=== PATIENT | female | born 1925 | race Caucasian/White ===

== ENCOUNTER 2016-04-15 15:20 | Inpatient (IN) | payer BC ==
--- NOTE | 2016-04-15 15:28 | PDOC ---
History of Present Illness - General Stated Complaint: FALL Time Seen by Provider: 04/15/16 15:23 - History of Present Illness Initial Comments: 04/15/16 16:26 89 year old female with pmh CVA, HTN, HLPD, presented to the ED s/p witnessed mechanical fall where the patient fell foward. The pt injured both knees, nasal bridge laceration. The right knee is tender and swollen and she said is has been unable to bear weight on it. Pt is awake, alert and oriented to time, place person and situation, did not lose consciousness, no chest pain, no shortness of breath, no n/v, no dizziness or lightheadedness, no change in vision, no numbness or tingling. PMH: CVA, HTN, HLPD, Hyperthyroidism, MVP PSH: Hysterectomy NO smoking, no alcohol, no recreational drug Allergic to Ciprofloxacin, Codeine, penicillins ROS CONSTITUTIONAL: Absent: fever, no chills, no fatigue EYES: Absent: visual changes ENT: Absent: ear pain, no sore throat CARDIOVASCULAR: Absent: chest pain, no palpitations RESPIRATORY: Absent: cough, no SOB GI: Absent: abdominal pain, no nausea, no vomiting, no constipation, no diarrhea GENITOURINARY: Absent: dysuria, no frequency, no hematuria MUSCULOSKELETAL: right knee pain Absent: back pain, no arthralgia, no myalgia SKIN: Absent: rash NEURO: Absent: headache, focal weakness or paresthesias, dizziness, unsteady gait, seizure, mental status changes, bladder or bowel incontinence PE GENERAL: Well-appearing, well-nourished. No apparent distress. HEENT: Normocephalic, atraumatic. PERRL, EOM intact. CARDIOVASCULAR: Normal S1, S2. Regular rate and rhythm. PULMONARY: Clear to auscultation bilaterally. ABDOMEN: Soft, non-distended, non-tender. EXTREMITIES: b/l knee bruising and swelling. Right knee tenderness and limited range of motion to due severe pain. SKIN: 3 cm vertical laceration on nasal bridge bleeding Warm, dry. No rash NEUROLOGICAL: No periorbital tenderness, no rhinorrea, no otorrhea, no raccon sign, no battles signs, no hemotempaneum Alert, awake, appropriate. Cranial nerves 2-12 intact. No deficits to light touch and temperature in face, upper extremities and lower extremities. No motor deficits in the in face, upper extremities and lower extremities. Normoreflexic in the upper and lower extremities. Normal speech. Toes are down- going bilaterally. Gait is not observed 04/15/16 17:17 Past History - Past Medical History Allergies/Adverse Reactions: Allergies Allergy/AdvReac Type Severity Reaction Status Date / Time ciprofloxacin [From Cipro] Allergy Verified 04/15/16 15:40 ciprofloxacin HCl Allergy Verified 04/15/16 15:40 [From Cipro] codeine Allergy Verified 04/15/16 15:40 Penicillins Allergy Verified 04/15/16 15:40 Home Medications: Ambulatory Orders Levothyroxine [Synthroid -] 0.1 mg PO DAILY 02/17/13 Lisinopril [Prinivil] 10 mg PO DAILY 02/17/13 Aspirin/Dipyridamole [Aggrenox -] 1 combo PO BID 10/27/13 Metoprolol Tartrate [Lopressor -] 25 mg PO DAILY 10/27/13 Simvastatin [Zocor -] 20 mg PO HS 10/27/13 Nitroglycerin Sublingual [Nitrostat -] 0.4 mg SL PRN 09/16/14 Ranitidine [Zantac -] 150 mg PO HS #0 tablet 09/17/14 Aspirin/Dipyridamole [Aggrenox -] 1 combo PO BID 04/15/16 Cholecalciferol (Vitamin D3) [Vitamin D3 -] 400 unit PO DAILY 04/15/16 Famotidine/Ca Carb/Mag Hydrox [Pepcid Complete Tablet Chew] 1 each PO DAILY 02/19 Pantoprazole Sodium 40 mg PO DAILY 04/15/16 Cardiac Disorders: Yes (CAD, ANGINA,MITRAL VALVE PROPLAPSE) GI Disorders: Yes (REFLUX) HTN: Yes Hypercholesterolemia: Yes Suicide Attempt (Hx): No Thyroid Disease: Yes - Immunization History Immunization Up to Date: Yes - Psycho/Social/Smoking Cessation Hx Anxiety: No Suicidal Ideation: No Smoking Status: Yes Smoking History: Unknown if ever smoked Number of Cigarettes Smoked Daily: 0 Hx Alcohol Use: No Drug/Substance Use Hx: No Substance Use Type: None Hx Substance Use Treatment: No ED Treatment Course - LABORATORY CBC & Chemistry Diagram: 04/15/16 15:50 04/15/16 15:50 Medical Decision Making - Medical Decision Making 04/15/16 17:18 89 year old female with pmh CVA, HTN, HPLD s/p fall with b/l knee injury and nose laceration Plastic surgery consulted Dr Webb CBC CMP Consider cardial profile Pt PTT CT head CT facial Bones Xray b/l knee tetanus Vaccine Nose laceration sutured By DR Mckeon. Pt is to follow with Dr Pipo Villafuerte [phone] [place] [address] Awaiting result from Head/facial Bones CT Awaiting results from Xray of the Knee 04/15/16 18:25 XRay left knee showed no acute fracture Xray Right knee showed patellar fracture Awaiting CT head and Facial bone results Orthopedist consulted Dr Claros Will Admit to [facility] waiting for ortho consult 04/15/16 19:[address] showed no acute parenchyma abnormality. No hemorrhage, mass, or acute territorial infarct, no skull fracture. Atrophy and chronic small vessel ischemic changes. B/l nasal fractures Facial bone CT Laceration of mid nasal soft tissue. B/l nasal fracture, probably acute. Mucoperiosteal thickening paranasal sinuses. Small fluid right maxillary sinus. Pt will be admitted to for patellar fracture *DC/Admit/Observation/Transfer Diagnosis at time of Disposition: Fracture of right patella - Discharge Dispostion Admit: Yes Decision to Admit order Date/Time: 04/15/16 19:38 S/P fall with nose fracture and right patellar fracture. Unable to bear weight on right leg. Will place on observation pending orthopedist evaluation.
--- NOTE | 2016-04-15 15:49 | PDOC ---
Attending Attestation - Resident Resident Name: Jose Carlos Pineda - ED Attending Attestation I have performed the following: I have examined & evaluated the patient, The case was reviewed & discussed with the resident, I agree w/resident's findings & plan, Exceptions are as noted - HPI HPI: 04/15/16 15:43 The patient is an 89 year old female, who takes aggrenox, and presents with facial trauma after a mechanical fall. She tripped over irregular ground. She denies loss of consciousness. She denies neck, chest, back pain or injury. She injured her face and right/left knee. 04/15/16 15:50 04/15/16 15:55 - Physicial Exam PE: 04/15/16 15:49 There is an irregular laceration to the nasal bridge There is minimal underlying nasal bone tenderness There is bilateral knee tenderness (R>L) 04/15/16 15:55 - Medical Decision Making 04/15/16 15:51 Will obtain Head and Facial CT Will obtain bilateral knee films Will administer tetanus 04/15/16 16:18 Plastics is at the bedside, for laceration repair
[2016-04-15 16:07] VITALS: BMI 26.6
[2016-04-15 16:15] LABS: BASOPHIL 0.6 % (0-2.0); MCH 29.9 pg (25.7-33.7); MCHC 32.4 g/dl (32.0-36.0); MEAN CELL VOLUME 92.2 fl (80-96); MEAN PLT VOLUME 8.9 fl (7.5-11.1); NEUTROPHILS 69.5 % (42.8-82.8); PLATELET COUNT 268 K/MM3 (134-434); RDW 14.3 % (11.6-15.6); WHITE BLOOD COUNT 10.2 K/mm3 (4.0-10.0)
[2016-04-15] MEDS ORDERED: DIPHTH,PERTUSS(ACELL),TET 0.5 ML DISP.SYRIN IM ONE (16:18)
[2016-04-15 16:37] LABS: INR 1.05 (0.82-1.09); PROTHROMBIN TIME (PATIENT) 11.6 SEC (9.98-11.88)
[2016-04-15 16:39] LABS: ACTIVATED PTT 29.7 SECONDS (26.9-34.4)
[2016-04-15 16:49] LABS: ALBUMIN 3.6 g/dl (3.4-5.0); ALK PHOS 43 U/L (45-117); ANION GAP 9 (8-16); BILIRUBIN,TOTAL 0.4 mg/dL (0.2-1.0); CALCIUM 8.6 mg/dL (8.5-10.1); CO2 24 mmol/L (21-32); CREATININE 0.8 mg/dL (0.55-1.02); GLUCOSE,RANDOM 88 mg/dL (74-106); SGOT/AST 17 U/L (15-37); SGPT/ALT 21 U/L (12-78); TOT PROT 6.6 g/dl (6.4-8.2)
--- NOTE | 2016-04-15 19:30 | PN ---
Teaching Attending Note Name of Resident: Steffen Pryor ATTENDING PHYSICIAN STATEMENT I saw and evaluated the patient. I reviewed the resident's note and discussed the case with the resident. I agree with the resident's findings and plan as documented. SUBJECTIVE: 89 F with pmhx of CVA, HTN, HLD, hypothyriodism, who had tripped over a pot hole and presented with facial lacerations/trauma and R. knee swelling and pain. Denies any chest pain, pressure or shortness of breath. No dizziness, lightheadedness or loc. OBJECTIVE: Physical: VS: Vital Signs Period Temp Pulse Resp BP Sys/Smith Pulse Ox Last 24 Hr 98 F 61 20 160/82 100 GEN: NAD, Resting in bed HEENT: Nasal laceration, bilateral facial bruising under eye, PERRL, EOMI CARD: RRR S1, S2 RESP: CTAB ABD: BSX4, NTD to palpation EXT: R. knee with bruising and edema, tender to palpation, DP pulses intact. CBCD WBC 10.2 K/mm3 (4.0-10.0) H D 04/15/16 15:50 RBC 4.65 M/mm3 (3.60-5.2) 04/15/16 15:50 Hgb 13.9 GM/dL (10.7-15.3) 04/15/16 15:50 Hct 42.9 % (32.4-45.2) 04/15/16 15:50 MCV 92.2 fl (80-96) 04/15/16 15:50 MCHC 32.4 g/dl (32.0-36.0) 04/15/16 15:50 RDW 14.3 % (11.6-15.6) 04/15/16 15:50 Plt Count 268 K/MM3 (134-434) D 04/15/16 15:50 MPV 8.9 fl (7.5-11.1) 04/15/16 15:50 CMP Sodium 144 mmol/L (136-145) 04/15/16 15:50 Potassium 3.9 mmol/L (3.5-5.1) 04/15/16 15:50 Chloride 111 mmol/L (98-107) H 04/15/16 15:50 Carbon Dioxide 24 mmol/L (21-32) 04/15/16 15:50 Anion Gap 9 (8-16) 04/15/16 15:50 BUN 17 mg/dL (7-18) 04/15/16 15:50 Creatinine 0.8 mg/dL (0.55-1.02) 04/15/16 15:50 Creat Clearance w eGFR > 60 (>60) 04/15/16 15:50 Random Glucose 88 mg/dL (74-106) 04/15/16 15:50 Calcium 8.6 mg/dL (8.5-10.1) 04/15/16 15:50 Total Bilirubin 0.4 mg/dL (0.2-1.0) D 04/15/16 15:50 AST 17 U/L (15-37) 04/15/16 15:50 ALT 21 U/L (12-78) 04/15/16 15:50 Alkaline Phosphatase 43 U/L (45-117) L D 04/15/16 15:50 Total Protein 6.6 g/dl (6.4-8.2) 04/15/16 15:50 Albumin 3.6 g/dl (3.4-5.0) 04/15/16 15:50 Medication Instructions Recorded Levothyroxine [Synthroid -] 0.1 mg PO DAILY 02/17/13 Lisinopril [Prinivil] 10 mg PO DAILY 02/17/13 Aspirin/Dipyridamole [Aggrenox -] 1 combo PO BID 10/27/13 Metoprolol Tartrate [Lopressor -] 25 mg PO DAILY 10/27/13 Simvastatin [Zocor -] 20 mg PO HS 10/27/13 Nitroglycerin Sublingual 0.4 mg SL PRN 09/16/14 [Nitrostat -] Ranitidine [Zantac -] 150 mg PO HS #0 tablet 09/17/14 Aspirin/Dipyridamole [Aggrenox -] 1 combo PO BID 04/15/16 Cholecalciferol (Vitamin D3) 400 unit PO DAILY 04/15/16 [Vitamin D3 -] Famotidine/Ca Carb/Mag Hydrox 1 each PO DAILY 04/15/16 [Pepcid Complete Tablet Chew] Pantoprazole Sodium 40 mg PO DAILY 04/15/16 CT HEAD- No acute hemmorage- Lytic lesion parietal bone ASSESSMENT AND PLAN: 89 F with pmhx of htn, hld, hypothyriod, cva who presents s/p fall and found to have a right patellar fracture 1.) Right Patellar Fracture - NPO - Ortho Consult - Type and Screen - Coags in am - Cbc - Pain control - Hold Aggregnox 2.) Nasal Laceration - Seen by plastics - Recc Bactrim and Bacitracin ointment on nasal bridge 3.) Lytic Lesion in Parietal Bone - Needs outpt. Bone Scan 4.) HTN - C/W Lopressor/Bakari-I 5.) Hypothyriodism - C/W home dose Synthriod 6.) HLD - C/W Statin 7.) DVT Ppx - SCD F: None E: Trend N: NPO Admit to Med-Sx
[2016-04-15] MEDS ORDERED: ACETAMINOPHEN 1000 MG/100 ML VIAL (NON FORMULARY) IVPB ONE (19:31)
[2016-04-15] MEDS ORDERED: ACETAMINOPHEN INJECTION 100 ML IVPB ONE (19:53)
[2016-04-15] MEDS ORDERED: NITROGLYCERIN SUBLINGUAL 1/150 0.4 MG TAB SL PRN (20:15)
[2016-04-15] MEDS ORDERED: PATIENT'S OWN MEDICATION (NON-FORMULARY) (Famotidine/Ca Carb/Mag Hydrox [Pepcid Complete T PO SCH (20:15)
--- NOTE | 2016-04-15 20:40 | HP ---
CHIEF COMPLAINT: I fell and broke my knee PCP: Dr. Fan HISTORY OF PRESENT ILLNESS: 89 yo F with h/o CVA, HTN, HLD, hypothyroidism, GERD presented to the ED after a witnessed mechanical fall. Patient was crossing the street and tripped over a pothole in where her foot was caught. She subsequently fell forward onto the ground and landed on her b/l knees and face. However, she did not lose consciousness. She is now unable to move her R leg due to severe (10/10) pain on both passive and active movement. Patient also sustained. a laceration to the nasal bridge and multiple bruises on upper lip, nose and cheeks. She denies fever, chills, n/v, chest pain, dizziness, vertigo, vision change, or weakness. ER course was notable for: (1) XRay left knee showed no acute fracture. Xray Right knee showed patellar fracture (2) Nose laceration sutured By DR Mckeon. (3) Head CT negative for bleed, positive for nasal fracture bilaterally Recent Travel: No PAST MEDICAL HISTORY: CVA, HTN, HLD, hypothyroidism, GERD PAST SURGICAL HISTORY: Hysterectomy Social History: Smoking: denies Alcohol: denies Drugs: denies Family History: Father (Parkinsons), Mother (cirrhosis), Brother (bladder cancer ) Allergies ciprofloxacin [From Cipro] Allergy (Verified 04/15/16 15:40) ciprofloxacin HCl [From Cipro] Allergy (Verified 04/15/16 15:40) codeine Allergy (Verified 04/15/16 15:40) Penicillins Allergy (Verified 04/15/16 15:40) HOME MEDICATIONS: Medication Instructions Recorded Levothyroxine [Synthroid -] 0.1 mg PO DAILY 02/17/13 Lisinopril [Prinivil] 10 mg PO DAILY 02/17/13 Aspirin/Dipyridamole [Aggrenox -] 1 combo PO BID 10/27/13 Metoprolol Tartrate [Lopressor -] 25 mg PO DAILY 10/27/13 Simvastatin [Zocor -] 20 mg PO HS 10/27/13 Nitroglycerin Sublingual 0.4 mg SL PRN 09/16/14 [Nitrostat -] Ranitidine [Zantac -] 150 mg PO HS #0 tablet 09/17/14 Aspirin/Dipyridamole [Aggrenox -] 1 combo PO BID 04/15/16 Cholecalciferol (Vitamin D3) 400 unit PO DAILY 04/15/16 [Vitamin D3 -] Famotidine/Ca Carb/Mag Hydrox 1 each PO DAILY 04/15/16 [Pepcid Complete Tablet Chew] Pantoprazole Sodium 40 mg PO DAILY 04/15/16 REVIEW OF SYSTEMS CONSTITUTIONAL: Absent: fever, chills, diaphoresis, generalized weakness, malaise, loss of appetite, weight change HEENT: nose pain Absent: rhinorrhea, nasal congestion, throat pain, throat swelling, difficulty swallowing, mouth swelling, ear pain, eye pain, visual changes CARDIOVASCULAR: Absent: chest pain, syncope, palpitations, irregular heart rate, lightheadedness , peripheral edema RESPIRATORY: Absent: cough, shortness of breath, dyspnea with exertion, orthopnea, wheezing, stridor, hemoptysis GASTROINTESTINAL: Absent: abdominal pain, abdominal distension, nausea, vomiting, diarrhea, constipation, melena, hematochezia GENITOURINARY: Absent: dysuria, frequency, urgency, hesitancy, hematuria, flank pain, genital pain MUSCULOSKELETAL: knee pain Absent: myalgia, arthralgia, joint swelling, back pain, neck pain SKIN: Absent: rash, itching, pallor HEMATOLOGIC/IMMUNOLOGIC: Absent: easy bleeding, easy bruising, lymphadenopathy, frequent infections ENDOCRINE: Absent: unexplained weight gain, unexplained weight loss, heat intolerance, cold intolerance NEUROLOGIC: Absent: headache, focal weakness or paresthesias, dizziness, unsteady gait, seizure, mental status changes, bladder or bowel incontinence PSYCHIATRIC: Absent: anxiety, depression, suicidal or homicidal ideation, hallucinations. PHYSICAL EXAMINATION Last Vital Signs Temp Pulse Resp BP Pulse Ox 98 F 70 18 137/70 97 04/15/16 15:40 04/15/16 20:20 04/15/16 20:20 04/15/16 20:20 04/15/16 20:20 GENERAL: Awake, alert, and fully oriented, in mild pain. HEAD: Normal with no signs of trauma. EYES: Pupils equal, round and reactive to light, extraocular movements intact, sclera anicteric, conjunctiva clear. No lid lag. EARS, NOSE, THROAT: laceration to nasal bridge, bruises and hematoma in b/l nasal wings and upper lips. oropharynx clear without exudates. Moist mucous membranes. NECK: Normal range of motion, supple without lymphadenopathy, JVD, or masses. LUNGS: Breath sounds equal, clear to auscultation bilaterally. No wheezes, and no crackles. No accessory muscle use. HEART: Regular rate and rhythm, normal S1 and S2 without murmur, rub or gallop. ABDOMEN: Soft, nontender, not distended, normoactive bowel sounds, no guarding, no rebound, no masses. No hepatomegaly or splenomegaly. UPPER EXTREMITIES: bruises in L middle finger and ring finger LOWER EXTREMITIES: absent pulses b/l, cold extremities, No calf tenderness. No peripheral edema. R knee swelling and bruise, pain on passive and active movement. L knee bruise, full ROM. NEUROLOGICAL: Cranial nerves II-XII intact. Normal speech. PSYCHIATRIC: Cooperative. Good eye contact. Appropriate mood and affect. Laboratory Last Values WBC 10.2 K/mm3 (4.0-10.0) H D 04/15/16 15:50 RBC 4.65 M/mm3 (3.60-5.2) 04/15/16 15:50 Hgb 13.9 GM/dL (10.7-15.3) 04/15/16 15:50 Hct 42.9 % (32.4-45.2) 04/15/16 15:50 MCV 92.2 fl (80-96) 04/15/16 15:50 MCHC 32.4 g/dl (32.0-36.0) 04/15/16 15:50 RDW 14.3 % (11.6-15.6) 04/15/16 15:50 Plt Count 268 K/MM3 (134-434) D 04/15/16 15:50 MPV 8.9 fl (7.5-11.1) 04/15/16 15:50 Neutrophils % 69.5 % (42.8-82.8) D 04/15/16 15:50 Lymphocytes % 21.3 % (8-40) D 04/15/16 15:50 Monocytes % 7.6 % (3.8-10.2) 04/15/16 15:50 Eosinophils % 1.0 % (0-4.5) 04/15/16 15:50 Basophils % 0.6 % (0-2.0) 04/15/16 15:50 INR 1.05 (0.82-1.09) 04/15/16 15:50 PTT (Actin FS) 29.7 SECONDS (26.9-34.4) 04/15/16 15:50 Sodium 144 mmol/L (136-145) 04/15/16 15:50 Potassium 3.9 mmol/L (3.5-5.1) 04/15/16 15:50 Chloride 111 mmol/L (98-107) H 04/15/16 15:50 Carbon Dioxide 24 mmol/L (21-32) 04/15/16 15:50 Anion Gap 9 (8-16) 04/15/16 15:50 BUN 17 mg/dL (7-18) 04/15/16 15:50 Creatinine 0.8 mg/dL (0.55-1.02) 04/15/16 15:50 Creat Clearance w eGFR > 60 (>60) 04/15/16 15:50 Random Glucose 88 mg/dL (74-106) 04/15/16 15:50 Calcium 8.6 mg/dL (8.5-10.1) 04/15/16 15:50 Total Bilirubin 0.4 mg/dL (0.2-1.0) D 04/15/16 15:50 AST 17 U/L (15-37) 04/15/16 15:50 ALT 21 U/L (12-78) 04/15/16 15:50 Alkaline Phosphatase 43 U/L (45-117) L D 04/15/16 15:50 Total Protein 6.6 g/dl (6.4-8.2) 04/15/16 15:50 Albumin 3.6 g/dl (3.4-5.0) 04/15/16 15:50 Urine Color Yellow 04/15/16 20:20 Urine Appearance Slcloudy 04/15/16 20:20 Urine pH 5.0 (5.0-8.0) 04/15/16 20:20 Ur Specific [place] 1.016 (1.001-1.035) 04/15/16 20:20 Urine Protein Negative (NEGATIVE) 04/15/16 20:20 Urine Glucose (UA) Negative (NEGATIVE) 04/15/16 20:20 Urine Ketones Trace (NEGATIVE) H 04/15/16 20:20 Urine Blood 2+ (NEGATIVE) H 04/15/16 20:20 Urine Nitrite Negative (NEGATIVE) 04/15/16 20:20 Urine Bilirubin Negative (NEGATIVE) 04/15/16 20:20 Urine Urobilinogen Negative E.U./dl (0.2-1.0) 04/15/16 20:20 Ur Leukocyte Esterase 2+ (NEGATIVE) H 04/15/16 20:20 Blood Type A POSITIVE 04/15/16 20:00 Antibody Screen Negative 04/15/16 20:00 Imaging studies: X-ray: left knee showed no acute fracture. Right knee showed patellar fracture Head CT: negative for bleed, positive for nasal fracture bilaterally ASSESSMENT/PLAN: 89 yo F admitted to med/surg for R patellar fracture s/p mechanical fall. Patellar fracture - tylenol for pain control - orthopedics consult Nasal fracture - laceration sutured - bacitracin to nasal wound - bactrim PO BID Hypercholesteremia - cont. home meds HTN - cont. home meds h/o CVA - hold aggrenox for orthopedic procedure next day FEN - NS 75cc/hr - normal lytes - NPO after midnight Prophylaxis - DVT: hold aggrenox; SCD contraindicated - GI: on protonix - deconditioning: fall precaution, bed rest Visit type - Emergency Visit Emergency Visit: Yes ED Registration Date: 04/15/16 Care time: The patient presented to the Emergency Department on the above date and was hospitalized for further evaluation of their emergent condition. - New Patient This patient is new to me today: Yes Date on this admission: 04/15/16 - Critical Care Critical Care patient: No
[2016-04-15 21:08] LABS: URINE APPEARANCE SLCLOUDY; URINE BILIRUBIN NEGATIVE (NEGATIVE); URINE COLOR YELLOW; URINE GLUCOSE (UA) NEGATIVE (NEGATIVE); URINE KETONE TRACE (NEGATIVE); URINE NITRITE NEGATIVE (NEGATIVE); URINE PROTEIN NEGATIVE (NEGATIVE); URINE UROBILINOGEN NEGATIVE E.U./dl (0.2-1.0)
[2016-04-15 21:09] LABS: URINE BLOOD 2+ (NEGATIVE); URINE LEUK ESTERASE 2+ (NEGATIVE)
[2016-04-15 21:10] LABS: URINE MUCUS RARE; URINE RBC 11 /hpf (0-3); URINE WBC 4 /hpf (3-5)
[2016-04-15 21:40] LABS: TROPONIN I < 0.02 ng/ml (0.015-0.045)
[2016-04-15] MEDS: SODIUM CHLORIDE 1,000 ML IV SCH (22:00)
[2016-04-15] MEDS: BACITRACIN 30 GM TUBE TOPICAL OINTMENT TP SCH (22:08)
[2016-04-15] MEDS: SULFAMETHOXAZOLE/TRIMETHOPRIM 800MG/160MG D.S. TABLET PO SCH (22:08)
[2016-04-15] MEDS: METOPROLOL TARTRATE 25 MG TABLET (FP) PO SCH (22:08)
[2016-04-15] MEDS: PANTOPRAZOLE 40 MG TABLET (FP) PO SCH (22:08)
[2016-04-15] MEDS: LISINOPRIL 10 MG TABLET (FP) PO SCH (22:08)
[2016-04-15] MEDS: RANITIDINE HCL 150 MG TABLET (FP) PO SCH (22:08)
[2016-04-15] MEDS: CHOLECALCIFEROL (VITAMIN D3) 400 UNIT TABLET (FP) PO SCH (22:08)
[2016-04-15] MEDS: ATORVASTATIN CA 10 MG TABLET (FP) PO SCH (22:08)
[2016-04-16] MEDS: ACETAMINOPHEN 325 MG TABLET (FP) PO PRN ×2 (03:13→09:51)
[2016-04-16] MEDS: LEVOTHYROXINE NA 100 MCG TABLET (FP) PO SCH (06:11)
[2016-04-16 08:25] LABS: MCH 31.1 pg (25.7-33.7); MCHC 33.6 g/dl (32.0-36.0); MEAN CELL VOLUME 92.6 fl (80-96); MEAN PLT VOLUME 8.7 fl (7.5-11.1); PLATELET COUNT 216 K/MM3 (134-434); RDW 14.4 % (11.6-15.6); WHITE BLOOD COUNT 8.9 K/mm3 (4.0-10.0)
[2016-04-16 08:40] LABS: INR 1.16 (0.82-1.09); PROTHROMBIN TIME (PATIENT) 12.8 SEC (9.98-11.88)
[2016-04-16 08:42] LABS: ACTIVATED PTT 30.4 SECONDS (26.9-34.4)
[2016-04-16 09:07] LABS: CALCIUM 8.7 mg/dL (8.5-10.1); CREATININE 0.8 mg/dL (0.55-1.02)
[2016-04-16] MEDS: METOPROLOL TARTRATE 25 MG TABLET (FP) PO SCH (09:51)
[2016-04-16] MEDS: SULFAMETHOXAZOLE/TRIMETHOPRIM 800MG/160MG D.S. TABLET PO SCH ×2 (09:51→21:46)
[2016-04-16] MEDS: LISINOPRIL 10 MG TABLET (FP) PO SCH (09:51)
[2016-04-16] MEDS: CHOLECALCIFEROL (VITAMIN D3) 400 UNIT TABLET (FP) PO SCH (09:51)
[2016-04-16] MEDS: PANTOPRAZOLE 40 MG TABLET (FP) PO SCH (09:51)
[2016-04-16] MEDS: BACITRACIN 30 GM TUBE TOPICAL OINTMENT TP SCH ×2 (09:54→21:46)
[2016-04-16] MEDS: SODIUM CHLORIDE 1,000 ML IV SCH ×2 (09:55→21:49)
--- NOTE | 2016-04-16 10:34 | PN ---
Physical Exam: SUBJECTIVE: Patient seen and examined. She complains of pain in her right knee. OBJECTIVE: Vital Signs Period Temp Pulse Resp BP Sys/Smith Pulse Ox Last 24 Hr 97.2 F-98.0 F 60-74 18-20 131-138/60-77 95-97 GENERAL: The patient is awake, alert, and fully oriented, in no acute distress. HEAD: Periorbital ecchymoses. Laceration of bridge of nose. NECK: Trachea midline, full range of motion, supple. LUNGS: Breath sounds equal, clear to auscultation bilaterally, no wheezes, no crackles, no accessory muscle use. HEART: Regular rate and rhythm, S1, S2 without murmur, rub or gallop. ABDOMEN: Soft, nontender, nondistended, normoactive bowel sounds, no guarding, no rebound, no hepatosplenomegaly, no masses. EXTREMITIES: 2+ pulses, warm, well-perfused, no edema. Right knee swollen with ecchymosis. Laboratory Results - last 24 hr 04/15/16 04/15/16 04/15/16 20:00 20:20 20:54 WBC RBC Hgb Hct MCV MCHC RDW Plt Count MPV INR PTT (Actin FS) Sodium Potassium Chloride Carbon Dioxide Anion Gap BUN Creatinine Random Glucose Calcium Creatine Kinase 120 Troponin I < 0.02 Urine Color Yellow Urine Appearance Slcloudy Urine pH 5.0 Ur Specific [place] 1.016 Urine Protein Negative Urine Glucose (UA) Negative Urine Ketones Trace H Urine Blood 2+ H Urine Nitrite Negative Urine Bilirubin Negative Urine Urobilinogen Negative Ur Leukocyte Esterase 2+ H Urine RBC 11 Urine WBC 4 Ur Epithelial Cells Rare Urine Mucus Rare Blood Type A POSITIVE Antibody Screen Negative 04/16/16 04/16/16 04/16/16 07:15 07:15 07:15 WBC 8.9 RBC 3.98 Hgb 12.4 D Hct 36.8 MCV 92.6 MCHC 33.6 RDW 14.4 Plt Count 216 MPV 8.7 INR 1.16 H PTT (Actin FS) 30.4 Sodium 146 H Potassium 4.6 Chloride 112 H Carbon Dioxide 27 Anion Gap 7 L BUN 14 Creatinine 0.8 Random Glucose 82 Calcium 8.7 Creatine Kinase Troponin I Urine Color Urine Appearance Urine pH Ur Specific [place] Urine Protein Urine Glucose (UA) Urine Ketones Urine Blood Urine Nitrite Urine Bilirubin Urine Urobilinogen Ur Leukocyte Esterase Urine RBC Urine WBC Ur Epithelial Cells Urine Mucus Blood Type Antibody Screen Active Medications Generic Name Dose Route Start Last Admin Trade Name Freq PRN Reason Stop Dose Admin Acetaminophen 650 mg 04/15/16 21:45 04/16/16 09:51 Tylenol - PO 650 mg Q6H PRN Administration PAIN SCALE 6-10 Atorvastatin Calcium 10 mg 04/15/16 22:00 04/15/16 22:08 Lipitor - PO 10 mg HS RENETTA Administration Bacitracin 1 applic 04/15/16 22:00 04/16/16 09:54 Bacitracin - TP 1 applic BID RENETTA Administration Cholecalciferol 400 unit 04/15/16 20:45 04/16/16 09:51 Vitamin D3 - PO 400 unit DAILY RENETTA Administration Sodium Chloride 1,000 mls @ 75 mls/hr 04/15/16 22:00 04/16/16 09:55 Normal Saline - IV 75 mls/hr ASDIR RENETTA Administration Levothyroxine Sodium 100 mcg 04/16/16 07:00 04/16/16 06:11 Synthroid - PO 100 mcg DAILY@0700 RENETTA Administration Lisinopril 10 mg 04/15/16 20:15 04/16/16 09:51 Prinivil PO 10 mg DAILY RENETTA Administration Metoprolol Tartrate 25 mg 04/15/16 20:15 04/16/16 09:51 Lopressor - PO 25 mg DAILY RENETTA Administration Nitroglycerin 0.4 mg 04/15/16 20:15 Nitrostat - SL PRN PRN Pantoprazole Sodium 40 mg 04/15/16 20:45 04/16/16 09:51 Protonix - PO 40 mg DAILY RENETTA Administration Ranitidine HCl 150 mg 04/15/16 22:00 04/15/16 22:08 Zantac - PO 150 mg HS RENETTA Administration Trimethoprim/Sulfamethoxazole 1 each 04/15/16 22:00 04/16/16 09:51 Bactrim Ds - PO 1 each BID RENETTA Administration ASSESSMENT/PLAN: This is an 89-year-old woman with a history of HTN, hyperlipidemia, CVA, hypothyroidism, GERD who came to the ER with a right patellar fracture after a fall. 1. Right patellar fracture - Pain control - Orthopedic surgery consult 2. Nasal bone fractures - Laceration sutured - Continue Bacitracin and Bactrim 3. Hyperlipidemia - Continue Lipitor 4. Hypertension - Continue Lisinopril, Lopressor 5. History of CVA - Aggrenox held secondary to trauma and for possibility of surgery
[2016-04-16] MEDS: traMADol HCL 50 MG TABLET PO PRN ×2 (11:04→21:45)
--- NOTE | 2016-04-16 11:30 | EKG ---
Test Reason : Blood Pressure : / mmHG Vent. Rate : 075 BPM Atrial Rate : 075 BPM P-R Int : 156 ms QRS Dur : 074 ms QT Int : 428 ms P-R-T Axes : 096 -06 -24 degrees QTc Int : 477 ms NORMAL SINUS RHYTHM WITH SINUS ARRHYTHMIA ST PROLONGED QT ABNORMAL ECG WHEN COMPARED WITH ECG OF 16-SEP-2014 02:22, CRITERIA FOR SEPTAL INFARCT ARE NO LONGER PRESENT NONSPECIFIC T WAVE ABNORMALITY, WORSE IN INFERIOR LEADS T WAVE INVERSION NOW EVIDENT IN ANTEROLATERAL LEADS Confirmed by ANGEL RODRIGUEZ MD ([id number]) on 04/16/2016 11:29:33 AM Referred By: Overread By: ANGEL RODRIGUEZ MD
--- NOTE | 2016-04-16 12:04 | CONSULT ---
Consult Consult Specialty:: Orthopedics Reason for Consultation:: Right patella fracture - History of Present Illness Chief Complaint: Right knee pain and swelling History of Present Illness: 89 y/o female with a PMHx significant for CVA, HTN, HLD, MVP presents with right knee pain. The patient states that yesterday while walking she tripped and fell on a crack in the sidewalk. She landed on the right knee and also hit her face into the ground. States that since then she has had pain to the anterior knee and marked swelling. States she is unable to bear weight on the RLE secondary to the pain. The patient reports a history of bilateral knee OA. No other past knee injury/surgery. - History Source History Provided By: Patient, Family Member Limitations to Obtaining History: No Limitations - Past Medical History SWIMMER: Yes: CVA Cardio/Vascular: Yes: HTN, Hyperlipdemia Gastrointestinal: Yes: GERD - Past Surgical History Past Surgical History: Yes: Hysterectomy - Alcohol/Substance Use Hx Alcohol Use: No - Smoking History Smoking history: Unknown if ever smoked Have you smoked in the past 12 months: No Aproximately how many cigarettes per day: 0 - Social History ADL: Independent History of Recent Travel: No Home Medications - Allergies Allergies/Adverse Reactions: Allergies Allergy/AdvReac Type Severity Reaction Status Date / Time ciprofloxacin [From Cipro] Allergy Verified 04/15/16 15:40 ciprofloxacin HCl Allergy Verified 04/15/16 15:40 [From Cipro] codeine Allergy Verified 04/15/16 15:40 Penicillins Allergy Verified 04/15/16 15:40 - Home Medications Home Medications: Ambulatory Orders Levothyroxine [Synthroid -] 0.1 mg PO DAILY 02/17/13 Lisinopril [Prinivil] 10 mg PO DAILY 02/17/13 Aspirin/Dipyridamole [Aggrenox -] 1 combo PO BID 10/27/13 Metoprolol Tartrate [Lopressor -] 25 mg PO DAILY 10/27/13 Simvastatin [Zocor -] 20 mg PO HS 10/27/13 Nitroglycerin Sublingual [Nitrostat -] 0.4 mg SL PRN 09/16/14 Ranitidine [Zantac -] 150 mg PO HS #0 tablet 09/17/14 Aspirin/Dipyridamole [Aggrenox -] 1 combo PO BID 04/15/16 Cholecalciferol (Vitamin D3) [Vitamin D3 -] 400 unit PO DAILY 04/15/16 Famotidine/Ca Carb/Mag Hydrox [Pepcid Complete Tablet Chew] 1 each PO DAILY 02/19 Pantoprazole Sodium 40 mg PO DAILY 04/15/16 Family Disease History - Family Disease History Family History: Unremarkable Family Disease History: Other: Father (Parkinsons), Mother (cirrhosis), Brother (bladder cancer) Review of Systems - Review of Systems Constitutional: reports: No Symptoms Eyes: reports: No Symptoms HENT: reports: No Symptoms Cardiovascular: reports: No Symptoms Respiratory: reports: No Symptoms Gastrointestinal: reports: No Symptoms Musculoskeletal: reports: Joint Pain (right knee) Neurological: reports: No Symptoms Physical Exam for Ortho Vital Signs: Vital Signs Temperature 97.9 F 04/16/16 09:37 Pulse Rate 74 04/16/16 09:37 Respiratory Rate 20 04/16/16 09:37 Blood Pressure 138/77 04/16/16 09:37 O2 Sat by Pulse Oximetry (%) 97 04/15/16 20:20 Constitutional: Yes: Well Nourished, No Distress, Calm Neck: Yes: WNL, Supple, Trachea Midline Cardiovascular: Yes: WNL, Regular Rate and Rhythm Respiratory: Yes: WNL, Regular Neurological: Yes: WNL, Alert, Oriented Labs: CBC, BMP 04/16/16 07:15 04/16/16 07:15 INR, PTT INR 1.16 (0.82-1.09) H 04/16/16 07:15 - Lower Extremity Knee: Yes: Right, Ecchymosis, Limited ROM, Pain, Swelling (Large effusion), Tenderness (anteriorly over the patella), Other (decreased ROM secondary to pain ; decresaed quadriceps strength, EHL/FHL intact) - Affected Extremity Motor Strength: 5/5: Right Leg Peripheral Pulses: 2+ Left Doralis Pedis, 2+ Right Dorsalis Pedis Neuro/Vascular Assessment: Yes: Warm, [place], Normal Sensation Imaging - Results X-ray: Image Reviewed (Right knee x-ray images and report reviewed showing a displaced patella fracture) Problem List - Problems (1) Right patella fracture Code(s): S82.001A - UNSP FRACTURE OF RIGHT PATELLA, INIT FOR CLOS FX Qualifiers: Encounter type: initial encounter Fracture type: closed Fracture morphology: unspecified fracture morphology Fracture alignment: displaced Qualified Code(s): S82.001A - Unspecified fracture of right patella, initial encounter for closed fracture Assessment/Plan 89 y/o female with a PMHx significant for CVA, HTN, HLD and MVP presents s/p trip and fall at home yesterday. -I spoke to the patient and her family and discussed that there is a displaced patella fracture present. We reviewed the relevant anatomy and that these fractures can be treated both operatively or non-operatively. Prior to the injury the patient was ambulating without an assisted device at home. Given the patient's level of activity at baseline, surgical intervention would offer her the best chance to return to her previous function. I briefly reviewed surgical risks and benefits. The patient and her family expressed understanding. -Given the degree of swelling noted on exam today, the patient would benefit from waiting 1-2 weeks before ORIF -She can be discharged home and follow up out-patient with Dr. Adair this week -Discharge home with right knee immobilizer -Flat foot weight bear as tolerated -The case was discussed with Dr. Bell who agreed with the above clinical treatment plan
[2016-04-16] MEDS: RANITIDINE HCL 150 MG TABLET (FP) PO SCH (21:46)
[2016-04-16] MEDS: ATORVASTATIN CA 10 MG TABLET (FP) PO SCH (21:46)
[2016-04-17] MEDS: traMADol HCL 50 MG TABLET PO PRN ×2 (06:07→21:28)
[2016-04-17] MEDS: LEVOTHYROXINE NA 100 MCG TABLET (FP) PO SCH (06:08)
[2016-04-17] MEDS: PANTOPRAZOLE 40 MG TABLET (FP) PO SCH (10:07)
[2016-04-17] MEDS: BACITRACIN 30 GM TUBE TOPICAL OINTMENT TP SCH ×2 (10:07→21:29)
[2016-04-17] MEDS: METOPROLOL TARTRATE 25 MG TABLET (FP) PO SCH (10:07)
[2016-04-17] MEDS: LISINOPRIL 10 MG TABLET (FP) PO SCH (10:07)
[2016-04-17] MEDS: SULFAMETHOXAZOLE/TRIMETHOPRIM 800MG/160MG D.S. TABLET PO SCH ×2 (10:07→21:28)
[2016-04-17] MEDS: CHOLECALCIFEROL (VITAMIN D3) 400 UNIT TABLET (FP) PO SCH (10:07)
[2016-04-17] MEDS: SODIUM CHLORIDE 1,000 ML IV SCH ×2 (10:28→21:30)
--- NOTE | 2016-04-17 13:10 | PN ---
Progress Note (short form) - Note Progress Note: Subjective: Patient having persistent right knee pain and swelling. States she tried to ambulate using a walker yesterday with PT. States she feels uncomfortable going home prior to having the surgery performed. Vital Signs Temperature 97.7 F 04/17/16 08:05 Pulse Rate 72 04/17/16 08:05 Respiratory Rate 18 04/17/16 08:05 Blood Pressure 143/73 04/17/16 08:05 O2 Sat by Pulse Oximetry (%) 97 04/17/16 09:00 O: NAD. VSS. Afebrile. Right knee Right knee immobilizer removed. Large effusion and moderate swelling. Ecchymosis. Limited ROM secondary to pain and swelling. EHL/FHL intact. NVID. A/P: 89 y/o female with right displaced patella fracture -The patient and her daughter have agreed to proceed with surgery. They would like to have this performed prior to discharge home. -The patient has seen Dr. Jaime in the past and is requesting that he consult on the case as well -Remain in R knee immobilizer -Flat foot weight bear as tolerated with walker assistance Problem List - Problems (1) Right patella fracture Code(s): S82.001A - UNSP FRACTURE OF RIGHT PATELLA, INIT FOR CLOS FX Qualifiers: Encounter type: initial encounter Fracture type: closed Fracture morphology: unspecified fracture morphology Fracture alignment: displaced Qualified Code(s): S82.001A - Unspecified fracture of right patella, initial encounter for closed fracture
[2016-04-17] MEDS ORDERED: MAG HYDROX/AL HYDROX/SIMETH 30 ML UNIT-DOSE CUP PO PRN (14:52)
--- NOTE | 2016-04-17 14:58 | PN ---
Progress Note, Physician Chief Complaint: Ms Mei says she has pain in her right knee. Also had heartburn this morning after taking her medications. No cp or sob. - Current Medication List Current Medications: Active Medications Acetaminophen (Tylenol -) 650 mg PO Q6H PRN PRN Reason: PAIN SCALE 6-10 Last Admin: 04/16/16 09:51 Dose: 650 mg Atorvastatin Calcium (Lipitor -) 10 mg PO HS [facility] Last Admin: 04/16/16 21:46 Dose: 10 mg Bacitracin (Bacitracin -) 1 applic TP BID [facility] Last Admin: 04/17/16 10:07 Dose: 1 applic Cholecalciferol (Vitamin D3 -) 400 unit PO DAILY [facility] Last Admin: 04/17/16 10:07 Dose: 400 unit Sodium Chloride (Normal Saline -) 1,000 mls @ 75 mls/hr IV ASDIR [facility] Last Admin: 04/17/16 10:28 Dose: 75 mls/hr Levothyroxine Sodium (Synthroid -) 100 mcg PO DAILY@0700 [facility] Last Admin: 04/17/16 06:08 Dose: 100 mcg Lisinopril (Prinivil) 10 mg PO DAILY [facility] Last Admin: 04/17/16 10:07 Dose: 10 mg Metoprolol Tartrate (Lopressor -) 25 mg PO DAILY [facility] Last Admin: 04/17/16 10:07 Dose: 25 mg Nitroglycerin (Nitrostat -) 0.4 mg SL PRN PRN Pantoprazole Sodium (Protonix -) 40 mg PO DAILY [facility] Last Admin: 04/17/16 10:07 Dose: 40 mg Ranitidine HCl (Zantac -) 150 mg PO HS [facility] Last Admin: 04/16/16 21:46 Dose: 150 mg Tramadol HCl (Ultram -) 50 mg PO Q6H PRN PRN Reason: PAIN Last Admin: 04/17/16 06:07 Dose: 50 mg Trimethoprim/Sulfamethoxazole (Bactrim Ds -) 1 each PO BID [facility] Last Admin: 04/17/16 10:07 Dose: 1 each - Objective Vital Signs: Vital Signs Temperature 98.6 F 04/17/16 13:48 Pulse Rate 65 04/17/16 13:48 Respiratory Rate 18 04/17/16 08:05 Blood Pressure 152/73 04/17/16 13:48 O2 Sat by Pulse Oximetry (%) 97 04/17/16 09:00 Constitutional: Yes: Well Nourished, No Distress, Calm Eyes: Yes: Other (periorbital edema with bruising) HENT: Yes: Other (bruising) Cardiovascular: Yes: Regular Rate and Rhythm. No: Gallop, Murmur, Rub Respiratory: Yes: Regular, CTA Bilaterally. No: Rales, Rhonchi, Wheezes Gastrointestinal: Yes: Normal Bowel Sounds, Soft. No: Distention, Tenderness Extremities: Yes: Other (R knee in immobilizer) Edema: No Labs: CBC, BMP 04/16/16 07:15 04/16/16 07:15 INR, PTT INR 1.16 (0.82-1.09) H 04/16/16 07:15 Problem List - Problems (1) Right patella fracture Assessment/Plan: -orthopedic surgery consulted -recommended waiting 1-2 weeks before having surgery -family requested second opinion from Dr Jaime -consult placed -if needs 1-2 weeks waiting for edema to decrease, patient will need SNF placement as unsafe to go home -defer to Dr Jaime's expertise Code(s): S82.001A - UNSP FRACTURE OF RIGHT PATELLA, INIT FOR CLOS FX Qualifiers: Encounter type: initial encounter Fracture type: closed Fracture morphology: unspecified fracture morphology Fracture alignment: displaced Qualified Code(s): S82.001A - Unspecified fracture of right patella, initial encounter for closed fracture (2) GERD (gastroesophageal reflux disease) Assessment/Plan: -continue ranitidine -will add prn mylanta -monitor Code(s): K21.9 - GASTRO-ESOPHAGEAL REFLUX DISEASE WITHOUT ESOPHAGITIS (3) Nasal bone fracture Assessment/Plan: -continue bactrim and bacitracin -patient says it is not painful Code(s): S02.2XXA - FRACTURE OF NASAL BONES, INIT ENCNTR FOR CLOSED FRACTURE (4) Hypercholesteremia Assessment/Plan: -continue lipitor Code(s): E78.0 - PURE HYPERCHOLESTEROLEMIA * DO NOT USE * (5) Hypertension Assessment/Plan: -continue toprol and lisinopril -slightly elevated -monitor, may need to increase lisinopril Code(s): I10 - ESSENTIAL (PRIMARY) HYPERTENSION (6) Hypothyroid Assessment/Plan: -continue synthroid Code(s): E03.9 - HYPOTHYROIDISM, UNSPECIFIED
--- NOTE | 2016-04-17 16:03 | CONSULT ---
Consult - text type - Consultation Consultation Note: FULL CONSULT DICTATED IMP: RIGHT DISPLACED PATELLA FX PLAN: FAMILY TO DECIDE IF THEY WANT SURGERY. IF SO, WILL DO ORIF ON SUNDAY
--- NOTE | 2016-04-17 17:36 | CONS ---
DATE OF CONSULTATION: 04/17/2016 DATE OF OPERATION: 04/17/2016 ORTHOPEDIC CONSULTATION HISTORY OF PRESENT ILLNESS: Patient is an 89-year-old female status post fall 2 days ago in her right knee. She was on Aggrenox, a . Patient had a CAT scan of her head and her chest to rule out any pathology in those locations. REASON FOR ORTHOPEDICS CONSULTATION: Directed towards the right knee with an x-ray in the emergency room revealed a displaced patella fracture. Patient initially was consulted by Dr. Claros, family requested a second opinion, hence my evaluation at this point in time. PHYSICAL EXAMINATION: She has a swelling in the anterior aspect of her right knee. Her calf is soft, nontender. Good motion hip and ankle and toes and are vascularly intact. No ability to straight leg raise, and a possible gap in the patella is palpated. X-rays revealed a displaced angulated transverse right patella fracture through the superior 1/3 of the patella. IMPRESSION: Right patella fracture as described previously. Risks, benefits, and alternatives discussed with the family and with patient in great detail. I have offered the patient either conservative measures in a knee immobilizer, which would heal the fracture but leave the patient with a healed malunion of the patella, with its potential problems. I also offered the patient open reduction internal fixation which would give it better healing fracture but opens the patient to potential operative complications. As well I went through with her alternatives of both treatments with the patient and the family and gave them the option to work with me or with Dr. Claros. The family would like to think about their options and get back to me with their decision in the near future. DAMARIS AVINA M.D. [id number]
[2016-04-17] MEDS: RANITIDINE HCL 150 MG TABLET (FP) PO SCH (21:29)
[2016-04-17] MEDS: ATORVASTATIN CA 10 MG TABLET (FP) PO SCH (21:29)
[2016-04-18] MEDS: SODIUM CHLORIDE 1,000 ML IV SCH ×3 (02:00→22:00)
[2016-04-18] MEDS: LEVOTHYROXINE NA 100 MCG TABLET (FP) PO SCH (06:04)
[2016-04-18] MEDS: traMADol HCL 50 MG TABLET PO PRN ×2 (07:54→21:49)
[2016-04-18 08:41] LABS: CALCIUM 8.1 mg/dL (8.5-10.1); CREATININE 0.6 mg/dL (0.55-1.02); MAGNESIUM 2.2 mg/dL (1.8-2.4); PHOSPHOROUS 2.5 mg/dL (2.5-4.9)
[2016-04-18 09:09] LABS: BASOPHIL 0.6 % (0-2.0); EOSINOPHIL 1.4 % (0-4.5); MCH 31.2 pg (25.7-33.7); MCHC 33.5 g/dl (32.0-36.0); MEAN CELL VOLUME 93.3 fl (80-96); MEAN PLT VOLUME 9.2 fl (7.5-11.1); NEUTROPHILS 80.1 % (42.8-82.8); PLATELET COUNT 185 K/MM3 (134-434); WHITE BLOOD COUNT 11.5 K/mm3 (4.0-10.0)
[2016-04-18] MEDS ORDERED: PT OWN MED DRAWER 7, Y5N ONE (11:01)
[2016-04-18] MEDS: BACITRACIN 30 GM TUBE TOPICAL OINTMENT TP SCH ×2 (11:02→21:48)
[2016-04-18] MEDS: CHOLECALCIFEROL (VITAMIN D3) 400 UNIT TABLET (FP) PO SCH (11:08)
[2016-04-18] MEDS: LISINOPRIL 10 MG TABLET (FP) PO SCH (11:08)
[2016-04-18] MEDS: METOPROLOL TARTRATE 25 MG TABLET (FP) PO SCH (11:08)
[2016-04-18] MEDS: PANTOPRAZOLE 40 MG TABLET (FP) PO SCH (11:08)
[2016-04-18] MEDS: SULFAMETHOXAZOLE/TRIMETHOPRIM 800MG/160MG D.S. TABLET PO SCH ×2 (11:09→21:49)
--- NOTE | 2016-04-18 14:28 | PN ---
Progress Note, Physician Chief Complaint: Ms Mei says she has pain in her right knee. no cp, sob, n/v. - Current Medication List Current Medications: Active Medications Acetaminophen (Tylenol -) 650 mg PO Q6H PRN PRN Reason: PAIN SCALE 6-10 Last Admin: 04/16/16 09:51 Dose: 650 mg Al Hydroxide/Mg Hydroxide (Mylanta Oral Suspension -) 30 ml PO Q6H PRN PRN Reason: DYSPEPSIA Last Admin: 04/17/16 15:15 Dose: 30 ml Atorvastatin Calcium (Lipitor -) 10 mg PO HS [facility] Last Admin: 04/17/16 21:29 Dose: 10 mg Bacitracin (Bacitracin -) 1 applic TP BID [facility] Last Admin: 04/18/16 11:02 Dose: 1 applic Cholecalciferol (Vitamin D3 -) 400 unit PO DAILY [facility] Last Admin: 04/18/16 11:08 Dose: 400 unit Sodium Chloride (Normal Saline -) 1,000 mls @ 75 mls/hr IV ASDIR [facility] Last Admin: 04/18/16 13:46 Dose: 75 mls/hr Levothyroxine Sodium (Synthroid -) 100 mcg PO DAILY@0700 [facility] Last Admin: 04/18/16 06:04 Dose: 100 mcg Lisinopril (Prinivil) 10 mg PO DAILY [facility] Last Admin: 04/18/16 11:08 Dose: 10 mg Metoprolol Tartrate (Lopressor -) 25 mg PO DAILY [facility] Last Admin: 04/18/16 11:08 Dose: 25 mg Nitroglycerin (Nitrostat -) 0.4 mg SL PRN PRN Pantoprazole Sodium (Protonix -) 40 mg PO DAILY [facility] Last Admin: 04/18/16 11:08 Dose: 40 mg Ranitidine HCl (Zantac -) 150 mg PO HS [facility] Last Admin: 04/17/16 21:29 Dose: 150 mg Tramadol HCl (Ultram -) 50 mg PO Q6H PRN PRN Reason: PAIN Last Admin: 04/18/16 07:54 Dose: 50 mg Trimethoprim/Sulfamethoxazole (Bactrim Ds -) 1 each PO BID [facility] Last Admin: 04/18/16 11:09 Dose: 1 each - Objective Vital Signs: Vital Signs Temperature 98.4 F 04/18/16 09:33 Pulse Rate 104 H 04/18/16 09:33 Respiratory Rate 16 04/18/16 09:33 Blood Pressure 144/72 04/18/16 09:33 O2 Sat by Pulse Oximetry (%) 97 04/17/16 20:06 Constitutional: Yes: Well Nourished, No Distress, Calm Cardiovascular: Yes: Regular Rate and Rhythm. No: Gallop, Murmur, Rub Respiratory: Yes: Regular, CTA Bilaterally. No: Rales, Rhonchi, Wheezes Gastrointestinal: Yes: Normal Bowel Sounds, Soft. No: Distention, Tenderness Extremities: Yes: Other (R knee in immobilizer) Edema: No Labs: CBC, BMP 04/18/16 07:00 04/18/16 07:00 INR, PTT INR 1.16 (0.82-1.09) H 04/16/16 07:15 Problem List - Problems (1) Right patella fracture Code(s): S82.001A - UNSP FRACTURE OF RIGHT PATELLA, INIT FOR CLOS FX Qualifiers: Encounter type: initial encounter Fracture type: closed Fracture morphology: unspecified fracture morphology Fracture alignment: displaced Qualified Code(s): S82.001A - Unspecified fracture of right patella, initial encounter for closed fracture (2) GERD (gastroesophageal reflux disease) Code(s): K21.9 - GASTRO-ESOPHAGEAL REFLUX DISEASE WITHOUT ESOPHAGITIS (3) Nasal bone fracture Code(s): S02.2XXA - FRACTURE OF NASAL BONES, INIT ENCNTR FOR CLOSED FRACTURE (4) Hypercholesteremia Code(s): E78.0 - PURE HYPERCHOLESTEROLEMIA * DO NOT USE * (5) Hypertension Code(s): I10 - ESSENTIAL (PRIMARY) HYPERTENSION (6) Hypothyroid Code(s): E03.9 - HYPOTHYROIDISM, UNSPECIFIED Assessment/Plan (1) Right patella fracture Assessment/Plan: -appreciate Dr Jaime's assistance -spoke with anesthesia, requesting cardiac clearance -cardiology consult placed -medical stable for surgery, awaiting cardiology recommendations Code(s): S82.001A - UNSP FRACTURE OF RIGHT PATELLA, INIT FOR CLOS FX Qualifiers: Encounter type: initial encounter Fracture type: closed Fracture morphology: unspecified fracture morphology Fracture alignment: displaced Qualified Code(s): S82.001A - Unspecified fracture of right patella, initial encounter for closed fracture (2) GERD (gastroesophageal reflux disease) Assessment/Plan: -continue ranitidine -resolved Code(s): K21.9 - GASTRO-ESOPHAGEAL REFLUX DISEASE WITHOUT ESOPHAGITIS (3) Nasal bone fracture Assessment/Plan: -continue bactrim and bacitracin -patient says it is not painful Code(s): S02.2XXA - FRACTURE OF NASAL BONES, INIT ENCNTR FOR CLOSED FRACTURE (4) Hypercholesteremia Assessment/Plan: -continue lipitor Code(s): E78.0 - PURE HYPERCHOLESTEROLEMIA * DO NOT USE * (5) Hypertension Assessment/Plan: -continue toprol and lisinopril -continue to monitor Code(s): I10 - ESSENTIAL (PRIMARY) HYPERTENSION (6) Hypothyroid Assessment/Plan: -continue synthroid Code(s): E03.9 - HYPOTHYROIDISM, UNSPECIFIED
--- NOTE | 2016-04-18 17:15 | CONSULT ---
Consult Consult Specialty:: Cardiology Referred by:: Mita Reason for Consultation:: Cardiac evaluation and clearance - History of Present Illness Chief Complaint: S/P fall resulting in patella fracture and facial trauma History of Present Illness: Patient is an 89 year old female who is well known to our group (sees Dr. Chester Landon) with underlying history of HTN/HCVD, hyperlipdemia, hypothyroidism, mitral valve prolapse, right posterior cerebral artery stroke ( 2012), GERD/esophageal spasm, spinal stenosis awith sciatica. She had a mechanical fall resulting in nasal bone fracture and right patella fracture. She has echymosis on her face due to traumatic injury. She was seen by Dr. Jaime with input as reviewed. She is planned to proceed with knee surgery and cardiac clearance was requested. She denies LOC. She denies chest pain, shortness of breath or palpitations. She denies paroxysmal nocturnal dyspnea or orthopnea. She denies fever or chills. Denies headache or lightheadedness. Cardiology consultation was called for further evaluation and for cardiac clearance. 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 Cardio/Vascular: Yes: HTN, Hyperlipdemia Gastrointestinal: Yes: GERD - Past Surgical History Past Surgical History: Yes: Hysterectomy - Alcohol/Substance Use Hx Alcohol Use: No - Smoking History Smoking history: Unknown if ever smoked Have you smoked in the past 12 months: No Aproximately how many cigarettes per day: 0 - Social History ADL: Independent History of Recent Travel: No Home Medications - Allergies Allergies/Adverse Reactions: Allergies Allergy/AdvReac Type Severity Reaction Status Date / Time ciprofloxacin [From Cipro] Allergy Verified 04/15/16 15:40 ciprofloxacin HCl Allergy Verified 04/15/16 15:40 [From Cipro] codeine Allergy Verified 04/15/16 15:40 Penicillins Allergy Verified 04/15/16 15:40 - Home Medications Home Medications: Ambulatory Orders Levothyroxine [Synthroid -] 0.1 mg PO DAILY 02/17/13 Lisinopril [Prinivil] 10 mg PO DAILY 02/17/13 Aspirin/Dipyridamole [Aggrenox -] 1 combo PO BID 10/27/13 Metoprolol Tartrate [Lopressor -] 25 mg PO DAILY 10/27/13 Simvastatin [Zocor -] 20 mg PO HS 10/27/13 Nitroglycerin Sublingual [Nitrostat -] 0.4 mg SL PRN 09/16/14 Ranitidine [Zantac -] 150 mg PO HS #0 tablet 09/17/14 Aspirin/Dipyridamole [Aggrenox -] 1 combo PO BID 04/15/16 Cholecalciferol (Vitamin D3) [Vitamin D3 -] 400 unit PO DAILY 04/15/16 Famotidine/Ca Carb/Mag Hydrox [Pepcid Complete Tablet Chew] 1 each PO DAILY 02/19 Pantoprazole Sodium 40 mg PO DAILY 04/15/16 Family Disease History - Family Disease History Family Disease History: Other: Father (Parkinsons), Mother (cirrhosis), Brother (bladder cancer) Review of Systems - Review of Systems Constitutional: denies: Chills, Fever Cardiovascular: denies: Chest Pain, Palpitations, Shortness of Breath Respiratory: denies: Cough, Hemoptysis, Orthopnea, SOB, SOB on Exertion, Wheezing Gastrointestinal: denies: No Symptoms, Abdominal Pain, Constipation, Diarrhea, Dysphagia, Melena, Nausea, Rectal Bleeding, Vomiting Genitourinary: denies: Dysuria Musculoskeletal: denies: Joint Pain Neurological: denies: Dizziness, Headache, Seizure, Syncope Vital Signs: Vital Signs Temperature 98.1 F 04/18/16 14:28 Pulse Rate 65 04/18/16 14:28 Respiratory Rate 16 04/18/16 09:33 Blood Pressure 140/67 04/18/16 14:28 O2 Sat by Pulse Oximetry (%) 97 04/17/16 20:06 Neck: Yes: Supple Respiratory: Yes: CTA Bilaterally Gastrointestinal: Yes: Normal Bowel Sounds, Soft. No: Tenderness Cardiovascular: Yes: Regular Rate and Rhythm JVD: No Carotid Bruit: No PMI: Non-Displaced Heart Sounds: Yes: S1, S2. No: Gallop Edema: No - Other Data Labs, Other Data: CBC, BMP 04/18/16 07:00 04/18/16 07:00 INR, PTT INR 1.16 (0.82-1.09) H 04/16/16 07:15 Sinus rhythm with anterolateral ST-T wave abnormality Imaging - Results Chest X-ray: Report Reviewed (Unremarkable) X-ray: Report Reviewed (Knee Xray show right patella fracture) Cat Scan: Report Reviewed (facial CT - nasal bone fracture) EKG: Report Reviewed Problem List - Problems (1) Nasal bone fracture Code(s): S02.2XXA - FRACTURE OF NASAL BONES, INIT ENCNTR FOR CLOSED FRACTURE (2) Right patella fracture Code(s): S82.001A - UNSP FRACTURE OF RIGHT PATELLA, INIT FOR CLOS FX Qualifiers: Encounter type: initial encounter Fracture type: closed Fracture morphology: unspecified fracture morphology Fracture alignment: displaced Qualified Code(s): S82.001A - Unspecified fracture of right patella, initial encounter for closed fracture (3) GERD (gastroesophageal reflux disease) Code(s): K21.9 - GASTRO-ESOPHAGEAL REFLUX DISEASE WITHOUT ESOPHAGITIS Qualifiers: Esophagitis presence: without esophagitis Qualified Code(s): K21.9 - Gastro-esophageal reflux disease without esophagitis (4) Hypercholesteremia Code(s): E78.0 - PURE HYPERCHOLESTEROLEMIA * DO NOT USE * (5) Hypertension Code(s): I10 - ESSENTIAL (PRIMARY) HYPERTENSION Qualifiers: Hypertension type: essential hypertension Qualified Code(s): I10 - Essential (primary) hypertension (6) Hypothyroid Code(s): E03.9 - HYPOTHYROIDISM, UNSPECIFIED Qualifiers: Hypothyroidism type: unspecified Qualified Code(s): E03.9 - Hypothyroidism, unspecified (7) Pre-operative cardiovascular examination Code(s): Z01.810 - ENCOUNTER FOR PREPROCEDURAL CARDIOVASCULAR EXAMINATION Assessment/Plan 1. Patella fracture secondary to mechanical fall, no LOC 2. History of right posterior cerebral artery stroke 3. MVP 4. HTN/HCVD 5. Hyperlipidemia 6. Hypothyroidism 7. History of GERD/esophageal spasm PLAN: 1. There appears to be no absolute contraindication in proceeding with knee/ patella surgery in view of absence of ischemic symptoms, decompensated congestive heart failure or malignant arrhythmias. Post operative cardiac enzymes and ECG is recommended 2. Continue cardiac medication including Lisinopril and Metoprolol Tartrate 3. Aggrenox has been held 4. Continue Zantac and DVT prophylaxis Further plans are to follow Shakir Cheney MD
[2016-04-18] MEDS: RANITIDINE HCL 150 MG TABLET (FP) PO SCH (21:49)
[2016-04-18] MEDS: ATORVASTATIN CA 10 MG TABLET (FP) PO SCH (21:49)
[2016-04-19] MEDS: SODIUM CHLORIDE 1,000 ML IV SCH ×2 (05:56→13:47)
[2016-04-19] MEDS: LEVOTHYROXINE NA 100 MCG TABLET (FP) PO SCH (06:40)
[2016-04-19] MEDS: METOPROLOL TARTRATE 25 MG TABLET (FP) PO SCH ×2 (07:50→09:47)
[2016-04-19] MEDS: LISINOPRIL 10 MG TABLET (FP) PO SCH ×2 (07:50→09:47)
[2016-04-19 08:47] LABS: BASOPHIL 0.6 % (0-2.0); EOSINOPHIL 1.4 % (0-4.5); MCH 31.5 pg (25.7-33.7); MCHC 34.1 g/dl (32.0-36.0); MEAN CELL VOLUME 92.4 fl (80-96); MEAN PLT VOLUME 8.7 fl (7.5-11.1); NEUTROPHILS 78.6 % (42.8-82.8); PLATELET COUNT 208 K/MM3 (134-434); RDW 14.2 % (11.6-15.6); WHITE BLOOD COUNT 9.1 K/mm3 (4.0-10.0)
[2016-04-19 08:57] LABS: CALCIUM 8.3 mg/dL (8.5-10.1); CREATININE 0.6 mg/dL (0.55-1.02); MAGNESIUM 2.1 mg/dL (1.8-2.4); PHOSPHOROUS 2.8 mg/dL (2.5-4.9)
[2016-04-19] MEDS ORDERED: PROPOFOL 20 ML ONE (09:20)
[2016-04-19] MEDS ORDERED: ROCURONIUM BROMIDE 50 MG/5 ML VIAL ONE (09:20)
[2016-04-19] MEDS ORDERED: ceFAZolin SODIUM 1 GM VIAL ONE (09:41)
[2016-04-19] MEDS ORDERED: ceFAZolin SODIUM 1 GM VIAL IVPB ONE (09:42)
[2016-04-19] MEDS: SULFAMETHOXAZOLE/TRIMETHOPRIM 800MG/160MG D.S. TABLET PO SCH ×2 (09:47→21:52)
[2016-04-19] MEDS: BACITRACIN 30 GM TUBE TOPICAL OINTMENT TP SCH ×2 (09:47→21:52)
[2016-04-19] MEDS: CHOLECALCIFEROL (VITAMIN D3) 400 UNIT TABLET (FP) PO SCH (09:48)
[2016-04-19] MEDS: PANTOPRAZOLE 40 MG TABLET (FP) PO SCH (09:48)
[2016-04-19] MEDS ORDERED: DEXAMETHASONE SOD PHOSPHATE 4 MG/1 ML VIAL ONE (09:58)
[2016-04-19] MEDS ORDERED: NEOSTIGMINE METHYLSULFATE 0.5 MG/ML - 10 ML MDV ONE (10:02)
[2016-04-19] MEDS ORDERED: GLYCOPYRROLATE 0.2 MG/1 ML VIAL ONE (10:06)
--- NOTE | 2016-04-19 10:11 | OP ---
Operative Note - Note: Operative Date: 04/19/16 ([facility]) Pre-Operative Diagnosis: right displaced patella fx Operation: right patella orif Post-Operative Diagnosis: Same as Pre-op Surgeon: Price Jaime Rn Field: Lalo Page Anesthesiologist/PATIENT SAFETY MANAGER: Selena Medellin Anesthesia: General Estimated Blood Loss (mls): 5 (tourniquet) Operative Report Dictated: Yes
[2016-04-19] MEDS ORDERED: ONDANSETRON 4 MG/2 ML VIAL IVPUSH PRN (10:37)
[2016-04-19] MEDS: morphine CARPU-JECT 2 MG/1 ML DISP.SYRIN IVPUSH PRN ×5 (10:45→12:45)
[2016-04-19] MEDS ORDERED: NITROGLYCERIN SUBLINGUAL 1/150 0.4 MG TAB SL PRN (10:58)
[2016-04-19] MEDS ORDERED: MAG HYDROX/AL HYDROX/SIMETH 30 ML UNIT-DOSE CUP PO PRN (10:58)
[2016-04-19] MEDS ORDERED: morphine CARPU-JECT 4 MG/1 ML DISP.SYRIN ONE (11:08)
[2016-04-19] MEDS ORDERED: morphine CARPU-JECT 2 MG/1 ML DISP.SYRIN ONE (12:58)
[2016-04-19] MEDS: oxyCODONE HCL 5 MG TABLET PO PRN ×2 (13:47→18:37)
--- NOTE | 2016-04-19 14:41 | PN ---
Progress Note, Physician Chief Complaint: Ms Mei says she has pain in her right knee. no cp, sob, n/v. - Current Medication List Current Medications: Active Medications Acetaminophen (Tylenol -) 650 mg PO Q6H PRN PRN Reason: PAIN SCALE 6-10 Al Hydroxide/Mg Hydroxide (Mylanta Oral Suspension -) 30 ml PO Q6H PRN PRN Reason: DYSPEPSIA Atorvastatin Calcium (Lipitor -) 10 mg PO HS [facility] Bacitracin (Bacitracin -) 1 applic TP BID [facility] Cholecalciferol (Vitamin D3 -) 400 unit PO DAILY [facility] Lactated Ringer's (Lactated Ringers Solution) 1,000 mls @ 125 mls/hr IV [facility] Sodium Chloride (Normal Saline -) 1,000 mls @ 75 mls/hr IV [facility]IR [facility] Last Admin: 04/19/16 13:47 Dose: 75 mls/hr Cefazolin Sodium (Ancef 1 Gm Premixed Ivpb -) 50 mls @ 100 mls/hr IVPB Q8H [facility] Stop: 04/20/16 03:29 Levothyroxine Sodium (Synthroid -) 100 mcg PO DAILY@0700 [facility] Lisinopril (Prinivil) 10 mg PO DAILY [facility] Metoprolol Tartrate (Lopressor -) 25 mg PO DAILY [facility] Morphine Sulfate (Morphine Injection -) 2 mg IVPUSH [id number] PRN PRN Reason: PAIN Stop: 04/22/16 10:38 Last Admin: 04/19/16 12:45 Dose: 2 mg Nitroglycerin (Nitrostat -) 0.4 mg SL PRN PRN Ondansetron HCl (Zofran Injection) 4 mg IVPUSH Q6H PRN PRN Reason: NAUSEA AND/OR VOMITING Stop: 04/19/16 16:38 Oxycodone HCl (Roxicodone -) 5 mg PO Q4H PRN PRN Reason: MILD PAIN Stop: 04/20/16 10:36 Last Admin: 04/19/16 13:47 Dose: 5 mg Pantoprazole Sodium (Protonix -) 40 mg PO DAILY [facility] Ranitidine HCl (Zantac -) 150 mg PO HS [facility] Trimethoprim/Sulfamethoxazole (Bactrim Ds -) 1 each PO BID [facility] - Objective Vital Signs: Vital Signs Temperature 98.3 F 04/19/16 13:53 Pulse Rate 60 04/19/16 13:53 Respiratory Rate 20 04/19/16 13:53 Blood Pressure 150/67 04/19/16 13:53 O2 Sat by Pulse Oximetry (%) 93 L 04/19/16 13:53 Constitutional: Yes: Well Nourished, No Distress, Calm Cardiovascular: Yes: Regular Rate and Rhythm. No: Gallop, Murmur, Rub Respiratory: Yes: Regular, CTA Bilaterally. No: Rales, Rhonchi, Wheezes Gastrointestinal: Yes: Normal Bowel Sounds, Soft. No: Distention, Tenderness Extremities: Yes: Other (R knee immobilized) Edema: No Labs: CBC, BMP 04/19/16 07:00 04/19/16 07:00 INR, PTT INR 1.16 (0.82-1.09) H 04/16/16 07:15 Problem List - Problems (1) Right patella fracture Code(s): S82.001A - UNSP FRACTURE OF RIGHT PATELLA, INIT FOR CLOS FX Qualifiers: Encounter type: initial encounter Fracture type: closed Fracture morphology: unspecified fracture morphology Fracture alignment: displaced Qualified Code(s): S82.001A - Unspecified fracture of right patella, initial encounter for closed fracture (2) GERD (gastroesophageal reflux disease) Code(s): K21.9 - GASTRO-ESOPHAGEAL REFLUX DISEASE WITHOUT ESOPHAGITIS Qualifiers: Esophagitis presence: without esophagitis Qualified Code(s): K21.9 - Gastro-esophageal reflux disease without esophagitis (3) Nasal bone fracture Code(s): S02.2XXA - FRACTURE OF NASAL BONES, INIT ENCNTR FOR CLOSED FRACTURE (4) Hypercholesteremia Code(s): E78.0 - PURE HYPERCHOLESTEROLEMIA * DO NOT USE * (5) Hypertension Code(s): I10 - ESSENTIAL (PRIMARY) HYPERTENSION Qualifiers: Hypertension type: essential hypertension Qualified Code(s): I10 - Essential (primary) hypertension (6) Hypothyroid Code(s): E03.9 - HYPOTHYROIDISM, UNSPECIFIED Qualifiers: Hypothyroidism type: unspecified Qualified Code(s): E03.9 - Hypothyroidism, unspecified Assessment/Plan (1) Right patella fracture Assessment/Plan: -s/p surgery -continue pain control -will need SNF placement Code(s): S82.001A - UNSP FRACTURE OF RIGHT PATELLA, INIT FOR CLOS FX Qualifiers: Encounter type: initial encounter Fracture type: closed Fracture morphology: unspecified fracture morphology Fracture alignment: displaced Qualified Code(s): S82.001A - Unspecified fracture of right patella, initial encounter for closed fracture (2) GERD (gastroesophageal reflux disease) Assessment/Plan: -continue ranitidine -resolved Code(s): K21.9 - GASTRO-ESOPHAGEAL REFLUX DISEASE WITHOUT ESOPHAGITIS (3) Nasal bone fracture Assessment/Plan: -continue bactrim and bacitracin -patient says it is not painful Code(s): S02.2XXA - FRACTURE OF NASAL BONES, INIT ENCNTR FOR CLOSED FRACTURE (4) Hypercholesteremia Assessment/Plan: -continue lipitor Code(s): E78.0 - PURE HYPERCHOLESTEROLEMIA * DO NOT USE * (5) Hypertension Assessment/Plan: -continue toprol and lisinopril -continue to monitor Code(s): I10 - ESSENTIAL (PRIMARY) HYPERTENSION (6) Hypothyroid Assessment/Plan: -continue synthroid Code(s): E03.9 - HYPOTHYROIDISM, UNSPECIFIED
[2016-04-19] MEDS ORDERED: PT OWN MED DRAWER 7, Y5N ONE ×2 (15:05→18:27)
--- NOTE | 2016-04-19 15:22 | OP ---
DATE OF OPERATION: 04/15/2016 PROCEDURE: A 4 cm complex nasal laceration washout and repair with management without manipulation of nasal bone fracture, minimally displaced. ATTENDING SURGEON: Eugene Tuttle MD Patient is seen at the request of referring physician, Dr. Domenic Cha. HISTORY: This is an 89-year-old female who suffered a fall onto the nose, suffering a laceration overlying a minimally displaced nasal bone fracture. She was brought in to the [facility] Emergency Room for evaluation and treatment. PAST MEDICAL AND SURGICAL HISTORY: Noncontributory. REVIEW OF SYSTEMS: Negative for any bleeding, coagulopathy, recent change in mental status shortness of breath. The patient and the referring physician are counseled on risks, benefits, alternatives to washout and repair of laceration, and management of the fracture, understood and agreed to proceed with the procedure as follows: The nose was palpated. There is no palpable bony step-off. The x-ray is evaluated, the facial bones CT, which shows bilateral minimally displaced nasal bone fractures. The wound is the copiously irrigated with normal saline. The nasalis muscles approximated after debridement of the wound with a series of interrupted buried 5-0 Vicryl suture. The skin is then repaired with a series of interrupted 6-0 nylon suture. There is a skin tear component of the laceration on the right border of the wound which is tacked in place with a series of interrupted 6-0 nylon suture. The entire area is dressed with bacitracin. The patient and family are counseled on the recommendation for observation of the nasal bone fracture without any additional surgery. They understand, agree to proceed. Wound care instructions given. Patient is to follow up with Dr. Tuttle in 5 days. EUGENE TUTTLE M.D. [id number] cc: Domenic Cha MD
[2016-04-19] MEDS ORDERED: CEFAZOLIN 1 GM/D5W 50 ML IVPB SCH (17:00)
[2016-04-19] MEDS ORDERED: CEFAZOLIN 1 GM/D5W 50 ML IVPB ONE (17:00)
[2016-04-19] MEDS: CEFAZOLIN 1 GM/D5W 50 ML IVPB SCH (18:30)
[2016-04-19] MEDS: ACETAMINOPHEN 325 MG TABLET (FP) PO PRN (18:36)
[2016-04-19] MEDS: ATORVASTATIN CA 10 MG TABLET (FP) PO SCH (21:52)
[2016-04-19] MEDS: RANITIDINE HCL 150 MG TABLET (FP) PO SCH (21:52)
[2016-04-20] MEDS: oxyCODONE HCL 5 MG TABLET PO PRN ×2 (00:54→06:30)
[2016-04-20] MEDS: CEFAZOLIN 1 GM/D5W 50 ML IVPB SCH (02:56)
[2016-04-20] MEDS: LEVOTHYROXINE NA 100 MCG TABLET (FP) PO SCH (06:30)
[2016-04-20 08:33] LABS: BASOPHIL 0.5 % (0-2.0); EOSINOPHIL 0.5 % (0-4.5); MCH 31.3 pg (25.7-33.7); MCHC 33.9 g/dl (32.0-36.0); MEAN CELL VOLUME 92.3 fl (80-96); NEUTROPHILS 82.8 % (42.8-82.8); PLATELET COUNT 256 K/MM3 (134-434); RDW 14.2 % (11.6-15.6); WHITE BLOOD COUNT 13.9 K/mm3 (4.0-10.0)
[2016-04-20 09:08] LABS: CALCIUM 8.2 mg/dL (8.5-10.1); CREATININE 0.9 mg/dL (0.55-1.02); MAGNESIUM 2.3 mg/dL (1.8-2.4); PHOSPHOROUS 3.4 mg/dL (2.5-4.9)
--- NOTE | 2016-04-20 09:12 | OP ---
DATE OF OPERATION: 04/19/2016 PREOPERATIVE DIAGNOSIS: Displaced right patellar fracture. POSTOPERATIVE DIAGNOSIS: Displaced right patellar fracture. PROCEDURE PERFORMED: Open reduction and internal fixation of right patellar fracture. SURGICAL ATTENDING: Price Jaime MD [employer] OPERATOR: NADEEM Willson ANESTHESIA: General with endotracheal intubation. POSITION: Supine. CLOSURE: 0.62 K-wires with cerclage wire, 2-0 for paratenon and subcutaneous, 3-0 Monocryl subcuticular with skin glue. ESTIMATED BLOOD LOSS: Negligible. TOURNIQUET TIME: 32 minutes. COMPLICATIONS: None. CONDITION: To the recovery room in stable condition. DESCRIPTION OF PROCEDURE: The patient was taken to the operating room on April 19, 2016. General anesthesia was administered by the anesthesiologist. IV Kefzol administered prophylactically prior to the case. The right lower extremity was prepped and draped in the usual sterile fashion, with a well-padded pneumatic tourniquet placed on the right proximal thigh. The limb was exsanguinated with an Esmarch bandage, and the tourniquet was inflated to 275 mmHg. An 8-10 cm longitudinal midline incision was incised over the patella. Hemostasis was achieved using Bovie cautery. Sharp dissection was carried down to the extensor mechanism. The patellar fracture was encouraged. There were 2 large pieces, both proximally and distally, which were easily reducible and held with a tenaculum clamp. Two guidewires were drilled in parallel fashion from the inferior pole superiorly, ensuring good fixation. A cerclage wire was passed underneath the tendon on the patella side and the quadriceps side, and looped in a [id number] position, and there was tension in extension. The wires were cut short and bent over. The knee was taken through a range of motion and found to go from full extension to over 90 degrees of flexion with good maintenance of the repair. The knee was irrigated with copious amounts of irrigation. The paratenon was closed using 2-0 Vicryl to cover the hardware as best as possible, 2-0 Vicryl subcutaneous and 3-0 Monocryl subcuticular for the skin with skin glue. A sterile pressure dressing was placed over the knee, followed by a knee immobilizer. The patient was awakened from anesthesia and transferred to the recovery room in stable condition, without complication. Estimated blood loss was negligible. Francesco [id number]
--- NOTE | 2016-04-20 09:18 | PN ---
Progress Note, Physician Chief Complaint: s/p R ORIF patella, post op day one History of Present Illness: under general anesthesia - Current Medication List Current Medications: Active Medications Acetaminophen (Tylenol -) 650 mg PO Q6H PRN PRN Reason: PAIN SCALE 6-10 Last Admin: 04/19/16 18:36 Dose: 650 mg Al Hydroxide/Mg Hydroxide (Mylanta Oral Suspension -) 30 ml PO Q6H PRN PRN Reason: DYSPEPSIA Atorvastatin Calcium (Lipitor -) 10 mg PO HS [facility] Last Admin: 04/19/16 21:52 Dose: 10 mg Bacitracin (Bacitracin -) 1 applic TP BID [facility] Last Admin: 04/19/16 21:52 Dose: 1 applic Cholecalciferol (Vitamin D3 -) 400 unit PO DAILY [facility] Lactated Ringer's (Lactated Ringers Solution) 1,000 mls @ 125 mls/hr IV [facility] Sodium Chloride (Normal Saline -) 1,000 mls @ 75 mls/hr IV [facility]IR [facility] Last Admin: 04/19/16 13:47 Dose: 75 mls/hr Levothyroxine Sodium (Synthroid -) 100 mcg PO DAILY@0700 [facility] Last Admin: 04/20/16 06:30 Dose: 100 mcg Lisinopril (Prinivil) 10 mg PO DAILY [facility] Metoprolol Tartrate (Lopressor -) 25 mg PO DAILY [facility] Morphine Sulfate (Morphine Injection -) 2 mg IVPUSH [id number] PRN PRN Reason: PAIN Stop: 04/22/16 10:38 Last Admin: 04/19/16 12:45 Dose: 2 mg Nitroglycerin (Nitrostat -) 0.4 mg SL PRN PRN Oxycodone HCl (Roxicodone -) 5 mg PO Q4H PRN PRN Reason: MILD PAIN Stop: 04/20/16 10:36 Last Admin: 04/20/16 06:30 Dose: 5 mg Pantoprazole Sodium (Protonix -) 40 mg PO DAILY [facility] Ranitidine HCl (Zantac -) 150 mg PO HS [facility] Last Admin: 04/19/16 21:52 Dose: 150 mg Trimethoprim/Sulfamethoxazole (Bactrim Ds -) 1 each PO BID [facility] Last Admin: 04/19/16 21:52 Dose: 1 each - Objective Vital Signs: Vital Signs Temperature 98.1 F 04/20/16 06:00 Pulse Rate 83 04/20/16 06:00 Respiratory Rate 20 04/20/16 06:00 Blood Pressure 136/68 04/20/16 06:00 O2 Sat by Pulse Oximetry (%) 96 04/19/16 21:00 Constitutional: Yes: Well Nourished Cardiovascular: Yes: WNL Respiratory: Yes: WNL Gastrointestinal: Yes: WNL Labs: CBC, BMP 04/20/16 07:10 04/20/16 07:10 INR, PTT INR 1.16 (0.82-1.09) H 04/16/16 07:15 Assessment/Plan Patient complaining of nausea but not changed from baseline nausea, pain from surgical site not controlled, advised to ask for more oral analgesics and IV if necessary, no other adverse effects from anesthetic, dept of anesthesia will sign off care, please consult our department if unable to control the patient's pain.
--- NOTE | 2016-04-20 09:38 | PN ---
Progress Note (short form) - Note Progress Note: Pt seen and examined, s/p right patella fracture ORIF. Doing well, min c/o pain. RLE NVI Good ROM right ankle, foot Imp Doing well. Rec P.T., can PWB right leg in knee immobilizer DC planning, can DC from an ortho pov F/u with Dr Jaime in 7-10 days
[2016-04-20] MEDS: SULFAMETHOXAZOLE/TRIMETHOPRIM 800MG/160MG D.S. TABLET PO SCH (10:45)
[2016-04-20] MEDS: LISINOPRIL 10 MG TABLET (FP) PO SCH (10:45)
[2016-04-20] MEDS: METOPROLOL TARTRATE 25 MG TABLET (FP) PO SCH (10:46)
[2016-04-20] MEDS: PANTOPRAZOLE 40 MG TABLET (FP) PO SCH (10:46)
[2016-04-20] MEDS: CHOLECALCIFEROL (VITAMIN D3) 400 UNIT TABLET (FP) PO SCH (10:46)
[2016-04-20] MEDS: LACTATED RINGERS SOLUTION 1,000 ML IV SCH (10:47)
[2016-04-20] MEDS: BACITRACIN 30 GM TUBE TOPICAL OINTMENT TP SCH ×2 (10:47→21:33)
[2016-04-20] MEDS: SODIUM CHLORIDE 1,000 ML IV SCH ×2 (10:59→17:56)
[2016-04-20] MEDS: ACETAMINOPHEN 325 MG TABLET (FP) PO PRN ×2 (11:08→21:32)
--- NOTE | 2016-04-20 14:56 | PN ---
Progress Note, Physician Chief Complaint: Post op day #1 Complains of right knee pain History of Present Illness: Patient was seen and examined. Awake and alert. Chart was reviewed Denies chest pain, SOB or palpitations. Complains of post op knee pain - Current Medication List Current Medications: Active Medications Acetaminophen (Tylenol -) 650 mg PO Q6H PRN PRN Reason: PAIN SCALE 6-10 Last Admin: 04/20/16 11:08 Dose: 650 mg Al Hydroxide/Mg Hydroxide (Mylanta Oral Suspension -) 30 ml PO Q6H PRN PRN Reason: DYSPEPSIA Atorvastatin Calcium (Lipitor -) 10 mg PO HS [facility] Last Admin: 04/19/16 21:52 Dose: 10 mg Bacitracin (Bacitracin -) 1 applic TP BID [facility] Last Admin: 04/20/16 10:47 Dose: 1 applic Cholecalciferol (Vitamin D3 -) 400 unit PO DAILY [facility] Last Admin: 04/20/16 10:46 Dose: 400 unit Lactated Ringer's (Lactated Ringers Solution) 1,000 mls @ 125 mls/hr IV ASDIR [facility] Last Admin: 04/20/16 10:47 Dose: Not Given Sodium Chloride (Normal Saline -) 1,000 mls @ 75 mls/hr IV ASDIR [facility] Last Admin: 04/20/16 10:59 Dose: Not Given Levothyroxine Sodium (Synthroid -) 100 mcg PO DAILY@0700 [facility] Last Admin: 04/20/16 06:30 Dose: 100 mcg Lisinopril (Prinivil) 10 mg PO DAILY [facility] Last Admin: 04/20/16 10:45 Dose: 10 mg Metoprolol Tartrate (Lopressor -) 25 mg PO DAILY [facility] Last Admin: 04/20/16 10:46 Dose: 25 mg Morphine Sulfate (Morphine Injection -) 2 mg IVPUSH [id number] PRN PRN Reason: PAIN Stop: 04/22/16 10:38 Last Admin: 04/19/16 12:45 Dose: 2 mg Nitroglycerin (Nitrostat -) 0.4 mg SL PRN PRN Oxycodone HCl (Roxicodone -) 5 mg PO Q4H PRN PRN Reason: PAIN Pantoprazole Sodium (Protonix -) 40 mg PO DAILY [facility] Last Admin: 04/20/16 10:46 Dose: 40 mg Ranitidine HCl (Zantac -) 150 mg PO HS [facility] Last Admin: 04/19/16 21:52 Dose: 150 mg - Objective Vital Signs: Vital Signs Temperature 99.7 F H 04/20/16 14:22 Pulse Rate 73 04/20/16 14:22 Respiratory Rate 16 04/20/16 09:26 Blood Pressure 152/72 04/20/16 14:22 O2 Sat by Pulse Oximetry (%) 95 04/20/16 11:00 Neck: Yes: Supple Cardiovascular: Yes: Regular Rate and Rhythm, S1, S2 Respiratory: Yes: CTA Bilaterally Gastrointestinal: Yes: Normal Bowel Sounds, Soft. No: Tenderness Edema: No Labs: CBC, BMP 04/20/16 07:10 04/20/16 07:10 Problem List - Problems (1) Nasal bone fracture Code(s): S02.2XXA - FRACTURE OF NASAL BONES, INIT ENCNTR FOR CLOSED FRACTURE (2) Right patella fracture Code(s): S82.001A - UNSP FRACTURE OF RIGHT PATELLA, INIT FOR CLOS FX Qualifiers: Encounter type: initial encounter Fracture type: closed Fracture morphology: unspecified fracture morphology Fracture alignment: displaced Qualified Code(s): S82.001A - Unspecified fracture of right patella, initial encounter for closed fracture (3) GERD (gastroesophageal reflux disease) Code(s): K21.9 - GASTRO-ESOPHAGEAL REFLUX DISEASE WITHOUT ESOPHAGITIS Qualifiers: Esophagitis presence: without esophagitis Qualified Code(s): K21.9 - Gastro-esophageal reflux disease without esophagitis (4) Hypercholesteremia Code(s): E78.0 - PURE HYPERCHOLESTEROLEMIA * DO NOT USE * (5) Hypertension Code(s): I10 - ESSENTIAL (PRIMARY) HYPERTENSION Qualifiers: Hypertension type: essential hypertension Qualified Code(s): I10 - Essential (primary) hypertension (6) Hypothyroid Code(s): E03.9 - HYPOTHYROIDISM, UNSPECIFIED Qualifiers: Hypothyroidism type: unspecified Qualified Code(s): E03.9 - Hypothyroidism, unspecified (7) Pre-operative cardiovascular examination Code(s): Z01.810 - ENCOUNTER FOR PREPROCEDURAL CARDIOVASCULAR EXAMINATION Assessment/Plan 1. 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 HTN/HCVD 5. Hyperlipidemia 6. Hypothyroidism 7. History of GERD/esophageal spasm PLAN: 1. Post op care 2. Continue cardiac medication including Lisinopril and Metoprolol Tartrate 3. Aggrenox is to be restarted when cleared by Orthopedics 4. Continue Zantac and DVT prophylaxis 5. Pain management and eventual PT and rehab Further plans are to follow Shakir Cheney MD
--- NOTE | 2016-04-20 16:35 | PN ---
Progress Note, Physician Chief Complaint: Ms Mei complains of some nausea. No cp, sob, n/v - Current Medication List Current Medications: Active Medications Acetaminophen (Tylenol -) 650 mg PO Q6H PRN PRN Reason: PAIN SCALE 6-10 Last Admin: 04/20/16 11:08 Dose: 650 mg Al Hydroxide/Mg Hydroxide (Mylanta Oral Suspension -) 30 ml PO Q6H PRN PRN Reason: DYSPEPSIA Atorvastatin Calcium (Lipitor -) 10 mg PO HS [facility] Last Admin: 04/19/16 21:52 Dose: 10 mg Bacitracin (Bacitracin -) 1 applic TP BID [facility] Last Admin: 04/20/16 10:47 Dose: 1 applic Cholecalciferol (Vitamin D3 -) 400 unit PO DAILY [facility] Last Admin: 04/20/16 10:46 Dose: 400 unit Lactated Ringer's (Lactated Ringers Solution) 1,000 mls @ 125 mls/hr IV ASDIR [facility] Last Admin: 04/20/16 10:47 Dose: Not Given Sodium Chloride (Normal Saline -) 1,000 mls @ 75 mls/hr IV ASDIR [facility] Last Admin: 04/20/16 10:59 Dose: Not Given Levothyroxine Sodium (Synthroid -) 100 mcg PO DAILY@0700 [facility] Last Admin: 04/20/16 06:30 Dose: 100 mcg Lisinopril (Prinivil) 10 mg PO DAILY [facility] Last Admin: 04/20/16 10:45 Dose: 10 mg Metoprolol Tartrate (Lopressor -) 25 mg PO DAILY [facility] Last Admin: 04/20/16 10:46 Dose: 25 mg Morphine Sulfate (Morphine Injection -) 2 mg IVPUSH [id number] PRN PRN Reason: PAIN Stop: 04/22/16 10:38 Last Admin: 04/19/16 12:45 Dose: 2 mg Nitroglycerin (Nitrostat -) 0.4 mg SL PRN PRN Oxycodone HCl (Roxicodone -) 5 mg PO Q4H PRN PRN Reason: PAIN Pantoprazole Sodium (Protonix -) 40 mg PO DAILY [facility] Last Admin: 04/20/16 10:46 Dose: 40 mg Ranitidine HCl (Zantac -) 150 mg PO HS [facility] Last Admin: 04/19/16 21:52 Dose: 150 mg - Objective Vital Signs: Vital Signs Temperature 99.7 F H 04/20/16 14:22 Pulse Rate 73 04/20/16 14:22 Respiratory Rate 16 04/20/16 09:26 Blood Pressure 152/72 04/20/16 14:22 O2 Sat by Pulse Oximetry (%) 95 04/20/16 11:00 Constitutional: Yes: Well Nourished, No Distress, Calm Cardiovascular: Yes: Regular Rate and Rhythm. No: Gallop, Murmur, Rub Respiratory: Yes: Regular, CTA Bilaterally. No: Rales, Rhonchi, Wheezes Gastrointestinal: Yes: Normal Bowel Sounds, Soft. No: Distention, Tenderness Extremities: Yes: WNL Edema: No Labs: CBC, BMP 04/20/16 07:10 04/20/16 07:10 INR, PTT INR 1.16 (0.82-1.09) H 04/16/16 07:15 Problem List - Problems (1) Right patella fracture Code(s): S82.001A - UNSP FRACTURE OF RIGHT PATELLA, INIT FOR CLOS FX Qualifiers: Encounter type: initial encounter Fracture type: closed Fracture morphology: unspecified fracture morphology Fracture alignment: displaced Qualified Code(s): S82.001A - Unspecified fracture of right patella, initial encounter for closed fracture (2) GERD (gastroesophageal reflux disease) Code(s): K21.9 - GASTRO-ESOPHAGEAL REFLUX DISEASE WITHOUT ESOPHAGITIS Qualifiers: Esophagitis presence: without esophagitis Qualified Code(s): K21.9 - Gastro-esophageal reflux disease without esophagitis (3) Nasal bone fracture Code(s): S02.2XXA - FRACTURE OF NASAL BONES, INIT ENCNTR FOR CLOSED FRACTURE (4) Hypercholesteremia Code(s): E78.0 - PURE HYPERCHOLESTEROLEMIA * DO NOT USE * (5) Hypertension Code(s): I10 - ESSENTIAL (PRIMARY) HYPERTENSION Qualifiers: Hypertension type: essential hypertension Qualified Code(s): I10 - Essential (primary) hypertension (6) Hypothyroid Code(s): E03.9 - HYPOTHYROIDISM, UNSPECIFIED Qualifiers: Hypothyroidism type: unspecified Qualified Code(s): E03.9 - Hypothyroidism, unspecified Assessment/Plan (1) Right patella fracture Assessment/Plan: -s/p surgery -continue pain control -will need SNF placement, plan for tomorrow Code(s): S82.001A - UNSP FRACTURE OF RIGHT PATELLA, INIT FOR CLOS FX Qualifiers: Encounter type: initial encounter Fracture type: closed Fracture morphology: unspecified fracture morphology Fracture alignment: displaced Qualified Code(s): S82.001A - Unspecified fracture of right patella, initial encounter for closed fracture (2) GERD (gastroesophageal reflux disease) Assessment/Plan: -continue ranitidine -resolved Code(s): K21.9 - GASTRO-ESOPHAGEAL REFLUX DISEASE WITHOUT ESOPHAGITIS (3) Nasal bone fracture Assessment/Plan: -will stop bactrim, continue bacitracin -patient says it is not painful Code(s): S02.2XXA - FRACTURE OF NASAL BONES, INIT ENCNTR FOR CLOSED FRACTURE (4) Hypercholesteremia Assessment/Plan: -continue lipitor Code(s): E78.0 - PURE HYPERCHOLESTEROLEMIA * DO NOT USE * (5) Hypertension Assessment/Plan: -continue toprol and lisinopril -continue to monitor Code(s): I10 - ESSENTIAL (PRIMARY) HYPERTENSION (6) Hypothyroid Assessment/Plan: -continue synthroid Code(s): E03.9 - HYPOTHYROIDISM, UNSPECIFIED
[2016-04-20] MEDS: RANITIDINE HCL 150 MG TABLET (FP) PO SCH (21:32)
[2016-04-20] MEDS: ATORVASTATIN CA 10 MG TABLET (FP) PO SCH (21:32)
[2016-04-20] MEDS: ASPIRIN/DIPYRIDAMOLE 25 MG/200 MG CAPSULE (FP) PO SCH (21:43)
[2016-04-21] MEDS: SODIUM CHLORIDE 1,000 ML IV SCH ×2 (06:03→13:34)
[2016-04-21] MEDS: LEVOTHYROXINE NA 100 MCG TABLET (FP) PO SCH (06:04)
[2016-04-21 08:21] LABS: BASOPHIL 0.3 % (0-2.0); EOSINOPHIL 0.2 % (0-4.5); MCH 30.5 pg (25.7-33.7); MCHC 33.1 g/dl (32.0-36.0); MEAN CELL VOLUME 92.4 fl (80-96); NEUTROPHILS 87.1 % (42.8-82.8); PLATELET COUNT 260 K/MM3 (134-434); RDW 14.3 % (11.6-15.6); WHITE BLOOD COUNT 14.3 K/mm3 (4.0-10.0)
[2016-04-21 08:56] LABS: CALCIUM 8.3 mg/dL (8.5-10.1); CREATININE 1.1 mg/dL (0.55-1.02); MAGNESIUM 2.6 mg/dL (1.8-2.4); PHOSPHOROUS 3.4 mg/dL (2.5-4.9)
[2016-04-21] MEDS: PANTOPRAZOLE 40 MG TABLET (FP) PO SCH (10:18)
[2016-04-21] MEDS: ASPIRIN/DIPYRIDAMOLE 25 MG/200 MG CAPSULE (FP) PO SCH ×2 (10:18→21:31)
[2016-04-21] MEDS: METOPROLOL TARTRATE 25 MG TABLET (FP) PO SCH (10:18)
[2016-04-21] MEDS: LISINOPRIL 10 MG TABLET (FP) PO SCH (10:18)
[2016-04-21] MEDS: CHOLECALCIFEROL (VITAMIN D3) 400 UNIT TABLET (FP) PO SCH (10:18)
[2016-04-21] MEDS: BACITRACIN 30 GM TUBE TOPICAL OINTMENT TP SCH ×2 (10:18→21:34)
--- NOTE | 2016-04-21 12:05 | PN ---
Progress Note, Physician History of Present Illness: Right post-op knee discomfort with nausea. Denies chest pain or dyspnea. - Current Medication List Current Medications: Active Medications Acetaminophen (Tylenol -) 650 mg PO Q6H PRN PRN Reason: PAIN SCALE 6-10 Last Admin: 04/20/16 21:32 Dose: 650 mg Al Hydroxide/Mg Hydroxide (Mylanta Oral Suspension -) 30 ml PO Q6H PRN PRN Reason: DYSPEPSIA Atorvastatin Calcium (Lipitor -) 10 mg PO HS [facility] Last Admin: 04/20/16 21:32 Dose: 10 mg Bacitracin (Bacitracin -) 1 applic TP BID [facility] Last Admin: 04/21/16 10:18 Dose: 1 applic Cholecalciferol (Vitamin D3 -) 400 unit PO DAILY [facility] Last Admin: 04/21/16 10:18 Dose: 400 unit Dipyridamole/Aspirin (Aggrenox -) 1 combo PO BID [facility] Last Admin: 04/21/16 10:18 Dose: 1 combo Lactated Ringer's (Lactated Ringers Solution) 1,000 mls @ 125 mls/hr IV ASDIR [facility] Last Admin: 04/20/16 10:47 Dose: Not Given Sodium Chloride (Normal Saline -) 1,000 mls @ 75 mls/hr IV ASD[facility] Last Admin: 04/21/16 06:03 Dose: 75 mls/hr Levothyroxine Sodium (Synthroid -) 100 mcg PO DAILY@0700 [facility] Last Admin: 04/21/16 06:04 Dose: 100 mcg Lisinopril (Prinivil) 10 mg PO DAILY [facility] Last Admin: 04/21/16 10:18 Dose: 10 mg Metoprolol Tartrate (Lopressor -) 25 mg PO DAILY [facility] Last Admin: 04/21/16 10:18 Dose: 25 mg Morphine Sulfate (Morphine Injection -) 2 mg IVPUSH [id number] PRN PRN Reason: PAIN Stop: 04/22/16 10:38 Last Admin: 04/19/16 12:45 Dose: 2 mg Nitroglycerin (Nitrostat -) 0.4 mg SL PRN PRN Oxycodone HCl (Roxicodone -) 5 mg PO Q4H PRN PRN Reason: PAIN Pantoprazole Sodium (Protonix -) 40 mg PO DAILY [facility] Last Admin: 04/21/16 10:18 Dose: 40 mg Ranitidine HCl (Zantac -) 150 mg PO HS [facility] Last Admin: 04/20/16 21:32 Dose: 150 mg - Objective Vital Signs: Vital Signs Temperature 98.5 F 04/21/16 10:00 Pulse Rate 76 04/21/16 10:00 Respiratory Rate 20 04/21/16 10:00 Blood Pressure 150/73 04/21/16 10:00 O2 Sat by Pulse Oximetry (%) 96 04/20/16 21:00 Constitutional: Yes: No Distress, Calm Neck: Yes: Supple Cardiovascular: Yes: Regular Rate and Rhythm Respiratory: Yes: Regular, Diminished, On Nasal O2 Gastrointestinal: Yes: Normal Bowel Sounds, Soft Edema: No Wound/Incision: Yes: Dressing Dry and Intact Labs: CBC, BMP 04/21/16 06:30 04/21/16 06:30 INR, PTT INR 1.16 (0.82-1.09) H 04/16/16 07:15 Problem List - Problems (1) Right patella fracture Code(s): S82.001A - UNSP FRACTURE OF RIGHT PATELLA, INIT FOR CLOS FX Qualifiers: Encounter type: initial encounter Fracture type: closed Fracture morphology: unspecified fracture morphology Fracture alignment: displaced Qualified Code(s): S82.001A - Unspecified fracture of right patella, initial encounter for closed fracture (2) Hypercholesteremia Code(s): E78.0 - PURE HYPERCHOLESTEROLEMIA * DO NOT USE * (3) Hypertension Code(s): I10 - ESSENTIAL (PRIMARY) HYPERTENSION Qualifiers: Hypertension type: essential hypertension Qualified Code(s): I10 - Essential (primary) hypertension (4) Hypothyroid Code(s): E03.9 - HYPOTHYROIDISM, UNSPECIFIED Qualifiers: Hypothyroidism type: unspecified Qualified Code(s): E03.9 - Hypothyroidism, unspecified (5) History of stroke Code(s): Z86.73 - PRSNL HX OF TIA (TIA), AND CEREB INFRC W/O RESID DEFICITS Assessment/Plan 1. 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 HTN/HCVD 5. Hyperlipidemia 6. Hypothyroidism 7. History of GERD/esophageal spasm PLAN: 1. Routine post op care 2. Continue Lisinopril 10 qd, Lipitor 10 qhs and Metoprolol Tartrate 25 qd 3. Aggrenox bid restarted now that hemostasis achieved 4. Continue GI and DVT prophylaxis 5. Pain management and eventual PT and rehab
--- NOTE | 2016-04-21 12:44 | PN ---
Progress Note (short form) - Note Progress Note: AVSS COMFORTABLE BANDAGES DRY AND INTACT CALF SOFT AND NT NVI IMP: DOING WELL MORTHOPEDICALLY PLAN: OOB, PT, DC PLANNING
[2016-04-21] MEDS: LACTATED RINGERS SOLUTION 1,000 ML IV SCH (13:30)
[2016-04-21] MEDS: DOCUSATE SODIUM 100 MG CAPSULE (FP) PO SCH ×2 (13:33→21:32)
[2016-04-21] MEDS: POLYETHYLENE GLYCOL 3350 119 GM BTL PO SCH ×2 (13:33→21:32)
[2016-04-21] MEDS: HEPARIN NA (PORCINE) 5,000 UNITS/ML 1ML VIAL SQ SCH ×2 (13:33→21:32)
--- NOTE | 2016-04-21 14:01 | PN ---
Progress Note, Physician Chief Complaint: Ms Mei complains of crampy abdominal pain. no cp or sob. - Current Medication List Current Medications: Active Medications Acetaminophen (Tylenol -) 650 mg PO Q6H PRN PRN Reason: PAIN SCALE 6-10 Last Admin: 04/20/16 21:32 Dose: 650 mg Al Hydroxide/Mg Hydroxide (Mylanta Oral Suspension -) 30 ml PO Q6H PRN PRN Reason: DYSPEPSIA Atorvastatin Calcium (Lipitor -) 10 mg PO HS [facility] Last Admin: 04/20/16 21:32 Dose: 10 mg Bacitracin (Bacitracin -) 1 applic TP BID [facility] Last Admin: 04/21/16 10:18 Dose: 1 applic Cholecalciferol (Vitamin D3 -) 400 unit PO DAILY [facility] Last Admin: 04/21/16 10:18 Dose: 400 unit Dipyridamole/Aspirin (Aggrenox -) 1 combo PO BID [facility] Last Admin: 04/21/16 10:18 Dose: 1 combo Docusate Sodium (Colace -) 100 mg PO BID [facility] Last Admin: 04/21/16 13:33 Dose: 100 mg Heparin Sodium (Porcine) (Heparin -) 5,000 unit SQ BID [facility] Last Admin: 04/21/16 13:33 Dose: 5,000 unit Lactated Ringer's (Lactated Ringers Solution) 1,000 mls @ 125 mls/hr IV ASDIR [facility] Last Admin: 04/21/16 13:30 Dose: Not Given Sodium Chloride (Normal Saline -) 1,000 mls @ 75 mls/hr IV ASDIR [facility] Last Admin: 04/21/16 13:34 Dose: Not Given Levothyroxine Sodium (Synthroid -) 100 mcg PO DAILY@0700 [facility] Last Admin: 04/21/16 06:04 Dose: 100 mcg Lisinopril (Prinivil) 10 mg PO DAILY [facility] Last Admin: 04/21/16 10:18 Dose: 10 mg Metoprolol Tartrate (Lopressor -) 25 mg PO DAILY [facility] Last Admin: 04/21/16 10:18 Dose: 25 mg Morphine Sulfate (Morphine Injection -) 2 mg IVPUSH [id number] PRN PRN Reason: PAIN Stop: 04/22/16 10:38 Last Admin: 04/19/16 12:45 Dose: 2 mg Nitroglycerin (Nitrostat -) 0.4 mg SL PRN PRN Oxycodone HCl (Roxicodone -) 5 mg PO Q4H PRN PRN Reason: PAIN Pantoprazole Sodium (Protonix -) 40 mg PO DAILY [facility] Last Admin: 04/21/16 10:18 Dose: 40 mg Polyethylene Glycol (Miralax (For Daily Use) -) 17 gm PO BID [facility] Last Admin: 04/21/16 13:33 Dose: 17 gm Ranitidine HCl (Zantac -) 150 mg PO HS [facility] Last Admin: 04/20/16 21:32 Dose: 150 mg - Objective Vital Signs: Vital Signs Temperature 98.5 F 04/21/16 10:00 Pulse Rate 76 04/21/16 10:00 Respiratory Rate 20 04/21/16 10:00 Blood Pressure 150/73 04/21/16 10:00 O2 Sat by Pulse Oximetry (%) 96 04/20/16 21:00 Constitutional: Yes: Well Nourished, No Distress, Calm Cardiovascular: Yes: Regular Rate and Rhythm. No: Gallop, Murmur, Rub Respiratory: Yes: Regular, CTA Bilaterally. No: Rales, Rhonchi, Wheezes Gastrointestinal: Yes: Normal Bowel Sounds, Distention, Tenderness Extremities: Yes: WNL Edema: No Labs: CBC, BMP 04/21/16 06:30 04/21/16 06:30 INR, PTT INR 1.16 (0.82-1.09) H 04/16/16 07:15 Problem List - Problems (1) Right patella fracture Code(s): S82.001A - UNSP FRACTURE OF RIGHT PATELLA, INIT FOR CLOS FX Qualifiers: Encounter type: initial encounter Fracture type: closed Fracture morphology: unspecified fracture morphology Fracture alignment: displaced Qualified Code(s): S82.001A - Unspecified fracture of right patella, initial encounter for closed fracture (2) GERD (gastroesophageal reflux disease) Code(s): K21.9 - GASTRO-ESOPHAGEAL REFLUX DISEASE WITHOUT ESOPHAGITIS Qualifiers: Esophagitis presence: without esophagitis Qualified Code(s): K21.9 - Gastro-esophageal reflux disease without esophagitis (3) Nasal bone fracture Code(s): S02.2XXA - FRACTURE OF NASAL BONES, INIT ENCNTR FOR CLOSED FRACTURE (4) Hypercholesteremia Code(s): E78.0 - PURE HYPERCHOLESTEROLEMIA * DO NOT USE * (5) Hypertension Code(s): I10 - ESSENTIAL (PRIMARY) HYPERTENSION Qualifiers: Hypertension type: essential hypertension Qualified Code(s): I10 - Essential (primary) hypertension (6) Hypothyroid Code(s): E03.9 - HYPOTHYROIDISM, UNSPECIFIED Qualifiers: Hypothyroidism type: unspecified Qualified Code(s): E03.9 - Hypothyroidism, unspecified Assessment/Plan (1) Right patella fracture Assessment/Plan: -s/p surgery -continue pain control -will need SNF placement Code(s): S82.001A - UNSP FRACTURE OF RIGHT PATELLA, INIT FOR CLOS FX Qualifiers: Encounter type: initial encounter Fracture type: closed Fracture morphology: unspecified fracture morphology Fracture alignment: displaced Qualified Code(s): S82.001A - Unspecified fracture of right patella, initial encounter for closed fracture (2) GERD (gastroesophageal reflux disease) Assessment/Plan: -continue ranitidine -resolved Code(s): K21.9 - GASTRO-ESOPHAGEAL REFLUX DISEASE WITHOUT ESOPHAGITIS (3) Nasal bone fracture Assessment/Plan: -stable Code(s): S02.2XXA - FRACTURE OF NASAL BONES, INIT ENCNTR FOR CLOSED FRACTURE (4) Hypercholesteremia Assessment/Plan: -continue lipitor Code(s): E78.0 - PURE HYPERCHOLESTEROLEMIA * DO NOT USE * (5) Hypertension Assessment/Plan: -continue toprol and lisinopril -continue to monitor Code(s): I10 - ESSENTIAL (PRIMARY) HYPERTENSION (6) Hypothyroid Assessment/Plan: -continue synthroid Code(s): E03.9 - HYPOTHYROIDISM, UNSPECIFIED (7) Constipation -x-ray reviewed, constipation -mag citrate -colace and miralax
[2016-04-21] MEDS ORDERED: MAGNESIUM CITRATE 300 ML BOTTLE PO ONE (16:41)
[2016-04-21] MEDS: ACETAMINOPHEN 325 MG TABLET (FP) PO PRN (21:31)
[2016-04-21] MEDS: ATORVASTATIN CA 10 MG TABLET (FP) PO SCH (21:32)
[2016-04-21] MEDS: RANITIDINE HCL 150 MG TABLET (FP) PO SCH (21:32)
[2016-04-22] MEDS: SODIUM CHLORIDE 1,000 ML IV SCH ×3 (03:26→23:21)
[2016-04-22] MEDS: LEVOTHYROXINE NA 100 MCG TABLET (FP) PO SCH (06:47)
[2016-04-22] MEDS: ACETAMINOPHEN 325 MG TABLET (FP) PO PRN ×3 (06:47→23:11)
[2016-04-22 08:16] LABS: BASOPHIL 0.5 % (0-2.0); EOSINOPHIL 0.7 % (0-4.5); MCH 30.6 pg (25.7-33.7); MEAN CELL VOLUME 92.5 fl (80-96); MEAN PLT VOLUME 8.9 fl (7.5-11.1); NEUTROPHILS 87.5 % (42.8-82.8); PLATELET COUNT 270 K/MM3 (134-434); RDW 14.2 % (11.6-15.6); WHITE BLOOD COUNT 15.8 K/mm3 (4.0-10.0)
[2016-04-22 08:21] LABS: CALCIUM 8.1 mg/dL (8.5-10.1); CREATININE 1.5 mg/dL (0.55-1.02); MAGNESIUM 2.7 mg/dL (1.8-2.4); PHOSPHOROUS 2.9 mg/dL (2.5-4.9)
[2016-04-22] MEDS: CHOLECALCIFEROL (VITAMIN D3) 400 UNIT TABLET (FP) PO SCH (10:25)
[2016-04-22] MEDS: PANTOPRAZOLE 40 MG TABLET (FP) PO SCH (10:26)
[2016-04-22] MEDS: HEPARIN NA (PORCINE) 5,000 UNITS/ML 1ML VIAL SQ SCH ×2 (10:26→23:06)
[2016-04-22] MEDS: METOPROLOL TARTRATE 25 MG TABLET (FP) PO SCH (10:26)
[2016-04-22] MEDS: ASPIRIN/DIPYRIDAMOLE 25 MG/200 MG CAPSULE (FP) PO SCH ×2 (10:26→23:06)
[2016-04-22] MEDS: DOCUSATE SODIUM 100 MG CAPSULE (FP) PO SCH ×2 (10:26→23:05)
[2016-04-22] MEDS: LISINOPRIL 10 MG TABLET (FP) PO SCH (10:26)
[2016-04-22] MEDS: POLYETHYLENE GLYCOL 3350 119 GM BTL PO SCH ×2 (10:27→23:12)
[2016-04-22] MEDS: BACITRACIN 30 GM TUBE TOPICAL OINTMENT TP SCH ×2 (10:27→23:06)
[2016-04-22] MEDS: LACTATED RINGERS SOLUTION 1,000 ML IV SCH (10:27)
--- NOTE | 2016-04-22 10:44 | PN ---
Progress Note (short form) - Note Progress Note: Patient seen and examined Chart reviewed. Currently sitting up in bed, awake alert oriented and responsive appropriately. Marked discomfort at operative right knee site as well as with persistence of constipation, despite miralax Rx. Denies new chest discomfort palpitation or ZACARIAS. Appetite decreased. Nausea noted. Labs and sales enablement consultant notes reviewed. Selected Entries 04/21/16 04/22/16 21:00 08:34 Temperature 98.6 F Pulse Rate 68 Respiratory 18 Rate Blood Pressure 150/76 O2 Sat by Pulse 97 Oximetry (%) Oxygen Delivery Room Air Method Laboratory Tests 04/22/16 04/22/16 06:15 06:15 WBC 15.8 H Hgb 11.7 Hct 35.5 Plt Count 270 Sodium 144 Potassium 4.1 Chloride 112 H Carbon Dioxide 21 BUN 33 H D Creatinine 1.5 H D Random Glucose 100 Calcium 8.1 L Phosphorus 2.9 Magnesium 2.7 H Chest Clear Cor RRR Abd Firm BS decreased No localized pain, guarding or rebound tenderness noted Ext Right leg in immobilizer with ALAN wrap No obvious phlebitis Neuro No focal deficit Facial ecchymosis Assessment and Plan Right patellar fracture post-op post mechanical fall Orthopedic follow-up and P.T. Likely SNF/Rehab transfer Nasal fracture Stable GERD/Esophageal spasm Chronic stable HPL Stable HTN with HCVD Stable Renal insufficiency BUN/Cr 33/1.5 Hypothyroid Monitor Constipation Add Miralax Nausea Will order Ondansetron as needed H/O Right posterior cerebral artery CVA MVP by history Continue current Rx Increase activity as tolerated
--- NOTE | 2016-04-22 10:45 | PN ---
Progress Note (short form) - Note Progress Note: Chief Complaint: Events noted, notes reviewed, complaining of leg discomfort, denies any chest pain or dyspnea History of Present Illness: Seen and examined. Events noted, notes reviewed, complaining of leg discomfort, denies any chest pain or dyspnea - Current Medication List Current Medications Acetaminophen (Tylenol -) 650 mg PO Q6H PRN PRN Reason: PAIN SCALE 6-10 Last Admin: 04/22/16 06:47 Dose: 650 mg Al Hydroxide/Mg Hydroxide (Mylanta Oral Suspension -) 30 ml PO Q6H PRN PRN Reason: DYSPEPSIA Atorvastatin Calcium (Lipitor -) 10 mg PO HS [facility] Last Admin: 04/21/16 21:32 Dose: 10 mg Bacitracin (Bacitracin -) 1 applic TP BID [facility] Last Admin: 04/22/16 10:27 Dose: 1 applic Cholecalciferol (Vitamin D3 -) 400 unit PO DAILY [facility] Last Admin: 04/22/16 10:25 Dose: 400 unit Dipyridamole/Aspirin (Aggrenox -) 1 combo PO BID [facility] Last Admin: 04/22/16 10:26 Dose: 1 combo Docusate Sodium (Colace -) 100 mg PO BID [facility] Last Admin: 04/22/16 10:26 Dose: 100 mg Heparin Sodium (Porcine) (Heparin -) 5,000 unit SQ BID [facility] Last Admin: 04/22/16 10:26 Dose: 5,000 unit Lactated Ringer's (Lactated Ringers Solution) 1,000 mls @ 125 mls/hr IV ASDIR [facility] Last Admin: 04/22/16 10:27 Dose: Not Given Sodium Chloride (Normal Saline -) 1,000 mls @ 75 mls/hr IV ASDIR [facility] Last Admin: 04/22/16 10:20 Dose: 75 mls/hr Levothyroxine Sodium (Synthroid -) 100 mcg PO DAILY@0700 [facility] Last Admin: 04/22/16 06:47 Dose: 100 mcg Lisinopril (Prinivil) 10 mg PO DAILY [facility] Last Admin: 04/22/16 10:26 Dose: 10 mg Metoprolol Tartrate (Lopressor -) 25 mg PO DAILY [facility] Last Admin: 04/22/16 10:26 Dose: 25 mg Nitroglycerin (Nitrostat -) 0.4 mg SL PRN PRN Ondansetron HCl (Zofran Odt -) 4 mg SL Q8H PRN PRN Reason: NAUSEA Oxycodone HCl (Roxicodone -) 5 mg PO Q4H PRN PRN Reason: PAIN Pantoprazole Sodium (Protonix -) 40 mg PO DAILY [facility] Last Admin: 04/22/16 10:26 Dose: 40 mg Polyethylene Glycol (Miralax (For Daily Use) -) 17 gm PO BID [facility] Last Admin: 04/22/16 10:27 Dose: 17 gm Ranitidine HCl (Zantac -) 150 mg PO HS [facility] Last Admin: 04/21/16 21:32 Dose: 150 mg - Objective Vital Signs: Last Vital Signs Temp Pulse Resp BP Pulse Ox 98.6 F 68 18 150/76 97 04/22/16 08:34 04/22/16 08:34 04/22/16 08:34 04/22/16 08:34 04/21/16 21:00 Constitutional: No Distress, Calm Neck: Supple Negative JVD Cardiovascular: S1 S2 Regular Rate and Rhythm Respiratory: Diminished Breath Sounds at the Bases Gastrointestinal: Soft Benign Normal Bowel Sounds Ext: No Edema Cast in Situ Labs: CBC, BMP 04/22/16 06:15 04/22/16 06:15 Assessment/Plan ASSESSMENT: 1. 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 MVP 4. HTN 5. Hyperlipidemia 6. Hypothyroidism 7. History of GERD PLAN: 1. Continue Lopressor and titrate dosage 2. Continue Lisinopril 3. Continue Lipitor 4. Continue Aggrenox 5. Pain management as per the primary team 6. To initiate PT and eventually rehab Alexander Aguilar M.D.
[2016-04-22] MEDS: ONDANSETRON *ODT* 4 MG TABLET SL PRN ×2 (13:28→23:23)
[2016-04-22] MEDS: oxyCODONE HCL 5 MG TABLET PO PRN ×2 (14:56→23:09)
[2016-04-22] MEDS: ATORVASTATIN CA 10 MG TABLET (FP) PO SCH (23:05)
[2016-04-22] MEDS: RANITIDINE HCL 150 MG TABLET (FP) PO SCH (23:07)
[2016-04-23] MEDS: LEVOTHYROXINE NA 100 MCG TABLET (FP) PO SCH (06:16)
[2016-04-23 07:55] LABS: BASOPHIL 0.1 % (0-2.0); EOSINOPHIL 0.6 % (0-4.5); MCH 30.6 pg (25.7-33.7); MCHC 32.9 g/dl (32.0-36.0); MEAN PLT VOLUME 8.6 fl (7.5-11.1); NEUTROPHILS 87.4 % (42.8-82.8); PLATELET COUNT 286 K/MM3 (134-434); RDW 14.2 % (11.6-15.6); WHITE BLOOD COUNT 14.9 K/mm3 (4.0-10.0)
[2016-04-23 08:27] LABS: ALBUMIN 2.4 g/dl (3.4-5.0); BILIRUBIN,TOTAL 0.6 mg/dL (0.2-1.0); CALCIUM 8.3 mg/dL (8.5-10.1); CREATININE 1.6 mg/dL (0.55-1.02); TOT PROT 5.6 g/dl (6.4-8.2)
[2016-04-23] MEDS ORDERED: PT OWN MED DRAWER 7, Y5N ONE ×2 (08:47→09:32)
[2016-04-23] MEDS: oxyCODONE HCL 5 MG TABLET PO PRN ×2 (08:50→18:01)
[2016-04-23] MEDS: BACITRACIN 30 GM TUBE TOPICAL OINTMENT TP SCH ×2 (09:44→21:59)
[2016-04-23] MEDS: ASPIRIN/DIPYRIDAMOLE 25 MG/200 MG CAPSULE (FP) PO SCH ×3 (09:44→21:58)
[2016-04-23] MEDS: HEPARIN NA (PORCINE) 5,000 UNITS/ML 1ML VIAL SQ SCH ×2 (09:45→21:58)
[2016-04-23] MEDS: DOCUSATE SODIUM 100 MG CAPSULE (FP) PO SCH ×2 (09:45→21:58)
[2016-04-23] MEDS: LACTATED RINGERS SOLUTION 1,000 ML IV SCH (09:45)
[2016-04-23] MEDS: METOPROLOL TARTRATE 25 MG TABLET (FP) PO SCH (09:46)
[2016-04-23] MEDS: POLYETHYLENE GLYCOL 3350 119 GM BTL PO SCH ×2 (09:46→21:59)
[2016-04-23] MEDS: LISINOPRIL 10 MG TABLET (FP) PO SCH (09:47)
[2016-04-23] MEDS: CHOLECALCIFEROL (VITAMIN D3) 400 UNIT TABLET (FP) PO SCH (09:48)
[2016-04-23] MEDS: PANTOPRAZOLE 40 MG TABLET (FP) PO SCH (09:48)
--- NOTE | 2016-04-23 10:09 | PN ---
Progress Note (short form) - Note Progress Note: Patient seen and examined Chart reviewed. Currently sitting up in bed, awake alert oriented and responsive appropriately. Marked discomfort at operative right knee site as well as with persistence of constipation, and nausea/ anorexia. Denies new chest discomfort palpitation or ZACARIAS. Labs and erp implementation consultant notes reviewed. Nurses note small BM yesterday Selected Entries 04/22/16 04/23/16 21:00 09:26 Temperature 97.5 F L Pulse Rate 66 Respiratory 20 Rate Blood Pressure 116/64 O2 Sat by Pulse 98 Oximetry (%) Oxygen Delivery Room Air Method Laboratory Tests 04/23/16 04/23/16 07:30 07:30 WBC 14.9 H Hgb 11.5 Hct 34.9 Plt Count 286 Sodium 141 Potassium 4.2 Chloride 113 H Carbon Dioxide 19 L BUN 37 H Creatinine 1.6 H Random Glucose 89 Calcium 8.3 L Total Bilirubin 0.6 D AST 17 ALT 15 D Total Protein 5.6 L Albumin 2.4 L D Chest Clear Cor RRR Abd Firm BS decreased No localized pain, guarding or rebound tenderness noted Ext Right leg in immobilizer with ALAN wrap SCD LLE No obvious phlebitis Neuro No focal deficit Facial ecchymosis Assessment and Plan Right patellar fracture post-op post mechanical fall Orthopedic follow-up and P.T. Likely SNF/Rehab transfer Nasal fracture Stable GERD/Esophageal spasm Chronic stable HPL Stable HTN with HCVD Stable Renal insufficiency BUN/Cr 33/1.5>>37/1.6 Hypothyroid Monitor Constipation Add extra dose of Miralax Fleets enema Nausea Ondansetron as needed Hypoalbuminemia Multi-factorial H/O Right posterior cerebral artery CVA MVP by history Continue current Rx Increase activity as tolerated
[2016-04-23] MEDS ORDERED: SODIUM PHOSPHATE/NA BIPHOS 133 ML ENEMA PR ONE (10:10)
--- NOTE | 2016-04-23 10:45 | PN ---
Progress Note (short form) - Note Progress Note: Chief Complaint: Events noted, notes reviewed, complaining of constipation and persistent leg discomfort, denies any chest pain or dyspnea History of Present Illness: Seen and examined. Events noted, notes reviewed, complaining of constipation and persistent leg discomfort, denies any chest pain or dyspnea - Current Medication List Current Medications Acetaminophen (Tylenol -) 650 mg PO Q6H PRN PRN Reason: PAIN SCALE 6-10 Last Admin: 04/22/16 23:11 Dose: 650 mg Al Hydroxide/Mg Hydroxide (Mylanta Oral Suspension -) 30 ml PO Q6H PRN PRN Reason: DYSPEPSIA Atorvastatin Calcium (Lipitor -) 10 mg PO HS [facility] Last Admin: 04/22/16 23:05 Dose: 10 mg Bacitracin (Bacitracin -) 1 applic TP BID [facility] Last Admin: 04/23/16 09:44 Dose: 1 applic Cholecalciferol (Vitamin D3 -) 400 unit PO DAILY [facility] Last Admin: 04/23/16 09:48 Dose: 400 unit Dipyridamole/Aspirin (Aggrenox -) 1 combo PO BID [facility] Last Admin: 04/23/16 09:44 Dose: 1 combo Docusate Sodium (Colace -) 100 mg PO BID [facility] Last Admin: 04/23/16 09:45 Dose: 100 mg Heparin Sodium (Porcine) (Heparin -) 5,000 unit SQ BID [facility] Last Admin: 04/23/16 09:45 Dose: 5,000 unit Lactated Ringer's (Lactated Ringers Solution) 1,000 mls @ 125 mls/hr IV ASDIR [facility] Last Admin: 04/23/16 09:45 Dose: Not Given Sodium Chloride (Normal Saline -) 1,000 mls @ 75 mls/hr IV ASDIR [facility] Last Admin: 04/22/16 23:21 Dose: 75 mls/hr Levothyroxine Sodium (Synthroid -) 100 mcg PO DAILY@0700 [facility] Last Admin: 04/23/16 06:16 Dose: 100 mcg Lisinopril (Prinivil) 10 mg PO DAILY [facility] Last Admin: 04/23/16 09:47 Dose: 10 mg Metoprolol Tartrate (Lopressor -) 25 mg PO DAILY [facility] Last Admin: 04/23/16 09:46 Dose: 25 mg Nitroglycerin (Nitrostat -) 0.4 mg SL PRN PRN Ondansetron HCl (Zofran Odt -) 4 mg SL Q8H PRN PRN Reason: NAUSEA Last Admin: 04/22/16 23:23 Dose: 4 mg Oxycodone HCl (Roxicodone -) 5 mg PO Q4H PRN PRN Reason: PAIN Last Admin: 04/23/16 08:50 Dose: 5 mg Pantoprazole Sodium (Protonix -) 40 mg PO DAILY [facility] Last Admin: 04/23/16 09:48 Dose: 40 mg Polyethylene Glycol (Miralax (For Daily Use) -) 17 gm PO BID [facility] Last Admin: 04/23/16 09:46 Dose: 17 gm Ranitidine HCl (Zantac -) 150 mg PO HS [facility] Last Admin: 04/22/16 23:07 Dose: 150 mg Sodium Phosphate (Fleet Adult Rectal Enema -) 133 ml NV ONCE ONE Stop: 04/23/16 10:11 - Objective Vital Signs: Last Vital Signs Temp Pulse Resp BP Pulse Ox 97.5 F L 66 20 116/64 98 04/23/16 09:26 04/23/16 09:26 04/23/16 09:26 04/23/16 09:26 04/22/16 21:00 Constitutional: No Distress, Calm Neck: Supple Negative JVD Cardiovascular: S1 S2 Regular Rate and Rhythm Respiratory: Diminished Breath Sounds at the Bases Gastrointestinal: Soft Benign Normal Bowel Sounds Ext: No Edema Cast in Situ Labs: CBC, BMP 04/23/16 07:30 04/23/16 07:30 Assessment/Plan ASSESSMENT: 1. 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 MVP 4. HTN 5. Hyperlipidemia 6. Hypothyroidism 7. History of GERD PLAN: 1. Continue Lopressor 2. Continue Lisinopril 3. Continue Lipitor 4. Continue Aggrenox 5. Constipation management as per the primary team 6. Pain management as per the primary team Alexander Aguilar M.D.
--- NOTE | 2016-04-23 10:49 | PN ---
Progress Note (short form) - Note Progress Note: Pt seen and examined, doing ok, + c/o pain right knee. AVSS RLE in knee immobilizer, looks fine. RLE is NVI, foot and ankle are mildly swollen, but with good ROM. If possible, pt to get OOB with P.T. for assisted ambulation, PWB RLE. Pt can be DC'd from an orthopedic pov
[2016-04-23] MEDS: SODIUM CHLORIDE 1,000 ML IV SCH (13:47)
[2016-04-23] MEDS: ACETAMINOPHEN 325 MG TABLET (FP) PO PRN (15:26)
[2016-04-23] MEDS: ONDANSETRON *ODT* 4 MG TABLET SL PRN (15:36)
[2016-04-23] MEDS: RANITIDINE HCL 150 MG TABLET (FP) PO SCH (21:58)
[2016-04-23] MEDS: ATORVASTATIN CA 10 MG TABLET (FP) PO SCH (21:58)
[2016-04-24] MEDS: oxyCODONE HCL 5 MG TABLET PO PRN ×2 (02:00→10:37)
[2016-04-24] MEDS: LEVOTHYROXINE NA 100 MCG TABLET (FP) PO SCH (06:53)
[2016-04-24 08:30] LABS: BASOPHIL 0.5 % (0-2.0); MCH 30.7 pg (25.7-33.7); MCHC 33.1 g/dl (32.0-36.0); MEAN CELL VOLUME 92.8 fl (80-96); MEAN PLT VOLUME 8.2 fl (7.5-11.1); NEUTROPHILS 84.6 % (42.8-82.8); PLATELET COUNT 308 K/MM3 (134-434); RDW 14.1 % (11.6-15.6); WHITE BLOOD COUNT 13.2 K/mm3 (4.0-10.0)
[2016-04-24 08:56] LABS: ALBUMIN 2.2 g/dl (3.4-5.0); BILIRUBIN,TOTAL 0.6 mg/dL (0.2-1.0); CREATININE 1.2 mg/dL (0.55-1.02); MAGNESIUM 2.6 mg/dL (1.8-2.4); TOT PROT 5.2 g/dl (6.4-8.2)
--- NOTE | 2016-04-24 09:25 | PN ---
Progress Note (short form) - Note Progress Note: Ortho Pt seen and examined s/p right patella orif Selected Entries 04/24/16 05:24 Temperature 98.4 F Pulse Rate 68 Respiratory 18 Rate Blood Pressure 145/62 Laboratory Tests 04/24/16 06:30 WBC 13.2 H Hgb 11.7 Hct 35.4 Plt Count 308 dressing c/d/i, calf soft, nt nvi a/p knee immobilizer wbat PT dvt ppx pain control d/c planning
[2016-04-24] MEDS: LISINOPRIL 10 MG TABLET (FP) PO SCH (10:16)
[2016-04-24] MEDS: DOCUSATE SODIUM 100 MG CAPSULE (FP) PO SCH ×2 (10:16→22:41)
[2016-04-24] MEDS: ASPIRIN/DIPYRIDAMOLE 25 MG/200 MG CAPSULE (FP) PO SCH ×3 (10:16→22:54)
[2016-04-24] MEDS: HEPARIN NA (PORCINE) 5,000 UNITS/ML 1ML VIAL SQ SCH ×2 (10:16→22:41)
[2016-04-24] MEDS: PANTOPRAZOLE 40 MG TABLET (FP) PO SCH (10:16)
[2016-04-24] MEDS: METOPROLOL TARTRATE 25 MG TABLET (FP) PO SCH (10:16)
[2016-04-24] MEDS: BACITRACIN 30 GM TUBE TOPICAL OINTMENT TP SCH ×2 (10:16→22:41)
[2016-04-24] MEDS: CHOLECALCIFEROL (VITAMIN D3) 400 UNIT TABLET (FP) PO SCH (10:17)
[2016-04-24] MEDS: POLYETHYLENE GLYCOL 3350 119 GM BTL PO SCH ×3 (10:17→22:55)
[2016-04-24] MEDS: SODIUM CHLORIDE 1,000 ML IV SCH (12:58)
[2016-04-24] MEDS: LACTATED RINGERS SOLUTION 1,000 ML IV SCH (12:58)
[2016-04-24] MEDS: LACTULOSE 20 GM/30 ML UDC (FOR ORAL USE ONLY) PO SCH ×3 (13:56→22:55)
--- NOTE | 2016-04-24 16:25 | PN ---
Progress Note, Physician History of Present Illness: Right post-op knee discomfort resolving. Denies chest pain or dyspnea, still constipated. - Current Medication List Current Medications: Active Medications Acetaminophen (Tylenol -) 650 mg PO Q6H PRN PRN Reason: PAIN SCALE 6-10 Last Admin: 04/23/16 15:26 Dose: 650 mg Al Hydroxide/Mg Hydroxide (Mylanta Oral Suspension -) 30 ml PO Q6H PRN PRN Reason: DYSPEPSIA Albuterol/Ipratropium (Duoneb -) 1 amp NEB Q6H PRN PRN Reason: SHORTNESS OF BREATH Atorvastatin Calcium (Lipitor -) 10 mg PO HS [facility] Last Admin: 04/23/16 21:58 Dose: 10 mg Bacitracin (Bacitracin -) 1 applic TP BID [facility] Last Admin: 04/24/16 10:16 Dose: 1 applic Cholecalciferol (Vitamin D3 -) 400 unit PO DAILY [facility] Last Admin: 04/24/16 10:17 Dose: 400 unit Dipyridamole/Aspirin (Aggrenox -) 1 combo PO BID [facility] Last Admin: 04/24/16 10:16 Dose: 1 combo Docusate Sodium (Colace -) 100 mg PO BID [facility] Last Admin: 04/24/16 10:16 Dose: 100 mg Heparin Sodium (Porcine) (Heparin -) 5,000 unit SQ BID [facility] Last Admin: 04/24/16 10:16 Dose: 5,000 unit Lactated Ringer's (Lactated Ringers Solution) 1,000 mls @ 125 mls/hr IV ASDIR [facility] Last Admin: 04/24/16 12:58 Dose: Not Given Sodium Chloride (Normal Saline -) 1,000 mls @ 75 mls/hr IV ASDIR [facility] Last Admin: 04/24/16 12:58 Dose: Not Given Lactulose (Cephulac (Oral Use)) 20 gm PO TID [facility] Last Admin: 04/24/16 13:56 Dose: 20 gm Levothyroxine Sodium (Synthroid -) 100 mcg PO DAILY@0700 [facility] Last Admin: 04/24/16 06:53 Dose: 100 mcg Lisinopril (Prinivil) 10 mg PO DAILY [facility] Last Admin: 04/24/16 10:16 Dose: 10 mg Metoprolol Tartrate (Lopressor -) 25 mg PO DAILY [facility] Last Admin: 04/24/16 10:16 Dose: 25 mg Nitroglycerin (Nitrostat -) 0.4 mg SL PRN PRN Ondansetron HCl (Zofran Odt -) 4 mg SL Q8H PRN PRN Reason: NAUSEA Last Admin: 04/23/16 15:36 Dose: 4 mg Oxycodone HCl (Roxicodone -) 5 mg PO Q4H PRN PRN Reason: PAIN Pantoprazole Sodium (Protonix -) 40 mg PO DAILY [facility] Last Admin: 04/24/16 10:16 Dose: 40 mg Polyethylene Glycol (Miralax (For Daily Use) -) 17 gm PO BID [facility] Last Admin: 04/24/16 10:17 Dose: 17 gm Ranitidine HCl (Zantac -) 150 mg PO HS [facility] Last Admin: 04/23/16 21:58 Dose: 150 mg - Objective Vital Signs: Vital Signs Temperature 97.3 F L 04/24/16 15:44 Pulse Rate 66 04/24/16 15:44 Respiratory Rate 18 04/24/16 10:00 Blood Pressure 144/72 04/24/16 15:44 O2 Sat by Pulse Oximetry (%) 96 04/23/16 21:00 Constitutional: Yes: No Distress, Calm Neck: Yes: Supple Cardiovascular: Yes: Regular Rate and Rhythm Respiratory: Yes: Regular, CTA Bilaterally Gastrointestinal: Yes: Normal Bowel Sounds, Soft Edema: No Labs: CBC, BMP 04/24/16 06:30 04/24/16 06:30 INR, PTT INR 1.16 (0.82-1.09) H 04/16/16 07:15 Problem List - Problems (1) Right patella fracture Code(s): S82.001A - UNSP FRACTURE OF RIGHT PATELLA, INIT FOR CLOS FX Qualifiers: Encounter type: initial encounter Fracture type: closed Fracture morphology: unspecified fracture morphology Fracture alignment: displaced Qualified Code(s): S82.001A - Unspecified fracture of right patella, initial encounter for closed fracture (2) Hypercholesteremia Code(s): E78.0 - PURE HYPERCHOLESTEROLEMIA * DO NOT USE * (3) Hypertension Code(s): I10 - ESSENTIAL (PRIMARY) HYPERTENSION Qualifiers: Hypertension type: essential hypertension Qualified Code(s): I10 - Essential (primary) hypertension (4) Hypothyroid Code(s): E03.9 - HYPOTHYROIDISM, UNSPECIFIED Qualifiers: Hypothyroidism type: unspecified Qualified Code(s): E03.9 - Hypothyroidism, unspecified (5) History of stroke Code(s): Z86.73 - PRSNL HX OF TIA (TIA), AND CEREB INFRC W/O RESID DEFICITS Assessment/Plan 1. 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 MVP 4. HTN 5. Hyperlipidemia 6. Hypothyroidism 7. History of GERD PLAN: 1. Continue Lopressor 25 qd 2. Continue Lisinopril 10 qd 3. Continue Lipitor 10 qhs 4. Continue Aggrenox bid 5. Constipation management as per the primary team 6. Pain management, knee immobilizer, PT as tolerated, DVT and GI prophylaxis
--- NOTE | 2016-04-24 16:56 | PN ---
Progress Note, Physician Chief Complaint: Ms Mei complains of cough and congestion. States she is not having chest pain. No sob. Still with abdominal pain and distention. No bowel movement - Current Medication List Current Medications: Active Medications Acetaminophen (Tylenol -) 650 mg PO Q6H PRN PRN Reason: PAIN SCALE 6-10 Last Admin: 04/23/16 15:26 Dose: 650 mg Al Hydroxide/Mg Hydroxide (Mylanta Oral Suspension -) 30 ml PO Q6H PRN PRN Reason: DYSPEPSIA Albuterol/Ipratropium (Duoneb -) 1 amp NEB Q6H PRN PRN Reason: SHORTNESS OF BREATH Atorvastatin Calcium (Lipitor -) 10 mg PO HS [facility] Last Admin: 04/23/16 21:58 Dose: 10 mg Bacitracin (Bacitracin -) 1 applic TP BID [facility] Last Admin: 04/24/16 10:16 Dose: 1 applic Cholecalciferol (Vitamin D3 -) 400 unit PO DAILY [facility] Last Admin: 04/24/16 10:17 Dose: 400 unit Dipyridamole/Aspirin (Aggrenox -) 1 combo PO BID [facility] Last Admin: 04/24/16 10:16 Dose: 1 combo Docusate Sodium (Colace -) 100 mg PO BID [facility] Last Admin: 04/24/16 10:16 Dose: 100 mg Heparin Sodium (Porcine) (Heparin -) 5,000 unit SQ BID [facility] Last Admin: 04/24/16 10:16 Dose: 5,000 unit Lactated Ringer's (Lactated Ringers Solution) 1,000 mls @ 125 mls/hr IV ASDIR [facility] Last Admin: 04/24/16 12:58 Dose: Not Given Sodium Chloride (Normal Saline -) 1,000 mls @ 75 mls/hr IV ASDIR [facility] Last Admin: 04/24/16 12:58 Dose: Not Given Lactulose (Cephulac (Oral Use)) 20 gm PO TID [facility] Last Admin: 04/24/16 13:56 Dose: 20 gm Levothyroxine Sodium (Synthroid -) 100 mcg PO DAILY@0700 [facility] Last Admin: 04/24/16 06:53 Dose: 100 mcg Lisinopril (Prinivil) 10 mg PO DAILY [facility] Last Admin: 04/24/16 10:16 Dose: 10 mg Metoprolol Tartrate (Lopressor -) 25 mg PO DAILY [facility] Last Admin: 04/24/16 10:16 Dose: 25 mg Nitroglycerin (Nitrostat -) 0.4 mg SL PRN PRN Ondansetron HCl (Zofran Odt -) 4 mg SL Q8H PRN PRN Reason: NAUSEA Last Admin: 04/23/16 15:36 Dose: 4 mg Oxycodone HCl (Roxicodone -) 5 mg PO Q4H PRN PRN Reason: PAIN Pantoprazole Sodium (Protonix -) 40 mg PO DAILY [facility] Last Admin: 04/24/16 10:16 Dose: 40 mg Polyethylene Glycol (Miralax (For Daily Use) -) 17 gm PO BID [facility] Last Admin: 04/24/16 10:17 Dose: 17 gm Ranitidine HCl (Zantac -) 150 mg PO HS [facility] Last Admin: 04/23/16 21:58 Dose: 150 mg - Objective Vital Signs: Vital Signs Temperature 97.3 F L 04/24/16 15:44 Pulse Rate 66 04/24/16 15:44 Respiratory Rate 18 04/24/16 10:00 Blood Pressure 144/72 04/24/16 15:44 O2 Sat by Pulse Oximetry (%) 96 04/23/16 21:00 Constitutional: Yes: Well Nourished, No Distress, Calm Cardiovascular: Yes: Regular Rate and Rhythm. No: Gallop, Murmur, Rub Respiratory: Yes: Regular, Wheezes (slight). No: Rales, Rhonchi Gastrointestinal: Yes: Normal Bowel Sounds, Distention, Tenderness Extremities: Yes: WNL Edema: Yes Edema: RLE: 1+ Labs: CBC, BMP 04/24/16 06:30 04/24/16 06:30 INR, PTT INR 1.16 (0.82-1.09) H 04/16/16 07:15 Problem List - Problems (1) Right patella fracture Code(s): S82.001A - UNSP FRACTURE OF RIGHT PATELLA, INIT FOR CLOS FX Qualifiers: Encounter type: initial encounter Fracture type: closed Fracture morphology: unspecified fracture morphology Fracture alignment: displaced Qualified Code(s): S82.001A - Unspecified fracture of right patella, initial encounter for closed fracture (2) GERD (gastroesophageal reflux disease) Code(s): K21.9 - GASTRO-ESOPHAGEAL REFLUX DISEASE WITHOUT ESOPHAGITIS Qualifiers: Esophagitis presence: without esophagitis Qualified Code(s): K21.9 - Gastro-esophageal reflux disease without esophagitis (3) Nasal bone fracture Code(s): S02.2XXA - FRACTURE OF NASAL BONES, INIT ENCNTR FOR CLOSED FRACTURE (4) Hypercholesteremia Code(s): E78.0 - PURE HYPERCHOLESTEROLEMIA * DO NOT USE * (5) Hypertension Code(s): I10 - ESSENTIAL (PRIMARY) HYPERTENSION Qualifiers: Hypertension type: essential hypertension Qualified Code(s): I10 - Essential (primary) hypertension (6) Hypothyroid Code(s): E03.9 - HYPOTHYROIDISM, UNSPECIFIED Qualifiers: Hypothyroidism type: unspecified Qualified Code(s): E03.9 - Hypothyroidism, unspecified Assessment/Plan (1) Right patella fracture Assessment/Plan: -s/p surgery -continue pain control -will need SNF placement -will d/w ortho about edema Code(s): S82.001A - UNSP FRACTURE OF RIGHT PATELLA, INIT FOR CLOS FX Qualifiers: Encounter type: initial encounter Fracture type: closed Fracture morphology: unspecified fracture morphology Fracture alignment: displaced Qualified Code(s): S82.001A - Unspecified fracture of right patella, initial encounter for closed fracture (2) GERD (gastroesophageal reflux disease) Assessment/Plan: -continue ranitidine -resolved Code(s): K21.9 - GASTRO-ESOPHAGEAL REFLUX DISEASE WITHOUT ESOPHAGITIS (3) Nasal bone fracture Assessment/Plan: -stable Code(s): S02.2XXA - FRACTURE OF NASAL BONES, INIT ENCNTR FOR CLOSED FRACTURE (4) Hypercholesteremia Assessment/Plan: -continue lipitor Code(s): E78.0 - PURE HYPERCHOLESTEROLEMIA * DO NOT USE * (5) Hypertension Assessment/Plan: -continue toprol and lisinopril -continue to monitor Code(s): I10 - ESSENTIAL (PRIMARY) HYPERTENSION (6) Hypothyroid Assessment/Plan: -continue synthroid Code(s): E03.9 - HYPOTHYROIDISM, UNSPECIFIED (7) Constipation -still with constipation -add lactulose (8) Wheezing -patient complains of wheezing and coughing -I/S -check chest x-ray -brittany otto
[2016-04-24] MEDS ORDERED: PT OWN MED DRAWER 7, Y5N ONE (19:02)
[2016-04-24] MEDS: ONDANSETRON *ODT* 4 MG TABLET SL PRN (19:06)
[2016-04-24] MEDS: RANITIDINE HCL 150 MG TABLET (FP) PO SCH ×2 (22:40→22:55)
[2016-04-24] MEDS: ATORVASTATIN CA 10 MG TABLET (FP) PO SCH ×2 (22:40→22:55)
[2016-04-25] MEDS: LACTULOSE 20 GM/30 ML UDC (FOR ORAL USE ONLY) PO SCH ×4 (06:50→23:00)
[2016-04-25] MEDS: LEVOTHYROXINE NA 100 MCG TABLET (FP) PO SCH (06:50)
[2016-04-25] MEDS: SODIUM CHLORIDE 1,000 ML IV SCH (07:33)
[2016-04-25 09:04] LABS: BASOPHIL 0.5 % (0-2.0); EOSINOPHIL 1.7 % (0-4.5); MCH 30.6 pg (25.7-33.7); MCHC 33.3 g/dl (32.0-36.0); MEAN CELL VOLUME 91.7 fl (80-96); MEAN PLT VOLUME 7.9 fl (7.5-11.1); NEUTROPHILS 79.6 % (42.8-82.8); PLATELET COUNT 374 K/MM3 (134-434); RDW 14.2 % (11.6-15.6); WHITE BLOOD COUNT 13.2 K/mm3 (4.0-10.0)
[2016-04-25] MEDS: BACITRACIN 30 GM TUBE TOPICAL OINTMENT TP SCH ×3 (09:30→23:12)
[2016-04-25] MEDS: ASPIRIN/DIPYRIDAMOLE 25 MG/200 MG CAPSULE (FP) PO SCH ×2 (09:30→22:47)
[2016-04-25] MEDS: METOPROLOL TARTRATE 25 MG TABLET (FP) PO SCH ×2 (09:30→22:47)
[2016-04-25] MEDS: LISINOPRIL 10 MG TABLET (FP) PO SCH (09:30)
[2016-04-25] MEDS: DOCUSATE SODIUM 100 MG CAPSULE (FP) PO SCH ×2 (09:31→22:47)
[2016-04-25] MEDS: HEPARIN NA (PORCINE) 5,000 UNITS/ML 1ML VIAL SQ SCH (09:31)
[2016-04-25] MEDS: PANTOPRAZOLE 40 MG TABLET (FP) PO SCH (09:31)
[2016-04-25] MEDS: POLYETHYLENE GLYCOL 3350 119 GM BTL PO SCH ×3 (09:31→23:00)
[2016-04-25] MEDS: CHOLECALCIFEROL (VITAMIN D3) 400 UNIT TABLET (FP) PO SCH (09:31)
[2016-04-25 09:34] LABS: CALCIUM 8.3 mg/dL (8.5-10.1); CREATININE 1.1 mg/dL (0.55-1.02); MAGNESIUM 2.6 mg/dL (1.8-2.4); PHOSPHOROUS 3.1 mg/dL (2.5-4.9)
[2016-04-25] MEDS ORDERED: PT OWN MED DRAWER 7, Y5N ONE ×2 (09:41→17:16)
[2016-04-25] MEDS: ONDANSETRON *ODT* 4 MG TABLET SL PRN (09:44)
[2016-04-25] MEDS ORDERED: FUROSEMIDE 40 MG/4 ML INJECTABLE VIAL IVPB ONE (10:45)
[2016-04-25] MEDS: oxyCODONE HCL 5 MG TABLET PO PRN ×2 (11:30→22:47)
[2016-04-25] MEDS: ACETAMINOPHEN 325 MG TABLET (FP) PO PRN ×2 (13:20→22:47)
--- NOTE | 2016-04-25 14:20 | PN ---
Progress Note (short form) - Note Progress Note: Ortho Pt seen and examined s/p right patella orif dressing c/d/i, calf soft, nt nvi a/p knee immobilizer wbat PT dvt ppx pain control d/c planning
--- NOTE | 2016-04-25 15:27 | PN ---
Progress Note, Physician Chief Complaint: Ms Mei says she is feeling better today. With 3 bowel movements in past 24 hours. Shortness of breath improved. Currently without complaint. - Current Medication List Current Medications: Active Medications Acetaminophen (Tylenol -) 650 mg PO Q6H PRN PRN Reason: PAIN SCALE 6-10 Last Admin: 04/25/16 13:20 Dose: 650 mg Al Hydroxide/Mg Hydroxide (Mylanta Oral Suspension -) 30 ml PO Q6H PRN PRN Reason: DYSPEPSIA Albuterol/Ipratropium (Duoneb -) 1 amp NEB Q6H PRN PRN Reason: SHORTNESS OF BREATH Atorvastatin Calcium (Lipitor -) 10 mg PO HS [facility] Last Admin: 04/24/16 22:55 Dose: Not Given Bacitracin (Bacitracin -) 1 applic TP BID [facility] Last Admin: 04/25/16 09:30 Dose: 1 applic Cholecalciferol (Vitamin D3 -) 400 unit PO DAILY [facility] Last Admin: 04/25/16 09:31 Dose: 400 unit Dipyridamole/Aspirin (Aggrenox -) 1 combo PO BID [facility] Last Admin: 04/25/16 09:30 Dose: 1 combo Docusate Sodium (Colace -) 100 mg PO BID [facility] Last Admin: 04/25/16 09:31 Dose: 100 mg Heparin Sodium (Porcine) (Heparin -) 5,000 unit SQ BID [facility] Last Admin: 04/25/16 09:31 Dose: 5,000 unit Lactulose (Cephulac (Oral Use)) 20 gm PO TID [facility] Last Admin: 04/25/16 13:20 Dose: 20 gm Levothyroxine Sodium (Synthroid -) 100 mcg PO DAILY@0700 [facility] Last Admin: 04/25/16 06:50 Dose: 100 mcg Lisinopril (Prinivil) 10 mg PO DAILY [facility] Last Admin: 04/25/16 09:30 Dose: 10 mg Metoprolol Tartrate (Lopressor -) 25 mg PO DAILY [facility] Last Admin: 04/25/16 09:30 Dose: 25 mg Nitroglycerin (Nitrostat -) 0.4 mg SL PRN PRN Ondansetron HCl (Zofran Odt -) 4 mg SL Q8H PRN PRN Reason: NAUSEA Last Admin: 04/25/16 09:44 Dose: 4 mg Oxycodone HCl (Roxicodone -) 5 mg PO Q4H PRN PRN Reason: PAIN Last Admin: 04/25/16 11:30 Dose: 5 mg Pantoprazole Sodium (Protonix -) 40 mg PO DAILY [facility] Last Admin: 04/25/16 09:31 Dose: 40 mg Polyethylene Glycol (Miralax (For Daily Use) -) 17 gm PO BID [facility] Last Admin: 04/25/16 09:31 Dose: 17 gm Ranitidine HCl (Zantac -) 150 mg PO HS [facility] Last Admin: 04/24/16 22:55 Dose: Not Given - Objective Vital Signs: Vital Signs Temperature 97.8 F 04/25/16 14:04 Pulse Rate 85 04/25/16 09:00 Respiratory Rate 22 04/25/16 14:04 Blood Pressure 156/87 04/25/16 09:00 O2 Sat by Pulse Oximetry (%) 96 04/25/16 09:00 Constitutional: Yes: Well Nourished, No Distress, Calm Cardiovascular: Yes: Tachycardia. No: Gallop, Murmur, Rub Respiratory: Yes: Regular, CTA Bilaterally. No: Rales, Rhonchi, Wheezes Gastrointestinal: Yes: Normal Bowel Sounds, Distention, Other (firm but improved today). No: Tenderness Extremities: Yes: WNL Edema: Yes Edema: RLE: 1+ Labs: CBC, BMP 04/25/16 08:00 04/25/16 08:00 INR, PTT INR 1.16 (0.82-1.09) H 04/16/16 07:15 Problem List - Problems (1) Right patella fracture Code(s): S82.001A - UNSP FRACTURE OF RIGHT PATELLA, INIT FOR CLOS FX Qualifiers: Encounter type: initial encounter Fracture type: closed Fracture morphology: unspecified fracture morphology Fracture alignment: displaced Qualified Code(s): S82.001A - Unspecified fracture of right patella, initial encounter for closed fracture (2) GERD (gastroesophageal reflux disease) Code(s): K21.9 - GASTRO-ESOPHAGEAL REFLUX DISEASE WITHOUT ESOPHAGITIS Qualifiers: Esophagitis presence: without esophagitis Qualified Code(s): K21.9 - Gastro-esophageal reflux disease without esophagitis (3) Nasal bone fracture Code(s): S02.2XXA - FRACTURE OF NASAL BONES, INIT ENCNTR FOR CLOSED FRACTURE (4) Hypercholesteremia Code(s): E78.0 - PURE HYPERCHOLESTEROLEMIA * DO NOT USE * (5) Hypertension Code(s): I10 - ESSENTIAL (PRIMARY) HYPERTENSION Qualifiers: Hypertension type: essential hypertension Qualified Code(s): I10 - Essential (primary) hypertension (6) Hypothyroid Code(s): E03.9 - HYPOTHYROIDISM, UNSPECIFIED Qualifiers: Hypothyroidism type: unspecified Qualified Code(s): E03.9 - Hypothyroidism, unspecified Assessment/Plan (1) Right patella fracture Assessment/Plan: -s/p surgery -continue pain control -will need SNF placement -will d/w ortho about edema, is on heparin Code(s): S82.001A - UNSP FRACTURE OF RIGHT PATELLA, INIT FOR CLOS FX Qualifiers: Encounter type: initial encounter Fracture type: closed Fracture morphology: unspecified fracture morphology Fracture alignment: displaced Qualified Code(s): S82.001A - Unspecified fracture of right patella, initial encounter for closed fracture (2) GERD (gastroesophageal reflux disease) Assessment/Plan: -continue ranitidine -resolved Code(s): K21.9 - GASTRO-ESOPHAGEAL REFLUX DISEASE WITHOUT ESOPHAGITIS (3) Nasal bone fracture Assessment/Plan: -stable Code(s): S02.2XXA - FRACTURE OF NASAL BONES, INIT ENCNTR FOR CLOSED FRACTURE (4) Hypercholesteremia Assessment/Plan: -continue lipitor Code(s): E78.0 - PURE HYPERCHOLESTEROLEMIA * DO NOT USE * (5) Hypertension Assessment/Plan: -continue toprol and lisinopril -continue to monitor Code(s): I10 - ESSENTIAL (PRIMARY) HYPERTENSION (6) Hypothyroid Assessment/Plan: -continue synthroid Code(s): E03.9 - HYPOTHYROIDISM, UNSPECIFIED (7) Constipation -improving -continue current regimen (8) Pleural effusions -secondary to fluids -give lasix today -patient feels improved (9) Tachycardia -EKG says atrial fibrillation -very tachycardic -asymptomatic -transfer to telemetry -if remains tachycardic, give dose of IV diltiazem -cardiology made aware
--- NOTE | 2016-04-25 16:55 | PN ---
Progress Note, Physician Chief Complaint: Patient was seen earlier this am when she appeared comfortable except for being extremely weak. Denied chest pain, SOB or palpitations Complained of some cough History of Present Illness: Patient was seen and examined this am. Awake and alert. Chart was reviewed Denied chest pain, SOB or palpitations. Complains of post op knee pain Currently in the afternoon, spoke with Dr. Thorpe regardin her rhythm being in atrial fibrillation with rapid ventricular response She is being moved to telemetry unit - Current Medication List Current Medications: Active Medications Acetaminophen (Tylenol -) 650 mg PO Q6H PRN PRN Reason: PAIN SCALE 6-10 Last Admin: 04/25/16 13:20 Dose: 650 mg Al Hydroxide/Mg Hydroxide (Mylanta Oral Suspension -) 30 ml PO Q6H PRN PRN Reason: DYSPEPSIA Albuterol/Ipratropium (Duoneb -) 1 amp NEB Q6H PRN PRN Reason: SHORTNESS OF BREATH Atorvastatin Calcium (Lipitor -) 10 mg PO HS [facility] Last Admin: 04/24/16 22:55 Dose: Not Given Bacitracin (Bacitracin -) 1 applic TP BID [facility] Last Admin: 04/25/16 09:30 Dose: 1 applic Cholecalciferol (Vitamin D3 -) 400 unit PO DAILY [facility] Last Admin: 04/25/16 09:31 Dose: 400 unit Dipyridamole/Aspirin (Aggrenox -) 1 combo PO BID [facility] Last Admin: 04/25/16 09:30 Dose: 1 combo Docusate Sodium (Colace -) 100 mg PO BID [facility] Last Admin: 04/25/16 09:31 Dose: 100 mg Heparin Sodium (Porcine) (Heparin -) 5,000 unit SQ BID [facility] Last Admin: 04/25/16 09:31 Dose: 5,000 unit Lactulose (Cephulac (Oral Use)) 20 gm PO TID [facility] Last Admin: 04/25/16 13:20 Dose: 20 gm Levothyroxine Sodium (Synthroid -) 100 mcg PO DAILY@0700 [facility] Last Admin: 04/25/16 06:50 Dose: 100 mcg Lisinopril (Prinivil) 10 mg PO DAILY [facility] Last Admin: 04/25/16 09:30 Dose: 10 mg Metoprolol Tartrate (Lopressor -) 25 mg PO DAILY [facility] Last Admin: 04/25/16 09:30 Dose: 25 mg Nitroglycerin (Nitrostat -) 0.4 mg SL PRN PRN Ondansetron HCl (Zofran Odt -) 4 mg SL Q8H PRN PRN Reason: NAUSEA Last Admin: 04/25/16 09:44 Dose: 4 mg Oxycodone HCl (Roxicodone -) 5 mg PO Q4H PRN PRN Reason: PAIN Last Admin: 04/25/16 11:30 Dose: 5 mg Pantoprazole Sodium (Protonix -) 40 mg PO DAILY [facility] Last Admin: 04/25/16 09:31 Dose: 40 mg Polyethylene Glycol (Miralax (For Daily Use) -) 17 gm PO BID [facility] Last Admin: 04/25/16 09:31 Dose: 17 gm Ranitidine HCl (Zantac -) 150 mg PO HS [facility] Last Admin: 04/24/16 22:55 Dose: Not Given - Objective Vital Signs: Vital Signs Temperature 97.8 F 04/25/16 14:04 Pulse Rate 85 04/25/16 09:00 Respiratory Rate 22 04/25/16 14:04 Blood Pressure 156/87 04/25/16 09:00 O2 Sat by Pulse Oximetry (%) 96 04/25/16 09:00 Neck: Yes: Supple Cardiovascular: Yes: Regular Rate and Rhythm, S1, S2 Respiratory: Yes: Diminished Gastrointestinal: Yes: Normal Bowel Sounds, Soft. No: Tenderness Extremities: Yes: Other (post op knee surgery) Edema: No Additional Findings/Remarks: - Review of Systems Constitutional: denies: Chills, Fever Cardiovascular: denies: Chest Pain, (+) Palpitations, Shortness of Breath Respiratory: (+) Cough, denies: Hemoptysis, Orthopnea, SOB, SOB on Exertion, Wheezing Gastrointestinal: denies: No Symptoms, Abdominal Pain, Constipation, Diarrhea, Dysphagia, Melena, Nausea, Rectal Bleeding, Vomiting Genitourinary: denies: Dysuria Musculoskeletal: denies: Joint Pain Neurological: denies: Dizziness, Headache, Seizure, Syncope Labs: CBC, BMP 04/25/16 08:00 04/25/16 08:00 Laboratory Results - last 24 hr 04/25/16 04/25/16 08:00 08:00 WBC 13.2 H RBC 3.96 Hgb 12.1 Hct 36.3 MCV 91.7 MCHC 33.3 RDW 14.2 Plt Count 374 D MPV 7.9 Neutrophils % 79.6 Lymphocytes % 8.3 D Monocytes % 9.9 Eosinophils % 1.7 Basophils % 0.5 Sodium 145 Potassium 3.9 Chloride 115 H Carbon Dioxide 17 L Anion Gap 13 BUN 32 H Creatinine 1.1 H Random Glucose 98 D Calcium 8.3 L Phosphorus 3.1 Magnesium 2.6 H Problem List - Problems (1) Nasal bone fracture Code(s): S02.2XXA - FRACTURE OF NASAL BONES, INIT ENCNTR FOR CLOSED FRACTURE (2) Right patella fracture Code(s): S82.001A - UNSP FRACTURE OF RIGHT PATELLA, INIT FOR CLOS FX Qualifiers: Encounter type: initial encounter Fracture type: closed Fracture morphology: unspecified fracture morphology Fracture alignment: displaced Qualified Code(s): S82.001A - Unspecified fracture of right patella, initial encounter for closed fracture (3) GERD (gastroesophageal reflux disease) Code(s): K21.9 - GASTRO-ESOPHAGEAL REFLUX DISEASE WITHOUT ESOPHAGITIS Qualifiers: Esophagitis presence: without esophagitis Qualified Code(s): K21.9 - Gastro-esophageal reflux disease without esophagitis (4) Hypercholesteremia Code(s): E78.0 - PURE HYPERCHOLESTEROLEMIA * DO NOT USE * (5) Hypertension Code(s): I10 - ESSENTIAL (PRIMARY) HYPERTENSION Qualifiers: Hypertension type: essential hypertension Qualified Code(s): I10 - Essential (primary) hypertension (6) Hypothyroid Code(s): E03.9 - HYPOTHYROIDISM, UNSPECIFIED Qualifiers: Hypothyroidism type: unspecified Qualified Code(s): E03.9 - Hypothyroidism, unspecified (7) Pre-operative cardiovascular examination Code(s): Z01.810 - ENCOUNTER FOR PREPROCEDURAL CARDIOVASCULAR EXAMINATION (8) Atrial fibrillation Code(s): I48.91 - UNSPECIFIED ATRIAL FIBRILLATION Qualifiers: Atrial fibrillation type: paroxysmal Qualified Code(s): I48.0 - Paroxysmal atrial fibrillation Assessment/Plan 1. 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 MVP 4. HTN/HCVD 5. Hyperlipidemia 6. Hypothyroidism 7. History of GERD/esophageal spasm 8. New onset atrial fibrillation PLAN: 1. Post op care. Agree with transfer to telemetry. Increase Metoprolol dose and may give Cardizem IV for added rate control 2. Continue cardiac medication including Lisinopril and Metoprolol Tartrate 3. Consider Heparin drip or NOAC (Eliquis would be the choice of NOAC) 4. Continue Zantac and DVT prophylaxis 5. Pain management and eventual PT and rehab once clinically stable Further plans are to follow Shakir Cheney MD
[2016-04-25] MEDS ORDERED: HEPARIN NA (PORCINE) 5,000 UNITS/ML 1ML VIAL IVPUSH PRN ×2 (17:02)
[2016-04-25] MEDS ORDERED: METOPROLOL TARTRATE 25 MG TABLET (FP) PO ONE (17:03)
[2016-04-25] MEDS: HEPARIN INFUSION - 500 ML IVPB SCH (17:28)
[2016-04-25] MEDS ORDERED: METOPROLOL TARTRATE 5 MG/5 ML VIAL ONE (20:53)
[2016-04-25] MEDS ORDERED: METOPROLOL TARTRATE 5 MG/5 ML VIAL IVPUSH ONE (21:00)
[2016-04-25] MEDS: ATORVASTATIN CA 10 MG TABLET (FP) PO SCH (22:47)
[2016-04-25] MEDS: RANITIDINE HCL 150 MG TABLET (FP) PO SCH (22:47)
[2016-04-26] MEDS: oxyCODONE HCL 5 MG TABLET PO PRN ×2 (05:47→20:00)
[2016-04-26] MEDS: LACTULOSE 20 GM/30 ML UDC (FOR ORAL USE ONLY) PO SCH ×2 (05:47→13:27)
[2016-04-26] MEDS: LEVOTHYROXINE NA 100 MCG TABLET (FP) PO SCH (05:47)
--- NOTE | 2016-04-26 07:25 | EKG ---
Test Reason : Blood Pressure : / mmHG Vent. Rate : 171 BPM Atrial Rate : 174 BPM P-R Int : 000 ms QRS Dur : 066 ms QT Int : 282 ms P-R-T Axes : 000 -24 162 degrees QTc Int : 475 ms ATRIAL FIBRILLATION WITH RAPID VENTRICULAR RESPONSE INFERIOR INFARCT , AGE UNDETERMINED ST ABNORMAL ECG WHEN COMPARED WITH ECG OF 15-APR-2016 20:02, SIGNIFICANT CHANGES HAVE OCCURRED ATRIAL FIBRILLATION HAS REPLACED SINUS RHYTHM Confirmed by PREM AUGUSTE, MIRIAM ([id number]) on 04/26/2016 7:25:22 AM Referred By: DENTON DORSEY Overread By: MIRIAM AMARO MD
[2016-04-26 07:32] LABS: BASOPHIL 0.3 % (0-2.0); EOSINOPHIL 1.4 % (0-4.5); MCH 30.3 pg (25.7-33.7); MEAN CELL VOLUME 91.9 fl (80-96); MEAN PLT VOLUME 8.8 fl (7.5-11.1); PLATELET COUNT 443 K/MM3 (134-434); RDW 14.2 % (11.6-15.6); WHITE BLOOD COUNT 18.3 K/mm3 (4.0-10.0)
[2016-04-26 07:58] LABS: CALCIUM 8.1 mg/dL (8.5-10.1); MAGNESIUM 2.6 mg/dL (1.8-2.4)
[2016-04-26 08:00] LABS: CREATININE 1.4 mg/dL (0.55-1.02); PHOSPHOROUS 3.8 mg/dL (2.5-4.9)
[2016-04-26] MEDS: BACITRACIN 30 GM TUBE TOPICAL OINTMENT TP SCH ×2 (09:27→21:53)
[2016-04-26] MEDS: LISINOPRIL 10 MG TABLET (FP) PO SCH (09:31)
[2016-04-26] MEDS: PANTOPRAZOLE 40 MG TABLET (FP) PO SCH (09:31)
[2016-04-26] MEDS: METOPROLOL TARTRATE 25 MG TABLET (FP) PO SCH ×3 (09:31→21:53)
[2016-04-26] MEDS: POLYETHYLENE GLYCOL 3350 119 GM BTL PO SCH ×2 (09:32→21:53)
[2016-04-26] MEDS: DOCUSATE SODIUM 100 MG CAPSULE (FP) PO SCH ×2 (09:32→21:52)
[2016-04-26] MEDS: ASPIRIN/DIPYRIDAMOLE 25 MG/200 MG CAPSULE (FP) PO SCH ×2 (09:32→21:52)
--- NOTE | 2016-04-26 09:40 | PN ---
Progress Note, Physician History of Present Illness: No chest pain or dyspnea, in rapid afib. - Current Medication List Current Medications: Active Medications Acetaminophen (Tylenol -) 650 mg PO Q6H PRN PRN Reason: PAIN SCALE 6-10 Last Admin: 04/25/16 22:47 Dose: 650 mg Al Hydroxide/Mg Hydroxide (Mylanta Oral Suspension -) 30 ml PO Q6H PRN PRN Reason: DYSPEPSIA Albuterol/Ipratropium (Duoneb -) 1 amp NEB Q6H PRN PRN Reason: SHORTNESS OF BREATH Atorvastatin Calcium (Lipitor -) 10 mg PO HS [facility] Last Admin: 04/25/16 22:47 Dose: 10 mg Bacitracin (Bacitracin -) 1 applic TP BID [facility] Last Admin: 04/26/16 09:27 Dose: 1 applic Cholecalciferol (Vitamin D3 -) 400 unit PO DAILY [facility] Last Admin: 04/25/16 09:31 Dose: 400 unit Dipyridamole/Aspirin (Aggrenox -) 1 combo PO BID [facility] Last Admin: 04/26/16 09:32 Dose: 1 combo Docusate Sodium (Colace -) 100 mg PO BID [facility] Last Admin: 04/26/16 09:32 Dose: 100 mg Heparin Sodium (Porcine) (Heparin -) 1,000 unit IVPUSH PRN PRN PRN Reason: Heparin Heparin Sodium (Porcine) (Heparin -) 5,000 unit IVPUSH PRN PRN PRN Reason: Heparin Heparin Sodium/Dextrose (Heparin Infusion -) 500 mls @ 20 mls/hr IVPB TITR RENETTA ; 1,000 UNITS/HR PRN Reason: Protocol Last Titration: 04/26/16 08:47 Dose: 750 units/hr Lactulose (Cephulac (Oral Use)) 20 gm PO TID [facility] Last Admin: 04/26/16 05:47 Dose: 20 gm Levothyroxine Sodium (Synthroid -) 100 mcg PO DAILY@0700 [facility] Last Admin: 04/26/16 05:47 Dose: 100 mcg Lisinopril (Prinivil) 10 mg PO DAILY [facility] Last Admin: 04/26/16 09:31 Dose: 10 mg Metoprolol Tartrate (Lopressor -) 25 mg PO BID [facility] Last Admin: 04/26/16 09:31 Dose: 25 mg Nitroglycerin (Nitrostat -) 0.4 mg SL PRN PRN Ondansetron HCl (Zofran Odt -) 4 mg SL Q8H PRN PRN Reason: NAUSEA Last Admin: 04/25/16 09:44 Dose: 4 mg Oxycodone HCl (Roxicodone -) 5 mg PO Q4H PRN PRN Reason: PAIN Last Admin: 04/26/16 05:47 Dose: 5 mg Pantoprazole Sodium (Protonix -) 40 mg PO DAILY [facility] Last Admin: 04/26/16 09:31 Dose: 40 mg Polyethylene Glycol (Miralax (For Daily Use) -) 17 gm PO BID [facility] Last Admin: 04/26/16 09:32 Dose: 17 gm Ranitidine HCl (Zantac -) 150 mg PO HS [facility] Last Admin: 04/25/16 22:47 Dose: 150 mg - Objective Vital Signs: Vital Signs Temperature 97.5 F L 04/26/16 05:49 Pulse Rate 110 H 04/26/16 05:49 Respiratory Rate 20 04/26/16 05:49 Blood Pressure 116/64 04/26/16 05:49 O2 Sat by Pulse Oximetry (%) 95 04/25/16 21:00 Constitutional: Yes: No Distress, Calm Neck: Yes: Supple Cardiovascular: Yes: Tachycardia, Pulse Irregular Respiratory: Yes: Regular, Diminished, On Nasal O2 Gastrointestinal: Yes: Normal Bowel Sounds, Soft Edema: No Labs: CBC, BMP 04/26/16 05:35 04/26/16 05:35 INR, PTT INR 1.16 (0.82-1.09) H 04/16/16 07:15 - ....Imaging EKG: Report Reviewed (Afib @ 135 PRWP with rate-related changes) Problem List - Problems (1) Right patella fracture Code(s): S82.001A - UNSP FRACTURE OF RIGHT PATELLA, INIT FOR CLOS FX Qualifiers: Encounter type: initial encounter Fracture type: closed Fracture morphology: unspecified fracture morphology Fracture alignment: displaced Qualified Code(s): S82.001A - Unspecified fracture of right patella, initial encounter for closed fracture (2) Hypercholesteremia Code(s): E78.0 - PURE HYPERCHOLESTEROLEMIA * DO NOT USE * (3) Hypertension Code(s): I10 - ESSENTIAL (PRIMARY) HYPERTENSION Qualifiers: Hypertension type: essential hypertension Qualified Code(s): I10 - Essential (primary) hypertension (4) Hypothyroid Code(s): E03.9 - HYPOTHYROIDISM, UNSPECIFIED Qualifiers: Hypothyroidism type: unspecified Qualified Code(s): E03.9 - Hypothyroidism, unspecified (5) History of stroke Code(s): Z86.73 - PRSNL HX OF TIA (TIA), AND CEREB INFRC W/O RESID DEFICITS (6) Atrial fibrillation Code(s): I48.91 - UNSPECIFIED ATRIAL FIBRILLATION Qualifiers: Atrial fibrillation type: paroxysmal Qualified Code(s): I48.0 - Paroxysmal atrial fibrillation Assessment/Plan 1. 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 MVP 4. HTN/HCVD 5. Hyperlipidemia 6. Hypothyroidism 7. History of GERD/esophageal spasm 8. Newly diagnosed atrial fibrillation with RVR 9. 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 Leukocytosis r/o occult infection PLAN: 1. Increase Lopressor 25 tid, IV Lopressor or Cardizem as needed for additional rate-control 2. Continue Lisinopril 10 qd 3. Continue Lipitor 10 qhs 4. Continue Aggrenox bid, heparin gtt for now. Eventual Eliquis and would d/c Aggrenox at that time 5. Consider chest CTA once renal fxn stabilizes to r/o post-op pulm embolism 6. Pain management, knee immobilizer, PT as tolerated, GI prophylaxis 7. Flores-culture, monitor WBC
[2016-04-26] MEDS ORDERED: METOPROLOL TARTRATE 5 MG/5 ML VIAL IVPUSH ONE (09:47)
--- NOTE | 2016-04-26 11:20 | EKG ---
Test Reason : Blood Pressure : / mmHG Vent. Rate : 135 BPM Atrial Rate : 163 BPM P-R Int : 000 ms QRS Dur : 062 ms QT Int : 318 ms P-R-T Axes : 000 -06 -150 degrees QTc Int : 477 ms ATRIAL FIBRILLATION WITH RAPID VENTRICULAR RESPONSE POSSIBLE ANTEROLATERAL INFARCT (CITED ON OR BEFORE 15-APR-2016) ST EFFECT ABNORMAL ECG WHEN COMPARED WITH ECG OF 25-APR-2016 15:02, SERIAL CHANGES OF EVOLVING ANTEROLATERAL INFARCT PRESENT Confirmed by JACLYN AUGUSTE, MARY ([id number]) on 04/26/2016 11:20:31 AM Referred By: RAÚL DORSEY Overread By: MARY ANAYA MD
[2016-04-26] MEDS: CHOLECALCIFEROL (VITAMIN D3) 400 UNIT TABLET (FP) PO SCH (13:28)
--- NOTE | 2016-04-26 14:50 | PN ---
Progress Note, Physician Chief Complaint: Ms Mei continues to improve. Saying her stomach no longer hurts, having multiple bowel movements. No cp or sob. - Current Medication List Current Medications: Active Medications Acetaminophen (Tylenol -) 650 mg PO Q6H PRN PRN Reason: PAIN SCALE 6-10 Last Admin: 04/25/16 22:47 Dose: 650 mg Al Hydroxide/Mg Hydroxide (Mylanta Oral Suspension -) 30 ml PO Q6H PRN PRN Reason: DYSPEPSIA Albuterol/Ipratropium (Duoneb -) 1 amp NEB Q6H PRN PRN Reason: SHORTNESS OF BREATH Atorvastatin Calcium (Lipitor -) 10 mg PO HS [facility] Last Admin: 04/25/16 22:47 Dose: 10 mg Bacitracin (Bacitracin -) 1 applic TP BID [facility] Last Admin: 04/26/16 09:27 Dose: 1 applic Cholecalciferol (Vitamin D3 -) 400 unit PO DAILY [facility] Last Admin: 04/26/16 13:28 Dose: 400 unit Dipyridamole/Aspirin (Aggrenox -) 1 combo PO BID [facility] Last Admin: 04/26/16 09:32 Dose: 1 combo Docusate Sodium (Colace -) 100 mg PO BID [facility] Last Admin: 04/26/16 09:32 Dose: 100 mg Heparin Sodium (Porcine) (Heparin -) 1,000 unit IVPUSH PRN PRN PRN Reason: Heparin Heparin Sodium (Porcine) (Heparin -) 5,000 unit IVPUSH PRN PRN PRN Reason: Heparin Heparin Sodium/Dextrose (Heparin Infusion -) 500 mls @ 20 mls/hr IVPB TITR RENETTA ; 1,000 UNITS/HR PRN Reason: Protocol Last Titration: 04/26/16 08:47 Dose: 750 units/hr Levothyroxine Sodium (Synthroid -) 100 mcg PO DAILY@0700 [facility] Last Admin: 04/26/16 05:47 Dose: 100 mcg Lisinopril (Prinivil) 10 mg PO DAILY [facility] Last Admin: 04/26/16 09:31 Dose: 10 mg Metoprolol Tartrate (Lopressor -) 25 mg PO TID [facility] Last Admin: 04/26/16 13:27 Dose: 25 mg Nitroglycerin (Nitrostat -) 0.4 mg SL PRN PRN Ondansetron HCl (Zofran Odt -) 4 mg SL Q8H PRN PRN Reason: NAUSEA Last Admin: 04/25/16 09:44 Dose: 4 mg Oxycodone HCl (Roxicodone -) 5 mg PO Q4H PRN PRN Reason: PAIN Last Admin: 04/26/16 05:47 Dose: 5 mg Pantoprazole Sodium (Protonix -) 40 mg PO DAILY [facility] Last Admin: 04/26/16 09:31 Dose: 40 mg Polyethylene Glycol (Miralax (For Daily Use) -) 17 gm PO BID [facility] Last Admin: 04/26/16 09:32 Dose: 17 gm Ranitidine HCl (Zantac -) 150 mg PO HS [facility] Last Admin: 04/25/16 22:47 Dose: 150 mg - Objective Vital Signs: Vital Signs Temperature 97.7 F 04/26/16 10:00 Pulse Rate 98 H 04/26/16 10:15 Respiratory Rate 19 04/26/16 10:00 Blood Pressure 129/83 04/26/16 10:06 O2 Sat by Pulse Oximetry (%) 94 L 04/26/16 10:15 Constitutional: Yes: Well Nourished, No Distress, Calm Cardiovascular: Yes: Tachycardia, Pulse Irregular. No: Gallop, Murmur, Rub Respiratory: Yes: Regular, CTA Bilaterally. No: Rales, Rhonchi, Wheezes Gastrointestinal: Yes: Normal Bowel Sounds. No: Soft (firm, but improving), Distention, Tenderness Extremities: Yes: WNL Edema: No Labs: CBC, BMP 04/26/16 05:35 04/26/16 05:35 INR, PTT INR 1.16 (0.82-1.09) H 04/16/16 07:15 Problem List - Problems (1) Right patella fracture Code(s): S82.001A - UNSP FRACTURE OF RIGHT PATELLA, INIT FOR CLOS FX Qualifiers: Encounter type: initial encounter Fracture type: closed Fracture morphology: unspecified fracture morphology Fracture alignment: displaced Qualified Code(s): S82.001A - Unspecified fracture of right patella, initial encounter for closed fracture (2) GERD (gastroesophageal reflux disease) Code(s): K21.9 - GASTRO-ESOPHAGEAL REFLUX DISEASE WITHOUT ESOPHAGITIS Qualifiers: Esophagitis presence: without esophagitis Qualified Code(s): K21.9 - Gastro-esophageal reflux disease without esophagitis (3) Nasal bone fracture Code(s): S02.2XXA - FRACTURE OF NASAL BONES, INIT ENCNTR FOR CLOSED FRACTURE (4) Hypercholesteremia Code(s): E78.0 - PURE HYPERCHOLESTEROLEMIA * DO NOT USE * (5) Hypertension Code(s): I10 - ESSENTIAL (PRIMARY) HYPERTENSION Qualifiers: Hypertension type: essential hypertension Qualified Code(s): I10 - Essential (primary) hypertension (6) Hypothyroid Code(s): E03.9 - HYPOTHYROIDISM, UNSPECIFIED Qualifiers: Hypothyroidism type: unspecified Qualified Code(s): E03.9 - Hypothyroidism, unspecified Assessment/Plan (1) Right patella fracture Assessment/Plan: -s/p surgery -continue pain control -will need SNF placement -will d/w ortho about edema, is on heparin Code(s): S82.001A - UNSP FRACTURE OF RIGHT PATELLA, INIT FOR CLOS FX Qualifiers: Encounter type: initial encounter Fracture type: closed Fracture morphology: unspecified fracture morphology Fracture alignment: displaced Qualified Code(s): S82.001A - Unspecified fracture of right patella, initial encounter for closed fracture (2) GERD (gastroesophageal reflux disease) Assessment/Plan: -continue ranitidine -resolved Code(s): K21.9 - GASTRO-ESOPHAGEAL REFLUX DISEASE WITHOUT ESOPHAGITIS (3) Nasal bone fracture Assessment/Plan: -stable Code(s): S02.2XXA - FRACTURE OF NASAL BONES, INIT ENCNTR FOR CLOSED FRACTURE (4) Hypercholesteremia Assessment/Plan: -continue lipitor Code(s): E78.0 - PURE HYPERCHOLESTEROLEMIA * DO NOT USE * (5) Hypertension Assessment/Plan: -continue toprol and lisinopril -continue to monitor Code(s): I10 - ESSENTIAL (PRIMARY) HYPERTENSION (6) Hypothyroid Assessment/Plan: -continue synthroid Code(s): E03.9 - HYPOTHYROIDISM, UNSPECIFIED (7) Constipation -improving -continue current regimen (8) Pleural effusions -continues to improve clinically -? if cause of atrial fibrillation -monitor (9) Tachycardia -cardiology following -agree with CT scan when renal function improves -continue rate control -on heparin gtt (10) Leukocytosis -agree with cultures
[2016-04-26] MEDS: HEPARIN INFUSION - 500 ML IVPB SCH (18:11)
[2016-04-26] MEDS: ACETAMINOPHEN 325 MG TABLET (FP) PO PRN (19:58)
[2016-04-26] MEDS: ATORVASTATIN CA 10 MG TABLET (FP) PO SCH (21:52)
[2016-04-26] MEDS: RANITIDINE HCL 150 MG TABLET (FP) PO SCH (21:53)
[2016-04-27] MEDS: oxyCODONE HCL 5 MG TABLET PO PRN ×2 (05:46→19:52)
[2016-04-27] MEDS: ACETAMINOPHEN 325 MG TABLET (FP) PO PRN ×2 (05:47→22:28)
[2016-04-27] MEDS: LEVOTHYROXINE NA 100 MCG TABLET (FP) PO SCH (06:47)
[2016-04-27] MEDS: METOPROLOL TARTRATE 25 MG TABLET (FP) PO SCH ×4 (06:47→22:28)
[2016-04-27 07:42] LABS: MCH 30.2 pg (25.7-33.7); MCHC 33.2 g/dl (32.0-36.0); MEAN CELL VOLUME 91.1 fl (80-96); MEAN PLT VOLUME 8.5 fl (7.5-11.1); PLATELET COUNT 448 K/MM3 (134-434); RDW 14.7 % (11.6-15.6); WHITE BLOOD COUNT 19.7 K/mm3 (4.0-10.0)
[2016-04-27 08:38] LABS: CALCIUM 7.8 mg/dL (8.5-10.1); CREATININE 1.5 mg/dL (0.55-1.02); MAGNESIUM 2.5 mg/dL (1.8-2.4); PHOSPHOROUS 3.8 mg/dL (2.5-4.9)
--- NOTE | 2016-04-27 09:59 | PN ---
Progress Note, Physician Chief Complaint: Events noted Currently on telemetry unit due to AF with periods of rapid ventricular response (+) weakness History of Present Illness: Patient was seen and examined this am. Awake and alert. Chart was reviewed Denied chest pain. Denies shortness of breath Complains of generalized weakness AF with rapid ventricular response - Current Medication List Current Medications: Active Medications Acetaminophen (Tylenol -) 650 mg PO Q6H PRN PRN Reason: PAIN SCALE 6-10 Last Admin: 04/27/16 05:47 Dose: 650 mg Al Hydroxide/Mg Hydroxide (Mylanta Oral Suspension -) 30 ml PO Q6H PRN PRN Reason: DYSPEPSIA Albuterol/Ipratropium (Duoneb -) 1 amp NEB Q6H PRN PRN Reason: SHORTNESS OF BREATH Atorvastatin Calcium (Lipitor -) 10 mg PO HS [facility] Last Admin: 04/26/16 21:52 Dose: 10 mg Bacitracin (Bacitracin -) 1 applic TP BID [facility] Last Admin: 04/26/16 21:53 Dose: Not Given Cholecalciferol (Vitamin D3 -) 400 unit PO DAILY [facility] Last Admin: 04/26/16 13:28 Dose: 400 unit Dipyridamole/Aspirin (Aggrenox -) 1 combo PO BID [facility] Last Admin: 04/26/16 21:52 Dose: 1 combo Docusate Sodium (Colace -) 100 mg PO BID [facility] Last Admin: 04/26/16 21:52 Dose: Not Given Heparin Sodium (Porcine) (Heparin -) 1,000 unit IVPUSH PRN PRN PRN Reason: Heparin Heparin Sodium (Porcine) (Heparin -) 5,000 unit IVPUSH PRN PRN PRN Reason: Heparin Heparin Sodium/Dextrose (Heparin Infusion -) 500 mls @ 20 mls/hr IVPB TITR RENETTA ; 1,000 UNITS/HR PRN Reason: Protocol Last Admin: 04/26/16 18:11 Dose: 15 mls/hr Levothyroxine Sodium (Synthroid -) 100 mcg PO DAILY@0700 [facility] Last Admin: 04/27/16 06:47 Dose: 100 mcg Lisinopril (Prinivil) 10 mg PO DAILY [facility] Last Admin: 04/26/16 09:31 Dose: 10 mg Metoprolol Tartrate (Lopressor -) 25 mg PO TID [facility] Last Admin: 04/27/16 06:47 Dose: 25 mg Nitroglycerin (Nitrostat -) 0.4 mg SL PRN PRN Ondansetron HCl (Zofran Odt -) 4 mg SL Q8H PRN PRN Reason: NAUSEA Last Admin: 04/25/16 09:44 Dose: 4 mg Oxycodone HCl (Roxicodone -) 5 mg PO Q4H PRN PRN Reason: PAIN Last Admin: 04/27/16 05:46 Dose: 5 mg Pantoprazole Sodium (Protonix -) 40 mg PO DAILY [facility] Last Admin: 04/26/16 09:31 Dose: 40 mg Polyethylene Glycol (Miralax (For Daily Use) -) 17 gm PO BID [facility] Last Admin: 04/26/16 21:53 Dose: Not Given Ranitidine HCl (Zantac -) 150 mg PO HS [facility] Last Admin: 04/26/16 21:53 Dose: 150 mg - Objective Vital Signs: Vital Signs Temperature 98.2 F 04/27/16 06:00 Pulse Rate 112 H 04/27/16 06:00 Respiratory Rate 22 04/27/16 06:00 Blood Pressure 146/90 04/27/16 06:00 O2 Sat by Pulse Oximetry (%) 94 L 04/26/16 21:00 Neck: Yes: Supple Cardiovascular: Yes: Pulse Irregular, S1, S2 Respiratory: Yes: Diminished Gastrointestinal: Yes: Normal Bowel Sounds, Soft. No: Tenderness Edema: No Additional Findings/Remarks: - Review of Systems Constitutional: denies: Chills, Fever Cardiovascular: denies: Chest Pain, (+) Palpitations, (-) Shortness of Breath Respiratory: (+) Cough, denies: Hemoptysis, Orthopnea, SOB, SOB on Exertion, Wheezing Gastrointestinal: denies: No Symptoms, Abdominal Pain, Constipation, Diarrhea, Dysphagia, Melena, Nausea, Rectal Bleeding, Vomiting Genitourinary: denies: Dysuria Musculoskeletal: denies: Joint Pain Neurological: denies: Dizziness, Headache, Seizure, Syncope Labs: CBC, BMP 04/27/16 05:35 04/27/16 05:35 Problem List - Problems (1) Nasal bone fracture Code(s): S02.2XXA - FRACTURE OF NASAL BONES, INIT ENCNTR FOR CLOSED FRACTURE (2) Right patella fracture Code(s): S82.001A - UNSP FRACTURE OF RIGHT PATELLA, INIT FOR CLOS FX Qualifiers: Encounter type: initial encounter Fracture type: closed Fracture morphology: unspecified fracture morphology Fracture alignment: displaced Qualified Code(s): S82.001A - Unspecified fracture of right patella, initial encounter for closed fracture (3) GERD (gastroesophageal reflux disease) Code(s): K21.9 - GASTRO-ESOPHAGEAL REFLUX DISEASE WITHOUT ESOPHAGITIS Qualifiers: Esophagitis presence: without esophagitis Qualified Code(s): K21.9 - Gastro-esophageal reflux disease without esophagitis (4) Hypercholesteremia Code(s): E78.0 - PURE HYPERCHOLESTEROLEMIA * DO NOT USE * (5) Hypertension Code(s): I10 - ESSENTIAL (PRIMARY) HYPERTENSION Qualifiers: Hypertension type: essential hypertension Qualified Code(s): I10 - Essential (primary) hypertension (6) Hypothyroid Code(s): E03.9 - HYPOTHYROIDISM, UNSPECIFIED Qualifiers: Hypothyroidism type: unspecified Qualified Code(s): E03.9 - Hypothyroidism, unspecified (7) Pre-operative cardiovascular examination Code(s): Z01.810 - ENCOUNTER FOR PREPROCEDURAL CARDIOVASCULAR EXAMINATION (8) Atrial fibrillation Code(s): I48.91 - UNSPECIFIED ATRIAL FIBRILLATION Qualifiers: Atrial fibrillation type: paroxysmal Qualified Code(s): I48.0 - Paroxysmal atrial fibrillation Assessment/Plan 1. Patella fracture secondary to mechanical fall post ORIF 2. Atrial fibrillation with periods of rapid ventricular response 3. History of right posterior cerebral artery stroke 4. MVP 5. HTN/HCVD 6. Hyperlipidemia 7. Hypothyroidism 8. History of GERD/esophageal spasm PLAN: 1. Continue to titrate up Metoprolol for rate control. May also use IV Lopressor or IV Cardizem for added rate control 2. Continue Lisinopril 3. Continue Heparin drip. Consider NOAC - Eliquis 2.5 mg BID and discontinue Aggrenox. Heparin can be continued until tomorrow am 4. Continue Zantac and DVT prophylaxis 5. Pain management and eventual PT and rehab once clinically stable Further plans are to follow Shakir Cheney MD
--- NOTE | 2016-04-27 10:02 | PN ---
Progress Note (short form) - Note Progress Note: Pt seen, s/p right patella ORIF, doing well, states pain is much better. In knee immobilizer. RLE NVI. Can DC from an orthopedic pov F/u as an out pt in 1-2 weeks
[2016-04-27] MEDS: BACITRACIN 30 GM TUBE TOPICAL OINTMENT TP SCH ×2 (10:20→22:37)
[2016-04-27] MEDS: DOCUSATE SODIUM 100 MG CAPSULE (FP) PO SCH ×2 (10:20→22:28)
[2016-04-27] MEDS: ASPIRIN/DIPYRIDAMOLE 25 MG/200 MG CAPSULE (FP) PO SCH (10:21)
[2016-04-27] MEDS: PANTOPRAZOLE 40 MG TABLET (FP) PO SCH (10:21)
[2016-04-27] MEDS: LISINOPRIL 10 MG TABLET (FP) PO SCH (10:21)
[2016-04-27] MEDS: HEPARIN INFUSION - 500 ML IVPB SCH ×2 (10:24→17:15)
[2016-04-27] MEDS: CHOLECALCIFEROL (VITAMIN D3) 400 UNIT TABLET (FP) PO SCH (10:27)
[2016-04-27] MEDS ORDERED: dilTIAZem HCL 50 MG/10 ML - 10 ML VIAL IVPUSH ONE ×2 (10:35→10:39)
[2016-04-27] MEDS: POLYETHYLENE GLYCOL 3350 119 GM BTL PO SCH ×2 (11:05→22:37)
[2016-04-27] MEDS: APIXABAN 2.5 MG TABLET PO SCH ×2 (12:00→22:28)
--- NOTE | 2016-04-27 12:26 | CONSULT ---
Consult Consult Specialty:: PULM/CCM Referred by:: CHARLEE Reason for Consultation:: SOB - History of Present Illness Chief Complaint: S/P Fall History of Present Illness: 89 F, HTN, HCVD, hyperlipdemia, hypothyroidism, mitral valve prolapse, right posterior cerebral artery stroke (2012), GERD/esophageal spasm, and spinal stenosis. S/P mechanical fall sustaining a nasal bone fracture and right patella fracture. She is S/P Right Patellar ORIF on 04/19. Called for elevated HR and SOB. Patient reports some minimal dry cough. She does not have chest pressure or the sensation of palpitations. She is visibly uncomfortable due to knee pain. She denies pain in her calf or her foot. She can move all her toes freely and there is no numbness/tingling. - History Source History Provided By: Patient Limitations to Obtaining History: No Limitations - Past Medical History [employer]: Yes: CVA Cardio/Vascular: Yes: HTN, Hyperlipdemia Gastrointestinal: Yes: GERD - Past Surgical History Past Surgical History: Yes: Hysterectomy - Alcohol/Substance Use Hx Alcohol Use: No - Smoking History Smoking history: Unknown if ever smoked Have you smoked in the past 12 months: No Aproximately how many cigarettes per day: 0 - Social History ADL: Independent History of Recent Travel: No Home Medications - Allergies Allergies/Adverse Reactions: Allergies Allergy/AdvReac Type Severity Reaction Status Date / Time ciprofloxacin [From Cipro] Allergy Verified 04/15/16 15:40 ciprofloxacin HCl Allergy Verified 04/15/16 15:40 [From Cipro] codeine Allergy Verified 04/15/16 15:40 Penicillins Allergy Verified 04/15/16 15:40 - Home Medications Home Medications: Ambulatory Orders Levothyroxine [Synthroid -] 0.1 mg PO DAILY 02/17/13 Lisinopril [Prinivil] 10 mg PO DAILY 02/17/13 Aspirin/Dipyridamole [Aggrenox -] 1 combo PO BID 10/27/13 Metoprolol Tartrate [Lopressor -] 25 mg PO DAILY 10/27/13 Simvastatin [Zocor -] 20 mg PO HS 10/27/13 Nitroglycerin Sublingual [Nitrostat -] 0.4 mg SL PRN 09/16/14 Ranitidine [Zantac -] 150 mg PO HS #0 tablet 09/17/14 Aspirin/Dipyridamole [Aggrenox -] 1 combo PO BID 04/15/16 Cholecalciferol (Vitamin D3) [Vitamin D3 -] 400 unit PO DAILY 04/15/16 Famotidine/Ca Carb/Mag Hydrox [Pepcid Complete Tablet Chew] 1 each PO DAILY 02/19 Pantoprazole Sodium 40 mg PO DAILY 04/15/16 Family Disease History - Family Disease History Family Disease History: Other: Father (Parkinsons), Mother (cirrhosis), Brother (bladder cancer) Review of Systems - Review of Systems Constitutional: reports: Malaise, Weakness. denies: Chills, Fever, Night Sweats , Unintentional Wgt. Loss Eyes: reports: No Symptoms HENT: reports: No Symptoms Neck: reports: No Symptoms Cardiovascular: reports: Edema, Shortness of Breath. denies: Chest Pain, Palpitations Respiratory: reports: Cough, SOB. denies: Hemoptysis, Snoring, Wheezing Gastrointestinal: reports: No Symptoms Genitourinary: reports: No Symptoms Breasts: reports: No Symptoms Reported Musculoskeletal: reports: Joint Pain, Joint Swelling. denies: Extremity Pain, Muscle Cramps Integumentary: reports: No Symptoms Neurological: reports: No Symptoms Endocrine: reports: No Symptoms Hematology/Lymphatic: reports: No Symptoms Psychiatric: reports: No Symptoms Physical Exam Vital Sings: Vital Signs Temperature 98.2 F 04/27/16 10:40 Pulse Rate 106 H 04/27/16 11:40 Respiratory Rate 14 04/27/16 11:40 Blood Pressure 124/76 04/27/16 11:40 O2 Sat by Pulse Oximetry (%) 96 04/27/16 10:43 Constitutional: Yes: Anxious, Thin. No: Diaphoresis Eyes: Yes: Conjunctiva Clear, EOM Intact HENT: Yes: Atraumatic, Normocephalic Neck: Yes: Supple, Trachea Midline Cardiovascular: Yes: Tachycardia, Pulse Irregular Respiratory: Yes: Cough, Diminished, On Nasal O2, Rhonchi, Tachypnea. No: Accessory Muscle Use, Rales, Stridor, Wheezes ...Inspection: Yes: WNL ...Clubbing: No Gastrointestinal: Yes: WNL, Normal Bowel Sounds, Soft Renal/: Yes: WNL Musculoskeletal: Yes: Joint Swelling Extremities: Yes: Other (Right knee wrapped ) Peripheral Pulses WNL: Yes Integumentary: Yes: WNL Neurological: Yes: WNL, Alert, Oriented ...Motor Strength: WNL Psychiatric: Yes: WNL, Alert, Oriented Labs: CBC, BMP 04/27/16 05:35 04/27/16 05:35 Imaging - Results Chest X-ray: Report Reviewed, Image Reviewed (poor inspiratory effort / possible Increased vascular markings) Problem List - Problems (1) Atrial fibrillation Code(s): I48.91 - UNSPECIFIED ATRIAL FIBRILLATION Qualifiers: Atrial fibrillation type: paroxysmal Qualified Code(s): I48.0 - Paroxysmal atrial fibrillation (2) History of stroke Code(s): Z86.73 - PRSNL HX OF TIA (TIA), AND CEREB INFRC W/O RESID DEFICITS (3) Nasal bone fracture Code(s): S02.2XXA - FRACTURE OF NASAL BONES, INIT ENCNTR FOR CLOSED FRACTURE (4) Right patella fracture Code(s): S82.001A - UNSP FRACTURE OF RIGHT PATELLA, INIT FOR CLOS FX Qualifiers: Encounter type: initial encounter Fracture type: closed Fracture morphology: unspecified fracture morphology Fracture alignment: displaced Qualified Code(s): S82.001A - Unspecified fracture of right patella, initial encounter for closed fracture (5) GERD (gastroesophageal reflux disease) Code(s): K21.9 - GASTRO-ESOPHAGEAL REFLUX DISEASE WITHOUT ESOPHAGITIS Qualifiers: Esophagitis presence: without esophagitis Qualified Code(s): K21.9 - Gastro-esophageal reflux disease without esophagitis (6) Hypercholesteremia Code(s): E78.0 - PURE HYPERCHOLESTEROLEMIA * DO NOT USE * (7) Hypertension Code(s): I10 - ESSENTIAL (PRIMARY) HYPERTENSION Qualifiers: Hypertension type: essential hypertension Qualified Code(s): I10 - Essential (primary) hypertension (8) Hypothyroid Code(s): E03.9 - HYPOTHYROIDISM, UNSPECIFIED Qualifiers: Hypothyroidism type: unspecified Qualified Code(s): E03.9 - Hypothyroidism, unspecified Assessment/Plan PLAN: ECHO to look for right sided pathology O2 as needed Continue current AC for now Would not give contrast for CT study at this time Venous doppler CXR Will follow Thank you. Dr Quinones
--- NOTE | 2016-04-27 13:56 | PN ---
Progress Note, Physician Chief Complaint: Ms Mei is without complaint. No cp, sob, n/v. - Current Medication List Current Medications: Active Medications Acetaminophen (Tylenol -) 650 mg PO Q6H PRN PRN Reason: PAIN SCALE 6-10 Last Admin: 04/27/16 05:47 Dose: 650 mg Al Hydroxide/Mg Hydroxide (Mylanta Oral Suspension -) 30 ml PO Q6H PRN PRN Reason: DYSPEPSIA Albuterol/Ipratropium (Duoneb -) 1 amp NEB Q6H PRN PRN Reason: SHORTNESS OF BREATH Apixaban (Eliquis -) 2.5 mg PO BID [facility] Last Admin: 04/27/16 12:00 Dose: 2.5 mg Atorvastatin Calcium (Lipitor -) 10 mg PO HS [facility] Last Admin: 04/26/16 21:52 Dose: 10 mg Bacitracin (Bacitracin -) 1 applic TP BID [facility] Last Admin: 04/27/16 10:20 Dose: 1 applic Cholecalciferol (Vitamin D3 -) 400 unit PO DAILY [facility] Last Admin: 04/27/16 10:27 Dose: 400 unit Diltiazem HCl (Cardizem Injection -) 10 mg IVPUSH Q6H PRN Docusate Sodium (Colace -) 100 mg PO BID [facility] Last Admin: 04/27/16 10:20 Dose: 100 mg Heparin Sodium (Porcine) (Heparin -) 1,000 unit IVPUSH PRN PRN PRN Reason: Heparin Heparin Sodium (Porcine) (Heparin -) 5,000 unit IVPUSH PRN PRN PRN Reason: Heparin Heparin Sodium/Dextrose (Heparin Infusion -) 500 mls @ 20 mls/hr IVPB TITR RENETTA ; 1,000 UNITS/HR PRN Reason: Protocol Last Admin: 04/27/16 10:24 Dose: 15 mls/hr Levothyroxine Sodium (Synthroid -) 100 mcg PO DAILY@0700 [facility] Last Admin: 04/27/16 06:47 Dose: 100 mcg Lisinopril (Prinivil) 10 mg PO DAILY [facility] Last Admin: 04/27/16 10:21 Dose: 10 mg Metoprolol Tartrate (Lopressor -) 50 mg PO TID [facility] Last Admin: 04/27/16 12:00 Dose: 50 mg Morphine Sulfate (Morphine Injection -) 2 mg IVPUSH Q3H PRN PRN Reason: PAIN Nitroglycerin (Nitrostat -) 0.4 mg SL PRN PRN Ondansetron HCl (Zofran Odt -) 4 mg SL Q8H PRN PRN Reason: NAUSEA Last Admin: 04/25/16 09:44 Dose: 4 mg Oxycodone HCl (Roxicodone -) 5 mg PO Q4H PRN PRN Reason: PAIN Last Admin: 04/27/16 05:46 Dose: 5 mg Pantoprazole Sodium (Protonix -) 40 mg PO DAILY [facility] Last Admin: 04/27/16 10:21 Dose: 40 mg Polyethylene Glycol (Miralax (For Daily Use) -) 17 gm PO BID [facility] Last Admin: 04/27/16 11:05 Dose: 17 gm Ranitidine HCl (Zantac -) 150 mg PO HS [facility] Last Admin: 04/26/16 21:53 Dose: 150 mg - Objective Vital Signs: Vital Signs Temperature 98.2 F 04/27/16 10:40 Pulse Rate 106 H 04/27/16 11:40 Respiratory Rate 14 04/27/16 11:40 Blood Pressure 124/76 04/27/16 11:40 O2 Sat by Pulse Oximetry (%) 96 04/27/16 10:43 Constitutional: Yes: Well Nourished, No Distress, Calm Cardiovascular: Yes: Pulse Irregular. No: Gallop, Murmur, Rub Respiratory: Yes: Regular, On Nasal O2, Rales. No: Rhonchi, Wheezes Gastrointestinal: Yes: Normal Bowel Sounds, Soft. No: Distention, Tenderness Extremities: Yes: WNL Edema: Yes Edema: LLE: 1+, RLE: 1+ Labs: CBC, BMP 04/27/16 05:35 04/27/16 05:35 INR, PTT INR 1.16 (0.82-1.09) H 04/16/16 07:15 Problem List - Problems (1) Right patella fracture Code(s): S82.001A - UNSP FRACTURE OF RIGHT PATELLA, INIT FOR CLOS FX Qualifiers: Encounter type: initial encounter Fracture type: closed Fracture morphology: unspecified fracture morphology Fracture alignment: displaced Qualified Code(s): S82.001A - Unspecified fracture of right patella, initial encounter for closed fracture (2) GERD (gastroesophageal reflux disease) Code(s): K21.9 - GASTRO-ESOPHAGEAL REFLUX DISEASE WITHOUT ESOPHAGITIS Qualifiers: Esophagitis presence: without esophagitis Qualified Code(s): K21.9 - Gastro-esophageal reflux disease without esophagitis (3) Nasal bone fracture Code(s): S02.2XXA - FRACTURE OF NASAL BONES, INIT ENCNTR FOR CLOSED FRACTURE (4) Hypercholesteremia Code(s): E78.0 - PURE HYPERCHOLESTEROLEMIA * DO NOT USE * (5) Hypertension Code(s): I10 - ESSENTIAL (PRIMARY) HYPERTENSION Qualifiers: Hypertension type: essential hypertension Qualified Code(s): I10 - Essential (primary) hypertension (6) Hypothyroid Code(s): E03.9 - HYPOTHYROIDISM, UNSPECIFIED Qualifiers: Hypothyroidism type: unspecified Qualified Code(s): E03.9 - Hypothyroidism, unspecified Assessment/Plan (1) Right patella fracture Assessment/Plan: -s/p surgery -continue pain control -will need SNF placement Code(s): S82.001A - UNSP FRACTURE OF RIGHT PATELLA, INIT FOR CLOS FX Qualifiers: Encounter type: initial encounter Fracture type: closed Fracture morphology: unspecified fracture morphology Fracture alignment: displaced Qualified Code(s): S82.001A - Unspecified fracture of right patella, initial encounter for closed fracture (2) GERD (gastroesophageal reflux disease) Assessment/Plan: -continue ranitidine -resolved Code(s): K21.9 - GASTRO-ESOPHAGEAL REFLUX DISEASE WITHOUT ESOPHAGITIS (3) Nasal bone fracture Assessment/Plan: -stable Code(s): S02.2XXA - FRACTURE OF NASAL BONES, INIT ENCNTR FOR CLOSED FRACTURE (4) Hypercholesteremia Assessment/Plan: -continue lipitor Code(s): E78.0 - PURE HYPERCHOLESTEROLEMIA * DO NOT USE * (5) Hypertension Assessment/Plan: -continue toprol and lisinopril -continue to monitor Code(s): I10 - ESSENTIAL (PRIMARY) HYPERTENSION (6) Hypothyroid Assessment/Plan: -continue synthroid Code(s): E03.9 - HYPOTHYROIDISM, UNSPECIFIED (7) Constipation -improving -continue current regimen (8) Pleural effusions -continues to improve clinically -? if cause of atrial fibrillation -monitor (9) Tachycardia -cardiology following -agree with CT scan when renal function improves -continue rate control -on heparin gtt -pulmonary consulted for possible PE (10) Leukocytosis -ID consulted -case discussed, monitor off of antibiotics
[2016-04-27] MEDS: morphine CARPU-JECT 2 MG/1 ML DISP.SYRIN IVPUSH PRN (14:12)
--- NOTE | 2016-04-27 16:23 | PN ---
Progress Note (short form) - Note Progress Note: ID Consult dictated Leukocytosis, unclear source Probable CHF Afib/ RVR Possible PE Obtain c/s CTA chest when able -rule out PE Echocardiogram Check doppler Observe off antibiotics
--- NOTE | 2016-04-27 19:13 | CONS ---
DATE OF CONSULTATION: 04/27/2016 The patient is an 89-year-old female who was evaluated for possible pneumonia. The patient was admitted to the hospital on April 15, 2016, after a mechanical fall. She sustained trauma to her knees bilaterally and her nose. She was found to have a tender right knee, which was swollen. X-rays confirmed the presence of a right patella fracture. In addition, she had a nasal fracture. The patient was taken to the operating room on April 19, 2016, where an ORIF was performed. Her postoperative course has been complicated by atrial fibrillation with rapid ventricular response. She has had a worsening leukocytosis over the past week of unclear etiology. She has been afebrile. Patient reports occasional cough, productive of whitish sputum. She denies any chest pain or shortness of breath. No dysuria or hematuria. No vomiting or diarrhea. No reports of wound infection. She was placed on IV heparin for her new onset atrial fibrillation. A Doppler examination of the leg was performed and the results are pending. PAST MEDICAL HISTORY: Positive for stroke, hypertension, hyperlipidemia, hyperthyroidism. PAST SURGICAL HISTORY: Status post hysterectomy. ALLERGIES: CIPROFLOXACIN AND PENICILLIN. MEDICATIONS: 1. Zofran. 2. Tylenol. 3. Prinivil. 4. Eliquis. 5. Heparin. 6. DuoNeb. 7. Lopressor. 8. Cardizem. 9. Colace. 10. Zantac. 11. Lipitor. 12. Protonix. 13. Synthroid. SOCIAL HISTORY: Nonsmoker, nondrinker. She is originally from [place] and has been living in the [place] for over 39 years. REVIEW OF SYSTEMS: Neurologic: No loss of consciousness, seizure activity, or focal weakness. Cardiac: Negative chest pain or palpitations. Respiratory: As per HPI. Gastrointestinal: Negative vomiting or diarrhea. Genitourinary: Negative for urinary tract infection. LABORATORY DATA: White count 19.7, hematocrit 37.8, platelets 448, BUN 34, creatinine 1.5. Urinalysis: 4 white cells. Chest x-ray shows increased markings at the bases bilaterally consistent with congestive heart failure versus bibasilar infiltrates. PHYSICAL EXAMINATION: General: The patient is awake and alert, in no acute distress. Vitals: Temperature 97.6, blood pressure 119/80, pulse 106 and irregular, respirations 18 per minute. HEENT: Sclerae anicteric. Heart: Sounds are irregular. S1, S2. Lungs: Crepitations at the right base, decrease breath sounds at the left base. Abdomen: Soft. No tenderness elicited. No mass, rebound, or rigidity. Extremities: Positive for bilateral lower extremity edema. There is a surgical dressing present on the right patella; however, there is no surrounding erythema or warmth. IMPRESSION: 1. Leukocytosis, source unclear. 2. Probable congestive heart failure. 3. Atrial fibrillation with rapid ventricular response. 4. Possible pulmonary embolism. 5. ANTIBIOTIC ALLERGIES. PLAN: Clinical findings suggestive of congestive heart failure. No clinical evidence of pneumonia. We will await cultures. Obtain sputum culture, urine Legionella antigen, CT scan of the chest to rule out pulmonary embolism when clinically stable. Obtain echocardiogram, await Doppler examination, observe off of antibiotics. Thank you for the kind referral. JAZMYN FUENTES M.D. [id number]
[2016-04-27] MEDS: RANITIDINE HCL 150 MG TABLET (FP) PO SCH (22:28)
[2016-04-27] MEDS: ATORVASTATIN CA 10 MG TABLET (FP) PO SCH (22:28)
[2016-04-27] MEDS: dilTIAZem HCL 50 MG/10 ML - 10 ML VIAL IVPUSH PRN (22:38)
[2016-04-28] MEDS: ACETAMINOPHEN 325 MG TABLET (FP) PO PRN ×2 (05:55→15:37)
[2016-04-28] MEDS: oxyCODONE HCL 5 MG TABLET PO PRN ×3 (05:56→22:59)
[2016-04-28] MEDS: METOPROLOL TARTRATE 25 MG TABLET (FP) PO SCH ×3 (05:56→21:48)
[2016-04-28] MEDS: LEVOTHYROXINE NA 100 MCG TABLET (FP) PO SCH (06:00)
[2016-04-28 07:43] LABS: MCH 29.9 pg (25.7-33.7); MCHC 32.5 g/dl (32.0-36.0); PLATELET COUNT 440 K/MM3 (134-434); RDW 14.9 % (11.6-15.6)
[2016-04-28 07:53] LABS: WHITE BLOOD COUNT 33.4 K/mm3 (4.0-10.0)
[2016-04-28 08:58] LABS: ALBUMIN 1.8 g/dl (3.4-5.0); BILIRUBIN,TOTAL 0.7 mg/dL (0.2-1.0); CALCIUM 8.3 mg/dL (8.5-10.1); CREATININE 1.2 mg/dL (0.55-1.02); MAGNESIUM 2.6 mg/dL (1.8-2.4); PHOSPHOROUS 3.7 mg/dL (2.5-4.9); TOT PROT 5.1 g/dl (6.4-8.2)
[2016-04-28] MEDS: APIXABAN 2.5 MG TABLET PO SCH (09:48)
[2016-04-28] MEDS: PANTOPRAZOLE 40 MG TABLET (FP) PO SCH (09:48)
[2016-04-28] MEDS: LISINOPRIL 10 MG TABLET (FP) PO SCH (09:49)
[2016-04-28] MEDS: BACITRACIN 30 GM TUBE TOPICAL OINTMENT TP SCH ×2 (09:49→21:49)
[2016-04-28] MEDS: DOCUSATE SODIUM 100 MG CAPSULE (FP) PO SCH ×2 (09:49→22:04)
[2016-04-28] MEDS: CHOLECALCIFEROL (VITAMIN D3) 400 UNIT TABLET (FP) PO SCH (09:50)
--- NOTE | 2016-04-28 11:06 | PN ---
Progress Note, Physician Chief Complaint: Ms Mei says she is feeling bad today. States sometimes she is short of breath, other times she is not. She says she is very weak. She denies fevers, chest pain, nausea, vomiting, abdominal pain. Says she is having normal bowel movements. - Current Medication List Current Medications: Active Medications Acetaminophen (Tylenol -) 650 mg PO Q6H PRN PRN Reason: PAIN SCALE 6-10 Last Admin: 04/28/16 05:55 Dose: 650 mg Acetylcysteine (Mucomyst 20 Oral / Inh Use Only*) 1,200 mg PO BID [facility] Stop: 04/29/16 22:01 Al Hydroxide/Mg Hydroxide (Mylanta Oral Suspension -) 30 ml PO Q6H PRN PRN Reason: DYSPEPSIA Albuterol/Ipratropium (Duoneb -) 1 amp NEB Q6H PRN PRN Reason: SHORTNESS OF BREATH Apixaban (Eliquis -) 2.5 mg PO BID [facility] Last Admin: 04/28/16 09:48 Dose: 2.5 mg Atorvastatin Calcium (Lipitor -) 10 mg PO HS [facility] Last Admin: 04/27/16 22:28 Dose: 10 mg Bacitracin (Bacitracin -) 1 applic TP BID [facility] Last Admin: 04/28/16 09:49 Dose: 1 applic Cholecalciferol (Vitamin D3 -) 400 unit PO DAILY [facility] Last Admin: 04/28/16 09:50 Dose: 400 unit Diltiazem HCl (Cardizem Injection -) 10 mg IVPUSH Q6H PRN Last Admin: 04/27/16 22:38 Dose: 10 mg Docusate Sodium (Colace -) 100 mg PO BID [facility] Last Admin: 04/28/16 09:49 Dose: 100 mg Heparin Sodium (Porcine) (Heparin -) 1,000 unit IVPUSH PRN PRN PRN Reason: Heparin Heparin Sodium (Porcine) (Heparin -) 5,000 unit IVPUSH PRN PRN PRN Reason: Heparin Heparin Sodium/Dextrose (Heparin Infusion -) 500 mls @ 20 mls/hr IVPB TITR RENETTA ; 1,000 UNITS/HR PRN Reason: Protocol Last Admin: 04/27/16 17:15 Dose: Not Given Levothyroxine Sodium (Synthroid -) 100 mcg PO DAILY@0700 [facility] Last Admin: 04/28/16 06:00 Dose: 100 mcg Lisinopril (Prinivil) 10 mg PO DAILY [facility] Last Admin: 04/28/16 09:49 Dose: 10 mg Metoprolol Tartrate (Lopressor -) 50 mg PO TID [facility] Last Admin: 04/28/16 05:56 Dose: 50 mg Morphine Sulfate (Morphine Injection -) 2 mg IVPUSH Q3H PRN PRN Reason: PAIN Last Admin: 04/27/16 14:12 Dose: 2 mg Nitroglycerin (Nitrostat -) 0.4 mg SL PRN PRN Ondansetron HCl (Zofran Odt -) 4 mg SL Q8H PRN PRN Reason: NAUSEA Last Admin: 04/25/16 09:44 Dose: 4 mg Oxycodone HCl (Roxicodone -) 5 mg PO Q4H PRN PRN Reason: PAIN Last Admin: 04/28/16 05:56 Dose: 5 mg Pantoprazole Sodium (Protonix -) 40 mg PO DAILY [facility] Last Admin: 04/28/16 09:48 Dose: 40 mg Polyethylene Glycol (Miralax (For Daily Use) -) 17 gm PO BID [facility] Last Admin: 04/27/16 22:37 Dose: 17 gm Ranitidine HCl (Zantac -) 150 mg PO HS [facility] Last Admin: 04/27/16 22:28 Dose: 150 mg - Objective Vital Signs: Vital Signs Temperature 98.2 F 04/28/16 08:05 Pulse Rate 107 H 04/28/16 09:25 Respiratory Rate 12 04/28/16 08:05 Blood Pressure 108/60 04/28/16 08:05 O2 Sat by Pulse Oximetry (%) 95 04/28/16 09:25 Constitutional: Yes: Well Nourished, No Distress, Calm Cardiovascular: Yes: Tachycardia, Pulse Irregular. No: Gallop, Murmur, Rub Respiratory: Yes: Regular, On Nasal O2, Rhonchi (bibasilar). No: Rales, Tachypnea, Wheezes Gastrointestinal: Yes: Normal Bowel Sounds, Distention (minimal), Other (firm, but softer). No: Tenderness Extremities: Yes: WNL Edema: Yes Edema: LLE: 1+, RLE: 1+ Labs: CBC, BMP 04/28/16 05:35 04/28/16 05:35 INR, PTT INR 1.16 (0.82-1.09) H 04/16/16 07:15 Problem List - Problems (1) Right patella fracture Code(s): S82.001A - UNSP FRACTURE OF RIGHT PATELLA, INIT FOR CLOS FX Qualifiers: Encounter type: initial encounter Fracture type: closed Fracture morphology: unspecified fracture morphology Fracture alignment: displaced Qualified Code(s): S82.001A - Unspecified fracture of right patella, initial encounter for closed fracture (2) GERD (gastroesophageal reflux disease) Code(s): K21.9 - GASTRO-ESOPHAGEAL REFLUX DISEASE WITHOUT ESOPHAGITIS Qualifiers: Esophagitis presence: without esophagitis Qualified Code(s): K21.9 - Gastro-esophageal reflux disease without esophagitis (3) Nasal bone fracture Code(s): S02.2XXA - FRACTURE OF NASAL BONES, INIT ENCNTR FOR CLOSED FRACTURE (4) Hypercholesteremia Code(s): E78.0 - PURE HYPERCHOLESTEROLEMIA * DO NOT USE * (5) Hypertension Code(s): I10 - ESSENTIAL (PRIMARY) HYPERTENSION Qualifiers: Hypertension type: essential hypertension Qualified Code(s): I10 - Essential (primary) hypertension (6) Hypothyroid Code(s): E03.9 - HYPOTHYROIDISM, UNSPECIFIED Qualifiers: Hypothyroidism type: unspecified Qualified Code(s): E03.9 - Hypothyroidism, unspecified Assessment/Plan (1) Right patella fracture Assessment/Plan: -s/p surgery -continue pain control -will need SNF placement Code(s): S82.001A - UNSP FRACTURE OF RIGHT PATELLA, INIT FOR CLOS FX Qualifiers: Encounter type: initial encounter Fracture type: closed Fracture morphology: unspecified fracture morphology Fracture alignment: displaced Qualified Code(s): S82.001A - Unspecified fracture of right patella, initial encounter for closed fracture (2) GERD (gastroesophageal reflux disease) Assessment/Plan: -continue ranitidine -resolved Code(s): K21.9 - GASTRO-ESOPHAGEAL REFLUX DISEASE WITHOUT ESOPHAGITIS (3) Nasal bone fracture Assessment/Plan: -stable Code(s): S02.2XXA - FRACTURE OF NASAL BONES, INIT ENCNTR FOR CLOSED FRACTURE (4) Hypercholesteremia Assessment/Plan: -continue lipitor Code(s): E78.0 - PURE HYPERCHOLESTEROLEMIA * DO NOT USE * (5) Hypertension Assessment/Plan: -continue toprol and lisinopril -continue to monitor Code(s): I10 - ESSENTIAL (PRIMARY) HYPERTENSION (6) Hypothyroid Assessment/Plan: -continue synthroid Code(s): E03.9 - HYPOTHYROIDISM, UNSPECIFIED (7) Constipation -patient with normal bowel movements -continue stool softeners (8) Pleural effusions -worsening today -case d/w pulmonary -obtain CT scan with PE protocol since renal function improved -will give mucomyst for renal protection -? if needs thoracentesis (9) Atrial fibrillation -case d/w cardiology -continue anticoagulation and rate control -CT scan as above (10) Leukocytosis -continues to worsen -ID following and will see -patient saying she is not having diarrhea -abdomen is improving, not painful, with bowel movements -cultures sent and currently negative -will follow up CT scan and ID recommendations
[2016-04-28] MEDS ORDERED: ALBUTEROL SO4 0.083% IH SOL 2.5 MG/3 ML VIAL.NEB. NEB ONE (11:11)
--- NOTE | 2016-04-28 11:17 | PN ---
Progress Note, Physician History of Present Illness: Progressive dyspnea and weakness, remains in rapid afib. - Current Medication List Current Medications: Active Medications Acetaminophen (Tylenol -) 650 mg PO Q6H PRN PRN Reason: PAIN SCALE 6-10 Last Admin: 04/28/16 05:55 Dose: 650 mg Acetylcysteine (Mucomyst 20 Oral / Inh Use Only*) 1,200 mg PO BID [facility] Stop: 04/29/16 22:01 Al Hydroxide/Mg Hydroxide (Mylanta Oral Suspension -) 30 ml PO Q6H PRN PRN Reason: DYSPEPSIA Albuterol/Ipratropium (Duoneb -) 1 amp NEB Q6H PRN PRN Reason: SHORTNESS OF BREATH Apixaban (Eliquis -) 2.5 mg PO BID [facility] Last Admin: 04/28/16 09:48 Dose: 2.5 mg Atorvastatin Calcium (Lipitor -) 10 mg PO HS [facility] Last Admin: 04/27/16 22:28 Dose: 10 mg Bacitracin (Bacitracin -) 1 applic TP BID [facility] Last Admin: 04/28/16 09:49 Dose: 1 applic Cholecalciferol (Vitamin D3 -) 400 unit PO DAILY [facility] Last Admin: 04/28/16 09:50 Dose: 400 unit Diltiazem HCl (Cardizem Injection -) 10 mg IVPUSH Q6H PRN Last Admin: 04/27/16 22:38 Dose: 10 mg Docusate Sodium (Colace -) 100 mg PO BID [facility] Last Admin: 04/28/16 09:49 Dose: 100 mg Heparin Sodium (Porcine) (Heparin -) 1,000 unit IVPUSH PRN PRN PRN Reason: Heparin Heparin Sodium (Porcine) (Heparin -) 5,000 unit IVPUSH PRN PRN PRN Reason: Heparin Heparin Sodium/Dextrose (Heparin Infusion -) 500 mls @ 20 mls/hr IVPB TITR RENETTA ; 1,000 UNITS/HR PRN Reason: Protocol Last Admin: 04/27/16 17:15 Dose: Not Given Levothyroxine Sodium (Synthroid -) 100 mcg PO DAILY@0700 [facility] Last Admin: 04/28/16 06:00 Dose: 100 mcg Lisinopril (Prinivil) 10 mg PO DAILY [facility] Last Admin: 04/28/16 09:49 Dose: 10 mg Metoprolol Tartrate (Lopressor -) 50 mg PO TID [facility] Last Admin: 04/28/16 05:56 Dose: 50 mg Morphine Sulfate (Morphine Injection -) 2 mg IVPUSH Q3H PRN PRN Reason: PAIN Last Admin: 04/27/16 14:12 Dose: 2 mg Nitroglycerin (Nitrostat -) 0.4 mg SL PRN PRN Ondansetron HCl (Zofran Odt -) 4 mg SL Q8H PRN PRN Reason: NAUSEA Last Admin: 04/25/16 09:44 Dose: 4 mg Oxycodone HCl (Roxicodone -) 5 mg PO Q4H PRN PRN Reason: PAIN Last Admin: 04/28/16 05:56 Dose: 5 mg Pantoprazole Sodium (Protonix -) 40 mg PO DAILY [facility] Last Admin: 04/28/16 09:48 Dose: 40 mg Polyethylene Glycol (Miralax (For Daily Use) -) 17 gm PO BID [facility] Last Admin: 04/27/16 22:37 Dose: 17 gm Ranitidine HCl (Zantac -) 150 mg PO HS [facility] Last Admin: 04/27/16 22:28 Dose: 150 mg - Objective Vital Signs: Vital Signs Temperature 98.2 F 04/28/16 08:05 Pulse Rate 107 H 04/28/16 09:25 Respiratory Rate 12 04/28/16 08:05 Blood Pressure 108/60 04/28/16 08:05 O2 Sat by Pulse Oximetry (%) 95 04/28/16 09:25 Constitutional: Yes: No Distress, Calm Neck: Yes: Supple Cardiovascular: Yes: Pulse Irregular Respiratory: Yes: Regular, Diminished, On Venti-Mask Gastrointestinal: Yes: Normal Bowel Sounds, Soft Edema: No Labs: CBC, BMP 04/28/16 05:35 04/28/16 05:35 INR, PTT INR 1.16 (0.82-1.09) H 04/16/16 07:15 - ....Imaging Chest X-ray: Report Reviewed (Worsening pleural effusions) EKG: Report Reviewed (Tele: Rapid afib @ 120s) Problem List - Problems (1) Right patella fracture Code(s): S82.001A - UNSP FRACTURE OF RIGHT PATELLA, INIT FOR CLOS FX Qualifiers: Qualified Code(s): S82.001A - Unspecified fracture of right patella, initial encounter for closed fracture (2) Hypercholesteremia Code(s): E78.0 - PURE HYPERCHOLESTEROLEMIA * DO NOT USE * (3) Hypertension Code(s): I10 - ESSENTIAL (PRIMARY) HYPERTENSION Qualifiers: Qualified Code(s): I10 - Essential (primary) hypertension (4) Hypothyroid Code(s): E03.9 - HYPOTHYROIDISM, UNSPECIFIED Qualifiers: Qualified Code(s): E03.9 - Hypothyroidism, unspecified (5) History of stroke Code(s): Z86.73 - PRSNL HX OF TIA (TIA), AND CEREB INFRC W/O RESID DEFICITS (6) Atrial fibrillation Code(s): I48.91 - UNSPECIFIED ATRIAL FIBRILLATION Qualifiers: Qualified Code(s): I48.0 - Paroxysmal atrial fibrillation Assessment/Plan 1. Patella fracture secondary to mechanical fall post ORIF, r/o post-op PE 2. 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 MVP 5. HTN/HCVD 6. Hyperlipidemia 7. Hypothyroidism 8. History of GERD/esophageal spasm 9. Persisent atrial fibrillation with RVR 10. Acute on CKD improving 11. Leukocytosis r/o occult infection 12. History of right posterior cerebral artery stroke PLAN: 1. Continue Lopressor 50 tid, IV Lopressor or Cardizem as needed for additional rate-control 2. Continue Lisinopril 10 qd and Lipitor 10 qhs 3. D/c Eliquis, heparin gtt for now, may require thoracentesis pending chest CT 4. F/u chest CTA to r/o post-op pulm embolism with mucomyst prior, f/u echo to assess ventricular and valve fxn, BD, O2 to maintain sa)2 5. Pain management, knee immobilizer, PT as tolerated, GI prophylaxis 6. Flores-culture NGTD, monitor WBC off abx per ID
--- NOTE | 2016-04-28 11:31 | PN ---
Progress Note, Physician History of Present Illness: pulmonary alert,dyspneic,on vm. - Current Medication List Current Medications: Active Medications Acetaminophen (Tylenol -) 650 mg PO Q6H PRN PRN Reason: PAIN SCALE 6-10 Last Admin: 04/28/16 05:55 Dose: 650 mg Acetylcysteine (Mucomyst 20 Oral / Inh Use Only*) 1,200 mg PO BID [facility] Stop: 04/29/16 22:01 Al Hydroxide/Mg Hydroxide (Mylanta Oral Suspension -) 30 ml PO Q6H PRN PRN Reason: DYSPEPSIA Albuterol/Ipratropium (Duoneb -) 1 amp NEB Q6H PRN PRN Reason: SHORTNESS OF BREATH Apixaban (Eliquis -) 2.5 mg PO BID [facility] Last Admin: 04/28/16 09:48 Dose: 2.5 mg Atorvastatin Calcium (Lipitor -) 10 mg PO HS [facility] Last Admin: 04/27/16 22:28 Dose: 10 mg Bacitracin (Bacitracin -) 1 applic TP BID [facility] Last Admin: 04/28/16 09:49 Dose: 1 applic Cholecalciferol (Vitamin D3 -) 400 unit PO DAILY [facility] Last Admin: 04/28/16 09:50 Dose: 400 unit Diltiazem HCl (Cardizem Injection -) 10 mg IVPUSH Q6H PRN Last Admin: 04/27/16 22:38 Dose: 10 mg Docusate Sodium (Colace -) 100 mg PO BID [facility] Last Admin: 04/28/16 09:49 Dose: 100 mg Heparin Sodium (Porcine) (Heparin -) 1,000 unit IVPUSH PRN PRN PRN Reason: Heparin Heparin Sodium (Porcine) (Heparin -) 5,000 unit IVPUSH PRN PRN PRN Reason: Heparin Heparin Sodium/Dextrose (Heparin Infusion -) 500 mls @ 20 mls/hr IVPB TITR RENETTA ; 1,000 UNITS/HR PRN Reason: Protocol Last Admin: 04/27/16 17:15 Dose: Not Given Levothyroxine Sodium (Synthroid -) 100 mcg PO DAILY@0700 [facility] Last Admin: 04/28/16 06:00 Dose: 100 mcg Lisinopril (Prinivil) 10 mg PO DAILY [facility] Last Admin: 04/28/16 09:49 Dose: 10 mg Metoprolol Tartrate (Lopressor -) 50 mg PO TID [facility] Last Admin: 04/28/16 05:56 Dose: 50 mg Morphine Sulfate (Morphine Injection -) 2 mg IVPUSH Q3H PRN PRN Reason: PAIN Last Admin: 04/27/16 14:12 Dose: 2 mg Nitroglycerin (Nitrostat -) 0.4 mg SL PRN PRN Ondansetron HCl (Zofran Odt -) 4 mg SL Q8H PRN PRN Reason: NAUSEA Last Admin: 04/25/16 09:44 Dose: 4 mg Oxycodone HCl (Roxicodone -) 5 mg PO Q4H PRN PRN Reason: PAIN Last Admin: 04/28/16 05:56 Dose: 5 mg Pantoprazole Sodium (Protonix -) 40 mg PO DAILY [facility] Last Admin: 04/28/16 09:48 Dose: 40 mg Polyethylene Glycol (Miralax (For Daily Use) -) 17 gm PO BID [facility] Last Admin: 04/27/16 22:37 Dose: 17 gm Ranitidine HCl (Zantac -) 150 mg PO HS [facility] Last Admin: 04/27/16 22:28 Dose: 150 mg - Objective Vital Signs: Vital Signs Temperature 98.2 F 04/28/16 08:05 Pulse Rate 107 H 04/28/16 09:25 Respiratory Rate 12 04/28/16 08:05 Blood Pressure 108/60 04/28/16 08:05 O2 Sat by Pulse Oximetry (%) 95 04/28/16 09:25 Constitutional: Yes: Well Nourished, Mild Distress Eyes: Yes: WNL HENT: Yes: WNL Neck: Yes: WNL Cardiovascular: Yes: Pulse Irregular, S1, S2 Respiratory: Yes: Diminished Gastrointestinal: Yes: WNL Extremities: Yes: WNL Edema: Yes Labs: CBC, BMP 04/28/16 05:35 04/28/16 05:35 INR, PTT INR 1.16 (0.82-1.09) H 04/16/16 07:15 - ....Imaging Chest X-ray: Report Reviewed, Image Reviewed (INCREASED PUL VASC CONGESTION, EFFUSIONS) Assessment/Plan Problem List - Problems (1) Atrial fibrillation Code(s): I48.91 - UNSPECIFIED ATRIAL FIBRILLATION Qualifiers: Atrial fibrillation type: paroxysmal Qualified Code(s): I48.0 - Paroxysmal atrial fibrillation (2) History of stroke Code(s): Z86.73 - PRSNL HX OF TIA (TIA), AND CEREB INFRC W/O RESID DEFICITS (3) Nasal bone fracture Code(s): S02.2XXA - FRACTURE OF NASAL BONES, INIT ENCNTR FOR CLOSED FRACTURE (4) Right patella fracture Code(s): S82.001A - UNSP FRACTURE OF RIGHT PATELLA, INIT FOR CLOS FX Qualifiers: Encounter type: initial encounter Fracture type: closed Fracture morphology: unspecified fracture morphology Fracture alignment: displaced Qualified Code(s): S82.001A - Unspecified fracture of right patella, initial encounter for closed fracture (5) GERD (gastroesophageal reflux disease) Code(s): K21.9 - GASTRO-ESOPHAGEAL REFLUX DISEASE WITHOUT ESOPHAGITIS Qualifiers: Esophagitis presence: without esophagitis Qualified Code(s): K21.9 - Gastro-esophageal reflux disease without esophagitis (6) Hypercholesteremia Code(s): E78.0 - PURE HYPERCHOLESTEROLEMIA * DO NOT USE * (7) Hypertension Code(s): I10 - ESSENTIAL (PRIMARY) HYPERTENSION Qualifiers: Hypertension type: essential hypertension Qualified Code(s): I10 - Essential (primary) hypertension (8) Hypothyroid Code(s): E03.9 - HYPOTHYROIDISM, UNSPECIFIED Qualifiers: Hypothyroidism type: unspecified Qualified Code(s): E03.9 - Hypothyroidism, unspecified Assessment/Plan PLAN: ECHO O2 as needed AC CHEST CTA cultures monitor lytes ,renal function abg DR MASON
[2016-04-28] MEDS: POLYETHYLENE GLYCOL 3350 119 GM BTL PO SCH ×2 (11:40→22:04)
[2016-04-28 11:58] LABS: ARTERIAL BLD GAS O2 SATURATION 94.8 % (90-98.9); ARTERIAL BLOOD GAS HCO3 19.3 meq/L (22-26); ARTERIAL BLOOD GAS PO2 70.6 mmHg (68-100)
[2016-04-28 11:59] LABS: ALLENS TEST POSITIVE; ART PUNCT SITE RIGHT RADIAL; LPM/O2% 3L; PT. ON O2? YES; TYPE OF O2 NASAL CANNULA
[2016-04-28 12:02] LABS: ARTERIAL BLOOD GAS pH 7.51 (7.35-7.45)
[2016-04-28] MEDS ORDERED: HEPARIN NA (PORCINE) 5,000 UNITS/ML 1ML VIAL IVPUSH PRN ×2 (12:13)
[2016-04-28] MEDS: ACETYLCYSTEINE 20% 200MG/ML 30 ML VIAL *FOR ORAL / INH USE ONLY PO SCH ×2 (12:55→22:04)
[2016-04-28] MEDS: FUROSEMIDE 40 MG/4 ML INJECTABLE VIAL IVPUSH SCH (13:01)
[2016-04-28] MEDS: dilTIAZem HCL 50 MG/10 ML - 10 ML VIAL IVPUSH PRN (13:05)
--- NOTE | 2016-04-28 13:17 | PN ---
Progress Note, Physician History of Present Illness: Awake, responsive C/O generalized weakness Afebrile, but worsening thrombocytosis No c/o chest pain, dyspnea, cough No dysuria. No diarrhea CT chest ordered - Current Medication List Current Medications: Active Medications Acetaminophen (Tylenol -) 650 mg PO Q6H PRN PRN Reason: PAIN SCALE 6-10 Last Admin: 04/28/16 05:55 Dose: 650 mg Acetylcysteine (Mucomyst 20 Oral / Inh Use Only*) 1,200 mg PO BID [facility] Stop: 04/29/16 22:01 Last Admin: 04/28/16 12:55 Dose: 1,200 mg Al Hydroxide/Mg Hydroxide (Mylanta Oral Suspension -) 30 ml PO Q6H PRN PRN Reason: DYSPEPSIA Albuterol/Ipratropium (Duoneb -) 1 amp NEB Q6H PRN PRN Reason: SHORTNESS OF BREATH Atorvastatin Calcium (Lipitor -) 10 mg PO HS [facility] Last Admin: 04/27/16 22:28 Dose: 10 mg Bacitracin (Bacitracin -) 1 applic TP BID [facility] Last Admin: 04/28/16 09:49 Dose: 1 applic Cholecalciferol (Vitamin D3 -) 400 unit PO DAILY [facility] Last Admin: 04/28/16 09:50 Dose: 400 unit Diltiazem HCl (Cardizem Injection -) 10 mg IVPUSH Q6H PRN Last Admin: 04/27/16 22:38 Dose: 10 mg Docusate Sodium (Colace -) 100 mg PO BID [facility] Last Admin: 04/28/16 09:49 Dose: 100 mg Furosemide (Lasix Injection -) 40 mg IVPUSH BID@0600,1400 [facility] Last Admin: 04/28/16 13:01 Dose: 40 mg Heparin Sodium (Porcine) (Heparin -) 5,000 unit IVPUSH PRN PRN Heparin Sodium (Porcine) (Heparin -) 1,000 unit IVPUSH PRN PRN Heparin Sodium/Dextrose (Heparin Infusion -) 500 mls @ 15 mls/hr IVPB TITR RENETTA ; 750 UNITS/HR PRN Reason: Protocol Levothyroxine Sodium (Synthroid -) 100 mcg PO DAILY@0700 [facility] Last Admin: 04/28/16 06:00 Dose: 100 mcg Lisinopril (Prinivil) 10 mg PO DAILY [facility] Last Admin: 04/28/16 09:49 Dose: 10 mg Metoprolol Tartrate (Lopressor -) 50 mg PO TID [facility] Last Admin: 04/28/16 13:01 Dose: 50 mg Morphine Sulfate (Morphine Injection -) 2 mg IVPUSH Q3H PRN PRN Reason: PAIN Last Admin: 04/27/16 14:12 Dose: 2 mg Nitroglycerin (Nitrostat -) 0.4 mg SL PRN PRN Ondansetron HCl (Zofran Odt -) 4 mg SL Q8H PRN PRN Reason: NAUSEA Last Admin: 04/25/16 09:44 Dose: 4 mg Oxycodone HCl (Roxicodone -) 5 mg PO Q4H PRN PRN Reason: PAIN Last Admin: 04/28/16 05:56 Dose: 5 mg Pantoprazole Sodium (Protonix -) 40 mg PO DAILY [facility] Last Admin: 04/28/16 09:48 Dose: 40 mg Polyethylene Glycol (Miralax (For Daily Use) -) 17 gm PO BID [facility] Last Admin: 04/28/16 11:40 Dose: 17 gm Ranitidine HCl (Zantac -) 150 mg PO HS [facility] Last Admin: 04/27/16 22:28 Dose: 150 mg - Objective Vital Signs: Vital Signs Temperature 98.2 F 04/28/16 08:05 Pulse Rate 107 H 04/28/16 09:25 Respiratory Rate 12 04/28/16 08:05 Blood Pressure 108/60 04/28/16 08:05 O2 Sat by Pulse Oximetry (%) 95 04/28/16 09:25 Constitutional: Yes: No Distress Cardiovascular: Yes: S1, S2. No: Regular Rate and Rhythm Respiratory: Yes: Diminished Gastrointestinal: Yes: Normal Bowel Sounds, Soft. No: Tenderness Edema: Yes Edema: LLE: 1+, RLE: 1+ Labs: CBC, BMP 04/28/16 05:35 04/28/16 05:35 INR, PTT INR 1.16 (0.82-1.09) H 04/16/16 07:15 Assessment/Plan Leukocytosis- possible lung v. source Possible PE PCN / Quinolone allergy Await c/s, CT chest Start ceftriaxone 1gm IVPB qd
[2016-04-28] MEDS ORDERED: CEFTRIAXONE 50 ML IVPB SCH (13:30)
[2016-04-28] MEDS: morphine CARPU-JECT 2 MG/1 ML DISP.SYRIN IVPUSH PRN (17:43)
[2016-04-28] MEDS: HEPARIN INFUSION - 500 ML IVPB SCH (21:48)
[2016-04-28] MEDS: RANITIDINE HCL 150 MG TABLET (FP) PO SCH (21:49)
[2016-04-28] MEDS: ATORVASTATIN CA 10 MG TABLET (FP) PO SCH (21:49)
[2016-04-29] MEDS: oxyCODONE HCL 5 MG TABLET PO PRN ×3 (04:31→19:44)
[2016-04-29] MEDS: FUROSEMIDE 40 MG/4 ML INJECTABLE VIAL IVPUSH SCH ×2 (06:52→14:48)
[2016-04-29] MEDS: METOPROLOL TARTRATE 25 MG TABLET (FP) PO SCH ×3 (06:52→21:27)
[2016-04-29] MEDS: LEVOTHYROXINE NA 100 MCG TABLET (FP) PO SCH ×2 (06:53→21:20)
[2016-04-29 08:08] LABS: MCH 29.9 pg (25.7-33.7); MCHC 32.3 g/dl (32.0-36.0); MEAN CELL VOLUME 92.6 fl (80-96); MEAN PLT VOLUME 9.1 fl (7.5-11.1); PLATELET COUNT 445 K/MM3 (134-434); RDW 15.1 % (11.6-15.6)
[2016-04-29 08:38] LABS: CALCIUM 7.9 mg/dL (8.5-10.1); CREATININE 1.2 mg/dL (0.55-1.02)
[2016-04-29 08:40] LABS: INR 1.81 (0.82-1.09); PROTHROMBIN TIME (PATIENT) 20.1 SEC (9.98-11.88); WHITE BLOOD COUNT 33.1 K/mm3 (4.0-10.0)
--- NOTE | 2016-04-29 09:40 | PN ---
Progress Note, Physician History of Present Illness: PULMONARY FEELING BETTER,LESS DYSPNEIC. CHEST CT -PE,+BILATERAL PLEURAL EFFUSIONS - Current Medication List Current Medications: Active Medications Acetaminophen (Tylenol -) 650 mg PO Q6H PRN PRN Reason: PAIN SCALE 6-10 Last Admin: 04/28/16 15:37 Dose: 650 mg Acetylcysteine (Mucomyst 20 Oral / Inh Use Only*) 1,200 mg PO BID [facility] Stop: 04/29/16 22:01 Last Admin: 04/28/16 22:04 Dose: 1,200 mg Al Hydroxide/Mg Hydroxide (Mylanta Oral Suspension -) 30 ml PO Q6H PRN PRN Reason: DYSPEPSIA Albuterol/Ipratropium (Duoneb -) 1 amp NEB Q6H PRN PRN Reason: SHORTNESS OF BREATH Atorvastatin Calcium (Lipitor -) 10 mg PO HS [facility] Last Admin: 04/28/16 21:49 Dose: 10 mg Bacitracin (Bacitracin -) 1 applic TP BID [facility] Last Admin: 04/28/16 21:49 Dose: 1 applic Cholecalciferol (Vitamin D3 -) 400 unit PO DAILY [facility] Last Admin: 04/28/16 09:50 Dose: 400 unit Diltiazem HCl (Cardizem Injection -) 10 mg IVPUSH Q6H PRN Last Admin: 04/28/16 13:05 Dose: 10 mg Docusate Sodium (Colace -) 100 mg PO BID [facility] Last Admin: 04/28/16 22:04 Dose: Not Given Furosemide (Lasix Injection -) 40 mg IVPUSH BID@0600,1400 [facility] Last Admin: 04/29/16 06:52 Dose: 40 mg Heparin Sodium (Porcine) (Heparin -) 5,000 unit IVPUSH PRN PRN Heparin Sodium (Porcine) (Heparin -) 1,000 unit IVPUSH PRN PRN Heparin Sodium/Dextrose (Heparin Infusion -) 500 mls @ 15 mls/hr IVPB TITR RENETTA ; 750 UNITS/HR PRN Reason: Protocol Last Admin: 04/28/16 21:48 Dose: 15 mls/hr Ceftriaxone Sodium (Rocephin 1gm Ivpb (Pre-Docked)) 50 mls @ 100 mls/hr IVPB DAILY [facility] Last Admin: 04/28/16 15:36 Dose: 100 mls/hr Levothyroxine Sodium (Synthroid -) 100 mcg PO DAILY@0700 [facility] Last Admin: 04/29/16 06:53 Dose: 100 mcg Lisinopril (Prinivil) 10 mg PO DAILY [facility] Last Admin: 04/28/16 09:49 Dose: 10 mg Metoprolol Tartrate (Lopressor -) 50 mg PO TID [facility] Last Admin: 04/29/16 06:52 Dose: 50 mg Morphine Sulfate (Morphine Injection -) 2 mg IVPUSH Q3H PRN PRN Reason: PAIN Last Admin: 04/28/16 17:43 Dose: 2 mg Nitroglycerin (Nitrostat -) 0.4 mg SL PRN PRN Ondansetron HCl (Zofran Odt -) 4 mg SL Q8H PRN PRN Reason: NAUSEA Last Admin: 04/25/16 09:44 Dose: 4 mg Oxycodone HCl (Roxicodone -) 5 mg PO Q4H PRN PRN Reason: PAIN Last Admin: 04/29/16 04:31 Dose: 5 mg Pantoprazole Sodium (Protonix -) 40 mg PO DAILY [facility] Last Admin: 04/28/16 09:48 Dose: 40 mg Polyethylene Glycol (Miralax (For Daily Use) -) 17 gm PO BID [facility] Last Admin: 04/28/16 22:04 Dose: Not Given Ranitidine HCl (Zantac -) 150 mg PO HS [facility] Last Admin: 04/28/16 21:49 Dose: 150 mg - Objective Vital Signs: Vital Signs Temperature 97.9 F 04/29/16 08:09 Pulse Rate 80 04/29/16 08:09 Respiratory Rate 18 04/29/16 08:09 Blood Pressure 117/70 04/29/16 08:09 O2 Sat by Pulse Oximetry (%) 95 04/28/16 21:00 Constitutional: Yes: Well Nourished, Calm Eyes: Yes: WNL HENT: Yes: WNL Neck: Yes: WNL Cardiovascular: Yes: Pulse Irregular, S1, S2 Respiratory: Yes: Diminished (DIMINISHED BS BILATERALLY 1/3 UP) Gastrointestinal: Yes: Normal Bowel Sounds, Soft Extremities: Yes: WNL Edema: No Labs: CBC, BMP 04/29/16 05:45 04/29/16 05:45 INR, PTT INR 1.81 (0.82-1.09) H D 04/29/16 05:45 - ....Imaging Cat Scan: Report Reviewed, Image Reviewed Assessment/Plan Problem List - Problems (1) Atrial fibrillation Code(s): I48.91 - UNSPECIFIED ATRIAL FIBRILLATION Qualifiers: Atrial fibrillation type: paroxysmal Qualified Code(s): I48.0 - Paroxysmal atrial fibrillation (2) History of stroke Code(s): Z86.73 - PRSNL HX OF TIA (TIA), AND CEREB INFRC W/O RESID DEFICITS (3) Nasal bone fracture Code(s): S02.2XXA - FRACTURE OF NASAL BONES, INIT ENCNTR FOR CLOSED FRACTURE (4) Right patella fracture Code(s): S82.001A - UNSP FRACTURE OF RIGHT PATELLA, INIT FOR CLOS FX Qualifiers: Encounter type: initial encounter Fracture type: closed Fracture morphology: unspecified fracture morphology Fracture alignment: displaced Qualified Code(s): S82.001A - Unspecified fracture of right patella, initial encounter for closed fracture (5) GERD (gastroesophageal reflux disease) Code(s): K21.9 - GASTRO-ESOPHAGEAL REFLUX DISEASE WITHOUT ESOPHAGITIS Qualifiers: Esophagitis presence: without esophagitis Qualified Code(s): K21.9 - Gastro-esophageal reflux disease without esophagitis (6) Hypercholesteremia Code(s): E78.0 - PURE HYPERCHOLESTEROLEMIA * DO NOT USE * (7) Hypertension Code(s): I10 - ESSENTIAL (PRIMARY) HYPERTENSION Qualifiers: Hypertension type: essential hypertension Qualified Code(s): I10 - Essential (primary) hypertension (8) Hypothyroid Code(s): E03.9 - HYPOTHYROIDISM, UNSPECIFIED Qualifiers: Hypothyroidism type: unspecified Qualified Code(s): E03.9 - Hypothyroidism, unspecified Assessment/Plan PLAN: O2 as needed AC lasix cultures monitor lytes ,renal function antibiotics as per id DR MASON
[2016-04-29] MEDS: CHOLECALCIFEROL (VITAMIN D3) 400 UNIT TABLET (FP) PO SCH (10:00)
[2016-04-29] MEDS: POLYETHYLENE GLYCOL 3350 119 GM BTL PO SCH ×2 (10:00→21:27)
[2016-04-29] MEDS: ACETYLCYSTEINE 20% 200MG/ML 30 ML VIAL *FOR ORAL / INH USE ONLY PO SCH ×2 (10:00→21:28)
[2016-04-29] MEDS: BACITRACIN 30 GM TUBE TOPICAL OINTMENT TP SCH ×2 (10:00→21:21)
[2016-04-29] MEDS: PANTOPRAZOLE 40 MG TABLET (FP) PO SCH (10:00)
[2016-04-29] MEDS: DOCUSATE SODIUM 100 MG CAPSULE (FP) PO SCH ×2 (10:00→21:27)
[2016-04-29] MEDS: LISINOPRIL 10 MG TABLET (FP) PO SCH (10:00)
[2016-04-29] MEDS ORDERED: PT OWN MED DRAWER 7, Y5N ONE (10:19)
--- NOTE | 2016-04-29 11:23 | PN ---
Progress Note, Physician History of Present Illness: Dyspnea improving with diuresis, back in sinus rhythm. - Current Medication List Current Medications: Active Medications Acetaminophen (Tylenol -) 650 mg PO Q6H PRN PRN Reason: PAIN SCALE 6-10 Last Admin: 04/28/16 15:37 Dose: 650 mg Acetylcysteine (Mucomyst 20 Oral / Inh Use Only*) 1,200 mg PO BID [facility] Stop: 04/29/16 22:01 Last Admin: 04/28/16 22:04 Dose: 1,200 mg Al Hydroxide/Mg Hydroxide (Mylanta Oral Suspension -) 30 ml PO Q6H PRN PRN Reason: DYSPEPSIA Albuterol/Ipratropium (Duoneb -) 1 amp NEB Q6H PRN PRN Reason: SHORTNESS OF BREATH Atorvastatin Calcium (Lipitor -) 10 mg PO HS [facility] Last Admin: 04/28/16 21:49 Dose: 10 mg Bacitracin (Bacitracin -) 1 applic TP BID [facility] Last Admin: 04/28/16 21:49 Dose: 1 applic Cholecalciferol (Vitamin D3 -) 400 unit PO DAILY [facility] Last Admin: 04/28/16 09:50 Dose: 400 unit Diltiazem HCl (Cardizem Injection -) 10 mg IVPUSH Q6H PRN Last Admin: 04/28/16 13:05 Dose: 10 mg Docusate Sodium (Colace -) 100 mg PO BID [facility] Last Admin: 04/28/16 22:04 Dose: Not Given Furosemide (Lasix Injection -) 40 mg IVPUSH BID@0600,1400 [facility] Last Admin: 04/29/16 06:52 Dose: 40 mg Heparin Sodium (Porcine) (Heparin -) 5,000 unit IVPUSH PRN PRN Heparin Sodium (Porcine) (Heparin -) 1,000 unit IVPUSH PRN PRN Heparin Sodium/Dextrose (Heparin Infusion -) 500 mls @ 15 mls/hr IVPB TITR RENETTA ; 750 UNITS/HR PRN Reason: Protocol Last Admin: 04/28/16 21:48 Dose: 15 mls/hr Ceftriaxone Sodium (Rocephin 1gm Ivpb (Pre-Docked)) 50 mls @ 100 mls/hr IVPB DAILY [facility] Last Admin: 04/28/16 15:36 Dose: 100 mls/hr Levothyroxine Sodium (Synthroid -) 100 mcg PO DAILY@0700 [facility] Last Admin: 04/29/16 06:53 Dose: 100 mcg Lisinopril (Prinivil) 10 mg PO DAILY [facility] Last Admin: 04/28/16 09:49 Dose: 10 mg Metoprolol Tartrate (Lopressor -) 50 mg PO TID [facility] Last Admin: 04/29/16 06:52 Dose: 50 mg Morphine Sulfate (Morphine Injection -) 2 mg IVPUSH Q3H PRN PRN Reason: PAIN Last Admin: 04/28/16 17:43 Dose: 2 mg Nitroglycerin (Nitrostat -) 0.4 mg SL PRN PRN Ondansetron HCl (Zofran Odt -) 4 mg SL Q8H PRN PRN Reason: NAUSEA Last Admin: 04/25/16 09:44 Dose: 4 mg Oxycodone HCl (Roxicodone -) 5 mg PO Q4H PRN PRN Reason: PAIN Last Admin: 04/29/16 04:31 Dose: 5 mg Pantoprazole Sodium (Protonix -) 40 mg PO DAILY [facility] Last Admin: 04/28/16 09:48 Dose: 40 mg Polyethylene Glycol (Miralax (For Daily Use) -) 17 gm PO BID [facility] Last Admin: 04/28/16 22:04 Dose: Not Given Ranitidine HCl (Zantac -) 150 mg PO HS [facility] Last Admin: 04/28/16 21:49 Dose: 150 mg - Objective Vital Signs: Vital Signs Temperature 97.9 F 04/29/16 08:09 Pulse Rate 80 04/29/16 08:09 Respiratory Rate 18 04/29/16 08:09 Blood Pressure 117/70 04/29/16 08:09 O2 Sat by Pulse Oximetry (%) 95 04/28/16 21:00 Constitutional: Yes: No Distress, Calm Neck: Yes: Supple Cardiovascular: Yes: Regular Rate and Rhythm Respiratory: Yes: Regular, Diminished, On Nasal O2 Gastrointestinal: Yes: Normal Bowel Sounds, Soft Edema: Yes Edema: LLE: 1+, RLE: 1+ Labs: CBC, BMP 04/29/16 05:45 04/29/16 05:45 INR, PTT INR 1.81 (0.82-1.09) H D 04/29/16 05:45 Problem List - Problems (1) Right patella fracture Code(s): S82.001A - UNSP FRACTURE OF RIGHT PATELLA, INIT FOR CLOS FX Qualifiers: Encounter type: initial encounter Fracture type: closed Fracture morphology: unspecified fracture morphology Fracture alignment: displaced Qualified Code(s): S82.001A - Unspecified fracture of right patella, initial encounter for closed fracture (2) Hypercholesteremia Code(s): E78.0 - PURE HYPERCHOLESTEROLEMIA * DO NOT USE * (3) Hypertension Code(s): I10 - ESSENTIAL (PRIMARY) HYPERTENSION Qualifiers: Hypertension type: essential hypertension Qualified Code(s): I10 - Essential (primary) hypertension (4) Hypothyroid Code(s): E03.9 - HYPOTHYROIDISM, UNSPECIFIED Qualifiers: Hypothyroidism type: unspecified Qualified Code(s): E03.9 - Hypothyroidism, unspecified (5) History of stroke Code(s): Z86.73 - PRSNL HX OF TIA (TIA), AND CEREB INFRC W/O RESID DEFICITS (6) Atrial fibrillation Code(s): I48.91 - UNSPECIFIED ATRIAL FIBRILLATION Qualifiers: Atrial fibrillation type: paroxysmal Qualified Code(s): I48.0 - Paroxysmal atrial fibrillation (7) Diastolic CHF, acute on chronic Code(s): I50.33 - ACUTE ON CHRONIC DIASTOLIC (CONGESTIVE) HEART FAILURE (8) Pleural effusion due to CHF (congestive heart failure) Code(s): I50.9 - HEART FAILURE, UNSPECIFIED (9) Pyelonephritis due to Escherichia coli Code(s): N12 - TUBULO-INTERSTITIAL NEPHRITIS, NOT SPCF ACUTE OR CHRONIC B96.20 - UNSP ESCHERICHIA COLI THE CAUSE OF DISEASES CLASSD ELSWHR (10) Leukocytosis Code(s): D72.829 - ELEVATED WHITE BLOOD CELL COUNT, UNSPECIFIED (11) Hydronephrosis Code(s): N13.30 - UNSPECIFIED HYDRONEPHROSIS Qualifiers: Hydronephrosis type: unspecified Qualified Code(s): N13.30 - Unspecified hydronephrosis Assessment/Plan Chest CTA negative for PE, significant bilateral pleural effusions, bilateral moderate hydronephrosis with perinephric stranding L>R Echo showed mild cLVH, normal LV fxn, mild decreased RV fxn, mild MR, TR, mild- mod AR, small pericardial effusion 1. Patella fracture secondary to mechanical fall post ORIF 2. 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 MVP 5. HTN/HCVD 6. Hyperlipidemia 7. Hypothyroidism 8. History of GERD/esophageal spasm 9. Paroxysmal atrial fibrillation in sinus rhythm 10. Acute on CKD improving 11. Leukocytosis left pyelonephritis ->e. coli 12. Bilateral hydronephrosis r/o obstruction 13. History of right posterior cerebral artery stroke PLAN: 1. Continue Lopressor 50 tid, IV Lopressor or Cardizem as needed for additional rate-control 2. Continue Lisinopril 10 qd and Lipitor 10 qhs 3. Heparin gtt for now, may require thoracentesis 4. IV diuresis with monitor diuretic response, renal fxn and electrolytes, BD, O2 to maintain saO2 5. F/u renal u/s r/o obstruction, pain management, knee immobilizer, PT as tolerated, GI prophylaxis 6. Rocephin course per C&S
--- NOTE | 2016-04-29 11:43 | PN ---
Progress Note, Physician History of Present Illness: Patient notes feeling weak. Ate breakfast, no abd pain, no N/V or diarrhea. Has pain in right leg (OR site). - Current Medication List Current Medications: Active Medications Acetaminophen (Tylenol -) 650 mg PO Q6H PRN PRN Reason: PAIN SCALE 6-10 Last Admin: 04/28/16 15:37 Dose: 650 mg Acetylcysteine (Mucomyst 20 Oral / Inh Use Only*) 1,200 mg PO BID [facility] Stop: 04/29/16 22:01 Last Admin: 04/28/16 22:04 Dose: 1,200 mg Al Hydroxide/Mg Hydroxide (Mylanta Oral Suspension -) 30 ml PO Q6H PRN PRN Reason: DYSPEPSIA Albuterol/Ipratropium (Duoneb -) 1 amp NEB Q6H PRN PRN Reason: SHORTNESS OF BREATH Atorvastatin Calcium (Lipitor -) 10 mg PO HS [facility] Last Admin: 04/28/16 21:49 Dose: 10 mg Bacitracin (Bacitracin -) 1 applic TP BID [facility] Last Admin: 04/28/16 21:49 Dose: 1 applic Cholecalciferol (Vitamin D3 -) 400 unit PO DAILY [facility] Last Admin: 04/28/16 09:50 Dose: 400 unit Diltiazem HCl (Cardizem Injection -) 10 mg IVPUSH Q6H PRN Last Admin: 04/28/16 13:05 Dose: 10 mg Docusate Sodium (Colace -) 100 mg PO BID [facility] Last Admin: 04/28/16 22:04 Dose: Not Given Furosemide (Lasix Injection -) 40 mg IVPUSH BID@0600,1400 [facility] Last Admin: 04/29/16 06:52 Dose: 40 mg Heparin Sodium (Porcine) (Heparin -) 5,000 unit IVPUSH PRN PRN Heparin Sodium (Porcine) (Heparin -) 1,000 unit IVPUSH PRN PRN Heparin Sodium/Dextrose (Heparin Infusion -) 500 mls @ 15 mls/hr IVPB TITR RENETTA ; 750 UNITS/HR PRN Reason: Protocol Last Admin: 04/28/16 21:48 Dose: 15 mls/hr Ceftriaxone Sodium (Rocephin 1gm Ivpb (Pre-Docked)) 50 mls @ 100 mls/hr IVPB DAILY [facility] Last Admin: 04/28/16 15:36 Dose: 100 mls/hr Levothyroxine Sodium (Synthroid -) 100 mcg PO DAILY@0700 [facility] Last Admin: 04/29/16 06:53 Dose: 100 mcg Lisinopril (Prinivil) 10 mg PO DAILY [facility] Last Admin: 04/28/16 09:49 Dose: 10 mg Metoprolol Tartrate (Lopressor -) 50 mg PO TID [facility] Last Admin: 04/29/16 06:52 Dose: 50 mg Morphine Sulfate (Morphine Injection -) 2 mg IVPUSH Q3H PRN PRN Reason: PAIN Last Admin: 04/28/16 17:43 Dose: 2 mg Nitroglycerin (Nitrostat -) 0.4 mg SL PRN PRN Ondansetron HCl (Zofran Odt -) 4 mg SL Q8H PRN PRN Reason: NAUSEA Last Admin: 04/25/16 09:44 Dose: 4 mg Oxycodone HCl (Roxicodone -) 5 mg PO Q4H PRN PRN Reason: PAIN Last Admin: 04/29/16 04:31 Dose: 5 mg Pantoprazole Sodium (Protonix -) 40 mg PO DAILY [facility] Last Admin: 04/28/16 09:48 Dose: 40 mg Polyethylene Glycol (Miralax (For Daily Use) -) 17 gm PO BID [facility] Last Admin: 04/28/16 22:04 Dose: Not Given Ranitidine HCl (Zantac -) 150 mg PO HS [facility] Last Admin: 04/28/16 21:49 Dose: 150 mg - Objective Vital Signs: Vital Signs Temperature 97.9 F 04/29/16 08:09 Pulse Rate 80 04/29/16 08:09 Respiratory Rate 18 04/29/16 08:09 Blood Pressure 117/70 04/29/16 08:09 O2 Sat by Pulse Oximetry (%) 95 04/28/16 21:00 Constitutional: Yes: No Distress, Calm Neck: Yes: Supple, Trachea Midline Cardiovascular: Yes: Regular Rate and Rhythm, S1, S2. No: Murmur Respiratory: Yes: Regular, Diminished (bilaterally) Gastrointestinal: Yes: Normal Bowel Sounds, Soft. No: Distention, Tenderness Extremities: Yes: Other (immobilizer on right leg) Edema: Yes Edema: LLE: Trace, RLE: Trace Labs: CBC, BMP 04/29/16 05:45 04/29/16 05:45 INR, PTT INR 1.81 (0.82-1.09) H D 04/29/16 05:45 Assessment/Plan Current Active Problems Atrial fibrillation (Acute) Diastolic CHF, acute on chronic (Acute) History of stroke (Acute) Hydronephrosis (Acute) Leukocytosis (Acute) Nasal bone fracture (Acute) Pleural effusion due to CHF (congestive heart failure) (Acute) Pre-operative cardiovascular examination (Acute) Pyelonephritis due to Escherichia coli (Acute) Right patella fracture (Acute) -abx for ESBL UTI (ID following), lasix for CHF (cardio following)
--- NOTE | 2016-04-29 12:09 | PN ---
Progress Note, Physician History of Present Illness: Weak appearing No focal complaint Afebrile but with markedly elevated WBC Urine c/s ESBL CT negative for PE but incidental finding hydronephrosis - Current Medication List Current Medications: Active Medications Acetaminophen (Tylenol -) 650 mg PO Q6H PRN PRN Reason: PAIN SCALE 6-10 Last Admin: 04/28/16 15:37 Dose: 650 mg Acetylcysteine (Mucomyst 20 Oral / Inh Use Only*) 1,200 mg PO BID [facility] Stop: 04/29/16 22:01 Last Admin: 04/28/16 22:04 Dose: 1,200 mg Al Hydroxide/Mg Hydroxide (Mylanta Oral Suspension -) 30 ml PO Q6H PRN PRN Reason: DYSPEPSIA Albuterol/Ipratropium (Duoneb -) 1 amp NEB Q6H PRN PRN Reason: SHORTNESS OF BREATH Atorvastatin Calcium (Lipitor -) 10 mg PO HS [facility] Last Admin: 04/28/16 21:49 Dose: 10 mg Bacitracin (Bacitracin -) 1 applic TP BID [facility] Last Admin: 04/28/16 21:49 Dose: 1 applic Cholecalciferol (Vitamin D3 -) 400 unit PO DAILY [facility] Last Admin: 04/28/16 09:50 Dose: 400 unit Diltiazem HCl (Cardizem Injection -) 10 mg IVPUSH Q6H PRN Last Admin: 04/28/16 13:05 Dose: 10 mg Docusate Sodium (Colace -) 100 mg PO BID [facility] Last Admin: 04/28/16 22:04 Dose: Not Given Furosemide (Lasix Injection -) 40 mg IVPUSH BID@0600,1400 [facility] Last Admin: 04/29/16 06:52 Dose: 40 mg Heparin Sodium (Porcine) (Heparin -) 5,000 unit IVPUSH PRN PRN Heparin Sodium (Porcine) (Heparin -) 1,000 unit IVPUSH PRN PRN Heparin Sodium/Dextrose (Heparin Infusion -) 500 mls @ 15 mls/hr IVPB TITR RENETTA ; 750 UNITS/HR PRN Reason: Protocol Last Admin: 04/28/16 21:48 Dose: 15 mls/hr Ertapenem 1 gm/ Sodium (Chloride) 50 mls @ 50 mls/hr IVPB DAILY [facility] Levothyroxine Sodium (Synthroid -) 100 mcg PO DAILY@0700 [facility] Last Admin: 04/29/16 06:53 Dose: 100 mcg Lisinopril (Prinivil) 10 mg PO DAILY [facility] Last Admin: 04/28/16 09:49 Dose: 10 mg Metoprolol Tartrate (Lopressor -) 50 mg PO TID [facility] Last Admin: 04/29/16 06:52 Dose: 50 mg Morphine Sulfate (Morphine Injection -) 2 mg IVPUSH Q3H PRN PRN Reason: PAIN Last Admin: 04/28/16 17:43 Dose: 2 mg Nitroglycerin (Nitrostat -) 0.4 mg SL PRN PRN Ondansetron HCl (Zofran Odt -) 4 mg SL Q8H PRN PRN Reason: NAUSEA Last Admin: 04/25/16 09:44 Dose: 4 mg Oxycodone HCl (Roxicodone -) 5 mg PO Q4H PRN PRN Reason: PAIN Last Admin: 04/29/16 04:31 Dose: 5 mg Pantoprazole Sodium (Protonix -) 40 mg PO DAILY [facility] Last Admin: 04/28/16 09:48 Dose: 40 mg Polyethylene Glycol (Miralax (For Daily Use) -) 17 gm PO BID [facility] Last Admin: 04/28/16 22:04 Dose: Not Given Ranitidine HCl (Zantac -) 150 mg PO HS [facility] Last Admin: 04/28/16 21:49 Dose: 150 mg - Objective Vital Signs: Vital Signs Temperature 97.9 F 04/29/16 08:09 Pulse Rate 80 04/29/16 08:09 Respiratory Rate 18 04/29/16 08:09 Blood Pressure 117/70 04/29/16 08:09 O2 Sat by Pulse Oximetry (%) 95 04/28/16 21:00 Constitutional: Yes: No Distress Eyes: Yes: Conjunctiva Clear Cardiovascular: Yes: S1, S2. No: Regular Rate and Rhythm Respiratory: Yes: Diminished Gastrointestinal: Yes: Normal Bowel Sounds, Soft, Tenderness, Other (sl distended, mild diffuse tenderness) Edema: Yes Labs: CBC, BMP 04/29/16 05:45 04/29/16 05:45 INR, PTT INR 1.81 (0.82-1.09) H D 04/29/16 05:45 Assessment/Plan Leukocytosis- probable source + urine c/s ESBL Possible pyelonephritis PCN / Quinolone allergy For renal ultrasound Substitute ertapenem 1gm IVPB q24h Contact precautions
[2016-04-29] MEDS: ACETAMINOPHEN 325 MG TABLET (FP) PO PRN ×2 (13:09→19:44)
[2016-04-29] MEDS: ERTAPENEM SODIUM 1 GM in SODIUM CHLORIDE 50 ML IVPB SCH (14:47)
[2016-04-29] MEDS: ATORVASTATIN CA 10 MG TABLET (FP) PO SCH (21:26)
[2016-04-29] MEDS: RANITIDINE HCL 150 MG TABLET (FP) PO SCH (21:26)
[2016-04-29] MEDS: HEPARIN INFUSION - 500 ML IVPB SCH (21:28)
[2016-04-30] MEDS: oxyCODONE HCL 5 MG TABLET PO PRN ×4 (01:05→19:50)
[2016-04-30] MEDS: LEVOTHYROXINE NA 100 MCG TABLET (FP) PO SCH (06:57)
[2016-04-30] MEDS: FUROSEMIDE 40 MG/4 ML INJECTABLE VIAL IVPUSH SCH ×2 (06:57→14:46)
[2016-04-30] MEDS: METOPROLOL TARTRATE 25 MG TABLET (FP) PO SCH (06:57)
[2016-04-30 07:37] LABS: BASOPHIL 0.4 % (0-2.0); MCH 30.5 pg (25.7-33.7); MCHC 32.8 g/dl (32.0-36.0); MEAN CELL VOLUME 93.1 fl (80-96); MEAN PLT VOLUME 8.9 fl (7.5-11.1); NEUTROPHILS 87.6 % (42.8-82.8); PLATELET COUNT 446 K/MM3 (134-434); RDW 14.8 % (11.6-15.6); WHITE BLOOD COUNT 22.8 K/mm3 (4.0-10.0)
[2016-04-30 08:21] LABS: ALBUMIN 1.5 g/dl (3.4-5.0); BILIRUBIN,TOTAL 0.7 mg/dL (0.2-1.0); CALCIUM 7.9 mg/dL (8.5-10.1); CREATININE 1.1 mg/dL (0.55-1.02)
[2016-04-30] MEDS ORDERED: PT OWN MED DRAWER 7, Y5N ONE (10:04)
[2016-04-30] MEDS: POTASSIUM CHLORIDE TABS 20 MEQ TABLET.ER (FP) PO SCH ×2 (10:14→14:47)
[2016-04-30] MEDS: PANTOPRAZOLE 40 MG TABLET (FP) PO SCH (10:14)
[2016-04-30] MEDS: DOCUSATE SODIUM 100 MG CAPSULE (FP) PO SCH ×2 (10:15→22:15)
[2016-04-30] MEDS: POLYETHYLENE GLYCOL 3350 119 GM BTL PO SCH ×2 (10:15→22:15)
[2016-04-30] MEDS: BACITRACIN 30 GM TUBE TOPICAL OINTMENT TP SCH ×2 (10:15→22:15)
[2016-04-30] MEDS: LISINOPRIL 10 MG TABLET (FP) PO SCH (10:16)
--- NOTE | 2016-04-30 10:17 | PN ---
Progress Note, Physician History of Present Illness: pulmonary alert,still not feeling well,-resp distress,weak - Current Medication List Current Medications: Active Medications Acetaminophen (Tylenol -) 650 mg PO Q6H PRN PRN Reason: PAIN SCALE 6-10 Last Admin: 04/29/16 19:44 Dose: 650 mg Al Hydroxide/Mg Hydroxide (Mylanta Oral Suspension -) 30 ml PO Q6H PRN PRN Reason: DYSPEPSIA Albuterol/Ipratropium (Duoneb -) 1 amp NEB Q6H PRN PRN Reason: SHORTNESS OF BREATH Atorvastatin Calcium (Lipitor -) 10 mg PO HS [facility] Last Admin: 04/29/16 21:26 Dose: 10 mg Bacitracin (Bacitracin -) 1 applic TP BID [facility] Last Admin: 04/29/16 21:21 Dose: Not Given Cholecalciferol (Vitamin D3 -) 400 unit PO DAILY [facility] Last Admin: 04/29/16 10:00 Dose: 400 unit Diltiazem HCl (Cardizem Injection -) 10 mg IVPUSH Q6H PRN Last Admin: 04/28/16 13:05 Dose: 10 mg Docusate Sodium (Colace -) 100 mg PO BID [facility] Last Admin: 04/29/16 21:27 Dose: 100 mg Furosemide (Lasix Injection -) 40 mg IVPUSH BID@0600,1400 [facility] Last Admin: 04/30/16 06:57 Dose: 40 mg Heparin Sodium (Porcine) (Heparin -) 5,000 unit IVPUSH PRN PRN Heparin Sodium (Porcine) (Heparin -) 1,000 unit IVPUSH PRN PRN Heparin Sodium/Dextrose (Heparin Infusion -) 500 mls @ 15 mls/hr IVPB TITR [facility]ETTA ; 750 UNITS/HR PRN Reason: Protocol Last Admin: 04/29/16 21:28 Dose: 15 mls/hr Ertapenem 1 gm/ Sodium (Chloride) 50 mls @ 50 mls/hr IVPB DAILY [facility] Last Admin: 04/29/16 14:47 Dose: 50 mls/hr Levothyroxine Sodium (Synthroid -) 100 mcg PO DAILY@0700 [facility] Last Admin: 04/30/16 06:57 Dose: 100 mcg Lisinopril (Prinivil) 10 mg PO DAILY [facility] Last Admin: 04/29/16 10:00 Dose: 10 mg Metoprolol Tartrate (Lopressor -) 50 mg PO TID [facility] Last Admin: 04/30/16 06:57 Dose: 50 mg Morphine Sulfate (Morphine Injection -) 2 mg IVPUSH Q3H PRN PRN Reason: PAIN Last Admin: 04/28/16 17:43 Dose: 2 mg Nitroglycerin (Nitrostat -) 0.4 mg SL PRN PRN Ondansetron HCl (Zofran Odt -) 4 mg SL Q8H PRN PRN Reason: NAUSEA Last Admin: 04/25/16 09:44 Dose: 4 mg Oxycodone HCl (Roxicodone -) 5 mg PO Q4H PRN PRN Reason: PAIN Last Admin: 04/30/16 01:05 Dose: 5 mg Pantoprazole Sodium (Protonix -) 40 mg PO DAILY [facility] Last Admin: 04/29/16 10:00 Dose: 40 mg Polyethylene Glycol (Miralax (For Daily Use) -) 17 gm PO BID [facility] Last Admin: 04/29/16 21:27 Dose: 17 gm Potassium Chloride (K-Dur -) 40 meq PO Q4H [facility] Stop: 04/30/16 15:00 Potassium Chloride (K-Dur -) 40 meq PO DAILY [facility] Ranitidine HCl (Zantac -) 150 mg PO HS [facility] Last Admin: 04/29/16 21:26 Dose: 150 mg - Objective Vital Signs: Vital Signs Temperature 97.4 F L 04/30/16 09:00 Pulse Rate 84 04/30/16 09:00 Respiratory Rate 18 04/30/16 09:00 Blood Pressure 116/63 04/30/16 09:00 O2 Sat by Pulse Oximetry (%) 96 04/30/16 08:56 Constitutional: Yes: Well Nourished, Calm Eyes: Yes: WNL HENT: Yes: WNL Neck: Yes: WNL Cardiovascular: Yes: Pulse Irregular, S1, S2 Respiratory: Yes: Diminished Gastrointestinal: Yes: Normal Bowel Sounds, Soft Extremities: Yes: WNL Edema: No Labs: CBC, BMP 04/30/16 05:50 04/30/16 05:50 INR, PTT INR 1.81 (0.82-1.09) H D 04/29/16 05:45 Assessment/Plan Problem List - Problems (1) Atrial fibrillation Code(s): I48.91 - UNSPECIFIED ATRIAL FIBRILLATION Qualifiers: Atrial fibrillation type: paroxysmal Qualified Code(s): I48.0 - Paroxysmal atrial fibrillation (2) History of stroke Code(s): Z86.73 - PRSNL HX OF TIA (TIA), AND CEREB INFRC W/O RESID DEFICITS (3) Nasal bone fracture Code(s): S02.2XXA - FRACTURE OF NASAL BONES, INIT ENCNTR FOR CLOSED FRACTURE (4) Right patella fracture Code(s): S82.001A - UNSP FRACTURE OF RIGHT PATELLA, INIT FOR CLOS FX Qualifiers: Encounter type: initial encounter Fracture type: closed Fracture morphology: unspecified fracture morphology Fracture alignment: displaced Qualified Code(s): S82.001A - Unspecified fracture of right patella, initial encounter for closed fracture (5) GERD (gastroesophageal reflux disease) Code(s): K21.9 - GASTRO-ESOPHAGEAL REFLUX DISEASE WITHOUT ESOPHAGITIS Qualifiers: Esophagitis presence: without esophagitis Qualified Code(s): K21.9 - Gastro-esophageal reflux disease without esophagitis (6) Hypercholesteremia Code(s): E78.0 - PURE HYPERCHOLESTEROLEMIA * DO NOT USE * (7) Hypertension Code(s): I10 - ESSENTIAL (PRIMARY) HYPERTENSION Qualifiers: Hypertension type: essential hypertension Qualified Code(s): I10 - Essential (primary) hypertension (8) Hypothyroid Code(s): E03.9 - HYPOTHYROIDISM, UNSPECIFIED Qualifiers: Hypothyroidism type: unspecified Qualified Code(s): E03.9 - Hypothyroidism, unspecified Assessment/Plan PLAN: O2 as needed AC lasix cultures monitor lytes ,renal function antibiotics as per id daily wts DR MASON
[2016-04-30] MEDS: CHOLECALCIFEROL (VITAMIN D3) 400 UNIT TABLET (FP) PO SCH (10:18)
[2016-04-30] MEDS: ERTAPENEM SODIUM 1 GM in SODIUM CHLORIDE 50 ML IVPB SCH (10:35)
--- NOTE | 2016-04-30 11:48 | PN ---
Progress Note, Physician History of Present Illness: complains mainly of feeling very tired and weak. Still has pain in right knee and leg. - Current Medication List Current Medications: Active Medications Acetaminophen (Tylenol -) 650 mg PO Q6H PRN PRN Reason: PAIN SCALE 6-10 Last Admin: 04/29/16 19:44 Dose: 650 mg Al Hydroxide/Mg Hydroxide (Mylanta Oral Suspension -) 30 ml PO Q6H PRN PRN Reason: DYSPEPSIA Albuterol/Ipratropium (Duoneb -) 1 amp NEB Q6H PRN PRN Reason: SHORTNESS OF BREATH Atorvastatin Calcium (Lipitor -) 10 mg PO HS [facility] Last Admin: 04/29/16 21:26 Dose: 10 mg Bacitracin (Bacitracin -) 1 applic TP BID [facility] Last Admin: 04/30/16 10:15 Dose: Not Given Cholecalciferol (Vitamin D3 -) 400 unit PO DAILY [facility] Last Admin: 04/30/16 10:18 Dose: 400 unit Diltiazem HCl (Cardizem Injection -) 10 mg IVPUSH Q6H PRN Last Admin: 04/28/16 13:05 Dose: 10 mg Docusate Sodium (Colace -) 100 mg PO BID [facility] Last Admin: 04/30/16 10:15 Dose: 100 mg Furosemide (Lasix Injection -) 40 mg IVPUSH BID@0600,1400 [facility] Last Admin: 04/30/16 06:57 Dose: 40 mg Heparin Sodium (Porcine) (Heparin -) 5,000 unit IVPUSH PRN PRN Heparin Sodium (Porcine) (Heparin -) 1,000 unit IVPUSH PRN PRN Heparin Sodium/Dextrose (Heparin Infusion -) 500 mls @ 15 mls/hr IVPB TITR RENETTA ; 750 UNITS/HR PRN Reason: Protocol Last Admin: 04/29/16 21:28 Dose: 15 mls/hr Ertapenem 1 gm/ Sodium (Chloride) 50 mls @ 50 mls/hr IVPB DAILY [facility] Last Admin: 04/29/16 14:47 Dose: 50 mls/hr Levothyroxine Sodium (Synthroid -) 100 mcg PO DAILY@0700 [facility] Last Admin: 04/30/16 06:57 Dose: 100 mcg Lisinopril (Prinivil) 10 mg PO DAILY [facility] Last Admin: 04/30/16 10:16 Dose: 10 mg Metoprolol Tartrate (Lopressor -) 50 mg PO TID [facility] Last Admin: 04/30/16 06:57 Dose: 50 mg Morphine Sulfate (Morphine Injection -) 2 mg IVPUSH Q3H PRN PRN Reason: PAIN Last Admin: 04/28/16 17:43 Dose: 2 mg Nitroglycerin (Nitrostat -) 0.4 mg SL PRN PRN Ondansetron HCl (Zofran Odt -) 4 mg SL Q8H PRN PRN Reason: NAUSEA Last Admin: 04/25/16 09:44 Dose: 4 mg Oxycodone HCl (Roxicodone -) 5 mg PO Q4H PRN PRN Reason: PAIN Last Admin: 04/30/16 10:14 Dose: 5 mg Pantoprazole Sodium (Protonix -) 40 mg PO DAILY [facility] Last Admin: 04/30/16 10:14 Dose: 40 mg Polyethylene Glycol (Miralax (For Daily Use) -) 17 gm PO BID [facility] Last Admin: 04/30/16 10:15 Dose: 17 gm Potassium Chloride (K-Dur -) 40 meq PO Q4H [facility] Stop: 04/30/16 15:00 Last Admin: 04/30/16 10:14 Dose: 40 meq Potassium Chloride (K-Dur -) 40 meq PO DAILY [facility] Ranitidine HCl (Zantac -) 150 mg PO HS [facility] Last Admin: 04/29/16 21:26 Dose: 150 mg - Objective Vital Signs: Vital Signs Temperature 97.4 F L 04/30/16 09:00 Pulse Rate 84 04/30/16 09:00 Respiratory Rate 18 04/30/16 09:00 Blood Pressure 116/63 04/30/16 09:00 O2 Sat by Pulse Oximetry (%) 96 04/30/16 08:56 Constitutional: Yes: No Distress, Calm Cardiovascular: Yes: Regular Rate and Rhythm, S1, S2. No: Murmur Respiratory: Yes: Regular, Diminished. No: Wheezes Gastrointestinal: Yes: Normal Bowel Sounds, Soft. No: Distention, Tenderness Extremities: Yes: Other (immobilizer on right leg) Edema: Yes Edema: LLE: 1+, RLE: 1+ Labs: CBC, BMP 04/30/16 05:50 04/30/16 05:50 INR, PTT INR 1.81 (0.82-1.09) H D 04/29/16 05:45 Assessment/Plan Current Active Problems Atrial fibrillation (Acute) Diastolic CHF, acute on chronic (Acute) History of stroke (Acute) Hydronephrosis (Acute) Leukocytosis (Acute) Nasal bone fracture (Acute) Pleural effusion due to CHF (congestive heart failure) (Acute) Pre-operative cardiovascular examination (Acute) Pyelonephritis due to Escherichia coli (Acute) Right patella fracture (Acute) -cont abx for UTI -cont lasix for CHF (potassium for hypokalemia) -post-op care (right patella ORIF)
--- NOTE | 2016-04-30 13:11 | PN ---
Progress Note, Physician History of Present Illness: Dyspnea improving with diuresis, remains in sinus rhythm. - Current Medication List Current Medications: Active Medications Acetaminophen (Tylenol -) 650 mg PO Q6H PRN PRN Reason: PAIN SCALE 6-10 Last Admin: 04/29/16 19:44 Dose: 650 mg Al Hydroxide/Mg Hydroxide (Mylanta Oral Suspension -) 30 ml PO Q6H PRN PRN Reason: DYSPEPSIA Albuterol/Ipratropium (Duoneb -) 1 amp NEB Q6H PRN PRN Reason: SHORTNESS OF BREATH Atorvastatin Calcium (Lipitor -) 10 mg PO HS [facility] Last Admin: 04/29/16 21:26 Dose: 10 mg Bacitracin (Bacitracin -) 1 applic TP BID [facility] Last Admin: 04/30/16 10:15 Dose: Not Given Cholecalciferol (Vitamin D3 -) 400 unit PO DAILY [facility] Last Admin: 04/30/16 10:18 Dose: 400 unit Diltiazem HCl (Cardizem Injection -) 10 mg IVPUSH Q6H PRN Last Admin: 04/28/16 13:05 Dose: 10 mg Docusate Sodium (Colace -) 100 mg PO BID [facility] Last Admin: 04/30/16 10:15 Dose: 100 mg Furosemide (Lasix Injection -) 40 mg IVPUSH BID@0600,1400 [facility] Last Admin: 04/30/16 06:57 Dose: 40 mg Heparin Sodium (Porcine) (Heparin -) 5,000 unit IVPUSH PRN PRN Heparin Sodium (Porcine) (Heparin -) 1,000 unit IVPUSH PRN PRN Heparin Sodium/Dextrose (Heparin Infusion -) 500 mls @ 15 mls/hr IVPB TITR R[facility]ETTA ; 750 UNITS/HR PRN Reason: Protocol Last Admin: 04/29/16 21:28 Dose: 15 mls/hr Ertapenem 1 gm/ Sodium (Chloride) 50 mls @ 50 mls/hr IVPB DAILY [facility] Last Admin: 04/30/16 10:35 Dose: 50 mls/hr Levothyroxine Sodium (Synthroid -) 100 mcg PO DAILY@0700 [facility] Last Admin: 04/30/16 06:57 Dose: 100 mcg Lisinopril (Prinivil) 10 mg PO DAILY [facility] Last Admin: 04/30/16 10:16 Dose: 10 mg Metoprolol Tartrate (Lopressor -) 50 mg PO TID [facility] Last Admin: 04/30/16 06:57 Dose: 50 mg Morphine Sulfate (Morphine Injection -) 2 mg IVPUSH Q3H PRN PRN Reason: PAIN Last Admin: 04/28/16 17:43 Dose: 2 mg Nitroglycerin (Nitrostat -) 0.4 mg SL PRN PRN Ondansetron HCl (Zofran Odt -) 4 mg SL Q8H PRN PRN Reason: NAUSEA Last Admin: 04/25/16 09:44 Dose: 4 mg Oxycodone HCl (Roxicodone -) 5 mg PO Q4H PRN PRN Reason: PAIN Last Admin: 04/30/16 10:14 Dose: 5 mg Pantoprazole Sodium (Protonix -) 40 mg PO DAILY [facility] Last Admin: 04/30/16 10:14 Dose: 40 mg Polyethylene Glycol (Miralax (For Daily Use) -) 17 gm PO BID [facility] Last Admin: 04/30/16 10:15 Dose: 17 gm Potassium Chloride (K-Dur -) 40 meq PO Q4H [facility] Stop: 04/30/16 15:00 Last Admin: 04/30/16 10:14 Dose: 40 meq Potassium Chloride (K-Dur -) 40 meq PO DAILY [facility] Ranitidine HCl (Zantac -) 150 mg PO HS [facility] Last Admin: 04/29/16 21:26 Dose: 150 mg - Objective Vital Signs: Vital Signs Temperature 97.4 F L 04/30/16 09:00 Pulse Rate 84 04/30/16 09:00 Respiratory Rate 18 04/30/16 09:00 Blood Pressure 116/63 04/30/16 09:00 O2 Sat by Pulse Oximetry (%) 96 04/30/16 08:56 Constitutional: Yes: No Distress, Calm Neck: Yes: Supple Cardiovascular: Yes: Regular Rate and Rhythm Respiratory: Yes: Regular, Diminished, On Nasal O2 Gastrointestinal: Yes: Normal Bowel Sounds, Soft Edema: Yes Edema: LLE: 1+, RLE: 1+ Labs: CBC, BMP 04/30/16 05:50 04/30/16 05:50 INR, PTT INR 1.81 (0.82-1.09) H D 04/29/16 05:45 - ....Imaging EKG: Report Reviewed (Tele: SR) Problem List - Problems (1) Right patella fracture Code(s): S82.001A - UNSP FRACTURE OF RIGHT PATELLA, INIT FOR CLOS FX Qualifiers: Encounter type: initial encounter Fracture type: closed Fracture morphology: unspecified fracture morphology Fracture alignment: displaced Qualified Code(s): S82.001A - Unspecified fracture of right patella, initial encounter for closed fracture (2) Hypercholesteremia Code(s): E78.0 - PURE HYPERCHOLESTEROLEMIA * DO NOT USE * (3) Hypertension Code(s): I10 - ESSENTIAL (PRIMARY) HYPERTENSION Qualifiers: Hypertension type: essential hypertension Qualified Code(s): I10 - Essential (primary) hypertension (4) Hypothyroid Code(s): E03.9 - HYPOTHYROIDISM, UNSPECIFIED Qualifiers: Hypothyroidism type: unspecified Qualified Code(s): E03.9 - Hypothyroidism, unspecified (5) History of stroke Code(s): Z86.73 - PRSNL HX OF TIA (TIA), AND CEREB INFRC W/O RESID DEFICITS (6) Atrial fibrillation Code(s): I48.91 - UNSPECIFIED ATRIAL FIBRILLATION Qualifiers: Atrial fibrillation type: paroxysmal Qualified Code(s): I48.0 - Paroxysmal atrial fibrillation (7) Diastolic CHF, acute on chronic Code(s): I50.33 - ACUTE ON CHRONIC DIASTOLIC (CONGESTIVE) HEART FAILURE (8) Pleural effusion due to CHF (congestive heart failure) Code(s): I50.9 - HEART FAILURE, UNSPECIFIED (9) Pyelonephritis due to Escherichia coli Code(s): N12 - TUBULO-INTERSTITIAL NEPHRITIS, NOT SPCF ACUTE OR CHRONIC B96.20 - UNSP ESCHERICHIA COLI THE CAUSE OF DISEASES CLASSD ELSWHR (10) Leukocytosis Code(s): D72.829 - ELEVATED WHITE BLOOD CELL COUNT, UNSPECIFIED (11) Hydronephrosis Code(s): N13.30 - UNSPECIFIED HYDRONEPHROSIS Qualifiers: Hydronephrosis type: unspecified Qualified Code(s): N13.30 - Unspecified hydronephrosis Assessment/Plan Chest CTA negative for PE, significant bilateral pleural effusions, bilateral moderate hydronephrosis with perinephric stranding L>R Echo showed mild cLVH, normal LV fxn, mild decreased RV fxn, mild MR, TR, mild- mod AR, small pericardial effusion 1. Patella fracture secondary to mechanical fall post ORIF 2. 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 MVP 5. HTN/HCVD 6. Hyperlipidemia 7. Hypothyroidism 8. History of GERD/esophageal spasm 9. Paroxysmal atrial fibrillation in sinus rhythm 10. Acute on CKD improving 11. 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 Mild-mod left hydronephrosis 13. History of right posterior cerebral artery stroke PLAN: 1. Decrease Lopressor 50 bid, continue Lisinopril 10 qd and Lipitor 10 qhs 2. Heparin gtt for now, may require thoracentesis, recheck CXR 3. IV diuresis with monitor diuretic response, renal fxn and electrolytes, replete K, BD, O2 to maintain saO2 4. Renal u/s showed mild-mod left hydro without stones, pain management, knee immobilizer, GI prophylaxis 5. Rocephin changed to ertapenem for e.coli ESBL
[2016-04-30] MEDS: ACETAMINOPHEN 325 MG TABLET (FP) PO PRN ×2 (14:47→19:50)
[2016-04-30] MEDS: ATORVASTATIN CA 10 MG TABLET (FP) PO SCH (22:26)
[2016-04-30] MEDS: METOPROLOL TARTRATE 50 MG TABLET (FP) PO SCH (22:27)
[2016-04-30] MEDS: RANITIDINE HCL 150 MG TABLET (FP) PO SCH (22:27)
[2016-04-30] MEDS: HEPARIN INFUSION - 500 ML IVPB SCH (22:27)
[2016-05-01] MEDS: ACETAMINOPHEN 325 MG TABLET (FP) PO PRN ×2 (06:49→14:08)
[2016-05-01] MEDS: FUROSEMIDE 40 MG/4 ML INJECTABLE VIAL IVPUSH SCH ×2 (06:50→13:55)
[2016-05-01] MEDS: oxyCODONE HCL 5 MG TABLET PO PRN ×3 (06:50→23:19)
[2016-05-01] MEDS: LEVOTHYROXINE NA 100 MCG TABLET (FP) PO SCH (06:50)
[2016-05-01 08:00] LABS: BASOPHIL 0.7 % (0-2.0); EOSINOPHIL 1.7 % (0-4.5); MCH 30.4 pg (25.7-33.7); MCHC 33.2 g/dl (32.0-36.0); MEAN CELL VOLUME 91.6 fl (80-96); MEAN PLT VOLUME 8.5 fl (7.5-11.1); PLATELET COUNT 434 K/MM3 (134-434); RDW 14.9 % (11.6-15.6); WHITE BLOOD COUNT 16.6 K/mm3 (4.0-10.0)
[2016-05-01 08:27] LABS: ALBUMIN 1.5 g/dl (3.4-5.0); ALK PHOS 58 U/L (45-117); ANION GAP 9 (8-16); BILIRUBIN,TOTAL 0.5 mg/dL (0.2-1.0); CALCIUM 7.8 mg/dL (8.5-10.1); CO2 28 mmol/L (21-32); CREATININE 0.8 mg/dL (0.55-1.02); GLUCOSE,RANDOM 90 mg/dL (74-106); SGOT/AST 13 U/L (15-37); SGPT/ALT 10 U/L (12-78)
[2016-05-01] MEDS: PANTOPRAZOLE 40 MG TABLET (FP) PO SCH (10:00)
[2016-05-01] MEDS: ERTAPENEM SODIUM 1 GM in SODIUM CHLORIDE 50 ML IVPB SCH (10:00)
[2016-05-01] MEDS: POTASSIUM CHLORIDE TABS 20 MEQ TABLET.ER (FP) PO SCH (10:01)
[2016-05-01] MEDS: METOPROLOL TARTRATE 50 MG TABLET (FP) PO SCH ×2 (10:01→23:20)
[2016-05-01] MEDS: LISINOPRIL 10 MG TABLET (FP) PO SCH (10:01)
[2016-05-01] MEDS: BACITRACIN 30 GM TUBE TOPICAL OINTMENT TP SCH ×2 (10:02→23:19)
[2016-05-01] MEDS: DOCUSATE SODIUM 100 MG CAPSULE (FP) PO SCH ×2 (10:03→23:19)
[2016-05-01] MEDS: CHOLECALCIFEROL (VITAMIN D3) 400 UNIT TABLET (FP) PO SCH (10:03)
[2016-05-01] MEDS: POLYETHYLENE GLYCOL 3350 119 GM BTL PO SCH ×2 (10:03→23:20)
[2016-05-01] MEDS: HEPARIN INFUSION - 500 ML IVPB SCH (10:04)
--- NOTE | 2016-05-01 10:19 | PN ---
Progress Note, Physician History of Present Illness: pulmonary alert,weak,less dyspneic - Current Medication List Current Medications: Active Medications Acetaminophen (Tylenol -) 650 mg PO Q6H PRN PRN Reason: PAIN SCALE 6-10 Last Admin: 05/01/16 06:49 Dose: 650 mg Al Hydroxide/Mg Hydroxide (Mylanta Oral Suspension -) 30 ml PO Q6H PRN PRN Reason: DYSPEPSIA Albuterol/Ipratropium (Duoneb -) 1 amp NEB Q6H PRN PRN Reason: SHORTNESS OF BREATH Atorvastatin Calcium (Lipitor -) 10 mg PO HS [facility] Last Admin: 04/30/16 22:26 Dose: 10 mg Bacitracin (Bacitracin -) 1 applic TP BID [facility] Last Admin: 04/30/16 22:15 Dose: Not Given Cholecalciferol (Vitamin D3 -) 400 unit PO DAILY [facility] Last Admin: 04/30/16 10:18 Dose: 400 unit Diltiazem HCl (Cardizem Injection -) 10 mg IVPUSH Q6H PRN Last Admin: 04/28/16 13:05 Dose: 10 mg Docusate Sodium (Colace -) 100 mg PO BID [facility] Last Admin: 04/30/16 22:15 Dose: Not Given Furosemide (Lasix Injection -) 40 mg IVPUSH BID@0600,1400 [facility] Last Admin: 05/01/16 06:50 Dose: 40 mg Heparin Sodium (Porcine) (Heparin -) 5,000 unit IVPUSH PRN PRN Heparin Sodium (Porcine) (Heparin -) 1,000 unit IVPUSH PRN PRN Heparin Sodium/Dextrose (Heparin Infusion -) 500 mls @ 15 mls/hr IVPB TITR RENETTA ; 750 UNITS/HR PRN Reason: Protocol Last Admin: 04/30/16 22:27 Dose: 15 mls/hr Ertapenem 1 gm/ Sodium (Chloride) 50 mls @ 50 mls/hr IVPB DAILY [facility] Last Admin: 04/30/16 10:35 Dose: 50 mls/hr Levothyroxine Sodium (Synthroid -) 100 mcg PO DAILY@0700 [facility] Last Admin: 05/01/16 06:50 Dose: 100 mcg Lisinopril (Prinivil) 10 mg PO DAILY [facility] Last Admin: 04/30/16 10:16 Dose: 10 mg Metoprolol Tartrate (Lopressor -) 50 mg PO BID [facility] Last Admin: 04/30/16 22:27 Dose: 50 mg Morphine Sulfate (Morphine Injection -) 2 mg IVPUSH Q3H PRN PRN Reason: PAIN Last Admin: 04/28/16 17:43 Dose: 2 mg Nitroglycerin (Nitrostat -) 0.4 mg SL PRN PRN Ondansetron HCl (Zofran Odt -) 4 mg SL Q8H PRN PRN Reason: NAUSEA Last Admin: 04/25/16 09:44 Dose: 4 mg Oxycodone HCl (Roxicodone -) 5 mg PO Q4H PRN PRN Reason: PAIN Last Admin: 05/01/16 06:50 Dose: 5 mg Pantoprazole Sodium (Protonix -) 40 mg PO DAILY [facility] Last Admin: 04/30/16 10:14 Dose: 40 mg Polyethylene Glycol (Miralax (For Daily Use) -) 17 gm PO BID [facility] Last Admin: 04/30/16 22:15 Dose: Not Given Potassium Chloride (K-Dur -) 40 meq PO DAILY [facility] Ranitidine HCl (Zantac -) 150 mg PO HS [facility] Last Admin: 04/30/16 22:27 Dose: 150 mg - Objective Vital Signs: Vital Signs Temperature 98.2 F 05/01/16 09:00 Pulse Rate 76 05/01/16 09:00 Respiratory Rate 14 05/01/16 09:00 Blood Pressure 124/64 05/01/16 09:00 O2 Sat by Pulse Oximetry (%) 96 04/30/16 08:56 Constitutional: Yes: Calm, Thin Eyes: Yes: WNL HENT: Yes: WNL Neck: Yes: WNL Cardiovascular: Yes: Pulse Irregular, S1, S2 Respiratory: Yes: Diminished, Rales (bibasilar rales) Gastrointestinal: Yes: Normal Bowel Sounds, Soft Extremities: Yes: WNL Edema: No Labs: CBC, BMP 05/01/16 05:48 05/01/16 05:48 INR, PTT INR 1.81 (0.82-1.09) H D 04/29/16 05:45 Assessment/Plan Problem List - Problems (1) Atrial fibrillation Code(s): I48.91 - UNSPECIFIED ATRIAL FIBRILLATION Qualifiers: Atrial fibrillation type: paroxysmal Qualified Code(s): I48.0 - Paroxysmal atrial fibrillation (2) History of stroke Code(s): Z86.73 - PRSNL HX OF TIA (TIA), AND CEREB INFRC W/O RESID DEFICITS (3) Nasal bone fracture Code(s): S02.2XXA - FRACTURE OF NASAL BONES, INIT ENCNTR FOR CLOSED FRACTURE (4) Right patella fracture Code(s): S82.001A - UNSP FRACTURE OF RIGHT PATELLA, INIT FOR CLOS FX Qualifiers: Encounter type: initial encounter Fracture type: closed Fracture morphology: unspecified fracture morphology Fracture alignment: displaced Qualified Code(s): S82.001A - Unspecified fracture of right patella, initial encounter for closed fracture (5) GERD (gastroesophageal reflux disease) Code(s): K21.9 - GASTRO-ESOPHAGEAL REFLUX DISEASE WITHOUT ESOPHAGITIS Qualifiers: Esophagitis presence: without esophagitis Qualified Code(s): K21.9 - Gastro-esophageal reflux disease without esophagitis (6) Hypercholesteremia Code(s): E78.0 - PURE HYPERCHOLESTEROLEMIA * DO NOT USE * (7) Hypertension Code(s): I10 - ESSENTIAL (PRIMARY) HYPERTENSION Qualifiers: Hypertension type: essential hypertension Qualified Code(s): I10 - Essential (primary) hypertension (8) Hypothyroid Code(s): E03.9 - HYPOTHYROIDISM, UNSPECIFIED Qualifiers: Hypothyroidism type: unspecified Qualified Code(s): E03.9 - Hypothyroidism, unspecified Assessment/Plan PLAN: O2 as needed AC lasix monitor lytes ,renal function antibiotics as per id daily wts DR MASON
--- NOTE | 2016-05-01 11:11 | PN ---
Progress Note, Physician History of Present Illness: Still feels very weak, but notes breathing feeling OK. Has a little less swelling in legs. - Current Medication List Current Medications: Active Medications Acetaminophen (Tylenol -) 650 mg PO Q6H PRN PRN Reason: PAIN SCALE 6-10 Last Admin: 05/01/16 06:49 Dose: 650 mg Al Hydroxide/Mg Hydroxide (Mylanta Oral Suspension -) 30 ml PO Q6H PRN PRN Reason: DYSPEPSIA Albuterol/Ipratropium (Duoneb -) 1 amp NEB Q6H PRN PRN Reason: SHORTNESS OF BREATH Atorvastatin Calcium (Lipitor -) 10 mg PO HS [facility] Last Admin: 04/30/16 22:26 Dose: 10 mg Bacitracin (Bacitracin -) 1 applic TP BID [facility] Last Admin: 05/01/16 10:02 Dose: Not Given Cholecalciferol (Vitamin D3 -) 400 unit PO DAILY [facility] Last Admin: 05/01/16 10:03 Dose: 400 unit Diltiazem HCl (Cardizem Injection -) 10 mg IVPUSH Q6H PRN Last Admin: 04/28/16 13:05 Dose: 10 mg Docusate Sodium (Colace -) 100 mg PO BID [facility] Last Admin: 05/01/16 10:03 Dose: 100 mg Furosemide (Lasix Injection -) 40 mg IVPUSH BID@0600,1400 [facility] Last Admin: 05/01/16 06:50 Dose: 40 mg Heparin Sodium (Porcine) (Heparin -) 5,000 unit IVPUSH PRN PRN Heparin Sodium (Porcine) (Heparin -) 1,000 unit IVPUSH PRN PRN Heparin Sodium/Dextrose (Heparin Infusion -) 500 mls @ 15 mls/hr IVPB TITR RENETTA ; 750 UNITS/HR PRN Reason: Protocol Last Admin: 05/01/16 10:04 Dose: 15 mls/hr Ertapenem 1 gm/ Sodium (Chloride) 50 mls @ 50 mls/hr IVPB DAILY [facility] Last Admin: 05/01/16 10:00 Dose: 50 mls/hr Levothyroxine Sodium (Synthroid -) 100 mcg PO DAILY@0700 [facility] Last Admin: 05/01/16 06:50 Dose: 100 mcg Lisinopril (Prinivil) 10 mg PO DAILY [facility] Last Admin: 05/01/16 10:01 Dose: 10 mg Metoprolol Tartrate (Lopressor -) 50 mg PO BID [facility] Last Admin: 05/01/16 10:01 Dose: 50 mg Morphine Sulfate (Morphine Injection -) 2 mg IVPUSH Q3H PRN PRN Reason: PAIN Last Admin: 04/28/16 17:43 Dose: 2 mg Nitroglycerin (Nitrostat -) 0.4 mg SL PRN PRN Ondansetron HCl (Zofran Odt -) 4 mg SL Q8H PRN PRN Reason: NAUSEA Last Admin: 04/25/16 09:44 Dose: 4 mg Oxycodone HCl (Roxicodone -) 5 mg PO Q4H PRN PRN Reason: PAIN Last Admin: 05/01/16 06:50 Dose: 5 mg Pantoprazole Sodium (Protonix -) 40 mg PO DAILY [facility] Last Admin: 05/01/16 10:00 Dose: 40 mg Polyethylene Glycol (Miralax (For Daily Use) -) 17 gm PO BID [facility] Last Admin: 05/01/16 10:03 Dose: 17 gm Potassium Chloride (K-Dur -) 40 meq PO DAILY [facility] Last Admin: 05/01/16 10:01 Dose: 40 meq Ranitidine HCl (Zantac -) 150 mg PO HS [facility] Last Admin: 04/30/16 22:27 Dose: 150 mg - Objective Vital Signs: Vital Signs Temperature 98.2 F 05/01/16 09:00 Pulse Rate 76 05/01/16 09:00 Respiratory Rate 14 05/01/16 09:00 Blood Pressure 124/64 05/01/16 09:00 O2 Sat by Pulse Oximetry (%) 96 04/30/16 08:56 Constitutional: Yes: No Distress, Calm Cardiovascular: Yes: Pulse Irregular, S1, S2. No: Murmur Respiratory: Yes: Regular, Diminished (bilaterally) Gastrointestinal: Yes: Normal Bowel Sounds, Soft, Distention (mild). No: Tenderness Extremities: Yes: Other (immobilizer right leg) Edema: Yes Edema: LLE: 1+, RLE: 1+ Labs: CBC, BMP 05/01/16 05:48 05/01/16 05:48 INR, PTT INR 1.81 (0.82-1.09) H D 04/29/16 05:45 Assessment/Plan Current Active Problems Atrial fibrillation (Acute) Diastolic CHF, acute on chronic (Acute) History of stroke (Acute) Hydronephrosis (Acute) Leukocytosis (Acute) Nasal bone fracture (Acute) Pleural effusion due to CHF (congestive heart failure) (Acute) Pre-operative cardiovascular examination (Acute) Pyelonephritis due to Escherichia coli (Acute) Right patella fracture (Acute) -cont abx for UTI -cont lasix for CHF -post-op care (right patella ORIF)
--- NOTE | 2016-05-01 11:14 | PN ---
Progress Note, Physician History of Present Illness: Dyspnea and LE edema improving with diuresis, remains in sinus rhythm, feels weak. - Current Medication List Current Medications: Active Medications Acetaminophen (Tylenol -) 650 mg PO Q6H PRN PRN Reason: PAIN SCALE 6-10 Last Admin: 05/01/16 06:49 Dose: 650 mg Al Hydroxide/Mg Hydroxide (Mylanta Oral Suspension -) 30 ml PO Q6H PRN PRN Reason: DYSPEPSIA Albuterol/Ipratropium (Duoneb -) 1 amp NEB Q6H PRN PRN Reason: SHORTNESS OF BREATH Atorvastatin Calcium (Lipitor -) 10 mg PO HS [facility] Last Admin: 04/30/16 22:26 Dose: 10 mg Bacitracin (Bacitracin -) 1 applic TP BID [facility] Last Admin: 05/01/16 10:02 Dose: Not Given Cholecalciferol (Vitamin D3 -) 400 unit PO DAILY [facility] Last Admin: 05/01/16 10:03 Dose: 400 unit Diltiazem HCl (Cardizem Injection -) 10 mg IVPUSH Q6H PRN Last Admin: 04/28/16 13:05 Dose: 10 mg Docusate Sodium (Colace -) 100 mg PO BID [facility] Last Admin: 05/01/16 10:03 Dose: 100 mg Furosemide (Lasix Injection -) 40 mg IVPUSH BID@0600,1400 [facility] Last Admin: 05/01/16 06:50 Dose: 40 mg Heparin Sodium (Porcine) (Heparin -) 5,000 unit IVPUSH PRN PRN Heparin Sodium (Porcine) (Heparin -) 1,000 unit IVPUSH PRN PRN Heparin Sodium/Dextrose (Heparin Infusion -) 500 mls @ 15 mls/hr IVPB TITR RENETTA ; 750 UNITS/HR PRN Reason: Protocol Last Admin: 05/01/16 10:04 Dose: 15 mls/hr Ertapenem 1 gm/ Sodium (Chloride) 50 mls @ 50 mls/hr IVPB DAILY [facility] Last Admin: 05/01/16 10:00 Dose: 50 mls/hr Levothyroxine Sodium (Synthroid -) 100 mcg PO DAILY@0700 [facility] Last Admin: 05/01/16 06:50 Dose: 100 mcg Lisinopril (Prinivil) 10 mg PO DAILY [facility] Last Admin: 05/01/16 10:01 Dose: 10 mg Metoprolol Tartrate (Lopressor -) 50 mg PO BID [facility] Last Admin: 05/01/16 10:01 Dose: 50 mg Morphine Sulfate (Morphine Injection -) 2 mg IVPUSH Q3H PRN PRN Reason: PAIN Last Admin: 04/28/16 17:43 Dose: 2 mg Nitroglycerin (Nitrostat -) 0.4 mg SL PRN PRN Ondansetron HCl (Zofran Odt -) 4 mg SL Q8H PRN PRN Reason: NAUSEA Last Admin: 04/25/16 09:44 Dose: 4 mg Oxycodone HCl (Roxicodone -) 5 mg PO Q4H PRN PRN Reason: PAIN Last Admin: 05/01/16 06:50 Dose: 5 mg Pantoprazole Sodium (Protonix -) 40 mg PO DAILY [facility] Last Admin: 05/01/16 10:00 Dose: 40 mg Polyethylene Glycol (Miralax (For Daily Use) -) 17 gm PO BID [facility] Last Admin: 05/01/16 10:03 Dose: 17 gm Potassium Chloride (K-Dur -) 40 meq PO DAILY [facility] Last Admin: 05/01/16 10:01 Dose: 40 meq Ranitidine HCl (Zantac -) 150 mg PO HS [facility] Last Admin: 04/30/16 22:27 Dose: 150 mg - Objective Vital Signs: Vital Signs Temperature 98.2 F 05/01/16 09:00 Pulse Rate 76 05/01/16 09:00 Respiratory Rate 14 05/01/16 09:00 Blood Pressure 124/64 05/01/16 09:00 O2 Sat by Pulse Oximetry (%) 96 04/30/16 08:56 Constitutional: Yes: No Distress, Calm Neck: Yes: Supple Cardiovascular: Yes: Regular Rate and Rhythm Respiratory: Yes: Regular, Diminished, On Nasal O2 Gastrointestinal: Yes: Normal Bowel Sounds, Soft Edema: No Labs: CBC, BMP 05/01/16 05:48 05/01/16 05:48 INR, PTT INR 1.81 (0.82-1.09) H D 04/29/16 05:45 - ....Imaging Chest X-ray: Report Reviewed (CHF and bilateral effusions) Problem List - Problems (1) Right patella fracture Code(s): S82.001A - UNSP FRACTURE OF RIGHT PATELLA, INIT FOR CLOS FX Qualifiers: Encounter type: initial encounter Fracture type: closed Fracture morphology: unspecified fracture morphology Fracture alignment: displaced Qualified Code(s): S82.001A - Unspecified fracture of right patella, initial encounter for closed fracture (2) Hypercholesteremia Code(s): E78.0 - PURE HYPERCHOLESTEROLEMIA * DO NOT USE * (3) Hypertension Code(s): I10 - ESSENTIAL (PRIMARY) HYPERTENSION Qualifiers: Hypertension type: essential hypertension Qualified Code(s): I10 - Essential (primary) hypertension (4) Hypothyroid Code(s): E03.9 - HYPOTHYROIDISM, UNSPECIFIED Qualifiers: Hypothyroidism type: unspecified Qualified Code(s): E03.9 - Hypothyroidism, unspecified (5) History of stroke Code(s): Z86.73 - PRSNL HX OF TIA (TIA), AND CEREB INFRC W/O RESID DEFICITS (6) Atrial fibrillation Code(s): I48.91 - UNSPECIFIED ATRIAL FIBRILLATION Qualifiers: Atrial fibrillation type: paroxysmal Qualified Code(s): I48.0 - Paroxysmal atrial fibrillation (7) Diastolic CHF, acute on chronic Code(s): I50.33 - ACUTE ON CHRONIC DIASTOLIC (CONGESTIVE) HEART FAILURE (8) Pleural effusion due to CHF (congestive heart failure) Code(s): I50.9 - HEART FAILURE, UNSPECIFIED (9) Pyelonephritis due to Escherichia coli Code(s): N12 - TUBULO-INTERSTITIAL NEPHRITIS, NOT SPCF ACUTE OR CHRONIC B96.20 - UNSP ESCHERICHIA COLI THE CAUSE OF DISEASES CLASSD ELSWHR (10) Leukocytosis Code(s): D72.829 - ELEVATED WHITE BLOOD CELL COUNT, UNSPECIFIED (11) Hydronephrosis Code(s): N13.30 - UNSPECIFIED HYDRONEPHROSIS Qualifiers: Hydronephrosis type: unspecified Qualified Code(s): N13.30 - Unspecified hydronephrosis Assessment/Plan Chest CTA negative for PE, significant bilateral pleural effusions, bilateral moderate hydronephrosis with perinephric stranding L>R Echo showed mild cLVH, normal LV fxn, mild decreased RV fxn, mild MR, TR, mild- mod AR, small pericardial effusion Renal u/s showed mild-mod left hydro without stones 1. Patella fracture secondary to mechanical fall post ORIF 2. 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 MVP 5. HTN/HCVD 6. Hyperlipidemia 7. Hypothyroidism 8. History of GERD/esophageal spasm 9. Paroxysmal atrial fibrillation in sinus rhythm 10. Acute on CKD resolved 11. 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 Mild-mod left hydronephrosis 13. History of right posterior cerebral artery stroke PLAN: 1. Continue Lopressor 50 bid, Lisinopril 10 qd and Lipitor 10 qhs 2. Heparin gtt->Eliquis 2.5 bid (age>80, wt<60 kg, Cr<1.5) 3. Extra dose of IV diuresis with monitor diuretic response, renal fxn and electrolytes, replete K, BD, O2 to maintain saO2 4. Pain management, knee immobilizer, GI prophylaxis, OOB to chair if possible 5. Rocephin changed to ertapenem for e.coli ESBL
--- NOTE | 2016-05-01 12:02 | PN ---
Progress Note, Physician History of Present Illness: C/O R knee pain No c/o dysuria/ hemtauria No suprapubic pain No fever/ chills WBC improved - Current Medication List Current Medications: Active Medications Acetaminophen (Tylenol -) 650 mg PO Q6H PRN PRN Reason: PAIN SCALE 6-10 Last Admin: 05/01/16 06:49 Dose: 650 mg Al Hydroxide/Mg Hydroxide (Mylanta Oral Suspension -) 30 ml PO Q6H PRN PRN Reason: DYSPEPSIA Albuterol/Ipratropium (Duoneb -) 1 amp NEB Q6H PRN PRN Reason: SHORTNESS OF BREATH Apixaban (Eliquis -) 2.5 mg PO BID [facility] Atorvastatin Calcium (Lipitor -) 10 mg PO HS [facility] Last Admin: 04/30/16 22:26 Dose: 10 mg Bacitracin (Bacitracin -) 1 applic TP BID [facility] Last Admin: 05/01/16 10:02 Dose: Not Given Cholecalciferol (Vitamin D3 -) 400 unit PO DAILY [facility] Last Admin: 05/01/16 10:03 Dose: 400 unit Diltiazem HCl (Cardizem Injection -) 10 mg IVPUSH Q6H PRN Last Admin: 04/28/16 13:05 Dose: 10 mg Docusate Sodium (Colace -) 100 mg PO BID [facility] Last Admin: 05/01/16 10:03 Dose: 100 mg Furosemide (Lasix Injection -) 40 mg IVPUSH BID@0600,1400 [facility] Last Admin: 05/01/16 06:50 Dose: 40 mg Furosemide (Lasix Injection -) 40 mg IVPB ONCE ONE Stop: 05/01/16 17:01 Ertapenem 1 gm/ Sodium (Chloride) 50 mls @ 50 mls/hr IVPB DAILY [facility] Last Admin: 05/01/16 10:00 Dose: 50 mls/hr Levothyroxine Sodium (Synthroid -) 100 mcg PO DAILY@0700 [facility] Last Admin: 05/01/16 06:50 Dose: 100 mcg Lisinopril (Prinivil) 10 mg PO DAILY [facility] Last Admin: 05/01/16 10:01 Dose: 10 mg Metoprolol Tartrate (Lopressor -) 50 mg PO BID [facility] Last Admin: 05/01/16 10:01 Dose: 50 mg Morphine Sulfate (Morphine Injection -) 2 mg IVPUSH Q3H PRN PRN Reason: PAIN Last Admin: 04/28/16 17:43 Dose: 2 mg Nitroglycerin (Nitrostat -) 0.4 mg SL PRN PRN Ondansetron HCl (Zofran Odt -) 4 mg SL Q8H PRN PRN Reason: NAUSEA Last Admin: 04/25/16 09:44 Dose: 4 mg Oxycodone HCl (Roxicodone -) 5 mg PO Q4H PRN PRN Reason: PAIN Last Admin: 05/01/16 06:50 Dose: 5 mg Pantoprazole Sodium (Protonix -) 40 mg PO DAILY [facility] Last Admin: 05/01/16 10:00 Dose: 40 mg Polyethylene Glycol (Miralax (For Daily Use) -) 17 gm PO BID [facility] Last Admin: 05/01/16 10:03 Dose: 17 gm Potassium Chloride (K-Dur -) 40 meq PO DAILY [facility] Last Admin: 05/01/16 10:01 Dose: 40 meq Potassium Chloride (K-Dur -) 40 meq PO ONCE ONE Stop: 05/01/16 14:01 Ranitidine HCl (Zantac -) 150 mg PO HS [facility] Last Admin: 04/30/16 22:27 Dose: 150 mg - Objective Vital Signs: Vital Signs Temperature 98.2 F 05/01/16 09:00 Pulse Rate 76 05/01/16 09:00 Respiratory Rate 14 05/01/16 09:00 Blood Pressure 124/64 05/01/16 09:00 O2 Sat by Pulse Oximetry (%) 96 04/30/16 08:56 Constitutional: Yes: No Distress Eyes: Yes: Conjunctiva Clear Cardiovascular: Yes: Regular Rate and Rhythm, S1, S2 Respiratory: Yes: CTA Bilaterally Gastrointestinal: Yes: Normal Bowel Sounds, Soft. No: Tenderness Extremities: Yes: Other (immobilizing splint in place) Labs: CBC, BMP 05/01/16 05:48 05/01/16 05:48 INR, PTT INR 1.81 (0.82-1.09) H D 04/29/16 05:45 Assessment/Plan Leukocytosis- probable source- improved + urine c/s ESBL Possible pyelonephritis PCN / Quinolone allergy Continue ertapenem 1gm IVPB q24h Contact precautions
[2016-05-01] MEDS: APIXABAN 2.5 MG TABLET PO SCH ×2 (13:50→23:19)
[2016-05-01] MEDS ORDERED: POTASSIUM CHLORIDE TABS 20 MEQ TABLET.ER (FP) PO ONE (14:00)
[2016-05-01] MEDS ORDERED: FUROSEMIDE 40 MG/4 ML INJECTABLE VIAL IVPB ONE (17:00)
[2016-05-01] MEDS: morphine CARPU-JECT 2 MG/1 ML DISP.SYRIN IVPUSH PRN (18:02)
[2016-05-01] MEDS: RANITIDINE HCL 150 MG TABLET (FP) PO SCH (23:20)
[2016-05-01] MEDS: ATORVASTATIN CA 10 MG TABLET (FP) PO SCH (23:20)
[2016-05-02] MEDS: FUROSEMIDE 40 MG/4 ML INJECTABLE VIAL IVPUSH SCH ×2 (06:16→15:15)
[2016-05-02] MEDS: LEVOTHYROXINE NA 100 MCG TABLET (FP) PO SCH (06:16)
[2016-05-02 07:44] LABS: MCH 29.8 pg (25.7-33.7); MCHC 32.2 g/dl (32.0-36.0); MEAN CELL VOLUME 92.5 fl (80-96); MEAN PLT VOLUME 8.4 fl (7.5-11.1); PLATELET COUNT 446 K/MM3 (134-434); RDW 14.8 % (11.6-15.6); WHITE BLOOD COUNT 14.2 K/mm3 (4.0-10.0)
[2016-05-02] MEDS: ACETAMINOPHEN 325 MG TABLET (FP) PO PRN ×2 (08:10→14:43)
[2016-05-02] MEDS: oxyCODONE HCL 5 MG TABLET PO PRN ×2 (08:10→14:43)
[2016-05-02 08:50] LABS: ALBUMIN 1.5 g/dl (3.4-5.0); CALCIUM 8.1 mg/dL (8.5-10.1)
[2016-05-02 08:52] LABS: BILIRUBIN,TOTAL 0.5 mg/dL (0.2-1.0); CREATININE 0.9 mg/dL (0.55-1.02); TOT PROT 5.2 g/dl (6.4-8.2)
[2016-05-02] MEDS: METOPROLOL TARTRATE 50 MG TABLET (FP) PO SCH ×2 (10:07→22:04)
[2016-05-02] MEDS: PANTOPRAZOLE 40 MG TABLET (FP) PO SCH (10:07)
[2016-05-02] MEDS: APIXABAN 2.5 MG TABLET PO SCH ×2 (10:08→23:00)
[2016-05-02] MEDS: LISINOPRIL 10 MG TABLET (FP) PO SCH (10:08)
[2016-05-02] MEDS: DOCUSATE SODIUM 100 MG CAPSULE (FP) PO SCH ×2 (10:08→22:04)
[2016-05-02] MEDS: BACITRACIN 30 GM TUBE TOPICAL OINTMENT TP SCH ×2 (10:08→22:06)
[2016-05-02] MEDS: POLYETHYLENE GLYCOL 3350 119 GM BTL PO SCH ×2 (10:08→22:00)
[2016-05-02] MEDS: POTASSIUM CHLORIDE TABS 20 MEQ TABLET.ER (FP) PO SCH (10:08)
[2016-05-02] MEDS ORDERED: PT OWN MED DRAWER 7, Y5N ONE (10:10)
[2016-05-02] MEDS: ERTAPENEM SODIUM 1 GM in SODIUM CHLORIDE 50 ML IVPB SCH (10:11)
[2016-05-02] MEDS: CHOLECALCIFEROL (VITAMIN D3) 400 UNIT TABLET (FP) PO SCH (10:11)
--- NOTE | 2016-05-02 10:35 | PN ---
Progress Note, Physician Chief Complaint: Ms Mei says she is feeling better, but is very weak. Still with significant pain in her knee. No cp, sob, n/v. - Current Medication List Current Medications: Active Medications Acetaminophen (Tylenol -) 650 mg PO Q6H PRN PRN Reason: PAIN SCALE 6-10 Last Admin: 05/02/16 08:10 Dose: 650 mg Al Hydroxide/Mg Hydroxide (Mylanta Oral Suspension -) 30 ml PO Q6H PRN PRN Reason: DYSPEPSIA Albuterol/Ipratropium (Duoneb -) 1 amp NEB Q6H PRN PRN Reason: SHORTNESS OF BREATH Apixaban (Eliquis -) 2.5 mg PO BID [facility] Last Admin: 05/02/16 10:08 Dose: 2.5 mg Atorvastatin Calcium (Lipitor -) 10 mg PO HS [facility] Last Admin: 05/01/16 23:20 Dose: 10 mg Bacitracin (Bacitracin -) 1 applic TP BID [facility] Last Admin: 05/02/16 10:08 Dose: 1 applic Cholecalciferol (Vitamin D3 -) 400 unit PO DAILY [facility] Last Admin: 05/02/16 10:11 Dose: 400 unit Diltiazem HCl (Cardizem Injection -) 10 mg IVPUSH Q6H PRN Last Admin: 04/28/16 13:05 Dose: 10 mg Docusate Sodium (Colace -) 100 mg PO BID [facility] Last Admin: 05/02/16 10:08 Dose: 100 mg Furosemide (Lasix Injection -) 40 mg IVPUSH BID@0600,1400 [facility] Last Admin: 05/02/16 06:16 Dose: 40 mg Ertapenem 1 gm/ Sodium (Chloride) 50 mls @ 50 mls/hr IVPB DAILY [facility] Last Admin: 05/02/16 10:11 Dose: 50 mls/hr Levothyroxine Sodium (Synthroid -) 100 mcg PO DAILY@0700 [facility] Last Admin: 05/02/16 06:16 Dose: 100 mcg Lisinopril (Prinivil) 10 mg PO DAILY [facility] Last Admin: 05/02/16 10:08 Dose: 10 mg Metoprolol Tartrate (Lopressor -) 50 mg PO BID [facility] Last Admin: 05/02/16 10:07 Dose: 50 mg Nitroglycerin (Nitrostat -) 0.4 mg SL PRN PRN Ondansetron HCl (Zofran Odt -) 4 mg SL Q8H PRN PRN Reason: NAUSEA Last Admin: 04/25/16 09:44 Dose: 4 mg Oxycodone HCl (Roxicodone -) 5 mg PO Q4H PRN PRN Reason: PAIN Last Admin: 05/02/16 08:10 Dose: 5 mg Pantoprazole Sodium (Protonix -) 40 mg PO DAILY [facility] Last Admin: 05/02/16 10:07 Dose: 40 mg Polyethylene Glycol (Miralax (For Daily Use) -) 17 gm PO BID [facility] Last Admin: 05/02/16 10:08 Dose: 17 gm Potassium Chloride (K-Dur -) 40 meq PO DAILY [facility] Last Admin: 05/02/16 10:08 Dose: 40 meq Ranitidine HCl (Zantac -) 150 mg PO HS [facility] Last Admin: 05/01/16 23:20 Dose: 150 mg - Objective Vital Signs: Vital Signs Temperature 97.3 F L 05/02/16 08:04 Pulse Rate 75 05/02/16 08:04 Respiratory Rate 18 05/02/16 08:04 Blood Pressure 134/74 05/02/16 08:04 O2 Sat by Pulse Oximetry (%) 96 05/01/16 21:00 Constitutional: Yes: Well Nourished, No Distress, Calm Cardiovascular: Yes: Regular Rate and Rhythm. No: Gallop, Murmur, Rub Respiratory: Yes: Regular, CTA Bilaterally. No: Rales, Rhonchi, Wheezes Gastrointestinal: Yes: Normal Bowel Sounds, Soft. No: Distention, Tenderness Extremities: Yes: Other (r knee in brace) Edema: No Labs: CBC, BMP 05/02/16 05:35 05/02/16 05:35 INR, PTT INR 1.81 (0.82-1.09) H D 04/29/16 05:45 Problem List - Problems (1) Pyelonephritis due to Escherichia coli Code(s): N12 - TUBULO-INTERSTITIAL NEPHRITIS, NOT SPCF ACUTE OR CHRONIC B96.20 - UNSP ESCHERICHIA COLI THE CAUSE OF DISEASES CLASSD ELSWHR (2) Sepsis Code(s): A41.9 - SEPSIS, UNSPECIFIED ORGANISM (3) Right patella fracture Code(s): S82.001A - UNSP FRACTURE OF RIGHT PATELLA, INIT FOR CLOS FX Qualifiers: Encounter type: initial encounter Fracture type: closed Fracture morphology: unspecified fracture morphology Fracture alignment: displaced Qualified Code(s): S82.001A - Unspecified fracture of right patella, initial encounter for closed fracture (4) GERD (gastroesophageal reflux disease) Code(s): K21.9 - GASTRO-ESOPHAGEAL REFLUX DISEASE WITHOUT ESOPHAGITIS Qualifiers: Esophagitis presence: without esophagitis Qualified Code(s): K21.9 - Gastro-esophageal reflux disease without esophagitis (5) Nasal bone fracture Code(s): S02.2XXA - FRACTURE OF NASAL BONES, INIT ENCNTR FOR CLOSED FRACTURE (6) Hypercholesteremia Code(s): E78.0 - PURE HYPERCHOLESTEROLEMIA * DO NOT USE * (7) Hypertension Code(s): I10 - ESSENTIAL (PRIMARY) HYPERTENSION Qualifiers: Hypertension type: essential hypertension Qualified Code(s): I10 - Essential (primary) hypertension (8) Hypothyroid Code(s): E03.9 - HYPOTHYROIDISM, UNSPECIFIED Qualifiers: Hypothyroidism type: unspecified Qualified Code(s): E03.9 - Hypothyroidism, unspecified Assessment/Plan (1) Right patella fracture Assessment/Plan: -s/p surgery -continue pain control -will need SNF placement -continue PT, encouraged patient to walk with PT Code(s): S82.001A - UNSP FRACTURE OF RIGHT PATELLA, INIT FOR CLOS FX Qualifiers: Encounter type: initial encounter Fracture type: closed Fracture morphology: unspecified fracture morphology Fracture alignment: displaced Qualified Code(s): S82.001A - Unspecified fracture of right patella, initial encounter for closed fracture (2) GERD (gastroesophageal reflux disease) Assessment/Plan: -continue ranitidine -resolved Code(s): K21.9 - GASTRO-ESOPHAGEAL REFLUX DISEASE WITHOUT ESOPHAGITIS (3) Nasal bone fracture Assessment/Plan: -stable Code(s): S02.2XXA - FRACTURE OF NASAL BONES, INIT ENCNTR FOR CLOSED FRACTURE (4) Hypercholesteremia Assessment/Plan: -continue lipitor Code(s): E78.0 - PURE HYPERCHOLESTEROLEMIA * DO NOT USE * (5) Hypertension Assessment/Plan: -continue toprol and lisinopril -continue to monitor Code(s): I10 - ESSENTIAL (PRIMARY) HYPERTENSION (6) Hypothyroid Assessment/Plan: -continue synthroid Code(s): E03.9 - HYPOTHYROIDISM, UNSPECIFIED (7) Constipation -patient with normal bowel movements -continue stool softeners (8) Pleural effusions -diuresed -patient feeling improved (9) Atrial fibrillation -case d/w cardiology -currently sounds in sinus rhythm -continue eliquis (10) ESBL pyelonephritis with sepsis -appreciate ID assistance -continue ertapenem -sepsis improving
--- NOTE | 2016-05-02 10:47 | PN ---
Progress Note, Physician History of Present Illness: PULMONARY ALERT,NAD,VERY WEAK,C/O RLE PAIN - Current Medication List Current Medications: Active Medications Acetaminophen (Tylenol -) 650 mg PO Q6H PRN PRN Reason: PAIN SCALE 6-10 Last Admin: 05/02/16 08:10 Dose: 650 mg Al Hydroxide/Mg Hydroxide (Mylanta Oral Suspension -) 30 ml PO Q6H PRN PRN Reason: DYSPEPSIA Albuterol/Ipratropium (Duoneb -) 1 amp NEB Q6H PRN PRN Reason: SHORTNESS OF BREATH Apixaban (Eliquis -) 2.5 mg PO BID [facility] Last Admin: 05/02/16 10:08 Dose: 2.5 mg Atorvastatin Calcium (Lipitor -) 10 mg PO HS [facility] Last Admin: 05/01/16 23:20 Dose: 10 mg Bacitracin (Bacitracin -) 1 applic TP BID [facility] Last Admin: 05/02/16 10:08 Dose: 1 applic Cholecalciferol (Vitamin D3 -) 400 unit PO DAILY [facility] Last Admin: 05/02/16 10:11 Dose: 400 unit Diltiazem HCl (Cardizem Injection -) 10 mg IVPUSH Q6H PRN Last Admin: 04/28/16 13:05 Dose: 10 mg Docusate Sodium (Colace -) 100 mg PO BID [facility] Last Admin: 05/02/16 10:08 Dose: 100 mg Furosemide (Lasix Injection -) 40 mg IVPUSH BID@0600,1400 [facility] Last Admin: 05/02/16 06:16 Dose: 40 mg Ertapenem 1 gm/ Sodium (Chloride) 50 mls @ 50 mls/hr IVPB DAILY [facility] Last Admin: 05/02/16 10:11 Dose: 50 mls/hr Levothyroxine Sodium (Synthroid -) 100 mcg PO DAILY@0700 [facility] Last Admin: 05/02/16 06:16 Dose: 100 mcg Lisinopril (Prinivil) 10 mg PO DAILY [facility] Last Admin: 05/02/16 10:08 Dose: 10 mg Metoprolol Tartrate (Lopressor -) 50 mg PO BID [facility] Last Admin: 05/02/16 10:07 Dose: 50 mg Nitroglycerin (Nitrostat -) 0.4 mg SL PRN PRN Ondansetron HCl (Zofran Odt -) 4 mg SL Q8H PRN PRN Reason: NAUSEA Last Admin: 04/25/16 09:44 Dose: 4 mg Oxycodone HCl (Roxicodone -) 5 mg PO Q4H PRN PRN Reason: PAIN Last Admin: 05/02/16 08:10 Dose: 5 mg Pantoprazole Sodium (Protonix -) 40 mg PO DAILY [facility] Last Admin: 05/02/16 10:07 Dose: 40 mg Polyethylene Glycol (Miralax (For Daily Use) -) 17 gm PO BID [facility] Last Admin: 05/02/16 10:08 Dose: 17 gm Potassium Chloride (K-Dur -) 40 meq PO DAILY [facility] Last Admin: 05/02/16 10:08 Dose: 40 meq Ranitidine HCl (Zantac -) 150 mg PO HS [facility] Last Admin: 05/01/16 23:20 Dose: 150 mg - Objective Vital Signs: Vital Signs Temperature 97.3 F L 05/02/16 08:04 Pulse Rate 75 05/02/16 08:04 Respiratory Rate 18 05/02/16 08:04 Blood Pressure 134/74 05/02/16 08:04 O2 Sat by Pulse Oximetry (%) 96 05/01/16 21:00 Constitutional: Yes: Well Nourished, Calm Eyes: Yes: WNL HENT: Yes: WNL Neck: Yes: WNL Cardiovascular: Yes: Regular Rate and Rhythm, S1, S2 Respiratory: Yes: Diminished Gastrointestinal: Yes: Normal Bowel Sounds, Soft Extremities: Yes: WNL Edema: No Labs: CBC, BMP 05/02/16 05:35 05/02/16 05:35 INR, PTT INR 1.81 (0.82-1.09) H D 04/29/16 05:45 Assessment/Plan Problem List - Problems (1) Atrial fibrillation Code(s): I48.91 - UNSPECIFIED ATRIAL FIBRILLATION Qualifiers: Atrial fibrillation type: paroxysmal Qualified Code(s): I48.0 - Paroxysmal atrial fibrillation (2) History of stroke Code(s): Z86.73 - PRSNL HX OF TIA (TIA), AND CEREB INFRC W/O RESID DEFICITS (3) Nasal bone fracture Code(s): S02.2XXA - FRACTURE OF NASAL BONES, INIT ENCNTR FOR CLOSED FRACTURE (4) Right patella fracture Code(s): S82.001A - UNSP FRACTURE OF RIGHT PATELLA, INIT FOR CLOS FX Qualifiers: Encounter type: initial encounter Fracture type: closed Fracture morphology: unspecified fracture morphology Fracture alignment: displaced Qualified Code(s): S82.001A - Unspecified fracture of right patella, initial encounter for closed fracture (5) GERD (gastroesophageal reflux disease) Code(s): K21.9 - GASTRO-ESOPHAGEAL REFLUX DISEASE WITHOUT ESOPHAGITIS Qualifiers: Esophagitis presence: without esophagitis Qualified Code(s): K21.9 - Gastro-esophageal reflux disease without esophagitis (6) Hypercholesteremia Code(s): E78.0 - PURE HYPERCHOLESTEROLEMIA * DO NOT USE * (7) Hypertension Code(s): I10 - ESSENTIAL (PRIMARY) HYPERTENSION Qualifiers: Hypertension type: essential hypertension Qualified Code(s): I10 - Essential (primary) hypertension (8) Hypothyroid Code(s): E03.9 - HYPOTHYROIDISM, UNSPECIFIED Qualifiers: Hypothyroidism type: unspecified Qualified Code(s): E03.9 - Hypothyroidism, unspecified Assessment/Plan PLAN: O2 as needed AC lasix monitor lytes ,renal function antibiotics as per id daily wts DR MASON
[2016-05-02] MEDS: ALBUTEROL SO4 2.5/IPRATROPIUM 0.5 INH SOL 3 ML VIAL.NEB. NEB PRN (11:13)
--- NOTE | 2016-05-02 11:51 | PN ---
Progress Note (short form) - Note Progress Note: Chief Complaint: Events noted, notes reviewed, denies any chest pain or dyspnea , sinus rhythm noted History of Present Illness: Seen and examined on telemetry. Events noted, notes reviewed, denies any chest pain or dyspnea, sinus rhythm noted Echocardiography revealed mild concentric LVH, normal LV systolic function, mild decrease in RV function, mild MR, TR, mild-moderate AR and a small pericardial effusion - Current Medication List Current Medications Acetaminophen (Tylenol -) 650 mg PO Q6H PRN PRN Reason: PAIN SCALE 6-10 Last Admin: 05/02/16 08:10 Dose: 650 mg Al Hydroxide/Mg Hydroxide (Mylanta Oral Suspension -) 30 ml PO Q6H PRN PRN Reason: DYSPEPSIA Albuterol/Ipratropium (Duoneb -) 1 amp NEB Q6H PRN PRN Reason: SHORTNESS OF BREATH Last Admin: 05/02/16 11:13 Dose: 1 amp Apixaban (Eliquis -) 2.5 mg PO BID [facility] Last Admin: 05/02/16 10:08 Dose: 2.5 mg Atorvastatin Calcium (Lipitor -) 10 mg PO HS [facility] Last Admin: 05/01/16 23:20 Dose: 10 mg Bacitracin (Bacitracin -) 1 applic TP BID [facility] Last Admin: 05/02/16 10:08 Dose: 1 applic Cholecalciferol (Vitamin D3 -) 400 unit PO DAILY [facility] Last Admin: 05/02/16 10:11 Dose: 400 unit Diltiazem HCl (Cardizem Injection -) 10 mg IVPUSH Q6H PRN Last Admin: 04/28/16 13:05 Dose: 10 mg Docusate Sodium (Colace -) 100 mg PO BID [facility] Last Admin: 05/02/16 10:08 Dose: 100 mg Furosemide (Lasix Injection -) 40 mg IVPUSH BID@0600,1400 [facility] Last Admin: 05/02/16 06:16 Dose: 40 mg Ertapenem 1 gm/ Sodium (Chloride) 50 mls @ 50 mls/hr IVPB DAILY [facility] Last Admin: 05/02/16 10:11 Dose: 50 mls/hr Levothyroxine Sodium (Synthroid -) 100 mcg PO DAILY@0700 [facility] Last Admin: 05/02/16 06:16 Dose: 100 mcg Lisinopril (Prinivil) 10 mg PO DAILY [facility] Last Admin: 05/02/16 10:08 Dose: 10 mg Metoprolol Tartrate (Lopressor -) 50 mg PO BID [facility] Last Admin: 05/02/16 10:07 Dose: 50 mg Nitroglycerin (Nitrostat -) 0.4 mg SL PRN PRN Ondansetron HCl (Zofran Odt -) 4 mg SL Q8H PRN PRN Reason: NAUSEA Last Admin: 04/25/16 09:44 Dose: 4 mg Oxycodone HCl (Roxicodone -) 5 mg PO Q4H PRN PRN Reason: PAIN Last Admin: 05/02/16 08:10 Dose: 5 mg Pantoprazole Sodium (Protonix -) 40 mg PO DAILY [facility] Last Admin: 05/02/16 10:07 Dose: 40 mg Polyethylene Glycol (Miralax (For Daily Use) -) 17 gm PO BID [facility] Last Admin: 05/02/16 10:08 Dose: 17 gm Potassium Chloride (K-Dur -) 40 meq PO DAILY [facility] Last Admin: 05/02/16 10:08 Dose: 40 meq Ranitidine HCl (Zantac -) 150 mg PO HS [facility] Last Admin: 05/01/16 23:20 Dose: 150 mg Review of Systems Constitutional: denies: Chills, Fever Cardiovascular: As noted above Respiratory: denies: Cough or Sputum Production Gastrointestinal: denies: Nausea, Vomiting, Diarrhea, Constipation or Abdominal Pain Genitourinary: No symptoms reported Musculoskeletal: No symptoms reported - Objective Vital Signs: Last Vital Signs Temp Pulse Resp BP Pulse Ox 97.3 F L 75 18 134/74 96 05/02/16 08:04 05/02/16 08:04 05/02/16 08:04 05/02/16 08:04 05/01/16 21:00 Constitutional: No Distress, Calm Neck: Supple Negative JVD Cardiovascular: S1 S2 Regular Rate and Rhythm Respiratory: Diminished Breath Sounds at the Bases Gastrointestinal: Soft Benign Normal Bowel Sounds Ext: Trace Edema Cast in Situ Labs: CBC, BMP 05/02/16 05:35 05/02/16 05:35 INR, PTT INR 1.81 (0.82-1.09) H D 04/29/16 05:45 Assessment/Plan ASSESSMENT: 1. 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 Paroxysmal atrial fibrillation currently in sinus rhythm [id number] score of 8 on NOAC's 3. 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 HTN 6. Hyperlipidemia 7. Hypothyroidism 8. Patella fracture secondary to mechanical fall post ORIF 9. History of GERD/esophageal spasm 10. Acute on CKD resolved 11. Leukocytosis left pyelonephritis releated to E. coli (ESBL) 12. Mild-moderate left hydronephrosis PLAN: 1. Continue Lopressor 2. Continue Lisinopril 3. Continue Lipitor 4. Continue Eliquis at 2.5 mg BID (age>80, wt<60 kg) 5. Continue IV Lasix with close monitoring of renal function 6. Antibiotics as per primary team Alexander Aguilar M.D.
--- NOTE | 2016-05-02 13:11 | PN ---
Progress Note, Physician History of Present Illness: Awake, alert C/O R knee pain No c/o dysuria/ hematuria No fever/ chills - Current Medication List Current Medications: Active Medications Acetaminophen (Tylenol -) 650 mg PO Q6H PRN PRN Reason: PAIN SCALE 6-10 Last Admin: 05/02/16 08:10 Dose: 650 mg Al Hydroxide/Mg Hydroxide (Mylanta Oral Suspension -) 30 ml PO Q6H PRN PRN Reason: DYSPEPSIA Albuterol/Ipratropium (Duoneb -) 1 amp NEB Q6H PRN PRN Reason: SHORTNESS OF BREATH Last Admin: 05/02/16 11:13 Dose: 1 amp Apixaban (Eliquis -) 2.5 mg PO BID [facility] Last Admin: 05/02/16 10:08 Dose: 2.5 mg Atorvastatin Calcium (Lipitor -) 10 mg PO HS [facility] Last Admin: 05/01/16 23:20 Dose: 10 mg Bacitracin (Bacitracin -) 1 applic TP BID [facility] Last Admin: 05/02/16 10:08 Dose: 1 applic Cholecalciferol (Vitamin D3 -) 400 unit PO DAILY [facility] Last Admin: 05/02/16 10:11 Dose: 400 unit Diltiazem HCl (Cardizem Injection -) 10 mg IVPUSH Q6H PRN Last Admin: 04/28/16 13:05 Dose: 10 mg Docusate Sodium (Colace -) 100 mg PO BID [facility] Last Admin: 05/02/16 10:08 Dose: 100 mg Furosemide (Lasix Injection -) 40 mg IVPUSH BID@0600,1400 [facility] Last Admin: 05/02/16 06:16 Dose: 40 mg Ertapenem 1 gm/ Sodium (Chloride) 50 mls @ 50 mls/hr IVPB DAILY [facility] Last Admin: 05/02/16 10:11 Dose: 50 mls/hr Levothyroxine Sodium (Synthroid -) 100 mcg PO DAILY@0700 [facility] Last Admin: 05/02/16 06:16 Dose: 100 mcg Lisinopril (Prinivil) 10 mg PO DAILY [facility] Last Admin: 05/02/16 10:08 Dose: 10 mg Metoprolol Tartrate (Lopressor -) 50 mg PO BID [facility] Last Admin: 05/02/16 10:07 Dose: 50 mg Nitroglycerin (Nitrostat -) 0.4 mg SL PRN PRN Ondansetron HCl (Zofran Odt -) 4 mg SL Q8H PRN PRN Reason: NAUSEA Last Admin: 04/25/16 09:44 Dose: 4 mg Oxycodone HCl (Roxicodone -) 5 mg PO Q4H PRN PRN Reason: PAIN Last Admin: 05/02/16 08:10 Dose: 5 mg Pantoprazole Sodium (Protonix -) 40 mg PO DAILY [facility] Last Admin: 05/02/16 10:07 Dose: 40 mg Polyethylene Glycol (Miralax (For Daily Use) -) 17 gm PO BID [facility] Last Admin: 05/02/16 10:08 Dose: 17 gm Potassium Chloride (K-Dur -) 40 meq PO DAILY [facility] Last Admin: 05/02/16 10:08 Dose: 40 meq Ranitidine HCl (Zantac -) 150 mg PO HS [facility] Last Admin: 05/01/16 23:20 Dose: 150 mg - Objective Vital Signs: Vital Signs Temperature 97.3 F L 05/02/16 08:04 Pulse Rate 75 05/02/16 08:04 Respiratory Rate 18 05/02/16 09:00 Blood Pressure 134/74 05/02/16 08:04 O2 Sat by Pulse Oximetry (%) 97 05/02/16 09:00 Constitutional: Yes: No Distress Eyes: Yes: Conjunctiva Clear Cardiovascular: Yes: Regular Rate and Rhythm, S1, S2 Respiratory: Yes: CTA Bilaterally Gastrointestinal: Yes: Normal Bowel Sounds, Soft. No: Tenderness Extremities: Yes: Other (No R LE erythema /swelling) Labs: CBC, BMP 05/02/16 05:35 05/02/16 05:35 INR, PTT INR 1.81 (0.82-1.09) H D 04/29/16 05:45 Assessment/Plan Leukocytosis- probable source- improved + urine c/s ESBL Possible pyelonephritis PCN / Quinolone allergy Continue ertapenem 1gm IVPB q24h Contact precautions
[2016-05-02] MEDS: morphine CARPU-JECT 2 MG/1 ML DISP.SYRIN IVPUSH PRN (20:15)
[2016-05-02] MEDS: RANITIDINE HCL 150 MG TABLET (FP) PO SCH (22:04)
[2016-05-02] MEDS: ATORVASTATIN CA 10 MG TABLET (FP) PO SCH (22:04)
[2016-05-03] MEDS: FUROSEMIDE 40 MG/4 ML INJECTABLE VIAL IVPUSH SCH ×2 (06:04→14:58)
[2016-05-03] MEDS: LEVOTHYROXINE NA 100 MCG TABLET (FP) PO SCH (06:05)
[2016-05-03 08:01] LABS: BASOPHIL 0.2 % (0-2.0); EOSINOPHIL 0.5 % (0-4.5); MCH 30.3 pg (25.7-33.7); MCHC 32.7 g/dl (32.0-36.0); MEAN CELL VOLUME 92.6 fl (80-96); MEAN PLT VOLUME 8.3 fl (7.5-11.1); NEUTROPHILS 83.6 % (42.8-82.8); PLATELET COUNT 491 K/MM3 (134-434); RDW 14.8 % (11.6-15.6); WHITE BLOOD COUNT 18.9 K/mm3 (4.0-10.0)
[2016-05-03 08:17] LABS: CALCIUM 8.6 mg/dL (8.5-10.1); CREATININE 0.9 mg/dL (0.55-1.02); MAGNESIUM 2.4 mg/dL (1.8-2.4); PHOSPHOROUS 4.1 mg/dL (2.5-4.9)
[2016-05-03] MEDS: morphine CARPU-JECT 2 MG/1 ML DISP.SYRIN IVPUSH PRN (08:34)
[2016-05-03] MEDS ORDERED: PT OWN MED DRAWER 7, Y5N ONE (09:08)
[2016-05-03] MEDS: DOCUSATE SODIUM 100 MG CAPSULE (FP) PO SCH ×2 (09:23→22:57)
[2016-05-03] MEDS: POLYETHYLENE GLYCOL 3350 119 GM BTL PO SCH ×2 (09:23→22:59)
[2016-05-03] MEDS: ERTAPENEM SODIUM 1 GM in SODIUM CHLORIDE 50 ML IVPB SCH (09:25)
[2016-05-03] MEDS: LISINOPRIL 10 MG TABLET (FP) PO SCH (09:27)
[2016-05-03] MEDS: METOPROLOL TARTRATE 50 MG TABLET (FP) PO SCH ×2 (09:28→22:57)
[2016-05-03] MEDS: PANTOPRAZOLE 40 MG TABLET (FP) PO SCH (09:28)
[2016-05-03] MEDS: BACITRACIN 30 GM TUBE TOPICAL OINTMENT TP SCH ×2 (09:28→22:58)
[2016-05-03] MEDS: APIXABAN 2.5 MG TABLET PO SCH ×2 (09:28→22:58)
[2016-05-03] MEDS: POTASSIUM CHLORIDE TABS 20 MEQ TABLET.ER (FP) PO SCH (09:28)
[2016-05-03] MEDS: CHOLECALCIFEROL (VITAMIN D3) 400 UNIT TABLET (FP) PO SCH (09:29)
--- NOTE | 2016-05-03 10:27 | PN ---
Progress Note, Physician Chief Complaint: Ms Mei is complaining of chest pain. It is left sided, non-radiating, sharp in nature. She does not have shortness of breath, nausea/vomiting, lightheadedness, palpitations, or any other concerns. - Current Medication List Current Medications: Active Medications Acetaminophen (Tylenol -) 650 mg PO Q6H PRN PRN Reason: PAIN SCALE 6-10 Last Admin: 05/02/16 14:43 Dose: 650 mg Al Hydroxide/Mg Hydroxide (Mylanta Oral Suspension -) 30 ml PO Q6H PRN PRN Reason: DYSPEPSIA Albuterol/Ipratropium (Duoneb -) 1 amp NEB Q6H PRN PRN Reason: SHORTNESS OF BREATH Last Admin: 05/02/16 11:13 Dose: 1 amp Apixaban (Eliquis -) 2.5 mg PO BID [facility] Last Admin: 05/03/16 09:28 Dose: 2.5 mg Atorvastatin Calcium (Lipitor -) 10 mg PO HS [facility] Last Admin: 05/02/16 22:04 Dose: 10 mg Bacitracin (Bacitracin -) 1 applic TP BID [facility] Last Admin: 05/03/16 09:28 Dose: Not Given Cholecalciferol (Vitamin D3 -) 400 unit PO DAILY [facility] Last Admin: 05/03/16 09:29 Dose: 400 unit Diltiazem HCl (Cardizem Injection -) 10 mg IVPUSH Q6H PRN Last Admin: 04/28/16 13:05 Dose: 10 mg Docusate Sodium (Colace -) 100 mg PO BID [facility] Last Admin: 05/03/16 09:23 Dose: Not Given Furosemide (Lasix Injection -) 40 mg IVPUSH BID@0600,1400 [facility] Last Admin: 05/03/16 06:04 Dose: 40 mg Ertapenem 1 gm/ Sodium (Chloride) 50 mls @ 50 mls/hr IVPB DAILY [facility] Last Admin: 05/03/16 09:25 Dose: 50 mls/hr Levothyroxine Sodium (Synthroid -) 100 mcg PO DAILY@0700 [facility] Last Admin: 05/03/16 06:05 Dose: 100 mcg Lisinopril (Prinivil) 10 mg PO DAILY [facility] Last Admin: 05/03/16 09:27 Dose: 10 mg Metoprolol Tartrate (Lopressor -) 50 mg PO BID [facility] Last Admin: 05/03/16 09:28 Dose: 50 mg Morphine Sulfate (Morphine Injection -) 2 mg IVPUSH Q3H PRN PRN Reason: PAIN Last Admin: 05/03/16 08:34 Dose: 2 mg Nitroglycerin (Nitrostat -) 0.4 mg SL PRN PRN Ondansetron HCl (Zofran Odt -) 4 mg SL Q8H PRN PRN Reason: NAUSEA Last Admin: 04/25/16 09:44 Dose: 4 mg Oxycodone HCl (Roxicodone -) 5 mg PO Q4H PRN PRN Reason: PAIN Last Admin: 05/02/16 14:43 Dose: 5 mg Pantoprazole Sodium (Protonix -) 40 mg PO DAILY [facility] Last Admin: 05/03/16 09:28 Dose: 40 mg Polyethylene Glycol (Miralax (For Daily Use) -) 17 gm PO BID [facility] Last Admin: 05/03/16 09:23 Dose: Not Given Potassium Chloride (K-Dur -) 40 meq PO DAILY [facility] Last Admin: 05/03/16 09:28 Dose: 40 meq Ranitidine HCl (Zantac -) 150 mg PO HS [facility] Last Admin: 05/02/16 22:04 Dose: 150 mg - Objective Vital Signs: Vital Signs Temperature 97.6 F 05/03/16 08:30 Pulse Rate 75 05/03/16 08:30 Respiratory Rate 18 05/03/16 08:31 Blood Pressure 130/73 05/03/16 08:30 O2 Sat by Pulse Oximetry (%) 98 05/03/16 08:31 Constitutional: Yes: No Distress, Calm Cardiovascular: Yes: Regular Rate and Rhythm, Other (reproducible chest pain with palpation of ribs and deep breathing). No: Gallop, Murmur, Rub Respiratory: Yes: Regular, CTA Bilaterally. No: Rales, Rhonchi, Wheezes Gastrointestinal: Yes: Normal Bowel Sounds, Soft. No: Distention, Tenderness Extremities: Yes: WNL Edema: No Labs: CBC, BMP 05/03/16 05:35 05/03/16 05:35 INR, PTT INR 1.81 (0.82-1.09) H D 04/29/16 05:45 Problem List - Problems (1) Chest pain Code(s): R07.9 - CHEST PAIN, UNSPECIFIED (2) Pyelonephritis due to Escherichia coli Code(s): N12 - TUBULO-INTERSTITIAL NEPHRITIS, NOT SPCF ACUTE OR CHRONIC B96.20 - UNSP ESCHERICHIA COLI THE CAUSE OF DISEASES CLASSD ELSWHR (3) Sepsis Code(s): A41.9 - SEPSIS, UNSPECIFIED ORGANISM (4) Right patella fracture Code(s): S82.001A - UNSP FRACTURE OF RIGHT PATELLA, INIT FOR CLOS FX Qualifiers: Encounter type: initial encounter Fracture type: closed Fracture morphology: unspecified fracture morphology Fracture alignment: displaced Qualified Code(s): S82.001A - Unspecified fracture of right patella, initial encounter for closed fracture (5) GERD (gastroesophageal reflux disease) Code(s): K21.9 - GASTRO-ESOPHAGEAL REFLUX DISEASE WITHOUT ESOPHAGITIS Qualifiers: Esophagitis presence: without esophagitis Qualified Code(s): K21.9 - Gastro-esophageal reflux disease without esophagitis (6) Nasal bone fracture Code(s): S02.2XXA - FRACTURE OF NASAL BONES, INIT ENCNTR FOR CLOSED FRACTURE (7) Hypercholesteremia Code(s): E78.0 - PURE HYPERCHOLESTEROLEMIA * DO NOT USE * (8) Hypertension Code(s): I10 - ESSENTIAL (PRIMARY) HYPERTENSION Qualifiers: Hypertension type: essential hypertension Qualified Code(s): I10 - Essential (primary) hypertension (9) Hypothyroid Code(s): E03.9 - HYPOTHYROIDISM, UNSPECIFIED Qualifiers: Hypothyroidism type: unspecified Qualified Code(s): E03.9 - Hypothyroidism, unspecified Assessment/Plan (1) Chest pain -reproducible chest pain -EKG reviewed, no change except now in sinus rhythm instead of atrial fibrillation seen on last EKG -suspect most likely musculoskeletal in nature, but will evaluate for cardiac chest pain -already on metoprolol, lisinopril, and lipitor -anticoagulated with eliquis -prn morphine and NTG ordered as well -check cardiac enzymes x3 -check chest x-ray -cardiology made aware (2) ESBL pyelonephritis with sepsis -ID following -continue ertapenem per ID recommendations -still with leukocytosis (3) Right patella fracture Assessment/Plan: -s/p surgery -continue pain control -will need SNF placement -continue PT, encouraged patient to walk with PT Code(s): S82.001A - UNSP FRACTURE OF RIGHT PATELLA, INIT FOR CLOS FX Qualifiers: Encounter type: initial encounter Fracture type: closed Fracture morphology: unspecified fracture morphology Fracture alignment: displaced Qualified Code(s): S82.001A - Unspecified fracture of right patella, initial encounter for closed fracture (4) Hypercholesteremia Assessment/Plan: -continue lipitor Code(s): E78.0 - PURE HYPERCHOLESTEROLEMIA * DO NOT USE * (5) Hypertension Assessment/Plan: -continue toprol and lisinopril -continue to monitor Code(s): I10 - ESSENTIAL (PRIMARY) HYPERTENSION (6) Hypothyroid Assessment/Plan: -continue synthroid Code(s): E03.9 - HYPOTHYROIDISM, UNSPECIFIED (7) Pleural effusions -check chest x-ray (8) Atrial fibrillation -currently in sinus rhythm -continue metoprolol and diltiazem -continue eliquis
--- NOTE | 2016-05-03 11:01 | PN ---
Progress Note, Physician History of Present Illness: pulmonary alert,c/o chest pain (reproducible),weak,-sob - Current Medication List Current Medications: Active Medications Acetaminophen (Tylenol -) 650 mg PO Q6H PRN PRN Reason: PAIN SCALE 6-10 Last Admin: 05/02/16 14:43 Dose: 650 mg Al Hydroxide/Mg Hydroxide (Mylanta Oral Suspension -) 30 ml PO Q6H PRN PRN Reason: DYSPEPSIA Albuterol/Ipratropium (Duoneb -) 1 amp NEB Q6H PRN PRN Reason: SHORTNESS OF BREATH Last Admin: 05/02/16 11:13 Dose: 1 amp Apixaban (Eliquis -) 2.5 mg PO BID [facility] Last Admin: 05/03/16 09:28 Dose: 2.5 mg Atorvastatin Calcium (Lipitor -) 10 mg PO HS [facility] Last Admin: 05/02/16 22:04 Dose: 10 mg Bacitracin (Bacitracin -) 1 applic TP BID [facility] Last Admin: 05/03/16 09:28 Dose: Not Given Cholecalciferol (Vitamin D3 -) 400 unit PO DAILY [facility] Last Admin: 05/03/16 09:29 Dose: 400 unit Diltiazem HCl (Cardizem Injection -) 10 mg IVPUSH Q6H PRN Last Admin: 04/28/16 13:05 Dose: 10 mg Docusate Sodium (Colace -) 100 mg PO BID [facility] Last Admin: 05/03/16 09:23 Dose: Not Given Furosemide (Lasix Injection -) 40 mg IVPUSH BID@0600,1400 [facility] Last Admin: 05/03/16 06:04 Dose: 40 mg Ertapenem 1 gm/ Sodium (Chloride) 50 mls @ 50 mls/hr IVPB DAILY [facility] Last Admin: 05/03/16 09:25 Dose: 50 mls/hr Levothyroxine Sodium (Synthroid -) 100 mcg PO DAILY@0700 [facility] Last Admin: 05/03/16 06:05 Dose: 100 mcg Lisinopril (Prinivil) 10 mg PO DAILY [facility] Last Admin: 05/03/16 09:27 Dose: 10 mg Metoprolol Tartrate (Lopressor -) 50 mg PO BID [facility] Last Admin: 05/03/16 09:28 Dose: 50 mg Morphine Sulfate (Morphine Injection -) 2 mg IVPUSH Q3H PRN PRN Reason: PAIN Last Admin: 05/03/16 08:34 Dose: 2 mg Nitroglycerin (Nitrostat -) 0.4 mg SL PRN PRN Ondansetron HCl (Zofran Odt -) 4 mg SL Q8H PRN PRN Reason: NAUSEA Last Admin: 04/25/16 09:44 Dose: 4 mg Oxycodone HCl (Roxicodone -) 5 mg PO Q4H PRN PRN Reason: PAIN Last Admin: 05/02/16 14:43 Dose: 5 mg Pantoprazole Sodium (Protonix -) 40 mg PO DAILY [facility] Last Admin: 05/03/16 09:28 Dose: 40 mg Polyethylene Glycol (Miralax (For Daily Use) -) 17 gm PO BID [facility] Last Admin: 05/03/16 09:23 Dose: Not Given Potassium Chloride (K-Dur -) 40 meq PO DAILY [facility] Last Admin: 05/03/16 09:28 Dose: 40 meq Ranitidine HCl (Zantac -) 150 mg PO HS [facility] Last Admin: 05/02/16 22:04 Dose: 150 mg - Objective Vital Signs: Vital Signs Temperature 97.6 F 05/03/16 08:30 Pulse Rate 75 05/03/16 08:30 Respiratory Rate 18 05/03/16 08:31 Blood Pressure 130/73 05/03/16 08:30 O2 Sat by Pulse Oximetry (%) 98 05/03/16 08:31 Constitutional: Yes: Calm, Thin Eyes: Yes: WNL HENT: Yes: WNL Neck: Yes: WNL Cardiovascular: Yes: Pulse Irregular, S1, S2 Respiratory: Yes: Diminished Gastrointestinal: Yes: Normal Bowel Sounds, Soft Extremities: Yes: WNL Edema: No Labs: CBC, BMP 05/03/16 05:35 05/03/16 05:35 INR, PTT INR 1.81 (0.82-1.09) H D 04/29/16 05:45 Assessment/Plan Problem List - Problems (1) Atrial fibrillation Code(s): I48.91 - UNSPECIFIED ATRIAL FIBRILLATION Qualifiers: Atrial fibrillation type: paroxysmal Qualified Code(s): I48.0 - Paroxysmal atrial fibrillation (2) History of stroke Code(s): Z86.73 - PRSNL HX OF TIA (TIA), AND CEREB INFRC W/O RESID DEFICITS (3) Nasal bone fracture Code(s): S02.2XXA - FRACTURE OF NASAL BONES, INIT ENCNTR FOR CLOSED FRACTURE (4) Right patella fracture Code(s): S82.001A - UNSP FRACTURE OF RIGHT PATELLA, INIT FOR CLOS FX Qualifiers: Encounter type: initial encounter Fracture type: closed Fracture morphology: unspecified fracture morphology Fracture alignment: displaced Qualified Code(s): S82.001A - Unspecified fracture of right patella, initial encounter for closed fracture (5) GERD (gastroesophageal reflux disease) Code(s): K21.9 - GASTRO-ESOPHAGEAL REFLUX DISEASE WITHOUT ESOPHAGITIS Qualifiers: Esophagitis presence: without esophagitis Qualified Code(s): K21.9 - Gastro-esophageal reflux disease without esophagitis (6) Hypercholesteremia Code(s): E78.0 - PURE HYPERCHOLESTEROLEMIA * DO NOT USE * (7) Hypertension Code(s): I10 - ESSENTIAL (PRIMARY) HYPERTENSION Qualifiers: Hypertension type: essential hypertension Qualified Code(s): I10 - Essential (primary) hypertension (8) Hypothyroid Code(s): E03.9 - HYPOTHYROIDISM, UNSPECIFIED Qualifiers: Hypothyroidism type: unspecified Qualified Code(s): E03.9 - Hypothyroidism, unspecified Assessment/Plan PLAN: O2 as needed AC lasix monitor lytes ,renal function antibiotics as per id daily wts chest x-ray DR MASON
[2016-05-03 11:05] LABS: TROPONIN I < 0.02 ng/ml (0.00-0.05)
--- NOTE | 2016-05-03 12:05 | PN ---
Progress Note, Physician History of Present Illness: C/O R knee pain Afebrile WBC improved, but remains elevated - Current Medication List Current Medications: Active Medications Acetaminophen (Tylenol -) 650 mg PO Q6H PRN PRN Reason: PAIN SCALE 6-10 Last Admin: 05/02/16 14:43 Dose: 650 mg Al Hydroxide/Mg Hydroxide (Mylanta Oral Suspension -) 30 ml PO Q6H PRN PRN Reason: DYSPEPSIA Albuterol/Ipratropium (Duoneb -) 1 amp NEB Q6H PRN PRN Reason: SHORTNESS OF BREATH Last Admin: 05/02/16 11:13 Dose: 1 amp Apixaban (Eliquis -) 2.5 mg PO BID [facility] Last Admin: 05/03/16 09:28 Dose: 2.5 mg Atorvastatin Calcium (Lipitor -) 10 mg PO HS [facility] Last Admin: 05/02/16 22:04 Dose: 10 mg Bacitracin (Bacitracin -) 1 applic TP BID [facility] Last Admin: 05/03/16 09:28 Dose: Not Given Cholecalciferol (Vitamin D3 -) 400 unit PO DAILY [facility] Last Admin: 05/03/16 09:29 Dose: 400 unit Diltiazem HCl (Cardizem Injection -) 10 mg IVPUSH Q6H PRN Last Admin: 04/28/16 13:05 Dose: 10 mg Docusate Sodium (Colace -) 100 mg PO BID [facility] Last Admin: 05/03/16 09:23 Dose: Not Given Furosemide (Lasix Injection -) 40 mg IVPUSH BID@0600,1400 [facility] Last Admin: 05/03/16 06:04 Dose: 40 mg Ertapenem 1 gm/ Sodium (Chloride) 50 mls @ 50 mls/hr IVPB DAILY [facility] Last Admin: 05/03/16 09:25 Dose: 50 mls/hr Levothyroxine Sodium (Synthroid -) 100 mcg PO DAILY@0700 [facility] Last Admin: 05/03/16 06:05 Dose: 100 mcg Lisinopril (Prinivil) 10 mg PO DAILY [facility] Last Admin: 05/03/16 09:27 Dose: 10 mg Metoprolol Tartrate (Lopressor -) 50 mg PO BID [facility] Last Admin: 05/03/16 09:28 Dose: 50 mg Morphine Sulfate (Morphine Injection -) 2 mg IVPUSH Q3H PRN PRN Reason: PAIN Last Admin: 05/03/16 08:34 Dose: 2 mg Nitroglycerin (Nitrostat -) 0.4 mg SL PRN PRN Ondansetron HCl (Zofran Odt -) 4 mg SL Q8H PRN PRN Reason: NAUSEA Last Admin: 04/25/16 09:44 Dose: 4 mg Oxycodone HCl (Roxicodone -) 5 mg PO Q4H PRN PRN Reason: PAIN Last Admin: 05/02/16 14:43 Dose: 5 mg Pantoprazole Sodium (Protonix -) 40 mg PO DAILY [facility] Last Admin: 05/03/16 09:28 Dose: 40 mg Polyethylene Glycol (Miralax (For Daily Use) -) 17 gm PO BID [facility] Last Admin: 05/03/16 09:23 Dose: Not Given Potassium Chloride (K-Dur -) 40 meq PO DAILY [facility] Last Admin: 05/03/16 09:28 Dose: 40 meq Ranitidine HCl (Zantac -) 150 mg PO HS [facility] Last Admin: 05/02/16 22:04 Dose: 150 mg - Objective Vital Signs: Vital Signs Temperature 97.6 F 05/03/16 08:30 Pulse Rate 75 05/03/16 08:30 Respiratory Rate 18 05/03/16 08:31 Blood Pressure 130/73 05/03/16 08:30 O2 Sat by Pulse Oximetry (%) 98 05/03/16 08:31 Constitutional: Yes: No Distress Eyes: Yes: Conjunctiva Clear Cardiovascular: Yes: Regular Rate and Rhythm, S1, S2 Respiratory: Yes: CTA Bilaterally Gastrointestinal: Yes: Normal Bowel Sounds, Soft, Tenderness Edema: No Labs: CBC, BMP 05/03/16 05:35 05/03/16 05:35 INR, PTT INR 1.81 (0.82-1.09) H D 04/29/16 05:45 Assessment/Plan Leukocytosis- probable source- improved + urine c/s ESBL Possible pyelonephritis PCN / Quinolone allergy Continue ertapenem 1gm IVPB q24h Contact precautions
--- NOTE | 2016-05-03 15:03 | PN ---
Progress Note, Physician History of Present Illness: Dyspnea and LE edema improving with diuresis, remains in sinus rhythm, feels weak. Reports atypical reproducible left sided chest wall discomfort. - Current Medication List Current Medications: Active Medications Acetaminophen (Tylenol -) 650 mg PO Q6H PRN PRN Reason: PAIN SCALE 6-10 Last Admin: 05/02/16 14:43 Dose: 650 mg Al Hydroxide/Mg Hydroxide (Mylanta Oral Suspension -) 30 ml PO Q6H PRN PRN Reason: DYSPEPSIA Albuterol/Ipratropium (Duoneb -) 1 amp NEB Q6H PRN PRN Reason: SHORTNESS OF BREATH Last Admin: 05/02/16 11:13 Dose: 1 amp Apixaban (Eliquis -) 2.5 mg PO BID [facility] Last Admin: 05/03/16 09:28 Dose: 2.5 mg Atorvastatin Calcium (Lipitor -) 10 mg PO HS [facility] Last Admin: 05/02/16 22:04 Dose: 10 mg Bacitracin (Bacitracin -) 1 applic TP BID [facility] Last Admin: 05/03/16 09:28 Dose: Not Given Cholecalciferol (Vitamin D3 -) 400 unit PO DAILY [facility] Last Admin: 05/03/16 09:29 Dose: 400 unit Diltiazem HCl (Cardizem Injection -) 10 mg IVPUSH Q6H PRN Last Admin: 04/28/16 13:05 Dose: 10 mg Docusate Sodium (Colace -) 100 mg PO BID [facility] Last Admin: 05/03/16 09:23 Dose: Not Given Furosemide (Lasix Injection -) 40 mg IVPUSH BID@0600,1400 [facility] Last Admin: 05/03/16 14:58 Dose: 40 mg Ertapenem 1 gm/ Sodium (Chloride) 50 mls @ 50 mls/hr IVPB DAILY [facility] Last Admin: 05/03/16 09:25 Dose: 50 mls/hr Levothyroxine Sodium (Synthroid -) 100 mcg PO DAILY@0700 [facility] Last Admin: 05/03/16 06:05 Dose: 100 mcg Lisinopril (Prinivil) 10 mg PO DAILY [facility] Last Admin: 05/03/16 09:27 Dose: 10 mg Metoprolol Tartrate (Lopressor -) 50 mg PO BID [facility] Last Admin: 05/03/16 09:28 Dose: 50 mg Morphine Sulfate (Morphine Injection -) 2 mg IVPUSH Q3H PRN PRN Reason: PAIN Last Admin: 05/03/16 08:34 Dose: 2 mg Nitroglycerin (Nitrostat -) 0.4 mg SL PRN PRN Ondansetron HCl (Zofran Odt -) 4 mg SL Q8H PRN PRN Reason: NAUSEA Last Admin: 04/25/16 09:44 Dose: 4 mg Oxycodone HCl (Roxicodone -) 5 mg PO Q4H PRN PRN Reason: PAIN Last Admin: 05/02/16 14:43 Dose: 5 mg Pantoprazole Sodium (Protonix -) 40 mg PO DAILY [facility] Last Admin: 05/03/16 09:28 Dose: 40 mg Polyethylene Glycol (Miralax (For Daily Use) -) 17 gm PO BID [facility] Last Admin: 05/03/16 09:23 Dose: Not Given Potassium Chloride (K-Dur -) 40 meq PO DAILY [facility] Last Admin: 05/03/16 09:28 Dose: 40 meq Ranitidine HCl (Zantac -) 150 mg PO HS [facility] Last Admin: 05/02/16 22:04 Dose: 150 mg - Objective Vital Signs: Vital Signs Temperature 97.8 F 05/03/16 14:42 Pulse Rate 75 05/03/16 14:42 Respiratory Rate 20 05/03/16 14:42 Blood Pressure 130/67 05/03/16 14:42 O2 Sat by Pulse Oximetry (%) 98 05/03/16 08:31 Constitutional: Yes: No Distress, Calm Neck: Yes: Supple Cardiovascular: Yes: Regular Rate and Rhythm Respiratory: Yes: Regular, Diminished Gastrointestinal: Yes: Normal Bowel Sounds, Soft Edema: Yes Labs: CBC, BMP 05/03/16 05:35 05/03/16 05:35 INR, PTT INR 1.81 (0.82-1.09) H D 04/29/16 05:45 - ....Imaging Chest X-ray: Report Reviewed (Improved CHF and pleural effusions) EKG: Report Reviewed (Tele:) Problem List - Problems (1) Right patella fracture Code(s): S82.001A - UNSP FRACTURE OF RIGHT PATELLA, INIT FOR CLOS FX Qualifiers: Encounter type: initial encounter Fracture type: closed Fracture morphology: unspecified fracture morphology Fracture alignment: displaced Qualified Code(s): S82.001A - Unspecified fracture of right patella, initial encounter for closed fracture (2) Hypercholesteremia Code(s): E78.0 - PURE HYPERCHOLESTEROLEMIA * DO NOT USE * (3) Hypertension Code(s): I10 - ESSENTIAL (PRIMARY) HYPERTENSION Qualifiers: Hypertension type: essential hypertension Qualified Code(s): I10 - Essential (primary) hypertension (4) Hypothyroid Code(s): E03.9 - HYPOTHYROIDISM, UNSPECIFIED Qualifiers: Hypothyroidism type: unspecified Qualified Code(s): E03.9 - Hypothyroidism, unspecified (5) History of stroke Code(s): Z86.73 - PRSNL HX OF TIA (TIA), AND CEREB INFRC W/O RESID DEFICITS (6) Atrial fibrillation Code(s): I48.91 - UNSPECIFIED ATRIAL FIBRILLATION Qualifiers: Atrial fibrillation type: paroxysmal Qualified Code(s): I48.0 - Paroxysmal atrial fibrillation (7) Diastolic CHF, acute on chronic Code(s): I50.33 - ACUTE ON CHRONIC DIASTOLIC (CONGESTIVE) HEART FAILURE (8) Pleural effusion due to CHF (congestive heart failure) Code(s): I50.9 - HEART FAILURE, UNSPECIFIED (9) Pyelonephritis due to Escherichia coli Code(s): N12 - TUBULO-INTERSTITIAL NEPHRITIS, NOT SPCF ACUTE OR CHRONIC B96.20 - UNSP ESCHERICHIA COLI THE CAUSE OF DISEASES CLASSD ELSWHR (10) Leukocytosis Code(s): D72.829 - ELEVATED WHITE BLOOD CELL COUNT, UNSPECIFIED (11) Hydronephrosis Code(s): N13.30 - UNSPECIFIED HYDRONEPHROSIS Qualifiers: Hydronephrosis type: unspecified Qualified Code(s): N13.30 - Unspecified hydronephrosis Assessment/Plan Chest CTA negative for PE, significant bilateral pleural effusions, bilateral moderate hydronephrosis with perinephric stranding L>R Echo showed mild cLVH, normal LV fxn, mild decreased RV fxn, mild MR, TR, mild- mod AR, small pericardial effusion Renal u/s showed mild-mod left hydro without stones 1. Patella fracture secondary to mechanical fall post ORIF 2. 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 MVP 5. HTN/HCVD 6. Hyperlipidemia 7. Hypothyroidism 8. History of GERD/esophageal spasm 9. Paroxysmal atrial fibrillation in sinus rhythm 10. Acute on CKD resolved 11. 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 Mild-mod left hydronephrosis 13. History of right posterior cerebral artery stroke PLAN: 1. Continue Lopressor 50 bid, Lisinopril 10 qd and Lipitor 10 qhs 2. Continue Eliquis 2.5 bid (age>80, wt<60 kg, Cr<1.5) 3. Decrease Lasix 40 IV qd with monitor diuretic response, renal fxn and electrolytes, replete K, BD, O2 to maintain saO2 4. Pain management, knee immobilizer, GI prophylaxis, OOB to chair if possible 5. Complete ertapenem course for e.coli ESBL per ID
--- NOTE | 2016-05-03 17:13 | EKG ---
Test Reason : Blood Pressure : / mmHG Vent. Rate : 086 BPM Atrial Rate : 086 BPM P-R Int : 150 ms QRS Dur : 076 ms QT Int : 380 ms P-R-T Axes : 031 000 -140 degrees QTc Int : 454 ms NORMAL SINUS RHYTHM ST ST ABNORMAL ECG WHEN COMPARED WITH ECG OF 26-APR-2016 09:34, SINUS RHYTHM HAS REPLACED ATRIAL FIBRILLATION VENT. RATE HAS DECREASED BY 49 BPM Confirmed by REEMA AUGUSTE, MARTA ([id number]) on 05/03/2016 5:12:56 PM Referred By: WILLIAN SABILLON Overread By: MARTA BENAVIDEZ MD
[2016-05-03 17:41] LABS: TROPONIN I < 0.02 ng/ml (0.00-0.05)
[2016-05-03] MEDS: oxyCODONE HCL 5 MG TABLET PO PRN (22:57)
[2016-05-03] MEDS: ATORVASTATIN CA 10 MG TABLET (FP) PO SCH (22:58)
[2016-05-03] MEDS: RANITIDINE HCL 150 MG TABLET (FP) PO SCH (22:58)
[2016-05-04] MEDS: LEVOTHYROXINE NA 100 MCG TABLET (FP) PO SCH (06:20)
[2016-05-04] MEDS ORDERED: PT OWN MED DRAWER 7, Y5N ONE (09:47)
[2016-05-04] MEDS: BACITRACIN 30 GM TUBE TOPICAL OINTMENT TP SCH ×2 (09:51→21:47)
[2016-05-04] MEDS: DOCUSATE SODIUM 100 MG CAPSULE (FP) PO SCH ×2 (09:51→21:48)
[2016-05-04] MEDS: FUROSEMIDE 40 MG/4 ML INJECTABLE VIAL IVPUSH SCH (09:52)
[2016-05-04] MEDS: POLYETHYLENE GLYCOL 3350 119 GM BTL PO SCH ×2 (09:52→21:49)
[2016-05-04] MEDS: CHOLECALCIFEROL (VITAMIN D3) 400 UNIT TABLET (FP) PO SCH (09:52)
[2016-05-04] MEDS: METOPROLOL TARTRATE 50 MG TABLET (FP) PO SCH ×2 (09:52→21:48)
[2016-05-04] MEDS: PANTOPRAZOLE 40 MG TABLET (FP) PO SCH (09:52)
[2016-05-04] MEDS: APIXABAN 2.5 MG TABLET PO SCH ×2 (09:52→21:48)
[2016-05-04] MEDS: ERTAPENEM SODIUM 1 GM in SODIUM CHLORIDE 50 ML IVPB SCH (09:52)
[2016-05-04] MEDS: LISINOPRIL 10 MG TABLET (FP) PO SCH (09:52)
--- NOTE | 2016-05-04 10:43 | PN ---
Progress Note, Physician History of Present Illness: pulmonary alert,very weak,c/o generalized pains,-sob - Current Medication List Current Medications: Active Medications Acetaminophen (Tylenol -) 650 mg PO Q6H PRN PRN Reason: PAIN SCALE 6-10 Last Admin: 05/02/16 14:43 Dose: 650 mg Al Hydroxide/Mg Hydroxide (Mylanta Oral Suspension -) 30 ml PO Q6H PRN PRN Reason: DYSPEPSIA Albuterol/Ipratropium (Duoneb -) 1 amp NEB Q6H PRN PRN Reason: SHORTNESS OF BREATH Last Admin: 05/02/16 11:13 Dose: 1 amp Apixaban (Eliquis -) 2.5 mg PO BID [facility] Last Admin: 05/04/16 09:52 Dose: 2.5 mg Atorvastatin Calcium (Lipitor -) 10 mg PO HS [facility] Last Admin: 05/03/16 22:58 Dose: 10 mg Bacitracin (Bacitracin -) 1 applic TP BID [facility] Last Admin: 05/04/16 09:51 Dose: Not Given Cholecalciferol (Vitamin D3 -) 400 unit PO DAILY [facility] Last Admin: 05/04/16 09:52 Dose: 400 unit Diltiazem HCl (Cardizem Injection -) 10 mg IVPUSH Q6H PRN Last Admin: 04/28/16 13:05 Dose: 10 mg Docusate Sodium (Colace -) 100 mg PO BID [facility] Last Admin: 05/04/16 09:51 Dose: Not Given Furosemide (Lasix Injection -) 40 mg IVPUSH DAILY [facility] Last Admin: 05/04/16 09:52 Dose: 40 mg Ertapenem 1 gm/ Sodium (Chloride) 50 mls @ 50 mls/hr IVPB DAILY [facility] Last Admin: 05/04/16 09:52 Dose: 50 mls/hr Levothyroxine Sodium (Synthroid -) 100 mcg PO DAILY@0700 [facility] Last Admin: 05/04/16 06:20 Dose: 100 mcg Lisinopril (Prinivil) 10 mg PO DAILY [facility] Last Admin: 05/04/16 09:52 Dose: 10 mg Metoprolol Tartrate (Lopressor -) 50 mg PO BID [facility] Last Admin: 05/04/16 09:52 Dose: 50 mg Morphine Sulfate (Morphine Injection -) 2 mg IVPUSH Q3H PRN PRN Reason: PAIN Last Admin: 05/03/16 08:34 Dose: 2 mg Nitroglycerin (Nitrostat -) 0.4 mg SL PRN PRN Ondansetron HCl (Zofran Odt -) 4 mg SL Q8H PRN PRN Reason: NAUSEA Last Admin: 04/25/16 09:44 Dose: 4 mg Oxycodone HCl (Roxicodone -) 5 mg PO Q4H PRN PRN Reason: PAIN Last Admin: 05/03/16 22:57 Dose: 5 mg Pantoprazole Sodium (Protonix -) 40 mg PO DAILY [facility] Last Admin: 05/04/16 09:52 Dose: 40 mg Polyethylene Glycol (Miralax (For Daily Use) -) 17 gm PO BID [facility] Last Admin: 05/04/16 09:52 Dose: Not Given Potassium Chloride (K-Dur -) 40 meq PO DAILY [facility] Last Admin: 05/03/16 09:28 Dose: 40 meq Ranitidine HCl (Zantac -) 150 mg PO HS [facility] Last Admin: 05/03/16 22:58 Dose: 150 mg - Objective Vital Signs: Vital Signs Temperature 97 F L 05/04/16 05:00 Pulse Rate 66 05/04/16 05:00 Respiratory Rate 20 05/04/16 05:00 Blood Pressure 110/53 05/04/16 05:00 O2 Sat by Pulse Oximetry (%) 98 05/03/16 21:00 Constitutional: Yes: Well Nourished, Calm, Other (weak) Eyes: Yes: WNL HENT: Yes: WNL Neck: Yes: WNL Cardiovascular: Yes: Pulse Irregular, S1, S2 Respiratory: Yes: Diminished (poor inspiratory effort) Extremities: Yes: WNL Edema: No Labs: CBC, BMP 05/03/16 05:35 05/03/16 05:35 INR, PTT INR 1.81 (0.82-1.09) H D 04/29/16 05:45 - ....Imaging Chest X-ray: Report Reviewed, Image Reviewed (improving congestion and gonzalo effusions) Assessment/Plan Problem List - Problems (1) Atrial fibrillation Code(s): I48.91 - UNSPECIFIED ATRIAL FIBRILLATION Qualifiers: Atrial fibrillation type: paroxysmal Qualified Code(s): I48.0 - Paroxysmal atrial fibrillation (2) History of stroke Code(s): Z86.73 - PRSNL HX OF TIA (TIA), AND CEREB INFRC W/O RESID DEFICITS (3) Nasal bone fracture Code(s): S02.2XXA - FRACTURE OF NASAL BONES, INIT ENCNTR FOR CLOSED FRACTURE (4) Right patella fracture Code(s): S82.001A - UNSP FRACTURE OF RIGHT PATELLA, INIT FOR CLOS FX Qualifiers: Encounter type: initial encounter Fracture type: closed Fracture morphology: unspecified fracture morphology Fracture alignment: displaced Qualified Code(s): S82.001A - Unspecified fracture of right patella, initial encounter for closed fracture (5) GERD (gastroesophageal reflux disease) Code(s): K21.9 - GASTRO-ESOPHAGEAL REFLUX DISEASE WITHOUT ESOPHAGITIS Qualifiers: Esophagitis presence: without esophagitis Qualified Code(s): K21.9 - Gastro-esophageal reflux disease without esophagitis (6) Hypercholesteremia Code(s): E78.0 - PURE HYPERCHOLESTEROLEMIA * DO NOT USE * (7) Hypertension Code(s): I10 - ESSENTIAL (PRIMARY) HYPERTENSION Qualifiers: Hypertension type: essential hypertension Qualified Code(s): I10 - Essential (primary) hypertension (8) Hypothyroid Code(s): E03.9 - HYPOTHYROIDISM, UNSPECIFIED Qualifiers: Hypothyroidism type: unspecified Qualified Code(s): E03.9 - Hypothyroidism, unspecified Assessment/Plan PLAN: O2 as needed AC lasix monitor lytes ,renal function antibiotics as per id daily wts pt evaluation oob DR MASON
[2016-05-04] MEDS: POTASSIUM CHLORIDE TABS 20 MEQ TABLET.ER (FP) PO SCH (10:51)
--- NOTE | 2016-05-04 11:23 | PN ---
Progress Note, Physician Chief Complaint: Events noted (+) weakness Remains in sinus rhythm on monitor Denies chest pain or SOB - Current Medication List Current Medications: Active Medications Acetaminophen (Tylenol -) 650 mg PO Q6H PRN PRN Reason: PAIN SCALE 6-10 Last Admin: 05/02/16 14:43 Dose: 650 mg Al Hydroxide/Mg Hydroxide (Mylanta Oral Suspension -) 30 ml PO Q6H PRN PRN Reason: DYSPEPSIA Albuterol/Ipratropium (Duoneb -) 1 amp NEB Q6H PRN PRN Reason: SHORTNESS OF BREATH Last Admin: 05/02/16 11:13 Dose: 1 amp Apixaban (Eliquis -) 2.5 mg PO BID [facility] Last Admin: 05/04/16 09:52 Dose: 2.5 mg Atorvastatin Calcium (Lipitor -) 10 mg PO HS [facility] Last Admin: 05/03/16 22:58 Dose: 10 mg Bacitracin (Bacitracin -) 1 applic TP BID [facility] Last Admin: 05/04/16 09:51 Dose: Not Given Cholecalciferol (Vitamin D3 -) 400 unit PO DAILY [facility] Last Admin: 05/04/16 09:52 Dose: 400 unit Diltiazem HCl (Cardizem Injection -) 10 mg IVPUSH Q6H PRN Last Admin: 04/28/16 13:05 Dose: 10 mg Docusate Sodium (Colace -) 100 mg PO BID [facility] Last Admin: 05/04/16 09:51 Dose: Not Given Furosemide (Lasix Injection -) 40 mg IVPUSH DAILY [facility] Last Admin: 05/04/16 09:52 Dose: 40 mg Ertapenem 1 gm/ Sodium (Chloride) 50 mls @ 50 mls/hr IVPB DAILY [facility] Last Admin: 05/04/16 09:52 Dose: 50 mls/hr Levothyroxine Sodium (Synthroid -) 100 mcg PO DAILY@0700 [facility] Last Admin: 05/04/16 06:20 Dose: 100 mcg Lisinopril (Prinivil) 10 mg PO DAILY [facility] Last Admin: 05/04/16 09:52 Dose: 10 mg Metoprolol Tartrate (Lopressor -) 50 mg PO BID [facility] Last Admin: 05/04/16 09:52 Dose: 50 mg Morphine Sulfate (Morphine Injection -) 2 mg IVPUSH Q3H PRN PRN Reason: PAIN Last Admin: 05/03/16 08:34 Dose: 2 mg Nitroglycerin (Nitrostat -) 0.4 mg SL PRN PRN Ondansetron HCl (Zofran Odt -) 4 mg SL Q8H PRN PRN Reason: NAUSEA Last Admin: 04/25/16 09:44 Dose: 4 mg Oxycodone HCl (Roxicodone -) 5 mg PO Q4H PRN PRN Reason: PAIN Last Admin: 05/03/16 22:57 Dose: 5 mg Pantoprazole Sodium (Protonix -) 40 mg PO DAILY [facility] Last Admin: 05/04/16 09:52 Dose: 40 mg Polyethylene Glycol (Miralax (For Daily Use) -) 17 gm PO BID [facility] Last Admin: 05/04/16 09:52 Dose: Not Given Potassium Chloride (K-Dur -) 40 meq PO DAILY [facility] Last Admin: 05/04/16 10:51 Dose: 40 meq Ranitidine HCl (Zantac -) 150 mg PO HS [facility] Last Admin: 05/03/16 22:58 Dose: 150 mg - Objective Vital Signs: Vital Signs Temperature 97 F L 05/04/16 05:00 Pulse Rate 66 05/04/16 05:00 Respiratory Rate 20 05/04/16 05:00 Blood Pressure 110/53 05/04/16 05:00 O2 Sat by Pulse Oximetry (%) 98 05/03/16 21:00 Neck: Yes: Supple Cardiovascular: Yes: Regular Rate and Rhythm, S1, S2 Respiratory: Yes: Diminished Gastrointestinal: Yes: Normal Bowel Sounds, Soft. No: Tenderness Edema: No Additional Findings/Remarks: - Review of Systems Constitutional: denies: Chills, Fever Cardiovascular: denies: Chest Pain, Palpitations, Shortness of Breath Respiratory: denies: Cough, denies: Hemoptysis, Orthopnea, SOB, SOB on Exertion , Wheezing Gastrointestinal: denies: No Symptoms, Abdominal Pain, Constipation, Diarrhea, Dysphagia, Melena, Nausea, Rectal Bleeding, Vomiting Genitourinary: denies: Dysuria Musculoskeletal: denies: Joint Pain Neurological: denies: Dizziness, Headache, Seizure, Syncope Labs: CBC, BMP 05/03/16 05:35 05/03/16 05:35 Problem List - Problems (1) Nasal bone fracture Code(s): S02.2XXA - FRACTURE OF NASAL BONES, INIT ENCNTR FOR CLOSED FRACTURE (2) Right patella fracture Code(s): S82.001A - UNSP FRACTURE OF RIGHT PATELLA, INIT FOR CLOS FX Qualifiers: Encounter type: initial encounter Fracture type: closed Fracture morphology: unspecified fracture morphology Fracture alignment: displaced Qualified Code(s): S82.001A - Unspecified fracture of right patella, initial encounter for closed fracture (3) GERD (gastroesophageal reflux disease) Code(s): K21.9 - GASTRO-ESOPHAGEAL REFLUX DISEASE WITHOUT ESOPHAGITIS Qualifiers: Esophagitis presence: without esophagitis Qualified Code(s): K21.9 - Gastro-esophageal reflux disease without esophagitis (4) Hypercholesteremia Code(s): E78.0 - PURE HYPERCHOLESTEROLEMIA * DO NOT USE * (5) Hypertension Code(s): I10 - ESSENTIAL (PRIMARY) HYPERTENSION Qualifiers: Hypertension type: essential hypertension Qualified Code(s): I10 - Essential (primary) hypertension (6) Hypothyroid Code(s): E03.9 - HYPOTHYROIDISM, UNSPECIFIED Qualifiers: Hypothyroidism type: unspecified Qualified Code(s): E03.9 - Hypothyroidism, unspecified (7) Atrial fibrillation Code(s): I48.91 - UNSPECIFIED ATRIAL FIBRILLATION Qualifiers: Atrial fibrillation type: paroxysmal Qualified Code(s): I48.0 - Paroxysmal atrial fibrillation Assessment/Plan 1. Patella fracture secondary to mechanical fall post ORIF 2. 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 MVP 5. HTN/HCVD 6. Hyperlipidemia 7. Hypothyroidism 8. History of GERD/esophageal spasm 9. Paroxysmal atrial fibrillation in sinus rhythm 10. Acute on CKD 11. Leukocytosis - left pyelonephritis 12. Mild-moderate left hydronephrosis PLAN: 1. Continue Lopressor 50 mg BID, Lisinopril 10 mg QD and Lipitor 10 mg QHS 2. Continue Eliquis 2.5 mg BID 3. Lasix 40 mg IV QD with monitoring renal function and electrolytes 4. DVT and GI prophylaxis 5. Complete antibiotic course Further plans are to follow Shakir Cheney MD
--- NOTE | 2016-05-04 12:25 | PN ---
Progress Note, Physician Chief Complaint: Ms Mei says she feels weak. Also having diarrhea. No chest pain today. - Current Medication List Current Medications: Active Medications Acetaminophen (Tylenol -) 650 mg PO Q6H PRN PRN Reason: PAIN SCALE 6-10 Last Admin: 05/02/16 14:43 Dose: 650 mg Al Hydroxide/Mg Hydroxide (Mylanta Oral Suspension -) 30 ml PO Q6H PRN PRN Reason: DYSPEPSIA Albuterol/Ipratropium (Duoneb -) 1 amp NEB Q6H PRN PRN Reason: SHORTNESS OF BREATH Last Admin: 05/02/16 11:13 Dose: 1 amp Apixaban (Eliquis -) 2.5 mg PO BID [facility] Last Admin: 05/04/16 09:52 Dose: 2.5 mg Atorvastatin Calcium (Lipitor -) 10 mg PO HS [facility] Last Admin: 05/03/16 22:58 Dose: 10 mg Bacitracin (Bacitracin -) 1 applic TP BID [facility] Last Admin: 05/04/16 09:51 Dose: Not Given Cholecalciferol (Vitamin D3 -) 400 unit PO DAILY [facility] Last Admin: 05/04/16 09:52 Dose: 400 unit Diltiazem HCl (Cardizem Injection -) 10 mg IVPUSH Q6H PRN Last Admin: 04/28/16 13:05 Dose: 10 mg Docusate Sodium (Colace -) 100 mg PO BID [facility] Last Admin: 05/04/16 09:51 Dose: Not Given Furosemide (Lasix Injection -) 40 mg IVPUSH DAILY [facility] Last Admin: 05/04/16 09:52 Dose: 40 mg Ertapenem 1 gm/ Sodium (Chloride) 50 mls @ 50 mls/hr IVPB DAILY [facility] Last Admin: 05/04/16 09:52 Dose: 50 mls/hr Levothyroxine Sodium (Synthroid -) 100 mcg PO DAILY@0700 [facility] Last Admin: 05/04/16 06:20 Dose: 100 mcg Lisinopril (Prinivil) 10 mg PO DAILY [facility] Last Admin: 05/04/16 09:52 Dose: 10 mg Metoprolol Tartrate (Lopressor -) 50 mg PO BID [facility] Last Admin: 05/04/16 09:52 Dose: 50 mg Morphine Sulfate (Morphine Injection -) 2 mg IVPUSH Q3H PRN PRN Reason: PAIN Last Admin: 05/03/16 08:34 Dose: 2 mg Nitroglycerin (Nitrostat -) 0.4 mg SL PRN PRN Ondansetron HCl (Zofran Odt -) 4 mg SL Q8H PRN PRN Reason: NAUSEA Last Admin: 04/25/16 09:44 Dose: 4 mg Oxycodone HCl (Roxicodone -) 5 mg PO Q4H PRN PRN Reason: PAIN Last Admin: 05/03/16 22:57 Dose: 5 mg Pantoprazole Sodium (Protonix -) 40 mg PO DAILY [facility] Last Admin: 05/04/16 09:52 Dose: 40 mg Polyethylene Glycol (Miralax (For Daily Use) -) 17 gm PO BID [facility] Last Admin: 05/04/16 09:52 Dose: Not Given Potassium Chloride (K-Dur -) 40 meq PO DAILY [facility] Last Admin: 05/04/16 10:51 Dose: 40 meq Ranitidine HCl (Zantac -) 150 mg PO HS [facility] Last Admin: 05/03/16 22:58 Dose: 150 mg - Objective Vital Signs: Vital Signs Temperature 97 F L 05/04/16 05:00 Pulse Rate 66 05/04/16 05:00 Respiratory Rate 20 05/04/16 05:00 Blood Pressure 110/53 05/04/16 05:00 O2 Sat by Pulse Oximetry (%) 98 05/03/16 21:00 Constitutional: Yes: No Distress, Calm Cardiovascular: Yes: Regular Rate and Rhythm. No: Gallop, Murmur, Rub Respiratory: Yes: Regular, CTA Bilaterally, On Nasal O2. No: Rales, Rhonchi, Wheezes Gastrointestinal: Yes: Normal Bowel Sounds, Soft. No: Distention, Tenderness Extremities: Yes: Other (in knee brace) Edema: No Labs: CBC, BMP 05/03/16 05:35 05/03/16 05:35 INR, PTT INR 1.81 (0.82-1.09) H D 04/29/16 05:45 Problem List - Problems (1) Chest pain Code(s): R07.9 - CHEST PAIN, UNSPECIFIED (2) Pyelonephritis due to Escherichia coli Code(s): N12 - TUBULO-INTERSTITIAL NEPHRITIS, NOT SPCF ACUTE OR CHRONIC B96.20 - UNSP ESCHERICHIA COLI THE CAUSE OF DISEASES CLASSD ELSWHR (3) Sepsis Code(s): A41.9 - SEPSIS, UNSPECIFIED ORGANISM (4) Right patella fracture Code(s): S82.001A - UNSP FRACTURE OF RIGHT PATELLA, INIT FOR CLOS FX Qualifiers: Encounter type: initial encounter Fracture type: closed Fracture morphology: unspecified fracture morphology Fracture alignment: displaced Qualified Code(s): S82.001A - Unspecified fracture of right patella, initial encounter for closed fracture (5) GERD (gastroesophageal reflux disease) Code(s): K21.9 - GASTRO-ESOPHAGEAL REFLUX DISEASE WITHOUT ESOPHAGITIS Qualifiers: Esophagitis presence: without esophagitis Qualified Code(s): K21.9 - Gastro-esophageal reflux disease without esophagitis (6) Nasal bone fracture Code(s): S02.2XXA - FRACTURE OF NASAL BONES, INIT ENCNTR FOR CLOSED FRACTURE (7) Hypercholesteremia Code(s): E78.0 - PURE HYPERCHOLESTEROLEMIA * DO NOT USE * (8) Hypertension Code(s): I10 - ESSENTIAL (PRIMARY) HYPERTENSION Qualifiers: Hypertension type: essential hypertension Qualified Code(s): I10 - Essential (primary) hypertension (9) Hypothyroid Code(s): E03.9 - HYPOTHYROIDISM, UNSPECIFIED Qualifiers: Hypothyroidism type: unspecified Qualified Code(s): E03.9 - Hypothyroidism, unspecified Assessment/Plan (1) Chest pain -resolved -cardiology following (2) ESBL pyelonephritis with sepsis -ID following -continue ertapenem per ID recommendations -still with leukocytosis (3) Right patella fracture Assessment/Plan: -s/p surgery -continue pain control -will need SNF placement -continue PT, encouraged patient to walk with PT Code(s): S82.001A - UNSP FRACTURE OF RIGHT PATELLA, INIT FOR CLOS FX Qualifiers: Encounter type: initial encounter Fracture type: closed Fracture morphology: unspecified fracture morphology Fracture alignment: displaced Qualified Code(s): S82.001A - Unspecified fracture of right patella, initial encounter for closed fracture (4) Hypercholesteremia Assessment/Plan: -continue lipitor Code(s): E78.0 - PURE HYPERCHOLESTEROLEMIA * DO NOT USE * (5) Hypertension Assessment/Plan: -continue toprol and lisinopril -continue to monitor Code(s): I10 - ESSENTIAL (PRIMARY) HYPERTENSION (6) Hypothyroid Assessment/Plan: -continue synthroid Code(s): E03.9 - HYPOTHYROIDISM, UNSPECIFIED (7) Pleural effusions -check chest x-ray (8) Atrial fibrillation -currently in sinus rhythm -continue metoprolol and diltiazem -continue eliquis (9) Diarrhea -concerning since on antibiotics and now with leukocytosis -check for c. diff -ID following
[2016-05-04] MEDS: oxyCODONE HCL 5 MG TABLET PO PRN ×2 (13:48→21:49)
[2016-05-04] MEDS: ACETAMINOPHEN 325 MG TABLET (FP) PO PRN ×2 (13:49→21:49)
--- NOTE | 2016-05-04 16:11 | PN ---
Progress Note, Physician History of Present Illness: C/O R knee pain, loose stool Nurse reports two episodes of loose stool No c/o dysuria No abdominal pain No fever/chills - Current Medication List Current Medications: Active Medications Acetaminophen (Tylenol -) 650 mg PO Q6H PRN PRN Reason: PAIN SCALE 6-10 Last Admin: 05/04/16 13:49 Dose: 650 mg Al Hydroxide/Mg Hydroxide (Mylanta Oral Suspension -) 30 ml PO Q6H PRN PRN Reason: DYSPEPSIA Albuterol/Ipratropium (Duoneb -) 1 amp NEB Q6H PRN PRN Reason: SHORTNESS OF BREATH Last Admin: 05/02/16 11:13 Dose: 1 amp Apixaban (Eliquis -) 2.5 mg PO BID [facility] Last Admin: 05/04/16 09:52 Dose: 2.5 mg Atorvastatin Calcium (Lipitor -) 10 mg PO HS [facility] Last Admin: 05/03/16 22:58 Dose: 10 mg Bacitracin (Bacitracin -) 1 applic TP BID [facility] Last Admin: 05/04/16 09:51 Dose: Not Given Cholecalciferol (Vitamin D3 -) 400 unit PO DAILY [facility] Last Admin: 05/04/16 09:52 Dose: 400 unit Diltiazem HCl (Cardizem Injection -) 10 mg IVPUSH Q6H PRN Last Admin: 04/28/16 13:05 Dose: 10 mg Docusate Sodium (Colace -) 100 mg PO BID [facility] Last Admin: 05/04/16 09:51 Dose: Not Given Furosemide (Lasix Injection -) 40 mg IVPUSH DAILY [facility] Last Admin: 05/04/16 09:52 Dose: 40 mg Ertapenem 1 gm/ Sodium (Chloride) 50 mls @ 50 mls/hr IVPB DAILY [facility] Last Admin: 05/04/16 09:52 Dose: 50 mls/hr Levothyroxine Sodium (Synthroid -) 100 mcg PO DAILY@0700 [facility] Last Admin: 05/04/16 06:20 Dose: 100 mcg Lisinopril (Prinivil) 10 mg PO DAILY [facility] Last Admin: 05/04/16 09:52 Dose: 10 mg Metoprolol Tartrate (Lopressor -) 50 mg PO BID [facility] Last Admin: 05/04/16 09:52 Dose: 50 mg Morphine Sulfate (Morphine Injection -) 2 mg IVPUSH Q3H PRN PRN Reason: PAIN Last Admin: 05/03/16 08:34 Dose: 2 mg Nitroglycerin (Nitrostat -) 0.4 mg SL PRN PRN Ondansetron HCl (Zofran Odt -) 4 mg SL Q8H PRN PRN Reason: NAUSEA Last Admin: 04/25/16 09:44 Dose: 4 mg Oxycodone HCl (Roxicodone -) 5 mg PO Q4H PRN PRN Reason: PAIN Last Admin: 05/04/16 13:48 Dose: 5 mg Pantoprazole Sodium (Protonix -) 40 mg PO DAILY [facility] Last Admin: 05/04/16 09:52 Dose: 40 mg Polyethylene Glycol (Miralax (For Daily Use) -) 17 gm PO BID [facility] Last Admin: 05/04/16 09:52 Dose: Not Given Potassium Chloride (K-Dur -) 40 meq PO DAILY [facility] Last Admin: 05/04/16 10:51 Dose: 40 meq Ranitidine HCl (Zantac -) 150 mg PO HS [facility] Last Admin: 05/03/16 22:58 Dose: 150 mg - Objective Vital Signs: Vital Signs Temperature 97.2 F L 05/04/16 13:00 Pulse Rate 63 05/04/16 13:00 Respiratory Rate 20 05/04/16 13:00 Blood Pressure 111/56 05/04/16 13:00 O2 Sat by Pulse Oximetry (%) 98 05/03/16 21:00 Constitutional: Yes: No Distress Eyes: Yes: Conjunctiva Clear Cardiovascular: Yes: Regular Rate and Rhythm, S1, S2 Respiratory: Yes: CTA Bilaterally Gastrointestinal: Yes: Normal Bowel Sounds, Soft. No: Tenderness Edema: No Labs: CBC, BMP 05/03/16 05:35 05/03/16 05:35 INR, PTT INR 1.81 (0.82-1.09) H D 04/29/16 05:45 Assessment/Plan Leukocytosis- probable source- improved + urine c/s ESBL Possible pyelonephritis PCN / Quinolone allergy Continue ertapenem 1gm IVPB q24h Contact precautions
[2016-05-04] MEDS: ATORVASTATIN CA 10 MG TABLET (FP) PO SCH (21:48)
[2016-05-04] MEDS: RANITIDINE HCL 150 MG TABLET (FP) PO SCH (21:49)
[2016-05-05] MEDS: oxyCODONE HCL 5 MG TABLET PO PRN ×3 (04:03→21:23)
[2016-05-05] MEDS: ACETAMINOPHEN 325 MG TABLET (FP) PO PRN (04:04)
[2016-05-05] MEDS: LEVOTHYROXINE NA 100 MCG TABLET (FP) PO SCH (06:40)
[2016-05-05 07:11] LABS: BASOPHIL 0.4 % (0-2.0); EOSINOPHIL 1.4 % (0-4.5); MCH 30.3 pg (25.7-33.7); MCHC 32.6 g/dl (32.0-36.0); MEAN CELL VOLUME 93.1 fl (80-96); MEAN PLT VOLUME 8.6 fl (7.5-11.1); NEUTROPHILS 83.4 % (42.8-82.8); PLATELET COUNT 432 K/MM3 (134-434); RDW 14.8 % (11.6-15.6); WHITE BLOOD COUNT 13.5 K/mm3 (4.0-10.0)
[2016-05-05 07:57] LABS: CREATININE 0.7 mg/dL (0.55-1.02); MAGNESIUM 2.7 mg/dL (1.8-2.4); PHOSPHOROUS 3.7 mg/dL (2.5-4.9)
[2016-05-05] MEDS ORDERED: PT OWN MED DRAWER 7, Y5N ONE (08:03)
[2016-05-05] MEDS: ERTAPENEM SODIUM 1 GM in SODIUM CHLORIDE 50 ML IVPB SCH (09:39)
[2016-05-05] MEDS: PANTOPRAZOLE 40 MG TABLET (FP) PO SCH (09:40)
[2016-05-05] MEDS: APIXABAN 2.5 MG TABLET PO SCH ×2 (09:40→21:22)
[2016-05-05] MEDS: LISINOPRIL 10 MG TABLET (FP) PO SCH (09:40)
[2016-05-05] MEDS: POTASSIUM CHLORIDE TABS 20 MEQ TABLET.ER (FP) PO SCH (09:40)
[2016-05-05] MEDS: DOCUSATE SODIUM 100 MG CAPSULE (FP) PO SCH ×2 (09:40→21:22)
[2016-05-05] MEDS: POLYETHYLENE GLYCOL 3350 119 GM BTL PO SCH ×2 (09:40→21:23)
[2016-05-05] MEDS: FUROSEMIDE 40 MG/4 ML INJECTABLE VIAL IVPUSH SCH (09:40)
[2016-05-05] MEDS: METOPROLOL TARTRATE 50 MG TABLET (FP) PO SCH ×2 (09:40→21:22)
[2016-05-05] MEDS: BACITRACIN 30 GM TUBE TOPICAL OINTMENT TP SCH ×2 (09:41→21:22)
[2016-05-05] MEDS: CHOLECALCIFEROL (VITAMIN D3) 400 UNIT TABLET (FP) PO SCH (09:41)
--- NOTE | 2016-05-05 10:10 | PN ---
Progress Note, Physician Chief Complaint: Ms Mei complains of knee pain. No cp, sob, n/v. Diarrhea improved. - Current Medication List Current Medications: Active Medications Acetaminophen (Tylenol -) 650 mg PO Q6H PRN PRN Reason: PAIN SCALE 6-10 Last Admin: 05/05/16 04:04 Dose: 650 mg Al Hydroxide/Mg Hydroxide (Mylanta Oral Suspension -) 30 ml PO Q6H PRN PRN Reason: DYSPEPSIA Albuterol/Ipratropium (Duoneb -) 1 amp NEB Q6H PRN PRN Reason: SHORTNESS OF BREATH Last Admin: 05/02/16 11:13 Dose: 1 amp Apixaban (Eliquis -) 2.5 mg PO BID [facility] Last Admin: 05/05/16 09:40 Dose: 2.5 mg Atorvastatin Calcium (Lipitor -) 10 mg PO HS [facility] Last Admin: 05/04/16 21:48 Dose: 10 mg Bacitracin (Bacitracin -) 1 applic TP BID [facility] Last Admin: 05/05/16 09:41 Dose: Not Given Cholecalciferol (Vitamin D3 -) 400 unit PO DAILY [facility] Last Admin: 05/05/16 09:41 Dose: 400 unit Diltiazem HCl (Cardizem Injection -) 10 mg IVPUSH Q6H PRN Last Admin: 04/28/16 13:05 Dose: 10 mg Docusate Sodium (Colace -) 100 mg PO BID [facility] Last Admin: 05/05/16 09:40 Dose: 100 mg Furosemide (Lasix Injection -) 40 mg IVPUSH DAILY [facility] Last Admin: 05/05/16 09:40 Dose: 40 mg Ertapenem 1 gm/ Sodium (Chloride) 50 mls @ 50 mls/hr IVPB DAILY [facility] Last Admin: 05/05/16 09:39 Dose: 50 mls/hr Levothyroxine Sodium (Synthroid -) 100 mcg PO DAILY@0700 [facility] Last Admin: 05/05/16 06:40 Dose: 100 mcg Lisinopril (Prinivil) 10 mg PO DAILY [facility] Last Admin: 05/05/16 09:40 Dose: 10 mg Metoprolol Tartrate (Lopressor -) 50 mg PO BID [facility] Last Admin: 05/05/16 09:40 Dose: 50 mg Morphine Sulfate (Morphine Injection -) 2 mg IVPUSH Q3H PRN PRN Reason: PAIN Last Admin: 05/03/16 08:34 Dose: 2 mg Nitroglycerin (Nitrostat -) 0.4 mg SL PRN PRN Ondansetron HCl (Zofran Odt -) 4 mg SL Q8H PRN PRN Reason: NAUSEA Last Admin: 04/25/16 09:44 Dose: 4 mg Oxycodone HCl (Roxicodone -) 5 mg PO Q4H PRN PRN Reason: PAIN Last Admin: 05/05/16 04:03 Dose: 5 mg Pantoprazole Sodium (Protonix -) 40 mg PO DAILY [facility] Last Admin: 05/05/16 09:40 Dose: 40 mg Polyethylene Glycol (Miralax (For Daily Use) -) 17 gm PO BID [facility] Last Admin: 05/05/16 09:40 Dose: Not Given Potassium Chloride (K-Dur -) 40 meq PO DAILY [facility] Last Admin: 05/05/16 09:40 Dose: 40 meq Ranitidine HCl (Zantac -) 150 mg PO HS [facility] Last Admin: 05/04/16 21:49 Dose: 150 mg - Objective Vital Signs: Vital Signs Temperature 97.8 F 05/05/16 08:30 Pulse Rate 59 L 05/05/16 08:30 Respiratory Rate 19 05/05/16 08:38 Blood Pressure 127/59 05/05/16 08:30 O2 Sat by Pulse Oximetry (%) 97 05/04/16 21:00 Constitutional: Yes: Well Nourished, No Distress, Calm Cardiovascular: Yes: Pulse Irregular. No: Tachycardia, Gallop, Murmur, Rub Respiratory: Yes: Regular, CTA Bilaterally. No: Rales, Rhonchi, Wheezes Gastrointestinal: Yes: Normal Bowel Sounds, Soft. No: Distention, Tenderness Extremities: Yes: WNL Edema: Yes Edema: LLE: Trace, RLE: Trace Labs: CBC, BMP 05/05/16 05:35 05/05/16 05:35 INR, PTT INR 1.81 (0.82-1.09) H D 04/29/16 05:45 Problem List - Problems (1) Chest pain Code(s): R07.9 - CHEST PAIN, UNSPECIFIED (2) Pyelonephritis due to Escherichia coli Code(s): N12 - TUBULO-INTERSTITIAL NEPHRITIS, NOT SPCF ACUTE OR CHRONIC B96.20 - UNSP ESCHERICHIA COLI THE CAUSE OF DISEASES CLASSD ELSWHR (3) Sepsis Code(s): A41.9 - SEPSIS, UNSPECIFIED ORGANISM (4) Right patella fracture Code(s): S82.001A - UNSP FRACTURE OF RIGHT PATELLA, INIT FOR CLOS FX Qualifiers: Encounter type: initial encounter Fracture type: closed Fracture morphology: unspecified fracture morphology Fracture alignment: displaced Qualified Code(s): S82.001A - Unspecified fracture of right patella, initial encounter for closed fracture (5) GERD (gastroesophageal reflux disease) Code(s): K21.9 - GASTRO-ESOPHAGEAL REFLUX DISEASE WITHOUT ESOPHAGITIS Qualifiers: Esophagitis presence: without esophagitis Qualified Code(s): K21.9 - Gastro-esophageal reflux disease without esophagitis (6) Nasal bone fracture Code(s): S02.2XXA - FRACTURE OF NASAL BONES, INIT ENCNTR FOR CLOSED FRACTURE (7) Hypercholesteremia Code(s): E78.0 - PURE HYPERCHOLESTEROLEMIA * DO NOT USE * (8) Hypertension Code(s): I10 - ESSENTIAL (PRIMARY) HYPERTENSION Qualifiers: Hypertension type: essential hypertension Qualified Code(s): I10 - Essential (primary) hypertension (9) Hypothyroid Code(s): E03.9 - HYPOTHYROIDISM, UNSPECIFIED Qualifiers: Hypothyroidism type: unspecified Qualified Code(s): E03.9 - Hypothyroidism, unspecified Assessment/Plan (1) Chest pain -resolved -cardiology following (2) ESBL pyelonephritis with sepsis -ID following -continue ertapenem per ID recommendations -leukocytosis improving (3) Right patella fracture Assessment/Plan: -s/p surgery -continue pain control -will need SNF placement -continue PT, encouraged patient to walk with PT Code(s): S82.001A - UNSP FRACTURE OF RIGHT PATELLA, INIT FOR CLOS FX Qualifiers: Encounter type: initial encounter Fracture type: closed Fracture morphology: unspecified fracture morphology Fracture alignment: displaced Qualified Code(s): S82.001A - Unspecified fracture of right patella, initial encounter for closed fracture (4) Hypercholesteremia Assessment/Plan: -continue lipitor Code(s): E78.0 - PURE HYPERCHOLESTEROLEMIA * DO NOT USE * (5) Hypertension Assessment/Plan: -continue toprol and lisinopril -continue to monitor Code(s): I10 - ESSENTIAL (PRIMARY) HYPERTENSION (6) Hypothyroid Assessment/Plan: -continue synthroid Code(s): E03.9 - HYPOTHYROIDISM, UNSPECIFIED (7) Pleural effusions -stable (8) Atrial fibrillation -currently in sinus rhythm -continue metoprolol and diltiazem -continue eliquis (9) Diarrhea -resolving -c. diff negative
--- NOTE | 2016-05-05 10:42 | PN ---
Progress Note (short form) - Note Progress Note: Ortho Pt seen and examined s/p right patella orif dressing c/d/i, calf soft, nt nvi a/p knee immobilizer wbat with immobilizer in place PT dvt ppx pain control orthopedically stable
--- NOTE | 2016-05-05 11:00 | PN ---
Progress Note (short form) - Note Progress Note: PULMONARY OOB TO CHAIR APPEARS STABLE NO OVERALL CHANGE IN CLINICAL EXAM LABS/MEDS/NOTES/IMAGING REVIEWED (1) Atrial fibrillation Code(s): I48.91 - UNSPECIFIED ATRIAL FIBRILLATION Qualifiers: Atrial fibrillation type: paroxysmal Qualified Code(s): I48.0 - Paroxysmal atrial fibrillation (2) History of stroke Code(s): Z86.73 - PRSNL HX OF TIA (TIA), AND CEREB INFRC W/O RESID DEFICITS (3) Nasal bone fracture Code(s): S02.2XXA - FRACTURE OF NASAL BONES, INIT ENCNTR FOR CLOSED FRACTURE (4) Right patella fracture Code(s): S82.001A - UNSP FRACTURE OF RIGHT PATELLA, INIT FOR CLOS FX Qualifiers: Encounter type: initial encounter Fracture type: closed Fracture morphology: unspecified fracture morphology Fracture alignment: displaced Qualified Code(s): S82.001A - Unspecified fracture of right patella, initial encounter for closed fracture (5) GERD (gastroesophageal reflux disease) Code(s): K21.9 - GASTRO-ESOPHAGEAL REFLUX DISEASE WITHOUT ESOPHAGITIS Qualifiers: Esophagitis presence: without esophagitis Qualified Code(s): K21.9 - Gastro-esophageal reflux disease without esophagitis (6) Hypercholesteremia Code(s): E78.0 - PURE HYPERCHOLESTEROLEMIA * DO NOT USE * (7) Hypertension Code(s): I10 - ESSENTIAL (PRIMARY) HYPERTENSION Qualifiers: Hypertension type: essential hypertension Qualified Code(s): I10 - Essential (primary) hypertension (8) Hypothyroid Code(s): E03.9 - HYPOTHYROIDISM, UNSPECIFIED Qualifiers: Hypothyroidism type: unspecified Qualified Code(s): E03.9 - Hypothyroidism, unspecified O2 as needed AC lasix monitor lytes ,renal function antibiotics as per id daily wts pt evaluation oob Jose Alejandro RUBIO MD
--- NOTE | 2016-05-05 12:31 | PN ---
Progress Note, Physician History of Present Illness: C/O R knee pain, loose stool No dysuria No c/o fever/ chills Stool C difficile (-) - Current Medication List Current Medications: Active Medications Acetaminophen (Tylenol -) 650 mg PO Q6H PRN PRN Reason: PAIN SCALE 6-10 Last Admin: 05/05/16 04:04 Dose: 650 mg Al Hydroxide/Mg Hydroxide (Mylanta Oral Suspension -) 30 ml PO Q6H PRN PRN Reason: DYSPEPSIA Albuterol/Ipratropium (Duoneb -) 1 amp NEB Q6H PRN PRN Reason: SHORTNESS OF BREATH Last Admin: 05/02/16 11:13 Dose: 1 amp Apixaban (Eliquis -) 2.5 mg PO BID [facility] Last Admin: 05/05/16 09:40 Dose: 2.5 mg Atorvastatin Calcium (Lipitor -) 10 mg PO HS [facility] Last Admin: 05/04/16 21:48 Dose: 10 mg Bacitracin (Bacitracin -) 1 applic TP BID [facility] Last Admin: 05/05/16 09:41 Dose: Not Given Cholecalciferol (Vitamin D3 -) 400 unit PO DAILY [facility] Last Admin: 05/05/16 09:41 Dose: 400 unit Diltiazem HCl (Cardizem Injection -) 10 mg IVPUSH Q6H PRN Last Admin: 04/28/16 13:05 Dose: 10 mg Docusate Sodium (Colace -) 100 mg PO BID [facility] Last Admin: 05/05/16 09:40 Dose: 100 mg Furosemide (Lasix Injection -) 40 mg IVPUSH DAILY [facility] Last Admin: 05/05/16 09:40 Dose: 40 mg Ertapenem 1 gm/ Sodium (Chloride) 50 mls @ 50 mls/hr IVPB DAILY [facility] Last Admin: 05/05/16 09:39 Dose: 50 mls/hr Levothyroxine Sodium (Synthroid -) 100 mcg PO DAILY@0700 [facility] Last Admin: 05/05/16 06:40 Dose: 100 mcg Lisinopril (Prinivil) 10 mg PO DAILY [facility] Last Admin: 05/05/16 09:40 Dose: 10 mg Metoprolol Tartrate (Lopressor -) 50 mg PO BID [facility] Last Admin: 05/05/16 09:40 Dose: 50 mg Morphine Sulfate (Morphine Injection -) 2 mg IVPUSH Q3H PRN PRN Reason: PAIN Last Admin: 05/03/16 08:34 Dose: 2 mg Nitroglycerin (Nitrostat -) 0.4 mg SL PRN PRN Ondansetron HCl (Zofran Odt -) 4 mg SL Q8H PRN PRN Reason: NAUSEA Last Admin: 04/25/16 09:44 Dose: 4 mg Oxycodone HCl (Roxicodone -) 5 mg PO Q4H PRN PRN Reason: PAIN Last Admin: 05/05/16 04:03 Dose: 5 mg Pantoprazole Sodium (Protonix -) 40 mg PO DAILY [facility] Last Admin: 05/05/16 09:40 Dose: 40 mg Polyethylene Glycol (Miralax (For Daily Use) -) 17 gm PO BID [facility] Last Admin: 05/05/16 09:40 Dose: Not Given Potassium Chloride (K-Dur -) 40 meq PO DAILY [facility] Last Admin: 05/05/16 09:40 Dose: 40 meq Ranitidine HCl (Zantac -) 150 mg PO HS [facility] Last Admin: 05/04/16 21:49 Dose: 150 mg - Objective Vital Signs: Vital Signs Temperature 97.8 F 05/05/16 08:30 Pulse Rate 62 05/05/16 11:38 Respiratory Rate 19 05/05/16 08:38 Blood Pressure 127/59 05/05/16 08:30 O2 Sat by Pulse Oximetry (%) 97 05/05/16 11:38 Constitutional: Yes: No Distress Eyes: Yes: Conjunctiva Clear Cardiovascular: Yes: Regular Rate and Rhythm, S1, S2 Respiratory: Yes: CTA Bilaterally Gastrointestinal: Yes: Normal Bowel Sounds, Soft. No: Tenderness Edema: Yes Edema: LLE: 1+, RLE: 1+ Labs: CBC, BMP 05/05/16 05:35 05/05/16 05:35 INR, PTT INR 1.81 (0.82-1.09) H D 04/29/16 05:45 Assessment/Plan Leukocytosis- probable source- improved + urine c/s ESBL Possible pyelonephritis Day #7 ertapenem PCN / Quinolone allergy Continue ertapenem 1gm IVPB q24h. Complete 10d course Contact precautions
--- NOTE | 2016-05-05 13:36 | PN ---
Progress Note, Physician History of Present Illness: Dyspnea and LE edema resolved with diuresis, remains in sinus rhythm, feels weak. No further chest discomfort. - Current Medication List Current Medications: Active Medications Acetaminophen (Tylenol -) 650 mg PO Q6H PRN PRN Reason: PAIN SCALE 6-10 Last Admin: 05/05/16 04:04 Dose: 650 mg Al Hydroxide/Mg Hydroxide (Mylanta Oral Suspension -) 30 ml PO Q6H PRN PRN Reason: DYSPEPSIA Albuterol/Ipratropium (Duoneb -) 1 amp NEB Q6H PRN PRN Reason: SHORTNESS OF BREATH Last Admin: 05/02/16 11:13 Dose: 1 amp Apixaban (Eliquis -) 2.5 mg PO BID [facility] Last Admin: 05/05/16 09:40 Dose: 2.5 mg Atorvastatin Calcium (Lipitor -) 10 mg PO HS [facility] Last Admin: 05/04/16 21:48 Dose: 10 mg Bacitracin (Bacitracin -) 1 applic TP BID [facility] Last Admin: 05/05/16 09:41 Dose: Not Given Cholecalciferol (Vitamin D3 -) 400 unit PO DAILY [facility] Last Admin: 05/05/16 09:41 Dose: 400 unit Diltiazem HCl (Cardizem Injection -) 10 mg IVPUSH Q6H PRN Last Admin: 04/28/16 13:05 Dose: 10 mg Docusate Sodium (Colace -) 100 mg PO BID [facility] Last Admin: 05/05/16 09:40 Dose: 100 mg Furosemide (Lasix Injection -) 40 mg IVPUSH DAILY [facility] Last Admin: 05/05/16 09:40 Dose: 40 mg Ertapenem 1 gm/ Sodium (Chloride) 50 mls @ 50 mls/hr IVPB DAILY [facility] Last Admin: 05/05/16 09:39 Dose: 50 mls/hr Levothyroxine Sodium (Synthroid -) 100 mcg PO DAILY@0700 [facility] Last Admin: 05/05/16 06:40 Dose: 100 mcg Lisinopril (Prinivil) 10 mg PO DAILY [facility] Last Admin: 05/05/16 09:40 Dose: 10 mg Metoprolol Tartrate (Lopressor -) 50 mg PO BID [facility] Last Admin: 05/05/16 09:40 Dose: 50 mg Morphine Sulfate (Morphine Injection -) 2 mg IVPUSH Q3H PRN PRN Reason: PAIN Last Admin: 05/03/16 08:34 Dose: 2 mg Nitroglycerin (Nitrostat -) 0.4 mg SL PRN PRN Ondansetron HCl (Zofran Odt -) 4 mg SL Q8H PRN PRN Reason: NAUSEA Last Admin: 04/25/16 09:44 Dose: 4 mg Oxycodone HCl (Roxicodone -) 5 mg PO Q4H PRN PRN Reason: PAIN Last Admin: 05/05/16 04:03 Dose: 5 mg Pantoprazole Sodium (Protonix -) 40 mg PO DAILY [facility] Last Admin: 05/05/16 09:40 Dose: 40 mg Polyethylene Glycol (Miralax (For Daily Use) -) 17 gm PO BID [facility] Last Admin: 05/05/16 09:40 Dose: Not Given Potassium Chloride (K-Dur -) 40 meq PO DAILY [facility] Last Admin: 05/05/16 09:40 Dose: 40 meq Ranitidine HCl (Zantac -) 150 mg PO HS [facility] Last Admin: 05/04/16 21:49 Dose: 150 mg - Objective Vital Signs: Vital Signs Temperature 97.8 F 05/05/16 08:30 Pulse Rate 62 05/05/16 11:38 Respiratory Rate 19 05/05/16 08:38 Blood Pressure 127/59 05/05/16 08:30 O2 Sat by Pulse Oximetry (%) 97 05/05/16 11:38 Constitutional: Yes: No Distress, Calm Neck: Yes: Supple Cardiovascular: Yes: Regular Rate and Rhythm Respiratory: Yes: Regular, Diminished, On Nasal O2 Gastrointestinal: Yes: Normal Bowel Sounds, Soft Edema: No Labs: CBC, BMP 05/05/16 05:35 05/05/16 05:35 INR, PTT INR 1.81 (0.82-1.09) H D 04/29/16 05:45 Problem List - Problems (1) Right patella fracture Code(s): S82.001A - UNSP FRACTURE OF RIGHT PATELLA, INIT FOR CLOS FX Qualifiers: Encounter type: initial encounter Fracture type: closed Fracture morphology: unspecified fracture morphology Fracture alignment: displaced Qualified Code(s): S82.001A - Unspecified fracture of right patella, initial encounter for closed fracture (2) Hypercholesteremia Code(s): E78.0 - PURE HYPERCHOLESTEROLEMIA * DO NOT USE * (3) Hypertension Code(s): I10 - ESSENTIAL (PRIMARY) HYPERTENSION Qualifiers: Hypertension type: essential hypertension Qualified Code(s): I10 - Essential (primary) hypertension (4) Hypothyroid Code(s): E03.9 - HYPOTHYROIDISM, UNSPECIFIED Qualifiers: Hypothyroidism type: unspecified Qualified Code(s): E03.9 - Hypothyroidism, unspecified (5) History of stroke Code(s): Z86.73 - PRSNL HX OF TIA (TIA), AND CEREB INFRC W/O RESID DEFICITS (6) Atrial fibrillation Code(s): I48.91 - UNSPECIFIED ATRIAL FIBRILLATION Qualifiers: Atrial fibrillation type: paroxysmal Qualified Code(s): I48.0 - Paroxysmal atrial fibrillation (7) Diastolic CHF, acute on chronic Code(s): I50.33 - ACUTE ON CHRONIC DIASTOLIC (CONGESTIVE) HEART FAILURE (8) Pleural effusion due to CHF (congestive heart failure) Code(s): I50.9 - HEART FAILURE, UNSPECIFIED (9) Pyelonephritis due to Escherichia coli Code(s): N12 - TUBULO-INTERSTITIAL NEPHRITIS, NOT SPCF ACUTE OR CHRONIC B96.20 - UNSP ESCHERICHIA COLI THE CAUSE OF DISEASES CLASSD ELSWHR (10) Leukocytosis Code(s): D72.829 - ELEVATED WHITE BLOOD CELL COUNT, UNSPECIFIED (11) Hydronephrosis Code(s): N13.30 - UNSPECIFIED HYDRONEPHROSIS Qualifiers: Hydronephrosis type: unspecified Qualified Code(s): N13.30 - Unspecified hydronephrosis Assessment/Plan 1. Patella fracture secondary to mechanical fall post ORIF 2. 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 MVP 5. HTN/HCVD 6. Hyperlipidemia 7. Hypothyroidism 8. History of GERD/esophageal spasm 9. Paroxysmal atrial fibrillation in sinus rhythm 10. Acute on CKD 11. Leukocytosis - left pyelonephritis 12. Mild-moderate left hydronephrosis PLAN: 1. Continue Lopressor 50 mg BID, Lisinopril 10 mg QD and Lipitor 10 mg QHS 2. Continue Eliquis 2.5 mg BID 3. Decrease Lasix 40 mg po QD with monitoring renal function and electrolytes, replete K 4. DVT and GI prophylaxis 5. Complete antibiotic course per ID 6. OOB to chair, PT as tolerated
[2016-05-05] MEDS: RANITIDINE HCL 150 MG TABLET (FP) PO SCH (21:22)
[2016-05-05] MEDS: ATORVASTATIN CA 10 MG TABLET (FP) PO SCH (21:23)
[2016-05-06] MEDS: LEVOTHYROXINE NA 100 MCG TABLET (FP) PO SCH (06:07)
[2016-05-06 07:53] LABS: BASOPHIL 0.3 % (0-2.0); EOSINOPHIL 1.1 % (0-4.5); MCH 30.1 pg (25.7-33.7); MCHC 32.4 g/dl (32.0-36.0); MEAN CELL VOLUME 92.9 fl (80-96); MEAN PLT VOLUME 8.1 fl (7.5-11.1); NEUTROPHILS 82.8 % (42.8-82.8); PLATELET COUNT 418 K/MM3 (134-434); RDW 14.8 % (11.6-15.6); WHITE BLOOD COUNT 13.1 K/mm3 (4.0-10.0)
[2016-05-06 08:03] LABS: CREATININE 0.7 mg/dL (0.55-1.02); MAGNESIUM 2.7 mg/dL (1.8-2.4); PHOSPHOROUS 3.3 mg/dL (2.5-4.9)
--- NOTE | 2016-05-06 08:51 | PN ---
Physical Exam: SUBJECTIVE: Patient seen and examined for Dr. Thorpe's service. No complaints, encouraged PO intake. Pt feels tired and weak, "just not hungry", denies nausea , vomiting. OBJECTIVE: Vital Signs Period Temp Pulse Resp BP Sys/Smith Pulse Ox Last 24 Hr 97.1 F-97.8 F 61-73 18-20 118-135/57-76 97-99 Gen: thin, elderly female, non-toxic appearing, on 2L NC CV: regular Pulm: poor inspiratory effort, no wheeze, decreased BS Abd: soft, NT, NT Ext: 1+ edema, R knee in immobilizer Laboratory Results - last 24 hr 05/06/16 05/06/16 06:45 06:45 WBC 13.1 H RBC 3.40 L Hgb 10.3 L Hct 31.6 L MCV 92.9 MCHC 32.4 RDW 14.8 Plt Count 418 MPV 8.1 Neutrophils % 82.8 Lymphocytes % 8.3 Monocytes % 7.5 Eosinophils % 1.1 Basophils % 0.3 Sodium 149 H Potassium 3.3 L Chloride 106 Carbon Dioxide 38 H Anion Gap 5 L BUN 24 H Creatinine 0.7 Random Glucose 90 Calcium 8.0 L Phosphorus 3.3 Magnesium 2.7 H Active Medications Generic Name Dose Route Start Last Admin Trade Name Freq PRN Reason Stop Dose Admin Acetaminophen 650 mg 04/19/16 10:58 05/05/16 04:04 Tylenol - PO 650 mg Q6H PRN Administration PAIN SCALE 6-10 Al Hydroxide/Mg Hydroxide 30 ml 04/19/16 10:58 Mylanta Oral Suspension - PO Q6H PRN DYSPEPSIA Albuterol/Ipratropium 1 amp 04/24/16 15:59 05/02/16 11:13 Duoneb - NEB 1 amp Q6H PRN Administration SHORTNESS OF BREATH Apixaban 2.5 mg 05/01/16 12:30 05/05/16 21:22 Eliquis - PO 2.5 mg BID [facility] Administration Atorvastatin Calcium 10 mg 04/19/16 22:00 05/05/16 21:23 Lipitor - PO 10 mg HS [facility] Administration Bacitracin 1 applic 04/19/16 22:00 05/05/16 21:22 Bacitracin - TP Not Given BID [facility] Cholecalciferol 400 unit 04/20/16 10:00 05/05/16 09:41 Vitamin D3 - PO 400 unit DAILY [facility] Administration Diltiazem HCl 10 mg 04/27/16 11:31 04/28/16 13:05 Cardizem Injection - IVPUSH 10 mg Q6H PRN Administration Docusate Sodium 100 mg 04/21/16 13:00 05/05/16 21:22 Colace - PO 100 mg BID [facility] Administration Ertapenem 1 gm/ Sodium 50 mls @ 50 mls/hr 04/29/16 13:00 05/05/16 09:39 Chloride IVPB 50 mls/hr DAILY [facility] Administration Levothyroxine Sodium 100 mcg 04/20/16 07:00 05/06/16 06:07 Synthroid - PO 100 mcg DAILY@0700 [facility] Administration Lisinopril 10 mg 04/20/16 10:00 05/05/16 09:40 Prinivil PO 10 mg DAILY [facility] Administration Metoprolol Tartrate 50 mg 04/30/16 22:00 05/05/16 21:22 Lopressor - PO 50 mg BID [facility] Administration Morphine Sulfate 2 mg 05/02/16 19:21 05/03/16 08:34 Morphine Injection - IVPUSH 2 mg Q3H PRN Administration PAIN Nitroglycerin 0.4 mg 04/19/16 10:58 Nitrostat - SL PRN PRN Ondansetron HCl 4 mg 04/22/16 10:45 04/25/16 09:44 Zofran Odt - SL 4 mg Q8H PRN Administration NAUSEA Oxycodone HCl 5 mg 04/24/16 13:02 05/05/16 21:23 Roxicodone - PO 5 mg Q4H PRN Administration PAIN Pantoprazole Sodium 40 mg 04/20/16 10:00 05/05/16 09:40 Protonix - PO 40 mg DAILY [facility] Administration Polyethylene Glycol 17 gm 04/21/16 13:00 05/05/16 21:23 Miralax (For Daily Use) - PO Not Given BID [facility] Potassium Chloride 40 meq 05/01/16 10:00 05/05/16 09:40 K-Dur - PO 40 meq DAILY [facility] Administration Ranitidine HCl 150 mg 04/19/16 22:00 05/05/16 21:22 Zantac - PO 150 mg HS [facility] Administration ASSESSMENT/PLAN: #UTI, ESBL -continue ertapenem, ID following -Day 8 of 10 -WBC stable, still mildly elevated. Afebrile s/p R knee fracture, in immobilizer -Ortho following, WBAT -cont oxycodone prn, bowel regimen -needs continued PT eval, plans for [place] when stable for discharge Hypernatremia -Na 149 due to poor oral intake -due to need for lasix would hold off from giving additional fluids. For now have discontinued lasix and will monitor/encourage PO intake Hypokalemia -like due to lasix/poor PO intake -on daily repletion and can continue for now. Would discontinue if becomes hyperkalemic as lasix now on hold Afib on eliquis -stable HTN -continue lisinopril, metoprolol ?resolving acute hypoxia, pleural effusions -on 2L NC, would titrate off if possible -incentive spirometer -ambulate with PT Hypothyroidism DISPO: pending improvement of Na and discontinuation of IV antibiotics Visit type - Emergency Visit Emergency Visit: Yes ED Registration Date: 04/15/16 Care time: The patient presented to the Emergency Department on the above date and was hospitalized for further evaluation of their emergent condition. - New Patient This patient is new to me today: No - Critical Care Critical Care patient: No
[2016-05-06] MEDS ORDERED: FUROSEMIDE 40 MG TABLET (FP) PO SCH (10:00)
[2016-05-06] MEDS: POLYETHYLENE GLYCOL 3350 119 GM BTL PO SCH ×2 (10:16→21:59)
[2016-05-06] MEDS ORDERED: PT OWN MED DRAWER 7, Y5N ONE ×2 (10:18→21:04)
[2016-05-06] MEDS: DOCUSATE SODIUM 100 MG CAPSULE (FP) PO SCH ×2 (10:21→21:59)
[2016-05-06] MEDS: POTASSIUM CHLORIDE TABS 20 MEQ TABLET.ER (FP) PO SCH (10:21)
[2016-05-06] MEDS: PANTOPRAZOLE 40 MG TABLET (FP) PO SCH (10:21)
[2016-05-06] MEDS: LISINOPRIL 10 MG TABLET (FP) PO SCH (10:21)
[2016-05-06] MEDS: METOPROLOL TARTRATE 50 MG TABLET (FP) PO SCH ×2 (10:21→21:59)
[2016-05-06] MEDS: CHOLECALCIFEROL (VITAMIN D3) 400 UNIT TABLET (FP) PO SCH (10:22)
[2016-05-06] MEDS: APIXABAN 2.5 MG TABLET PO SCH ×2 (10:22→21:59)
[2016-05-06] MEDS: oxyCODONE HCL 5 MG TABLET PO PRN ×2 (12:07→22:00)
[2016-05-06] MEDS: BACITRACIN 30 GM TUBE TOPICAL OINTMENT TP SCH ×2 (12:09→21:51)
[2016-05-06] MEDS: ERTAPENEM SODIUM 1 GM in SODIUM CHLORIDE 50 ML IVPB SCH (12:09)
[2016-05-06] MEDS: morphine CARPU-JECT 2 MG/1 ML DISP.SYRIN IVPUSH PRN (13:58)
--- NOTE | 2016-05-06 16:14 | PN ---
Progress Note, Physician Chief Complaint: Events noted Feels better Denies chest pain or SOB History of Present Illness: Patient was seen and examined this am. Awake and alert. Chart was reviewed Denied chest pain. Denies shortness of breath Complains of knee pain - Current Medication List Current Medications: Active Medications Acetaminophen (Tylenol -) 650 mg PO Q6H PRN PRN Reason: PAIN SCALE 6-10 Last Admin: 05/05/16 04:04 Dose: 650 mg Al Hydroxide/Mg Hydroxide (Mylanta Oral Suspension -) 30 ml PO Q6H PRN PRN Reason: DYSPEPSIA Albuterol/Ipratropium (Duoneb -) 1 amp NEB Q6H PRN PRN Reason: SHORTNESS OF BREATH Last Admin: 05/02/16 11:13 Dose: 1 amp Apixaban (Eliquis -) 2.5 mg PO BID [facility] Last Admin: 05/06/16 10:22 Dose: 2.5 mg Atorvastatin Calcium (Lipitor -) 10 mg PO HS [facility] Last Admin: 05/05/16 21:23 Dose: 10 mg Bacitracin (Bacitracin -) 1 applic TP BID [facility] Last Admin: 05/06/16 12:09 Dose: Not Given Cholecalciferol (Vitamin D3 -) 400 unit PO DAILY [facility] Last Admin: 05/06/16 10:22 Dose: 400 unit Diltiazem HCl (Cardizem Injection -) 10 mg IVPUSH Q6H PRN Last Admin: 04/28/16 13:05 Dose: 10 mg Docusate Sodium (Colace -) 100 mg PO BID [facility] Last Admin: 05/06/16 10:21 Dose: 100 mg Ertapenem 1 gm/ Sodium (Chloride) 50 mls @ 50 mls/hr IVPB DAILY [facility] Last Admin: 05/06/16 12:09 Dose: 50 mls/hr Levothyroxine Sodium (Synthroid -) 100 mcg PO DAILY@0700 [facility] Last Admin: 05/06/16 06:07 Dose: 100 mcg Lisinopril (Prinivil) 10 mg PO DAILY [facility] Last Admin: 05/06/16 10:21 Dose: 10 mg Metoprolol Tartrate (Lopressor -) 50 mg PO BID [facility] Last Admin: 05/06/16 10:21 Dose: 50 mg Morphine Sulfate (Morphine Injection -) 2 mg IVPUSH Q3H PRN PRN Reason: PAIN Last Admin: 05/06/16 13:58 Dose: 2 mg Nitroglycerin (Nitrostat -) 0.4 mg SL PRN PRN Ondansetron HCl (Zofran Odt -) 4 mg SL Q8H PRN PRN Reason: NAUSEA Last Admin: 04/25/16 09:44 Dose: 4 mg Oxycodone HCl (Roxicodone -) 5 mg PO Q4H PRN PRN Reason: PAIN Last Admin: 05/06/16 12:07 Dose: 5 mg Pantoprazole Sodium (Protonix -) 40 mg PO DAILY [facility] Last Admin: 05/06/16 10:21 Dose: 40 mg Polyethylene Glycol (Miralax (For Daily Use) -) 17 gm PO BID [facility] Last Admin: 05/06/16 10:16 Dose: Not Given Potassium Chloride (K-Dur -) 40 meq PO DAILY [facility] Last Admin: 05/06/16 10:21 Dose: 40 meq Ranitidine HCl (Zantac -) 150 mg PO HS [facility] Last Admin: 05/05/16 21:22 Dose: 150 mg - Objective Vital Signs: Vital Signs Temperature 97.4 F L 05/06/16 14:32 Pulse Rate 60 05/06/16 14:32 Respiratory Rate 20 05/06/16 14:32 Blood Pressure 132/72 05/06/16 14:32 O2 Sat by Pulse Oximetry (%) 99 05/06/16 11:10 Neck: Yes: Supple Cardiovascular: Yes: Regular Rate and Rhythm, S1, S2 Respiratory: Yes: Diminished Gastrointestinal: Yes: Normal Bowel Sounds, Soft. No: Tenderness Edema: No Labs: CBC, BMP 05/06/16 06:45 05/06/16 06:45 Problem List - Problems (1) Nasal bone fracture Code(s): S02.2XXA - FRACTURE OF NASAL BONES, INIT ENCNTR FOR CLOSED FRACTURE (2) Right patella fracture Code(s): S82.001A - UNSP FRACTURE OF RIGHT PATELLA, INIT FOR CLOS FX Qualifiers: Encounter type: initial encounter Fracture type: closed Fracture morphology: unspecified fracture morphology Fracture alignment: displaced Qualified Code(s): S82.001A - Unspecified fracture of right patella, initial encounter for closed fracture (3) GERD (gastroesophageal reflux disease) Code(s): K21.9 - GASTRO-ESOPHAGEAL REFLUX DISEASE WITHOUT ESOPHAGITIS Qualifiers: Esophagitis presence: without esophagitis Qualified Code(s): K21.9 - Gastro-esophageal reflux disease without esophagitis (4) Hypercholesteremia Code(s): E78.0 - PURE HYPERCHOLESTEROLEMIA * DO NOT USE * (5) Hypertension Code(s): I10 - ESSENTIAL (PRIMARY) HYPERTENSION Qualifiers: Hypertension type: essential hypertension Qualified Code(s): I10 - Essential (primary) hypertension (6) Hypothyroid Code(s): E03.9 - HYPOTHYROIDISM, UNSPECIFIED Qualifiers: Hypothyroidism type: unspecified Qualified Code(s): E03.9 - Hypothyroidism, unspecified (7) Atrial fibrillation Code(s): I48.91 - UNSPECIFIED ATRIAL FIBRILLATION Qualifiers: Atrial fibrillation type: paroxysmal Qualified Code(s): I48.0 - Paroxysmal atrial fibrillation Assessment/Plan 1. Patella fracture secondary to mechanical fall post ORIF 2. 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 MVP 5. HTN/HCVD 6. Hyperlipidemia 7. Hypothyroidism 8. History of GERD/esophageal spasm 9. Paroxysmal atrial fibrillation in sinus rhythm 10. Acute on CKD 11. Leukocytosis - left pyelonephritis 12. Mild-moderate left hydronephrosis PLAN: 1. Continue Lopressor 50 mg BID, Lisinopril 10 mg QD and Lipitor 10 mg QHS 2. Continue Eliquis 2.5 mg BID 3. DVT and GI prophylaxis 4. Complete antibiotic course 5. PT and eventually rehab Further plans are to follow Shakir Cheney MD
[2016-05-06] MEDS: ATORVASTATIN CA 10 MG TABLET (FP) PO SCH (21:59)
[2016-05-06] MEDS: RANITIDINE HCL 150 MG TABLET (FP) PO SCH (21:59)
[2016-05-07] MEDS: LEVOTHYROXINE NA 100 MCG TABLET (FP) PO SCH (06:34)
[2016-05-07 06:38] LABS: MCH 30.3 pg (25.7-33.7); MCHC 32.5 g/dl (32.0-36.0); MEAN CELL VOLUME 93.3 fl (80-96); MEAN PLT VOLUME 8.1 fl (7.5-11.1); PLATELET COUNT 428 K/MM3 (134-434); WHITE BLOOD COUNT 13.3 K/mm3 (4.0-10.0)
[2016-05-07 07:44] LABS: CALCIUM 8.4 mg/dL (8.5-10.1); MAGNESIUM 2.9 mg/dL (1.8-2.4)
[2016-05-07 07:47] LABS: CREATININE 0.8 mg/dL (0.55-1.02)
--- NOTE | 2016-05-07 09:53 | PN ---
Physical Exam: SUBJECTIVE: Patient seen and examined Patient is c/o having right knee pain OBJECTIVE: Vital Signs Temperature 98.1 F 05/07/16 06:19 Pulse Rate 64 05/07/16 06:19 Respiratory Rate 18 05/07/16 06:19 Blood Pressure 139/75 05/07/16 06:19 O2 Sat by Pulse Oximetry (%) 99 05/06/16 11:10 GENERAL: The patient is awake, alert, and fully oriented, in no acute distress. HEAD: Normal with no signs of trauma. EYES: PERRL, extraocular movements intact, sclera anicteric, conjunctiva clear. No ptosis. ENT: Ears normal, nares patent, oropharynx clear without exudates, moist mucous membranes. NECK: Trachea midline, full range of motion, supple. LUNGS: Breath sounds equal, clear to auscultation bilaterally, no wheezes, no crackles, no accessory muscle use. HEART: Regular rate and rhythm, S1, S2 positive, MEGAN 2/6 ABDOMEN: Soft, nontender, nondistended, normoactive bowel sounds, no guarding, no rebound, no hepatosplenomegaly, no masses. EXTREMITIES: 2+ pulses, warm, well-perfused, no edema. NEUROLOGICAL: Cranial nerves II through XII grossly intact. Normal speech, gait not observed. PSYCH: Normal mood, normal affect. SKIN: Warm, dry, normal turgor, no rashes or lesions noted CBCD WBC 13.3 K/mm3 (4.0-10.0) H 05/07/16 05:35 RBC 3.51 M/mm3 (3.60-5.2) L 05/07/16 05:35 Hgb 10.6 GM/dL (10.7-15.3) L 05/07/16 05:35 Hct 32.7 % (32.4-45.2) 05/07/16 05:35 MCV 93.3 fl (80-96) 05/07/16 05:35 MCHC 32.5 g/dl (32.0-36.0) 05/07/16 05:35 RDW 15.0 % (11.6-15.6) 05/07/16 05:35 Plt Count 428 K/MM3 (134-434) 05/07/16 05:35 MPV 8.1 fl (7.5-11.1) 05/07/16 05:35 CMP Sodium 150 mmol/L (136-145) H 05/07/16 05:35 Potassium 3.4 mmol/L (3.5-5.1) L 05/07/16 05:35 Chloride 106 mmol/L (98-107) 05/07/16 05:35 Carbon Dioxide 38 mmol/L (21-32) H 05/07/16 05:35 Anion Gap 6 (8-16) L 05/07/16 05:35 BUN 24 mg/dL (7-18) H 05/07/16 05:35 Creatinine 0.8 mg/dL (0.55-1.02) 05/07/16 05:35 Creat Clearance w eGFR 59.09 (>60) 05/02/16 05:35 Random Glucose 72 mg/dL (74-106) L 05/07/16 05:35 Calcium 8.4 mg/dL (8.5-10.1) L 05/07/16 05:35 Total Bilirubin 0.5 mg/dL (0.2-1.0) 05/02/16 05:35 AST 14 U/L (15-37) L 05/02/16 05:35 ALT 8 U/L (12-78) L 05/02/16 05:35 Alkaline Phosphatase 56 U/L (45-117) 05/02/16 05:35 Total Protein 5.2 g/dl (6.4-8.2) L 05/02/16 05:35 Albumin 1.5 g/dl (3.4-5.0) L 05/02/16 05:35 CARDIAC ENZYMES Creatine Kinase 15 IU/L (26-192) L 05/03/16 15:30 Troponin I < 0.02 ng/ml (0.00-0.05) 05/03/16 15:30 meds: Generic Name Dose Route Start Last Admin Trade Name Freq PRN Reason Stop Dose Admin Acetaminophen 650 mg 04/19/16 10:58 05/05/16 04:04 Tylenol - PO 650 mg Q6H PRN Administration PAIN SCALE 6-10 Al Hydroxide/Mg Hydroxide 30 ml 04/19/16 10:58 Mylanta Oral Suspension - PO Q6H PRN DYSPEPSIA Albuterol/Ipratropium 1 amp 04/24/16 15:59 05/02/16 11:13 Duoneb - NEB 1 amp Q6H PRN Administration SHORTNESS OF BREATH Apixaban 2.5 mg 05/01/16 12:30 05/06/16 21:59 Eliquis - PO 2.5 mg BID [facility] Administration Atorvastatin Calcium 10 mg 04/19/16 22:00 05/06/16 21:59 Lipitor - PO 10 mg HS [facility] Administration Bacitracin 1 applic 04/19/16 22:00 05/06/16 21:51 Bacitracin - TP Not Given BID [facility] Cholecalciferol 400 unit 04/20/16 10:00 05/06/16 10:22 Vitamin D3 - PO 400 unit DAILY [facility] Administration Diltiazem HCl 10 mg 04/27/16 11:31 04/28/16 13:05 Cardizem Injection - IVPUSH 10 mg Q6H PRN Administration Docusate Sodium 100 mg 04/21/16 13:00 05/06/16 21:59 Colace - PO 100 mg BID [facility] Administration Ertapenem 1 gm/ Sodium 50 mls @ 50 mls/hr 04/29/16 13:00 05/06/16 12:09 Chloride IVPB 50 mls/hr DAILY [facility] Administration Levothyroxine Sodium 100 mcg 04/20/16 07:00 05/07/16 06:34 Synthroid - PO 100 mcg DAILY@0700 [facility] Administration Lisinopril 10 mg 04/20/16 10:00 05/06/16 10:21 Prinivil PO 10 mg DAILY [facility] Administration Metoprolol Tartrate 50 mg 04/30/16 22:00 05/06/16 21:59 Lopressor - PO 50 mg BID [facility] Administration Morphine Sulfate 2 mg 05/02/16 19:21 05/06/16 13:58 Morphine Injection - IVPUSH 2 mg Q3H PRN Administration PAIN Nitroglycerin 0.4 mg 04/19/16 10:58 Nitrostat - SL PRN PRN Ondansetron HCl 4 mg 04/22/16 10:45 04/25/16 09:44 Zofran Odt - SL 4 mg Q8H PRN Administration NAUSEA Oxycodone HCl 5 mg 04/24/16 13:02 05/06/16 22:00 Roxicodone - PO 5 mg Q4H PRN Administration PAIN Pantoprazole Sodium 40 mg 12/15/16 10:00 05/06/16 10:21 Protonix - PO 40 mg DAILY [facility] Administration Polyethylene Glycol 17 gm 04/21/16 13:00 05/06/16 21:59 Miralax (For Daily Use) - PO Not Given BID [facility] Potassium Chloride 40 meq 05/01/16 10:00 05/06/16 10:21 K-Dur - PO 40 meq DAILY [facility] Administration Ranitidine HCl 150 mg 04/19/16 22:00 05/06/16 21:59 Zantac - PO 150 mg HS [facility] Administration Medication Instructions Recorded Levothyroxine [Synthroid -] 0.1 mg PO DAILY 02/17/13 Lisinopril [Prinivil] 10 mg PO DAILY 02/17/13 Aspirin/Dipyridamole [Aggrenox -] 1 combo PO BID 10/27/13 Metoprolol Tartrate [Lopressor -] 25 mg PO DAILY 10/27/13 Simvastatin [Zocor -] 20 mg PO HS 10/27/13 Nitroglycerin Sublingual 0.4 mg SL PRN 09/16/14 [Nitrostat -] Ranitidine [Zantac -] 150 mg PO HS #0 tablet 09/17/14 Aspirin/Dipyridamole [Aggrenox -] 1 combo PO BID 04/15/16 Cholecalciferol (Vitamin D3) 400 unit PO DAILY 04/15/16 [Vitamin D3 -] Famotidine/Ca Carb/Mag Hydrox 1 each PO DAILY 04/15/16 [Pepcid Complete Tablet Chew] Pantoprazole Sodium 40 mg PO DAILY 04/15/16 Chest CTA negative for PE, significant bilateral pleural effusions, bilateral moderate hydronephrosis with perinephric stranding L>R Echo showed mild cLVH, normal LV fxn, mild decreased RV fxn, mild MR, TR, mild- mod AR, small pericardial effusion Renal u/s showed mild-mod left hydro without stones ASSESSMENT/PLAN: This is an 89-year-old woman with a history of HTN, hyperlipidemia, CVA, hypothyroidism, GERD who came to the ER with a right patellar fracture after a fall. # Acute UTI; ESBL continue ertapenem, ID , Day 910 of IV antibiotic -WBC stable, still mildly elevated. Afebrile though, # Acute R knee fracture, in immobilizer ;Ortho on the case, WBAT, continues to have pain , morphine reduced to 1mg every 2 hrs and continue oxycodone prn, bowel regimen, needs continued PT eval, plans for [facility] when stable for discharge # Acute Hypernatremia; Na 149 due to poor oral intake -due to need for lasix would hold off from giving additional fluids. For now have discontinued lasix and will monitor/encourage PO intake # Hypokalemia -like due to lasix/poor PO intake -on daily repletion and can continue for now. Would discontinue if becomes hyperkalemic as lasix now on hold # Afib on eliquis # HTN continue lisinopril, metoprolol # resolving acute hypoxia, pleural effusions on 2L NC, # Hypothyroidism continue meds. DVT Px": Eliquis Visit type - Emergency Visit Emergency Visit: Yes ED Registration Date: 04/15/16 Care time: The patient presented to the Emergency Department on the above date and was hospitalized for further evaluation of their emergent condition. - New Patient This patient is new to me today: Yes Date on this admission: 05/07/16 - Critical Care Critical Care patient: No
[2016-05-07] MEDS ORDERED: PT OWN MED DRAWER 7, Y5N ONE (10:02)
[2016-05-07] MEDS: APIXABAN 2.5 MG TABLET PO SCH ×2 (10:09→21:02)
[2016-05-07] MEDS: DOCUSATE SODIUM 100 MG CAPSULE (FP) PO SCH ×2 (10:09→21:02)
[2016-05-07] MEDS: METOPROLOL TARTRATE 50 MG TABLET (FP) PO SCH ×2 (10:09→21:02)
[2016-05-07] MEDS: PANTOPRAZOLE 40 MG TABLET (FP) PO SCH (10:09)
[2016-05-07] MEDS: BACITRACIN 30 GM TUBE TOPICAL OINTMENT TP SCH ×2 (10:09→21:02)
[2016-05-07] MEDS: LISINOPRIL 10 MG TABLET (FP) PO SCH (10:09)
[2016-05-07] MEDS: POTASSIUM CHLORIDE TABS 20 MEQ TABLET.ER (FP) PO SCH (10:09)
[2016-05-07] MEDS: CHOLECALCIFEROL (VITAMIN D3) 400 UNIT TABLET (FP) PO SCH (10:09)
[2016-05-07] MEDS: morphine CARPU-JECT 2 MG/1 ML DISP.SYRIN IVPUSH PRN (10:10)
[2016-05-07] MEDS: POLYETHYLENE GLYCOL 3350 119 GM BTL PO SCH ×2 (10:10→21:02)
[2016-05-07] MEDS: ERTAPENEM SODIUM 1 GM in SODIUM CHLORIDE 50 ML IVPB SCH (10:10)
--- NOTE | 2016-05-07 17:32 | PN ---
Progress Note, Physician Chief Complaint: Events noted Not in distress History of Present Illness: Patient was seen and examined. Awake and alert. Chart was reviewed Denied chest pain. Denies shortness of breath Complains of knee pain - Current Medication List Current Medications: Active Medications Acetaminophen (Tylenol -) 650 mg PO Q6H PRN PRN Reason: PAIN SCALE 6-10 Last Admin: 05/05/16 04:04 Dose: 650 mg Al Hydroxide/Mg Hydroxide (Mylanta Oral Suspension -) 30 ml PO Q6H PRN PRN Reason: DYSPEPSIA Albuterol/Ipratropium (Duoneb -) 1 amp NEB Q6H PRN PRN Reason: SHORTNESS OF BREATH Last Admin: 05/02/16 11:13 Dose: 1 amp Apixaban (Eliquis -) 2.5 mg PO BID [facility] Last Admin: 05/07/16 10:09 Dose: 2.5 mg Atorvastatin Calcium (Lipitor -) 10 mg PO HS [facility] Last Admin: 05/06/16 21:59 Dose: 10 mg Bacitracin (Bacitracin -) 1 applic TP BID [facility] Last Admin: 05/07/16 10:09 Dose: Not Given Cholecalciferol (Vitamin D3 -) 400 unit PO DAILY [facility] Last Admin: 05/07/16 10:09 Dose: 400 unit Diltiazem HCl (Cardizem Injection -) 10 mg IVPUSH Q6H PRN Last Admin: 04/28/16 13:05 Dose: 10 mg Docusate Sodium (Colace -) 100 mg PO BID [facility] Last Admin: 05/07/16 10:09 Dose: 100 mg Ertapenem 1 gm/ Sodium (Chloride) 50 mls @ 50 mls/hr IVPB DAILY [facility] Last Admin: 05/07/16 10:10 Dose: 50 mls/hr Levothyroxine Sodium (Synthroid -) 100 mcg PO DAILY@0700 [facility] Last Admin: 05/07/16 06:34 Dose: 100 mcg Lisinopril (Prinivil) 10 mg PO DAILY [facility] Last Admin: 05/07/16 10:09 Dose: 10 mg Metoprolol Tartrate (Lopressor -) 50 mg PO BID [facility] Last Admin: 05/07/16 10:09 Dose: 50 mg Morphine Sulfate (Morphine Injection -) 2 mg IVPUSH Q3H PRN PRN Reason: PAIN Last Admin: 05/07/16 10:10 Dose: 2 mg Nitroglycerin (Nitrostat -) 0.4 mg SL PRN PRN Ondansetron HCl (Zofran Odt -) 4 mg SL Q8H PRN PRN Reason: NAUSEA Last Admin: 04/25/16 09:44 Dose: 4 mg Oxycodone HCl (Roxicodone -) 5 mg PO Q4H PRN PRN Reason: PAIN Last Admin: 05/06/16 22:00 Dose: 5 mg Pantoprazole Sodium (Protonix -) 40 mg PO DAILY [facility] Last Admin: 05/07/16 10:09 Dose: 40 mg Polyethylene Glycol (Miralax (For Daily Use) -) 17 gm PO BID [facility] Last Admin: 05/07/16 10:10 Dose: Not Given Potassium Chloride (K-Dur -) 40 meq PO DAILY [facility] Last Admin: 05/07/16 10:09 Dose: 40 meq Ranitidine HCl (Zantac -) 150 mg PO HS [facility] Last Admin: 05/06/16 21:59 Dose: 150 mg - Objective Vital Signs: Vital Signs Temperature 97.7 F 05/07/16 13:11 Pulse Rate 56 L 05/07/16 13:11 Respiratory Rate 20 05/07/16 13:11 Blood Pressure 136/59 05/07/16 13:11 O2 Sat by Pulse Oximetry (%) 97 05/07/16 09:00 Neck: Yes: Supple Cardiovascular: Yes: Regular Rate and Rhythm, S1, S2 Respiratory: Yes: Diminished Gastrointestinal: Yes: Normal Bowel Sounds, Soft. No: Tenderness Edema: No Labs: CBC, BMP 05/07/16 05:35 05/07/16 05:35 Problem List - Problems (1) Nasal bone fracture Code(s): S02.2XXA - FRACTURE OF NASAL BONES, INIT ENCNTR FOR CLOSED FRACTURE (2) Right patella fracture Code(s): S82.001A - UNSP FRACTURE OF RIGHT PATELLA, INIT FOR CLOS FX Qualifiers: Encounter type: initial encounter Fracture type: closed Fracture morphology: unspecified fracture morphology Fracture alignment: displaced Qualified Code(s): S82.001A - Unspecified fracture of right patella, initial encounter for closed fracture (3) GERD (gastroesophageal reflux disease) Code(s): K21.9 - GASTRO-ESOPHAGEAL REFLUX DISEASE WITHOUT ESOPHAGITIS Qualifiers: Esophagitis presence: without esophagitis Qualified Code(s): K21.9 - Gastro-esophageal reflux disease without esophagitis (4) Hypercholesteremia Code(s): E78.0 - PURE HYPERCHOLESTEROLEMIA * DO NOT USE * (5) Hypertension Code(s): I10 - ESSENTIAL (PRIMARY) HYPERTENSION Qualifiers: Hypertension type: essential hypertension Qualified Code(s): I10 - Essential (primary) hypertension (6) Hypothyroid Code(s): E03.9 - HYPOTHYROIDISM, UNSPECIFIED Qualifiers: Hypothyroidism type: unspecified Qualified Code(s): E03.9 - Hypothyroidism, unspecified (7) Atrial fibrillation Code(s): I48.91 - UNSPECIFIED ATRIAL FIBRILLATION Qualifiers: Atrial fibrillation type: paroxysmal Qualified Code(s): I48.0 - Paroxysmal atrial fibrillation Assessment/Plan 1. Patella fracture secondary to mechanical fall post ORIF 2. 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 MVP 5. HTN/HCVD 6. Hyperlipidemia 7. Hypothyroidism 8. History of GERD/esophageal spasm 9. Paroxysmal atrial fibrillation in sinus rhythm 10. Acute on CKD 11. Leukocytosis - left pyelonephritis 12. Mild-moderate left hydronephrosis PLAN: 1. Continue Lopressor 50 mg BID, Lisinopril 10 mg QD and Lipitor 10 mg QHS 2. Continue Eliquis 2.5 mg BID 3. DVT and GI prophylaxis 4. Complete antibiotic course 5. PT and eventually rehab Further plans are to follow Shakir Cheney MD
[2016-05-07] MEDS ORDERED: morphine CARPU-JECT 2 MG/1 ML DISP.SYRIN IVPUSH PRN ×2 (19:41→19:44)
[2016-05-07] MEDS ORDERED: DEXTROSE 5%-0.45% SALINE 1,000 ML with POTASSIUM CHLORIDE 20 MEQ IVPB SCH (20:00)
[2016-05-07] MEDS: oxyCODONE HCL 5 MG TABLET PO PRN (20:35)
[2016-05-07] MEDS: RANITIDINE HCL 150 MG TABLET (FP) PO SCH (21:02)
[2016-05-07] MEDS: ATORVASTATIN CA 10 MG TABLET (FP) PO SCH (21:02)
[2016-05-08] MEDS: LEVOTHYROXINE NA 100 MCG TABLET (FP) PO SCH (06:45)
[2016-05-08 07:36] LABS: BASOPHIL 0.6 % (0-2.0); EOSINOPHIL 1.6 % (0-4.5); MCH 29.9 pg (25.7-33.7); MCHC 31.9 g/dl (32.0-36.0); MEAN PLT VOLUME 8.3 fl (7.5-11.1); NEUTROPHILS 82.7 % (42.8-82.8); PLATELET COUNT 412 K/MM3 (134-434); WHITE BLOOD COUNT 12.4 K/mm3 (4.0-10.0)
[2016-05-08 08:09] LABS: ALBUMIN 1.9 g/dl (3.4-5.0); ANION GAP 6 (8-16); CO2 38 mmol/L (21-32); GLUCOSE,RANDOM 110 mg/dL (74-106); MAGNESIUM 2.9 mg/dL (1.8-2.4)
[2016-05-08 08:12] LABS: ALK PHOS 44 U/L (45-117); BILIRUBIN,TOTAL 0.5 mg/dL (0.2-1.0); CREATININE 0.7 mg/dL (0.55-1.02); SGOT/AST 16 U/L (15-37); SGPT/ALT 10 U/L (12-78); TOT PROT 5.4 g/dl (6.4-8.2)
[2016-05-08] MEDS ORDERED: PT OWN MED DRAWER 7, Y5N ONE ×3 (08:47→21:28)
[2016-05-08] MEDS: ERTAPENEM SODIUM 1 GM in SODIUM CHLORIDE 50 ML IVPB SCH (09:14)
[2016-05-08] MEDS: LISINOPRIL 10 MG TABLET (FP) PO SCH (09:18)
[2016-05-08] MEDS: METOPROLOL TARTRATE 50 MG TABLET (FP) PO SCH ×2 (09:18→21:57)
[2016-05-08] MEDS: DOCUSATE SODIUM 100 MG CAPSULE (FP) PO SCH ×2 (09:18→21:51)
[2016-05-08] MEDS: BACITRACIN 30 GM TUBE TOPICAL OINTMENT TP SCH ×2 (09:18→21:47)
[2016-05-08] MEDS: PANTOPRAZOLE 40 MG TABLET (FP) PO SCH (09:18)
[2016-05-08] MEDS: POTASSIUM CHLORIDE TABS 20 MEQ TABLET.ER (FP) PO SCH (09:18)
[2016-05-08] MEDS: APIXABAN 2.5 MG TABLET PO SCH ×2 (09:23→21:52)
[2016-05-08] MEDS: POLYETHYLENE GLYCOL 3350 119 GM BTL PO SCH ×2 (09:23→21:57)
[2016-05-08] MEDS: CHOLECALCIFEROL (VITAMIN D3) 400 UNIT TABLET (FP) PO SCH (09:37)
--- NOTE | 2016-05-08 09:41 | PN ---
Progress Note (short form) - Note Progress Note: Subjective: denies any SOB or chest pain , no fever or chills, had BM yesterday , denies diarrhea . no events per RN Objective: Vital Signs: Last Vital Signs Temp Pulse Resp BP Pulse Ox 98.2 F 63 18 139/72 97 05/08/16 05:52 05/08/16 05:52 05/08/16 05:52 05/08/16 05:52 05/07/16 09:00 Physical Exam: NAD. awake , oriented to self, year , and place , tearful CV: RRR, no MRG Lungs : decreased breath sounds at bases Abd : soft, NT, ND , NL BS Ext :trace R knee and leg edema , with surgical dressing on knee. DP 2+ ., nl sensation of foot Labs: Laboratory Results - last 24 hr 05/08/16 05/08/16 06:20 06:20 WBC 12.4 H RBC 3.48 L Hgb 10.4 L Hct 32.7 MCV 94.0 MCHC 31.9 L RDW 15.0 Plt Count 412 MPV 8.3 Neutrophils % 82.7 Lymphocytes % 8.4 Monocytes % 6.7 Eosinophils % 1.6 Basophils % 0.6 Sodium 149 H Potassium 3.7 Chloride 105 Carbon Dioxide 38 H Anion Gap 6 L BUN 21 H Creatinine 0.7 Creat Clearance w eGFR > 60 Random Glucose 110 H D Calcium 8.0 L Magnesium 2.9 H Total Bilirubin 0.5 AST 16 ALT 10 L D Alkaline Phosphatase 44 L D Total Protein 5.4 L Albumin 1.9 L D Assessment/Plan: This is an 89-year-old woman with a history of HTN, hyperlipidemia, CVA, hypothyroidism, GERD who came to the ER with a right patellar fracture after a fall. 1- ESBL UTI : today day 10 of Abx , leukocytosis improved , no fever . will dc ertapenem monitor off abx 2- R patellar fx : WBAT cont po pain meds PT 3- dehydration : due to poor oral intake . hypernatremia slightly improved off lasix - encourage po hydration - cont to hold lasix - will try to avoid IV hydration 4- hypokalemia : NL on daily Kcl. monitor 5- A fib : cont eliquis and BB 6- Acute D and S CHF: echo reviewed, LVH and mildly reduced EF. IV lasix on hold now . no signs of fluid overload now cont to monitor 7- DVT px on eliquis HLOC Visit type - Emergency Visit Emergency Visit: Yes ED Registration Date: 04/15/16 Care time: The patient presented to the Emergency Department on the above date and was hospitalized for further evaluation of their emergent condition. - New Patient This patient is new to me today: Yes Date on this admission: 05/08/16 - Critical Care Critical Care patient: No
--- NOTE | 2016-05-08 10:43 | PN ---
Progress Note, Physician History of Present Illness: Complains of R knee pain No c/o dysuria No c/o diarrhea Afebrile WBC mildly elevated - Current Medication List Current Medications: Active Medications Acetaminophen (Tylenol -) 650 mg PO Q6H PRN PRN Reason: PAIN SCALE 6-10 Last Admin: 05/05/16 04:04 Dose: 650 mg Al Hydroxide/Mg Hydroxide (Mylanta Oral Suspension -) 30 ml PO Q6H PRN PRN Reason: DYSPEPSIA Albuterol/Ipratropium (Duoneb -) 1 amp NEB Q6H PRN PRN Reason: SHORTNESS OF BREATH Last Admin: 05/02/16 11:13 Dose: 1 amp Apixaban (Eliquis -) 2.5 mg PO BID [facility] Last Admin: 05/08/16 09:23 Dose: 2.5 mg Atorvastatin Calcium (Lipitor -) 10 mg PO HS [facility] Last Admin: 05/07/16 21:02 Dose: 10 mg Bacitracin (Bacitracin -) 1 applic TP BID [facility] Last Admin: 05/08/16 09:18 Dose: Not Given Cholecalciferol (Vitamin D3 -) 400 unit PO DAILY [facility] Last Admin: 05/08/16 09:37 Dose: 400 unit Diltiazem HCl (Cardizem Injection -) 10 mg IVPUSH Q6H PRN Last Admin: 04/28/16 13:05 Dose: 10 mg Docusate Sodium (Colace -) 100 mg PO BID [facility] Last Admin: 05/08/16 09:18 Dose: 100 mg Levothyroxine Sodium (Synthroid -) 100 mcg PO DAILY@0700 [facility] Last Admin: 05/08/16 06:45 Dose: 100 mcg Lisinopril (Prinivil) 10 mg PO DAILY [facility] Last Admin: 05/08/16 09:18 Dose: 10 mg Metoprolol Tartrate (Lopressor -) 50 mg PO BID [facility] Last Admin: 05/08/16 09:18 Dose: 50 mg Morphine Sulfate (Morphine Injection -) 1 mg IVPUSH Q2H PRN PRN Reason: PAIN Nitroglycerin (Nitrostat -) 0.4 mg SL PRN PRN Ondansetron HCl (Zofran Odt -) 4 mg SL Q8H PRN PRN Reason: NAUSEA Last Admin: 04/25/16 09:44 Dose: 4 mg Oxycodone HCl (Roxicodone -) 5 mg PO Q4H PRN PRN Reason: PAIN Last Admin: 05/07/16 20:35 Dose: 5 mg Pantoprazole Sodium (Protonix -) 40 mg PO DAILY [facility] Last Admin: 05/08/16 09:18 Dose: 40 mg Polyethylene Glycol (Miralax (For Daily Use) -) 17 gm PO BID [facility] Last Admin: 05/08/16 09:23 Dose: Not Given Potassium Chloride (K-Dur -) 40 meq PO DAILY [facility] Last Admin: 05/08/16 09:18 Dose: 40 meq Ranitidine HCl (Zantac -) 150 mg PO HS [facility] Last Admin: 05/07/16 21:02 Dose: 150 mg - Objective Vital Signs: Vital Signs Temperature 98.2 F 05/08/16 05:52 Pulse Rate 63 05/08/16 05:52 Respiratory Rate 18 05/08/16 05:52 Blood Pressure 139/72 05/08/16 05:52 O2 Sat by Pulse Oximetry (%) 97 05/07/16 09:00 Constitutional: Yes: No Distress Eyes: Yes: Conjunctiva Clear Cardiovascular: Yes: Regular Rate and Rhythm, S1, S2 Respiratory: Yes: CTA Bilaterally Gastrointestinal: Yes: Normal Bowel Sounds, Soft. No: Tenderness Genitourinary: No: CVA Tenderness - Left, CVA Tenderness - Right Extremities: Yes: Other (R knee no erythema/ warmth) Edema: No Labs: CBC, BMP 05/08/16 06:20 05/08/16 06:20 INR, PTT INR 1.81 (0.82-1.09) H D 04/29/16 05:45 Assessment/Plan Leukocytosis- improved + urine c/s ESBL Possible pyelonephritis Day #10 ertapenem PCN / Quinolone allergy Completed 10d course of ertapenem. D/C antibiotic, observe Contact precautions Etiology of hydronephrosis not clear - no evidence of nephrolithiasis Advise urology evaluation as inpatient or outpatient to R/O obstructive uropathy. Will sign off. Reconsult as needed.
--- NOTE | 2016-05-08 12:30 | PN ---
Progress Note, Physician Chief Complaint: Events noted Not in distress History of Present Illness: Patient was seen and examined. Awake and alert. Chart was reviewed Denied chest pain. Denies shortness of breath knee pain improved Generalized weakness - Current Medication List Current Medications: Active Medications Acetaminophen (Tylenol -) 650 mg PO Q6H PRN PRN Reason: PAIN SCALE 6-10 Last Admin: 05/05/16 04:04 Dose: 650 mg Al Hydroxide/Mg Hydroxide (Mylanta Oral Suspension -) 30 ml PO Q6H PRN PRN Reason: DYSPEPSIA Albuterol/Ipratropium (Duoneb -) 1 amp NEB Q6H PRN PRN Reason: SHORTNESS OF BREATH Last Admin: 05/02/16 11:13 Dose: 1 amp Apixaban (Eliquis -) 2.5 mg PO BID [facility] Last Admin: 05/08/16 09:23 Dose: 2.5 mg Atorvastatin Calcium (Lipitor -) 10 mg PO HS [facility] Last Admin: 05/07/16 21:02 Dose: 10 mg Bacitracin (Bacitracin -) 1 applic TP BID [facility] Last Admin: 05/08/16 09:18 Dose: Not Given Cholecalciferol (Vitamin D3 -) 400 unit PO DAILY [facility] Last Admin: 05/08/16 09:37 Dose: 400 unit Diltiazem HCl (Cardizem Injection -) 10 mg IVPUSH Q6H PRN Last Admin: 04/28/16 13:05 Dose: 10 mg Docusate Sodium (Colace -) 100 mg PO BID [facility] Last Admin: 05/08/16 09:18 Dose: 100 mg Levothyroxine Sodium (Synthroid -) 100 mcg PO DAILY@0700 [facility] Last Admin: 05/08/16 06:45 Dose: 100 mcg Lisinopril (Prinivil) 10 mg PO DAILY [facility] Last Admin: 05/08/16 09:18 Dose: 10 mg Metoprolol Tartrate (Lopressor -) 50 mg PO BID [facility] Last Admin: 05/08/16 09:18 Dose: 50 mg Morphine Sulfate (Morphine Injection -) 1 mg IVPUSH Q2H PRN PRN Reason: PAIN Nitroglycerin (Nitrostat -) 0.4 mg SL PRN PRN Ondansetron HCl (Zofran Odt -) 4 mg SL Q8H PRN PRN Reason: NAUSEA Last Admin: 12/20/16 09:44 Dose: 4 mg Oxycodone HCl (Roxicodone -) 5 mg PO Q4H PRN PRN Reason: PAIN Last Admin: 05/07/16 20:35 Dose: 5 mg Pantoprazole Sodium (Protonix -) 40 mg PO DAILY [facility] Last Admin: 05/08/16 09:18 Dose: 40 mg Polyethylene Glycol (Miralax (For Daily Use) -) 17 gm PO BID [facility] Last Admin: 05/08/16 09:23 Dose: Not Given Potassium Chloride (K-Dur -) 40 meq PO DAILY [facility] Last Admin: 05/08/16 09:18 Dose: 40 meq Ranitidine HCl (Zantac -) 150 mg PO HS [facility] Last Admin: 05/07/16 21:02 Dose: 150 mg - Objective Vital Signs: Vital Signs Temperature 97.9 F 05/08/16 10:00 Pulse Rate 76 05/08/16 10:00 Respiratory Rate 18 05/08/16 10:00 Blood Pressure 130/74 05/08/16 10:00 O2 Sat by Pulse Oximetry (%) 97 05/08/16 09:00 Neck: Yes: Supple Cardiovascular: Yes: Regular Rate and Rhythm, S1, S2 Respiratory: Yes: CTA Bilaterally Gastrointestinal: Yes: Normal Bowel Sounds, Soft. No: Tenderness Edema: No Labs: CBC, BMP 05/08/16 06:20 05/08/16 06:20 Problem List - Problems (1) Nasal bone fracture Code(s): S02.2XXA - FRACTURE OF NASAL BONES, INIT ENCNTR FOR CLOSED FRACTURE (2) Right patella fracture Code(s): S82.001A - UNSP FRACTURE OF RIGHT PATELLA, INIT FOR CLOS FX Qualifiers: Encounter type: initial encounter Fracture type: closed Fracture morphology: unspecified fracture morphology Fracture alignment: displaced Qualified Code(s): S82.001A - Unspecified fracture of right patella, initial encounter for closed fracture (3) GERD (gastroesophageal reflux disease) Code(s): K21.9 - GASTRO-ESOPHAGEAL REFLUX DISEASE WITHOUT ESOPHAGITIS Qualifiers: Esophagitis presence: without esophagitis Qualified Code(s): K21.9 - Gastro-esophageal reflux disease without esophagitis (4) Hypercholesteremia Code(s): E78.0 - PURE HYPERCHOLESTEROLEMIA * DO NOT USE * (5) Hypertension Code(s): I10 - ESSENTIAL (PRIMARY) HYPERTENSION Qualifiers: Hypertension type: essential hypertension Qualified Code(s): I10 - Essential (primary) hypertension (6) Hypothyroid Code(s): E03.9 - HYPOTHYROIDISM, UNSPECIFIED Qualifiers: Hypothyroidism type: unspecified Qualified Code(s): E03.9 - Hypothyroidism, unspecified (7) Atrial fibrillation Code(s): I48.91 - UNSPECIFIED ATRIAL FIBRILLATION Qualifiers: Atrial fibrillation type: paroxysmal Qualified Code(s): I48.0 - Paroxysmal atrial fibrillation Assessment/Plan 1. Patella fracture secondary to mechanical fall post ORIF 2. 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 MVP 5. HTN/HCVD 6. Hyperlipidemia 7. Hypothyroidism 8. History of GERD/esophageal spasm 9. Paroxysmal atrial fibrillation in sinus rhythm 10. Acute on CKD 11. Leukocytosis - left pyelonephritis 12. Mild-moderate left hydronephrosis PLAN: 1. Continue Lopressor 50 mg BID, Lisinopril 10 mg QD and Lipitor 10 mg QHS 2. Continue Eliquis 2.5 mg BID 3. DVT and GI prophylaxis 4. Completed antibiotic course - off antibiotic as per ID 5. PT and eventually rehab Further plans are to follow Shakir Cheney MD
[2016-05-08] MEDS: oxyCODONE HCL 5 MG TABLET PO PRN ×2 (16:01→22:00)
[2016-05-08] MEDS: ATORVASTATIN CA 10 MG TABLET (FP) PO SCH (21:52)
[2016-05-08] MEDS: RANITIDINE HCL 150 MG TABLET (FP) PO SCH (21:57)
[2016-05-09] MEDS: LEVOTHYROXINE NA 100 MCG TABLET (FP) PO SCH (06:18)
[2016-05-09 07:13] LABS: BASOPHIL 0.7 % (0-2.0); MCH 30.2 pg (25.7-33.7); MCHC 32.7 g/dl (32.0-36.0); MEAN CELL VOLUME 92.4 fl (80-96); MEAN PLT VOLUME 8.3 fl (7.5-11.1); NEUTROPHILS 79.1 % (42.8-82.8); PLATELET COUNT 381 K/MM3 (134-434); RDW 14.6 % (11.6-15.6); WHITE BLOOD COUNT 11.4 K/mm3 (4.0-10.0)
[2016-05-09 07:41] LABS: CALCIUM 7.9 mg/dL (8.5-10.1); CREATININE 0.7 mg/dL (0.55-1.02)
[2016-05-09] MEDS: BACITRACIN 30 GM TUBE TOPICAL OINTMENT TP SCH ×2 (10:19→21:55)
--- NOTE | 2016-05-09 11:10 | PN ---
Progress Note (short form) - Note Progress Note: Resting in NAD. No CP or SOB. No acute events overnight. Intake & Output 05/06/16 05/07/16 05/08/16 05/09/16 23:59 23:59 23:59 23:59 Intake Total 574 370 3435 Balance 796 725 5229 Last Vital Signs Temp Pulse Resp BP Pulse Ox 97.6 F 62 18 129/69 94 L 05/09/16 08:07 05/09/16 08:07 05/09/16 08:07 05/09/16 08:07 05/08/16 21:00 Active Medications Acetaminophen (Tylenol -) 650 mg PO Q6H PRN PRN Reason: PAIN SCALE 6-10 Last Admin: 05/05/16 04:04 Dose: 650 mg Al Hydroxide/Mg Hydroxide (Mylanta Oral Suspension -) 30 ml PO Q6H PRN PRN Reason: DYSPEPSIA Albuterol/Ipratropium (Duoneb -) 1 amp NEB Q6H PRN PRN Reason: SHORTNESS OF BREATH Last Admin: 05/02/16 11:13 Dose: 1 amp Apixaban (Eliquis -) 2.5 mg PO BID [facility] Last Admin: 05/08/16 21:52 Dose: 2.5 mg Atorvastatin Calcium (Lipitor -) 10 mg PO HS [facility] Last Admin: 05/08/16 21:52 Dose: 10 mg Bacitracin (Bacitracin -) 1 applic TP BID [facility] Last Admin: 05/08/16 21:47 Dose: Not Given Cholecalciferol (Vitamin D3 -) 400 unit PO DAILY [facility] Last Admin: 05/08/16 09:37 Dose: 400 unit Diltiazem HCl (Cardizem Injection -) 10 mg IVPUSH Q6H PRN Last Admin: 04/28/16 13:05 Dose: 10 mg Docusate Sodium (Colace -) 100 mg PO BID [facility] Last Admin: 05/08/16 21:51 Dose: 100 mg Levothyroxine Sodium (Synthroid -) 100 mcg PO DAILY@0700 [facility] Last Admin: 05/09/16 06:18 Dose: 100 mcg Lisinopril (Prinivil) 10 mg PO DAILY [facility] Last Admin: 05/08/16 09:18 Dose: 10 mg Metoprolol Tartrate (Lopressor -) 50 mg PO BID [facility] Last Admin: 05/08/16 21:57 Dose: 50 mg Morphine Sulfate (Morphine Injection -) 1 mg IVPUSH Q2H PRN PRN Reason: PAIN Last Admin: 05/09/16 09:59 Dose: 1 mg Nitroglycerin (Nitrostat -) 0.4 mg SL PRN PRN Ondansetron HCl (Zofran Odt -) 4 mg SL Q8H PRN PRN Reason: NAUSEA Last Admin: 04/25/16 09:44 Dose: 4 mg Oxycodone HCl (Roxicodone -) 5 mg PO Q4H PRN PRN Reason: PAIN Last Admin: 05/08/16 22:00 Dose: 5 mg Pantoprazole Sodium (Protonix -) 40 mg PO DAILY [facility] Last Admin: 05/08/16 09:18 Dose: 40 mg Polyethylene Glycol (Miralax (For Daily Use) -) 17 gm PO BID [facility] Last Admin: 05/08/16 21:57 Dose: 17 gm Potassium Chloride (K-Dur -) 40 meq PO DAILY [facility] Last Admin: 05/08/16 09:18 Dose: 40 meq Ranitidine HCl (Zantac -) 150 mg PO HS [facility] Last Admin: 05/08/16 21:57 Dose: 150 mg General: NAD Neck: Yes: Supple Cardiovascular: Yes: Regular Rate and Rhythm, S1, S2 Respiratory: Yes: Clear Gastrointestinal: Yes: Normal Bowel Sounds, Soft. No: Tenderness Extremities: dressed Edema: No Labs: Laboratory Results - last 24 hr 05/09/16 05/09/16 06:00 06:00 WBC 11.4 H RBC 3.44 L Hgb 10.4 L Hct 31.8 L MCV 92.4 MCHC 32.7 RDW 14.6 Plt Count 381 MPV 8.3 Neutrophils % 79.1 Lymphocytes % 10.2 D Monocytes % 7.0 Eosinophils % 3.0 D Basophils % 0.7 Sodium 150 H Potassium 3.8 Chloride 108 H Carbon Dioxide 36 H Anion Gap 6 L BUN 19 H Creatinine 0.7 Random Glucose 75 D Calcium 7.9 L Problem List - Problems (1) Nasal bone fracture Code(s): S02.2XXA - FRACTURE OF NASAL BONES, INIT ENCNTR FOR CLOSED FRACTURE (2) Right patella fracture Code(s): S82.001A - UNSP FRACTURE OF RIGHT PATELLA, INIT FOR CLOS FX Qualifiers: Encounter type: initial encounter Fracture type: closed Fracture morphology: unspecified fracture morphology Fracture alignment: displaced Qualified Code(s): S82.001A - Unspecified fracture of right patella, initial encounter for closed fracture (3) GERD (gastroesophageal reflux disease) Code(s): K21.9 - GASTRO-ESOPHAGEAL REFLUX DISEASE WITHOUT ESOPHAGITIS Qualifiers: Esophagitis presence: without esophagitis Qualified Code(s): K21.9 - Gastro-esophageal reflux disease without esophagitis (4) Hypercholesteremia Code(s): E78.0 - PURE HYPERCHOLESTEROLEMIA * DO NOT USE * (5) Hypertension Code(s): I10 - ESSENTIAL (PRIMARY) HYPERTENSION Qualifiers: Hypertension type: essential hypertension Qualified Code(s): I10 - Essential (primary) hypertension (6) Hypothyroid Code(s): E03.9 - HYPOTHYROIDISM, UNSPECIFIED Qualifiers: Hypothyroidism type: unspecified Qualified Code(s): E03.9 - Hypothyroidism, unspecified (7) Atrial fibrillation Code(s): I48.91 - UNSPECIFIED ATRIAL FIBRILLATION Qualifiers: Atrial fibrillation type: paroxysmal Qualified Code(s): I48.0 - Paroxysmal atrial fibrillation Assessment Patella fracture secondary to mechanical fall post ORIF 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 effusions CVA Hyperlipidemia GERD Acute on CKD PLAN: BD TX PRN O2 as needed PT AC No Pulmonary contraindication for D/C planning Dr Quinones Problem List - Problems (1) Atrial fibrillation Code(s): I48.91 - UNSPECIFIED ATRIAL FIBRILLATION Qualifiers: Atrial fibrillation type: paroxysmal Qualified Code(s): I48.0 - Paroxysmal atrial fibrillation (2) History of stroke Code(s): Z86.73 - PRSNL HX OF TIA (TIA), AND CEREB INFRC W/O RESID DEFICITS (3) Nasal bone fracture Code(s): S02.2XXA - FRACTURE OF NASAL BONES, INIT ENCNTR FOR CLOSED FRACTURE (4) Right patella fracture Code(s): S82.001A - UNSP FRACTURE OF RIGHT PATELLA, INIT FOR CLOS FX Qualifiers: Encounter type: initial encounter Fracture type: closed Fracture morphology: unspecified fracture morphology Fracture alignment: displaced Qualified Code(s): S82.001A - Unspecified fracture of right patella, initial encounter for closed fracture (5) GERD (gastroesophageal reflux disease) Code(s): K21.9 - GASTRO-ESOPHAGEAL REFLUX DISEASE WITHOUT ESOPHAGITIS Qualifiers: Esophagitis presence: without esophagitis Qualified Code(s): K21.9 - Gastro-esophageal reflux disease without esophagitis (6) Hypercholesteremia Code(s): E78.0 - PURE HYPERCHOLESTEROLEMIA * DO NOT USE * (7) Hypertension Code(s): I10 - ESSENTIAL (PRIMARY) HYPERTENSION Qualifiers: Hypertension type: essential hypertension Qualified Code(s): I10 - Essential (primary) hypertension (8) Hypothyroid Code(s): E03.9 - HYPOTHYROIDISM, UNSPECIFIED Qualifiers: Hypothyroidism type: unspecified Qualified Code(s): E03.9 - Hypothyroidism, unspecified
[2016-05-09] MEDS ORDERED: PT OWN MED DRAWER 7, Y5N ONE ×2 (11:30→20:22)
[2016-05-09] MEDS: DOCUSATE SODIUM 100 MG CAPSULE (FP) PO SCH ×2 (11:41→21:55)
[2016-05-09] MEDS: POTASSIUM CHLORIDE TABS 20 MEQ TABLET.ER (FP) PO SCH (11:41)
[2016-05-09] MEDS: PANTOPRAZOLE 40 MG TABLET (FP) PO SCH (11:41)
[2016-05-09] MEDS: METOPROLOL TARTRATE 50 MG TABLET (FP) PO SCH ×2 (11:41→21:53)
[2016-05-09] MEDS: APIXABAN 2.5 MG TABLET PO SCH ×2 (11:42→22:38)
[2016-05-09] MEDS: CHOLECALCIFEROL (VITAMIN D3) 400 UNIT TABLET (FP) PO SCH (11:42)
[2016-05-09] MEDS: POLYETHYLENE GLYCOL 3350 119 GM BTL PO SCH ×2 (11:42→21:55)
[2016-05-09] MEDS: LISINOPRIL 10 MG TABLET (FP) PO SCH (11:42)
--- NOTE | 2016-05-09 15:52 | PN ---
Progress Note, Physician Chief Complaint: Events noted Weakness Diminished appetite History of Present Illness: Patient was seen and examined. Awake and alert. Chart was reviewed Denied chest pain. Denies shortness of breath Generalized weakness - Current Medication List Current Medications: Active Medications Acetaminophen (Tylenol -) 650 mg PO Q6H PRN PRN Reason: PAIN SCALE 6-10 Last Admin: 05/05/16 04:04 Dose: 650 mg Al Hydroxide/Mg Hydroxide (Mylanta Oral Suspension -) 30 ml PO Q6H PRN PRN Reason: DYSPEPSIA Albuterol/Ipratropium (Duoneb -) 1 amp NEB Q6H PRN PRN Reason: SHORTNESS OF BREATH Last Admin: 05/02/16 11:13 Dose: 1 amp Apixaban (Eliquis -) 2.5 mg PO BID [facility] Last Admin: 05/09/16 11:42 Dose: 2.5 mg Atorvastatin Calcium (Lipitor -) 10 mg PO HS [facility] Last Admin: 05/08/16 21:52 Dose: 10 mg Bacitracin (Bacitracin -) 1 applic TP BID [facility] Last Admin: 05/08/16 21:47 Dose: Not Given Cholecalciferol (Vitamin D3 -) 400 unit PO DAILY [facility] Last Admin: 05/09/16 11:42 Dose: 400 unit Diltiazem HCl (Cardizem Injection -) 10 mg IVPUSH Q6H PRN Last Admin: 04/28/16 13:05 Dose: 10 mg Docusate Sodium (Colace -) 100 mg PO BID [facility] Last Admin: 05/09/16 11:41 Dose: 100 mg Dextrose (D5w -) 1,000 mls @ 42 mls/hr IV ASDIR [facility] Levothyroxine Sodium (Synthroid -) 100 mcg PO DAILY@0700 [facility] Last Admin: 05/09/16 06:18 Dose: 100 mcg Lisinopril (Prinivil) 10 mg PO DAILY [facility] Last Admin: 05/09/16 11:42 Dose: 10 mg Metoprolol Tartrate (Lopressor -) 50 mg PO BID [facility] Last Admin: 05/09/16 11:41 Dose: 50 mg Morphine Sulfate (Morphine Injection -) 1 mg IVPUSH Q2H PRN PRN Reason: PAIN Last Admin: 05/09/16 09:59 Dose: 1 mg Nitroglycerin (Nitrostat -) 0.4 mg SL PRN PRN Ondansetron HCl (Zofran Odt -) 4 mg SL Q8H PRN PRN Reason: NAUSEA Last Admin: 04/25/16 09:44 Dose: 4 mg Oxycodone HCl (Roxicodone -) 5 mg PO Q4H PRN PRN Reason: PAIN Last Admin: 05/08/16 22:00 Dose: 5 mg Pantoprazole Sodium (Protonix -) 40 mg PO DAILY [facility] Last Admin: 05/09/16 11:41 Dose: 40 mg Polyethylene Glycol (Miralax (For Daily Use) -) 17 gm PO BID [facility] Last Admin: 05/09/16 11:42 Dose: Not Given Potassium Chloride (K-Dur -) 40 meq PO DAILY [facility] Last Admin: 05/09/16 11:41 Dose: 40 meq Ranitidine HCl (Zantac -) 150 mg PO HS [facility] Last Admin: 05/08/16 21:57 Dose: 150 mg - Objective Vital Signs: Vital Signs Temperature 97.4 F L 05/09/16 14:06 Pulse Rate 60 05/09/16 14:06 Respiratory Rate 20 05/09/16 14:06 Blood Pressure 117/59 05/09/16 14:06 O2 Sat by Pulse Oximetry (%) 96 05/09/16 11:00 Neck: Yes: Supple Cardiovascular: Yes: Regular Rate and Rhythm, S1, S2 Respiratory: Yes: Diminished Gastrointestinal: Yes: Normal Bowel Sounds, Soft. No: Tenderness Edema: No Labs: CBC, BMP 05/09/16 06:00 05/09/16 06:00 Problem List - Problems (1) Nasal bone fracture Code(s): S02.2XXA - FRACTURE OF NASAL BONES, INIT ENCNTR FOR CLOSED FRACTURE (2) Right patella fracture Code(s): S82.001A - UNSP FRACTURE OF RIGHT PATELLA, INIT FOR CLOS FX Qualifiers: Encounter type: initial encounter Fracture type: closed Fracture morphology: unspecified fracture morphology Fracture alignment: displaced Qualified Code(s): S82.001A - Unspecified fracture of right patella, initial encounter for closed fracture (3) GERD (gastroesophageal reflux disease) Code(s): K21.9 - GASTRO-ESOPHAGEAL REFLUX DISEASE WITHOUT ESOPHAGITIS Qualifiers: Esophagitis presence: without esophagitis Qualified Code(s): K21.9 - Gastro-esophageal reflux disease without esophagitis (4) Hypercholesteremia Code(s): E78.0 - PURE HYPERCHOLESTEROLEMIA * DO NOT USE * (5) Hypertension Code(s): I10 - ESSENTIAL (PRIMARY) HYPERTENSION Qualifiers: Hypertension type: essential hypertension Qualified Code(s): I10 - Essential (primary) hypertension (6) Hypothyroid Code(s): E03.9 - HYPOTHYROIDISM, UNSPECIFIED Qualifiers: Hypothyroidism type: unspecified Qualified Code(s): E03.9 - Hypothyroidism, unspecified (7) Atrial fibrillation Code(s): I48.91 - UNSPECIFIED ATRIAL FIBRILLATION Qualifiers: Atrial fibrillation type: paroxysmal Qualified Code(s): I48.0 - Paroxysmal atrial fibrillation Assessment/Plan 1. Patella fracture secondary to mechanical fall post ORIF 2. 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 MVP 5. HTN/HCVD 6. Hyperlipidemia 7. Hypothyroidism 8. History of GERD/esophageal spasm 9. Paroxysmal atrial fibrillation in sinus rhythm 10. Acute on CKD 11. Leukocytosis - left pyelonephritis 12. Mild-moderate left hydronephrosis PLAN: 1. Continue Lopressor 50 mg BID, Lisinopril 10 mg QD and Lipitor 10 mg QHS 2. Continue Eliquis 2.5 mg BID 3. DVT and GI prophylaxis 4. Free water gently as Na level is elevated, but with caution due to risk of heart failure 5. PT and eventually rehab. Encourage PO intake Further plans are to follow Shakir Cheney MD
[2016-05-09] MEDS: DEXTROSE 5%-WATER - 1,000 ML IV SCH (18:18)
--- NOTE | 2016-05-09 18:39 | PN ---
Physical Exam: SUBJECTIVE: Patient seen and examined NO evenet overnight NO fever, chills, no n/v, no dysuria Mild pain to right lower ext controlled with pain medication OBJECTIVE: Vital Signs Period Temp Pulse Resp BP Sys/Smith Pulse Ox Last 24 Hr 97.4 F-98 F 58-74 18-20 117-138/59-80 94-96 GENERAL: The patient is awake, alert, and fully oriented, in no acute distress. HEAD: Normal with no signs of trauma. EYES: PERRL, extraocular movements intact, sclera anicteric, conjunctiva clear. No ptosis. ENT: Ears normal, nares patent, oropharynx clear without exudates, moist mucous membranes. NECK: Trachea midline, full range of motion, supple. LUNGS: Breath sounds equal, clear to auscultation bilaterally, no wheezes, no crackles, no accessory muscle use. HEART: Regular rate and rhythm, S1, S2 without murmur, rub or gallop. ABDOMEN: Soft, nontender, nondistended, normoactive bowel sounds, no guarding, no rebound, no hepatosplenomegaly, no masses. EXTREMITIES: 2+ pulses, warm, well-perfused. right lower ext mildly swollen, Limited ROM in right knee, tenderness on palpation. right knee with surgical dressing, no hematoma, no bleeding NEUROLOGICAL: Normal speech, gait not observed. PSYCH: Normal mood, normal affect. SKIN: Warm, dry, normal turgor, no rashes or lesions noted Laboratory Results - last 24 hr 05/09/16 05/09/16 06:00 06:00 WBC 11.4 H RBC 3.44 L Hgb 10.4 L Hct 31.8 L MCV 92.4 MCHC 32.7 RDW 14.6 Plt Count 381 MPV 8.3 Neutrophils % 79.1 Lymphocytes % 10.2 D Monocytes % 7.0 Eosinophils % 3.0 D Basophils % 0.7 Sodium 150 H Potassium 3.8 Chloride 108 H Carbon Dioxide 36 H Anion Gap 6 L BUN 19 H Creatinine 0.7 Random Glucose 75 D Calcium 7.9 L Active Medications Generic Name Dose Route Start Last Admin Trade Name Freq PRN Reason Stop Dose Admin Acetaminophen 650 mg 04/19/16 10:58 05/05/16 04:04 Tylenol - PO 650 mg Q6H PRN Administration PAIN SCALE 6-10 Al Hydroxide/Mg Hydroxide 30 ml 04/19/16 10:58 Mylanta Oral Suspension - PO Q6H PRN DYSPEPSIA Albuterol/Ipratropium 1 amp 04/24/16 15:59 05/02/16 11:13 Duoneb - NEB 1 amp Q6H PRN Administration SHORTNESS OF BREATH Apixaban 2.5 mg 05/01/16 12:30 05/09/16 11:42 Eliquis - PO 2.5 mg BID [facility] Administration Atorvastatin Calcium 10 mg 04/19/16 22:00 05/08/16 21:52 Lipitor - PO 10 mg HS [facility] Administration Bacitracin 1 applic 04/19/16 22:00 05/09/16 10:19 Bacitracin - TP Not Given BID [facility] Cholecalciferol 400 unit 04/20/16 10:00 05/09/16 11:42 Vitamin D3 - PO 400 unit DAILY [facility] Administration Diltiazem HCl 10 mg 04/27/16 11:31 04/28/16 13:05 Cardizem Injection - IVPUSH 10 mg Q6H PRN Administration Docusate Sodium 100 mg 04/21/16 13:00 05/09/16 11:41 Colace - PO 100 mg BID [facility] Administration Dextrose 1,000 mls @ 42 mls/hr 05/09/16 15:45 05/09/16 18:18 D5w - IV 42 mls/hr ASDIR [facility] Administration Levothyroxine Sodium 100 mcg 04/20/16 07:00 05/09/16 06:18 Synthroid - PO 100 mcg DAILY@0700 [facility] Administration Lisinopril 10 mg 04/20/16 10:00 05/09/16 11:42 Prinivil PO 10 mg DAILY [facility] Administration Metoprolol Tartrate 50 mg 04/30/16 22:00 05/09/16 11:41 Lopressor - PO 50 mg BID [facility] Administration Morphine Sulfate 1 mg 05/07/16 19:44 05/09/16 09:59 Morphine Injection - IVPUSH 1 mg Q2H PRN Administration PAIN Nitroglycerin 0.4 mg 04/19/16 10:58 Nitrostat - SL PRN PRN Ondansetron HCl 4 mg 04/22/16 10:45 04/25/16 09:44 Zofran Odt - SL 4 mg Q8H PRN Administration NAUSEA Oxycodone HCl 5 mg 04/24/16 13:02 05/08/16 22:00 Roxicodone - PO 5 mg Q4H PRN Administration PAIN Pantoprazole Sodium 40 mg 04/20/16 10:00 05/09/16 11:41 Protonix - PO 40 mg DAILY [facility] Administration Polyethylene Glycol 17 gm 04/21/16 13:00 05/09/16 11:42 Miralax (For Daily Use) - PO Not Given BID [facility] Potassium Chloride 40 meq 05/01/16 10:00 05/09/16 11:41 K-Dur - PO 40 meq DAILY [facility] Administration Ranitidine HCl 150 mg 04/19/16 22:00 05/08/16 21:57 Zantac - PO 150 mg HS [facility] Administration CBC, BMP 05/09/16 06:00 05/09/16 06:00 ASSESSMENT/PLAN: 89 year old female with pmh of HTN, Hyperlipidemia, PAF, CVA, Hypothyropidism, GERD with present s/p fall and was fount to have right patellar fracture and UTI UTI from ESBL Treatment completed yesterday with Ertapenem 10 days WBC trending down, no fever, chills, no dysuria US renal showed persitent right hyodronephosis Consult Dr Rodriguez, Urology to evaluate Right palletlar fracture PT therapy Weight bearing as tolerated Pain control Hypernatremia and dehydration Water deficit 2.3 liter Start D5W at 42 ml/h for 12 hours Worry about CHF and volume overload Will reassess volume status in am D5W discussed with cardiology Afib controlled on lopressor PO On Eliquis 2.5 mg BID Low dose is rt older ago, previous LINDA/CKD H/o CVA ON eliquis on Lipitor On Lisinopril and Lopressor HTN On lopressor and lisinopril HYperlipidemia On LIpitor Hypothyroidism ON synthroid GERD On zantac and protonix po Acute systolic and diastolic CHF currently resolved, pt is actually dehydrated right now continue to monitor Hypokalemia Resolved K 3.8 on Kdur PO FEN fluid: D5w at 42 Electrolytes: Monitor for hypernatremia and hypokalemia, bmp in am Nutrition: DVT: Eliquis Disposition: keep in medsurg. f/u chemistry and urology consult Visit type - Emergency Visit Emergency Visit: Yes ED Registration Date: 04/15/16 Care time: The patient presented to the Emergency Department on the above date and was hospitalized for further evaluation of their emergent condition. - New Patient This patient is new to me today: Yes Date on this admission: 05/09/16 - Critical Care Critical Care patient: No
--- NOTE | 2016-05-09 18:55 | PN ---
Teaching Attending Note Name of Resident: Jose Carlos Pineda ATTENDING PHYSICIAN STATEMENT I saw and evaluated the patient. I reviewed the resident's note and discussed the case with the resident. I agree with the resident's findings and plan as documented. SUBJECTIVE tired and fatigued . thirsty OBJECTIVE: NAD. awake , oriented to self, year , and place CV: RRR, no MRG Lungs : decreased breath sounds at bases Abd : soft, NT, ND , NL BS Ext :trace R knee and leg edema , with surgical dressing on knee and splint . DP 2+ ., nl sensation of foot Assessment/Plan: This is an 89-year-old woman with a history of HTN, hyperlipidemia, CVA, hypothyroidism, GERD who came to the ER with a right patellar fracture after a fall. 1- ESBL UTI :last day of Abx yesterday 2- R patellar fx : WBAT cont po pain meds PT 3- Dehydration : due to poor oral intake . Free water deficit 2.2 L -holding lasix and po hydration did nto work - start D5w @45 cc/hr x 12 hr and recheck NA at MN and in am - cont to hold lasix 4- Hypokalemia : NL on daily Kcl. monitor 5- A fib : cont eliquis and BB 6- Acute D and S CHF: echo with LVH and mildly reduced EF. IV lasix on hold now . no signs of fluid overload now , but looks dehydrated cont to monitor 7- DVT px on eliquis HLOC D/W pt and daughter
[2016-05-09] MEDS: oxyCODONE HCL 5 MG TABLET PO PRN (20:38)
[2016-05-09] MEDS: ATORVASTATIN CA 10 MG TABLET (FP) PO SCH (21:53)
[2016-05-09] MEDS: RANITIDINE HCL 150 MG TABLET (FP) PO SCH (21:53)
[2016-05-10] MEDS: LEVOTHYROXINE NA 100 MCG TABLET (FP) PO SCH (06:05)
[2016-05-10 07:14] LABS: MCH 30.2 pg (25.7-33.7); MCHC 32.3 g/dl (32.0-36.0); MEAN CELL VOLUME 93.6 fl (80-96); MEAN PLT VOLUME 8.4 fl (7.5-11.1); PLATELET COUNT 372 K/MM3 (134-434); WHITE BLOOD COUNT 11.3 K/mm3 (4.0-10.0)
[2016-05-10 08:09] LABS: CALCIUM 7.9 mg/dL (8.5-10.1); CREATININE 0.8 mg/dL (0.55-1.02); MAGNESIUM 2.7 mg/dL (1.8-2.4); PHOSPHOROUS 2.4 mg/dL (2.5-4.9)
[2016-05-10] MEDS ORDERED: PT OWN MED DRAWER 7, Y5N ONE (11:39)
--- NOTE | 2016-05-10 11:39 | CONSULT ---
Consult Consult Specialty:: urology Reason for Consultation:: bilateral hydronephrosis - History of Present Illness Chief Complaint: bilateral hydronephrosis History of Present Illness: 89 year old female with patellar fracture. Has a history of recurrent UTI. Renal sonogram shows bilateral hydro. Patient is unsure if shes had this before. She has no pain associated with this finding. Her creatinine is normal - History Source History Provided By: Patient, Medical Record Limitations to Obtaining History: No Limitations - Past Medical History [employer]OR [employer]: Yes: CVA Cardio/Vascular: Yes: HTN, Hyperlipdemia Gastrointestinal: Yes: GERD Renal/: Yes: UTI - Past Surgical History Past Surgical History: Yes: Hysterectomy - Alcohol/Substance Use Hx Alcohol Use: No - Smoking History Smoking history: Unknown if ever smoked Have you smoked in the past 12 months: No Aproximately how many cigarettes per day: 0 - Social History ADL: Independent History of Recent Travel: No Home Medications - Allergies Allergies/Adverse Reactions: Allergies Allergy/AdvReac Type Severity Reaction Status Date / Time ciprofloxacin [From Cipro] Allergy Verified 04/15/16 15:40 ciprofloxacin HCl Allergy Verified 04/15/16 15:40 [From Cipro] codeine Allergy Verified 04/15/16 15:40 Penicillins Allergy Verified 04/15/16 15:40 - Home Medications Home Medications: Ambulatory Orders Levothyroxine [Synthroid -] 0.1 mg PO DAILY 02/17/13 Lisinopril [Prinivil] 10 mg PO DAILY 02/17/13 Aspirin/Dipyridamole [Aggrenox -] 1 combo PO BID 10/27/13 Metoprolol Tartrate [Lopressor -] 25 mg PO DAILY 10/27/13 Simvastatin [Zocor -] 20 mg PO HS 10/27/13 Nitroglycerin Sublingual [Nitrostat -] 0.4 mg SL PRN 09/16/14 Ranitidine [Zantac -] 150 mg PO HS #0 tablet 09/17/14 Aspirin/Dipyridamole [Aggrenox -] 1 combo PO BID 04/15/16 Cholecalciferol (Vitamin D3) [Vitamin D3 -] 400 unit PO DAILY 04/15/16 Famotidine/Ca Carb/Mag Hydrox [Pepcid Complete Tablet Chew] 1 each PO DAILY 02/19 Pantoprazole Sodium 40 mg PO DAILY 04/15/16 Family Disease History - Family Disease History Family Disease History: Other: Father (Parkinsons), Mother (cirrhosis), Brother (bladder cancer) Review of Systems - Review of Systems Genitourinary: denies: No Symptoms, Burning, Discharge, Dysuria, Flank Pain, Frequency, Hematuria, Incontinence, Lesions, Menses, Pain, Testicular Mass, Testicular Pain, Testicular Swelling, Urgency, Vaginal Bleeding, Other Physical Exam Vital Signs: Vital Signs Temperature 97.6 F 05/10/16 06:00 Pulse Rate 72 05/10/16 06:00 Respiratory Rate 20 05/10/16 06:00 Blood Pressure 131/58 05/10/16 06:00 O2 Sat by Pulse Oximetry (%) 96 05/09/16 21:00 Renal/: No: Bladder Distention, CVA Tenderness - Left, CVA Tenderness - Right , Lee Present, Hematuria Labs: CBC, BMP 05/10/16 06:00 05/10/16 06:00 Imaging - Results Ultrasound: Report Reviewed Problem List - Problems (1) Hydronephrosis Assessment/Plan: CT scan ordered to better define anatomy and reason for dilation. Code(s): N13.30 - UNSPECIFIED HYDRONEPHROSIS Qualifiers: Hydronephrosis type: unspecified Qualified Code(s): N13.30 - Unspecified hydronephrosis
[2016-05-10] MEDS: POTASSIUM CHLORIDE TABS 20 MEQ TABLET.ER (FP) PO SCH (11:41)
[2016-05-10] MEDS: DOCUSATE SODIUM 100 MG CAPSULE (FP) PO SCH ×2 (11:42→21:42)
[2016-05-10] MEDS: METOPROLOL TARTRATE 50 MG TABLET (FP) PO SCH ×2 (11:42→21:43)
[2016-05-10] MEDS: LISINOPRIL 10 MG TABLET (FP) PO SCH (11:43)
[2016-05-10] MEDS: CHOLECALCIFEROL (VITAMIN D3) 400 UNIT TABLET (FP) PO SCH (11:43)
[2016-05-10] MEDS: APIXABAN 2.5 MG TABLET PO SCH ×2 (11:43→21:42)
[2016-05-10] MEDS: POLYETHYLENE GLYCOL 3350 119 GM BTL PO SCH ×2 (11:43→21:43)
[2016-05-10] MEDS: PANTOPRAZOLE 40 MG TABLET (FP) PO SCH (11:43)
[2016-05-10] MEDS: BACITRACIN 30 GM TUBE TOPICAL OINTMENT TP SCH ×2 (11:44→21:42)
--- NOTE | 2016-05-10 12:35 | PN ---
Progress Note, Physician History of Present Illness: Dyspnea and LE edema resolved with diuresis, feels weak. No further chest discomfort. - Current Medication List Current Medications: Active Medications Acetaminophen (Tylenol -) 650 mg PO Q6H PRN PRN Reason: PAIN SCALE 6-10 Last Admin: 05/05/16 04:04 Dose: 650 mg Al Hydroxide/Mg Hydroxide (Mylanta Oral Suspension -) 30 ml PO Q6H PRN PRN Reason: DYSPEPSIA Albuterol/Ipratropium (Duoneb -) 1 amp NEB Q6H PRN PRN Reason: SHORTNESS OF BREATH Last Admin: 05/02/16 11:13 Dose: 1 amp Apixaban (Eliquis -) 2.5 mg PO BID [facility] Last Admin: 05/10/16 11:43 Dose: 2.5 mg Atorvastatin Calcium (Lipitor -) 10 mg PO HS [facility] Last Admin: 05/09/16 21:53 Dose: 10 mg Bacitracin (Bacitracin -) 1 applic TP BID [facility] Last Admin: 05/10/16 11:44 Dose: Not Given Cholecalciferol (Vitamin D3 -) 400 unit PO DAILY [facility] Last Admin: 05/10/16 11:43 Dose: 400 unit Diltiazem HCl (Cardizem Injection -) 10 mg IVPUSH Q6H PRN Last Admin: 04/28/16 13:05 Dose: 10 mg Docusate Sodium (Colace -) 100 mg PO BID [facility] Last Admin: 05/10/16 11:42 Dose: Not Given Dextrose (D5w -) 1,000 mls @ 42 mls/hr IV ASDIR [facility] Last Admin: 05/09/16 18:18 Dose: 42 mls/hr Levothyroxine Sodium (Synthroid -) 100 mcg PO DAILY@0700 [facility] Last Admin: 05/10/16 06:05 Dose: 100 mcg Lisinopril (Prinivil) 10 mg PO DAILY [facility] Last Admin: 05/10/16 11:43 Dose: 10 mg Metoprolol Tartrate (Lopressor -) 50 mg PO BID [facility] Last Admin: 05/10/16 11:42 Dose: 50 mg Morphine Sulfate (Morphine Injection -) 1 mg IVPUSH Q2H PRN PRN Reason: PAIN Last Admin: 05/09/16 09:59 Dose: 1 mg Nitroglycerin (Nitrostat -) 0.4 mg SL PRN PRN Ondansetron HCl (Zofran Odt -) 4 mg SL Q8H PRN PRN Reason: NAUSEA Last Admin: 04/25/16 09:44 Dose: 4 mg Oxycodone HCl (Roxicodone -) 5 mg PO Q4H PRN PRN Reason: PAIN Last Admin: 05/09/16 20:38 Dose: 5 mg Pantoprazole Sodium (Protonix -) 40 mg PO DAILY [facility] Last Admin: 05/10/16 11:43 Dose: 40 mg Polyethylene Glycol (Miralax (For Daily Use) -) 17 gm PO BID [facility] Last Admin: 05/10/16 11:43 Dose: Not Given Potassium Chloride (K-Dur -) 40 meq PO DAILY [facility] Last Admin: 05/10/16 11:41 Dose: 40 meq Ranitidine HCl (Zantac -) 150 mg PO HS [facility] Last Admin: 05/09/16 21:53 Dose: 150 mg - Objective Vital Signs: Vital Signs Temperature 97.6 F 05/10/16 06:00 Pulse Rate 72 05/10/16 06:00 Respiratory Rate 20 05/10/16 06:00 Blood Pressure 131/58 05/10/16 06:00 O2 Sat by Pulse Oximetry (%) 96 05/09/16 21:00 Constitutional: Yes: No Distress, Calm, Thin Neck: Yes: Supple Cardiovascular: Yes: Regular Rate and Rhythm Respiratory: Yes: Regular, Diminished Gastrointestinal: Yes: Normal Bowel Sounds, Soft Edema: No Labs: CBC, BMP 05/10/16 06:00 05/10/16 06:00 INR, PTT INR 1.81 (0.82-1.09) H D 04/29/16 05:45 Problem List - Problems (1) Right patella fracture Code(s): S82.001A - UNSP FRACTURE OF RIGHT PATELLA, INIT FOR CLOS FX Qualifiers: Encounter type: initial encounter Fracture type: closed Fracture morphology: unspecified fracture morphology Fracture alignment: displaced Qualified Code(s): S82.001A - Unspecified fracture of right patella, initial encounter for closed fracture (2) Hypercholesteremia Code(s): E78.0 - PURE HYPERCHOLESTEROLEMIA * DO NOT USE * (3) Hypertension Code(s): I10 - ESSENTIAL (PRIMARY) HYPERTENSION Qualifiers: Hypertension type: essential hypertension Qualified Code(s): I10 - Essential (primary) hypertension (4) Hypothyroid Code(s): E03.9 - HYPOTHYROIDISM, UNSPECIFIED Qualifiers: Hypothyroidism type: unspecified Qualified Code(s): E03.9 - Hypothyroidism, unspecified (5) History of stroke Code(s): Z86.73 - PRSNL HX OF TIA (TIA), AND CEREB INFRC W/O RESID DEFICITS (6) Atrial fibrillation Code(s): I48.91 - UNSPECIFIED ATRIAL FIBRILLATION Qualifiers: Atrial fibrillation type: paroxysmal Qualified Code(s): I48.0 - Paroxysmal atrial fibrillation (7) Diastolic CHF, acute on chronic Code(s): I50.33 - ACUTE ON CHRONIC DIASTOLIC (CONGESTIVE) HEART FAILURE (8) Pleural effusion due to CHF (congestive heart failure) Code(s): I50.9 - HEART FAILURE, UNSPECIFIED (9) Pyelonephritis due to Escherichia coli Code(s): N12 - TUBULO-INTERSTITIAL NEPHRITIS, NOT SPCF ACUTE OR CHRONIC B96.20 - UNSP ESCHERICHIA COLI THE CAUSE OF DISEASES CLASSD ELSWHR (10) Leukocytosis Code(s): D72.829 - ELEVATED WHITE BLOOD CELL COUNT, UNSPECIFIED (11) Hydronephrosis Code(s): N13.30 - UNSPECIFIED HYDRONEPHROSIS Qualifiers: Hydronephrosis type: unspecified Qualified Code(s): N13.30 - Unspecified hydronephrosis Assessment/Plan 1. Patella fracture secondary to mechanical fall post ORIF 2. 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 MVP 5. HTN/HCVD 6. Hyperlipidemia 7. Hypothyroidism 8. History of GERD/esophageal spasm 9. Paroxysmal atrial fibrillation in sinus rhythm 10. Acute on CKD 11. Leukocytosis - left pyelonephritis completed abx course 12. Mild-moderate left hydronephrosis PLAN: 1. Continue Lopressor 50 mg BID, Lisinopril 10 mg QD and Lipitor 10 mg QHS 2. Continue Eliquis 2.5 mg BID 3. DVT and GI prophylaxis, urology input appreciated 4. Free water gently as Na level is elevated, but with caution due to risk of heart failure 5. PT and eventually rehab. Encourage PO intake
--- NOTE | 2016-05-10 14:46 | PN ---
Progress Note, Physician Chief Complaint: Ms Mei says she is feeling better, is ready for discharge. Knee pain is controlled. No cp, sob, n/v. - Current Medication List Current Medications: Active Medications Acetaminophen (Tylenol -) 650 mg PO Q6H PRN PRN Reason: PAIN SCALE 6-10 Last Admin: 05/05/16 04:04 Dose: 650 mg Al Hydroxide/Mg Hydroxide (Mylanta Oral Suspension -) 30 ml PO Q6H PRN PRN Reason: DYSPEPSIA Albuterol/Ipratropium (Duoneb -) 1 amp NEB Q6H PRN PRN Reason: SHORTNESS OF BREATH Last Admin: 05/02/16 11:13 Dose: 1 amp Apixaban (Eliquis -) 2.5 mg PO BID [facility] Last Admin: 05/10/16 11:43 Dose: 2.5 mg Atorvastatin Calcium (Lipitor -) 10 mg PO HS [facility] Last Admin: 05/09/16 21:53 Dose: 10 mg Bacitracin (Bacitracin -) 1 applic TP BID [facility] Last Admin: 05/10/16 11:44 Dose: Not Given Cholecalciferol (Vitamin D3 -) 400 unit PO DAILY [facility] Last Admin: 05/10/16 11:43 Dose: 400 unit Diltiazem HCl (Cardizem Injection -) 10 mg IVPUSH Q6H PRN Last Admin: 04/28/16 13:05 Dose: 10 mg Docusate Sodium (Colace -) 100 mg PO BID [facility] Last Admin: 05/10/16 11:42 Dose: Not Given Dextrose (D5w -) 1,000 mls @ 42 mls/hr IV ASDIR [facility] Last Admin: 05/09/16 18:18 Dose: 42 mls/hr Levothyroxine Sodium (Synthroid -) 100 mcg PO DAILY@0700 [facility] Last Admin: 05/10/16 06:05 Dose: 100 mcg Lisinopril (Prinivil) 10 mg PO DAILY [facility] Last Admin: 05/10/16 11:43 Dose: 10 mg Metoprolol Tartrate (Lopressor -) 50 mg PO BID [facility] Last Admin: 05/10/16 11:42 Dose: 50 mg Morphine Sulfate (Morphine Injection -) 1 mg IVPUSH Q2H PRN PRN Reason: PAIN Last Admin: 05/09/16 09:59 Dose: 1 mg Nitroglycerin (Nitrostat -) 0.4 mg SL PRN PRN Ondansetron HCl (Zofran Odt -) 4 mg SL Q8H PRN PRN Reason: NAUSEA Last Admin: 04/25/16 09:44 Dose: 4 mg Oxycodone HCl (Roxicodone -) 5 mg PO Q4H PRN PRN Reason: PAIN Last Admin: 05/09/16 20:38 Dose: 5 mg Pantoprazole Sodium (Protonix -) 40 mg PO DAILY [facility] Last Admin: 05/10/16 11:43 Dose: 40 mg Polyethylene Glycol (Miralax (For Daily Use) -) 17 gm PO BID [facility] Last Admin: 05/10/16 11:43 Dose: Not Given Potassium Chloride (K-Dur -) 40 meq PO DAILY [facility] Last Admin: 05/10/16 11:41 Dose: 40 meq Ranitidine HCl (Zantac -) 150 mg PO HS [facility] Last Admin: 05/09/16 21:53 Dose: 150 mg - Objective Vital Signs: Vital Signs Temperature 97.6 F 05/10/16 06:00 Pulse Rate 72 05/10/16 06:00 Respiratory Rate 20 05/10/16 06:00 Blood Pressure 131/58 05/10/16 06:00 O2 Sat by Pulse Oximetry (%) 96 05/09/16 21:00 Constitutional: Yes: Well Nourished, No Distress, Calm Cardiovascular: Yes: Regular Rate and Rhythm. No: Gallop, Murmur, Rub Respiratory: Yes: Regular, CTA Bilaterally. No: Rales, Rhonchi, Wheezes Gastrointestinal: Yes: Normal Bowel Sounds, Soft. No: Distention, Tenderness Extremities: Yes: WNL Edema: No Labs: CBC, BMP 05/10/16 06:00 05/10/16 06:00 INR, PTT INR 1.81 (0.82-1.09) H D 04/29/16 05:45 Problem List - Problems (1) Chest pain Code(s): R07.9 - CHEST PAIN, UNSPECIFIED (2) Pyelonephritis due to Escherichia coli Code(s): N12 - TUBULO-INTERSTITIAL NEPHRITIS, NOT SPCF ACUTE OR CHRONIC B96.20 - UNSP ESCHERICHIA COLI THE CAUSE OF DISEASES CLASSD [facility] (3) Sepsis Code(s): A41.9 - SEPSIS, UNSPECIFIED ORGANISM (4) Right patella fracture Code(s): S82.001A - UNSP FRACTURE OF RIGHT PATELLA, INIT FOR CLOS FX Qualifiers: Encounter type: initial encounter Fracture type: closed Fracture morphology: unspecified fracture morphology Fracture alignment: displaced Qualified Code(s): S82.001A - Unspecified fracture of right patella, initial encounter for closed fracture (5) GERD (gastroesophageal reflux disease) Code(s): K21.9 - GASTRO-ESOPHAGEAL REFLUX DISEASE WITHOUT ESOPHAGITIS Qualifiers: Esophagitis presence: without esophagitis Qualified Code(s): K21.9 - Gastro-esophageal reflux disease without esophagitis (6) Nasal bone fracture Code(s): S02.2XXA - FRACTURE OF NASAL BONES, INIT ENCNTR FOR CLOSED FRACTURE (7) Hypercholesteremia Code(s): E78.0 - PURE HYPERCHOLESTEROLEMIA * DO NOT USE * (8) Hypertension Code(s): I10 - ESSENTIAL (PRIMARY) HYPERTENSION Qualifiers: Hypertension type: essential hypertension Qualified Code(s): I10 - Essential (primary) hypertension (9) Hypothyroid Code(s): E03.9 - HYPOTHYROIDISM, UNSPECIFIED Qualifiers: Hypothyroidism type: unspecified Qualified Code(s): E03.9 - Hypothyroidism, unspecified Assessment/Plan (1) Hydronephrosis -appreciate urology assistance -CT scan ordered and will follow up (2) ESBL pyelonephritis with sepsis -finished course of antibiotics (3) Right patella fracture Assessment/Plan: -s/p surgery -continue pain control -will need SNF placement -continue PT, encouraged patient to walk with PT Code(s): S82.001A - UNSP FRACTURE OF RIGHT PATELLA, INIT FOR CLOS FX Qualifiers: Encounter type: initial encounter Fracture type: closed Fracture morphology: unspecified fracture morphology Fracture alignment: displaced Qualified Code(s): S82.001A - Unspecified fracture of right patella, initial encounter for closed fracture (4) Hypercholesteremia Assessment/Plan: -continue lipitor Code(s): E78.0 - PURE HYPERCHOLESTEROLEMIA * DO NOT USE * (5) Hypertension Assessment/Plan: -continue current management -controlled Code(s): I10 - ESSENTIAL (PRIMARY) HYPERTENSION (6) Hypothyroid Assessment/Plan: -continue synthroid Code(s): E03.9 - HYPOTHYROIDISM, UNSPECIFIED (7) Pleural effusions -stable (8) Atrial fibrillation -currently in sinus rhythm -continue metoprolol and diltiazem -continue eliquis (9) Diarrhea -resolved
--- NOTE | 2016-05-10 15:24 | PN ---
Progress Note (short form) - Note Progress Note: PULMONARY Denies shortness of breath or chest pain. Feels thirsty. Last Vital Signs Temp Pulse Resp BP Pulse Ox 98.3 F 75 20 110/57 96 05/10/16 14:50 05/10/16 14:50 05/10/16 14:50 05/10/16 14:50 05/09/16 21:00 Gen: NAD at rest HEENT: dry mucous membranes Heart: RRR Lung: decreased breath sounds at the bases Abd: soft, nontender Ext: trace edema CBC, BMP 05/10/16 06:00 05/10/16 06:00 Active Medications Acetaminophen (Tylenol -) 650 mg PO Q6H PRN PRN Reason: PAIN SCALE 6-10 Last Admin: 05/05/16 04:04 Dose: 650 mg Al Hydroxide/Mg Hydroxide (Mylanta Oral Suspension -) 30 ml PO Q6H PRN PRN Reason: DYSPEPSIA Albuterol/Ipratropium (Duoneb -) 1 amp NEB Q6H PRN PRN Reason: SHORTNESS OF BREATH Last Admin: 05/02/16 11:13 Dose: 1 amp Apixaban (Eliquis -) 2.5 mg PO BID [facility] Last Admin: 05/10/16 11:43 Dose: 2.5 mg Atorvastatin Calcium (Lipitor -) 10 mg PO HS [facility] Last Admin: 05/09/16 21:53 Dose: 10 mg Bacitracin (Bacitracin -) 1 applic TP BID [facility] Last Admin: 05/10/16 11:44 Dose: Not Given Cholecalciferol (Vitamin D3 -) 400 unit PO DAILY [facility] Last Admin: 05/10/16 11:43 Dose: 400 unit Diltiazem HCl (Cardizem Injection -) 10 mg IVPUSH Q6H PRN Last Admin: 04/28/16 13:05 Dose: 10 mg Docusate Sodium (Colace -) 100 mg PO BID [facility] Last Admin: 05/10/16 11:42 Dose: Not Given Dextrose (D5w -) 1,000 mls @ 42 mls/hr IV ASDIR [facility] Last Admin: 05/09/16 18:18 Dose: 42 mls/hr Levothyroxine Sodium (Synthroid -) 100 mcg PO DAILY@0700 [facility] Last Admin: 05/10/16 06:05 Dose: 100 mcg Lisinopril (Prinivil) 10 mg PO DAILY [facility] Last Admin: 05/10/16 11:43 Dose: 10 mg Metoprolol Tartrate (Lopressor -) 50 mg PO BID [facility] Last Admin: 05/10/16 11:42 Dose: 50 mg Morphine Sulfate (Morphine Injection -) 1 mg IVPUSH Q2H PRN PRN Reason: PAIN Last Admin: 05/09/16 09:59 Dose: 1 mg Nitroglycerin (Nitrostat -) 0.4 mg SL PRN PRN Ondansetron HCl (Zofran Odt -) 4 mg SL Q8H PRN PRN Reason: NAUSEA Last Admin: 04/25/16 09:44 Dose: 4 mg Oxycodone HCl (Roxicodone -) 5 mg PO Q4H PRN PRN Reason: PAIN Last Admin: 05/09/16 20:38 Dose: 5 mg Pantoprazole Sodium (Protonix -) 40 mg PO DAILY [facility] Last Admin: 05/10/16 11:43 Dose: 40 mg Polyethylene Glycol (Miralax (For Daily Use) -) 17 gm PO BID [facility] Last Admin: 05/10/16 11:43 Dose: Not Given Potassium Chloride (K-Dur -) 40 meq PO DAILY [facility] Last Admin: 05/10/16 11:41 Dose: 40 meq Ranitidine HCl (Zantac -) 150 mg PO HS [facility] Last Admin: 05/09/16 21:53 Dose: 150 mg A/P LV Diastolic Heart Failure Pleural Effusion Patella Fracture Paroxysmal Atrial Fibrillation Acute on Chronic Renal Failure HTN Hyperlipidemia Hydronephrosis - increase free water PO - monitor lytes - holding diuretics as pt appears dry - continue cardiac meds - rate controlled - continue anticoagulation - rehab/PT
[2016-05-10] MEDS: DEXTROSE 5%-WATER - 1,000 ML IV SCH (18:52)
[2016-05-10] MEDS: oxyCODONE HCL 5 MG TABLET PO PRN (20:20)
[2016-05-10] MEDS: ATORVASTATIN CA 10 MG TABLET (FP) PO SCH (21:43)
[2016-05-10] MEDS: RANITIDINE HCL 150 MG TABLET (FP) PO SCH (21:43)
[2016-05-11] MEDS: LEVOTHYROXINE NA 100 MCG TABLET (FP) PO SCH (05:59)
[2016-05-11 07:44] LABS: BASOPHIL 0.5 % (0-2.0); EOSINOPHIL 2.6 % (0-4.5); MCH 30.4 pg (25.7-33.7); MCHC 33.1 g/dl (32.0-36.0); MEAN CELL VOLUME 91.9 fl (80-96); MEAN PLT VOLUME 8.4 fl (7.5-11.1); NEUTROPHILS 71.2 % (42.8-82.8); PLATELET COUNT 373 K/MM3 (134-434); RDW 14.7 % (11.6-15.6); WHITE BLOOD COUNT 9.4 K/mm3 (4.0-10.0)
[2016-05-11 09:02] LABS: CREATININE 0.7 mg/dL (0.55-1.02); MAGNESIUM 2.7 mg/dL (1.8-2.4); PHOSPHOROUS 2.3 mg/dL (2.5-4.9)
[2016-05-11] MEDS ORDERED: PT OWN MED DRAWER 7, Y5N ONE (09:47)
[2016-05-11] MEDS: POTASSIUM CHLORIDE TABS 20 MEQ TABLET.ER (FP) PO SCH (09:49)
[2016-05-11] MEDS: METOPROLOL TARTRATE 50 MG TABLET (FP) PO SCH ×2 (09:49→22:44)
[2016-05-11] MEDS: LISINOPRIL 10 MG TABLET (FP) PO SCH (09:49)
[2016-05-11] MEDS: APIXABAN 2.5 MG TABLET PO SCH ×2 (09:49→22:44)
[2016-05-11] MEDS: CHOLECALCIFEROL (VITAMIN D3) 400 UNIT TABLET (FP) PO SCH (09:49)
[2016-05-11] MEDS: PANTOPRAZOLE 40 MG TABLET (FP) PO SCH (09:49)
[2016-05-11] MEDS: DOCUSATE SODIUM 100 MG CAPSULE (FP) PO SCH ×2 (09:49→22:43)
[2016-05-11] MEDS: BACITRACIN 30 GM TUBE TOPICAL OINTMENT TP SCH ×2 (09:50→22:46)
[2016-05-11] MEDS: POLYETHYLENE GLYCOL 3350 119 GM BTL PO SCH ×2 (09:50→22:44)
--- NOTE | 2016-05-11 10:39 | PN ---
Progress Note (short form) - Note Progress Note: Resting in NAD. No CP or SOB. No acute events overnight. Intake & Output 05/08/16 05/09/16 05/10/16 05/11/16 23:59 23:59 23:59 23:59 Intake Total 0196 799 0203 1000 Balance 2858 572 8893 1000 Last Vital Signs Temp Pulse Resp BP Pulse Ox 97.5 F L 75 18 141/69 96 05/11/16 06:00 05/11/16 09:23 05/11/16 06:00 05/11/16 06:00 05/11/16 09:23 Active Medications Acetaminophen (Tylenol -) 650 mg PO Q6H PRN PRN Reason: PAIN SCALE 6-10 Last Admin: 05/05/16 04:04 Dose: 650 mg Al Hydroxide/Mg Hydroxide (Mylanta Oral Suspension -) 30 ml PO Q6H PRN PRN Reason: DYSPEPSIA Albuterol/Ipratropium (Duoneb -) 1 amp NEB Q6H PRN PRN Reason: SHORTNESS OF BREATH Last Admin: 05/02/16 11:13 Dose: 1 amp Apixaban (Eliquis -) 2.5 mg PO BID [facility] Last Admin: 05/11/16 09:49 Dose: 2.5 mg Atorvastatin Calcium (Lipitor -) 10 mg PO HS [facility] Last Admin: 05/10/16 21:43 Dose: 10 mg Bacitracin (Bacitracin -) 1 applic TP BID [facility] Last Admin: 05/11/16 09:50 Dose: Not Given Cholecalciferol (Vitamin D3 -) 400 unit PO DAILY [facility] Last Admin: 05/11/16 09:49 Dose: 400 unit Diltiazem HCl (Cardizem Injection -) 10 mg IVPUSH Q6H PRN Last Admin: 04/28/16 13:05 Dose: 10 mg Docusate Sodium (Colace -) 100 mg PO BID [facility] Last Admin: 05/11/16 09:49 Dose: 100 mg Dextrose (D5w -) 1,000 mls @ 42 mls/hr IV ASDIR [facility] Last Admin: 05/10/16 18:52 Dose: 42 mls/hr Levothyroxine Sodium (Synthroid -) 100 mcg PO DAILY@0700 [facility] Last Admin: 05/11/16 05:59 Dose: 100 mcg Lisinopril (Prinivil) 10 mg PO DAILY [facility] Last Admin: 05/11/16 09:49 Dose: 10 mg Metoprolol Tartrate (Lopressor -) 50 mg PO BID [facility] Last Admin: 05/11/16 09:49 Dose: 50 mg Morphine Sulfate (Morphine Injection -) 1 mg IVPUSH Q2H PRN PRN Reason: PAIN Last Admin: 05/09/16 09:59 Dose: 1 mg Nitroglycerin (Nitrostat -) 0.4 mg SL PRN PRN Ondansetron HCl (Zofran Odt -) 4 mg SL Q8H PRN PRN Reason: NAUSEA Last Admin: 04/25/16 09:44 Dose: 4 mg Oxycodone HCl (Roxicodone -) 5 mg PO Q4H PRN PRN Reason: PAIN Last Admin: 05/10/16 20:20 Dose: 5 mg Pantoprazole Sodium (Protonix -) 40 mg PO DAILY [facility] Last Admin: 05/11/16 09:49 Dose: 40 mg Polyethylene Glycol (Miralax (For Daily Use) -) 17 gm PO BID [facility] Last Admin: 05/11/16 09:50 Dose: Not Given Potassium Chloride (K-Dur -) 40 meq PO DAILY [facility] Last Admin: 05/11/16 09:49 Dose: 40 meq Ranitidine HCl (Zantac -) 150 mg PO HS [facility] Last Admin: 05/10/16 21:43 Dose: 150 mg General: NAD Neck: Yes: Supple Cardiovascular: Yes: Regular Rate and Rhythm, S1, S2 Respiratory: Yes: Clear Gastrointestinal: Yes: Normal Bowel Sounds, Soft. No: Tenderness Extremities: dressed Edema: No Labs: Laboratory Results - last 24 hr 05/10/16 05/11/16 05/11/16 10:20 06:00 08:30 WBC 9.4 RBC 3.50 L Hgb 10.6 L Hct 32.1 L MCV 91.9 MCHC 33.1 RDW 14.7 Plt Count 373 MPV 8.4 Neutrophils % 71.2 Lymphocytes % 17.5 D Monocytes % 8.2 Eosinophils % 2.6 Basophils % 0.5 Sodium 141 Potassium 4.5 Chloride 106 Carbon Dioxide 31 Anion Gap 4 L BUN 14 Creatinine 0.7 Random Glucose 71 L Calcium 8.0 L Phosphorus 2.3 L Magnesium 2.7 H Stool Occult Blood Negative Problem List - Problems (1) Nasal bone fracture Code(s): S02.2XXA - FRACTURE OF NASAL BONES, INIT ENCNTR FOR CLOSED FRACTURE (2) Right patella fracture Code(s): S82.001A - UNSP FRACTURE OF RIGHT PATELLA, INIT FOR CLOS FX Qualifiers: Encounter type: initial encounter Fracture type: closed Fracture morphology: unspecified fracture morphology Fracture alignment: displaced Qualified Code(s): S82.001A - Unspecified fracture of right patella, initial encounter for closed fracture (3) GERD (gastroesophageal reflux disease) Code(s): K21.9 - GASTRO-ESOPHAGEAL REFLUX DISEASE WITHOUT ESOPHAGITIS Qualifiers: Esophagitis presence: without esophagitis Qualified Code(s): K21.9 - Gastro-esophageal reflux disease without esophagitis (4) Hypercholesteremia Code(s): E78.0 - PURE HYPERCHOLESTEROLEMIA * DO NOT USE * (5) Hypertension Code(s): I10 - ESSENTIAL (PRIMARY) HYPERTENSION Qualifiers: Hypertension type: essential hypertension Qualified Code(s): I10 - Essential (primary) hypertension (6) Hypothyroid Code(s): E03.9 - HYPOTHYROIDISM, UNSPECIFIED Qualifiers: Hypothyroidism type: unspecified Qualified Code(s): E03.9 - Hypothyroidism, unspecified (7) Atrial fibrillation Code(s): I48.91 - UNSPECIFIED ATRIAL FIBRILLATION Qualifiers: Atrial fibrillation type: paroxysmal Qualified Code(s): I48.0 - Paroxysmal atrial fibrillation Assessment Patella fracture secondary to mechanical fall post ORIF 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 effusions CVA Hyperlipidemia GERD Acute on CKD PLAN: BD TX PRN O2 as needed PT AC No Pulmonary contraindication for D/C planning Dr Quinones Problem List - Problems (1) Atrial fibrillation Code(s): I48.91 - UNSPECIFIED ATRIAL FIBRILLATION Qualifiers: Atrial fibrillation type: paroxysmal Qualified Code(s): I48.0 - Paroxysmal atrial fibrillation (2) History of stroke Code(s): Z86.73 - PRSNL HX OF TIA (TIA), AND CEREB INFRC W/O RESID DEFICITS (3) Nasal bone fracture Code(s): S02.2XXA - FRACTURE OF NASAL BONES, INIT ENCNTR FOR CLOSED FRACTURE (4) Right patella fracture Code(s): S82.001A - UNSP FRACTURE OF RIGHT PATELLA, INIT FOR CLOS FX Qualifiers: Encounter type: initial encounter Fracture type: closed Fracture morphology: unspecified fracture morphology Fracture alignment: displaced Qualified Code(s): S82.001A - Unspecified fracture of right patella, initial encounter for closed fracture (5) GERD (gastroesophageal reflux disease) Code(s): K21.9 - GASTRO-ESOPHAGEAL REFLUX DISEASE WITHOUT ESOPHAGITIS Qualifiers: Esophagitis presence: without esophagitis Qualified Code(s): K21.9 - Gastro-esophageal reflux disease without esophagitis (6) Hypercholesteremia Code(s): E78.0 - PURE HYPERCHOLESTEROLEMIA * DO NOT USE * (7) Hypertension Code(s): I10 - ESSENTIAL (PRIMARY) HYPERTENSION Qualifiers: Hypertension type: essential hypertension Qualified Code(s): I10 - Essential (primary) hypertension (8) Hypothyroid Code(s): E03.9 - HYPOTHYROIDISM, UNSPECIFIED Qualifiers: Hypothyroidism type: unspecified Qualified Code(s): E03.9 - Hypothyroidism, unspecified
[2016-05-11] MEDS ORDERED: NAPH,MB-DB/K PH,MBDB POWDER PACKET PO ONE (12:26)
--- NOTE | 2016-05-11 12:27 | PN ---
Progress Note, Physician Chief Complaint: Ms Mei says she is tired. Still with knee pain. No cp, sob, n/v. - Current Medication List Current Medications: Active Medications Acetaminophen (Tylenol -) 650 mg PO Q6H PRN PRN Reason: PAIN SCALE 6-10 Last Admin: 05/05/16 04:04 Dose: 650 mg Albuterol/Ipratropium (Duoneb -) 1 amp NEB Q6H PRN PRN Reason: SHORTNESS OF BREATH Last Admin: 05/02/16 11:13 Dose: 1 amp Apixaban (Eliquis -) 2.5 mg PO BID [facility] Last Admin: 05/11/16 09:49 Dose: 2.5 mg Atorvastatin Calcium (Lipitor -) 10 mg PO HS [facility] Last Admin: 05/10/16 21:43 Dose: 10 mg Bacitracin (Bacitracin -) 1 applic TP BID [facility] Last Admin: 05/11/16 09:50 Dose: Not Given Cholecalciferol (Vitamin D3 -) 400 unit PO DAILY [facility] Last Admin: 05/11/16 09:49 Dose: 400 unit Diltiazem HCl (Cardizem Injection -) 10 mg IVPUSH Q6H PRN Last Admin: 04/28/16 13:05 Dose: 10 mg Docusate Sodium (Colace -) 100 mg PO BID [facility] Last Admin: 05/11/16 09:49 Dose: 100 mg Dextrose (D5w -) 1,000 mls @ 42 mls/hr IV ASDIR [facility] Last Admin: 05/10/16 18:52 Dose: 42 mls/hr Levothyroxine Sodium (Synthroid -) 100 mcg PO DAILY@0700 [facility] Last Admin: 05/11/16 05:59 Dose: 100 mcg Lisinopril (Prinivil) 10 mg PO DAILY [facility] Last Admin: 05/11/16 09:49 Dose: 10 mg Metoprolol Tartrate (Lopressor -) 50 mg PO BID [facility] Last Admin: 05/11/16 09:49 Dose: 50 mg Morphine Sulfate (Morphine Injection -) 1 mg IVPUSH Q2H PRN PRN Reason: PAIN Last Admin: 05/09/16 09:59 Dose: 1 mg Nitroglycerin (Nitrostat -) 0.4 mg SL PRN PRN Ondansetron HCl (Zofran Odt -) 4 mg SL Q8H PRN PRN Reason: NAUSEA Last Admin: 04/25/16 09:44 Dose: 4 mg Oxycodone HCl (Roxicodone -) 5 mg PO Q4H PRN PRN Reason: PAIN Last Admin: 05/10/16 20:20 Dose: 5 mg Pantoprazole Sodium (Protonix -) 40 mg PO DAILY [facility] Last Admin: 05/11/16 09:49 Dose: 40 mg Polyethylene Glycol (Miralax (For Daily Use) -) 17 gm PO BID [facility] Last Admin: 05/11/16 09:50 Dose: Not Given Potassium Chloride (K-Dur -) 40 meq PO DAILY [facility] Last Admin: 05/11/16 09:49 Dose: 40 meq Potassium Phos/Sodium Phos (Phos-Nak Packet -) 1 packet PO ONCE ONE Stop: 05/11/16 12:27 Ranitidine HCl (Zantac -) 150 mg PO HS [facility] Last Admin: 05/10/16 21:43 Dose: 150 mg - Objective Vital Signs: Vital Signs Temperature 97.4 F L 05/11/16 09:00 Pulse Rate 75 05/11/16 09:23 Respiratory Rate 18 05/11/16 10:00 Blood Pressure 142/79 05/11/16 09:00 O2 Sat by Pulse Oximetry (%) 96 05/11/16 10:00 Constitutional: Yes: Well Nourished, No Distress, Calm Cardiovascular: Yes: Regular Rate and Rhythm. No: Gallop, Murmur, Rub Respiratory: Yes: Regular, CTA Bilaterally. No: Rales, Rhonchi, Wheezes Gastrointestinal: Yes: Normal Bowel Sounds, Soft. No: Distention, Tenderness Extremities: Yes: WNL Edema: No Labs: CBC, BMP 05/11/16 06:00 05/11/16 08:30 INR, PTT INR 1.81 (0.82-1.09) H D 04/29/16 05:45 Problem List - Problems (1) Chest pain Code(s): R07.9 - CHEST PAIN, UNSPECIFIED (2) Pyelonephritis due to Escherichia coli Code(s): N12 - TUBULO-INTERSTITIAL NEPHRITIS, NOT SPCF ACUTE OR CHRONIC B96.20 - UNSP ESCHERICHIA COLI [facility] (3) Sepsis Code(s): A41.9 - SEPSIS, UNSPECIFIED ORGANISM (4) Right patella fracture Code(s): S82.001A - UNSP FRACTURE OF RIGHT PATELLA, INIT FOR CLOS FX Qualifiers: Encounter type: initial encounter Fracture type: closed Fracture morphology: unspecified fracture morphology Fracture alignment: displaced Qualified Code(s): S82.001A - Unspecified fracture of right patella, initial encounter for closed fracture (5) GERD (gastroesophageal reflux disease) Code(s): K21.9 - GASTRO-ESOPHAGEAL REFLUX DISEASE WITHOUT ESOPHAGITIS Qualifiers: Esophagitis presence: without esophagitis Qualified Code(s): K21.9 - Gastro-esophageal reflux disease without esophagitis (6) Nasal bone fracture Code(s): S02.2XXA - FRACTURE OF NASAL BONES, INIT ENCNTR FOR CLOSED FRACTURE (7) Hypercholesteremia Code(s): E78.0 - PURE HYPERCHOLESTEROLEMIA * DO NOT USE * (8) Hypertension Code(s): I10 - ESSENTIAL (PRIMARY) HYPERTENSION Qualifiers: Hypertension type: essential hypertension Qualified Code(s): I10 - Essential (primary) hypertension (9) Hypothyroid Code(s): E03.9 - HYPOTHYROIDISM, UNSPECIFIED Qualifiers: Hypothyroidism type: unspecified Qualified Code(s): E03.9 - Hypothyroidism, unspecified Assessment/Plan (1) Hydronephrosis -CT scan reviewed -urology following -rascon placed -can discharge to SNF with rascon (2) ESBL pyelonephritis with sepsis -finished course of antibiotics (3) Right patella fracture Assessment/Plan: -s/p surgery -continue pain control -will need SNF placement -continue PT, encouraged patient to walk with PT Code(s): S82.001A - UNSP FRACTURE OF RIGHT PATELLA, INIT FOR CLOS FX Qualifiers: Encounter type: initial encounter Fracture type: closed Fracture morphology: unspecified fracture morphology Fracture alignment: displaced Qualified Code(s): S82.001A - Unspecified fracture of right patella, initial encounter for closed fracture (4) Hypercholesteremia Assessment/Plan: -continue lipitor Code(s): E78.0 - PURE HYPERCHOLESTEROLEMIA * DO NOT USE * (5) Hypertension Assessment/Plan: -continue current management -controlled Code(s): I10 - ESSENTIAL (PRIMARY) HYPERTENSION (6) Hypothyroid Assessment/Plan: -continue synthroid Code(s): E03.9 - HYPOTHYROIDISM, UNSPECIFIED (7) Pleural effusions -stable (8) Atrial fibrillation -currently in sinus rhythm -continue metoprolol and diltiazem -continue eliquis (9) Diarrhea -resolved
[2016-05-11] MEDS: oxyCODONE HCL 5 MG TABLET PO PRN (12:43)
--- NOTE | 2016-05-11 13:19 | PN ---
Progress Note, Physician History of Present Illness: Dyspnea and LE edema resolved with diuresis, feels weak. No further chest discomfort. Abd/pelvic CT showed markedly distended bladder, L>R hydronephosis. c/o diarrhea. - Current Medication List Current Medications: Active Medications Acetaminophen (Tylenol -) 650 mg PO Q6H PRN PRN Reason: PAIN SCALE 6-10 Last Admin: 05/05/16 04:04 Dose: 650 mg Albuterol/Ipratropium (Duoneb -) 1 amp NEB Q6H PRN PRN Reason: SHORTNESS OF BREATH Last Admin: 05/02/16 11:13 Dose: 1 amp Apixaban (Eliquis -) 2.5 mg PO BID [facility] Last Admin: 05/11/16 09:49 Dose: 2.5 mg Atorvastatin Calcium (Lipitor -) 10 mg PO HS [facility] Last Admin: 05/10/16 21:43 Dose: 10 mg Bacitracin (Bacitracin -) 1 applic TP BID [facility] Last Admin: 05/11/16 09:50 Dose: Not Given Cholecalciferol (Vitamin D3 -) 400 unit PO DAILY [facility] Last Admin: 05/11/16 09:49 Dose: 400 unit Diltiazem HCl (Cardizem Injection -) 10 mg IVPUSH Q6H PRN Last Admin: 04/28/16 13:05 Dose: 10 mg Docusate Sodium (Colace -) 100 mg PO BID [facility] Last Admin: 05/11/16 09:49 Dose: 100 mg Dextrose (D5w -) 1,000 mls @ 42 mls/hr IV ASDIR [facility] Last Admin: 05/10/16 18:52 Dose: 42 mls/hr Levothyroxine Sodium (Synthroid -) 100 mcg PO DAILY@0700 [facility] Last Admin: 05/11/16 05:59 Dose: 100 mcg Lisinopril (Prinivil) 10 mg PO DAILY [facility] Last Admin: 05/11/16 09:49 Dose: 10 mg Metoprolol Tartrate (Lopressor -) 50 mg PO BID [facility] Last Admin: 05/11/16 09:49 Dose: 50 mg Morphine Sulfate (Morphine Injection -) 1 mg IVPUSH Q2H PRN PRN Reason: PAIN Last Admin: 05/09/16 09:59 Dose: 1 mg Nitroglycerin (Nitrostat -) 0.4 mg SL PRN PRN Ondansetron HCl (Zofran Odt -) 4 mg SL Q8H PRN PRN Reason: NAUSEA Last Admin: 04/25/16 09:44 Dose: 4 mg Oxycodone HCl (Roxicodone -) 5 mg PO Q4H PRN PRN Reason: PAIN Last Admin: 05/11/16 12:43 Dose: 5 mg Pantoprazole Sodium (Protonix -) 40 mg PO DAILY [facility] Last Admin: 05/11/16 09:49 Dose: 40 mg Polyethylene Glycol (Miralax (For Daily Use) -) 17 gm PO BID [facility] Last Admin: 05/11/16 09:50 Dose: Not Given Potassium Chloride (K-Dur -) 40 meq PO DAILY [facility] Last Admin: 05/11/16 09:49 Dose: 40 meq Ranitidine HCl (Zantac -) 150 mg PO HS [facility] Last Admin: 05/10/16 21:43 Dose: 150 mg - Objective Vital Signs: Vital Signs Temperature 97.4 F L 05/11/16 09:00 Pulse Rate 75 05/11/16 09:23 Respiratory Rate 18 05/11/16 10:00 Blood Pressure 142/79 05/11/16 09:00 O2 Sat by Pulse Oximetry (%) 96 05/11/16 10:00 Constitutional: Yes: No Distress, Calm Neck: Yes: Supple Cardiovascular: Yes: Regular Rate and Rhythm Respiratory: Yes: Regular, Diminished Gastrointestinal: Yes: Normal Bowel Sounds, Soft Edema: No Labs: CBC, BMP 05/11/16 06:00 05/11/16 08:30 INR, PTT INR 1.81 (0.82-1.09) H D 04/29/16 05:45 Problem List - Problems (1) Right patella fracture Code(s): S82.001A - UNSP FRACTURE OF RIGHT PATELLA, INIT FOR CLOS FX Qualifiers: Encounter type: initial encounter Fracture type: closed Fracture morphology: unspecified fracture morphology Fracture alignment: displaced Qualified Code(s): S82.001A - Unspecified fracture of right patella, initial encounter for closed fracture (2) Hypercholesteremia Code(s): E78.0 - PURE HYPERCHOLESTEROLEMIA * DO NOT USE * (3) Hypertension Code(s): I10 - ESSENTIAL (PRIMARY) HYPERTENSION Qualifiers: Hypertension type: essential hypertension Qualified Code(s): I10 - Essential (primary) hypertension (4) Hypothyroid Code(s): E03.9 - HYPOTHYROIDISM, UNSPECIFIED Qualifiers: Hypothyroidism type: unspecified Qualified Code(s): E03.9 - Hypothyroidism, unspecified (5) History of stroke Code(s): Z86.73 - PRSNL HX OF TIA (TIA), AND CEREB INFRC W/O RESID DEFICITS (6) Atrial fibrillation Code(s): I48.91 - UNSPECIFIED ATRIAL FIBRILLATION Qualifiers: Atrial fibrillation type: paroxysmal Qualified Code(s): I48.0 - Paroxysmal atrial fibrillation (7) Diastolic CHF, acute on chronic Code(s): I50.33 - ACUTE ON CHRONIC DIASTOLIC (CONGESTIVE) HEART FAILURE (8) Pleural effusion due to CHF (congestive heart failure) Code(s): I50.9 - HEART FAILURE, UNSPECIFIED (9) Pyelonephritis due to Escherichia coli Code(s): N12 - TUBULO-INTERSTITIAL NEPHRITIS, NOT SPCF ACUTE OR CHRONIC B96.20 - UNSP ESCHERICHIA COLI THE CAUSE OF DISEASES CLASSD [facility] (10) Leukocytosis Code(s): D72.829 - ELEVATED WHITE BLOOD CELL COUNT, UNSPECIFIED (11) Hydronephrosis Code(s): N13.30 - UNSPECIFIED HYDRONEPHROSIS Qualifiers: Hydronephrosis type: unspecified Qualified Code(s): N13.30 - Unspecified hydronephrosis Assessment/Plan 1. Patella fracture secondary to mechanical fall post ORIF 2. 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 MVP 5. HTN/HCVD 6. Hyperlipidemia 7. Hypothyroidism 8. History of GERD/esophageal spasm 9. Paroxysmal atrial fibrillation in sinus rhythm 10. Acute on CKD 11. Leukocytosis - left pyelonephritis completed abx course 12. Mild-moderate left hydronephrosis with markedly distended bladder 13. Diarrhea r/o c. diff PLAN: 1. Continue Lopressor 50 mg BID, Lisinopril 10 mg QD and Lipitor 10 mg QHS 2. Continue Eliquis 2.5 mg BID 3. DVT and GI prophylaxis, urology input appreciated, check c. diff toxin 4. PT and eventually rehab. Encourage PO intake
[2016-05-11] MEDS: DEXTROSE 5%-WATER - 1,000 ML IV SCH (17:24)
--- NOTE | 2016-05-11 17:52 | PN ---
Progress Note (short form) - Note Progress Note: CT with bilateral hydro to a distended bladder Rascon inserted with large residual Urinary retention with overflow incontinence Likely secondary to deconditioned state Would keep rascon-SD, until more ambulatory Patient may go to rehab with rascon
[2016-05-11] MEDS: ATORVASTATIN CA 10 MG TABLET (FP) PO SCH (22:44)
[2016-05-11] MEDS: RANITIDINE HCL 150 MG TABLET (FP) PO SCH (22:45)
[2016-05-12] MEDS: LEVOTHYROXINE NA 100 MCG TABLET (FP) PO SCH (06:51)
[2016-05-12 08:53] LABS: BASOPHIL 0.7 % (0-2.0); EOSINOPHIL 2.8 % (0-4.5); MCH 30.4 pg (25.7-33.7); MEAN CELL VOLUME 92.3 fl (80-96); MEAN PLT VOLUME 9.1 fl (7.5-11.1); NEUTROPHILS 71.4 % (42.8-82.8); PLATELET COUNT 335 K/MM3 (134-434); RDW 14.6 % (11.6-15.6); WHITE BLOOD COUNT 8.3 K/mm3 (4.0-10.0)
[2016-05-12 09:53] LABS: CALCIUM 7.7 mg/dL (8.5-10.1); CREATININE 0.6 mg/dL (0.55-1.02); MAGNESIUM 2.4 mg/dL (1.8-2.4); PHOSPHOROUS 2.6 mg/dL (2.5-4.9)
[2016-05-12] MEDS: APIXABAN 2.5 MG TABLET PO SCH ×2 (11:09→22:19)
[2016-05-12] MEDS: BACITRACIN 30 GM TUBE TOPICAL OINTMENT TP SCH ×2 (11:09→22:07)
[2016-05-12] MEDS: DOCUSATE SODIUM 100 MG CAPSULE (FP) PO SCH ×2 (11:09→22:18)
[2016-05-12] MEDS: POTASSIUM CHLORIDE TABS 20 MEQ TABLET.ER (FP) PO SCH (11:10)
[2016-05-12] MEDS: CHOLECALCIFEROL (VITAMIN D3) 400 UNIT TABLET (FP) PO SCH (11:10)
[2016-05-12] MEDS: LISINOPRIL 10 MG TABLET (FP) PO SCH (11:10)
[2016-05-12] MEDS: METOPROLOL TARTRATE 50 MG TABLET (FP) PO SCH ×2 (11:10→22:19)
[2016-05-12] MEDS: PANTOPRAZOLE 40 MG TABLET (FP) PO SCH (11:10)
[2016-05-12] MEDS ORDERED: PT OWN MED DRAWER 7, Y5N ONE (11:18)
[2016-05-12] MEDS: POLYETHYLENE GLYCOL 3350 119 GM BTL PO SCH ×2 (11:45→22:19)
--- NOTE | 2016-05-12 13:12 | DS ---
Physical Examination Vital Signs: Vital Signs Temperature 98.5 F 05/12/16 07:12 Pulse Rate 71 05/12/16 07:12 Respiratory Rate 16 05/12/16 07:12 Blood Pressure 121/63 05/12/16 07:12 O2 Sat by Pulse Oximetry (%) 96 05/11/16 21:00 Labs: CBC, BMP 05/12/16 07:00 05/12/16 06:00 Discharge Summary Reason For Visit: RIGHT PATELLA FRACTURE Current Active Problems Atrial fibrillation (Acute) Diastolic CHF, acute on chronic (Acute) History of stroke (Acute) Hydronephrosis (Acute) Leukocytosis (Acute) Nasal bone fracture (Acute) Pleural effusion due to CHF (congestive heart failure) (Acute) Pre-operative cardiovascular examination (Acute) Pyelonephritis due to Escherichia coli (Acute) Right patella fracture (Acute) Sepsis (Acute) Condition: Stable - Instructions Diet, Activity, Other Instructions: regular diet. Up with assistance, further activity per PT. Discharge with rascon in place Referrals: Alfredo Fan MD [Primary Care Provider] - Freddy Marte MD, MD [Staff Physician] - Lester Spear MD [Staff Physician] - Jai Robins MD [Staff Physician] - Guzman Vasques MD [Staff Physician] - Disposition: RESIDENTIAL FACILITY - Home Medications Comprehensive Discharge Medication List: Ambulatory Orders Lisinopril [Prinivil] 10 mg PO DAILY 02/17/13 Simvastatin [Zocor -] 20 mg PO HS 10/27/13 Nitroglycerin Sublingual [Nitrostat -] 0.4 mg SL PRN 09/16/14 Ranitidine [Zantac -] 150 mg PO HS #0 tablet 09/17/14 Cholecalciferol (Vitamin D3) [Vitamin D -] 400 unit PO DAILY 04/15/16 Famotidine/Ca Carb/Mag Hydrox [Pepcid Complete Tablet Chew] 1 each PO DAILY 02/19 Pantoprazole Sodium 40 mg PO DAILY 04/15/16 Acetaminophen [Tylenol .Regular Strength -] 650 mg PO Q6H PRN #0 tablet Albuterol 2.5/Ipratropium 0.5 [Duoneb -] 1 amp NEB Q6H PRN #0 amp 05/12/16 Apixaban [Eliquis -] 2.5 mg PO BID tablet 05/12/16 Bacitracin - [Bacitracin Topical Ointment -] 1 applic TP BID tube 05/12/16 Docusate Sodium [Colace -] 100 mg PO BID capsule 05/12/16 Levothyroxine [Synthroid -] 100 mcg PO DAILY@0700 tablet 05/12/16 Metoprolol Tartrate [Lopressor -] 50 mg PO BID tablet 05/12/16 Oxycodone HCl [Roxicodone -] 5 mg PO Q4H PRN #0 tablet MDD 30mg 05/12/16 Polyethylene Glycol 3350 [Miralax 119 gm Btl -] 17 gm PO BID bottle 05/12/16 Potassium Chloride [K-Dur -] 40 meq PO DAILY tablet.er 05/12/16
[2016-05-12] MEDS: oxyCODONE HCL 5 MG TABLET PO PRN (15:23)
[2016-05-12] MEDS: ACETAMINOPHEN 325 MG TABLET (FP) PO PRN (15:26)
[2016-05-12] MEDS: DEXTROSE 5%-WATER - 1,000 ML IV SCH (18:49)
--- NOTE | 2016-05-12 19:11 | PN ---
Progress Note, Physician Chief Complaint: Ms Mei complains of knee pain, unchanged. Also with weakness. No cp, sob, n /v - Current Medication List Current Medications: Active Medications Acetaminophen (Tylenol -) 650 mg PO Q6H PRN PRN Reason: PAIN SCALE 6-10 Last Admin: 05/12/16 15:26 Dose: 650 mg Albuterol/Ipratropium (Duoneb -) 1 amp NEB Q6H PRN PRN Reason: SHORTNESS OF BREATH Last Admin: 05/02/16 11:13 Dose: 1 amp Apixaban (Eliquis -) 2.5 mg PO BID [facility] Last Admin: 05/12/16 11:09 Dose: 2.5 mg Atorvastatin Calcium (Lipitor -) 10 mg PO HS [facility] Last Admin: 05/11/16 22:44 Dose: 10 mg Bacitracin (Bacitracin -) 1 applic TP BID [facility] Last Admin: 05/12/16 11:09 Dose: Not Given Cholecalciferol (Vitamin D3 -) 400 unit PO DAILY [facility] Last Admin: 05/12/16 11:10 Dose: 400 unit Diltiazem HCl (Cardizem Injection -) 10 mg IVPUSH Q6H PRN Last Admin: 04/28/16 13:05 Dose: 10 mg Docusate Sodium (Colace -) 100 mg PO BID [facility] Last Admin: 05/12/16 11:09 Dose: 100 mg Dextrose (D5w -) 1,000 mls @ 42 mls/hr IV ASDIR [facility] Last Admin: 05/12/16 18:49 Dose: 42 mls/hr Levothyroxine Sodium (Synthroid -) 100 mcg PO DAILY@0700 [facility] Last Admin: 05/12/16 06:51 Dose: 100 mcg Lisinopril (Prinivil) 10 mg PO DAILY [facility] Last Admin: 05/12/16 11:10 Dose: 10 mg Metoprolol Tartrate (Lopressor -) 50 mg PO BID [facility] Last Admin: 05/12/16 11:10 Dose: 50 mg Morphine Sulfate (Morphine Injection -) 1 mg IVPUSH Q2H PRN PRN Reason: PAIN Last Admin: 05/09/16 09:59 Dose: 1 mg Nitroglycerin (Nitrostat -) 0.4 mg SL PRN PRN Ondansetron HCl (Zofran Odt -) 4 mg SL Q8H PRN PRN Reason: NAUSEA Last Admin: 04/25/16 09:44 Dose: 4 mg Oxycodone HCl (Roxicodone -) 5 mg PO Q4H PRN PRN Reason: PAIN Last Admin: 05/12/16 15:23 Dose: 5 mg Pantoprazole Sodium (Protonix -) 40 mg PO DAILY [facility] Last Admin: 05/12/16 11:10 Dose: 40 mg Polyethylene Glycol (Miralax (For Daily Use) -) 17 gm PO BID [facility] Last Admin: 05/12/16 11:45 Dose: Not Given Potassium Chloride (K-Dur -) 40 meq PO DAILY [facility] Last Admin: 05/12/16 11:10 Dose: 40 meq Ranitidine HCl (Zantac -) 150 mg PO HS [facility] Last Admin: 05/11/16 22:45 Dose: 150 mg - Objective Vital Signs: Vital Signs Temperature 98.6 F 05/12/16 15:49 Pulse Rate 61 05/12/16 15:49 Respiratory Rate 19 05/12/16 15:49 Blood Pressure 100/54 05/12/16 15:49 O2 Sat by Pulse Oximetry (%) 96 05/12/16 09:00 Constitutional: Yes: Well Nourished, No Distress, Calm Cardiovascular: Yes: Regular Rate and Rhythm. No: Gallop, Murmur, Rub Respiratory: Yes: Regular, CTA Bilaterally. No: Rales, Rhonchi, Wheezes Gastrointestinal: Yes: Normal Bowel Sounds, Soft. No: Distention, Tenderness Extremities: Yes: WNL Edema: No Labs: CBC, BMP 05/12/16 07:00 05/12/16 06:00 INR, PTT INR 1.81 (0.82-1.09) H D 04/29/16 05:45 Problem List - Problems (1) Chest pain Code(s): R07.9 - CHEST PAIN, UNSPECIFIED (2) Pyelonephritis due to Escherichia coli Code(s): N12 - TUBULO-INTERSTITIAL NEPHRITIS, NOT SPCF ACUTE OR CHRONIC B96.20 - UNSP ESCHERICHIA COLI THE CAUSE OF DISEASES CLASSD [facility] (3) Sepsis Code(s): A41.9 - SEPSIS, UNSPECIFIED ORGANISM (4) Right patella fracture Code(s): S82.001A - UNSP FRACTURE OF RIGHT PATELLA, INIT FOR CLOS FX Qualifiers: Encounter type: initial encounter Fracture type: closed Fracture morphology: unspecified fracture morphology Fracture alignment: displaced Qualified Code(s): S82.001A - Unspecified fracture of right patella, initial encounter for closed fracture (5) GERD (gastroesophageal reflux disease) Code(s): K21.9 - GASTRO-ESOPHAGEAL REFLUX DISEASE WITHOUT ESOPHAGITIS Qualifiers: Esophagitis presence: without esophagitis Qualified Code(s): K21.9 - Gastro-esophageal reflux disease without esophagitis (6) Nasal bone fracture Code(s): S02.2XXA - FRACTURE OF NASAL BONES, INIT ENCNTR FOR CLOSED FRACTURE (7) Hypercholesteremia Code(s): E78.0 - PURE HYPERCHOLESTEROLEMIA * DO NOT USE * (8) Hypertension Code(s): I10 - ESSENTIAL (PRIMARY) HYPERTENSION Qualifiers: Hypertension type: essential hypertension Qualified Code(s): I10 - Essential (primary) hypertension (9) Hypothyroid Code(s): E03.9 - HYPOTHYROIDISM, UNSPECIFIED Qualifiers: Hypothyroidism type: unspecified Qualified Code(s): E03.9 - Hypothyroidism, unspecified Assessment/Plan (1) Hydronephrosis -CT scan reviewed -urology evaluated -rascon placed -can discharge to SNF with rascon (2) ESBL pyelonephritis with sepsis -finished course of antibiotics (3) Right patella fracture Assessment/Plan: -s/p surgery -continue pain control -will need SNF placement -continue PT, encouraged patient to walk with PT Code(s): S82.001A - UNSP FRACTURE OF RIGHT PATELLA, INIT FOR CLOS FX Qualifiers: Encounter type: initial encounter Fracture type: closed Fracture morphology: unspecified fracture morphology Fracture alignment: displaced Qualified Code(s): S82.001A - Unspecified fracture of right patella, initial encounter for closed fracture (4) Hypercholesteremia Assessment/Plan: -continue lipitor Code(s): E78.0 - PURE HYPERCHOLESTEROLEMIA * DO NOT USE * (5) Hypertension Assessment/Plan: -continue current management -controlled Code(s): I10 - ESSENTIAL (PRIMARY) HYPERTENSION (6) Hypothyroid Assessment/Plan: -continue synthroid Code(s): E03.9 - HYPOTHYROIDISM, UNSPECIFIED (7) Pleural effusions -stable (8) Atrial fibrillation -currently in sinus rhythm -continue metoprolol and diltiazem -continue eliquis (9) Diarrhea -resolved Dispo -discharge placed -awaiting authorization -transfer to SNF when bed available
[2016-05-12] MEDS: ATORVASTATIN CA 10 MG TABLET (FP) PO SCH (22:19)
[2016-05-12] MEDS: RANITIDINE HCL 150 MG TABLET (FP) PO SCH (22:19)
[2016-05-13] MEDS: LEVOTHYROXINE NA 100 MCG TABLET (FP) PO SCH (06:05)
[2016-05-13] MEDS ORDERED: PT OWN MED DRAWER 7, Y5N ONE ×2 (10:29→12:47)
[2016-05-13] MEDS: DOCUSATE SODIUM 100 MG CAPSULE (FP) PO SCH ×2 (10:33→21:36)
[2016-05-13] MEDS: BACITRACIN 30 GM TUBE TOPICAL OINTMENT TP SCH ×3 (10:33→21:33)
[2016-05-13] MEDS: POTASSIUM CHLORIDE TABS 20 MEQ TABLET.ER (FP) PO SCH (10:34)
[2016-05-13] MEDS: METOPROLOL TARTRATE 50 MG TABLET (FP) PO SCH ×2 (10:36→21:36)
[2016-05-13] MEDS: POLYETHYLENE GLYCOL 3350 119 GM BTL PO SCH ×2 (10:36→21:36)
[2016-05-13] MEDS: CHOLECALCIFEROL (VITAMIN D3) 400 UNIT TABLET (FP) PO SCH (10:37)
[2016-05-13] MEDS: LISINOPRIL 10 MG TABLET (FP) PO SCH (10:37)
[2016-05-13] MEDS: PANTOPRAZOLE 40 MG TABLET (FP) PO SCH (10:37)
[2016-05-13] MEDS: oxyCODONE HCL 5 MG TABLET PO PRN ×2 (10:37→22:36)
--- NOTE | 2016-05-13 11:58 | PN ---
Progress Note (short form) - Note Progress Note: urine clear abd soft Would keep rascon-SD, until more ambulatory Patient may go to rehab with rascon
[2016-05-13] MEDS: APIXABAN 2.5 MG TABLET PO SCH ×2 (12:50→21:36)
--- NOTE | 2016-05-13 13:26 | PN ---
Progress Note, Physician Chief Complaint: Complaints of right knee pain; agrees that rascon catheter has helped abdominal discomfort. History of Present Illness: patient with history of fall and knee fracture continue with a lot of right knee pain. I renewed her pain meds. She had an enormous bladder distention and hydronephrosis now seemingly relieved by rascon cath. Not eating as well but no diarrhea today. Lab noted. - Current Medication List Current Medications: Active Medications Acetaminophen (Tylenol -) 650 mg PO Q6H PRN PRN Reason: PAIN SCALE 6-10 Last Admin: 05/12/16 15:26 Dose: 650 mg Albuterol/Ipratropium (Duoneb -) 1 amp NEB Q6H PRN PRN Reason: SHORTNESS OF BREATH Last Admin: 05/02/16 11:13 Dose: 1 amp Apixaban (Eliquis -) 2.5 mg PO BID [facility] Last Admin: 05/13/16 12:50 Dose: 2.5 mg Atorvastatin Calcium (Lipitor -) 10 mg PO HS [facility] Last Admin: 05/12/16 22:19 Dose: 10 mg Bacitracin (Bacitracin -) 1 applic TP BID [facility] Last Admin: 05/13/16 10:46 Dose: Not Given Cholecalciferol (Vitamin D3 -) 400 unit PO DAILY [facility] Last Admin: 05/13/16 10:37 Dose: 400 unit Diltiazem HCl (Cardizem Injection -) 10 mg IVPUSH Q6H PRN Last Admin: 04/28/16 13:05 Dose: 10 mg Docusate Sodium (Colace -) 100 mg PO BID [facility] Last Admin: 05/13/16 10:33 Dose: 100 mg Dextrose (D5w -) 1,000 mls @ 42 mls/hr IV ASDIR [facility] Last Admin: 05/12/16 18:49 Dose: 42 mls/hr Levothyroxine Sodium (Synthroid -) 100 mcg PO DAILY@0700 [facility] Last Admin: 05/13/16 06:05 Dose: 100 mcg Lisinopril (Prinivil) 10 mg PO DAILY [facility] Last Admin: 05/13/16 10:37 Dose: 10 mg Metoprolol Tartrate (Lopressor -) 50 mg PO BID [facility] Last Admin: 05/13/16 10:36 Dose: 50 mg Morphine Sulfate (Morphine Injection -) 1 mg IVPUSH Q2H PRN PRN Reason: PAIN Last Admin: 05/09/16 09:59 Dose: 1 mg Nitroglycerin (Nitrostat -) 0.4 mg SL PRN PRN Ondansetron HCl (Zofran Odt -) 4 mg SL Q8H PRN PRN Reason: NAUSEA Last Admin: 04/25/16 09:44 Dose: 4 mg Oxycodone HCl (Roxicodone -) 5 mg PO Q4H PRN PRN Reason: PAIN Last Admin: 05/13/16 10:37 Dose: 5 mg Pantoprazole Sodium (Protonix -) 40 mg PO DAILY [facility] Last Admin: 05/13/16 10:37 Dose: 40 mg Polyethylene Glycol (Miralax (For Daily Use) -) 17 gm PO BID [facility] Last Admin: 05/13/16 10:36 Dose: 17 gm Potassium Chloride (K-Dur -) 40 meq PO DAILY [facility] Last Admin: 05/13/16 10:34 Dose: 40 meq Ranitidine HCl (Zantac -) 150 mg PO HS [facility] Last Admin: 05/12/16 22:19 Dose: 150 mg - Objective Vital Signs: Vital Signs Temperature 98 F 05/13/16 08:58 Pulse Rate 69 05/13/16 10:15 Respiratory Rate 20 05/13/16 08:58 Blood Pressure 101/52 05/13/16 08:58 O2 Sat by Pulse Oximetry (%) 98 05/13/16 10:15 Constitutional: Yes: Mild Distress (due to knee pain right side) Eyes: Yes: Conjunctiva Clear Cardiovascular: Yes: Pulse Irregular Respiratory: Yes: Regular Gastrointestinal: Yes: Soft Genitourinary: Yes: Rascon Present Edema: No Peripheral Pulses: Left Radial: 0 Wound/Incision: Yes: Dressing Dry and Intact (right knee) Neurological: Yes: Alert, Oriented Labs: CBC, BMP 05/12/16 07:00 05/12/16 06:00 INR, PTT INR 1.81 (0.82-1.09) H D 04/29/16 05:45 Problem List - Problems (1) Atrial fibrillation Assessment/Plan: on Eliquis Code(s): I48.91 - UNSPECIFIED ATRIAL FIBRILLATION Qualifiers: Atrial fibrillation type: paroxysmal Qualified Code(s): I48.0 - Paroxysmal atrial fibrillation (2) Hydronephrosis Assessment/Plan: With large bladder now better after rascon catheter. Code(s): N13.30 - UNSPECIFIED HYDRONEPHROSIS Qualifiers: Hydronephrosis type: unspecified Qualified Code(s): N13.30 - Unspecified hydronephrosis (3) Right patella fracture Assessment/Plan: Still in a lot of pain but surgical site looks clean and dry. Code(s): S82.001A - UNSP FRACTURE OF RIGHT PATELLA, INIT FOR CLOS FX Qualifiers: Encounter type: initial encounter Fracture type: closed Fracture morphology: unspecified fracture morphology Fracture alignment: displaced Qualified Code(s): S82.001A - Unspecified fracture of right patella, initial encounter for closed fracture (4) Pain of right knee after injury Assessment/Plan: pain Rx renewed. Code(s): M25.561 - PAIN IN RIGHT KNEE
[2016-05-13] MEDS: ATORVASTATIN CA 10 MG TABLET (FP) PO SCH (21:36)
[2016-05-13] MEDS: RANITIDINE HCL 150 MG TABLET (FP) PO SCH (21:37)
[2016-05-13] MEDS: ACETAMINOPHEN 325 MG TABLET (FP) PO PRN (22:38)
[2016-05-14] MEDS: oxyCODONE HCL 5 MG TABLET PO PRN ×3 (05:10→20:08)
[2016-05-14] MEDS: ACETAMINOPHEN 325 MG TABLET (FP) PO PRN ×2 (05:11→20:09)
[2016-05-14] MEDS: LEVOTHYROXINE NA 100 MCG TABLET (FP) PO SCH (06:42)
[2016-05-14 07:37] LABS: EOSINOPHIL 4.7 % (0-4.5); MCH 31.1 pg (25.7-33.7); MEAN CELL VOLUME 91.4 fl (80-96); MEAN PLT VOLUME 8.6 fl (7.5-11.1); NEUTROPHILS 61.8 % (42.8-82.8); PLATELET COUNT 367 K/MM3 (134-434); RDW 14.6 % (11.6-15.6); WHITE BLOOD COUNT 8.2 K/mm3 (4.0-10.0)
[2016-05-14 07:51] LABS: CALCIUM 8.1 mg/dL (8.5-10.1); CREATININE 0.6 mg/dL (0.55-1.02)
[2016-05-14] MEDS: BACITRACIN 30 GM TUBE TOPICAL OINTMENT TP SCH ×2 (10:09→22:00)
[2016-05-14] MEDS: POLYETHYLENE GLYCOL 3350 119 GM BTL PO SCH ×2 (10:15→21:58)
[2016-05-14] MEDS: POTASSIUM CHLORIDE TABS 20 MEQ TABLET.ER (FP) PO SCH (10:15)
[2016-05-14] MEDS: APIXABAN 2.5 MG TABLET PO SCH ×2 (10:15→21:58)
[2016-05-14] MEDS: METOPROLOL TARTRATE 50 MG TABLET (FP) PO SCH ×2 (10:15→21:58)
[2016-05-14] MEDS: DOCUSATE SODIUM 100 MG CAPSULE (FP) PO SCH ×2 (10:15→21:58)
[2016-05-14] MEDS: LISINOPRIL 10 MG TABLET (FP) PO SCH (10:16)
[2016-05-14] MEDS: PANTOPRAZOLE 40 MG TABLET (FP) PO SCH (10:16)
[2016-05-14] MEDS: CHOLECALCIFEROL (VITAMIN D3) 400 UNIT TABLET (FP) PO SCH (10:16)
[2016-05-14] MEDS ORDERED: PT OWN MED DRAWER 7, Y5N ONE (10:23)
--- NOTE | 2016-05-14 13:54 | PN ---
Progress Note, Physician Chief Complaint: Worsened pain right knee and right calf. History of Present Illness: Patient with history of fall and patella fracture had discharge delayed because of hydronephrosis related to massive distention of urinary bladder. Rascon catheter in place. Patient continue to have severe pain in right knee and calf and current pain Rx not covering even 4 hrs. - Current Medication List Current Medications: Active Medications Acetaminophen (Tylenol -) 650 mg PO Q6H PRN PRN Reason: PAIN SCALE 6-10 Last Admin: 05/14/16 05:11 Dose: 650 mg Albuterol/Ipratropium (Duoneb -) 1 amp NEB Q6H PRN PRN Reason: SHORTNESS OF BREATH Last Admin: 05/02/16 11:13 Dose: 1 amp Apixaban (Eliquis -) 2.5 mg PO BID [facility] Last Admin: 05/14/16 10:15 Dose: 2.5 mg Atorvastatin Calcium (Lipitor -) 10 mg PO HS [facility] Last Admin: 05/13/16 21:36 Dose: 10 mg Bacitracin (Bacitracin -) 1 applic TP BID [facility] Last Admin: 05/14/16 10:09 Dose: Not Given Cholecalciferol (Vitamin D3 -) 400 unit PO DAILY [facility] Last Admin: 05/14/16 10:16 Dose: 400 unit Diltiazem HCl (Cardizem Injection -) 10 mg IVPUSH Q6H PRN Last Admin: 04/28/16 13:05 Dose: 10 mg Docusate Sodium (Colace -) 100 mg PO BID [facility] Last Admin: 05/14/16 10:15 Dose: 100 mg Levothyroxine Sodium (Synthroid -) 100 mcg PO DAILY@0700 [facility] Last Admin: 05/14/16 06:42 Dose: 100 mcg Lisinopril (Prinivil) 10 mg PO DAILY [facility] Last Admin: 05/14/16 10:16 Dose: 10 mg Metoprolol Tartrate (Lopressor -) 50 mg PO BID [facility] Last Admin: 05/14/16 10:15 Dose: 50 mg Morphine Sulfate (Morphine Injection -) 1 mg IVPUSH Q2H PRN PRN Reason: PAIN Last Admin: 05/09/16 09:59 Dose: 1 mg Nitroglycerin (Nitrostat -) 0.4 mg SL PRN PRN Nystatin/Triamcinolone Acetonide (Mycolog Ii Cream -) 1 applic TP BID [facility] Ondansetron HCl (Zofran Odt -) 4 mg SL Q8H PRN PRN Reason: NAUSEA Last Admin: 04/25/16 09:44 Dose: 4 mg Oxycodone HCl (Roxicodone -) 7.5 mg PO Q4H PRN PRN Reason: PAIN Pantoprazole Sodium (Protonix -) 40 mg PO DAILY [facility] Last Admin: 05/14/16 10:16 Dose: 40 mg Polyethylene Glycol (Miralax (For Daily Use) -) 17 gm PO BID [facility] Last Admin: 05/14/16 10:15 Dose: 17 gm Potassium Chloride (K-Dur -) 40 meq PO DAILY [facility] Last Admin: 05/14/16 10:15 Dose: 40 meq Ranitidine HCl (Zantac -) 150 mg PO HS [facility] Last Admin: 05/13/16 21:37 Dose: 150 mg - Objective Vital Signs: Vital Signs Temperature 98.0 F 05/14/16 08:52 Pulse Rate 56 L 05/14/16 08:52 Respiratory Rate 20 05/14/16 08:52 Blood Pressure 113/55 05/14/16 08:52 O2 Sat by Pulse Oximetry (%) 98 05/13/16 21:00 Constitutional: Yes: Mild Distress Eyes: Yes: Conjunctiva Clear Cardiovascular: Yes: Pulse Irregular Respiratory: Yes: Diminished Gastrointestinal: Yes: Soft Genitourinary: Yes: Rascon Present Musculoskeletal: Yes: Joint Swelling (slight right knee.) Extremities: Yes: Other (ecchymoses and tenderness in calf below area of patella surgery.) Edema: No Neurological: Yes: Alert Labs: CBC, BMP 05/14/16 06:00 05/14/16 06:00 INR, PTT INR 1.81 (0.82-1.09) H D 04/29/16 05:45 Problem List - Problems (1) Atrial fibrillation Assessment/Plan: On Eliquis Code(s): I48.91 - UNSPECIFIED ATRIAL FIBRILLATION Qualifiers: Atrial fibrillation type: paroxysmal Qualified Code(s): I48.0 - Paroxysmal atrial fibrillation (2) Hydronephrosis Assessment/Plan: Had rascon catheter in place and draining urine well. May need Rascon to remain when she goes to [facility] Code(s): N13.30 - UNSPECIFIED HYDRONEPHROSIS Qualifiers: Hydronephrosis type: unspecified Qualified Code(s): N13.30 - Unspecified hydronephrosis (3) Right patella fracture Assessment/Plan: Still having a lot of pain although the bandage is clean and dry. Code(s): S82.001A - UNSP FRACTURE OF RIGHT PATELLA, INIT FOR CLOS FX Qualifiers: Encounter type: initial encounter Fracture type: closed Fracture morphology: unspecified fracture morphology Fracture alignment: displaced Qualified Code(s): S82.001A - Unspecified fracture of right patella, initial encounter for closed fracture (4) Pain of right knee after injury Code(s): M25.561 - PAIN IN RIGHT KNEE
[2016-05-14] MEDS: ATORVASTATIN CA 10 MG TABLET (FP) PO SCH (21:58)
[2016-05-14] MEDS: RANITIDINE HCL 150 MG TABLET (FP) PO SCH (21:59)
[2016-05-15] MEDS: LEVOTHYROXINE NA 100 MCG TABLET (FP) PO SCH (06:31)
[2016-05-15] MEDS: NYSTATIN/TRIAMCINOLONE TOPICAL CREAM 15 GM TUBE TP SCH ×3 (06:35→21:53)
[2016-05-15] MEDS: ALBUTEROL SO4 2.5/IPRATROPIUM 0.5 INH SOL 3 ML VIAL.NEB. NEB PRN (10:25)
[2016-05-15] MEDS: METOPROLOL TARTRATE 50 MG TABLET (FP) PO SCH ×2 (10:25→21:52)
[2016-05-15] MEDS: CHOLECALCIFEROL (VITAMIN D3) 400 UNIT TABLET (FP) PO SCH (10:25)
[2016-05-15] MEDS: LISINOPRIL 10 MG TABLET (FP) PO SCH (10:26)
[2016-05-15] MEDS: PANTOPRAZOLE 40 MG TABLET (FP) PO SCH (10:26)
[2016-05-15] MEDS: BACITRACIN 30 GM TUBE TOPICAL OINTMENT TP SCH ×2 (10:26→21:52)
[2016-05-15] MEDS: DOCUSATE SODIUM 100 MG CAPSULE (FP) PO SCH ×2 (10:26→22:33)
[2016-05-15] MEDS: POLYETHYLENE GLYCOL 3350 119 GM BTL PO SCH ×2 (10:27→21:52)
[2016-05-15] MEDS: POTASSIUM CHLORIDE TABS 20 MEQ TABLET.ER (FP) PO SCH (10:27)
[2016-05-15] MEDS: APIXABAN 2.5 MG TABLET PO SCH ×2 (10:27→21:52)
--- NOTE | 2016-05-15 11:43 | PN ---
Progress Note, Physician History of Present Illness: Dyspnea and LE edema resolved with diuresis, feels weak. No further chest discomfort. Abd/pelvic CT showed markedly distended bladder, L>R hydronephosis. c/o diarrhea. - Current Medication List Current Medications: Active Medications Acetaminophen (Tylenol -) 650 mg PO Q6H PRN PRN Reason: PAIN SCALE 6-10 Last Admin: 05/14/16 20:09 Dose: 650 mg Albuterol/Ipratropium (Duoneb -) 1 amp NEB Q6H PRN PRN Reason: SHORTNESS OF BREATH Last Admin: 05/15/16 10:25 Dose: 1 amp Apixaban (Eliquis -) 2.5 mg PO BID [facility] Last Admin: 05/15/16 10:27 Dose: 2.5 mg Atorvastatin Calcium (Lipitor -) 10 mg PO HS [facility] Last Admin: 05/14/16 21:58 Dose: 10 mg Bacitracin (Bacitracin -) 1 applic TP BID [facility] Last Admin: 05/15/16 10:26 Dose: 1 applic Cholecalciferol (Vitamin D3 -) 400 unit PO DAILY [facility] Last Admin: 05/15/16 10:25 Dose: 400 unit Diltiazem HCl (Cardizem Injection -) 10 mg IVPUSH Q6H PRN Last Admin: 04/28/16 13:05 Dose: 10 mg Docusate Sodium (Colace -) 100 mg PO BID [facility] Last Admin: 05/15/16 10:26 Dose: 100 mg Levothyroxine Sodium (Synthroid -) 100 mcg PO DAILY@0700 [facility] Last Admin: 05/15/16 06:31 Dose: 100 mcg Lisinopril (Prinivil) 10 mg PO DAILY [facility] Last Admin: 05/15/16 10:26 Dose: 10 mg Metoprolol Tartrate (Lopressor -) 50 mg PO BID [facility] Last Admin: 05/15/16 10:25 Dose: 50 mg Morphine Sulfate (Morphine Injection -) 1 mg IVPUSH Q2H PRN PRN Reason: PAIN Last Admin: 05/09/16 09:59 Dose: 1 mg Nitroglycerin (Nitrostat -) 0.4 mg SL PRN PRN Nystatin/Triamcinolone Acetonide (Mycolog Ii Cream -) 1 applic TP BID [facility] Last Admin: 01/09/17 10:26 Dose: 1 applic Ondansetron HCl (Zofran Odt -) 4 mg SL Q8H PRN PRN Reason: NAUSEA Last Admin: 04/25/16 09:44 Dose: 4 mg Oxycodone HCl (Roxicodone -) 7.5 mg PO Q4H PRN PRN Reason: PAIN Last Admin: 05/14/16 20:08 Dose: 7.5 mg Pantoprazole Sodium (Protonix -) 40 mg PO DAILY [facility] Last Admin: 05/15/16 10:26 Dose: 40 mg Polyethylene Glycol (Miralax (For Daily Use) -) 17 gm PO BID [facility] Last Admin: 05/15/16 10:27 Dose: 17 gm Potassium Chloride (K-Dur -) 40 meq PO DAILY [facility] Last Admin: 05/15/16 10:27 Dose: 40 meq Ranitidine HCl (Zantac -) 150 mg PO HS [facility] Last Admin: 05/14/16 21:59 Dose: 150 mg - Objective Vital Signs: Vital Signs Temperature 98.5 F 05/15/16 08:16 Pulse Rate 99 H 05/15/16 10:24 Respiratory Rate 20 05/15/16 08:16 Blood Pressure 121/57 05/15/16 08:16 O2 Sat by Pulse Oximetry (%) 98 05/15/16 10:24 Labs: CBC, BMP 05/14/16 06:00 05/14/16 06:00 INR, PTT INR 1.81 (0.82-1.09) H D 04/29/16 05:45 Problem List - Problems (1) Right patella fracture Code(s): S82.001A - UNSP FRACTURE OF RIGHT PATELLA, INIT FOR CLOS FX Qualifiers: Encounter type: initial encounter Fracture type: closed Fracture morphology: unspecified fracture morphology Fracture alignment: displaced Qualified Code(s): S82.001A - Unspecified fracture of right patella, initial encounter for closed fracture (2) Hypercholesteremia Code(s): E78.0 - PURE HYPERCHOLESTEROLEMIA * DO NOT USE * (3) Hypertension Code(s): I10 - ESSENTIAL (PRIMARY) HYPERTENSION Qualifiers: Hypertension type: essential hypertension Qualified Code(s): I10 - Essential (primary) hypertension (4) Hypothyroid Code(s): E03.9 - HYPOTHYROIDISM, UNSPECIFIED Qualifiers: Hypothyroidism type: unspecified Qualified Code(s): E03.9 - Hypothyroidism, unspecified (5) History of stroke Code(s): Z86.73 - PRSNL HX OF TIA (TIA), AND CEREB INFRC W/O RESID DEFICITS (6) Atrial fibrillation Code(s): I48.91 - UNSPECIFIED ATRIAL FIBRILLATION Qualifiers: Atrial fibrillation type: paroxysmal Qualified Code(s): I48.0 - Paroxysmal atrial fibrillation (7) Diastolic CHF, acute on chronic Code(s): I50.33 - ACUTE ON CHRONIC DIASTOLIC (CONGESTIVE) HEART FAILURE (8) Pleural effusion due to CHF (congestive heart failure) Code(s): I50.9 - HEART FAILURE, UNSPECIFIED (9) Pyelonephritis due to Escherichia coli Code(s): N12 - TUBULO-INTERSTITIAL NEPHRITIS, NOT SPCF ACUTE OR CHRONIC B96.20 - UNSP ESCHERICHIA COLI THE CAUSE OF DISEASES CLASSD ELSWHR (10) Leukocytosis Code(s): D72.829 - ELEVATED WHITE BLOOD CELL COUNT, UNSPECIFIED (11) Hydronephrosis Code(s): N13.30 - UNSPECIFIED HYDRONEPHROSIS Qualifiers: Hydronephrosis type: unspecified Qualified Code(s): N13.30 - Unspecified hydronephrosis Assessment/Plan 1. Patella fracture secondary to mechanical fall post ORIF 2. 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 MVP 5. HTN/HCVD 6. Hyperlipidemia 7. Hypothyroidism 8. History of GERD/esophageal spasm 9. Paroxysmal atrial fibrillation in sinus rhythm 10. Acute on CKD 11. Leukocytosis - left pyelonephritis completed abx course 12. Mild-moderate left hydronephrosis with markedly distended bladder 13. Diarrhea r/o c. diff PLAN: 1. Continue Lopressor 50 mg BID, Lisinopril 10 mg QD and Lipitor 10 mg QHS 2. Continue Eliquis 2.5 mg BID 3. DVT and GI prophylaxis, urology input appreciated, check c. diff toxin 4. PT and eventually rehab. Encourage PO intake
--- NOTE | 2016-05-15 11:51 | PN ---
Progress Note, Physician History of Present Illness: Feels debilitated. - Current Medication List Current Medications: Active Medications Acetaminophen (Tylenol -) 650 mg PO Q6H PRN PRN Reason: PAIN SCALE 6-10 Last Admin: 05/14/16 20:09 Dose: 650 mg Albuterol/Ipratropium (Duoneb -) 1 amp NEB Q6H PRN PRN Reason: SHORTNESS OF BREATH Last Admin: 05/15/16 10:25 Dose: 1 amp Apixaban (Eliquis -) 2.5 mg PO BID [facility] Last Admin: 05/15/16 10:27 Dose: 2.5 mg Atorvastatin Calcium (Lipitor -) 10 mg PO HS [facility] Last Admin: 05/14/16 21:58 Dose: 10 mg Bacitracin (Bacitracin -) 1 applic TP BID [facility] Last Admin: 05/15/16 10:26 Dose: 1 applic Cholecalciferol (Vitamin D3 -) 400 unit PO DAILY [facility] Last Admin: 05/15/16 10:25 Dose: 400 unit Diltiazem HCl (Cardizem Injection -) 10 mg IVPUSH Q6H PRN Last Admin: 04/28/16 13:05 Dose: 10 mg Docusate Sodium (Colace -) 100 mg PO BID [facility] Last Admin: 05/15/16 10:26 Dose: 100 mg Levothyroxine Sodium (Synthroid -) 100 mcg PO DAILY@0700 [facility] Last Admin: 05/15/16 06:31 Dose: 100 mcg Lisinopril (Prinivil) 10 mg PO DAILY [facility] Last Admin: 05/15/16 10:26 Dose: 10 mg Metoprolol Tartrate (Lopressor -) 50 mg PO BID [facility] Last Admin: 05/15/16 10:25 Dose: 50 mg Morphine Sulfate (Morphine Injection -) 1 mg IVPUSH Q2H PRN PRN Reason: PAIN Last Admin: 05/09/16 09:59 Dose: 1 mg Nitroglycerin (Nitrostat -) 0.4 mg SL PRN PRN Nystatin/Triamcinolone Acetonide (Mycolog Ii Cream -) 1 applic TP BID [facility] Last Admin: 05/15/16 10:26 Dose: 1 applic Ondansetron HCl (Zofran Odt -) 4 mg SL Q8H PRN PRN Reason: NAUSEA Last Admin: 04/25/16 09:44 Dose: 4 mg Oxycodone HCl (Roxicodone -) 7.5 mg PO Q4H PRN PRN Reason: PAIN Last Admin: 05/14/16 20:08 Dose: 7.5 mg Pantoprazole Sodium (Protonix -) 40 mg PO DAILY [facility] Last Admin: 05/15/16 10:26 Dose: 40 mg Polyethylene Glycol (Miralax (For Daily Use) -) 17 gm PO BID [facility] Last Admin: 05/15/16 10:27 Dose: 17 gm Potassium Chloride (K-Dur -) 40 meq PO DAILY [facility] Last Admin: 05/15/16 10:27 Dose: 40 meq Ranitidine HCl (Zantac -) 150 mg PO HS [facility] Last Admin: 05/14/16 21:59 Dose: 150 mg - Objective Vital Signs: Vital Signs Temperature 98.5 F 05/15/16 08:16 Pulse Rate 99 H 05/15/16 10:24 Respiratory Rate 20 05/15/16 08:16 Blood Pressure 121/57 05/15/16 08:16 O2 Sat by Pulse Oximetry (%) 98 05/15/16 10:24 Constitutional: Yes: No Distress, Calm Neck: Yes: Supple Cardiovascular: Yes: Regular Rate and Rhythm Respiratory: Yes: Regular, Diminished Gastrointestinal: Yes: Normal Bowel Sounds, Soft Edema: No Labs: CBC, BMP 05/14/16 06:00 05/14/16 06:00 INR, PTT INR 1.81 (0.82-1.09) H D 04/29/16 05:45 Problem List - Problems (1) Right patella fracture Code(s): S82.001A - UNSP FRACTURE OF RIGHT PATELLA, INIT FOR CLOS FX Qualifiers: Encounter type: initial encounter Fracture type: closed Fracture morphology: unspecified fracture morphology Fracture alignment: displaced Qualified Code(s): S82.001A - Unspecified fracture of right patella, initial encounter for closed fracture (2) Hypercholesteremia Code(s): E78.0 - PURE HYPERCHOLESTEROLEMIA * DO NOT USE * (3) Hypertension Code(s): I10 - ESSENTIAL (PRIMARY) HYPERTENSION Qualifiers: Hypertension type: essential hypertension Qualified Code(s): I10 - Essential (primary) hypertension (4) Hypothyroid Code(s): E03.9 - HYPOTHYROIDISM, UNSPECIFIED Qualifiers: Hypothyroidism type: unspecified Qualified Code(s): E03.9 - Hypothyroidism, unspecified (5) History of stroke Code(s): Z86.73 - PRSNL HX OF TIA (TIA), AND CEREB INFRC W/O RESID DEFICITS (6) Atrial fibrillation Code(s): I48.91 - UNSPECIFIED ATRIAL FIBRILLATION Qualifiers: Atrial fibrillation type: paroxysmal Qualified Code(s): I48.0 - Paroxysmal atrial fibrillation (7) Diastolic CHF, acute on chronic Code(s): I50.33 - ACUTE ON CHRONIC DIASTOLIC (CONGESTIVE) HEART FAILURE (8) Pleural effusion due to CHF (congestive heart failure) Code(s): I50.9 - HEART FAILURE, UNSPECIFIED (9) Pyelonephritis due to Escherichia coli Code(s): N12 - TUBULO-INTERSTITIAL NEPHRITIS, NOT SPCF ACUTE OR CHRONIC B96.20 - UNSP ESCHERICHIA COLI THE CAUSE OF DISEASES CLASSD ELSWHR (10) Leukocytosis Code(s): D72.829 - ELEVATED WHITE BLOOD CELL COUNT, UNSPECIFIED (11) Hydronephrosis Code(s): N13.30 - UNSPECIFIED HYDRONEPHROSIS Qualifiers: Hydronephrosis type: unspecified Qualified Code(s): N13.30 - Unspecified hydronephrosis Assessment/Plan 1. Patella fracture secondary to mechanical fall post ORIF 2. 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 History of right posterior cerebral artery stroke 4. MVP 5. HTN/HCVD 6. Hyperlipidemia 7. Hypothyroidism 8. History of GERD/esophageal spasm 9. Paroxysmal atrial fibrillation in sinus rhythm 10. Acute on CKD resolved 11. Leukocytosis - left pyelonephritis completed abx course 12. Mild-moderate left hydronephrosis with markedly distended bladder referable to overflow incontinence post rascon drainage PLAN: 1. Continue Lopressor 50 mg BID, Lisinopril 10 mg QD and Lipitor 10 mg QHS 2. Continue Eliquis 2.5 mg BID 3. DVT and GI prophylaxis 4. PT and eventually rehab
--- NOTE | 2016-05-15 17:20 | PN ---
Progress Note, Physician Chief Complaint: Ms Mei complains of knee pain but otherwise says she is doing well. No cp, sob, n/v. - Current Medication List Current Medications: Active Medications Acetaminophen (Tylenol -) 650 mg PO Q6H PRN PRN Reason: PAIN SCALE 6-10 Last Admin: 05/14/16 20:09 Dose: 650 mg Albuterol/Ipratropium (Duoneb -) 1 amp NEB Q6H PRN PRN Reason: SHORTNESS OF BREATH Last Admin: 05/15/16 10:25 Dose: 1 amp Apixaban (Eliquis -) 2.5 mg PO BID [facility] Last Admin: 05/15/16 10:27 Dose: 2.5 mg Atorvastatin Calcium (Lipitor -) 10 mg PO HS [facility] Last Admin: 05/14/16 21:58 Dose: 10 mg Bacitracin (Bacitracin -) 1 applic TP BID [facility] Last Admin: 05/15/16 10:26 Dose: 1 applic Cholecalciferol (Vitamin D3 -) 400 unit PO DAILY [facility] Last Admin: 05/15/16 10:25 Dose: 400 unit Diltiazem HCl (Cardizem Injection -) 10 mg IVPUSH Q6H PRN Last Admin: 04/28/16 13:05 Dose: 10 mg Docusate Sodium (Colace -) 100 mg PO BID [facility] Last Admin: 05/15/16 10:26 Dose: 100 mg Levothyroxine Sodium (Synthroid -) 100 mcg PO DAILY@0700 [facility] Last Admin: 05/15/16 06:31 Dose: 100 mcg Lisinopril (Prinivil) 10 mg PO DAILY [facility] Last Admin: 05/15/16 10:26 Dose: 10 mg Metoprolol Tartrate (Lopressor -) 50 mg PO BID [facility] Last Admin: 05/15/16 10:25 Dose: 50 mg Morphine Sulfate (Morphine Injection -) 1 mg IVPUSH Q2H PRN PRN Reason: PAIN Last Admin: 05/09/16 09:59 Dose: 1 mg Nitroglycerin (Nitrostat -) 0.4 mg SL PRN PRN Nystatin/Triamcinolone Acetonide (Mycolog Ii Cream -) 1 applic TP BID [facility] Last Admin: 05/15/16 10:26 Dose: 1 applic Ondansetron HCl (Zofran Odt -) 4 mg SL Q8H PRN PRN Reason: NAUSEA Last Admin: 04/25/16 09:44 Dose: 4 mg Oxycodone HCl (Roxicodone -) 7.5 mg PO Q4H PRN PRN Reason: PAIN Last Admin: 05/14/16 20:08 Dose: 7.5 mg Pantoprazole Sodium (Protonix -) 40 mg PO DAILY [facility] Last Admin: 05/15/16 10:26 Dose: 40 mg Polyethylene Glycol (Miralax (For Daily Use) -) 17 gm PO BID [facility] Last Admin: 05/15/16 10:27 Dose: 17 gm Potassium Chloride (K-Dur -) 40 meq PO DAILY [facility] Last Admin: 05/15/16 10:27 Dose: 40 meq Ranitidine HCl (Zantac -) 150 mg PO HS [facility] Last Admin: 05/14/16 21:59 Dose: 150 mg - Objective Vital Signs: Vital Signs Temperature 98.6 F 05/15/16 14:56 Pulse Rate 90 05/15/16 14:56 Respiratory Rate 16 05/15/16 14:56 Blood Pressure 115/80 05/15/16 14:56 O2 Sat by Pulse Oximetry (%) 98 05/15/16 10:24 Constitutional: Yes: Well Nourished, No Distress, Calm Cardiovascular: Yes: Regular Rate and Rhythm. No: Gallop, Murmur, Rub Respiratory: Yes: Regular, CTA Bilaterally. No: Rales, Rhonchi, Wheezes Gastrointestinal: Yes: Normal Bowel Sounds, Soft. No: Distention, Tenderness Extremities: Yes: WNL Edema: No Labs: CBC, BMP 05/14/16 06:00 05/14/16 06:00 INR, PTT INR 1.81 (0.82-1.09) H D 04/29/16 05:45 Problem List - Problems (1) Chest pain Code(s): R07.9 - CHEST PAIN, UNSPECIFIED (2) Pyelonephritis due to Escherichia coli Code(s): N12 - TUBULO-INTERSTITIAL NEPHRITIS, NOT SPCF ACUTE OR CHRONIC B96.20 - UNSP ESCHERICHIA COLI THE CAUSE OF DISEASES CLASSD ELSR (3) Sepsis Code(s): A41.9 - SEPSIS, UNSPECIFIED ORGANISM (4) Right patella fracture Code(s): S82.001A - UNSP FRACTURE OF RIGHT PATELLA, INIT FOR CLOS FX Qualifiers: Encounter type: initial encounter Fracture type: closed Fracture morphology: unspecified fracture morphology Fracture alignment: displaced Qualified Code(s): S82.001A - Unspecified fracture of right patella, initial encounter for closed fracture (5) GERD (gastroesophageal reflux disease) Code(s): K21.9 - GASTRO-ESOPHAGEAL REFLUX DISEASE WITHOUT ESOPHAGITIS Qualifiers: Esophagitis presence: without esophagitis Qualified Code(s): K21.9 - Gastro-esophageal reflux disease without esophagitis (6) Nasal bone fracture Code(s): S02.2XXA - FRACTURE OF NASAL BONES, INIT ENCNTR FOR CLOSED FRACTURE (7) Hypercholesteremia Code(s): E78.0 - PURE HYPERCHOLESTEROLEMIA * DO NOT USE * (8) Hypertension Code(s): I10 - ESSENTIAL (PRIMARY) HYPERTENSION Qualifiers: Hypertension type: essential hypertension Qualified Code(s): I10 - Essential (primary) hypertension (9) Hypothyroid Code(s): E03.9 - HYPOTHYROIDISM, UNSPECIFIED Qualifiers: Hypothyroidism type: unspecified Qualified Code(s): E03.9 - Hypothyroidism, unspecified Assessment/Plan (1) Hydronephrosis -d/c with rascon -outpatient follow up with urology (2) ESBL pyelonephritis with sepsis -finished course of antibiotics (3) Right patella fracture Assessment/Plan: -awaiting SNF placement Code(s): S82.001A - UNSP FRACTURE OF RIGHT PATELLA, INIT FOR CLOS FX Qualifiers: Encounter type: initial encounter Fracture type: closed Fracture morphology: unspecified fracture morphology Fracture alignment: displaced Qualified Code(s): S82.001A - Unspecified fracture of right patella, initial encounter for closed fracture (4) Hypercholesteremia Assessment/Plan: -continue lipitor Code(s): E78.0 - PURE HYPERCHOLESTEROLEMIA * DO NOT USE * (5) Hypertension Assessment/Plan: -continue current management -controlled Code(s): I10 - ESSENTIAL (PRIMARY) HYPERTENSION (6) Hypothyroid Assessment/Plan: -continue synthroid Code(s): E03.9 - HYPOTHYROIDISM, UNSPECIFIED (7) Pleural effusions -stable (8) Atrial fibrillation -currently in sinus rhythm -continue metoprolol and diltiazem -continue eliquis (9) Diarrhea -resolved Dispo -awaiting authorization -transfer to SNF when bed available
[2016-05-15] MEDS: oxyCODONE HCL 5 MG TABLET PO PRN (18:56)
[2016-05-15] MEDS ORDERED: PT OWN MED DRAWER 7, Y5N ONE (19:54)
[2016-05-15] MEDS: RANITIDINE HCL 150 MG TABLET (FP) PO SCH (21:52)
[2016-05-15] MEDS: ATORVASTATIN CA 10 MG TABLET (FP) PO SCH (21:52)
[2016-05-16] MEDS: LEVOTHYROXINE NA 100 MCG TABLET (FP) PO SCH (06:33)
[2016-05-16] MEDS ORDERED: PT OWN MED DRAWER 7, Y5N ONE (10:03)
[2016-05-16] MEDS: METOPROLOL TARTRATE 50 MG TABLET (FP) PO SCH (10:16)
[2016-05-16] MEDS: PANTOPRAZOLE 40 MG TABLET (FP) PO SCH (10:16)
[2016-05-16] MEDS: LISINOPRIL 10 MG TABLET (FP) PO SCH (10:16)
[2016-05-16] MEDS: DOCUSATE SODIUM 100 MG CAPSULE (FP) PO SCH (10:16)
[2016-05-16] MEDS: CHOLECALCIFEROL (VITAMIN D3) 400 UNIT TABLET (FP) PO SCH (10:16)
[2016-05-16] MEDS: POTASSIUM CHLORIDE TABS 20 MEQ TABLET.ER (FP) PO SCH (10:16)
[2016-05-16] MEDS: APIXABAN 2.5 MG TABLET PO SCH (10:16)
[2016-05-16] MEDS: BACITRACIN 30 GM TUBE TOPICAL OINTMENT TP SCH (10:19)
[2016-05-16] MEDS: NYSTATIN/TRIAMCINOLONE TOPICAL CREAM 15 GM TUBE TP SCH (10:21)
[2016-05-16] MEDS: POLYETHYLENE GLYCOL 3350 119 GM BTL PO SCH (10:22)
--- NOTE | 2016-05-16 12:04 | PN ---
Progress Note, Physician Chief Complaint: Events noted Weakness Otherwise not in distress History of Present Illness: Patient was seen and examined. Awake and alert. Chart was reviewed Denied chest pain. Denies shortness of breath Generalized weakness - Current Medication List Current Medications: Active Medications Acetaminophen (Tylenol -) 650 mg PO Q6H PRN PRN Reason: PAIN SCALE 6-10 Last Admin: 05/14/16 20:09 Dose: 650 mg Albuterol/Ipratropium (Duoneb -) 1 amp NEB Q6H PRN PRN Reason: SHORTNESS OF BREATH Last Admin: 05/15/16 10:25 Dose: 1 amp Apixaban (Eliquis -) 2.5 mg PO BID [facility] Last Admin: 05/16/16 10:16 Dose: 2.5 mg Atorvastatin Calcium (Lipitor -) 10 mg PO HS [facility] Last Admin: 05/15/16 21:52 Dose: 10 mg Bacitracin (Bacitracin -) 1 applic TP BID [facility] Last Admin: 05/16/16 10:19 Dose: 1 applic Cholecalciferol (Vitamin D3 -) 400 unit PO DAILY [facility] Last Admin: 05/16/16 10:16 Dose: 400 unit Diltiazem HCl (Cardizem Injection -) 10 mg IVPUSH Q6H PRN Last Admin: 04/28/16 13:05 Dose: 10 mg Docusate Sodium (Colace -) 100 mg PO BID [facility] Last Admin: 05/16/16 10:16 Dose: 100 mg Levothyroxine Sodium (Synthroid -) 100 mcg PO DAILY@0700 [facility] Last Admin: 05/16/16 06:33 Dose: 100 mcg Lisinopril (Prinivil) 10 mg PO DAILY [facility] Last Admin: 05/16/16 10:16 Dose: 10 mg Metoprolol Tartrate (Lopressor -) 50 mg PO BID [facility] Last Admin: 05/16/16 10:16 Dose: 50 mg Morphine Sulfate (Morphine Injection -) 1 mg IVPUSH Q2H PRN PRN Reason: PAIN Last Admin: 05/09/16 09:59 Dose: 1 mg Nitroglycerin (Nitrostat -) 0.4 mg SL PRN PRN Nystatin/Triamcinolone Acetonide (Mycolog Ii Cream -) 1 applic TP BID [facility] Last Admin: 05/16/16 10:21 Dose: 1 applic Ondansetron HCl (Zofran Odt -) 4 mg SL Q8H PRN PRN Reason: NAUSEA Last Admin: 04/25/16 09:44 Dose: 4 mg Oxycodone HCl (Roxicodone -) 7.5 mg PO Q4H PRN PRN Reason: PAIN Last Admin: 05/15/16 18:56 Dose: 7.5 mg Pantoprazole Sodium (Protonix -) 40 mg PO DAILY [facility] Last Admin: 05/16/16 10:16 Dose: 40 mg Polyethylene Glycol (Miralax (For Daily Use) -) 17 gm PO BID [facility] Last Admin: 05/16/16 10:22 Dose: Not Given Potassium Chloride (K-Dur -) 40 meq PO DAILY [facility] Last Admin: 05/16/16 10:16 Dose: 40 meq Ranitidine HCl (Zantac -) 150 mg PO HS [facility] Last Admin: 05/15/16 21:52 Dose: 150 mg - Objective Vital Signs: Vital Signs Temperature 98.2 F 05/16/16 10:00 Pulse Rate 70 05/16/16 10:00 Respiratory Rate 18 05/16/16 10:00 Blood Pressure 108/68 05/16/16 10:00 O2 Sat by Pulse Oximetry (%) 98 05/16/16 09:45 Neck: Yes: Tenderness Cardiovascular: Yes: Regular Rate and Rhythm, S1, S2 Respiratory: Yes: CTA Bilaterally Gastrointestinal: Yes: Normal Bowel Sounds, Soft. No: Tenderness Musculoskeletal: Yes: Joint Stiffness Edema: No Problem List - Problems (1) Nasal bone fracture Code(s): S02.2XXA - FRACTURE OF NASAL BONES, INIT ENCNTR FOR CLOSED FRACTURE (2) Right patella fracture Code(s): S82.001A - UNSP FRACTURE OF RIGHT PATELLA, INIT FOR CLOS FX Qualifiers: Encounter type: initial encounter Fracture type: closed Fracture morphology: unspecified fracture morphology Fracture alignment: displaced Qualified Code(s): S82.001A - Unspecified fracture of right patella, initial encounter for closed fracture (3) GERD (gastroesophageal reflux disease) Code(s): K21.9 - GASTRO-ESOPHAGEAL REFLUX DISEASE WITHOUT ESOPHAGITIS Qualifiers: Esophagitis presence: without esophagitis Qualified Code(s): K21.9 - Gastro-esophageal reflux disease without esophagitis (4) Hypercholesteremia Code(s): E78.0 - PURE HYPERCHOLESTEROLEMIA * DO NOT USE * (5) Hypertension Code(s): I10 - ESSENTIAL (PRIMARY) HYPERTENSION Qualifiers: Hypertension type: essential hypertension Qualified Code(s): I10 - Essential (primary) hypertension (6) Hypothyroid Code(s): E03.9 - HYPOTHYROIDISM, UNSPECIFIED Qualifiers: Hypothyroidism type: unspecified Qualified Code(s): E03.9 - Hypothyroidism, unspecified (7) Atrial fibrillation Code(s): I48.91 - UNSPECIFIED ATRIAL FIBRILLATION Qualifiers: Atrial fibrillation type: paroxysmal Qualified Code(s): I48.0 - Paroxysmal atrial fibrillation Assessment/Plan 1. Patella fracture secondary to mechanical fall post ORIF 2. 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 MVP 5. HTN/HCVD 6. Hyperlipidemia 7. Hypothyroidism 8. History of GERD/esophageal spasm 9. Paroxysmal atrial fibrillation in sinus rhythm 10. Acute on CKD 11. Leukocytosis - left pyelonephritis - resolved 12. Mild-moderate left hydronephrosis PLAN: 1. Continue Lopressor 50 mg BID, Lisinopril 10 mg QD and Lipitor 10 mg QHS 2. Continue Eliquis 2.5 mg BID 3. DVT and GI prophylaxis 5. Rehab Discharge planning Shakir Cheney MD
--- NOTE | 2016-05-16 12:20 | PN ---
Progress Note, Physician Chief Complaint: Ms Mei still has knee pain but controlled. No cp, sob, n/v. - Current Medication List Current Medications: Active Medications Acetaminophen (Tylenol -) 650 mg PO Q6H PRN PRN Reason: PAIN SCALE 6-10 Last Admin: 05/14/16 20:09 Dose: 650 mg Albuterol/Ipratropium (Duoneb -) 1 amp NEB Q6H PRN PRN Reason: SHORTNESS OF BREATH Last Admin: 05/15/16 10:25 Dose: 1 amp Apixaban (Eliquis -) 2.5 mg PO BID [facility] Last Admin: 05/16/16 10:16 Dose: 2.5 mg Atorvastatin Calcium (Lipitor -) 10 mg PO HS [facility] Last Admin: 05/15/16 21:52 Dose: 10 mg Bacitracin (Bacitracin -) 1 applic TP BID [facility] Last Admin: 05/16/16 10:19 Dose: 1 applic Cholecalciferol (Vitamin D3 -) 400 unit PO DAILY [facility] Last Admin: 05/16/16 10:16 Dose: 400 unit Diltiazem HCl (Cardizem Injection -) 10 mg IVPUSH Q6H PRN Last Admin: 04/28/16 13:05 Dose: 10 mg Docusate Sodium (Colace -) 100 mg PO BID [facility] Last Admin: 05/16/16 10:16 Dose: 100 mg Levothyroxine Sodium (Synthroid -) 100 mcg PO DAILY@0700 [facility] Last Admin: 05/16/16 06:33 Dose: 100 mcg Lisinopril (Prinivil) 10 mg PO DAILY [facility] Last Admin: 05/16/16 10:16 Dose: 10 mg Metoprolol Tartrate (Lopressor -) 50 mg PO BID [facility] Last Admin: 05/16/16 10:16 Dose: 50 mg Morphine Sulfate (Morphine Injection -) 1 mg IVPUSH Q2H PRN PRN Reason: PAIN Last Admin: 05/09/16 09:59 Dose: 1 mg Nitroglycerin (Nitrostat -) 0.4 mg SL PRN PRN Nystatin/Triamcinolone Acetonide (Mycolog Ii Cream -) 1 applic TP BID [facility] Last Admin: 05/16/16 10:21 Dose: 1 applic Ondansetron HCl (Zofran Odt -) 4 mg SL Q8H PRN PRN Reason: NAUSEA Last Admin: 04/25/16 09:44 Dose: 4 mg Oxycodone HCl (Roxicodone -) 7.5 mg PO Q4H PRN PRN Reason: PAIN Last Admin: 05/15/16 18:56 Dose: 7.5 mg Pantoprazole Sodium (Protonix -) 40 mg PO DAILY [facility] Last Admin: 05/16/16 10:16 Dose: 40 mg Polyethylene Glycol (Miralax (For Daily Use) -) 17 gm PO BID [facility] Last Admin: 05/16/16 10:22 Dose: Not Given Potassium Chloride (K-Dur -) 40 meq PO DAILY [facility] Last Admin: 05/16/16 10:16 Dose: 40 meq Ranitidine HCl (Zantac -) 150 mg PO HS [facility] Last Admin: 05/15/16 21:52 Dose: 150 mg - Objective Vital Signs: Vital Signs Temperature 98.2 F 05/16/16 10:00 Pulse Rate 70 05/16/16 10:00 Respiratory Rate 18 05/16/16 10:00 Blood Pressure 108/68 05/16/16 10:00 O2 Sat by Pulse Oximetry (%) 98 05/16/16 09:45 Constitutional: Yes: Well Nourished, No Distress, Calm Cardiovascular: Yes: Regular Rate and Rhythm. No: Gallop, Murmur, Rub Respiratory: Yes: Regular, CTA Bilaterally. No: Rales, Rhonchi, Wheezes Gastrointestinal: Yes: Normal Bowel Sounds, Soft. No: Distention, Tenderness Extremities: Yes: WNL Edema: No Labs: CBC, BMP 05/14/16 06:00 05/14/16 06:00 INR, PTT INR 1.81 (0.82-1.09) H D 04/29/16 05:45 Problem List - Problems (1) Chest pain Code(s): R07.9 - CHEST PAIN, UNSPECIFIED (2) Pyelonephritis due to Escherichia coli Code(s): N12 - TUBULO-INTERSTITIAL NEPHRITIS, NOT SPCF ACUTE OR CHRONIC B96.20 - UNSP ESCHERICHIA COLI THE CAUSE OF DISEASES CLASSD ELSR (3) Sepsis Code(s): A41.9 - SEPSIS, UNSPECIFIED ORGANISM (4) Right patella fracture Code(s): S82.001A - UNSP FRACTURE OF RIGHT PATELLA, INIT FOR CLOS FX Qualifiers: Encounter type: initial encounter Fracture type: closed Fracture morphology: unspecified fracture morphology Fracture alignment: displaced Qualified Code(s): S82.001A - Unspecified fracture of right patella, initial encounter for closed fracture (5) GERD (gastroesophageal reflux disease) Code(s): K21.9 - GASTRO-ESOPHAGEAL REFLUX DISEASE WITHOUT ESOPHAGITIS Qualifiers: Esophagitis presence: without esophagitis Qualified Code(s): K21.9 - Gastro-esophageal reflux disease without esophagitis (6) Nasal bone fracture Code(s): S02.2XXA - FRACTURE OF NASAL BONES, INIT ENCNTR FOR CLOSED FRACTURE (7) Hypercholesteremia Code(s): E78.0 - PURE HYPERCHOLESTEROLEMIA * DO NOT USE * (8) Hypertension Code(s): I10 - ESSENTIAL (PRIMARY) HYPERTENSION Qualifiers: Hypertension type: essential hypertension Qualified Code(s): I10 - Essential (primary) hypertension (9) Hypothyroid Code(s): E03.9 - HYPOTHYROIDISM, UNSPECIFIED Qualifiers: Hypothyroidism type: unspecified Qualified Code(s): E03.9 - Hypothyroidism, unspecified Assessment/Plan (1) Hydronephrosis -d/c with rascon -outpatient follow up with urology (2) ESBL pyelonephritis with sepsis -finished course of antibiotics (3) Right patella fracture Assessment/Plan: -awaiting SNF placement Code(s): S82.001A - UNSP FRACTURE OF RIGHT PATELLA, INIT FOR CLOS FX Qualifiers: Encounter type: initial encounter Fracture type: closed Fracture morphology: unspecified fracture morphology Fracture alignment: displaced Qualified Code(s): S82.001A - Unspecified fracture of right patella, initial encounter for closed fracture (4) Hypercholesteremia Assessment/Plan: -continue lipitor Code(s): E78.0 - PURE HYPERCHOLESTEROLEMIA * DO NOT USE * (5) Hypertension Assessment/Plan: -continue current management -controlled Code(s): I10 - ESSENTIAL (PRIMARY) HYPERTENSION (6) Hypothyroid Assessment/Plan: -continue synthroid Code(s): E03.9 - HYPOTHYROIDISM, UNSPECIFIED (7) Pleural effusions -stable (8) Atrial fibrillation -currently in sinus rhythm -continue metoprolol and diltiazem -continue eliquis (9) Diarrhea -resolved Dispo -awaiting authorization -transfer to SNF when bed available
--- NOTE | 2016-05-16 13:52 | DS ---
Physical Examination Vital Signs: Vital Signs Temperature 98.2 F 05/16/16 10:00 Pulse Rate 70 05/16/16 10:00 Respiratory Rate 18 05/16/16 10:00 Blood Pressure 108/68 05/16/16 10:00 O2 Sat by Pulse Oximetry (%) 98 05/16/16 09:45 Labs: CBC, BMP 05/14/16 06:00 05/14/16 06:00 Discharge Summary Reason For Visit: RIGHT PATELLA FRACTURE Current Active Problems Atrial fibrillation (Acute) Diastolic CHF, acute on chronic (Acute) History of stroke (Acute) Hydronephrosis (Acute) Leukocytosis (Acute) Nasal bone fracture (Acute) Pain of right knee after injury (Acute) Pleural effusion due to CHF (congestive heart failure) (Acute) Pre-operative cardiovascular examination (Acute) Pyelonephritis due to Escherichia coli (Acute) Right patella fracture (Acute) Sepsis (Acute) Condition: Stable - Instructions Diet, Activity, Other Instructions: regular diet. Up with assistance, further activity per PT. Discharge with rascon in place Referrals: Alfredo Fan MD [Primary Care Provider] - Guzman Vasques MD [Staff Physician] - Lester Spear MD [Staff Physician] - Jai Robins MD [Staff Physician] - Freddy Marte MD, MD [Staff Physician] - Disposition: ASSISTED FACILITY - Home Medications Comprehensive Discharge Medication List: Ambulatory Orders Lisinopril [Prinivil] 10 mg PO DAILY 02/17/13 Simvastatin [Zocor -] 20 mg PO HS 10/27/13 Nitroglycerin Sublingual [Nitrostat -] 0.4 mg SL PRN 09/16/14 Ranitidine [Zantac -] 150 mg PO HS #0 tablet 09/17/14 Cholecalciferol (Vitamin D3) [Vitamin D -] 400 unit PO DAILY 04/15/16 Famotidine/Ca Carb/Mag Hydrox [Pepcid Complete Tablet Chew] 1 each PO DAILY 02/19 Pantoprazole Sodium 40 mg PO DAILY 04/15/16 Acetaminophen [Tylenol .Regular Strength -] 650 mg PO Q6H PRN #0 tablet Albuterol 2.5/Ipratropium 0.5 [Duoneb -] 1 amp NEB Q6H PRN #0 amp 05/12/16 Apixaban [Eliquis -] 2.5 mg PO BID tablet 05/12/16 Bacitracin - [Bacitracin Topical Ointment -] 1 applic TP BID tube 05/12/16 Docusate Sodium [Colace -] 100 mg PO BID capsule 05/12/16 Levothyroxine [Synthroid -] 100 mcg PO DAILY@0700 tablet 05/12/16 Metoprolol Tartrate [Lopressor -] 50 mg PO BID tablet 05/12/16 Oxycodone HCl [Roxicodone -] 5 mg PO Q4H PRN #0 tablet MDD 30mg 05/12/16 Polyethylene Glycol 3350 [Miralax 119 gm Btl -] 17 gm PO BID bottle 05/12/16 Potassium Chloride [K-Dur -] 40 meq PO DAILY tablet.er 05/12/16
[2016-05-16] MEDS: oxyCODONE HCL 5 MG TABLET PO PRN (18:48)
[2016-05-16 19:07] VITALS: BP 108/54; PULSE 67; TEMP 98.6
== END 2016-05-16 20:26 | DRG 515 ==
LOC: JER 15:20 → JERBED 19:04 → UNDOADMIN 19:39 → J6S 21:54 → J4W 04-25 20:28 → J7W 05-05 18:39 → J8W 05-11 12:14
PROVIDERS: ADMIT Internal Medicine; ATTEND Internal Medicine
PROC: 09QKXZZ Repair Nasal Mucosa and Soft Tissue, External Approach (ICD-10-PCS; 2016-04-15)
PROC: 3E0F7GC Introduction of Other Therapeutic Substance into Respiratory Tract, Via Natural or Artificial Opening (ICD-10-PCS; 2016-04-19)
PROC: 0QSD04Z Reposition Right Patella with Internal Fixation Device, Open Approach (ICD-10-PCS; principal; 2016-04-19 09:30)
DX: S82.041A Displaced comminuted fracture of right patella, initial encounter for closed fracture (principal); I50.33 Acute on chronic diastolic (congestive) heart failure; A41.9 Sepsis, unspecified organism; I31.3 Pericardial effusion (noninflammatory); N39.0 Urinary tract infection, site not specified; N13.30 Unspecified hydronephrosis; E87.0 Hyperosmolality and hypernatremia; I13.0 Hypertensive heart and chronic kidney disease with heart failure and stage 1 through stage 4 chronic kidney disease, or unspecified chronic kidney disease; N17.9 Acute kidney failure, unspecified; N12 Tubulo-interstitial nephritis, not specified as acute or chronic; S02.2XXA Fracture of nasal bones, initial encounter for closed fracture; S01.21XA Laceration without foreign body of nose, initial encounter; S00.531A Contusion of lip, initial encounter; W01.0XXA Fall on same level from slipping, tripping and stumbling without subsequent striking against object, initial encounter; Y92.480 Sidewalk as the place of occurrence of the external cause; E78.5 Hyperlipidemia, unspecified; I34.1 Nonrheumatic mitral (valve) prolapse; K21.9 Gastro-esophageal reflux disease without esophagitis; I25.119 Atherosclerotic heart disease of native coronary artery with unspecified angina pectoris; E03.9 Hypothyroidism, unspecified; M17.0 Bilateral primary osteoarthritis of knee; Z86.73 Personal history of transient ischemic attack (TIA), and cerebral infarction without residual deficits; K59.00 Constipation, unspecified; E88.09 Other disorders of plasma-protein metabolism, not elsewhere classified; R00.0 Tachycardia, unspecified; D72.829 Elevated white blood cell count, unspecified; I35.1 Nonrheumatic aortic (valve) insufficiency; I11.0 Hypertensive heart disease with heart failure; B96.1 Klebsiella pneumoniae [K. pneumoniae] as the cause of diseases classified elsewhere; E87.6 Hypokalemia; R09.02 Hypoxemia; E86.0 Dehydration; N18.9 Chronic kidney disease, unspecified; R33.8 Other retention of urine
CPT/HCPCS: 36415; 36600; 70450-TC; 70486-TC; 71010-TC; 71275-TC; 73562-TC-LT; 73562-TC-RT; 74000-TC; 74176-TC; 76775-TC; 80048; 80053; 81003; 81015; 82272; 82550; 82803; 83735; 84100; 84484; 85025; 85027; 85610; 85730; 86850; 86900; 86901; 87040; 87086; 87186; 87324; 87449; 90715; 93005; 93010; 93306-TC; 93971-TC; 94640; 94760; 97001-GP; 97116-GP; 99283-25; J1644; Q9967

== ENCOUNTER 2016-06-14 20:08 | Inpatient (IN) | payer BC ==
--- NOTE | 2016-06-14 20:38 | PDOC ---
History of Present Illness - General History Source: Patient, Family Exam Limitations: No Limitations - History of Present Illness Initial Comments: 06/14/16 21:29 The patient is a 89 year old female presenting with her family, with a significant past medical history of CAD, Angina pectoris, mitral valve prolapse , hypothyroidism, HTN, acid reflux and HLD, who presents to the emergency department after being sent by PMD for evaluation for Hypotension. The patient states that she has loss of appetite. She reports blisters on her tongue and notes that tomato sauce stings when he attempts to eat it. She also reports a loss of appetite. The patient denies chest pain, shortness of breath, headache and dizziness. Denies fever, chills, nausea, vomit, diarrhea and constipation. Denies dysuria, frequency, urgency and hematuria. Allergies: codeine, ciprofloxacin, penicillins Past surgical history: None reported Social history: No alcohol, tobacco or drug use reported PMD - Dr. Alfredo Fan <Tai Fletcher - Last Filed: 06/14/16 21:29> <Darin Hill - Last Filed: 06/14/16 23:23> - General Chief Complaint: Blood Pressure Problem Stated Complaint: Blood Pressure Problem Past History <Tai Fletcher - Last Filed: 06/14/16 21:29> - Past Medical History Cardiac Disorders: Yes (CAD, ANGINA,MITRAL VALVE PROPLAPSE) CVA: Yes (2011) GI Disorders: Yes (REFLUX) HTN: Yes Hypercholesterolemia: Yes Suicide Attempt (Hx): No Thyroid Disease: Yes - Immunization History Immunization Up to Date: Yes - Psycho/Social/Smoking Cessation Hx Anxiety: No Suicidal Ideation: No Smoking Status: Yes Smoking History: Unknown if ever smoked Have you smoked in the past 12 months: No Number of Cigarettes Smoked Daily: 0 Information on smoking cessation initiated: No Hx Alcohol Use: No Drug/Substance Use Hx: No Substance Use Type: None Hx Substance Use Treatment: No <Darin Hill - Last Filed: 06/14/16 23:23> - Past Medical History Allergies/Adverse Reactions: Allergies Allergy/AdvReac Type Severity Reaction Status Date / Time ciprofloxacin [From Cipro] Allergy Verified 04/15/16 15:40 ciprofloxacin HCl Allergy Verified 04/15/16 15:40 [From Cipro] codeine Allergy Verified 04/15/16 15:40 Penicillins Allergy Verified 04/15/16 15:40 Home Medications: Ambulatory Orders Aa/Hydrolyzed Collagen, Whey [Lps 15-30 Liquid] 960 ml PO DAILY 06/14/16 Acetaminophen [Tylenol] 650 mg PO DAILY 06/14/16 Acetaminophen [Tylenol] 650 mg PO QID 06/14/16 Albuterol 2.5/Ipratropium 0.5 [Duoneb -] 1 neb NEB Q4H 06/14/16 Apixaban [Eliquis] 2.5 mg PO BID 06/14/16 Atorvastatin Ca [Lipitor] 10 mg PO HS 06/14/16 Ciprofloxacin [Cipro (Restricted To Id)] 500 mg PO Q12H 06/14/16 Docusate Sodium 100 mg PO DAILY 06/14/16 Gentamicin 0.1% Ointment [Garamycin 0.1% Ointment -] 1 applic TP BID 06/14/16 Levothyroxine [Synthroid -] 100 mcg PO DAILY 06/14/16 Lisinopril [Prinivil] 10 mg PO DAILY 06/14/16 Metoprolol Tartrate [Lopressor -] 50 mg PO DAILY 06/14/16 Mirtazapine [Remeron -] 15 mg PO DAILY 06/14/16 Mirtazapine [Remeron -] 15 mg PO DAILY 06/14/16 Nitrofurantoin Macrocrystal [Nitrofurantoin] 100 mg PO DAILY 06/14/16 Nitroglycerin [Nitrostat] 0.4 mg SL DAILY 06/14/16 Ondansetron [Zofran -] 4 mg PO TID 06/14/16 Oxycodone HCl 5 mg PO DAILY 06/14/16 Pantoprazole Sodium [Protonix] 40 mg PO DAILY 06/14/16 Polyethylene Glycol 3350 [Purelax] 17 gm PO BID 06/14/16 Potassium Chloride [K-Dur -] 20 meq PO DAILY 06/14/16 Review of Systems - Review of Systems Able to Perform ROS?: Yes Comments:: 06/14/16 21:34 GENERAL/CONSTITUTIONAL: +Loss of appetite. No fever or chills. No weakness. HEAD, EYES, EARS, NOSE AND THROAT: +Tongue blisters. No change in vision. No ear pain or discharge. No sore throat. CARDIOVASCULAR: No chest pain or shortness of breath RESPIRATORY: No cough, wheezing, or hemoptysis. GASTROINTESTINAL: No nausea, vomiting, diarrhea or constipation. GENITOURINARY: No dysuria, frequency, or change in urination. MUSCULOSKELETAL: No joint or muscle swelling or pain. No neck or back pain. SKIN: No rash NEUROLOGIC: No headache, vertigo, loss of consciousness, or change in strength/ sensation. ENDOCRINE: No increased thirst. No abnormal weight change HEMATOLOGIC/LYMPHATIC: No anemia, easy bleeding, or history of blood clots. ALLERGIC/IMMUNOLOGIC: No hives or skin allergy. <Tai Fletcher - Last Filed: 06/14/16 21:29> *Physical Exam - Vital Signs Last Vital Signs Temp Pulse Resp BP Pulse Ox 98.7 F 70 18 93/55 99 06/14/16 20:28 06/14/16 20:28 06/14/16 20:28 06/14/16 20:28 06/14/16 20:28 - Physical Exam Comments: 06/14/16 21:34 GENERAL: Awake, alert, and fully oriented, in no acute distress HEAD: No signs of trauma, normocephalic, atraumatic EYES: PERRLA, EOMI, sclera anicteric, conjunctiva clear ENT: Auricles normal inspection, hearing grossly normal, nares patent, oropharynx clear without exudates. Moist mucosa NECK: Normal ROM, supple, no lymphadenopathy, JVD, or masses LUNGS: No distress, speaks full sentences, clear to auscultation bilaterally HEART: Regular rate and rhythm, normal S1 and S2, no murmurs, rubs or gallops, peripheral pulses normal and equal bilaterally. ABDOMEN: Soft, nontender, normoactive bowel sounds. No guarding, no rebound. No masses EXTREMITIES: Normal inspection, Normal range of motion, no edema. No clubbing or cyanosis. NEUROLOGICAL: Cranial nerves II through XII grossly intact. Normal speech, no focal sensorimotor deficits SKIN: Warm, Dry, normal turgor, no rashes or lesions noted. <Tai Fletcher - Last Filed: 06/14/16 21:29> - Vital Signs Last Vital Signs Temp Pulse Resp BP Pulse Ox 98.7 F 70 18 93/55 99 06/14/16 20:28 06/14/16 20:28 06/14/16 20:28 06/14/16 20:28 06/14/16 20:28 <Darin Hill - Last Filed: 06/14/16 23:23> ED Treatment Course - LABORATORY CBC & Chemistry Diagram: 06/14/16 21:00 06/14/16 21:00 - ADDITIONAL ORDERS Additional order review: 06/14/16 21:00 RBC 3.67 MCV 90.7 MCHC 32.3 RDW 17.4 H D MPV 8.0 Neutrophils % 74.4 D Lymphocytes % 16.2 D Monocytes % 7.7 Eosinophils % 0.4 D Basophils % 1.3 <Tai Fletcher - Last Filed: 06/14/16 21:29> - LABORATORY CBC & Chemistry Diagram: 06/14/16 21:00 06/14/16 21:00 <Darin iHll - Last Filed: 06/14/16 23:23> *DC/Admit/Observation/Transfer - Attestations Scribe Attestion: 06/14/16 21:34 Documentation prepared by Tai Fletcher, acting as nurses medical assistants phlebotomists for Darin Hill MD <Tai Fletcher - Last Filed: 06/14/16 21:29> - Discharge Dispostion Admit: Yes <Darin Hill - Last Filed: 06/14/16 23:23> Diagnosis at time of Disposition: Urinary tract infection, Acute pyelonephritis, Dehydration - Discharge Dispostion Condition at time of disposition: Guarded - Referrals Referrals: Alfredo Fan MD [Primary Care Provider] -
[2016-06-14 20:39] VITALS: BMI 21.9
[2016-06-14] MEDS ORDERED: SODIUM CHLORIDE 1,000 ML IV SCH (20:45)
[2016-06-14] MEDS ORDERED: SODIUM CHLORIDE 500 ML IV STA (20:45)
[2016-06-14 21:09] LABS: BASOPHIL 1.3 % (0-2.0); EOSINOPHIL 0.4 % (0-4.5); MCH 29.3 pg (25.7-33.7); MCHC 32.3 g/dl (32.0-36.0); MEAN CELL VOLUME 90.7 fl (80-96); NEUTROPHILS 74.4 % (42.8-82.8); PLATELET COUNT 318 K/MM3 (134-434); RDW 17.4 % (11.6-15.6); WHITE BLOOD COUNT 9.9 K/mm3 (4.0-10.0)
[2016-06-14 21:41] LABS: ALBUMIN 2.4 g/dl (3.4-5.0); BILIRUBIN,TOTAL 0.5 mg/dL (0.2-1.0); CALCIUM 8.2 mg/dL (8.5-10.1); TOT PROT 5.8 g/dl (6.4-8.2)
[2016-06-14 21:51] LABS: URINE APPEARANCE CLOUDY; URINE BILIRUBIN NEGATIVE (NEGATIVE); URINE COLOR YELLOW; URINE GLUCOSE (UA) NEGATIVE (NEGATIVE); URINE KETONE NEGATIVE (NEGATIVE); URINE NITRITE POSITIVE (NEGATIVE); URINE UROBILINOGEN NEGATIVE E.U./dl (0.2-1.0)
[2016-06-14 21:52] LABS: URINE BLOOD 2+ (NEGATIVE); URINE LEUK ESTERASE 3+ (NEGATIVE); URINE PROTEIN 2+ (NEGATIVE)
[2016-06-14 21:57] LABS: URINE BACTERIA MODERATE /hpf (NONE SEEN); URINE RBC 4 /hpf (0-3); URINE WBC 800 /hpf (3-5)
[2016-06-14] MEDS ORDERED: AZTREONAM 1 GM in DEXTROSE 5%-WATER - 50 ML IVPB ONE (22:07)
[2016-06-14] MEDS: GENTAMICIN INJECTION 120 MG in DEXTROSE 5%-WATER - 250 ML IVPB SCH (22:28)
[2016-06-14] MEDS ORDERED: SODIUM CHLORIDE 1,000 ML IV STA (22:36)
[2016-06-14] MEDS ORDERED: ALBUTEROL SO4 2.5/IPRATROPIUM 0.5 INH SOL 3 ML VIAL.NEB. NEB PRN (23:23)
[2016-06-14] MEDS ORDERED: ONDANSETRON 4 MG/2 ML VIAL IVPB PRN (23:30)
[2016-06-15] MEDS ORDERED: ACETAMINOPHEN 325 MG TABLET (FP) ONE (00:27)
[2016-06-15] MEDS ORDERED: morphine CARPU-JECT 2 MG/1 ML DISP.SYRIN IVPUSH ONE (00:36)
[2016-06-15] MEDS ORDERED: morphine CARPU-JECT 2 MG/1 ML DISP.SYRIN ONE (00:44)
[2016-06-15] MEDS: SODIUM CHLORIDE 1,000 ML IV SCH ×3 (00:57→23:50)
[2016-06-15] MEDS ORDERED: AZTREONAM 1 GM in DEXTROSE 5%-WATER - 50 ML IVPB ONE (03:00)
[2016-06-15 07:19] LABS: BASOPHIL 0.9 % (0-2.0); EOSINOPHIL 0.9 % (0-4.5); MCH 29.7 pg (25.7-33.7); MCHC 32.2 g/dl (32.0-36.0); MEAN CELL VOLUME 92.2 fl (80-96); MEAN PLT VOLUME 7.7 fl (7.5-11.1); NEUTROPHILS 69.2 % (42.8-82.8); PLATELET COUNT 234 K/MM3 (134-434); RDW 17.8 % (11.6-15.6); WHITE BLOOD COUNT 8.2 K/mm3 (4.0-10.0)
[2016-06-15 07:42] LABS: ALBUMIN 1.9 g/dl (3.4-5.0); ANION GAP 11 (8-16); BILIRUBIN,TOTAL 0.4 mg/dL (0.2-1.0); CALCIUM 7.3 mg/dL (8.5-10.1); CO2 20 mmol/L (21-32); CREATININE 0.7 mg/dL (0.55-1.02); GLUCOSE,RANDOM 79 mg/dL (74-106); SGOT/AST 13 U/L (15-37); SGPT/ALT 11 U/L (12-78); TOT PROT 4.8 g/dl (6.4-8.2)
[2016-06-15 07:44] LABS: ALK PHOS 50 U/L (45-117)
[2016-06-15] MEDS: LEVOTHYROXINE NA 100 MCG TABLET (FP) PO SCH (07:50)
[2016-06-15] MEDS ORDERED: LEVOTHYROXINE NA 25 MCG TABLET (FP) ONE (07:50)
[2016-06-15] MEDS: DOCUSATE SODIUM 100 MG CAPSULE (FP) PO SCH (09:57)
[2016-06-15] MEDS: APIXABAN 2.5 MG TABLET PO SCH ×2 (09:58→22:19)
[2016-06-15] MEDS: GENTAMICIN SO4 0.1% TOPICAL OINTMENT 15 GM/TUBE TUBE TP SCH ×2 (09:58→22:19)
[2016-06-15] MEDS ORDERED: POLYETHYLENE GLYCOL 17 GM PO SCH (10:00)
[2016-06-15] MEDS: PANTOPRAZOLE 40 MG TABLET (FP) PO SCH (10:01)
--- NOTE | 2016-06-15 11:51 | HP ---
Admitting History and Physical - Primary Care Physician PCP: Alfredo Fan - Admission Chief Complaint: My foot hurts History of Present Illness: Ms Mei is a pleasant 89 year old female who comes in with R foot pain. She recently had a long and complicated stay after fall requiring knee surgery. It appears she was doing well but has been experiencing pain in her R foot. She says that there is a sore there that is very painful. She denies fevers, chills , lightheadedness, dizziness, chest pain, shortness of breath, nausea, vomiting , diarrhea, constipation, or swelling. She was seen in the office and noted to have hypotension and was sent in for further evaluation. She was found to have a UTI and was admitted for broad spectrum antibiotics. 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: Yes: CVA Cardiovascular: Yes: HTN, Hyperlipdemia Gastrointestinal: Yes: GERD Renal/: Yes: UTI - Past Surgical History Past Surgical History: Yes: Hysterectomy, Joint Replacement - Smoking History Smoking history: Unknown if ever smoked Have you smoked in the past 12 months: No Aproximately how many cigarettes per day: 0 - Alcohol/Substance Use Hx Alcohol Use: No History of Substance Use: reports: None - Social History ADL: Independent History of Recent Travel: No Home Medications - Allergies Allergies/Adverse Reactions: Allergies Allergy/AdvReac Type Severity Reaction Status Date / Time ciprofloxacin [From Cipro] Allergy Verified 06/15/16 08:00 ciprofloxacin HCl Allergy Verified 06/15/16 08:00 [From Cipro] codeine Allergy Verified 06/15/16 08:00 Penicillins Allergy Verified 06/15/16 08:00 - Home Medications Home Medications: Ambulatory Orders Aa/Hydrolyzed Collagen, Whey [Lps 15-30 Liquid] 960 ml PO DAILY 06/14/16 Acetaminophen [Tylenol] 650 mg PO DAILY 06/14/16 Acetaminophen [Tylenol] 650 mg PO QID 06/14/16 Albuterol 2.5/Ipratropium 0.5 [Duoneb -] 1 neb NEB Q4H 06/14/16 Apixaban [Eliquis] 2.5 mg PO BID 06/14/16 Atorvastatin Ca [Lipitor] 10 mg PO HS 06/14/16 Ciprofloxacin [Cipro (Restricted To Id)] 500 mg PO Q12H 06/14/16 Docusate Sodium 100 mg PO DAILY 06/14/16 Gentamicin 0.1% Ointment [Garamycin 0.1% Ointment -] 1 applic TP BID 06/14/16 Levothyroxine [Synthroid -] 100 mcg PO DAILY 06/14/16 Lisinopril [Prinivil] 10 mg PO DAILY 06/14/16 Metoprolol Tartrate [Lopressor -] 50 mg PO DAILY 06/14/16 Mirtazapine [Remeron -] 15 mg PO DAILY 06/14/16 Mirtazapine [Remeron -] 15 mg PO DAILY 06/14/16 Nitrofurantoin Macrocrystal [Nitrofurantoin] 100 mg PO DAILY 06/14/16 Nitroglycerin [Nitrostat] 0.4 mg SL DAILY 06/14/16 Ondansetron [Zofran -] 4 mg PO TID 06/14/16 Oxycodone HCl 5 mg PO DAILY 06/14/16 Pantoprazole Sodium [Protonix] 40 mg PO DAILY 06/14/16 Polyethylene Glycol 3350 [Purelax] 17 gm PO BID 06/14/16 Potassium Chloride [K-Dur -] 20 meq PO DAILY 06/14/16 Family Disease History - Family Disease History Family Disease History: Other: Father (Parkinsons), Mother (cirrhosis), Brother (bladder cancer) Review of Systems Findings/Remarks: Full review of systems obtained, as per HPI and otherwise negative Physical Examination Vital Signs: Vital Signs Temperature 98.7 F 06/14/16 20:28 Pulse Rate 65 06/15/16 07:45 Respiratory Rate 15 06/15/16 07:45 Blood Pressure 111/53 06/15/16 07:45 O2 Sat by Pulse Oximetry (%) 100 06/15/16 07:45 Constitutional: Yes: No Distress, Calm Eyes: Yes: Conjunctiva Clear, PERRL HENT: Yes: Atraumatic, Normocephalic Cardiovascular: Yes: Regular Rate and Rhythm. No: Gallop, Murmur, Rub Respiratory: Yes: Regular, CTA Bilaterally. No: Rales, Rhonchi, Wheezes Gastrointestinal: Yes: Normal Bowel Sounds, Soft. No: Distention, Tenderness Extremities: Yes: Other (ulceration R heel) Edema: Yes Edema: RLE: Trace Labs: CBC, BMP 06/15/16 06:00 06/15/16 06:00 Imaging - Results Chest X-ray: Report Reviewed, Image Reviewed Problem List - Problems (1) UTI (urinary tract infection) Assessment/Plan: -patient with positive urinalysis for UTI -not having back pain, at this point do not think this is pyelonephritis -has history of ESBL e. coli in urine -ID consulted to manage antibiotics Code(s): N39.0 - URINARY TRACT INFECTION, SITE NOT SPECIFIED (2) Heel ulceration Assessment/Plan: -patient complains of heel pain -ESR and CRP elevated -will obtain x-ray -ID consulted, antibiotics to cover possible infection Code(s): L97.409 - NON-PRS CHRONIC ULCER OF UNSP HEEL AND MIDFOOT W UNSP SEVERT (3) Atrial fibrillation Assessment/Plan: -currently rate controlled -continue eliquis Code(s): I48.91 - UNSPECIFIED ATRIAL FIBRILLATION Qualifiers: Atrial fibrillation type: paroxysmal Qualified Code(s): I48.0 - Paroxysmal atrial fibrillation (4) Hypercholesteremia Assessment/Plan: -continue statin Code(s): E78.0 - PURE HYPERCHOLESTEROLEMIA * DO NOT USE * (5) Hypertension Assessment/Plan: -hypotensive -hydrate with IVF -hold metoprolol and lisinopril currently Code(s): I10 - ESSENTIAL (PRIMARY) HYPERTENSION Qualifiers: Hypertension type: essential hypertension Qualified Code(s): I10 - Essential (primary) hypertension (6) Hypothyroid Assessment/Plan: -continue synthroid Code(s): E03.9 - HYPOTHYROIDISM, UNSPECIFIED Qualifiers: Hypothyroidism type: unspecified Qualified Code(s): E03.9 - Hypothyroidism, unspecified
[2016-06-15 13:14] LABS: C-REACTIVE PROTEIN 5.1 MG/DL (0.00-0.3)
[2016-06-15] MEDS ORDERED: PT OWN MED DRAWER 7, Y5N ONE (22:13)
[2016-06-15] MEDS: ATORVASTATIN CA 10 MG TABLET (FP) PO SCH (22:19)
[2016-06-15] MEDS: MIRTAZAPINE 15 MG TABLET (FP) PO SCH (22:19)
[2016-06-15] MEDS: GENTAMICIN INJECTION 120 MG in DEXTROSE 5%-WATER - 250 ML IVPB SCH (22:23)
[2016-06-15] MEDS: POLYETHYLENE GLYCOL 3350 119 GM BTL PO SCH (22:28)
[2016-06-16] MEDS: LEVOTHYROXINE NA 100 MCG TABLET (FP) PO SCH (06:44)
[2016-06-16 07:44] LABS: EOSINOPHIL 0.6 % (0-4.5); MCH 29.5 pg (25.7-33.7); MCHC 32.5 g/dl (32.0-36.0); MEAN CELL VOLUME 90.8 fl (80-96); NEUTROPHILS 72.9 % (42.8-82.8); PLATELET COUNT 244 K/MM3 (134-434); RDW 17.2 % (11.6-15.6)
[2016-06-16 08:14] LABS: CALCIUM 8.1 mg/dL (8.5-10.1); CREATININE 0.5 mg/dL (0.55-1.02); MAGNESIUM 1.9 mg/dL (1.8-2.4); PHOSPHOROUS 2.7 mg/dL (2.5-4.9)
[2016-06-16] MEDS ORDERED: PT OWN MED DRAWER 7, Y5N ONE (10:40)
[2016-06-16] MEDS: DOCUSATE SODIUM 100 MG CAPSULE (FP) PO SCH (11:11)
[2016-06-16] MEDS: PANTOPRAZOLE 40 MG TABLET (FP) PO SCH (11:12)
[2016-06-16] MEDS: APIXABAN 2.5 MG TABLET PO SCH ×2 (11:12→21:30)
[2016-06-16] MEDS: GENTAMICIN SO4 0.1% TOPICAL OINTMENT 15 GM/TUBE TUBE TP SCH ×2 (11:13→21:31)
[2016-06-16] MEDS: POLYETHYLENE GLYCOL 3350 119 GM BTL PO SCH ×2 (12:00→21:48)
--- NOTE | 2016-06-16 12:47 | PN ---
Progress Note, Physician Chief Complaint: Ms Mei is still having foot pain. Says it does not hurt to walk on, but hurts to touch. No cp, sob, n/v. - Current Medication List Current Medications: Active Medications Acetaminophen (Tylenol -) 650 mg PO Q6H PRN PRN Reason: BACK PAIN Albuterol/Ipratropium (Duoneb -) 1 amp NEB Q6H PRN PRN Reason: WHEEZING Apixaban (Eliquis -) 2.5 mg PO BID [facility] Last Admin: 06/16/16 11:12 Dose: 2.5 mg Atorvastatin Calcium (Lipitor -) 10 mg PO HS [facility] Last Admin: 06/15/16 22:19 Dose: 10 mg Docusate Sodium (Colace -) 100 mg PO DAILY [facility] Last Admin: 06/16/16 11:11 Dose: 100 mg Gentamicin Sulfate (Garamycin 0.1% Ointment -) 1 applic TP BID [facility] Last Admin: 06/16/16 11:13 Dose: 1 applic Aztreonam 1 gm/ Dextrose 50 mls @ 100 mls/hr IVPB Q8H-IV [facility] Sodium Chloride (Normal Saline -) 1,000 mls @ 50 mls/hr IV ASDIR [facility] Last Admin: 06/15/16 23:50 Dose: Not Given Levothyroxine Sodium (Synthroid -) 100 mcg PO ACBK [facility] Last Admin: 06/16/16 06:44 Dose: 100 mcg Mirtazapine (Remeron -) 15 mg PO HS [facility] Last Admin: 06/15/16 22:19 Dose: 15 mg Ondansetron HCl (Zofran Injection) 4 mg IVPB Q6H PRN PRN Reason: NAUSEA Oxycodone HCl (Roxicodone -) 5 mg PO Q6H PRN PRN Reason: PAIN Pantoprazole Sodium (Protonix -) 40 mg PO DAILY [facility] Last Admin: 06/16/16 11:12 Dose: 40 mg Polyethylene Glycol (Miralax (For Daily Use) -) 17 gm PO BID [facility] Last Admin: 06/15/16 22:28 Dose: Not Given - Objective Vital Signs: Vital Signs Temperature 97.4 F L 06/16/16 10:00 Pulse Rate 70 06/16/16 10:00 Respiratory Rate 20 06/16/16 10:00 Blood Pressure 131/71 06/16/16 10:00 O2 Sat by Pulse Oximetry (%) 99 06/15/16 23:30 Constitutional: Yes: Well Nourished, No Distress, Calm Cardiovascular: Yes: Regular Rate and Rhythm. No: Gallop, Murmur, Rub Respiratory: Yes: Regular, CTA Bilaterally. No: Rales, Rhonchi, Wheezes Gastrointestinal: Yes: Normal Bowel Sounds, Soft. No: Distention, Tenderness Extremities: Yes: WNL Edema: No Labs: CBC, BMP 06/16/16 06:25 06/16/16 06:25 Problem List - Problems (1) UTI (urinary tract infection) Code(s): N39.0 - URINARY TRACT INFECTION, SITE NOT SPECIFIED (2) Heel ulceration Code(s): L97.409 - NON-PRS CHRONIC ULCER OF UNSP HEEL AND MIDFOOT W UNSP SEVERT (3) Atrial fibrillation Code(s): I48.91 - UNSPECIFIED ATRIAL FIBRILLATION Qualifiers: Atrial fibrillation type: paroxysmal Qualified Code(s): I48.0 - Paroxysmal atrial fibrillation (4) Hypercholesteremia Code(s): E78.0 - PURE HYPERCHOLESTEROLEMIA * DO NOT USE * (5) Hypertension Code(s): I10 - ESSENTIAL (PRIMARY) HYPERTENSION Qualifiers: Hypertension type: essential hypertension Qualified Code(s): I10 - Essential (primary) hypertension (6) Hypothyroid Code(s): E03.9 - HYPOTHYROIDISM, UNSPECIFIED Qualifiers: Hypothyroidism type: unspecified Qualified Code(s): E03.9 - Hypothyroidism, unspecified Assessment/Plan (1) UTI (urinary tract infection) Assessment/Plan: -patient with positive UA -ID following and managing antibiotics -awaiting cultures Code(s): N39.0 - URINARY TRACT INFECTION, SITE NOT SPECIFIED (2) Heel ulceration Assessment/Plan: -patient complains of heel pain -ESR and CRP elevated -x-ray reviewed, however not painful to walk on -will check uric acid, ? gout -wound care consult Code(s): L97.409 - NON-PRS CHRONIC ULCER OF UNSP HEEL AND MIDFOOT W UNSP SEVERT (3) Atrial fibrillation Assessment/Plan: -currently rate controlled -continue eliquis Code(s): I48.91 - UNSPECIFIED ATRIAL FIBRILLATION Qualifiers: Atrial fibrillation type: paroxysmal Qualified Code(s): I48.0 - Paroxysmal atrial fibrillation (4) Hypercholesteremia Assessment/Plan: -continue statin Code(s): E78.0 - PURE HYPERCHOLESTEROLEMIA * DO NOT USE * (5) Hypertension Assessment/Plan: -much improved -continue IVF currently -holding antihypertensives Code(s): I10 - ESSENTIAL (PRIMARY) HYPERTENSION Qualifiers: Hypertension type: essential hypertension Qualified Code(s): I10 - Essential (primary) hypertension (6) Hypothyroid Assessment/Plan: -continue synthroid Code(s): E03.9 - HYPOTHYROIDISM, UNSPECIFIED Qualifiers: Hypothyroidism type: unspecified Qualified Code(s): E03.9 - Hypothyroidism, unspecified
--- NOTE | 2016-06-16 16:45 | CONSULT ---
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: CVA Cardio/Vascular: Yes: HTN, Hyperlipdemia Gastrointestinal: Yes: GERD Renal/: Yes: UTI - Past Surgical History Past Surgical History: Yes: Hysterectomy, Joint Replacement - Alcohol/Substance Use Hx Alcohol Use: No History of Substance Use: reports: None - Smoking History Smoking history: Unknown if ever smoked Have you smoked in the past 12 months: No Aproximately how many cigarettes per day: 0 - Social History ADL: Independent History of Recent Travel: No Home Medications - Allergies Allergies/Adverse Reactions: Allergies Allergy/AdvReac Type Severity Reaction Status Date / Time ciprofloxacin [From Cipro] Allergy Verified 06/15/16 08:00 ciprofloxacin HCl Allergy Verified 06/15/16 08:00 [From Cipro] codeine Allergy Verified 06/15/16 08:00 Penicillins Allergy Verified 06/15/16 08:00 - Home Medications Home Medications: Ambulatory Orders Aa/Hydrolyzed Collagen, Whey [Lps 15-30 Liquid] 960 ml PO DAILY 06/14/16 Acetaminophen [Tylenol] 650 mg PO DAILY 06/14/16 Acetaminophen [Tylenol] 650 mg PO QID 06/14/16 Albuterol 2.5/Ipratropium 0.5 [Duoneb -] 1 neb NEB Q4H 06/14/16 Apixaban [Eliquis] 2.5 mg PO BID 06/14/16 Atorvastatin Ca [Lipitor] 10 mg PO HS 06/14/16 Ciprofloxacin [Cipro (Restricted To Id)] 500 mg PO Q12H 06/14/16 Docusate Sodium 100 mg PO DAILY 06/14/16 Gentamicin 0.1% Ointment [Garamycin 0.1% Ointment -] 1 applic TP BID 06/14/16 Levothyroxine [Synthroid -] 100 mcg PO DAILY 06/14/16 Lisinopril [Prinivil] 10 mg PO DAILY 06/14/16 Metoprolol Tartrate [Lopressor -] 50 mg PO DAILY 06/14/16 Mirtazapine [Remeron -] 15 mg PO DAILY 06/14/16 Mirtazapine [Remeron -] 15 mg PO DAILY 06/14/16 Nitrofurantoin Macrocrystal [Nitrofurantoin] 100 mg PO DAILY 06/14/16 Nitroglycerin [Nitrostat] 0.4 mg SL DAILY 06/14/16 Ondansetron [Zofran -] 4 mg PO TID 06/14/16 Oxycodone HCl 5 mg PO DAILY 06/14/16 Pantoprazole Sodium [Protonix] 40 mg PO DAILY 06/14/16 Polyethylene Glycol 3350 [Purelax] 17 gm PO BID 06/14/16 Potassium Chloride [K-Dur -] 20 meq PO DAILY 06/14/16 Family Disease History - Family Disease History Family Disease History: Other: Father (Parkinsons), Mother (cirrhosis), Brother (bladder cancer) Physical Exam Vital Signs: Vital Signs Temperature 98.2 F 06/16/16 14:55 Pulse Rate 84 06/16/16 14:55 Respiratory Rate 20 06/16/16 14:55 Blood Pressure 106/64 06/16/16 14:55 O2 Sat by Pulse Oximetry (%) 99 06/15/16 23:30 Labs: CBC, BMP 06/16/16 06:25 06/16/16 06:25 Assessment/Plan Vascular Surgery Ms Mei is a pleasant 89 year old female who comes in with R foot pain. She recently had a long and complicated stay after fall requiring knee surgery. It appears she was doing well but has been experiencing pain in her R foot. She says that there is a sore there that is very painful. She denies fevers, chills , lightheadedness, dizziness, chest pain, shortness of breath, nausea, vomiting , diarrhea, constipation, or swelling. She was seen in the office and noted to have hypotension and was sent in for further evaluation. She was found to have a UTI and was admitted for broad spectrum antibiotics. 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: Yes: CVA Cardiovascular: Yes: HTN, Hyperlipdemia Gastrointestinal: Yes: GERD Renal/: Yes: UTI - Past Surgical History Past Surgical History: Yes: Hysterectomy, Joint Replacement - Smoking History Smoking history: Unknown if ever smoked Have you smoked in the past 12 months: No Aproximately how many cigarettes per day: 0 - Alcohol/Substance Use Hx Alcohol Use: No History of Substance Use: reports: None - Social History ADL: Independent History of Recent Travel: No Home Medications - Allergies Allergies/Adverse Reactions: Allergies Allergy/AdvReac Type Severity Reaction Status Date / Time ciprofloxacin [From Cipro] Allergy Verified 06/15/16 08:00 ciprofloxacin HCl Allergy Verified 06/15/16 08:00 [From Cipro] codeine Allergy Verified 06/15/16 08:00 Penicillins Allergy Verified 06/15/16 08:00 - Home Medications Home Medications: Ambulatory Orders Aa/Hydrolyzed Collagen, Whey [Lps 15-30 Liquid] 960 ml PO DAILY 06/14/16 Acetaminophen [Tylenol] 650 mg PO DAILY 06/14/16 Acetaminophen [Tylenol] 650 mg PO QID 06/14/16 Albuterol 2.5/Ipratropium 0.5 [Duoneb -] 1 neb NEB Q4H 06/14/16 Apixaban [Eliquis] 2.5 mg PO BID 06/14/16 Atorvastatin Ca [Lipitor] 10 mg PO HS 06/14/16 Ciprofloxacin [Cipro (Restricted To Id)] 500 mg PO Q12H 06/14/16 Docusate Sodium 100 mg PO DAILY 06/14/16 Gentamicin 0.1% Ointment [Garamycin 0.1% Ointment -] 1 applic TP BID 06/14/16 Levothyroxine [Synthroid -] 100 mcg PO DAILY 06/14/16 Lisinopril [Prinivil] 10 mg PO DAILY 06/14/16 Metoprolol Tartrate [Lopressor -] 50 mg PO DAILY 06/14/16 Mirtazapine [Remeron -] 15 mg PO DAILY 06/14/16 Mirtazapine [Remeron -] 15 mg PO DAILY 06/14/16 Nitrofurantoin Macrocrystal [Nitrofurantoin] 100 mg PO DAILY 06/14/16 Nitroglycerin [Nitrostat] 0.4 mg SL DAILY 06/14/16 Ondansetron [Zofran -] 4 mg PO TID 06/14/16 Oxycodone HCl 5 mg PO DAILY 06/14/16 Pantoprazole Sodium [Protonix] 40 mg PO DAILY 06/14/16 Polyethylene Glycol 3350 [Purelax] 17 gm PO BID 06/14/16 Potassium Chloride [K-Dur -] 20 meq PO DAILY 06/14/16 PE Head - NC/AT Lung - CTA heart - RRR abd - soft,nt,nd Ext - Right lateral heel ulcer --- 3x3cm. with eschar. Palpable DP and PT pulse. A/P Right lateral heel ulcer 1. Palpable pulses. 2. heel pads to offload heel 3. Santyl to heel wound daily. Konstantin Banda DO
--- NOTE | 2016-06-16 17:14 | CONSULT ---
Consult Consult Specialty:: infectious diseases Reason for Consultation:: uti - History of Present Illness Chief Complaint: pain in the leg History of Present Illness: 89 year old female who got admitted with R foot pain. She recently had a long and complicated stay after fall requiring knee surgery. It appears she was doing well but has been experiencing pain in her R foot. She says that there is a sore there that is very painful. She denies fevers, chills, lightheadedness, dizziness, chest pain, shortness of breath, nausea, vomiting, diarrhea, constipation, or swelling. She was seen in the office and noted to have hypotension and was sent in for further evaluation. She was found to have a UTI and was admitted for broad spectrum antibiotics. 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 Cardio/Vascular: Yes: HTN, Hyperlipdemia Gastrointestinal: Yes: GERD Renal/: Yes: UTI - Past Surgical History Past Surgical History: Yes: Hysterectomy, Joint Replacement - Alcohol/Substance Use Hx Alcohol Use: No History of Substance Use: reports: None - Smoking History Smoking history: Unknown if ever smoked Have you smoked in the past 12 months: No Aproximately how many cigarettes per day: 0 - Social History ADL: Independent History of Recent Travel: No Home Medications - Allergies Allergies/Adverse Reactions: Allergies Allergy/AdvReac Type Severity Reaction Status Date / Time ciprofloxacin [From Cipro] Allergy Verified 06/15/16 08:00 ciprofloxacin HCl Allergy Verified 06/15/16 08:00 [From Cipro] codeine Allergy Verified 06/15/16 08:00 Penicillins Allergy Verified 06/15/16 08:00 - Home Medications Home Medications: Ambulatory Orders Aa/Hydrolyzed Collagen, Whey [Lps 15-30 Liquid] 960 ml PO DAILY 06/14/16 Acetaminophen [Tylenol] 650 mg PO DAILY 06/14/16 Acetaminophen [Tylenol] 650 mg PO QID 06/14/16 Albuterol 2.5/Ipratropium 0.5 [Duoneb -] 1 neb NEB Q4H 06/14/16 Apixaban [Eliquis] 2.5 mg PO BID 06/14/16 Atorvastatin Ca [Lipitor] 10 mg PO HS 06/14/16 Ciprofloxacin [Cipro (Restricted To Id)] 500 mg PO Q12H 06/14/16 Docusate Sodium 100 mg PO DAILY 06/14/16 Gentamicin 0.1% Ointment [Garamycin 0.1% Ointment -] 1 applic TP BID 06/14/16 Levothyroxine [Synthroid -] 100 mcg PO DAILY 06/14/16 Lisinopril [Prinivil] 10 mg PO DAILY 06/14/16 Metoprolol Tartrate [Lopressor -] 50 mg PO DAILY 06/14/16 Mirtazapine [Remeron -] 15 mg PO DAILY 06/14/16 Mirtazapine [Remeron -] 15 mg PO DAILY 06/14/16 Nitrofurantoin Macrocrystal [Nitrofurantoin] 100 mg PO DAILY 06/14/16 Nitroglycerin [Nitrostat] 0.4 mg SL DAILY 06/14/16 Ondansetron [Zofran -] 4 mg PO TID 06/14/16 Oxycodone HCl 5 mg PO DAILY 06/14/16 Pantoprazole Sodium [Protonix] 40 mg PO DAILY 06/14/16 Polyethylene Glycol 3350 [Purelax] 17 gm PO BID 06/14/16 Potassium Chloride [K-Dur -] 20 meq PO DAILY 06/14/16 Family Disease History - Family Disease History Family Disease History: Other: Father (Parkinsons), Mother (cirrhosis), Brother (bladder cancer) Review of Systems - Review of Systems Constitutional: reports: Other Eyes: reports: No Symptoms HENT: reports: No Symptoms Neck: reports: No Symptoms Cardiovascular: reports: No Symptoms Respiratory: reports: No Symptoms Gastrointestinal: reports: No Symptoms Genitourinary: reports: No Symptoms Musculoskeletal: reports: Joint Pain, Other Integumentary: reports: No Symptoms Neurological: reports: Dizziness, Other Endocrine: reports: No Symptoms Hematology/Lymphatic: reports: No Symptoms Psychiatric: reports: No Symptoms Physical Exam Vital Signs: Vital Signs Temperature 98.2 F 06/16/16 14:55 Pulse Rate 84 06/16/16 14:55 Respiratory Rate 20 06/16/16 14:55 Blood Pressure 106/64 06/16/16 14:55 O2 Sat by Pulse Oximetry (%) 99 06/15/16 23:30 Constitutional: Yes: Calm, Mild Distress Eyes: Yes: Conjunctiva Clear HENT: Yes: Atraumatic Neck: Yes: Supple, Trachea Midline Cardiovascular: Yes: Regular Rate and Rhythm, Pulse Irregular Respiratory: Yes: Regular, CTA Bilaterally Gastrointestinal: Yes: Normal Bowel Sounds, Soft Musculoskeletal: Yes: Other Extremities: Yes: Other (foot drop) Wound/Incision: Yes: Other (r heel ulceration) Psychiatric: Yes: Alert Labs: CBC, BMP 06/16/16 06:25 06/16/16 06:25 Imaging - Results Chest X-ray: Report Reviewed, Image Reviewed X-ray: Report Reviewed, Image Reviewed Assessment/Plan Problem List - Problems (1) UTI (urinary tract infection) Code(s): N39.0 - URINARY TRACT INFECTION, SITE NOT SPECIFIED (2) Heel ulceration Code(s): L97.409 - NON-PRS CHRONIC ULCER OF UNSP HEEL AND MIDFOOT W UNSP SEVERT (3) Atrial fibrillation Code(s): I48.91 - UNSPECIFIED ATRIAL FIBRILLATION Qualifiers: Atrial fibrillation type: paroxysmal Qualified Code(s): I48.0 - Paroxysmal atrial fibrillation (4) Hypercholesteremia Code(s): E78.0 - PURE HYPERCHOLESTEROLEMIA * DO NOT USE * (5) Hypertension Code(s): I10 - ESSENTIAL (PRIMARY) HYPERTENSION Qualifiers: Hypertension type: essential hypertension Qualified Code(s): I10 - Essential (primary) hypertension (6) Hypothyroid Code(s): E03.9 - HYPOTHYROIDISM, UNSPECIFIED Qualifiers: Hypothyroidism type: unspecified Qualified Code(s): E03.9 - Hypothyroidism, unspecified plan patient already got aztreonam will continue that for now will await final identification if esbl and sensitivities different will change abx
[2016-06-16] MEDS: COLLAGENASE CLOSTRIDIUM HIST. 30 GRAMS TUBE TP SCH (18:25)
[2016-06-16] MEDS: AZTREONAM 1 GM in DEXTROSE 5%-WATER - 50 ML IVPB SCH (18:26)
[2016-06-16] MEDS: ATORVASTATIN CA 10 MG TABLET (FP) PO SCH (21:30)
[2016-06-16] MEDS: MIRTAZAPINE 15 MG TABLET (FP) PO SCH (21:30)
[2016-06-17] MEDS: SODIUM CHLORIDE 1,000 ML IV SCH ×3 (01:57→23:00)
[2016-06-17] MEDS: AZTREONAM 1 GM in DEXTROSE 5%-WATER - 50 ML IVPB SCH ×3 (02:04→17:14)
[2016-06-17] MEDS: LEVOTHYROXINE NA 100 MCG TABLET (FP) PO SCH (06:14)
[2016-06-17 07:12] LABS: EOSINOPHIL 0.9 % (0-4.5); MCH 29.7 pg (25.7-33.7); MCHC 33.3 g/dl (32.0-36.0); MEAN CELL VOLUME 89.2 fl (80-96); MEAN PLT VOLUME 7.7 fl (7.5-11.1); NEUTROPHILS 66.5 % (42.8-82.8); PLATELET COUNT 215 K/MM3 (134-434); RDW 17.3 % (11.6-15.6); WHITE BLOOD COUNT 5.9 K/mm3 (4.0-10.0)
[2016-06-17 07:26] LABS: CALCIUM 7.8 mg/dL (8.5-10.1); CREATININE 0.5 mg/dL (0.55-1.02); MAGNESIUM 1.8 mg/dL (1.8-2.4); PHOSPHOROUS 2.3 mg/dL (2.5-4.9); URIC ACID 4.2 mg/dL (2.6-7.2)
[2016-06-17] MEDS ORDERED: PT OWN MED DRAWER 7, Y5N ONE (09:38)
[2016-06-17] MEDS: APIXABAN 2.5 MG TABLET PO SCH ×2 (09:46→21:19)
[2016-06-17] MEDS: DOCUSATE SODIUM 100 MG CAPSULE (FP) PO SCH (09:46)
[2016-06-17] MEDS: PANTOPRAZOLE 40 MG TABLET (FP) PO SCH (09:46)
[2016-06-17] MEDS: POLYETHYLENE GLYCOL 3350 119 GM BTL PO SCH ×2 (09:47→21:17)
[2016-06-17] MEDS: COLLAGENASE CLOSTRIDIUM HIST. 30 GRAMS TUBE TP SCH (09:47)
[2016-06-17] MEDS: GENTAMICIN SO4 0.1% TOPICAL OINTMENT 15 GM/TUBE TUBE TP SCH ×2 (09:47→21:19)
--- NOTE | 2016-06-17 11:33 | PN ---
Progress Note, Physician Chief Complaint: Ms Mei complains of foot pain, unchanged. Also says her mouth is dry and burning and has change in taste. No cp, sob, n/v. - Current Medication List Current Medications: Active Medications Acetaminophen (Tylenol -) 650 mg PO Q6H PRN PRN Reason: BACK PAIN Albuterol/Ipratropium (Duoneb -) 1 amp NEB Q6H PRN PRN Reason: WHEEZING Apixaban (Eliquis -) 2.5 mg PO BID [facility] Last Admin: 06/17/16 09:46 Dose: 2.5 mg Atorvastatin Calcium (Lipitor -) 10 mg PO HS [facility] Last Admin: 06/16/16 21:30 Dose: 10 mg Collagenase (Santyl -) 1 applic TP DAILY [facility] Last Admin: 06/17/16 09:47 Dose: 1 applic Docusate Sodium (Colace -) 100 mg PO DAILY [facility] Last Admin: 06/17/16 09:46 Dose: 100 mg Gentamicin Sulfate (Garamycin 0.1% Ointment -) 1 applic TP BID [facility] Last Admin: 06/17/16 09:47 Dose: Not Given Sodium Chloride (Normal Saline -) 1,000 mls @ 50 mls/hr IV ASDIR [facility] Last Admin: 06/17/16 01:57 Dose: Not Given Aztreonam 1 gm/ Dextrose 50 mls @ 100 mls/hr IVPB Q8H-IV [facility] PRN Reason: Protocol Last Admin: 06/17/16 09:45 Dose: 100 mls/hr Levothyroxine Sodium (Synthroid -) 100 mcg PO ACBK [facility] Last Admin: 06/17/16 06:14 Dose: 100 mcg Mirtazapine (Remeron -) 15 mg PO HS [facility] Last Admin: 06/16/16 21:30 Dose: 15 mg Nystatin (Nystatin Oral Suspension -) 500,000 units PO Q6HPO [facility] Ondansetron HCl (Zofran Injection) 4 mg IVPB Q6H PRN PRN Reason: NAUSEA Oxycodone HCl (Roxicodone -) 5 mg PO Q6H PRN PRN Reason: PAIN Pantoprazole Sodium (Protonix -) 40 mg PO DAILY [facility] Last Admin: 06/17/16 09:46 Dose: 40 mg Polyethylene Glycol (Miralax (For Daily Use) -) 17 gm PO BID [facility] Last Admin: 06/17/16 09:47 Dose: Not Given - Objective Vital Signs: Vital Signs Temperature 97.7 F 06/17/16 05:02 Pulse Rate 65 06/17/16 05:02 Respiratory Rate 18 06/17/16 05:02 Blood Pressure 113/51 06/17/16 05:02 O2 Sat by Pulse Oximetry (%) 100 06/16/16 20:23 Constitutional: Yes: Well Nourished, No Distress, Calm Cardiovascular: Yes: Regular Rate and Rhythm. No: Gallop, Murmur, Rub Respiratory: Yes: Regular, CTA Bilaterally. No: Rales, Rhonchi, Wheezes Gastrointestinal: Yes: Normal Bowel Sounds, Soft. No: Distention, Tenderness Extremities: Yes: WNL Edema: No Labs: CBC, BMP 06/17/16 06:00 06/17/16 06:00 Problem List - Problems (1) UTI (urinary tract infection) Code(s): N39.0 - URINARY TRACT INFECTION, SITE NOT SPECIFIED (2) Heel ulceration Code(s): L97.409 - NON-PRS CHRONIC ULCER OF UNSP HEEL AND MIDFOOT W UNSP SEVERT (3) Atrial fibrillation Code(s): I48.91 - UNSPECIFIED ATRIAL FIBRILLATION Qualifiers: Atrial fibrillation type: paroxysmal Qualified Code(s): I48.0 - Paroxysmal atrial fibrillation (4) Hypercholesteremia Code(s): E78.0 - PURE HYPERCHOLESTEROLEMIA * DO NOT USE * (5) Hypertension Code(s): I10 - ESSENTIAL (PRIMARY) HYPERTENSION Qualifiers: Hypertension type: essential hypertension Qualified Code(s): I10 - Essential (primary) hypertension (6) Hypothyroid Code(s): E03.9 - HYPOTHYROIDISM, UNSPECIFIED Qualifiers: Hypothyroidism type: unspecified Qualified Code(s): E03.9 - Hypothyroidism, unspecified (7) Thrush, oral Code(s): B37.0 - CANDIDAL STOMATITIS Assessment/Plan (1) UTI (urinary tract infection) Assessment/Plan: -urine cultures growing ESBL e. coli, same as last time -ID following and managing antibiotics Code(s): N39.0 - URINARY TRACT INFECTION, SITE NOT SPECIFIED (2) Heel ulceration Assessment/Plan: -appreciate wound care assistance -uric acid normal Code(s): L97.409 - NON-PRS CHRONIC ULCER OF UNSP HEEL AND MIDFOOT W UNSP SEVERT (3) Atrial fibrillation Assessment/Plan: -currently rate controlled -continue eliquis Code(s): I48.91 - UNSPECIFIED ATRIAL FIBRILLATION Qualifiers: Atrial fibrillation type: paroxysmal Qualified Code(s): I48.0 - Paroxysmal atrial fibrillation (4) Hypercholesteremia Assessment/Plan: -continue statin Code(s): E78.0 - PURE HYPERCHOLESTEROLEMIA * DO NOT USE * (5) Hypertension Assessment/Plan: -low normal Code(s): I10 - ESSENTIAL (PRIMARY) HYPERTENSION Qualifiers: Hypertension type: essential hypertension Qualified Code(s): I10 - Essential (primary) hypertension (6) Hypothyroid Assessment/Plan: -continue synthroid Code(s): E03.9 - HYPOTHYROIDISM, UNSPECIFIED Qualifiers: Hypothyroidism type: unspecified Qualified Code(s): E03.9 - Hypothyroidism, unspecified (7) Thrush -tongue red and beefy -will start nystatin swish and swallow
[2016-06-17] MEDS: NYSTATIN 500,000 UNITS/5 ML SUSPENSION PO SCH ×3 (13:13→23:00)
--- NOTE | 2016-06-17 14:50 | PN ---
Progress Note, Physician History of Present Illness: patient stable sitting in chair thrush on the tongue daughter in room pain in the leg - Current Medication List Current Medications: Active Medications Acetaminophen (Tylenol -) 650 mg PO Q6H PRN PRN Reason: BACK PAIN Albuterol/Ipratropium (Duoneb -) 1 amp NEB Q6H PRN PRN Reason: WHEEZING Apixaban (Eliquis -) 2.5 mg PO BID [facility] Last Admin: 06/17/16 09:46 Dose: 2.5 mg Atorvastatin Calcium (Lipitor -) 10 mg PO HS [facility] Last Admin: 06/16/16 21:30 Dose: 10 mg Collagenase (Santyl -) 1 applic TP DAILY [facility] Last Admin: 06/17/16 09:47 Dose: 1 applic Docusate Sodium (Colace -) 100 mg PO DAILY [facility] Last Admin: 06/17/16 09:46 Dose: 100 mg Gentamicin Sulfate (Garamycin 0.1% Ointment -) 1 applic TP BID [facility] Last Admin: 06/17/16 09:47 Dose: Not Given Sodium Chloride (Normal Saline -) 1,000 mls @ 50 mls/hr IV ASDIR [facility] Last Admin: 06/17/16 13:13 Dose: 50 mls/hr Aztreonam 1 gm/ Dextrose 50 mls @ 100 mls/hr IVPB Q8H-IV [facility] PRN Reason: Protocol Last Admin: 06/17/16 09:45 Dose: 100 mls/hr Levothyroxine Sodium (Synthroid -) 100 mcg PO ACBK [facility] Last Admin: 06/17/16 06:14 Dose: 100 mcg Mirtazapine (Remeron -) 15 mg PO HS [facility] Last Admin: 06/16/16 21:30 Dose: 15 mg Nystatin (Nystatin Oral Suspension -) 500,000 units PO Q6HPO [facility] Last Admin: 06/17/16 13:13 Dose: 500,000 units Ondansetron HCl (Zofran Injection) 4 mg IVPB Q6H PRN PRN Reason: NAUSEA Oxycodone HCl (Roxicodone -) 5 mg PO Q6H PRN PRN Reason: PAIN Pantoprazole Sodium (Protonix -) 40 mg PO DAILY [facility] Last Admin: 06/17/16 09:46 Dose: 40 mg Polyethylene Glycol (Miralax (For Daily Use) -) 17 gm PO BID [facility] Last Admin: 06/17/16 09:47 Dose: Not Given - Objective Vital Signs: Vital Signs Temperature 97.5 F L 06/17/16 10:00 Pulse Rate 65 06/17/16 10:00 Respiratory Rate 20 06/17/16 10:00 Blood Pressure 122/72 06/17/16 10:00 O2 Sat by Pulse Oximetry (%) 100 06/16/16 20:23 Constitutional: Yes: No Distress, Calm Cardiovascular: Yes: Regular Rate and Rhythm Respiratory: Yes: Regular, CTA Bilaterally Gastrointestinal: Yes: Normal Bowel Sounds, Soft Extremities: Yes: Other Labs: CBC, BMP 06/17/16 06:00 06/17/16 06:00 Assessment/Plan Problem List - Problems (1) UTI (urinary tract infection) Code(s): N39.0 - URINARY TRACT INFECTION, SITE NOT SPECIFIED (2) Heel ulceration Code(s): L97.409 - NON-PRS CHRONIC ULCER OF UNSP HEEL AND MIDFOOT W UNSP SEVERT (3) Atrial fibrillation Code(s): I48.91 - UNSPECIFIED ATRIAL FIBRILLATION Qualifiers: Atrial fibrillation type: paroxysmal Qualified Code(s): I48.0 - Paroxysmal atrial fibrillation (4) Hypercholesteremia Code(s): E78.0 - PURE HYPERCHOLESTEROLEMIA * DO NOT USE * (5) Hypertension Code(s): I10 - ESSENTIAL (PRIMARY) HYPERTENSION Qualifiers: Hypertension type: essential hypertension Qualified Code(s): I10 - Essential (primary) hypertension (6) Hypothyroid Code(s): E03.9 - HYPOTHYROIDISM, UNSPECIFIED Qualifiers: Hypothyroidism type: unspecified Qualified Code(s): E03.9 - Hypothyroidism, unspecified thrush plan continue current mgmt continue nystatin
[2016-06-17] MEDS: oxyCODONE HCL 5 MG TABLET PO PRN ×2 (17:15→23:58)
[2016-06-17] MEDS: MIRTAZAPINE 15 MG TABLET (FP) PO SCH (21:19)
[2016-06-17] MEDS: ATORVASTATIN CA 10 MG TABLET (FP) PO SCH (21:19)
[2016-06-18] MEDS: AZTREONAM 1 GM in DEXTROSE 5%-WATER - 50 ML IVPB SCH ×3 (02:09→17:58)
[2016-06-18] MEDS: NYSTATIN 500,000 UNITS/5 ML SUSPENSION PO SCH ×3 (06:35→18:03)
[2016-06-18] MEDS: LEVOTHYROXINE NA 100 MCG TABLET (FP) PO SCH (06:35)
[2016-06-18] MEDS: oxyCODONE HCL 5 MG TABLET PO PRN (06:44)
[2016-06-18 07:19] LABS: EOSINOPHIL 1.4 % (0-4.5); MCH 29.5 pg (25.7-33.7); MCHC 33.4 g/dl (32.0-36.0); MEAN CELL VOLUME 88.5 fl (80-96); MEAN PLT VOLUME 7.9 fl (7.5-11.1); NEUTROPHILS 57.7 % (42.8-82.8); PLATELET COUNT 214 K/MM3 (134-434); RDW 17.4 % (11.6-15.6); WHITE BLOOD COUNT 5.9 K/mm3 (4.0-10.0)
[2016-06-18 07:38] LABS: CALCIUM 7.6 mg/dL (8.5-10.1); CREATININE 0.5 mg/dL (0.55-1.02); MAGNESIUM 1.8 mg/dL (1.8-2.4); PHOSPHOROUS 1.9 mg/dL (2.5-4.9)
[2016-06-18] MEDS ORDERED: PT OWN MED DRAWER 7, Y5N ONE ×3 (09:29→20:21)
[2016-06-18] MEDS: DOCUSATE SODIUM 100 MG CAPSULE (FP) PO SCH (09:53)
[2016-06-18] MEDS: SODIUM CHLORIDE 1,000 ML IV SCH ×2 (09:53→23:50)
[2016-06-18] MEDS: PANTOPRAZOLE 40 MG TABLET (FP) PO SCH (09:53)
[2016-06-18] MEDS: APIXABAN 2.5 MG TABLET PO SCH ×2 (09:53→21:14)
[2016-06-18] MEDS: POLYETHYLENE GLYCOL 3350 119 GM BTL PO SCH ×2 (09:54→21:22)
[2016-06-18] MEDS ORDERED: POTASSIUM CHLORIDE TABS 20 MEQ TABLET.ER (FP) PO ONE (10:57)
--- NOTE | 2016-06-18 11:08 | PN ---
Progress Note, Physician Chief Complaint: Ms Mei says her foot pain is improved but still there. Is no longer having mouth pain. Denies cp, sob, n/v. - Current Medication List Current Medications: Active Medications Acetaminophen (Tylenol -) 650 mg PO Q6H PRN PRN Reason: BACK PAIN Albuterol/Ipratropium (Duoneb -) 1 amp NEB Q6H PRN PRN Reason: WHEEZING Apixaban (Eliquis -) 2.5 mg PO BID [facility] Last Admin: 06/18/16 09:53 Dose: 2.5 mg Atorvastatin Calcium (Lipitor -) 10 mg PO HS [facility] Last Admin: 06/17/16 21:19 Dose: 10 mg Collagenase (Santyl -) 1 applic TP DAILY [facility] Last Admin: 06/17/16 09:47 Dose: 1 applic Docusate Sodium (Colace -) 100 mg PO DAILY [facility] Last Admin: 06/18/16 09:53 Dose: 100 mg Gentamicin Sulfate (Garamycin 0.1% Ointment -) 1 applic TP BID [facility] Last Admin: 06/17/16 21:19 Dose: Not Given Sodium Chloride (Normal Saline -) 1,000 mls @ 50 mls/hr IV ASDIR [facility] Last Admin: 06/18/16 09:53 Dose: 50 mls/hr Aztreonam 1 gm/ Dextrose 50 mls @ 100 mls/hr IVPB Q8H-IV [facility] PRN Reason: Protocol Last Admin: 06/18/16 09:53 Dose: 100 mls/hr Levothyroxine Sodium (Synthroid -) 100 mcg PO ACBK [facility] Last Admin: 06/18/16 06:35 Dose: 100 mcg Mirtazapine (Remeron -) 15 mg PO HS [facility] Last Admin: 06/17/16 21:19 Dose: 15 mg Nystatin (Nystatin Oral Suspension -) 500,000 units PO Q6HPO [facility] Last Admin: 06/18/16 06:35 Dose: 500,000 units Ondansetron HCl (Zofran Injection) 4 mg IVPB Q6H PRN PRN Reason: NAUSEA Oxycodone HCl (Roxicodone -) 5 mg PO Q6H PRN PRN Reason: PAIN Last Admin: 06/18/16 06:44 Dose: 5 mg Pantoprazole Sodium (Protonix -) 40 mg PO DAILY [facility] Last Admin: 06/18/16 09:53 Dose: 40 mg Polyethylene Glycol (Miralax (For Daily Use) -) 17 gm PO BID [facility] Last Admin: 06/18/16 09:54 Dose: Not Given Potassium Chloride (K-Dur -) 40 meq PO ONCE ONE Stop: 06/18/16 10:58 Potassium Phos/Sodium Phos (Phos-Nak Packet -) 1 packet PO TID [facility] - Objective Vital Signs: Vital Signs Temperature 98.6 F 06/18/16 09:00 Pulse Rate 82 06/18/16 09:00 Respiratory Rate 18 06/18/16 09:00 Blood Pressure 117/64 06/18/16 09:00 O2 Sat by Pulse Oximetry (%) 100 06/17/16 21:00 Constitutional: Yes: Well Nourished, No Distress, Calm Cardiovascular: Yes: Regular Rate and Rhythm. No: Gallop, Murmur, Rub Respiratory: Yes: Regular, CTA Bilaterally. No: Rales, Rhonchi, Wheezes Gastrointestinal: Yes: Normal Bowel Sounds, Soft. No: Distention, Tenderness Extremities: Yes: Other (R heel ulcer) Edema: No Labs: CBC, BMP 06/18/16 06:00 06/18/16 06:00 Problem List - Problems (1) UTI (urinary tract infection) Code(s): N39.0 - URINARY TRACT INFECTION, SITE NOT SPECIFIED (2) Heel ulceration Code(s): L97.409 - NON-PRS CHRONIC ULCER OF UNSP HEEL AND MIDFOOT W UNSP SEVERT (3) Atrial fibrillation Code(s): I48.91 - UNSPECIFIED ATRIAL FIBRILLATION Qualifiers: Atrial fibrillation type: paroxysmal Qualified Code(s): I48.0 - Paroxysmal atrial fibrillation (4) Hypercholesteremia Code(s): E78.0 - PURE HYPERCHOLESTEROLEMIA * DO NOT USE * (5) Hypertension Code(s): I10 - ESSENTIAL (PRIMARY) HYPERTENSION Qualifiers: Hypertension type: essential hypertension Qualified Code(s): I10 - Essential (primary) hypertension (6) Hypothyroid Code(s): E03.9 - HYPOTHYROIDISM, UNSPECIFIED Qualifiers: Hypothyroidism type: unspecified Qualified Code(s): E03.9 - Hypothyroidism, unspecified (7) Thrush, oral Code(s): B37.0 - CANDIDAL STOMATITIS Assessment/Plan (1) UTI (urinary tract infection) Assessment/Plan: -urine cultures growing ESBL e. coli, same as last time -ID following and managing antibiotics Code(s): N39.0 - URINARY TRACT INFECTION, SITE NOT SPECIFIED (2) Heel ulceration Assessment/Plan: -wound culture also growing ESBL e. coli -antibiotics per ID Code(s): L97.409 - NON-PRS CHRONIC ULCER OF UNSP HEEL AND MIDFOOT W UNSP SEVERT (3) Atrial fibrillation Assessment/Plan: -currently rate controlled -continue eliquis Code(s): I48.91 - UNSPECIFIED ATRIAL FIBRILLATION Qualifiers: Atrial fibrillation type: paroxysmal Qualified Code(s): I48.0 - Paroxysmal atrial fibrillation (4) Hypercholesteremia Assessment/Plan: -continue statin Code(s): E78.0 - PURE HYPERCHOLESTEROLEMIA * DO NOT USE * (5) Hypertension Assessment/Plan: -low normal Code(s): I10 - ESSENTIAL (PRIMARY) HYPERTENSION Qualifiers: Hypertension type: essential hypertension Qualified Code(s): I10 - Essential (primary) hypertension (6) Hypothyroid Assessment/Plan: -continue synthroid Code(s): E03.9 - HYPOTHYROIDISM, UNSPECIFIED Qualifiers: Hypothyroidism type: unspecified Qualified Code(s): E03.9 - Hypothyroidism, unspecified (7) Thrush -nystatin swish and swallow day 2
[2016-06-18] MEDS: NAPH,MB-DB/K PH,MBDB POWDER PACKET PO SCH ×2 (14:19→21:17)
[2016-06-18] MEDS: COLLAGENASE CLOSTRIDIUM HIST. 30 GRAMS TUBE TP SCH (14:19)
[2016-06-18] MEDS: GENTAMICIN SO4 0.1% TOPICAL OINTMENT 15 GM/TUBE TUBE TP SCH (14:20)
--- NOTE | 2016-06-18 14:30 | PN ---
Progress Note, Physician History of Present Illness: doing well no issues wound healing well - Current Medication List Current Medications: Active Medications Acetaminophen (Tylenol -) 650 mg PO Q6H PRN PRN Reason: BACK PAIN Albuterol/Ipratropium (Duoneb -) 1 amp NEB Q6H PRN PRN Reason: WHEEZING Apixaban (Eliquis -) 2.5 mg PO BID [facility] Last Admin: 06/18/16 09:53 Dose: 2.5 mg Atorvastatin Calcium (Lipitor -) 10 mg PO HS [facility] Last Admin: 06/17/16 21:19 Dose: 10 mg Collagenase (Santyl -) 1 applic TP DAILY [facility] Last Admin: 06/18/16 14:19 Dose: 1 applic Docusate Sodium (Colace -) 100 mg PO DAILY [facility] Last Admin: 06/18/16 09:53 Dose: 100 mg Gentamicin Sulfate (Garamycin 0.1% Ointment -) 1 applic TP BID [facility] Last Admin: 06/18/16 14:20 Dose: Not Given Sodium Chloride (Normal Saline -) 1,000 mls @ 50 mls/hr IV ASDIR [facility] Last Admin: 06/18/16 09:53 Dose: 50 mls/hr Aztreonam 1 gm/ Dextrose 50 mls @ 100 mls/hr IVPB Q8H-IV [facility] PRN Reason: Protocol Last Admin: 06/18/16 09:53 Dose: 100 mls/hr Levothyroxine Sodium (Synthroid -) 100 mcg PO ACBK [facility] Last Admin: 06/18/16 06:35 Dose: 100 mcg Mirtazapine (Remeron -) 15 mg PO HS [facility] Last Admin: 06/17/16 21:19 Dose: 15 mg Nystatin (Nystatin Oral Suspension -) 500,000 units PO Q6HPO [facility] Last Admin: 06/18/16 12:12 Dose: 500,000 units Ondansetron HCl (Zofran Injection) 4 mg IVPB Q6H PRN PRN Reason: NAUSEA Oxycodone HCl (Roxicodone -) 5 mg PO Q6H PRN PRN Reason: PAIN Last Admin: 06/18/16 06:44 Dose: 5 mg Pantoprazole Sodium (Protonix -) 40 mg PO DAILY [facility] Last Admin: 06/18/16 09:53 Dose: 40 mg Polyethylene Glycol (Miralax (For Daily Use) -) 17 gm PO BID [facility] Last Admin: 06/18/16 09:54 Dose: Not Given Potassium Phos/Sodium Phos (Phos-Nak Packet -) 1 packet PO TID [facility] Last Admin: 06/18/16 14:19 Dose: 1 packet - Objective Vital Signs: Vital Signs Temperature 98.6 F 06/18/16 09:00 Pulse Rate 82 06/18/16 09:00 Respiratory Rate 18 06/18/16 09:00 Blood Pressure 117/64 06/18/16 09:00 O2 Sat by Pulse Oximetry (%) 100 06/17/16 21:00 Constitutional: Yes: No Distress, Calm Cardiovascular: Yes: Regular Rate and Rhythm Respiratory: Yes: Regular Gastrointestinal: Yes: Normal Bowel Sounds, Soft Musculoskeletal: Yes: Other Extremities: Yes: Other Wound/Incision: Yes: Clean/Dry Neurological: Yes: Alert, Oriented Psychiatric: Yes: Alert Labs: CBC, BMP 06/18/16 06:00 06/18/16 06:00 Assessment/Plan Problem List - Problems (1) UTI (urinary tract infection) Code(s): N39.0 - URINARY TRACT INFECTION, SITE NOT SPECIFIED (2) Heel ulceration Code(s): L97.409 - NON-PRS CHRONIC ULCER OF UNSP HEEL AND MIDFOOT W UNSP SEVERT (3) Atrial fibrillation Code(s): I48.91 - UNSPECIFIED ATRIAL FIBRILLATION Qualifiers: Atrial fibrillation type: paroxysmal Qualified Code(s): I48.0 - Paroxysmal atrial fibrillation (4) Hypercholesteremia Code(s): E78.0 - PURE HYPERCHOLESTEROLEMIA * DO NOT USE * (5) Hypertension Code(s): I10 - ESSENTIAL (PRIMARY) HYPERTENSION Qualifiers: Hypertension type: essential hypertension Qualified Code(s): I10 - Essential (primary) hypertension (6) Hypothyroid Code(s): E03.9 - HYPOTHYROIDISM, UNSPECIFIED Qualifiers: Hypothyroidism type: unspecified Qualified Code(s): E03.9 - Hypothyroidism, unspecified thrush plan continue current mgmt continue nystatin continue abx wound care
[2016-06-18] MEDS: MIRTAZAPINE 15 MG TABLET (FP) PO SCH (21:14)
[2016-06-18] MEDS: ATORVASTATIN CA 10 MG TABLET (FP) PO SCH (21:14)
[2016-06-19] MEDS: GENTAMICIN SO4 0.1% TOPICAL OINTMENT 15 GM/TUBE TUBE TP SCH ×3 (00:41→22:21)
[2016-06-19] MEDS: NYSTATIN 500,000 UNITS/5 ML SUSPENSION PO SCH ×4 (00:56→17:44)
[2016-06-19] MEDS ORDERED: PT OWN MED DRAWER 7, Y5N ONE ×4 (02:06→22:17)
[2016-06-19] MEDS: AZTREONAM 1 GM in DEXTROSE 5%-WATER - 50 ML IVPB SCH ×6 (02:22→18:20)
[2016-06-19] MEDS: LEVOTHYROXINE NA 100 MCG TABLET (FP) PO SCH (06:26)
[2016-06-19] MEDS: NAPH,MB-DB/K PH,MBDB POWDER PACKET PO SCH ×3 (06:26→22:21)
[2016-06-19] MEDS: SODIUM CHLORIDE 1,000 ML IV SCH (06:29)
[2016-06-19 07:48] LABS: BASOPHIL 1.3 % (0-2.0); EOSINOPHIL 1.6 % (0-4.5); MCH 29.2 pg (25.7-33.7); MCHC 32.8 g/dl (32.0-36.0); MEAN CELL VOLUME 89.1 fl (80-96); NEUTROPHILS 51.6 % (42.8-82.8); PLATELET COUNT 228 K/MM3 (134-434); RDW 17.7 % (11.6-15.6); WHITE BLOOD COUNT 5.6 K/mm3 (4.0-10.0)
[2016-06-19 08:19] LABS: CALCIUM 7.4 mg/dL (8.5-10.1); CREATININE 0.5 mg/dL (0.55-1.02); MAGNESIUM 1.7 mg/dL (1.8-2.4); PHOSPHOROUS 2.1 mg/dL (2.5-4.9)
[2016-06-19] MEDS: APIXABAN 2.5 MG TABLET PO SCH ×2 (10:23→22:21)
[2016-06-19] MEDS: PANTOPRAZOLE 40 MG TABLET (FP) PO SCH (10:23)
[2016-06-19] MEDS: DOCUSATE SODIUM 100 MG CAPSULE (FP) PO SCH (10:23)
[2016-06-19] MEDS: POLYETHYLENE GLYCOL 3350 119 GM BTL PO SCH ×3 (10:24→22:28)
--- NOTE | 2016-06-19 12:29 | PN ---
Progress Note, Physician Chief Complaint: Ms Mei still has foot pain. No cp, sob, n/v. - Current Medication List Current Medications: Active Medications Acetaminophen (Tylenol -) 650 mg PO Q6H PRN PRN Reason: BACK PAIN Albuterol/Ipratropium (Duoneb -) 1 amp NEB Q6H PRN PRN Reason: WHEEZING Apixaban (Eliquis -) 2.5 mg PO BID [facility] Last Admin: 06/19/16 10:23 Dose: 2.5 mg Atorvastatin Calcium (Lipitor -) 10 mg PO HS [facility] Last Admin: 06/18/16 21:14 Dose: 10 mg Collagenase (Santyl -) 1 applic TP DAILY [facility] Last Admin: 06/18/16 14:19 Dose: 1 applic Docusate Sodium (Colace -) 100 mg PO DAILY [facility] Last Admin: 06/19/16 10:23 Dose: 100 mg Gentamicin Sulfate (Garamycin 0.1% Ointment -) 1 applic TP BID [facility] Last Admin: 06/19/16 10:24 Dose: Not Given Aztreonam 1 gm/ Dextrose 50 mls @ 100 mls/hr IVPB Q8H-IV [facility] PRN Reason: Protocol Last Admin: 06/19/16 10:23 Dose: 100 mls/hr Levothyroxine Sodium (Synthroid -) 100 mcg PO ACBK [facility] Last Admin: 06/19/16 06:26 Dose: 100 mcg Magnesium Oxide (Mag-Ox -) 400 mg PO BID [facility] Mirtazapine (Remeron -) 15 mg PO HS [facility] Last Admin: 06/18/16 21:14 Dose: 15 mg Nystatin (Nystatin Oral Suspension -) 500,000 units PO Q6HPO [facility] Last Admin: 06/19/16 06:26 Dose: 500,000 units Ondansetron HCl (Zofran Injection) 4 mg IVPB Q6H PRN PRN Reason: NAUSEA Oxycodone HCl (Roxicodone -) 5 mg PO Q6H PRN PRN Reason: PAIN Last Admin: 06/18/16 06:44 Dose: 5 mg Pantoprazole Sodium (Protonix -) 40 mg PO DAILY [facility] Last Admin: 06/19/16 10:23 Dose: Not Given Polyethylene Glycol (Miralax (For Daily Use) -) 17 gm PO BID [facility] Last Admin: 06/19/16 10:24 Dose: Not Given Potassium Phos/Sodium Phos (Phos-Nak Packet -) 1 packet PO TID [facility] Last Admin: 06/19/16 06:26 Dose: 1 packet - Objective Vital Signs: Vital Signs Temperature 97.4 F L 06/19/16 09:42 Pulse Rate 71 06/19/16 09:42 Respiratory Rate 20 06/19/16 09:42 Blood Pressure 112/63 06/19/16 09:42 O2 Sat by Pulse Oximetry (%) 98 06/19/16 09:00 Constitutional: Yes: Well Nourished, No Distress, Calm Cardiovascular: Yes: Regular Rate and Rhythm. No: Gallop, Murmur, Rub Respiratory: Yes: Regular, CTA Bilaterally. No: Rales, Rhonchi, Wheezes Gastrointestinal: Yes: Normal Bowel Sounds, Soft. No: Distention, Tenderness Extremities: Yes: Other (heel ulcer) Edema: No Labs: CBC, BMP 06/19/16 06:50 06/19/16 06:50 Problem List - Problems (1) UTI (urinary tract infection) Code(s): N39.0 - URINARY TRACT INFECTION, SITE NOT SPECIFIED (2) Heel ulceration Code(s): L97.409 - NON-PRS CHRONIC ULCER OF UNSP HEEL AND MIDFOOT W UNSP SEVERT (3) Atrial fibrillation Code(s): I48.91 - UNSPECIFIED ATRIAL FIBRILLATION Qualifiers: Atrial fibrillation type: paroxysmal Qualified Code(s): I48.0 - Paroxysmal atrial fibrillation (4) Hypercholesteremia Code(s): E78.0 - PURE HYPERCHOLESTEROLEMIA * DO NOT USE * (5) Hypertension Code(s): I10 - ESSENTIAL (PRIMARY) HYPERTENSION Qualifiers: Hypertension type: essential hypertension Qualified Code(s): I10 - Essential (primary) hypertension (6) Hypothyroid Code(s): E03.9 - HYPOTHYROIDISM, UNSPECIFIED Qualifiers: Hypothyroidism type: unspecified Qualified Code(s): E03.9 - Hypothyroidism, unspecified (7) Thrush, oral Code(s): B37.0 - CANDIDAL STOMATITIS Assessment/Plan (1) UTI (urinary tract infection) Assessment/Plan: -urine cultures growing ESBL e. coli, same as last time -ID following and managing antibiotics Code(s): N39.0 - URINARY TRACT INFECTION, SITE NOT SPECIFIED (2) Heel ulceration Assessment/Plan: -wound culture also growing ESBL e. coli -antibiotics per ID Code(s): L97.409 - NON-PRS CHRONIC ULCER OF UNSP HEEL AND MIDFOOT W UNSP SEVERT (3) Atrial fibrillation Assessment/Plan: -currently rate controlled -continue eliquis Code(s): I48.91 - UNSPECIFIED ATRIAL FIBRILLATION Qualifiers: Atrial fibrillation type: paroxysmal Qualified Code(s): I48.0 - Paroxysmal atrial fibrillation (4) Hypercholesteremia Assessment/Plan: -continue statin Code(s): E78.0 - PURE HYPERCHOLESTEROLEMIA * DO NOT USE * (5) Hypertension Assessment/Plan: -well controlled Code(s): I10 - ESSENTIAL (PRIMARY) HYPERTENSION Qualifiers: Hypertension type: essential hypertension Qualified Code(s): I10 - Essential (primary) hypertension (6) Hypothyroid Assessment/Plan: -continue synthroid Code(s): E03.9 - HYPOTHYROIDISM, UNSPECIFIED Qualifiers: Hypothyroidism type: unspecified Qualified Code(s): E03.9 - Hypothyroidism, unspecified (7) Thrush -nystatin swish and swallow day 3
[2016-06-19] MEDS: MAGNESIUM OXIDE 400 MG TABLET (FP) PO SCH ×2 (14:07→22:21)
[2016-06-19] MEDS: oxyCODONE HCL 5 MG TABLET PO PRN (14:56)
[2016-06-19] MEDS: COLLAGENASE CLOSTRIDIUM HIST. 30 GRAMS TUBE TP SCH (14:58)
--- NOTE | 2016-06-19 15:27 | PN ---
Progress Note, Physician History of Present Illness: main issue pain in the leg still unsteady - Current Medication List Current Medications: Active Medications Acetaminophen (Tylenol -) 650 mg PO Q6H PRN PRN Reason: BACK PAIN Albuterol/Ipratropium (Duoneb -) 1 amp NEB Q6H PRN PRN Reason: WHEEZING Apixaban (Eliquis -) 2.5 mg PO BID [facility] Last Admin: 06/19/16 10:23 Dose: 2.5 mg Atorvastatin Calcium (Lipitor -) 10 mg PO HS [facility] Last Admin: 06/18/16 21:14 Dose: 10 mg Collagenase (Santyl -) 1 applic TP DAILY [facility] Last Admin: 06/19/16 14:58 Dose: 1 applic Docusate Sodium (Colace -) 100 mg PO DAILY [facility] Last Admin: 06/19/16 10:23 Dose: 100 mg Gentamicin Sulfate (Garamycin 0.1% Ointment -) 1 applic TP BID [facility] Last Admin: 06/19/16 10:24 Dose: Not Given Aztreonam 1 gm/ Dextrose 50 mls @ 100 mls/hr IVPB Q8H-IV [facility] PRN Reason: Protocol Last Admin: 06/19/16 10:23 Dose: 100 mls/hr Levothyroxine Sodium (Synthroid -) 100 mcg PO ACBK [facility] Last Admin: 06/19/16 06:26 Dose: 100 mcg Magnesium Oxide (Mag-Ox -) 400 mg PO BID [facility] Last Admin: 06/19/16 14:07 Dose: 400 mg Mirtazapine (Remeron -) 15 mg PO HS [facility] Last Admin: 06/18/16 21:14 Dose: 15 mg Nystatin (Nystatin Oral Suspension -) 500,000 units PO Q6HPO [facility] Last Admin: 06/19/16 12:50 Dose: 500,000 units Ondansetron HCl (Zofran Injection) 4 mg IVPB Q6H PRN PRN Reason: NAUSEA Oxycodone HCl (Roxicodone -) 5 mg PO Q6H PRN PRN Reason: PAIN Last Admin: 06/19/16 14:56 Dose: 5 mg Pantoprazole Sodium (Protonix -) 40 mg PO DAILY [facility] Last Admin: 06/19/16 10:23 Dose: Not Given Polyethylene Glycol (Miralax (For Daily Use) -) 17 gm PO BID [facility] Last Admin: 06/19/16 10:24 Dose: Not Given Potassium Phos/Sodium Phos (Phos-Nak Packet -) 1 packet PO TID [facility] Last Admin: 06/19/16 14:07 Dose: 1 packet - Objective Vital Signs: Vital Signs Temperature 97.4 F L 06/19/16 09:42 Pulse Rate 71 06/19/16 09:42 Respiratory Rate 20 06/19/16 09:42 Blood Pressure 112/63 06/19/16 09:42 O2 Sat by Pulse Oximetry (%) 98 06/19/16 09:00 Constitutional: Yes: No Distress, Calm Cardiovascular: Yes: Regular Rate and Rhythm Respiratory: Yes: Regular, CTA Bilaterally Gastrointestinal: Yes: Normal Bowel Sounds, Soft Musculoskeletal: Yes: Other Extremities: Yes: Other Integumentary: Yes: Other Wound/Incision: Yes: Clean/Dry Neurological: Yes: Alert, Oriented Psychiatric: Yes: Alert Labs: CBC, BMP 06/19/16 06:50 06/19/16 06:50 Assessment/Plan Problem List - Problems (1) UTI (urinary tract infection) Code(s): N39.0 - URINARY TRACT INFECTION, SITE NOT SPECIFIED (2) Heel ulceration Code(s): L97.409 - NON-PRS CHRONIC ULCER OF UNSP HEEL AND MIDFOOT W UNSP SEVERT (3) Atrial fibrillation Code(s): I48.91 - UNSPECIFIED ATRIAL FIBRILLATION Qualifiers: Atrial fibrillation type: paroxysmal Qualified Code(s): I48.0 - Paroxysmal atrial fibrillation (4) Hypercholesteremia Code(s): E78.0 - PURE HYPERCHOLESTEROLEMIA * DO NOT USE * (5) Hypertension Code(s): I10 - ESSENTIAL (PRIMARY) HYPERTENSION Qualifiers: Hypertension type: essential hypertension Qualified Code(s): I10 - Essential (primary) hypertension (6) Hypothyroid Code(s): E03.9 - HYPOTHYROIDISM, UNSPECIFIED Qualifiers: Hypothyroidism type: unspecified Qualified Code(s): E03.9 - Hypothyroidism, unspecified (7) Thrush, oral Code(s): B37.0 - CANDIDAL STOMATITIS plan continue current mgmt continue nystatin continue abx wound care physiotherapy
[2016-06-19] MEDS: ATORVASTATIN CA 10 MG TABLET (FP) PO SCH (22:21)
[2016-06-19] MEDS: MIRTAZAPINE 15 MG TABLET (FP) PO SCH (22:21)
[2016-06-20] MEDS: NYSTATIN 500,000 UNITS/5 ML SUSPENSION PO SCH ×5 (00:27→23:12)
[2016-06-20] MEDS ORDERED: PT OWN MED DRAWER 7, Y5N ONE ×3 (02:12→16:50)
[2016-06-20] MEDS: AZTREONAM 1 GM in DEXTROSE 5%-WATER - 50 ML IVPB SCH ×2 (02:31→09:50)
[2016-06-20] MEDS: LEVOTHYROXINE NA 100 MCG TABLET (FP) PO SCH (06:16)
[2016-06-20] MEDS: NAPH,MB-DB/K PH,MBDB POWDER PACKET PO SCH ×3 (06:16→22:22)
[2016-06-20 07:18] LABS: BASOPHIL 1.4 % (0-2.0); EOSINOPHIL 2.3 % (0-4.5); MCH 29.3 pg (25.7-33.7); MEAN CELL VOLUME 88.6 fl (80-96); MEAN PLT VOLUME 7.8 fl (7.5-11.1); PLATELET COUNT 219 K/MM3 (134-434); RDW 17.5 % (11.6-15.6)
[2016-06-20 07:34] LABS: CALCIUM 7.9 mg/dL (8.5-10.1); CREATININE 0.5 mg/dL (0.55-1.02); MAGNESIUM 1.8 mg/dL (1.8-2.4); PHOSPHOROUS 2.3 mg/dL (2.5-4.9)
[2016-06-20] MEDS: DOCUSATE SODIUM 100 MG CAPSULE (FP) PO SCH (09:51)
[2016-06-20] MEDS: GENTAMICIN SO4 0.1% TOPICAL OINTMENT 15 GM/TUBE TUBE TP SCH ×2 (09:51→22:19)
[2016-06-20] MEDS: APIXABAN 2.5 MG TABLET PO SCH ×2 (09:51→22:19)
[2016-06-20] MEDS: MAGNESIUM OXIDE 400 MG TABLET (FP) PO SCH ×2 (09:51→22:19)
[2016-06-20] MEDS: PANTOPRAZOLE 40 MG TABLET (FP) PO SCH (09:52)
[2016-06-20] MEDS: POLYETHYLENE GLYCOL 3350 119 GM BTL PO SCH ×2 (09:55→22:25)
--- NOTE | 2016-06-20 13:37 | PN ---
Progress Note, Physician History of Present Illness: main issue pain in the leg main issue - Current Medication List Current Medications: Active Medications Acetaminophen (Tylenol -) 650 mg PO Q6H PRN PRN Reason: BACK PAIN Albuterol/Ipratropium (Duoneb -) 1 amp NEB Q6H PRN PRN Reason: WHEEZING Apixaban (Eliquis -) 2.5 mg PO BID [facility] Last Admin: 06/20/16 09:51 Dose: 2.5 mg Atorvastatin Calcium (Lipitor -) 10 mg PO HS [facility] Last Admin: 06/19/16 22:21 Dose: 10 mg Collagenase (Santyl -) 1 applic TP DAILY [facility] Last Admin: 06/19/16 14:58 Dose: 1 applic Docusate Sodium (Colace -) 100 mg PO DAILY [facility] Last Admin: 06/20/16 09:51 Dose: 100 mg Gentamicin Sulfate (Garamycin 0.1% Ointment -) 1 applic TP BID [facility] Last Admin: 06/20/16 09:51 Dose: Not Given Aztreonam 1 gm/ Dextrose 50 mls @ 100 mls/hr IVPB Q8H-IV [facility] PRN Reason: Protocol Last Admin: 06/20/16 09:50 Dose: 100 mls/hr Levothyroxine Sodium (Synthroid -) 100 mcg PO ACBK [facility] Last Admin: 06/20/16 06:16 Dose: 100 mcg Magnesium Oxide (Mag-Ox -) 400 mg PO BID [facility] Last Admin: 06/20/16 09:51 Dose: 400 mg Mirtazapine (Remeron -) 15 mg PO HS [facility] Last Admin: 06/19/16 22:21 Dose: 15 mg Nystatin (Nystatin Oral Suspension -) 500,000 units PO Q6HPO [facility] Last Admin: 06/20/16 06:16 Dose: 500,000 units Ondansetron HCl (Zofran Injection) 4 mg IVPB Q6H PRN PRN Reason: NAUSEA Oxycodone HCl (Roxicodone -) 5 mg PO Q6H PRN PRN Reason: PAIN Last Admin: 06/19/16 14:56 Dose: 5 mg Pantoprazole Sodium (Protonix -) 40 mg PO DAILY [facility] Last Admin: 06/20/16 09:52 Dose: 40 mg Polyethylene Glycol (Miralax (For Daily Use) -) 17 gm PO BID [facility] Last Admin: 06/20/16 09:55 Dose: 17 gm Potassium Phos/Sodium Phos (Phos-Nak Packet -) 1 packet PO TID [facility] Last Admin: 06/20/16 06:16 Dose: 1 packet - Objective Vital Signs: Vital Signs Temperature 97.9 F 06/20/16 08:41 Pulse Rate 64 06/20/16 08:41 Respiratory Rate 18 06/20/16 08:41 Blood Pressure 113/60 06/20/16 08:41 O2 Sat by Pulse Oximetry (%) 100 06/20/16 08:42 Constitutional: Yes: Calm, Mild Distress Cardiovascular: Yes: Regular Rate and Rhythm Respiratory: Yes: Regular, CTA Bilaterally Gastrointestinal: Yes: Normal Bowel Sounds, Soft Musculoskeletal: Yes: WNL Extremities: Yes: Other (wound healing well) Wound/Incision: Yes: Clean/Dry, Dressing Dry and Intact Neurological: Yes: Alert, Oriented Psychiatric: Yes: Alert, Oriented Labs: CBC, BMP 06/20/16 06:00 06/20/16 06:00 Assessment/Plan Problem List - Problems (1) UTI (urinary tract infection) Code(s): N39.0 - URINARY TRACT INFECTION, SITE NOT SPECIFIED (2) Heel ulceration Code(s): L97.409 - NON-PRS CHRONIC ULCER OF UNSP HEEL AND MIDFOOT W UNSP SEVERT (3) Atrial fibrillation Code(s): I48.91 - UNSPECIFIED ATRIAL FIBRILLATION Qualifiers: Atrial fibrillation type: paroxysmal Qualified Code(s): I48.0 - Paroxysmal atrial fibrillation (4) Hypercholesteremia Code(s): E78.0 - PURE HYPERCHOLESTEROLEMIA * DO NOT USE * (5) Hypertension Code(s): I10 - ESSENTIAL (PRIMARY) HYPERTENSION Qualifiers: Hypertension type: essential hypertension Qualified Code(s): I10 - Essential (primary) hypertension (6) Hypothyroid Code(s): E03.9 - HYPOTHYROIDISM, UNSPECIFIED Qualifiers: Hypothyroidism type: unspecified Qualified Code(s): E03.9 - Hypothyroidism, unspecified (7) Thrush, oral Code(s): B37.0 - CANDIDAL STOMATITIS plan continue current mgmt continue nystatin patients wound and urine showing esbl stopped aztreonam started patient on ertapenam
[2016-06-20] MEDS: oxyCODONE HCL 5 MG TABLET PO PRN ×2 (14:26→22:20)
[2016-06-20] MEDS: ERTAPENEM SODIUM 1 GM in SODIUM CHLORIDE 50 ML IVPB SCH (18:42)
[2016-06-20] MEDS: COLLAGENASE CLOSTRIDIUM HIST. 30 GRAMS TUBE TP SCH (18:43)
[2016-06-20] MEDS: ATORVASTATIN CA 10 MG TABLET (FP) PO SCH (22:19)
[2016-06-20] MEDS: MIRTAZAPINE 15 MG TABLET (FP) PO SCH (22:23)
[2016-06-21] MEDS: NYSTATIN 500,000 UNITS/5 ML SUSPENSION PO SCH ×3 (06:42→18:57)
[2016-06-21] MEDS: LEVOTHYROXINE NA 100 MCG TABLET (FP) PO SCH (06:42)
[2016-06-21] MEDS: NAPH,MB-DB/K PH,MBDB POWDER PACKET PO SCH ×3 (06:42→22:51)
[2016-06-21] MEDS ORDERED: PT OWN MED DRAWER 7, Y5N ONE ×2 (09:10→22:11)
[2016-06-21] MEDS: PANTOPRAZOLE 40 MG TABLET (FP) PO SCH (09:34)
[2016-06-21] MEDS: DOCUSATE SODIUM 100 MG CAPSULE (FP) PO SCH (09:34)
[2016-06-21] MEDS: ERTAPENEM SODIUM 1 GM in SODIUM CHLORIDE 50 ML IVPB SCH (09:34)
[2016-06-21] MEDS: MAGNESIUM OXIDE 400 MG TABLET (FP) PO SCH ×2 (09:35→22:50)
[2016-06-21] MEDS: APIXABAN 2.5 MG TABLET PO SCH ×2 (09:35→22:51)
[2016-06-21] MEDS: COLLAGENASE CLOSTRIDIUM HIST. 30 GRAMS TUBE TP SCH (09:35)
[2016-06-21] MEDS: POLYETHYLENE GLYCOL 3350 119 GM BTL PO SCH ×2 (09:36→22:50)
[2016-06-21] MEDS: oxyCODONE HCL 5 MG TABLET PO PRN (13:46)
--- NOTE | 2016-06-21 14:42 | PN ---
Progress Note, Physician Chief Complaint: Ms Mei says she is still with foot pain. States she is unable to stand on it. Clarified, she says that she was able to stand [facility] at the [facility] but not here. No trauma to the foot. No cp, sob, n/v. - Current Medication List Current Medications: Active Medications Acetaminophen (Tylenol -) 650 mg PO Q6H PRN PRN Reason: BACK PAIN Albuterol/Ipratropium (Duoneb -) 1 amp NEB Q6H PRN PRN Reason: WHEEZING Apixaban (Eliquis -) 2.5 mg PO BID [facility] Last Admin: 06/21/16 09:35 Dose: 2.5 mg Atorvastatin Calcium (Lipitor -) 10 mg PO HS [facility] Last Admin: 06/20/16 22:19 Dose: 10 mg Collagenase (Santyl -) 1 applic TP DAILY [facility] Last Admin: 06/21/16 09:35 Dose: 1 applic Docusate Sodium (Colace -) 100 mg PO DAILY [facility] Last Admin: 06/21/16 09:34 Dose: 100 mg Gentamicin Sulfate (Garamycin 0.1% Ointment -) 1 applic TP BID [facility] Last Admin: 06/20/16 22:19 Dose: Not Given Ertapenem 1 gm/ Sodium (Chloride) 50 mls @ 50 mls/hr IVPB DAILY [facility] PRN Reason: Protocol Last Admin: 06/21/16 09:34 Dose: 50 mls/hr Levothyroxine Sodium (Synthroid -) 100 mcg PO ACBK [facility] Last Admin: 06/21/16 06:42 Dose: 100 mcg Magnesium Oxide (Mag-Ox -) 400 mg PO BID [facility] Last Admin: 06/21/16 09:35 Dose: 400 mg Mirtazapine (Remeron -) 15 mg PO HS [facility] Last Admin: 06/20/16 22:23 Dose: 15 mg Nystatin (Nystatin Oral Suspension -) 500,000 units PO Q6HPO [facility] Last Admin: 06/21/16 13:46 Dose: 500,000 units Ondansetron HCl (Zofran Injection) 4 mg IVPB Q6H PRN PRN Reason: NAUSEA Oxycodone HCl (Roxicodone -) 5 mg PO Q6H PRN PRN Reason: PAIN Last Admin: 06/21/16 13:46 Dose: 5 mg Pantoprazole Sodium (Protonix -) 40 mg PO DAILY [facility] Last Admin: 06/21/16 09:34 Dose: 40 mg Polyethylene Glycol (Miralax (For Daily Use) -) 17 gm PO BID [facility] Last Admin: 06/21/16 09:36 Dose: 17 gm Potassium Phos/Sodium Phos (Phos-Nak Packet -) 1 packet PO TID [facility] Last Admin: 06/21/16 13:47 Dose: 1 packet - Objective Vital Signs: Vital Signs Temperature 97.6 F 06/21/16 09:33 Pulse Rate 69 06/21/16 09:33 Respiratory Rate 18 06/21/16 09:33 Blood Pressure 114/61 06/21/16 09:33 O2 Sat by Pulse Oximetry (%) 100 06/20/16 20:57 Constitutional: Yes: Well Nourished, No Distress, Calm Cardiovascular: Yes: Pulse Irregular. No: Gallop, Murmur, Rub Respiratory: Yes: Regular, CTA Bilaterally. No: Rales, Rhonchi, Wheezes Gastrointestinal: Yes: Normal Bowel Sounds, Soft. No: Distention, Tenderness Extremities: Yes: Other (R foot wrapped) Edema: No Labs: CBC, BMP 06/20/16 06:00 06/20/16 06:00 Problem List - Problems (1) UTI (urinary tract infection) Code(s): N39.0 - URINARY TRACT INFECTION, SITE NOT SPECIFIED (2) Heel ulceration Code(s): L97.409 - NON-PRS CHRONIC ULCER OF UNSP HEEL AND MIDFOOT W UNSP SEVERT (3) Atrial fibrillation Code(s): I48.91 - UNSPECIFIED ATRIAL FIBRILLATION Qualifiers: Atrial fibrillation type: paroxysmal Qualified Code(s): I48.0 - Paroxysmal atrial fibrillation (4) Hypercholesteremia Code(s): E78.0 - PURE HYPERCHOLESTEROLEMIA * DO NOT USE * (5) Hypertension Code(s): I10 - ESSENTIAL (PRIMARY) HYPERTENSION Qualifiers: Hypertension type: essential hypertension Qualified Code(s): I10 - Essential (primary) hypertension (6) Hypothyroid Code(s): E03.9 - HYPOTHYROIDISM, UNSPECIFIED Qualifiers: Hypothyroidism type: unspecified Qualified Code(s): E03.9 - Hypothyroidism, unspecified (7) Thrush, oral Code(s): B37.0 - CANDIDAL STOMATITIS Assessment/Plan (1) UTI (urinary tract infection) Assessment/Plan: -urine cultures growing ESBL e. coli, same as last time -ID following and managing antibiotics -changed to ertapenam Code(s): N39.0 - URINARY TRACT INFECTION, SITE NOT SPECIFIED (2) Heel ulceration Assessment/Plan: -wound culture also growing ESBL e. coli -antibiotics per ID -seen by wound care and treating wound -if continues to hurt, will consider CT scan to evaluate for fracture Code(s): L97.409 - NON-PRS CHRONIC ULCER OF UNSP HEEL AND MIDFOOT W UNSP SEVERT (3) Atrial fibrillation Assessment/Plan: -currently rate controlled -continue eliquis Code(s): I48.91 - UNSPECIFIED ATRIAL FIBRILLATION Qualifiers: Atrial fibrillation type: paroxysmal Qualified Code(s): I48.0 - Paroxysmal atrial fibrillation (4) Hypercholesteremia Assessment/Plan: -continue statin Code(s): E78.0 - PURE HYPERCHOLESTEROLEMIA * DO NOT USE * (5) Hypertension Assessment/Plan: -well controlled Code(s): I10 - ESSENTIAL (PRIMARY) HYPERTENSION Qualifiers: Hypertension type: essential hypertension Qualified Code(s): I10 - Essential (primary) hypertension (6) Hypothyroid Assessment/Plan: -continue synthroid Code(s): E03.9 - HYPOTHYROIDISM, UNSPECIFIED Qualifiers: Hypothyroidism type: unspecified Qualified Code(s): E03.9 - Hypothyroidism, unspecified (7) Thrush -nystatin swish and swallow day 5
--- NOTE | 2016-06-21 16:41 | PN ---
Progress Note, Physician History of Present Illness: main issues is the pain in the leg unable to bear weight rest she is doing well - Current Medication List Current Medications: Active Medications Acetaminophen (Tylenol -) 650 mg PO Q6H PRN PRN Reason: BACK PAIN Albuterol/Ipratropium (Duoneb -) 1 amp NEB Q6H PRN PRN Reason: WHEEZING Apixaban (Eliquis -) 2.5 mg PO BID [facility] Last Admin: 06/21/16 09:35 Dose: 2.5 mg Atorvastatin Calcium (Lipitor -) 10 mg PO HS [facility] [place] Last Admin: 06/20/16 22:19 Dose: 10 mg Collagenase (Santyl -) 1 applic TP DAILY [facility] [place] Last Admin: 06/21/16 09:35 Dose: 1 applic Docusate Sodium (Colace -) 100 mg PO DAILY [facility] [place] Last Admin: 06/21/16 09:34 Dose: 100 mg Gentamicin Sulfate (Garamycin 0.1% Ointment -) 1 applic TP BID [facility] [place] Last Admin: 06/20/16 22:19 Dose: Not Given Ertapenem 1 gm/ Sodium (Chloride) 50 mls @ 50 mls/hr IVPB DAILY [facility] [place] PRN Reason: Protocol Last Admin: 06/21/16 09:34 Dose: 50 mls/hr Levothyroxine Sodium (Synthroid -) 100 mcg PO ACBK [facility] [place] Last Admin: 06/21/16 06:42 Dose: 100 mcg Magnesium Oxide (Mag-Ox -) 400 mg PO BID [facility] [place] Last Admin: 06/21/16 09:35 Dose: 400 mg Mirtazapine (Remeron -) 15 mg PO HS [facility] [place] Last Admin: 06/20/16 22:23 Dose: 15 mg Nystatin (Nystatin Oral Suspension -) 500,000 units PO Q6HPO [facility] [place] Last Admin: 06/21/16 13:46 Dose: 500,000 units Ondansetron HCl (Zofran Injection) 4 mg IVPB Q6H PRN PRN Reason: NAUSEA Oxycodone HCl (Roxicodone -) 5 mg PO Q6H PRN PRN Reason: PAIN Last Admin: 06/21/16 13:46 Dose: 5 mg Pantoprazole Sodium (Protonix -) 40 mg PO DAILY [facility] [place] Last Admin: 06/21/16 09:34 Dose: 40 mg Polyethylene Glycol (Miralax (For Daily Use) -) 17 gm PO BID [facility] [place] Last Admin: 06/21/16 09:36 Dose: 17 gm Potassium Phos/Sodium Phos (Phos-Nak Packet -) 1 packet PO TID [facility] [place] Last Admin: 06/21/16 13:47 Dose: 1 packet - Objective Vital Signs: Vital Signs Temperature 97.5 F L 06/21/16 14:47 Pulse Rate 96 H 06/21/16 14:47 Respiratory Rate 20 06/21/16 14:47 Blood Pressure 113/61 06/21/16 14:47 O2 Sat by Pulse Oximetry (%) 100 06/20/16 20:57 Constitutional: Yes: Calm, Mild Distress Cardiovascular: Yes: Regular Rate and Rhythm Respiratory: Yes: Regular, CTA Bilaterally Gastrointestinal: Yes: Normal Bowel Sounds, Soft Musculoskeletal: Yes: Other Extremities: Yes: Other Neurological: Yes: Alert, Oriented Psychiatric: Yes: Alert Labs: CBC, BMP 06/20/16 06:00 06/20/16 06:00 Assessment/Plan Problem List - Problems (1) UTI (urinary tract infection) Code(s): N39.0 - URINARY TRACT INFECTION, SITE NOT SPECIFIED (2) Heel ulceration Code(s): L97.409 - NON-PRS CHRONIC ULCER OF UNSP HEEL AND MIDFOOT W UNSP SEVERT (3) Atrial fibrillation Code(s): I48.91 - UNSPECIFIED ATRIAL FIBRILLATION Qualifiers: Atrial fibrillation type: paroxysmal Qualified Code(s): I48.0 - Paroxysmal atrial fibrillation (4) Hypercholesteremia Code(s): E78.0 - PURE HYPERCHOLESTEROLEMIA * DO NOT USE * (5) Hypertension Code(s): I10 - ESSENTIAL (PRIMARY) HYPERTENSION Qualifiers: Hypertension type: essential hypertension Qualified Code(s): I10 - Essential (primary) hypertension (6) Hypothyroid Code(s): E03.9 - HYPOTHYROIDISM, UNSPECIFIED Qualifiers: Hypothyroidism type: unspecified Qualified Code(s): E03.9 - Hypothyroidism, unspecified (7) Thrush, oral Code(s): B37.0 - CANDIDAL STOMATITIS plan continue curent mgmt we will continue ertapenam for 2 more days i dont know if ortho evaluation would be helpful rest ct supportive care
[2016-06-21] MEDS: GENTAMICIN SO4 0.1% TOPICAL OINTMENT 15 GM/TUBE TUBE TP SCH ×2 (18:51→22:50)
[2016-06-21] MEDS: ACETAMINOPHEN 325 MG TABLET (FP) PO PRN (18:57)
[2016-06-21] MEDS: ATORVASTATIN CA 10 MG TABLET (FP) PO SCH (22:49)
[2016-06-21] MEDS: MIRTAZAPINE 15 MG TABLET (FP) PO SCH (22:51)
[2016-06-22] MEDS: NYSTATIN 500,000 UNITS/5 ML SUSPENSION PO SCH ×3 (00:20→12:52)
[2016-06-22] MEDS: LEVOTHYROXINE NA 100 MCG TABLET (FP) PO SCH (06:16)
[2016-06-22] MEDS: NAPH,MB-DB/K PH,MBDB POWDER PACKET PO SCH ×3 (06:17→21:45)
[2016-06-22 07:04] LABS: BASOPHIL 0.8 % (0-2.0); EOSINOPHIL 2.6 % (0-4.5); MCH 29.2 pg (25.7-33.7); MEAN CELL VOLUME 88.4 fl (80-96); MEAN PLT VOLUME 7.8 fl (7.5-11.1); NEUTROPHILS 51.2 % (42.8-82.8); PLATELET COUNT 231 K/MM3 (134-434); RDW 17.8 % (11.6-15.6)
[2016-06-22 07:36] LABS: CALCIUM 7.6 mg/dL (8.5-10.1); CREATININE 0.4 mg/dL (0.55-1.02); MAGNESIUM 1.9 mg/dL (1.8-2.4); PHOSPHOROUS 2.8 mg/dL (2.5-4.9)
[2016-06-22] MEDS: MAGNESIUM OXIDE 400 MG TABLET (FP) PO SCH ×2 (10:40→21:43)
[2016-06-22] MEDS: PANTOPRAZOLE 40 MG TABLET (FP) PO SCH (10:40)
[2016-06-22] MEDS: APIXABAN 2.5 MG TABLET PO SCH ×2 (10:40→21:43)
[2016-06-22] MEDS: DOCUSATE SODIUM 100 MG CAPSULE (FP) PO SCH (10:40)
[2016-06-22] MEDS: GENTAMICIN SO4 0.1% TOPICAL OINTMENT 15 GM/TUBE TUBE TP SCH ×2 (10:41→21:43)
[2016-06-22] MEDS: ERTAPENEM SODIUM 1 GM in SODIUM CHLORIDE 50 ML IVPB SCH (10:41)
[2016-06-22] MEDS: POLYETHYLENE GLYCOL 3350 119 GM BTL PO SCH ×2 (10:42→21:44)
[2016-06-22] MEDS: oxyCODONE HCL 5 MG TABLET PO PRN (10:43)
--- NOTE | 2016-06-22 12:33 | PN ---
Progress Note, Physician Chief Complaint: Ms Mei still with foot pain. No cp, sob, n/v. - Current Medication List Current Medications: Active Medications Acetaminophen (Tylenol -) 650 mg PO Q6H PRN PRN Reason: BACK PAIN Last Admin: 06/21/16 18:57 Dose: 650 mg Albuterol/Ipratropium (Duoneb -) 1 amp NEB Q6H PRN PRN Reason: WHEEZING Apixaban (Eliquis -) 2.5 mg PO BID [facility] Last Admin: 06/22/16 10:40 Dose: 2.5 mg Atorvastatin Calcium (Lipitor -) 10 mg PO HS [facility] Last Admin: 06/21/16 22:49 Dose: 10 mg Collagenase (Santyl -) 1 applic TP DAILY [facility] Last Admin: 06/21/16 09:35 Dose: 1 applic Docusate Sodium (Colace -) 100 mg PO DAILY [facility] Last Admin: 06/22/16 10:40 Dose: 100 mg Gentamicin Sulfate (Garamycin 0.1% Ointment -) 1 applic TP BID [facility] Last Admin: 06/22/16 10:41 Dose: Not Given Ertapenem 1 gm/ Sodium (Chloride) 50 mls @ 50 mls/hr IVPB DAILY [facility] PRN Reason: Protocol Last Admin: 06/22/16 10:41 Dose: 50 mls/hr Levothyroxine Sodium (Synthroid -) 100 mcg PO ACBK [facility] Last Admin: 06/22/16 06:16 Dose: 100 mcg Magnesium Oxide (Mag-Ox -) 400 mg PO BID [facility] Last Admin: 06/22/16 10:40 Dose: 400 mg Mirtazapine (Remeron -) 15 mg PO HS [facility] Last Admin: 06/21/16 22:51 Dose: 15 mg Nystatin (Nystatin Oral Suspension -) 500,000 units PO Q6HPO [facility] Last Admin: 06/22/16 06:18 Dose: 500,000 units Ondansetron HCl (Zofran Injection) 4 mg IVPB Q6H PRN PRN Reason: NAUSEA Oxycodone HCl (Roxicodone -) 5 mg PO Q6H PRN PRN Reason: PAIN Last Admin: 06/22/16 10:43 Dose: 5 mg Pantoprazole Sodium (Protonix -) 40 mg PO DAILY [facility] Last Admin: 06/22/16 10:40 Dose: 40 mg Polyethylene Glycol (Miralax (For Daily Use) -) 17 gm PO BID [facility] Last Admin: 06/22/16 10:42 Dose: 17 gm Potassium Phos/Sodium Phos (Phos-Nak Packet -) 1 packet PO TID [facility] Last Admin: 06/22/16 06:17 Dose: 1 packet - Objective Vital Signs: Vital Signs Temperature 97.5 F L 06/22/16 06:00 Pulse Rate 70 06/22/16 06:00 Respiratory Rate 20 06/22/16 06:00 Blood Pressure 124/62 06/22/16 06:00 O2 Sat by Pulse Oximetry (%) 97 06/21/16 21:00 Constitutional: Yes: Well Nourished, No Distress, Calm Cardiovascular: Yes: Pulse Irregular. No: Gallop, Murmur, Rub Respiratory: Yes: Regular, CTA Bilaterally. No: Rales, Rhonchi, Wheezes Gastrointestinal: Yes: Normal Bowel Sounds, Soft. No: Distention, Tenderness Extremities: Yes: Erythema (slight), Other (wound c/d/i) Edema: No Labs: CBC, BMP 06/22/16 06:00 06/22/16 06:00 Problem List - Problems (1) UTI (urinary tract infection) Code(s): N39.0 - URINARY TRACT INFECTION, SITE NOT SPECIFIED (2) Heel ulceration Code(s): L97.409 - NON-PRS CHRONIC ULCER OF UNSP HEEL AND MIDFOOT W UNSP SEVERT (3) Atrial fibrillation Code(s): I48.91 - UNSPECIFIED ATRIAL FIBRILLATION Qualifiers: Atrial fibrillation type: paroxysmal Qualified Code(s): I48.0 - Paroxysmal atrial fibrillation (4) Hypercholesteremia Code(s): E78.0 - PURE HYPERCHOLESTEROLEMIA * DO NOT USE * (5) Hypertension Code(s): I10 - ESSENTIAL (PRIMARY) HYPERTENSION Qualifiers: Hypertension type: essential hypertension Qualified Code(s): I10 - Essential (primary) hypertension (6) Hypothyroid Code(s): E03.9 - HYPOTHYROIDISM, UNSPECIFIED Qualifiers: Hypothyroidism type: unspecified Qualified Code(s): E03.9 - Hypothyroidism, unspecified (7) Thrush, oral Code(s): B37.0 - CANDIDAL STOMATITIS Assessment/Plan (1) UTI (urinary tract infection) Assessment/Plan: -urine cultures growing ESBL e. coli, same as last time -ID following and managing antibiotics -continue ertapenem per ID Code(s): N39.0 - URINARY TRACT INFECTION, SITE NOT SPECIFIED (2) Heel ulceration Assessment/Plan: -heel ulcer observed, clean -however still with significant pain that is progressing -continue ertapenem -obtain CT scan Code(s): L97.409 - NON-PRS CHRONIC ULCER OF UNSP HEEL AND MIDFOOT W UNSP SEVERT (3) Atrial fibrillation Assessment/Plan: -currently rate controlled -continue eliquis Code(s): I48.91 - UNSPECIFIED ATRIAL FIBRILLATION Qualifiers: Atrial fibrillation type: paroxysmal Qualified Code(s): I48.0 - Paroxysmal atrial fibrillation (4) Hypercholesteremia Assessment/Plan: -continue statin Code(s): E78.0 - PURE HYPERCHOLESTEROLEMIA * DO NOT USE * (5) Hypertension Assessment/Plan: -well controlled Code(s): I10 - ESSENTIAL (PRIMARY) HYPERTENSION Qualifiers: Hypertension type: essential hypertension Qualified Code(s): I10 - Essential (primary) hypertension (6) Hypothyroid Assessment/Plan: -continue synthroid Code(s): E03.9 - HYPOTHYROIDISM, UNSPECIFIED Qualifiers: Hypothyroidism type: unspecified Qualified Code(s): E03.9 - Hypothyroidism, unspecified (7) Thrush -can stop nystatin today
[2016-06-22] MEDS: COLLAGENASE CLOSTRIDIUM HIST. 30 GRAMS TUBE TP SCH (12:52)
--- NOTE | 2016-06-22 16:12 | PN ---
Progress Note, Physician History of Present Illness: leg pain patient got imaging studies of the leg - Current Medication List Current Medications: Active Medications Acetaminophen (Tylenol -) 650 mg PO Q6H PRN PRN Reason: BACK PAIN Last Admin: 06/21/16 18:57 Dose: 650 mg Albuterol/Ipratropium (Duoneb -) 1 amp NEB Q6H PRN PRN Reason: WHEEZING Apixaban (Eliquis -) 2.5 mg PO BID [facility] Last Admin: 06/22/16 10:40 Dose: 2.5 mg Atorvastatin Calcium (Lipitor -) 10 mg PO HS [facility] Last Admin: 06/21/16 22:49 Dose: 10 mg Collagenase (Santyl -) 1 applic TP DAILY [facility] Last Admin: 06/22/16 12:52 Dose: 1 applic Docusate Sodium (Colace -) 100 mg PO DAILY [facility] Last Admin: 06/22/16 10:40 Dose: 100 mg Gentamicin Sulfate (Garamycin 0.1% Ointment -) 1 applic TP BID [facility] Last Admin: 06/22/16 10:41 Dose: Not Given Ertapenem 1 gm/ Sodium (Chloride) 50 mls @ 50 mls/hr IVPB DAILY [facility] PRN Reason: Protocol Last Admin: 06/22/16 10:41 Dose: 50 mls/hr Levothyroxine Sodium (Synthroid -) 100 mcg PO ACBK [facility] Last Admin: 06/22/16 06:16 Dose: 100 mcg Magnesium Oxide (Mag-Ox -) 400 mg PO BID [facility] Last Admin: 06/22/16 10:40 Dose: 400 mg Mirtazapine (Remeron -) 15 mg PO HS [facility] Last Admin: 06/21/16 22:51 Dose: 15 mg Nystatin (Nystatin Oral Suspension -) 500,000 units PO Q6HPO [facility] Last Admin: 06/22/16 12:52 Dose: 500,000 units Ondansetron HCl (Zofran Injection) 4 mg IVPB Q6H PRN PRN Reason: NAUSEA Oxycodone HCl (Roxicodone -) 5 mg PO Q6H PRN PRN Reason: PAIN Last Admin: 06/22/16 10:43 Dose: 5 mg Pantoprazole Sodium (Protonix -) 40 mg PO DAILY [facility] Last Admin: 06/22/16 10:40 Dose: 40 mg Polyethylene Glycol (Miralax (For Daily Use) -) 17 gm PO BID [facility] Last Admin: 06/22/16 10:42 Dose: 17 gm Potassium Phos/Sodium Phos (Phos-Nak Packet -) 1 packet PO TID [facility] Last Admin: 06/22/16 13:00 Dose: 1 packet - Objective Vital Signs: Vital Signs Temperature 97.2 F L 06/22/16 13:32 Pulse Rate 80 06/22/16 13:32 Respiratory Rate 20 06/22/16 13:32 Blood Pressure 117/71 06/22/16 13:32 O2 Sat by Pulse Oximetry (%) 97 06/21/16 21:00 Constitutional: Yes: Calm, Mild Distress, Thin Cardiovascular: Yes: Regular Rate and Rhythm Respiratory: Yes: Regular, CTA Bilaterally Gastrointestinal: Yes: Normal Bowel Sounds, Soft Musculoskeletal: Yes: Other Extremities: Yes: Other Neurological: Yes: Alert, Oriented Psychiatric: Yes: Alert Labs: CBC, BMP 06/22/16 06:00 06/22/16 06:00 Assessment/Plan Problem List - Problems (1) UTI (urinary tract infection) Code(s): N39.0 - URINARY TRACT INFECTION, SITE NOT SPECIFIED (2) Heel ulceration Code(s): L97.409 - NON-PRS CHRONIC ULCER OF UNSP HEEL AND MIDFOOT W UNSP SEVERT (3) Atrial fibrillation Code(s): I48.91 - UNSPECIFIED ATRIAL FIBRILLATION Qualifiers: Atrial fibrillation type: paroxysmal Qualified Code(s): I48.0 - Paroxysmal atrial fibrillation (4) Hypercholesteremia Code(s): E78.0 - PURE HYPERCHOLESTEROLEMIA * DO NOT USE * (5) Hypertension Code(s): I10 - ESSENTIAL (PRIMARY) HYPERTENSION Qualifiers: Hypertension type: essential hypertension Qualified Code(s): I10 - Essential (primary) hypertension (6) Hypothyroid Code(s): E03.9 - HYPOTHYROIDISM, UNSPECIFIED Qualifiers: Hypothyroidism type: unspecified Qualified Code(s): E03.9 - Hypothyroidism, unspecified (7) Thrush, oral Code(s): B37.0 - CANDIDAL STOMATITIS plan continue curent mgmt stop ertapenam after 18th dose await for ct results images seen
[2016-06-22] MEDS ORDERED: PT OWN MED DRAWER 7, Y5N ONE (21:03)
[2016-06-22] MEDS: ATORVASTATIN CA 10 MG TABLET (FP) PO SCH (21:43)
[2016-06-22] MEDS: MIRTAZAPINE 15 MG TABLET (FP) PO SCH (21:45)
[2016-06-23] MEDS: NAPH,MB-DB/K PH,MBDB POWDER PACKET PO SCH ×3 (05:56→21:37)
[2016-06-23] MEDS: LEVOTHYROXINE NA 100 MCG TABLET (FP) PO SCH (06:00)
[2016-06-23 07:24] LABS: BASOPHIL 1.1 % (0-2.0); MCH 29.3 pg (25.7-33.7); MCHC 33.4 g/dl (32.0-36.0); MEAN CELL VOLUME 87.9 fl (80-96); NEUTROPHILS 58.8 % (42.8-82.8); PLATELET COUNT 290 K/MM3 (134-434); WHITE BLOOD COUNT 6.8 K/mm3 (4.0-10.0)
[2016-06-23 07:40] LABS: CALCIUM 7.7 mg/dL (8.5-10.1); CREATININE 0.5 mg/dL (0.55-1.02); MAGNESIUM 1.9 mg/dL (1.8-2.4); PHOSPHOROUS 2.8 mg/dL (2.5-4.9)
[2016-06-23] MEDS: APIXABAN 2.5 MG TABLET PO SCH ×2 (10:30→21:38)
[2016-06-23] MEDS: POLYETHYLENE GLYCOL 3350 119 GM BTL PO SCH ×2 (11:01→21:37)
[2016-06-23] MEDS: ERTAPENEM SODIUM 1 GM in SODIUM CHLORIDE 50 ML IVPB SCH (11:01)
[2016-06-23] MEDS: DOCUSATE SODIUM 100 MG CAPSULE (FP) PO SCH (11:01)
[2016-06-23] MEDS: MAGNESIUM OXIDE 400 MG TABLET (FP) PO SCH ×2 (11:01→21:37)
[2016-06-23] MEDS: PANTOPRAZOLE 40 MG TABLET (FP) PO SCH (11:01)
[2016-06-23] MEDS: COLLAGENASE CLOSTRIDIUM HIST. 30 GRAMS TUBE TP SCH (11:02)
[2016-06-23] MEDS: GENTAMICIN SO4 0.1% TOPICAL OINTMENT 15 GM/TUBE TUBE TP SCH ×2 (11:02→21:38)
--- NOTE | 2016-06-23 11:45 | PN ---
Progress Note, Physician Chief Complaint: Ms Mei still with foot pain. No cp, sob, n/v. - Current Medication List Current Medications: Active Medications Acetaminophen (Tylenol -) 650 mg PO Q6H PRN PRN Reason: BACK PAIN Last Admin: 06/21/16 18:57 Dose: 650 mg Albuterol/Ipratropium (Duoneb -) 1 amp NEB Q6H PRN PRN Reason: WHEEZING Apixaban (Eliquis -) 2.5 mg PO BID [facility] Last Admin: 06/22/16 21:43 Dose: 2.5 mg Atorvastatin Calcium (Lipitor -) 10 mg PO HS [facility] Last Admin: 06/22/16 21:43 Dose: 10 mg Collagenase (Santyl -) 1 applic TP DAILY [facility] Last Admin: 06/23/16 11:02 Dose: 1 applic Docusate Sodium (Colace -) 100 mg PO DAILY [facility] Last Admin: 06/23/16 11:01 Dose: 100 mg Gentamicin Sulfate (Garamycin 0.1% Ointment -) 1 applic TP BID [facility] Last Admin: 06/23/16 11:02 Dose: Not Given Ertapenem 1 gm/ Sodium (Chloride) 50 mls @ 50 mls/hr IVPB DAILY [facility] PRN Reason: Protocol Last Admin: 06/23/16 11:01 Dose: 50 mls/hr Levothyroxine Sodium (Synthroid -) 100 mcg PO ACBK [facility] Last Admin: 06/23/16 06:00 Dose: 100 mcg Magnesium Oxide (Mag-Ox -) 400 mg PO BID [facility] Last Admin: 06/23/16 11:01 Dose: 400 mg Mirtazapine (Remeron -) 15 mg PO HS [facility] Last Admin: 06/22/16 21:45 Dose: 15 mg Ondansetron HCl (Zofran Injection) 4 mg IVPB Q6H PRN PRN Reason: NAUSEA Oxycodone HCl (Roxicodone -) 5 mg PO Q6H PRN PRN Reason: PAIN Last Admin: 06/22/16 10:43 Dose: 5 mg Pantoprazole Sodium (Protonix -) 40 mg PO DAILY [facility] Last Admin: 06/23/16 11:01 Dose: 40 mg Polyethylene Glycol (Miralax (For Daily Use) -) 17 gm PO BID [facility] Last Admin: 06/23/16 11:01 Dose: 17 gm Potassium Phos/Sodium Phos (Phos-Nak Packet -) 1 packet PO TID [facility] Last Admin: 06/23/16 05:56 Dose: 1 packet - Objective Vital Signs: Vital Signs Temperature 97.3 F L 06/23/16 10:00 Pulse Rate 81 06/23/16 10:00 Respiratory Rate 20 06/23/16 10:00 Blood Pressure 107/65 06/23/16 10:00 O2 Sat by Pulse Oximetry (%) 99 06/22/16 20:13 Constitutional: Yes: Well Nourished, No Distress, Calm Cardiovascular: Yes: Regular Rate and Rhythm. No: Gallop, Murmur, Rub Respiratory: Yes: Regular, CTA Bilaterally. No: Rales, Rhonchi, Wheezes Gastrointestinal: Yes: Normal Bowel Sounds, Soft. No: Distention, Tenderness Extremities: Yes: WNL Edema: No Labs: CBC, BMP 06/23/16 06:00 06/23/16 06:00 Problem List - Problems (1) UTI (urinary tract infection) Code(s): N39.0 - URINARY TRACT INFECTION, SITE NOT SPECIFIED (2) Heel ulceration Code(s): L97.409 - NON-PRS CHRONIC ULCER OF UNSP HEEL AND MIDFOOT W UNSP SEVERT (3) Atrial fibrillation Code(s): I48.91 - UNSPECIFIED ATRIAL FIBRILLATION Qualifiers: Atrial fibrillation type: paroxysmal Qualified Code(s): I48.0 - Paroxysmal atrial fibrillation (4) Hypercholesteremia Code(s): E78.0 - PURE HYPERCHOLESTEROLEMIA * DO NOT USE * (5) Hypertension Code(s): I10 - ESSENTIAL (PRIMARY) HYPERTENSION Qualifiers: Hypertension type: essential hypertension Qualified Code(s): I10 - Essential (primary) hypertension (6) Hypothyroid Code(s): E03.9 - HYPOTHYROIDISM, UNSPECIFIED Qualifiers: Hypothyroidism type: unspecified Qualified Code(s): E03.9 - Hypothyroidism, unspecified (7) Thrush, oral Code(s): B37.0 - CANDIDAL STOMATITIS Assessment/Plan (1) UTI (urinary tract infection) Assessment/Plan: -urine cultures growing ESBL e. coli, same as last time -ID following and managing antibiotics -continue ertapenem per ID Code(s): N39.0 - URINARY TRACT INFECTION, SITE NOT SPECIFIED (2) Heel ulceration Assessment/Plan: -heel ulcer observed, clean -however still with significant pain that is progressing -continue ertapenem -CT scan resulted and reviewed -do not have a good reason for pain -will d/w ID if MRI is appropriate Code(s): L97.409 - NON-PRS CHRONIC ULCER OF UNSP HEEL AND MIDFOOT W UNSP SEVERT (3) Atrial fibrillation Assessment/Plan: -currently rate controlled -continue eliquis Code(s): I48.91 - UNSPECIFIED ATRIAL FIBRILLATION Qualifiers: Atrial fibrillation type: paroxysmal Qualified Code(s): I48.0 - Paroxysmal atrial fibrillation (4) Hypercholesteremia Assessment/Plan: -continue statin Code(s): E78.0 - PURE HYPERCHOLESTEROLEMIA * DO NOT USE * (5) Hypertension Assessment/Plan: -well controlled Code(s): I10 - ESSENTIAL (PRIMARY) HYPERTENSION Qualifiers: Hypertension type: essential hypertension Qualified Code(s): I10 - Essential (primary) hypertension (6) Hypothyroid Assessment/Plan: -continue synthroid Code(s): E03.9 - HYPOTHYROIDISM, UNSPECIFIED Qualifiers: Hypothyroidism type: unspecified Qualified Code(s): E03.9 - Hypothyroidism, unspecified (7) Thrush -s/p nystatin
--- NOTE | 2016-06-23 13:46 | PN ---
Progress Note, Physician History of Present Illness: stable leg is the only thing bothering her frustrated - Current Medication List Current Medications: Active Medications Acetaminophen (Tylenol -) 650 mg PO Q6H PRN PRN Reason: BACK PAIN Last Admin: 06/21/16 18:57 Dose: 650 mg Albuterol/Ipratropium (Duoneb -) 1 amp NEB Q6H PRN PRN Reason: WHEEZING Apixaban (Eliquis -) 2.5 mg PO BID [facility] Last Admin: 06/22/16 21:43 Dose: 2.5 mg Atorvastatin Calcium (Lipitor -) 10 mg PO HS [facility] Last Admin: 06/22/16 21:43 Dose: 10 mg Collagenase (Santyl -) 1 applic TP DAILY [facility] Last Admin: 06/23/16 11:02 Dose: 1 applic Docusate Sodium (Colace -) 100 mg PO DAILY [facility] Last Admin: 06/23/16 11:01 Dose: 100 mg Gentamicin Sulfate (Garamycin 0.1% Ointment -) 1 applic TP BID [facility] Last Admin: 06/23/16 11:02 Dose: Not Given Ertapenem 1 gm/ Sodium (Chloride) 50 mls @ 50 mls/hr IVPB DAILY [facility] PRN Reason: Protocol Last Admin: 06/23/16 11:01 Dose: 50 mls/hr Levothyroxine Sodium (Synthroid -) 100 mcg PO ACBK [facility] Last Admin: 06/23/16 06:00 Dose: 100 mcg Magnesium Oxide (Mag-Ox -) 400 mg PO BID [facility] Last Admin: 06/23/16 11:01 Dose: 400 mg Mirtazapine (Remeron -) 15 mg PO HS [facility] Last Admin: 06/22/16 21:45 Dose: 15 mg Ondansetron HCl (Zofran Injection) 4 mg IVPB Q6H PRN PRN Reason: NAUSEA Oxycodone HCl (Roxicodone -) 5 mg PO Q6H PRN PRN Reason: PAIN Last Admin: 06/22/16 10:43 Dose: 5 mg Pantoprazole Sodium (Protonix -) 40 mg PO DAILY [facility] Last Admin: 06/23/16 11:01 Dose: 40 mg Polyethylene Glycol (Miralax (For Daily Use) -) 17 gm PO BID [facility] Last Admin: 06/23/16 11:01 Dose: 17 gm Potassium Phos/Sodium Phos (Phos-Nak Packet -) 1 packet PO TID [facility] Last Admin: 06/23/16 05:56 Dose: 1 packet - Objective Vital Signs: Vital Signs Temperature 97.3 F L 06/23/16 10:00 Pulse Rate 81 06/23/16 10:00 Respiratory Rate 20 06/23/16 10:00 Blood Pressure 107/65 06/23/16 10:00 O2 Sat by Pulse Oximetry (%) 99 06/23/16 09:00 Constitutional: Yes: Calm, Mild Distress Cardiovascular: Yes: Regular Rate and Rhythm Respiratory: Yes: Regular, CTA Bilaterally Gastrointestinal: Yes: Normal Bowel Sounds, Soft Musculoskeletal: Yes: Other Extremities: Yes: Other Neurological: Yes: Alert, Oriented Psychiatric: Yes: Alert Labs: CBC, BMP 06/23/16 06:00 06/23/16 06:00 Assessment/Plan Problem List - Problems (1) UTI (urinary tract infection) Code(s): N39.0 - URINARY TRACT INFECTION, SITE NOT SPECIFIED (2) Heel ulceration Code(s): L97.409 - NON-PRS CHRONIC ULCER OF UNSP HEEL AND MIDFOOT W UNSP SEVERT (3) Atrial fibrillation Code(s): I48.91 - UNSPECIFIED ATRIAL FIBRILLATION Qualifiers: Atrial fibrillation type: paroxysmal Qualified Code(s): I48.0 - Paroxysmal atrial fibrillation (4) Hypercholesteremia Code(s): E78.0 - PURE HYPERCHOLESTEROLEMIA * DO NOT USE * (5) Hypertension Code(s): I10 - ESSENTIAL (PRIMARY) HYPERTENSION Qualifiers: Hypertension type: essential hypertension Qualified Code(s): I10 - Essential (primary) hypertension (6) Hypothyroid Code(s): E03.9 - HYPOTHYROIDISM, UNSPECIFIED Qualifiers: Hypothyroidism type: unspecified Qualified Code(s): E03.9 - Hypothyroidism, unspecified (7) Thrush, oral Code(s): B37.0 - CANDIDAL STOMATITIS plan continue curent mgmt stop ertapenam after tomorrows dose ct result noted physio
[2016-06-23] MEDS: ATORVASTATIN CA 10 MG TABLET (FP) PO SCH (21:37)
[2016-06-23] MEDS: GABAPENTIN 300 MG CAPSULE (FP) PO SCH (21:37)
[2016-06-23] MEDS: MIRTAZAPINE 15 MG TABLET (FP) PO SCH (21:38)
[2016-06-24] MEDS: NAPH,MB-DB/K PH,MBDB POWDER PACKET PO SCH ×3 (07:41→21:54)
[2016-06-24] MEDS: LEVOTHYROXINE NA 100 MCG TABLET (FP) PO SCH (07:41)
[2016-06-24 07:59] LABS: BASOPHIL 0.9 % (0-2.0); EOSINOPHIL 2.5 % (0-4.5); MCH 29.1 pg (25.7-33.7); MCHC 32.8 g/dl (32.0-36.0); MEAN CELL VOLUME 88.6 fl (80-96); MEAN PLT VOLUME 7.7 fl (7.5-11.1); NEUTROPHILS 57.1 % (42.8-82.8); PLATELET COUNT 239 K/MM3 (134-434); RDW 18.5 % (11.6-15.6)
[2016-06-24 08:29] LABS: CALCIUM 7.7 mg/dL (8.5-10.1); PHOSPHOROUS 2.5 mg/dL (2.5-4.9)
[2016-06-24 08:30] LABS: CREATININE 0.5 mg/dL (0.55-1.02)
[2016-06-24] MEDS ORDERED: PT OWN MED DRAWER 7, Y5N ONE (09:47)
[2016-06-24] MEDS: MAGNESIUM OXIDE 400 MG TABLET (FP) PO SCH ×2 (09:56→21:53)
[2016-06-24] MEDS: PANTOPRAZOLE 40 MG TABLET (FP) PO SCH (09:56)
[2016-06-24] MEDS: ERTAPENEM SODIUM 1 GM in SODIUM CHLORIDE 50 ML IVPB SCH (09:56)
[2016-06-24] MEDS: DOCUSATE SODIUM 100 MG CAPSULE (FP) PO SCH (09:56)
[2016-06-24] MEDS: POLYETHYLENE GLYCOL 3350 119 GM BTL PO SCH ×2 (09:57→21:53)
[2016-06-24] MEDS: GENTAMICIN SO4 0.1% TOPICAL OINTMENT 15 GM/TUBE TUBE TP SCH ×2 (09:57→21:53)
--- NOTE | 2016-06-24 12:53 | PN ---
Progress Note, Physician History of Present Illness: Feeling the same, still with pain in right foot. Otherwise feels OK. - Current Medication List Current Medications: Active Medications Acetaminophen (Tylenol -) 650 mg PO Q6H PRN PRN Reason: BACK PAIN Last Admin: 06/21/16 18:57 Dose: 650 mg Albuterol/Ipratropium (Duoneb -) 1 amp NEB Q6H PRN PRN Reason: WHEEZING Apixaban (Eliquis -) 2.5 mg PO BID [facility] Last Admin: 06/23/16 21:38 Dose: 2.5 mg Atorvastatin Calcium (Lipitor -) 10 mg PO HS [facility] Last Admin: 06/23/16 21:37 Dose: 10 mg Collagenase (Santyl -) 1 applic TP DAILY [facility] Last Admin: 06/23/16 11:02 Dose: 1 applic Docusate Sodium (Colace -) 100 mg PO DAILY [facility] Last Admin: 06/24/16 09:56 Dose: 100 mg Gabapentin (Neurontin -) 300 mg PO HS [facility] Last Admin: 06/23/16 21:37 Dose: 300 mg Gentamicin Sulfate (Garamycin 0.1% Ointment -) 1 applic TP BID [facility] Last Admin: 06/24/16 09:57 Dose: Not Given Ertapenem 1 gm/ Sodium (Chloride) 50 mls @ 50 mls/hr IVPB DAILY [facility] PRN Reason: Protocol Last Admin: 06/24/16 09:56 Dose: 50 mls/hr Levothyroxine Sodium (Synthroid -) 100 mcg PO ACBK [facility] Last Admin: 06/24/16 07:41 Dose: 100 mcg Magnesium Oxide (Mag-Ox -) 400 mg PO BID [facility] Last Admin: 06/24/16 09:56 Dose: 400 mg Mirtazapine (Remeron -) 15 mg PO HS [facility] Last Admin: 06/23/16 21:38 Dose: 15 mg Ondansetron HCl (Zofran Injection) 4 mg IVPB Q6H PRN PRN Reason: NAUSEA Oxycodone HCl (Roxicodone -) 5 mg PO Q6H PRN PRN Reason: PAIN Last Admin: 06/22/16 10:43 Dose: 5 mg Pantoprazole Sodium (Protonix -) 40 mg PO DAILY [facility] Last Admin: 06/24/16 09:56 Dose: 40 mg Polyethylene Glycol (Miralax (For Daily Use) -) 17 gm PO BID [facility] Last Admin: 06/24/16 09:57 Dose: Not Given Potassium Phos/Sodium Phos (Phos-Nak Packet -) 1 packet PO TID [facility] Last Admin: 06/24/16 07:41 Dose: 1 packet - Objective Vital Signs: Vital Signs Temperature 97.9 F 06/24/16 06:39 Pulse Rate 69 06/24/16 06:39 Respiratory Rate 18 06/24/16 06:39 Blood Pressure 103/57 06/24/16 06:39 O2 Sat by Pulse Oximetry (%) 99 06/23/16 20:38 Constitutional: Yes: No Distress, Calm HENT: Yes: Atraumatic, Normocephalic Neck: Yes: Supple, Trachea Midline Cardiovascular: Yes: Regular Rate and Rhythm, S1, S2. No: Murmur Respiratory: Yes: Regular, CTA Bilaterally. No: Rales, Rhonchi, Wheezes Gastrointestinal: Yes: Normal Bowel Sounds, Soft. No: Distention, Tenderness Extremities: Yes: Other (dressing on right foot/ heel with tenderness ot active and passive motion) Edema: No Labs: CBC, BMP 06/24/16 07:05 06/24/16 07:05 Assessment/Plan Current Active Problems Dehydration (Acute) Heel ulceration (Acute) Pyelonephritis, acute (Acute) Thrush, oral (Acute) UTI (urinary tract infection) (Acute) -cont abx per ID (to switch to PO soon?) -will need PT after pain decreases -will add daytime dose gabapentin for pain
[2016-06-24] MEDS: APIXABAN 2.5 MG TABLET PO SCH ×2 (13:27→21:52)
[2016-06-24] MEDS: COLLAGENASE CLOSTRIDIUM HIST. 30 GRAMS TUBE TP SCH (13:27)
--- NOTE | 2016-06-24 14:25 | PN ---
Progress Note, Physician History of Present Illness: feeling much better after the brace was applied to her leg can move the leg pain better - Current Medication List Current Medications: Active Medications Acetaminophen (Tylenol -) 650 mg PO Q6H PRN PRN Reason: BACK PAIN Last Admin: 06/21/16 18:57 Dose: 650 mg Albuterol/Ipratropium (Duoneb -) 1 amp NEB Q6H PRN PRN Reason: WHEEZING Apixaban (Eliquis -) 2.5 mg PO BID [facility] Last Admin: 06/24/16 13:27 Dose: 2.5 mg Atorvastatin Calcium (Lipitor -) 10 mg PO HS [facility] Last Admin: 06/23/16 21:37 Dose: 10 mg Collagenase (Santyl -) 1 applic TP DAILY [facility] Last Admin: 06/24/16 13:27 Dose: 1 applic Docusate Sodium (Colace -) 100 mg PO DAILY [facility] Last Admin: 06/24/16 09:56 Dose: 100 mg Gabapentin (Neurontin -) 300 mg PO HS [facility] Last Admin: 06/23/16 21:37 Dose: 300 mg Gabapentin (Neurontin -) 100 mg PO DAILY [facility] Gentamicin Sulfate (Garamycin 0.1% Ointment -) 1 applic TP BID [facility] Last Admin: 06/24/16 09:57 Dose: Not Given Ertapenem 1 gm/ Sodium (Chloride) 50 mls @ 50 mls/hr IVPB DAILY [facility] PRN Reason: Protocol Last Admin: 06/24/16 09:56 Dose: 50 mls/hr Levothyroxine Sodium (Synthroid -) 100 mcg PO ACBK [facility] Last Admin: 06/24/16 07:41 Dose: 100 mcg Magnesium Oxide (Mag-Ox -) 400 mg PO BID [facility] Last Admin: 06/24/16 09:56 Dose: 400 mg Mirtazapine (Remeron -) 15 mg PO HS [facility] Last Admin: 06/23/16 21:38 Dose: 15 mg Ondansetron HCl (Zofran Injection) 4 mg IVPB Q6H PRN PRN Reason: NAUSEA Oxycodone HCl (Roxicodone -) 5 mg PO Q6H PRN PRN Reason: PAIN Last Admin: 06/22/16 10:43 Dose: 5 mg Pantoprazole Sodium (Protonix -) 40 mg PO DAILY [facility] Last Admin: 06/24/16 09:56 Dose: 40 mg Polyethylene Glycol (Miralax (For Daily Use) -) 17 gm PO BID [facility] Last Admin: 06/24/16 09:57 Dose: Not Given Potassium Phos/Sodium Phos (Phos-Nak Packet -) 1 packet PO TID [facility] Last Admin: 06/24/16 13:28 Dose: 1 packet - Objective Vital Signs: Vital Signs Temperature 97.3 F L 06/24/16 10:00 Pulse Rate 69 06/24/16 10:00 Respiratory Rate 18 06/24/16 10:00 Blood Pressure 111/65 06/24/16 10:00 O2 Sat by Pulse Oximetry (%) 99 06/23/16 20:38 Constitutional: Yes: No Distress, Calm Cardiovascular: Yes: Regular Rate and Rhythm Respiratory: Yes: Regular, CTA Bilaterally Gastrointestinal: Yes: Normal Bowel Sounds, Soft Musculoskeletal: Yes: Other Extremities: Yes: Other Neurological: Yes: Alert, Oriented Psychiatric: Yes: Alert Labs: CBC, BMP 06/24/16 07:05 06/24/16 07:05 Assessment/Plan Problem List - Problems (1) UTI (urinary tract infection) Code(s): N39.0 - URINARY TRACT INFECTION, SITE NOT SPECIFIED (2) Heel ulceration Code(s): L97.409 - NON-PRS CHRONIC ULCER OF UNSP HEEL AND MIDFOOT W UNSP SEVERT (3) Atrial fibrillation Code(s): I48.91 - UNSPECIFIED ATRIAL FIBRILLATION Qualifiers: Atrial fibrillation type: paroxysmal Qualified Code(s): I48.0 - Paroxysmal atrial fibrillation (4) Hypercholesteremia Code(s): E78.0 - PURE HYPERCHOLESTEROLEMIA * DO NOT USE * (5) Hypertension Code(s): I10 - ESSENTIAL (PRIMARY) HYPERTENSION Qualifiers: Hypertension type: essential hypertension Qualified Code(s): I10 - Essential (primary) hypertension (6) Hypothyroid Code(s): E03.9 - HYPOTHYROIDISM, UNSPECIFIED Qualifiers: Hypothyroidism type: unspecified Qualified Code(s): E03.9 - Hypothyroidism, unspecified (7) Thrush, oral Code(s): B37.0 - CANDIDAL STOMATITIS plan continue curent mgmt stop ertapenam after todays dose physio rest as per the team
[2016-06-24] MEDS: ATORVASTATIN CA 10 MG TABLET (FP) PO SCH (21:53)
[2016-06-24] MEDS: GABAPENTIN 300 MG CAPSULE (FP) PO SCH (21:53)
[2016-06-24] MEDS: MIRTAZAPINE 15 MG TABLET (FP) PO SCH (21:54)
[2016-06-25] MEDS: NAPH,MB-DB/K PH,MBDB POWDER PACKET PO SCH ×3 (06:30→23:13)
[2016-06-25] MEDS: LEVOTHYROXINE NA 100 MCG TABLET (FP) PO SCH (06:30)
[2016-06-25] MEDS: oxyCODONE HCL 5 MG TABLET PO PRN (09:34)
[2016-06-25] MEDS: GABAPENTIN 100 MG CAPSULE (FP) PO SCH (09:35)
[2016-06-25] MEDS: DOCUSATE SODIUM 100 MG CAPSULE (FP) PO SCH (09:35)
[2016-06-25] MEDS: PANTOPRAZOLE 40 MG TABLET (FP) PO SCH (09:35)
[2016-06-25] MEDS: MAGNESIUM OXIDE 400 MG TABLET (FP) PO SCH ×2 (09:35→23:12)
[2016-06-25] MEDS: APIXABAN 2.5 MG TABLET PO SCH ×2 (09:35→23:11)
[2016-06-25] MEDS: ACETAMINOPHEN 325 MG TABLET (FP) PO PRN (09:35)
[2016-06-25] MEDS: ERTAPENEM SODIUM 1 GM in SODIUM CHLORIDE 50 ML IVPB SCH (09:37)
[2016-06-25] MEDS: POLYETHYLENE GLYCOL 3350 119 GM BTL PO SCH ×2 (09:37→23:13)
[2016-06-25] MEDS: GENTAMICIN SO4 0.1% TOPICAL OINTMENT 15 GM/TUBE TUBE TP SCH ×2 (09:37→23:12)
--- NOTE | 2016-06-25 11:14 | PN ---
Progress Note, Physician History of Present Illness: Feeling a lot of pain in foot today. Otherwise infection seems to be cleared up and to stop abx. - Current Medication List Current Medications: Active Medications Acetaminophen (Tylenol -) 650 mg PO Q6H PRN PRN Reason: BACK PAIN Last Admin: 06/25/16 09:35 Dose: 650 mg Albuterol/Ipratropium (Duoneb -) 1 amp NEB Q6H PRN PRN Reason: WHEEZING Apixaban (Eliquis -) 2.5 mg PO BID [facility] Last Admin: 06/25/16 09:35 Dose: 2.5 mg Atorvastatin Calcium (Lipitor -) 10 mg PO HS [facility] Last Admin: 06/24/16 21:53 Dose: 10 mg Colchicine (Colcrys -) 0.6 mg PO DAILY [facility] Collagenase (Santyl -) 1 applic TP DAILY [facility] Last Admin: 06/24/16 13:27 Dose: 1 applic Docusate Sodium (Colace -) 100 mg PO DAILY [facility] Last Admin: 06/25/16 09:35 Dose: 100 mg Gabapentin (Neurontin -) 300 mg PO HS [facility] Last Admin: 06/24/16 21:53 Dose: 300 mg Gabapentin (Neurontin -) 100 mg PO DAILY [facility] Last Admin: 06/25/16 09:35 Dose: 100 mg Gentamicin Sulfate (Garamycin 0.1% Ointment -) 1 applic TP BID [facility] Last Admin: 06/25/16 09:37 Dose: Not Given Ertapenem 1 gm/ Sodium (Chloride) 50 mls @ 50 mls/hr IVPB DAILY [facility] PRN Reason: Protocol Last Admin: 06/25/16 09:37 Dose: 50 mls/hr Levothyroxine Sodium (Synthroid -) 100 mcg PO ACBK [facility] Last Admin: 06/25/16 06:30 Dose: 100 mcg Magnesium Oxide (Mag-Ox -) 400 mg PO BID [facility] Last Admin: 06/25/16 09:35 Dose: 400 mg Mirtazapine (Remeron -) 15 mg PO HS [facility] Last Admin: 06/24/16 21:54 Dose: 15 mg Ondansetron HCl (Zofran Injection) 4 mg IVPB Q6H PRN PRN Reason: NAUSEA Oxycodone HCl (Roxicodone -) 5 mg PO Q6H PRN PRN Reason: PAIN Last Admin: 06/25/16 09:34 Dose: 5 mg Pantoprazole Sodium (Protonix -) 40 mg PO DAILY [facility] Last Admin: 06/25/16 09:35 Dose: 40 mg Polyethylene Glycol (Miralax (For Daily Use) -) 17 gm PO BID [facility] Last Admin: 06/25/16 09:37 Dose: Not Given Potassium Phos/Sodium Phos (Phos-Nak Packet -) 1 packet PO TID [facility] Last Admin: 06/25/16 06:30 Dose: 1 packet - Objective Vital Signs: Vital Signs Temperature 97.5 F L 06/25/16 05:51 Pulse Rate 74 06/25/16 05:51 Respiratory Rate 18 06/25/16 05:51 Blood Pressure 106/64 06/25/16 05:51 O2 Sat by Pulse Oximetry (%) 98 06/24/16 20:38 Constitutional: Yes: No Distress, Calm Neck: Yes: Supple, Trachea Midline Cardiovascular: Yes: Regular Rate and Rhythm, S1, S2. No: Murmur Respiratory: Yes: Regular, CTA Bilaterally. No: Rales, Rhonchi, Wheezes Gastrointestinal: Yes: Normal Bowel Sounds, Soft. No: Distention, Tenderness Extremities: Yes: Other (right ankle pain to active and passive movement) Wound/Incision: Yes: Other (dressing right ankle/heel) Neurological: Yes: Alert, Oriented Labs: CBC, BMP 06/24/16 07:05 06/24/16 07:05 Assessment/Plan Current Active Problems Dehydration (Acute) Heel ulceration (Acute) Pyelonephritis, acute (Acute) Thrush, oral (Acute) UTI (urinary tract infection) (Acute) -due to stop abx -given no fractures on CT scan, would still consider gout and start colchicine
[2016-06-25] MEDS: COLCHICINE 0.6 MG TABLET (FP) PO SCH (13:39)
[2016-06-25] MEDS: COLLAGENASE CLOSTRIDIUM HIST. 30 GRAMS TUBE TP SCH (13:40)
--- NOTE | 2016-06-25 16:27 | PN ---
Progress Note, Physician History of Present Illness: pain in the leg continues brace on the leg - Current Medication List Current Medications: Active Medications Acetaminophen (Tylenol -) 650 mg PO Q6H PRN PRN Reason: BACK PAIN Last Admin: 06/25/16 09:35 Dose: 650 mg Albuterol/Ipratropium (Duoneb -) 1 amp NEB Q6H PRN PRN Reason: WHEEZING Apixaban (Eliquis -) 2.5 mg PO BID [facility] Last Admin: 06/25/16 09:35 Dose: 2.5 mg Atorvastatin Calcium (Lipitor -) 10 mg PO HS [facility] Last Admin: 06/24/16 21:53 Dose: 10 mg Colchicine (Colcrys -) 0.6 mg PO DAILY [facility] Last Admin: 06/25/16 13:39 Dose: 0.6 mg Collagenase (Santyl -) 1 applic TP DAILY [facility] Last Admin: 06/25/16 13:40 Dose: 1 applic Docusate Sodium (Colace -) 100 mg PO DAILY [facility] Last Admin: 06/25/16 09:35 Dose: 100 mg Gabapentin (Neurontin -) 300 mg PO HS [facility] Last Admin: 06/24/16 21:53 Dose: 300 mg Gabapentin (Neurontin -) 100 mg PO DAILY [facility] Last Admin: 06/25/16 09:35 Dose: 100 mg Gentamicin Sulfate (Garamycin 0.1% Ointment -) 1 applic TP BID [facility] Last Admin: 06/25/16 09:37 Dose: Not Given Ertapenem 1 gm/ Sodium (Chloride) 50 mls @ 50 mls/hr IVPB DAILY [facility] PRN Reason: Protocol Last Admin: 06/25/16 09:37 Dose: 50 mls/hr Levothyroxine Sodium (Synthroid -) 100 mcg PO ACBK [facility] Last Admin: 06/25/16 06:30 Dose: 100 mcg Magnesium Oxide (Mag-Ox -) 400 mg PO BID [facility] Last Admin: 06/25/16 09:35 Dose: 400 mg Mirtazapine (Remeron -) 15 mg PO HS [facility] Last Admin: 06/24/16 21:54 Dose: 15 mg Ondansetron HCl (Zofran Injection) 4 mg IVPB Q6H PRN PRN Reason: NAUSEA Oxycodone HCl (Roxicodone -) 5 mg PO Q6H PRN PRN Reason: PAIN Last Admin: 06/25/16 09:34 Dose: 5 mg Pantoprazole Sodium (Protonix -) 40 mg PO DAILY [facility] Last Admin: 06/25/16 09:35 Dose: 40 mg Polyethylene Glycol (Miralax (For Daily Use) -) 17 gm PO BID [facility] Last Admin: 06/25/16 09:37 Dose: Not Given Potassium Phos/Sodium Phos (Phos-Nak Packet -) 1 packet PO TID [facility] Last Admin: 06/25/16 13:39 Dose: 1 packet - Objective Vital Signs: Vital Signs Temperature 98.0 F 06/25/16 14:00 Pulse Rate 80 06/25/16 14:00 Respiratory Rate 18 06/25/16 14:00 Blood Pressure 110/68 06/25/16 14:00 O2 Sat by Pulse Oximetry (%) 100 06/25/16 09:00 Constitutional: Yes: No Distress, Calm Cardiovascular: Yes: Regular Rate and Rhythm Respiratory: Yes: Regular, CTA Bilaterally Gastrointestinal: Yes: Normal Bowel Sounds, Soft Musculoskeletal: Yes: Other Extremities: Yes: Other (pain rt leg) Neurological: Yes: Alert, Oriented Psychiatric: Yes: Alert Labs: CBC, BMP 06/24/16 07:05 06/24/16 07:05 Assessment/Plan Problem List - Problems (1) UTI (urinary tract infection) Code(s): N39.0 - URINARY TRACT INFECTION, SITE NOT SPECIFIED (2) Heel ulceration Code(s): L97.409 - NON-PRS CHRONIC ULCER OF UNSP HEEL AND MIDFOOT W UNSP SEVERT (3) Atrial fibrillation Code(s): I48.91 - UNSPECIFIED ATRIAL FIBRILLATION Qualifiers: Atrial fibrillation type: paroxysmal Qualified Code(s): I48.0 - Paroxysmal atrial fibrillation (4) Hypercholesteremia Code(s): E78.0 - PURE HYPERCHOLESTEROLEMIA * DO NOT USE * (5) Hypertension Code(s): I10 - ESSENTIAL (PRIMARY) HYPERTENSION Qualifiers: Hypertension type: essential hypertension Qualified Code(s): I10 - Essential (primary) hypertension (6) Hypothyroid Code(s): E03.9 - HYPOTHYROIDISM, UNSPECIFIED Qualifiers: Hypothyroidism type: unspecified Qualified Code(s): E03.9 - Hypothyroidism, unspecified (7) Thrush, oral Code(s): B37.0 - CANDIDAL STOMATITIS plan stopped all abx physio
[2016-06-25] MEDS: MIRTAZAPINE 15 MG TABLET (FP) PO SCH (23:12)
[2016-06-25] MEDS: GABAPENTIN 300 MG CAPSULE (FP) PO SCH (23:12)
[2016-06-25] MEDS: ATORVASTATIN CA 10 MG TABLET (FP) PO SCH (23:12)
[2016-06-26] MEDS: LEVOTHYROXINE NA 100 MCG TABLET (FP) PO SCH (06:12)
[2016-06-26] MEDS: NAPH,MB-DB/K PH,MBDB POWDER PACKET PO SCH ×3 (06:13→23:02)
[2016-06-26 08:23] LABS: MCH 29.5 pg (25.7-33.7); MCHC 32.7 g/dl (32.0-36.0); MEAN CELL VOLUME 90.2 fl (80-96); MEAN PLT VOLUME 7.9 fl (7.5-11.1); PLATELET COUNT 255 K/MM3 (134-434); RDW 18.6 % (11.6-15.6); WHITE BLOOD COUNT 5.2 K/mm3 (4.0-10.0)
[2016-06-26 08:51] LABS: CREATININE 0.5 mg/dL (0.55-1.02)
[2016-06-26] MEDS ORDERED: PT OWN MED DRAWER 7, Y5N ONE (09:00)
[2016-06-26] MEDS: DOCUSATE SODIUM 100 MG CAPSULE (FP) PO SCH (09:08)
[2016-06-26] MEDS: oxyCODONE HCL 5 MG TABLET PO PRN (09:09)
[2016-06-26] MEDS: ACETAMINOPHEN 325 MG TABLET (FP) PO PRN (09:09)
[2016-06-26] MEDS: MAGNESIUM OXIDE 400 MG TABLET (FP) PO SCH ×2 (09:09→23:01)
[2016-06-26] MEDS: PANTOPRAZOLE 40 MG TABLET (FP) PO SCH (09:09)
[2016-06-26] MEDS: GABAPENTIN 100 MG CAPSULE (FP) PO SCH (09:09)
[2016-06-26] MEDS: APIXABAN 2.5 MG TABLET PO SCH ×2 (09:09→23:02)
[2016-06-26] MEDS: COLCHICINE 0.6 MG TABLET (FP) PO SCH (09:09)
[2016-06-26] MEDS: POLYETHYLENE GLYCOL 3350 119 GM BTL PO SCH ×2 (09:10→23:02)
[2016-06-26] MEDS: GENTAMICIN SO4 0.1% TOPICAL OINTMENT 15 GM/TUBE TUBE TP SCH ×2 (09:10→23:02)
[2016-06-26 10:44] LABS: METAMYELOCYTE 2 % (0-2); PLATELET ESTIMATE ADEQUATE (NORMAL)
--- NOTE | 2016-06-26 11:33 | PN ---
Progress Note, Physician History of Present Illness: stable leg pain complaint continues - Current Medication List Current Medications: Active Medications Acetaminophen (Tylenol -) 650 mg PO Q6H PRN PRN Reason: BACK PAIN Last Admin: 06/26/16 09:09 Dose: 650 mg Albuterol/Ipratropium (Duoneb -) 1 amp NEB Q6H PRN PRN Reason: WHEEZING Apixaban (Eliquis -) 2.5 mg PO BID [facility] Last Admin: 06/26/16 09:09 Dose: 2.5 mg Atorvastatin Calcium (Lipitor -) 10 mg PO HS [facility] Last Admin: 06/25/16 23:12 Dose: 10 mg Colchicine (Colcrys -) 0.6 mg PO DAILY [facility] Last Admin: 06/26/16 09:09 Dose: 0.6 mg Collagenase (Santyl -) 1 applic TP DAILY [facility] Last Admin: 06/25/16 13:40 Dose: 1 applic Docusate Sodium (Colace -) 100 mg PO DAILY [facility] Last Admin: 06/26/16 09:08 Dose: 100 mg Gabapentin (Neurontin -) 300 mg PO HS [facility] Last Admin: 06/25/16 23:12 Dose: 300 mg Gabapentin (Neurontin -) 100 mg PO DAILY [facility] Last Admin: 06/26/16 09:09 Dose: 100 mg Gentamicin Sulfate (Garamycin 0.1% Ointment -) 1 applic TP BID [facility] Last Admin: 06/26/16 09:10 Dose: Not Given Levothyroxine Sodium (Synthroid -) 100 mcg PO ACBK [facility] Last Admin: 06/26/16 06:12 Dose: 100 mcg Magnesium Oxide (Mag-Ox -) 400 mg PO BID [facility] Last Admin: 06/26/16 09:09 Dose: 400 mg Mirtazapine (Remeron -) 15 mg PO HS [facility] Last Admin: 06/25/16 23:12 Dose: 15 mg Ondansetron HCl (Zofran Injection) 4 mg IVPB Q6H PRN PRN Reason: NAUSEA Oxycodone HCl (Roxicodone -) 5 mg PO Q6H PRN PRN Reason: PAIN Last Admin: 06/26/16 09:09 Dose: 5 mg Pantoprazole Sodium (Protonix -) 40 mg PO DAILY [facility] Last Admin: 06/26/16 09:09 Dose: 40 mg Polyethylene Glycol (Miralax (For Daily Use) -) 17 gm PO BID [facility] Last Admin: 06/26/16 09:10 Dose: 17 gm Potassium Phos/Sodium Phos (Phos-Nak Packet -) 1 packet PO TID [facility] Last Admin: 06/26/16 06:13 Dose: 1 packet - Objective Vital Signs: Vital Signs Temperature 97.3 F L 06/26/16 10:00 Pulse Rate 72 06/26/16 10:00 Respiratory Rate 18 06/26/16 10:00 Blood Pressure 109/66 06/26/16 10:00 O2 Sat by Pulse Oximetry (%) 98 06/25/16 21:00 Constitutional: Yes: No Distress, Calm Cardiovascular: Yes: Regular Rate and Rhythm Respiratory: Yes: Regular, CTA Bilaterally Gastrointestinal: Yes: Normal Bowel Sounds, Soft Musculoskeletal: Yes: Other Extremities: Yes: Other (pain) Neurological: Yes: Alert, Oriented Psychiatric: Yes: Alert, Oriented Labs: CBC, BMP 06/26/16 06:35 06/26/16 06:35 Assessment/Plan Problem List - Problems (1) UTI (urinary tract infection) Code(s): N39.0 - URINARY TRACT INFECTION, SITE NOT SPECIFIED (2) Heel ulceration Code(s): L97.409 - NON-PRS CHRONIC ULCER OF UNSP HEEL AND MIDFOOT W UNSP SEVERT (3) Atrial fibrillation Code(s): I48.91 - UNSPECIFIED ATRIAL FIBRILLATION Qualifiers: Atrial fibrillation type: paroxysmal Qualified Code(s): I48.0 - Paroxysmal atrial fibrillation (4) Hypercholesteremia Code(s): E78.0 - PURE HYPERCHOLESTEROLEMIA * DO NOT USE * (5) Hypertension Code(s): I10 - ESSENTIAL (PRIMARY) HYPERTENSION Qualifiers: Hypertension type: essential hypertension Qualified Code(s): I10 - Essential (primary) hypertension (6) Hypothyroid Code(s): E03.9 - HYPOTHYROIDISM, UNSPECIFIED Qualifiers: Hypothyroidism type: unspecified Qualified Code(s): E03.9 - Hypothyroidism, unspecified (7) Thrush, oral Code(s): B37.0 - CANDIDAL STOMATITIS plan stopped all abx physio will monitor leg support with the brace plan to do mri
--- NOTE | 2016-06-26 12:29 | PN ---
Progress Note, Physician History of Present Illness: Continues to c/o right ankle pain. CT was negative for bony abnormality but did note MRI as being more sensitive. Unable to walk on leg due to pain. No fevers, off abx now. - Current Medication List Current Medications: Active Medications Acetaminophen (Tylenol -) 650 mg PO Q6H PRN PRN Reason: BACK PAIN Last Admin: 06/26/16 09:09 Dose: 650 mg Albuterol/Ipratropium (Duoneb -) 1 amp NEB Q6H PRN PRN Reason: WHEEZING Apixaban (Eliquis -) 2.5 mg PO BID [facility] Last Admin: 06/26/16 09:09 Dose: 2.5 mg Atorvastatin Calcium (Lipitor -) 10 mg PO HS [facility] Last Admin: 06/25/16 23:12 Dose: 10 mg Colchicine (Colcrys -) 0.6 mg PO DAILY [facility] Last Admin: 06/26/16 09:09 Dose: 0.6 mg Collagenase (Santyl -) 1 applic TP DAILY [facility] Last Admin: 06/25/16 13:40 Dose: 1 applic Docusate Sodium (Colace -) 100 mg PO DAILY [facility] Last Admin: 06/26/16 09:08 Dose: 100 mg Gabapentin (Neurontin -) 300 mg PO HS [facility] Last Admin: 06/25/16 23:12 Dose: 300 mg Gabapentin (Neurontin -) 100 mg PO DAILY [facility] Last Admin: 06/26/16 09:09 Dose: 100 mg Gentamicin Sulfate (Garamycin 0.1% Ointment -) 1 applic TP BID [facility] Last Admin: 06/26/16 09:10 Dose: Not Given Levothyroxine Sodium (Synthroid -) 100 mcg PO ACBK [facility] Last Admin: 06/26/16 06:12 Dose: 100 mcg Magnesium Oxide (Mag-Ox -) 400 mg PO BID [facility] Last Admin: 06/26/16 09:09 Dose: 400 mg Mirtazapine (Remeron -) 15 mg PO HS [facility] Last Admin: 06/25/16 23:12 Dose: 15 mg Ondansetron HCl (Zofran Injection) 4 mg IVPB Q6H PRN PRN Reason: NAUSEA Oxycodone HCl (Roxicodone -) 5 mg PO Q6H PRN PRN Reason: PAIN Last Admin: 06/26/16 09:09 Dose: 5 mg Pantoprazole Sodium (Protonix -) 40 mg PO DAILY [facility] Last Admin: 06/26/16 09:09 Dose: 40 mg Polyethylene Glycol (Miralax (For Daily Use) -) 17 gm PO BID [facility] Last Admin: 06/26/16 09:10 Dose: 17 gm Potassium Phos/Sodium Phos (Phos-Nak Packet -) 1 packet PO TID [facility] Last Admin: 06/26/16 06:13 Dose: 1 packet - Objective Vital Signs: Vital Signs Temperature 97.3 F L 06/26/16 10:00 Pulse Rate 72 06/26/16 10:00 Respiratory Rate 18 06/26/16 10:00 Blood Pressure 109/66 06/26/16 10:00 O2 Sat by Pulse Oximetry (%) 98 06/25/16 21:00 Constitutional: Yes: No Distress, Calm Cardiovascular: Yes: Regular Rate and Rhythm, S1, S2. No: Murmur Respiratory: Yes: Regular, CTA Bilaterally. No: Rales, Rhonchi, Wheezes Gastrointestinal: Yes: Normal Bowel Sounds, Soft. No: Distention, Tenderness Musculoskeletal: Yes: Joint Stiffness (and pain right ankle) Edema: No Neurological: Yes: Alert, Oriented Labs: CBC, BMP 06/26/16 06:35 06/26/16 06:35 Assessment/Plan Current Active Problems Dehydration (Acute) Heel ulceration (Acute) Pyelonephritis, acute (Acute) Thrush, oral (Acute) UTI (urinary tract infection) (Acute) -abx stopped -with continued pain will need to check MRI so can safely start to work on physical therapy again if no fracture and no joint infection present.
[2016-06-26] MEDS: COLLAGENASE CLOSTRIDIUM HIST. 30 GRAMS TUBE TP SCH (13:59)
[2016-06-26] MEDS: ATORVASTATIN CA 10 MG TABLET (FP) PO SCH (23:01)
[2016-06-26] MEDS: MIRTAZAPINE 15 MG TABLET (FP) PO SCH (23:01)
[2016-06-26] MEDS: GABAPENTIN 300 MG CAPSULE (FP) PO SCH (23:01)
[2016-06-27] MEDS: NAPH,MB-DB/K PH,MBDB POWDER PACKET PO SCH ×4 (06:11→23:00)
[2016-06-27] MEDS: LEVOTHYROXINE NA 100 MCG TABLET (FP) PO SCH (06:11)
[2016-06-27] MEDS: CHOLECALCIFEROL (VITAMIN D3) 1,000 UNIT TABLET (FP) PO SCH (10:45)
[2016-06-27] MEDS: COLLAGENASE CLOSTRIDIUM HIST. 30 GRAMS TUBE TP SCH (10:45)
[2016-06-27] MEDS ORDERED: PT OWN MED DRAWER 7, Y5N ONE (11:00)
[2016-06-27] MEDS: PANTOPRAZOLE 40 MG TABLET (FP) PO SCH (11:05)
[2016-06-27] MEDS: DOCUSATE SODIUM 100 MG CAPSULE (FP) PO SCH (11:05)
[2016-06-27] MEDS: GABAPENTIN 100 MG CAPSULE (FP) PO SCH (11:05)
[2016-06-27] MEDS: MAGNESIUM OXIDE 400 MG TABLET (FP) PO SCH ×2 (11:05→22:59)
[2016-06-27] MEDS: COLCHICINE 0.6 MG TABLET (FP) PO SCH (11:05)
[2016-06-27] MEDS: APIXABAN 2.5 MG TABLET PO SCH ×2 (11:06→23:26)
[2016-06-27] MEDS: GENTAMICIN SO4 0.1% TOPICAL OINTMENT 15 GM/TUBE TUBE TP SCH ×2 (12:15→23:00)
[2016-06-27] MEDS: POLYETHYLENE GLYCOL 3350 119 GM BTL PO SCH ×2 (12:15→23:00)
--- NOTE | 2016-06-27 12:58 | PN ---
Progress Note, Physician Chief Complaint: Ms Mei continues to have foot pain when walking. No cp, sob, n/v. - Current Medication List Current Medications: Active Medications Acetaminophen (Tylenol -) 650 mg PO Q6H PRN PRN Reason: BACK PAIN Last Admin: 06/26/16 09:09 Dose: 650 mg Albuterol/Ipratropium (Duoneb -) 1 amp NEB Q6H PRN PRN Reason: WHEEZING Apixaban (Eliquis -) 2.5 mg PO BID [facility] Last Admin: 06/27/16 11:06 Dose: 2.5 mg Atorvastatin Calcium (Lipitor -) 10 mg PO HS [facility] Last Admin: 06/26/16 23:01 Dose: 10 mg Cholecalciferol (Vitamin D3 -) 1,000 unit PO DAILY [facility] Last Admin: 06/27/16 10:45 Dose: 1,000 unit Colchicine (Colcrys -) 0.6 mg PO DAILY [facility] Last Admin: 06/27/16 11:05 Dose: 0.6 mg Collagenase (Santyl -) 1 applic TP DAILY [facility] Last Admin: 06/27/16 10:45 Dose: 1 applic Docusate Sodium (Colace -) 100 mg PO DAILY [facility] Last Admin: 06/27/16 11:05 Dose: 100 mg Gabapentin (Neurontin -) 300 mg PO HS [facility] Last Admin: 06/26/16 23:01 Dose: 300 mg Gabapentin (Neurontin -) 100 mg PO DAILY [facility] Last Admin: 06/27/16 11:05 Dose: 100 mg Gentamicin Sulfate (Garamycin 0.1% Ointment -) 1 applic TP BID [facility] Last Admin: 06/27/16 12:15 Dose: 1 applic Levothyroxine Sodium (Synthroid -) 100 mcg PO ACBK [facility] Last Admin: 06/27/16 06:11 Dose: 100 mcg Magnesium Oxide (Mag-Ox -) 400 mg PO BID [facility] Last Admin: 06/27/16 11:05 Dose: 400 mg Mirtazapine (Remeron -) 15 mg PO HS [facility] Last Admin: 06/26/16 23:01 Dose: 15 mg Ondansetron HCl (Zofran Injection) 4 mg IVPB Q6H PRN PRN Reason: NAUSEA Oxycodone HCl (Roxicodone -) 5 mg PO Q6H PRN PRN Reason: PAIN Last Admin: 06/26/16 09:09 Dose: 5 mg Pantoprazole Sodium (Protonix -) 40 mg PO DAILY [facility] Last Admin: 06/27/16 11:05 Dose: 40 mg Polyethylene Glycol (Miralax (For Daily Use) -) 17 gm PO BID [facility] Last Admin: 06/27/16 12:15 Dose: Not Given Potassium Phos/Sodium Phos (Phos-Nak Packet -) 1 packet PO TID [facility] Last Admin: 06/27/16 06:12 Dose: Not Given - Objective Vital Signs: Vital Signs Temperature 97.6 F 06/27/16 06:00 Pulse Rate 84 06/27/16 06:00 Respiratory Rate 18 06/27/16 06:00 Blood Pressure 119/71 06/27/16 06:00 O2 Sat by Pulse Oximetry (%) 98 06/26/16 21:00 Constitutional: Yes: Well Nourished, No Distress, Calm Cardiovascular: Yes: Pulse Irregular. No: Tachycardia, Gallop, Murmur, Rub Respiratory: Yes: Regular, CTA Bilaterally. No: Rales, Rhonchi, Wheezes Gastrointestinal: Yes: Normal Bowel Sounds, Soft. No: Distention, Tenderness Extremities: Yes: WNL Edema: No Labs: CBC, BMP 06/26/16 06:35 06/26/16 06:35 Problem List - Problems (1) UTI (urinary tract infection) Code(s): N39.0 - URINARY TRACT INFECTION, SITE NOT SPECIFIED (2) Heel ulceration Code(s): L97.409 - NON-PRS CHRONIC ULCER OF UNSP HEEL AND MIDFOOT W UNSP SEVERT (3) Atrial fibrillation Code(s): I48.91 - UNSPECIFIED ATRIAL FIBRILLATION Qualifiers: Atrial fibrillation type: paroxysmal Qualified Code(s): I48.0 - Paroxysmal atrial fibrillation (4) Hypercholesteremia Code(s): E78.0 - PURE HYPERCHOLESTEROLEMIA * DO NOT USE * (5) Hypertension Code(s): I10 - ESSENTIAL (PRIMARY) HYPERTENSION Qualifiers: Hypertension type: essential hypertension Qualified Code(s): I10 - Essential (primary) hypertension (6) Hypothyroid Code(s): E03.9 - HYPOTHYROIDISM, UNSPECIFIED Qualifiers: Hypothyroidism type: unspecified Qualified Code(s): E03.9 - Hypothyroidism, unspecified (7) Thrush, oral Code(s): B37.0 - CANDIDAL STOMATITIS Assessment/Plan (1) UTI (urinary tract infection) Assessment/Plan: -finished full course of antibiotics Code(s): N39.0 - URINARY TRACT INFECTION, SITE NOT SPECIFIED (2) Heel ulceration Assessment/Plan: -patient continues to have foot pain when walking -CT scan negative -MRI showing edema at wound site and small spur -uric acid normal, colchicine does not change the pain -will obtain arterial doppler, ? if decreased blood flow -continue PT Code(s): L97.409 - NON-PRS CHRONIC ULCER OF UNSP HEEL AND MIDFOOT W UNSP SEVERT (3) Atrial fibrillation Assessment/Plan: -currently rate controlled -continue eliquis Code(s): I48.91 - UNSPECIFIED ATRIAL FIBRILLATION Qualifiers: Atrial fibrillation type: paroxysmal Qualified Code(s): I48.0 - Paroxysmal atrial fibrillation (4) Hypercholesteremia Assessment/Plan: -continue statin Code(s): E78.0 - PURE HYPERCHOLESTEROLEMIA * DO NOT USE * (5) Hypertension Assessment/Plan: -well controlled Code(s): I10 - ESSENTIAL (PRIMARY) HYPERTENSION Qualifiers: Hypertension type: essential hypertension Qualified Code(s): I10 - Essential (primary) hypertension (6) Hypothyroid Assessment/Plan: -continue synthroid Code(s): E03.9 - HYPOTHYROIDISM, UNSPECIFIED Qualifiers: Hypothyroidism type: unspecified Qualified Code(s): E03.9 - Hypothyroidism, unspecified (7) Thrush -s/p nystatin
--- NOTE | 2016-06-27 13:34 | PN ---
Progress Note, Physician History of Present Illness: stable leg pain still present - Current Medication List Current Medications: Active Medications Acetaminophen (Tylenol -) 650 mg PO Q6H PRN PRN Reason: BACK PAIN Last Admin: 06/26/16 09:09 Dose: 650 mg Albuterol/Ipratropium (Duoneb -) 1 amp NEB Q6H PRN PRN Reason: WHEEZING Apixaban (Eliquis -) 2.5 mg PO BID [facility] Last Admin: 06/27/16 11:06 Dose: 2.5 mg Atorvastatin Calcium (Lipitor -) 10 mg PO HS [facility] Last Admin: 06/26/16 23:01 Dose: 10 mg Cholecalciferol (Vitamin D3 -) 1,000 unit PO DAILY [facility] Last Admin: 06/27/16 10:45 Dose: 1,000 unit Colchicine (Colcrys -) 0.6 mg PO DAILY [facility] Last Admin: 06/27/16 11:05 Dose: 0.6 mg Collagenase (Santyl -) 1 applic TP DAILY [facility] Last Admin: 06/27/16 10:45 Dose: 1 applic Docusate Sodium (Colace -) 100 mg PO DAILY [facility] Last Admin: 06/27/16 11:05 Dose: 100 mg Gabapentin (Neurontin -) 300 mg PO HS [facility] Last Admin: 06/26/16 23:01 Dose: 300 mg Gabapentin (Neurontin -) 100 mg PO DAILY [facility] Last Admin: 06/27/16 11:05 Dose: 100 mg Gentamicin Sulfate (Garamycin 0.1% Ointment -) 1 applic TP BID [facility] Last Admin: 06/27/16 12:15 Dose: 1 applic Levothyroxine Sodium (Synthroid -) 100 mcg PO ACBK [facility] Last Admin: 06/27/16 06:11 Dose: 100 mcg Magnesium Oxide (Mag-Ox -) 400 mg PO BID [facility] Last Admin: 06/27/16 11:05 Dose: 400 mg Mirtazapine (Remeron -) 15 mg PO HS [facility] Last Admin: 06/26/16 23:01 Dose: 15 mg Ondansetron HCl (Zofran Injection) 4 mg IVPB Q6H PRN PRN Reason: NAUSEA Oxycodone HCl (Roxicodone -) 5 mg PO Q6H PRN PRN Reason: PAIN Last Admin: 06/26/16 09:09 Dose: 5 mg Pantoprazole Sodium (Protonix -) 40 mg PO DAILY [facility] Last Admin: 06/27/16 11:05 Dose: 40 mg Polyethylene Glycol (Miralax (For Daily Use) -) 17 gm PO BID [facility] Last Admin: 06/27/16 12:15 Dose: Not Given Potassium Phos/Sodium Phos (Phos-Nak Packet -) 1 packet PO TID [facility] Last Admin: 06/27/16 06:12 Dose: Not Given - Objective Vital Signs: Vital Signs Temperature 97.6 F 06/27/16 06:00 Pulse Rate 84 06/27/16 06:00 Respiratory Rate 18 06/27/16 06:00 Blood Pressure 119/71 06/27/16 06:00 O2 Sat by Pulse Oximetry (%) 98 06/26/16 21:00 Constitutional: Yes: No Distress, Calm Neck: Yes: Supple Cardiovascular: Yes: Regular Rate and Rhythm Respiratory: Yes: Regular, CTA Bilaterally Gastrointestinal: Yes: Normal Bowel Sounds, Soft ...Rectal Exam: Yes: Deferred Musculoskeletal: Yes: WNL Extremities: Yes: Other Neurological: Yes: Alert, Oriented Psychiatric: Yes: Alert Labs: CBC, BMP 06/26/16 06:35 06/26/16 06:35 Assessment/Plan Problem List - Problems (1) UTI (urinary tract infection) Code(s): N39.0 - URINARY TRACT INFECTION, SITE NOT SPECIFIED (2) Heel ulceration Code(s): L97.409 - NON-PRS CHRONIC ULCER OF UNSP HEEL AND MIDFOOT W UNSP SEVERT (3) Atrial fibrillation Code(s): I48.91 - UNSPECIFIED ATRIAL FIBRILLATION Qualifiers: Atrial fibrillation type: paroxysmal Qualified Code(s): I48.0 - Paroxysmal atrial fibrillation (4) Hypercholesteremia Code(s): E78.0 - PURE HYPERCHOLESTEROLEMIA * DO NOT USE * (5) Hypertension Code(s): I10 - ESSENTIAL (PRIMARY) HYPERTENSION Qualifiers: Hypertension type: essential hypertension Qualified Code(s): I10 - Essential (primary) hypertension (6) Hypothyroid Code(s): E03.9 - HYPOTHYROIDISM, UNSPECIFIED Qualifiers: Hypothyroidism type: unspecified Qualified Code(s): E03.9 - Hypothyroidism, unspecified (7) Thrush, oral Code(s): B37.0 - CANDIDAL STOMATITIS Mri result noted no finding plan continue current mgmt supportive care physio rest as per the teams
[2016-06-27] MEDS: GABAPENTIN 300 MG CAPSULE (FP) PO SCH (22:59)
[2016-06-27] MEDS: ATORVASTATIN CA 10 MG TABLET (FP) PO SCH (22:59)
[2016-06-27] MEDS: MIRTAZAPINE 15 MG TABLET (FP) PO SCH (23:00)
[2016-06-28] MEDS: LEVOTHYROXINE NA 100 MCG TABLET (FP) PO SCH (06:39)
[2016-06-28] MEDS: NAPH,MB-DB/K PH,MBDB POWDER PACKET PO SCH ×3 (06:39→22:30)
[2016-06-28 08:06] LABS: BASOPHIL 0.9 % (0-2.0); CALCIUM 7.9 mg/dL (8.5-10.1); CREATININE 0.5 mg/dL (0.55-1.02); EOSINOPHIL 2.7 % (0-4.5); MAGNESIUM 2.3 mg/dL (1.8-2.4); MCH 29.2 pg (25.7-33.7); MCHC 32.8 g/dl (32.0-36.0); MEAN CELL VOLUME 89.2 fl (80-96); MEAN PLT VOLUME 8.2 fl (7.5-11.1); PHOSPHOROUS 2.3 mg/dL (2.5-4.9); PLATELET COUNT 246 K/MM3 (134-434); WHITE BLOOD COUNT 6.5 K/mm3 (4.0-10.0)
[2016-06-28] MEDS: ACETAMINOPHEN 325 MG TABLET (FP) PO PRN (10:09)
[2016-06-28] MEDS: GABAPENTIN 100 MG CAPSULE (FP) PO SCH (10:09)
[2016-06-28] MEDS: DOCUSATE SODIUM 100 MG CAPSULE (FP) PO SCH (10:09)
[2016-06-28] MEDS: MAGNESIUM OXIDE 400 MG TABLET (FP) PO SCH ×2 (10:10→22:26)
[2016-06-28] MEDS: PANTOPRAZOLE 40 MG TABLET (FP) PO SCH (10:10)
[2016-06-28] MEDS: POLYETHYLENE GLYCOL 3350 119 GM BTL PO SCH ×2 (10:10→22:27)
[2016-06-28] MEDS: GENTAMICIN SO4 0.1% TOPICAL OINTMENT 15 GM/TUBE TUBE TP SCH ×2 (10:10→22:30)
[2016-06-28] MEDS: COLLAGENASE CLOSTRIDIUM HIST. 30 GRAMS TUBE TP SCH (10:10)
[2016-06-28] MEDS: CHOLECALCIFEROL (VITAMIN D3) 1,000 UNIT TABLET (FP) PO SCH (10:10)
[2016-06-28] MEDS: APIXABAN 2.5 MG TABLET PO SCH ×2 (10:18→22:26)
--- NOTE | 2016-06-28 14:49 | PN ---
Progress Note, Physician History of Present Illness: stable except leg pain - Current Medication List Current Medications: Active Medications Acetaminophen (Tylenol -) 650 mg PO Q6H PRN PRN Reason: BACK PAIN Last Admin: 06/28/16 10:09 Dose: 650 mg Albuterol/Ipratropium (Duoneb -) 1 amp NEB Q6H PRN PRN Reason: WHEEZING Apixaban (Eliquis -) 2.5 mg PO BID [facility] Last Admin: 06/28/16 10:18 Dose: 2.5 mg Atorvastatin Calcium (Lipitor -) 10 mg PO HS [facility] Last Admin: 06/27/16 22:59 Dose: 10 mg Cholecalciferol (Vitamin D3 -) 1,000 unit PO DAILY [facility] Last Admin: 06/28/16 10:10 Dose: 1,000 unit Collagenase (Santyl -) 1 applic TP DAILY [facility] Last Admin: 06/28/16 10:10 Dose: 1 applic Docusate Sodium (Colace -) 100 mg PO DAILY [facility] Last Admin: 06/28/16 10:09 Dose: Not Given Gabapentin (Neurontin -) 300 mg PO HS [facility] Last Admin: 06/27/16 22:59 Dose: 300 mg Gabapentin (Neurontin -) 100 mg PO DAILY [facility] Last Admin: 06/28/16 10:09 Dose: 100 mg Gentamicin Sulfate (Garamycin 0.1% Ointment -) 1 applic TP BID [facility] Last Admin: 06/28/16 10:10 Dose: 1 applic Levothyroxine Sodium (Synthroid -) 100 mcg PO ACBK [facility] Last Admin: 06/28/16 06:39 Dose: 100 mcg Magnesium Oxide (Mag-Ox -) 400 mg PO BID [facility] Last Admin: 06/28/16 10:10 Dose: 400 mg Mirtazapine (Remeron -) 15 mg PO HS [facility] Last Admin: 06/27/16 23:00 Dose: 15 mg Ondansetron HCl (Zofran Injection) 4 mg IVPB Q6H PRN PRN Reason: NAUSEA Oxycodone HCl (Roxicodone -) 5 mg PO Q6H PRN PRN Reason: PAIN Last Admin: 06/26/16 09:09 Dose: 5 mg Pantoprazole Sodium (Protonix -) 40 mg PO DAILY [facility] Last Admin: 06/28/16 10:10 Dose: 40 mg Polyethylene Glycol (Miralax (For Daily Use) -) 17 gm PO BID [facility] Last Admin: 06/28/16 10:10 Dose: Not Given Potassium Phos/Sodium Phos (Phos-Nak Packet -) 1 packet PO TID [facility] Last Admin: 06/28/16 06:39 Dose: 1 packet - Objective Vital Signs: Vital Signs Temperature 97.8 F 06/28/16 14:39 Pulse Rate 83 06/28/16 14:39 Respiratory Rate 20 06/28/16 14:39 Blood Pressure 103/66 06/28/16 14:39 O2 Sat by Pulse Oximetry (%) 96 06/27/16 21:00 Constitutional: Yes: No Distress, Calm Neck: Yes: Supple Cardiovascular: Yes: Regular Rate and Rhythm Respiratory: Yes: Regular, CTA Bilaterally Gastrointestinal: Yes: Normal Bowel Sounds, Soft Musculoskeletal: Yes: Muscle Pain, Other Extremities: Yes: Other Neurological: Yes: Alert, Oriented Psychiatric: Yes: Alert Labs: CBC, BMP 06/28/16 06:00 06/28/16 06:00 Assessment/Plan Problem List - Problems (1) UTI (urinary tract infection) Code(s): N39.0 - URINARY TRACT INFECTION, SITE NOT SPECIFIED (2) Heel ulceration Code(s): L97.409 - NON-PRS CHRONIC ULCER OF UNSP HEEL AND MIDFOOT W UNSP SEVERT (3) Atrial fibrillation Code(s): I48.91 - UNSPECIFIED ATRIAL FIBRILLATION Qualifiers: Atrial fibrillation type: paroxysmal Qualified Code(s): I48.0 - Paroxysmal atrial fibrillation (4) Hypercholesteremia Code(s): E78.0 - PURE HYPERCHOLESTEROLEMIA * DO NOT USE * (5) Hypertension Code(s): I10 - ESSENTIAL (PRIMARY) HYPERTENSION Qualifiers: Hypertension type: essential hypertension Qualified Code(s): I10 - Essential (primary) hypertension (6) Hypothyroid Code(s): E03.9 - HYPOTHYROIDISM, UNSPECIFIED Qualifiers: Hypothyroidism type: unspecified Qualified Code(s): E03.9 - Hypothyroidism, unspecified (7) Thrush, oral Code(s): B37.0 - CANDIDAL STOMATITIS Mri result noted no finding plan continue supportive care pain mgmt leg support rest a sper primary
[2016-06-28] MEDS: oxyCODONE HCL 5 MG TABLET PO PRN (15:03)
--- NOTE | 2016-06-28 16:42 | PN ---
Progress Note, Physician Chief Complaint: Ms Mei continues to have foot pain when walking. No cp, sob, n/v and otherwise feels well. - Current Medication List Current Medications: Active Medications Acetaminophen (Tylenol -) 650 mg PO Q6H PRN PRN Reason: BACK PAIN Last Admin: 06/28/16 10:09 Dose: 650 mg Albuterol/Ipratropium (Duoneb -) 1 amp NEB Q6H PRN PRN Reason: WHEEZING Apixaban (Eliquis -) 2.5 mg PO BID [facility] Last Admin: 06/28/16 10:18 Dose: 2.5 mg Atorvastatin Calcium (Lipitor -) 10 mg PO HS [facility] Last Admin: 06/27/16 22:59 Dose: 10 mg Cholecalciferol (Vitamin D3 -) 1,000 unit PO DAILY [facility] Last Admin: 06/28/16 10:10 Dose: 1,000 unit Collagenase (Santyl -) 1 applic TP DAILY [facility] Last Admin: 06/28/16 10:10 Dose: 1 applic Docusate Sodium (Colace -) 100 mg PO DAILY [facility] Last Admin: 06/28/16 10:09 Dose: Not Given Gabapentin (Neurontin -) 300 mg PO HS [facility] Last Admin: 06/27/16 22:59 Dose: 300 mg Gabapentin (Neurontin -) 100 mg PO DAILY [facility] Last Admin: 06/28/16 10:09 Dose: 100 mg Gentamicin Sulfate (Garamycin 0.1% Ointment -) 1 applic TP BID [facility] Last Admin: 06/28/16 10:10 Dose: 1 applic Levothyroxine Sodium (Synthroid -) 100 mcg PO ACBK [facility] Last Admin: 06/28/16 06:39 Dose: 100 mcg Magnesium Oxide (Mag-Ox -) 400 mg PO BID [facility] Last Admin: 06/28/16 10:10 Dose: 400 mg Mirtazapine (Remeron -) 15 mg PO HS [facility] Last Admin: 06/27/16 23:00 Dose: 15 mg Ondansetron HCl (Zofran Injection) 4 mg IVPB Q6H PRN PRN Reason: NAUSEA Oxycodone HCl (Roxicodone -) 5 mg PO Q6H PRN PRN Reason: PAIN Last Admin: 06/28/16 15:03 Dose: 5 mg Pantoprazole Sodium (Protonix -) 40 mg PO DAILY [facility] Last Admin: 06/28/16 10:10 Dose: 40 mg Polyethylene Glycol (Miralax (For Daily Use) -) 17 gm PO BID [facility] Last Admin: 06/28/16 10:10 Dose: Not Given Potassium Phos/Sodium Phos (Phos-Nak Packet -) 1 packet PO TID [facility] Last Admin: 06/28/16 15:04 Dose: 1 packet - Objective Vital Signs: Vital Signs Temperature 97.8 F 06/28/16 14:39 Pulse Rate 83 06/28/16 14:39 Respiratory Rate 20 06/28/16 14:39 Blood Pressure 103/66 06/28/16 14:39 O2 Sat by Pulse Oximetry (%) 96 06/27/16 21:00 Constitutional: Yes: Well Nourished, No Distress, Calm Cardiovascular: Yes: Regular Rate and Rhythm. No: Gallop, Murmur, Rub Respiratory: Yes: Regular, CTA Bilaterally. No: Rales, Rhonchi, Wheezes Gastrointestinal: Yes: Normal Bowel Sounds, Soft. No: Distention, Tenderness Extremities: Yes: WNL Edema: No Labs: CBC, BMP 06/28/16 06:00 06/28/16 06:00 Problem List - Problems (1) UTI (urinary tract infection) Code(s): N39.0 - URINARY TRACT INFECTION, SITE NOT SPECIFIED (2) Heel ulceration Code(s): L97.409 - NON-PRS CHRONIC ULCER OF UNSP HEEL AND MIDFOOT W UNSP SEVERT (3) Atrial fibrillation Code(s): I48.91 - UNSPECIFIED ATRIAL FIBRILLATION Qualifiers: Atrial fibrillation type: paroxysmal Qualified Code(s): I48.0 - Paroxysmal atrial fibrillation (4) Hypercholesteremia Code(s): E78.0 - PURE HYPERCHOLESTEROLEMIA * DO NOT USE * (5) Hypertension Code(s): I10 - ESSENTIAL (PRIMARY) HYPERTENSION Qualifiers: Hypertension type: essential hypertension Qualified Code(s): I10 - Essential (primary) hypertension (6) Hypothyroid Code(s): E03.9 - HYPOTHYROIDISM, UNSPECIFIED Qualifiers: Hypothyroidism type: unspecified Qualified Code(s): E03.9 - Hypothyroidism, unspecified (7) Thrush, oral Code(s): B37.0 - CANDIDAL STOMATITIS Assessment/Plan (1) UTI (urinary tract infection) Assessment/Plan: -finished full course of antibiotics Code(s): N39.0 - URINARY TRACT INFECTION, SITE NOT SPECIFIED (2) Heel ulceration Assessment/Plan: -currently all work up negative except for ulceration and small heel spur -podiatry consulted, await recommendations Code(s): L97.409 - NON-PRS CHRONIC ULCER OF UNSP HEEL AND MIDFOOT W UNSP SEVERT (3) Atrial fibrillation Assessment/Plan: -currently rate controlled -continue eliquis Code(s): I48.91 - UNSPECIFIED ATRIAL FIBRILLATION Qualifiers: Atrial fibrillation type: paroxysmal Qualified Code(s): I48.0 - Paroxysmal atrial fibrillation (4) Hypercholesteremia Assessment/Plan: -continue statin Code(s): E78.0 - PURE HYPERCHOLESTEROLEMIA * DO NOT USE * (5) Hypertension Assessment/Plan: -well controlled Code(s): I10 - ESSENTIAL (PRIMARY) HYPERTENSION Qualifiers: Hypertension type: essential hypertension Qualified Code(s): I10 - Essential (primary) hypertension (6) Hypothyroid Assessment/Plan: -continue synthroid Code(s): E03.9 - HYPOTHYROIDISM, UNSPECIFIED Qualifiers: Hypothyroidism type: unspecified Qualified Code(s): E03.9 - Hypothyroidism, unspecified (7) Thrush -s/p nystatin
[2016-06-28] MEDS: ATORVASTATIN CA 10 MG TABLET (FP) PO SCH (22:26)
[2016-06-28] MEDS: MIRTAZAPINE 15 MG TABLET (FP) PO SCH (22:26)
[2016-06-28] MEDS: GABAPENTIN 300 MG CAPSULE (FP) PO SCH (22:26)
[2016-06-29] MEDS: LEVOTHYROXINE NA 100 MCG TABLET (FP) PO SCH (06:26)
[2016-06-29] MEDS: NAPH,MB-DB/K PH,MBDB POWDER PACKET PO SCH ×2 (06:26→15:26)
[2016-06-29 07:35] LABS: BASOPHIL 1.3 % (0-2.0); EOSINOPHIL 3.5 % (0-4.5); MCH 28.9 pg (25.7-33.7); MCHC 32.6 g/dl (32.0-36.0); MEAN CELL VOLUME 88.8 fl (80-96); MEAN PLT VOLUME 7.9 fl (7.5-11.1); NEUTROPHILS 52.2 % (42.8-82.8); PLATELET COUNT 244 K/MM3 (134-434); RDW 17.8 % (11.6-15.6); WHITE BLOOD COUNT 5.9 K/mm3 (4.0-10.0)
[2016-06-29 07:44] LABS: CALCIUM 7.5 mg/dL (8.5-10.1); CREATININE 0.5 mg/dL (0.55-1.02); MAGNESIUM 1.9 mg/dL (1.8-2.4); PHOSPHOROUS 2.8 mg/dL (2.5-4.9)
--- NOTE | 2016-06-29 08:49 | CONSULT ---
Consult - text type - Consultation Consultation Note: Podiatry Consultation: 89 year old F, admission for UTI, presents with R lateral heel wound x few weeks. Patient is s/p knee ORIF in April, per patient. She had an immobilizing brace on and developed irritation to the heel subsequent to brace use. Does have drop foot, which exacerbated condition. Denies F/V/N/C/SOB/CP. PMHx: CAD, angina pectoris, MVP, HTN, HLP, hypothyroid Meds: noted in chart ALL: cipro, PCN, codeine [place]IA [place] CARMEN: Pedal pulses 1/4 bilaterally, TG wnl, CFT brisk to all toes. On the right foot , there is a superficial ulcer on the lateral aspect of the heel. There is moderate tenderness to palpation of the wound. There is minimal periwound erythema. The wound does not probe to bone, there is fibrotic base with superficial eschar. There is no fluctuance, no purulent drainage, no ascending cellulitis, no signs of active infection. There is moderate pedal edema. There is moderate tenderness to palpation of plantar medial calcaneus. WBC: 5.9 R foot MRI: no evidence of osteomyelitis R foot XR: calcaneal spur RLE arterial duplex: no occlusions noted Imp: 89 year old F post-traumatic wound R heel and R plantar fasciitis 1. Would continue with santyl daily to R foot 2. Surgical shoe to bedside 3. Continue heel offloading boot and heel offloading measures 4. No signs of active infection, no need for acute intervention. The wound should heal well with good local wound care. 5. Upon discharge, can follow up at [facility] [phone] 6. Thanks for the courtesy of this consultation. Zoraida Frias DPM
[2016-06-29] MEDS ORDERED: PT OWN MED DRAWER 7, Y5N ONE (10:15)
[2016-06-29] MEDS: DOCUSATE SODIUM 100 MG CAPSULE (FP) PO SCH (10:17)
[2016-06-29] MEDS: GABAPENTIN 100 MG CAPSULE (FP) PO SCH (10:17)
[2016-06-29] MEDS: CHOLECALCIFEROL (VITAMIN D3) 1,000 UNIT TABLET (FP) PO SCH (10:17)
[2016-06-29] MEDS: PANTOPRAZOLE 40 MG TABLET (FP) PO SCH (10:17)
[2016-06-29] MEDS: APIXABAN 2.5 MG TABLET PO SCH (10:17)
[2016-06-29] MEDS: MAGNESIUM OXIDE 400 MG TABLET (FP) PO SCH (10:17)
[2016-06-29] MEDS: POLYETHYLENE GLYCOL 3350 119 GM BTL PO SCH (10:17)
--- NOTE | 2016-06-29 10:41 | DS ---
Physical Examination Vital Signs: Vital Signs Temperature 97.8 F 06/29/16 09:00 Pulse Rate 73 06/29/16 09:00 Respiratory Rate 18 06/29/16 09:00 Blood Pressure 108/60 06/29/16 09:00 O2 Sat by Pulse Oximetry (%) 100 06/29/16 09:00 Constitutional: Yes: Well Nourished, No Distress, Calm Cardiovascular: Yes: Regular Rate and Rhythm. No: Gallop, Murmur, Rub Respiratory: Yes: Regular, CTA Bilaterally. No: Rales, Rhonchi, Wheezes Gastrointestinal: Yes: Normal Bowel Sounds, Soft. No: Distention, Tenderness Extremities: Yes: WNL Edema: No Labs: CBC, BMP 06/29/16 06:00 06/29/16 06:00 Discharge Summary Reason For Visit: UTI/PYELONEPHRITIS DUE TO ESCH COLI Current Active Problems Dehydration (Acute) Heel ulceration (Acute) Pyelonephritis, acute (Acute) Thrush, oral (Acute) UTI (urinary tract infection) (Acute) Hospital Course: (1) UTI (urinary tract infection) Code(s): N39.0 - URINARY TRACT INFECTION, SITE NOT SPECIFIED (2) Heel ulceration Code(s): L97.409 - NON-PRS CHRONIC ULCER OF UNSP HEEL AND MIDFOOT W UNSP SEVERT (3) Atrial fibrillation Code(s): I48.91 - UNSPECIFIED ATRIAL FIBRILLATION Qualifiers: Atrial fibrillation type: paroxysmal Qualified Code(s): I48.0 - Paroxysmal atrial fibrillation (4) Hypercholesteremia Code(s): E78.0 - PURE HYPERCHOLESTEROLEMIA * DO NOT USE * (5) Hypertension Code(s): I10 - ESSENTIAL (PRIMARY) HYPERTENSION Qualifiers: Hypertension type: essential hypertension Qualified Code(s): I10 - Essential (primary) hypertension (6) Hypothyroid Code(s): E03.9 - HYPOTHYROIDISM, UNSPECIFIED Qualifiers: Hypothyroidism type: unspecified Qualified Code(s): E03.9 - Hypothyroidism, unspecified (7) Thrush, oral Code(s): B37.0 - CANDIDAL STOMATITIS Ms Mei is a very pleasant 89 year old female who comes in with foot pain and was found to have a ESBL e. coli UTI and a R heel wound with same infection. She was admitted to the hospital and seen by ID. She was treated with broad spectrum antibiotics and UTI resolved. Her foot was seen by wound care and local wound care was given. However in spite of treatment her foot pain did not improve. She underwent x-ray, CT scan, and MRI of the foot which revealed wound. She did not have gout as uric acid was normal. Trial of gabapentin did not relieve pain. She was seen by podiatry and cleared. Currently she is safe for discharge back to SNF. 35 minutes spent in preparation of this discharge Condition: Stable - Instructions Diet, Activity, Other Instructions: sodium controlled diet. Up with assistance, further activity per PT at SNF. Local wound care to RLE wound. Surgical boot to bedside. Offload heel. Referrals: Alfredo Fan MD [Primary Care Provider] - Gino Cadet MD [Staff Physician] - Jim Frias MD [Staff Physician] - Disposition: [facility] - Home Medications Comprehensive Discharge Medication List: Ambulatory Orders Aa/Hydrolyzed Collagen, Whey [Lps 15-30 Liquid] 960 ml PO DAILY 06/14/16 Acetaminophen [Tylenol] 650 mg PO QID 06/14/16 Albuterol 2.5/Ipratropium 0.5 [Duoneb -] 1 neb NEB Q4H 06/14/16 Apixaban [Eliquis] 2.5 mg PO BID 06/14/16 Atorvastatin Ca [Lipitor] 10 mg PO HS 06/14/16 Docusate Sodium 100 mg PO DAILY 06/14/16 Gentamicin 0.1% Ointment [Garamycin 0.1% Ointment -] 1 applic TP BID 06/14/16 Levothyroxine [Synthroid -] 100 mcg PO DAILY 06/14/16 Mirtazapine [Remeron -] 15 mg PO DAILY 06/14/16 Mirtazapine [Remeron -] 15 mg PO DAILY 06/14/16 Nitroglycerin [Nitrostat] 0.4 mg SL DAILY 06/14/16 Oxycodone HCl 5 mg PO DAILY 06/14/16 Pantoprazole Sodium [Protonix] 40 mg PO DAILY 06/14/16 Polyethylene Glycol 3350 [Purelax] 17 gm PO BID 06/14/16 Collagenase Clostridium Hist. [Santyl -] 1 applic TP DAILY tube 06/29/16 Oxycodone HCl [Roxicodone -] 5 mg PO Q6H PRN #0 tablet MDD 20mg 06/29/16
--- NOTE | 2016-06-29 13:42 | PN ---
Progress Note, Physician History of Present Illness: stable leg pain continues podiatry on case - Current Medication List Current Medications: Active Medications Acetaminophen (Tylenol -) 650 mg PO Q6H PRN PRN Reason: BACK PAIN Last Admin: 06/28/16 10:09 Dose: 650 mg Albuterol/Ipratropium (Duoneb -) 1 amp NEB Q6H PRN PRN Reason: WHEEZING Apixaban (Eliquis -) 2.5 mg PO BID [facility] Last Admin: 06/29/16 10:17 Dose: 2.5 mg Atorvastatin Calcium (Lipitor -) 10 mg PO HS [facility] Last Admin: 06/28/16 22:26 Dose: 10 mg Cholecalciferol (Vitamin D3 -) 1,000 unit PO DAILY [facility] Last Admin: 06/29/16 10:17 Dose: 1,000 unit Collagenase (Santyl -) 1 applic TP DAILY [facility] Last Admin: 06/28/16 10:10 Dose: 1 applic Docusate Sodium (Colace -) 100 mg PO DAILY [facility] Last Admin: 06/29/16 10:17 Dose: Not Given Gabapentin (Neurontin -) 300 mg PO HS [facility] Last Admin: 06/28/16 22:26 Dose: 300 mg Gabapentin (Neurontin -) 100 mg PO DAILY [facility] Last Admin: 06/29/16 10:17 Dose: 100 mg Gentamicin Sulfate (Garamycin 0.1% Ointment -) 1 applic TP BID [facility] Last Admin: 06/28/16 22:30 Dose: 1 applic Levothyroxine Sodium (Synthroid -) 100 mcg PO ACBK [facility] Last Admin: 06/29/16 06:26 Dose: 100 mcg Magnesium Oxide (Mag-Ox -) 400 mg PO BID [facility] Last Admin: 06/29/16 10:17 Dose: 400 mg Mirtazapine (Remeron -) 15 mg PO HS [facility] Last Admin: 06/28/16 22:26 Dose: 15 mg Ondansetron HCl (Zofran Injection) 4 mg IVPB Q6H PRN PRN Reason: NAUSEA Oxycodone HCl (Roxicodone -) 5 mg PO Q6H PRN PRN Reason: PAIN Last Admin: 06/28/16 15:03 Dose: 5 mg Pantoprazole Sodium (Protonix -) 40 mg PO DAILY [facility] Last Admin: 06/29/16 10:17 Dose: 40 mg Polyethylene Glycol (Miralax (For Daily Use) -) 17 gm PO BID [facility] Last Admin: 06/29/16 10:17 Dose: Not Given Potassium Phos/Sodium Phos (Phos-Nak Packet -) 1 packet PO TID [facility] Last Admin: 06/29/16 06:26 Dose: 1 packet - Objective Vital Signs: Vital Signs Temperature 97.8 F 06/29/16 09:00 Pulse Rate 73 06/29/16 09:00 Respiratory Rate 18 06/29/16 09:00 Blood Pressure 108/60 06/29/16 09:00 O2 Sat by Pulse Oximetry (%) 100 06/29/16 09:00 Constitutional: Yes: Calm, Mild Distress Cardiovascular: Yes: Regular Rate and Rhythm Respiratory: Yes: Regular, CTA Bilaterally Gastrointestinal: Yes: Normal Bowel Sounds, Soft Musculoskeletal: Yes: Other Extremities: Yes: Other (pain in the rt leg) Neurological: Yes: Alert, Oriented Psychiatric: Yes: Alert Labs: CBC, BMP 06/29/16 06:00 06/29/16 06:00 Assessment/Plan Problem List - Problems (1) UTI (urinary tract infection) Code(s): N39.0 - URINARY TRACT INFECTION, SITE NOT SPECIFIED (2) Heel ulceration Code(s): L97.409 - NON-PRS CHRONIC ULCER OF UNSP HEEL AND MIDFOOT W UNSP SEVERT (3) Atrial fibrillation Code(s): I48.91 - UNSPECIFIED ATRIAL FIBRILLATION Qualifiers: Atrial fibrillation type: paroxysmal Qualified Code(s): I48.0 - Paroxysmal atrial fibrillation (4) Hypercholesteremia Code(s): E78.0 - PURE HYPERCHOLESTEROLEMIA * DO NOT USE * (5) Hypertension Code(s): I10 - ESSENTIAL (PRIMARY) HYPERTENSION Qualifiers: Hypertension type: essential hypertension Qualified Code(s): I10 - Essential (primary) hypertension (6) Hypothyroid Code(s): E03.9 - HYPOTHYROIDISM, UNSPECIFIED Qualifiers: Hypothyroidism type: unspecified Qualified Code(s): E03.9 - Hypothyroidism, unspecified (7) Thrush, oral Code(s): B37.0 - CANDIDAL STOMATITIS Mri result noted no finding plan continue supportive care pain mgmt leg support rest a sper primary ortho on case
[2016-06-29 17:59] VITALS: BP 103/55; PULSE 86; TEMP 97.9
== END 2016-06-29 18:58 | DRG 593 ==
LOC: JER 20:08 → JERBED 23:24 → J7W 06-15 18:00
PROVIDERS: ADMIT Internal Medicine Geriatric Medicine; ATTEND Internal Medicine Geriatric Medicine
DX: L97.419 Non-pressure chronic ulcer of right heel and midfoot with unspecified severity (principal); N39.0 Urinary tract infection, site not specified; I25.110 Atherosclerotic heart disease of native coronary artery with unstable angina pectoris; B37.0 Candidal stomatitis; N10 Acute pyelonephritis; B96.29 Other Escherichia coli [E. coli] as the cause of diseases classified elsewhere; I34.1 Nonrheumatic mitral (valve) prolapse; E03.9 Hypothyroidism, unspecified; I10 Essential (primary) hypertension; E78.5 Hyperlipidemia, unspecified; K21.9 Gastro-esophageal reflux disease without esophagitis; E86.0 Dehydration; M21.371 Foot drop, right foot; M72.2 Plantar fascial fibromatosis
CPT/HCPCS: 36415; 71010-TC; 73610-TC-RT; 73630-TC-RT; 73700-TC-RT; 73718-TC; 80048; 80053; 81003; 81015; 83605; 83735; 83880; 84100; 84550; 85025; 85651; 86140; 87040; 87070; 87086; 87186; 87205; 93925-TC; 97116-GP; 97161-GP; 99284-25

== ENCOUNTER 2017-01-08 08:15 | Inpatient (IN) | payer BC, OTHER ==
--- NOTE | 2017-01-08 08:24 | PDOC ---
History of Present Illness - General Stated Complaint: FALL Time Seen by Provider: 01/08/17 08:15 History Source: Patient, EMS, Family Exam Limitations: No Limitations - History of Present Illness Initial Comments: This is an 89 yo female with h/o CVA and A-fib (on Eliquis), foot drop (uses walker at baseline), multiple falls, and osteoporosis who presents BIBA after a fall from bed at about 7 am. She notes having sat up on the side of the bed with her feet under her on the floor, and she fell to the floor onto the left wrist. She cannot recall exactly how or why she fell, but states that she did not lose consciousness. She has pain to the left wrist at 9/10 which worsens with movement or touching the area. She has taken no medications for the pain this morning. She additionally has an abrasion on the nose and a new blister underneath the left eyelid. She notes some chest discomfort currently, but denies any dizziness, headache, neck pain, numbness, tingling, or new weakness. Past History - Past Medical History Allergies/Adverse Reactions: Allergies Allergy/AdvReac Type Severity Reaction Status Date / Time ciprofloxacin [From Cipro] Allergy Verified 01/08/17 08:25 ciprofloxacin HCl Allergy Verified 01/08/17 08:25 [From Cipro] codeine Allergy Verified 01/08/17 08:25 Penicillins Allergy Verified 01/08/17 08:25 Home Medications: Ambulatory Orders Acetaminophen [Tylenol] 650 mg PO QID 06/14/16 Apixaban [Eliquis] 2.5 mg PO BID 06/14/16 Atorvastatin Ca [Lipitor] 20 mg PO HS 06/14/16 Levothyroxine [Synthroid -] 112 mcg PO DAILY 06/14/16 Nitroglycerin [Nitrostat] 0.4 mg SL DAILY 06/14/16 Pantoprazole Sodium [Protonix] 40 mg PO DAILY 06/14/16 Duloxetine HCl [Cymbalta -] 20 mg PO BID 01/08/17 Gabapentin [Neurontin -] 300 mg PO BID #60 cap 01/12/17 Lisinopril [Prinivil] 10 mg PO DAILY #30 tablet 01/12/17 Metoprolol Tartrate [Lopressor -] 25 mg PO BID #60 tablet 01/12/17 Oxycodone HCl [Roxicodone -] 5 mg PO Q4H PRN #30 tab MDD 20mg 01/12/17 Cardiac Disorders: Yes (CAD, ANGINA,MITRAL VALVE PROPLAPSE) CVA: Yes (2011) GI Disorders: Yes (REFLUX) HTN: Yes Hypercholesterolemia: Yes Suicide Attempt (Hx): No Thyroid Disease: Yes - Immunization History Immunization Up to Date: Yes - Psycho/Social/Smoking Cessation Hx Anxiety: No Suicidal Ideation: No Smoking Status: Yes Smoking History: Unknown if ever smoked Have you smoked in the past 12 months: No Number of Cigarettes Smoked Daily: 0 Hx Alcohol Use: No Drug/Substance Use Hx: No Substance Use Type: None Hx Substance Use Treatment: No Review of Systems - Review of Systems Able to Perform ROS?: Yes Constitutional: No: Chills, Fever, Unexplained wgt Loss HEENTM: No: Recent change in vision, Nose Congestion, Throat Pain Respiratory: No: Cough, Shortness of Breath Cardiac (ROS): No: Chest Pain, Palpitations ABD/GI: No: Constipated, Diarrhea, Nausea, Vomiting : No: Burning, Dysuria Musculoskeletal: Yes: Other (left wrist pain). No: Back Pain, Neck Pain Integumentary: Yes: Other (left lower eyelid blister). No: Rash Neurological: No: Headache, Numbness, Tingling, Weakness, Dizziness Endocrine: No: Unexplained Weight Gain, Unexplained Weight Loss *Physical Exam - Physical Exam General Appearance: Yes: Nourished, Appropriately Dressed, Mild Distress, Other (Well-appearing elderly female with left wrist with obvious deformity and bruising in sling and ice pack, conversing and answering questions appropriately , daughter at bedside) HEENT: positive: EOMI, ALLI, Normal Voice, Hearing Grossly Normal, Other (3 cm vertically oriented superficial abrasion to right side of nose, 1cm bulla just inferior to left inferior, no michel sign, no raccoon eyes, unable to visualize TMs 2/2 cerumen impaction bilaterally). negative: Scleral Icterus (R), Scleral Icterus (L), Nasal Congestion Neck: positive: Trachea midline, Supple. negative: Tender, Rigid Respiratory/Chest: positive: Lungs Clear, Normal Breath Sounds. negative: Chest Tender, Respiratory Distress, Crackles, Rhonchi, Stridor, Wheezing Cardiovascular: positive: Regular Rhythm, Regular Rate. negative: Murmur Gastrointestinal/Abdominal: positive: Normal Bowel Sounds, Soft. negative: Tender, Organomegaly, Pulsatile Mass, Guarding Musculoskeletal: negative: Decreased Range of Motion, Vertebral Tenderness Extremity: positive: Normal Capillary Refill, Tender (tenderness to left distal forearm hematoma and deformity), Swelling, Other (left distal forearm with obvious deformity and hematoma, radial pulse intact, no snuffbox tenderness). negative: Normal Inspection, Normal Range of Motion (unable to range left wrist 2/2 pain), Cyanosis Integumentary: positive: Normal Color, Dry, Warm. negative: Erythema, Rash, Bruising Neurologic: positive: hot repairman II-XII NML intact, Normal Mood/Affect, Normal Response , Motor Strength 5/5, Other (alert and oriented) Heart Score/ECG Review - History History: Moderately suspicious - Electrocardiogram EKG: Normal - Age Age: >/= 65 - Risk Factors Risk Factors Heart Score: Yes Hx Hypercholesterolemia, Yes Hx Hypertension Based on the list above the patient has:: 1-2 risk factors - Troponin Troponin: </= normal limit - Score Heart Score - Total: 4 #1 ECG reviewed & interpreted by me at: 09:00 Sinus rhythm, rate of 61, irregular with varied p-wave morphology, no ST-T changes, normal axis and intervals (CGm=509 noted) ED Treatment Course - LABORATORY CBC & Chemistry Diagram: 01/12/17 06:00 01/12/17 06:00 - RADIOLOGY Radiology Studies Ordered: Category Date Time Status FOREARM- LEFT [RAD] Stat Radiology 01/08/17 08:21 Ordered WRIST W/HAND-LEFT* [RAD] Stat Radiology 01/08/17 08:21 Ordered Radiograph Interpretation: EXAM#: TYPE/EXAM: RESULT: [id number] CT/HEAD CT WITHOUT CONTRAST Cranial CT without contrast Clinical information: status post fall, on anticoagulation No CT evidence of acute intracranial injury or calvarial fracture. There is no extra-axial fluid collection. A chronic right temporal/occipital cortical infarct is noted with associated mild ex vacuo dilatation of the adjacent segment of the right lateral ventricle. There is no obstructive hydrocephalus. No definite acute infarct is identified within the limitations of CT. There is no obvious mass lesion. Impression: There is no CT evidence of acute intracranial pathology. No definite interval change is noted in comparison to a prior CT study 2015. Chronic right temporal/occipital cortical infarct Reported By: Dewayne Lopez MD 01/08/17 0959 EXAM#: TYPE/EXAM: RESULT: CT/FACIAL BONES CT W/O CONTRAST Facial bone CT without contrast Clinical information status post fall Multiplanar imaging was performed. No acute fracture is seen. Bilateral nasal fractures are noted which are probably acute at the time of a previous CT study of 04/15/2016. Interval development of small bilateral maxillary sinus mucus retention cysts/ polyps is noted. impression: No acute fracture is identified. Reported By: Dewayne oLpez MD 01/08/17 1006 Medical Decision Making - Medical Decision Making 89 YOF with h/o CVA, A-fib, multiple falls, and osteoporosis p/w fall from bed WO good memory of the incident. P/W left wrist pain and deformity concerning for fracture. On Eliquis and does have e/o hitting face (nasal abrasion, blister just inferior to left eyelid). No clear recollection of events. DDX for cause of fall is infection, ACS, arrhythmia, TIA/CVA, orthostasis, electrolyte abnormality, mechanical. Ordered is EKG, cardiac profile, CBCD, CMP, UA with cx, CXR. Also ordered are head CT WO contrast, xrays left hand/wrist/FA. CBCD without abnormality, CMP with BUN 24 which is higher than her prior baseline in our EMR. Troponin is negative, EKG without ischemic changes. CT head and facial bones without acute abnormality. CXR shows nothing acute. Xrays show left distal FA radius and ulna fractures with displacement requiring reduction. 01/08/17 10:55 Spoke with Ortho NADEEM Kebede who graciously will come to the ED to reduce it. Sree Kebede comes to the ED, performs hematoma block, successfully reduces and casts the arm. UA notable for UTI. Pt is admitted with Ortho following. *DC/Admit/Observation/Transfer Diagnosis at time of Disposition: UTI (urinary tract infection) Qualifiers: Urinary tract infection type: acute cystitis Hematuria presence: without hematuria Qualified Code(s): N30.00 - Acute cystitis without hematuria Syncope Qualifiers: Syncope type: unspecified Qualified Code(s): R55 - Syncope and collapse Fall from bed Qualifiers: Encounter type: initial encounter Qualified Code(s): W06.XXXA - Fall from bed, initial encounter Forearm fractures, both bones, closed Qualifiers: Encounter type: initial encounter Laterality: left Qualified Code(s): S52.92XA - Unspecified fracture of left forearm, initial encounter for closed fracture - Discharge Dispostion Condition at time of disposition: Guarded Admit: Yes - Prescriptions
[2017-01-08 08:59] LABS: BASOPHIL 0.7 % (0-2.0); EOSINOPHIL 1.4 % (0-4.5); MCH 28.9 pg (25.7-33.7); MCHC 32.9 g/dl (32.0-36.0); MEAN CELL VOLUME 87.7 fl (80-96); MEAN PLT VOLUME 8.3 fl (7.5-11.1); NEUTROPHILS 75.9 % (42.8-82.8); PLATELET COUNT 198 K/MM3 (134-434); RDW 18.6 % (11.6-15.6); WHITE BLOOD COUNT 9.6 K/mm3 (4.0-10.0)
[2017-01-08] MEDS ORDERED: ONDANSETRON *ODT* 4 MG TABLET SL ONE (09:02)
[2017-01-08] MEDS ORDERED: ONDANSETRON *ODT* 4 MG TABLET ONE (09:06)
[2017-01-08 09:30] LABS: ALBUMIN 3.4 g/dl (3.4-5.0); ALK PHOS 76 U/L (45-117); ANION GAP 7 (8-16); BILIRUBIN,TOTAL 0.5 mg/dL (0.2-1.0); CALCIUM 8.8 mg/dL (8.5-10.1); CO2 31 mmol/L (21-32); CREATININE 0.8 mg/dL (0.55-1.02); GLUCOSE,RANDOM 106 mg/dL (74-106); SGOT/AST 17 U/L (15-37); SGPT/ALT 24 U/L (12-78); TOT PROT 6.6 g/dl (6.4-8.2)
[2017-01-08 09:32] LABS: CPK 66 IU/L (26-192); TROPONIN I < 0.02 ng/ml (0.00-0.05)
--- NOTE | 2017-01-08 09:38 | PDOC ---
Attending Attestation - Resident Resident Name: Maria Elena Vaughn - ED Attending Attestation I have performed the following: I have examined & evaluated the patient, The case was reviewed & discussed with the resident, I agree w/resident's findings & plan, Exceptions are as noted - Physicial Exam PE: GENERAL: Awake, alert, and fully oriented, in no acute distress HEAD: +Abrasion to the nasal bridge. EYES: PERRLA, EOMI, sclera anicteric, conjunctiva clear. ENT: Auricles normal inspection, hearing grossly normal, nares patent, oropharynx clear without exudates. Moist mucosa NECK: Normal ROM, supple, no lymphadenopathy, JVD, or masses LUNGS: Breath sounds equal, clear to auscultation bilaterally. No wheezes, and no crackles HEART: Regular rate and rhythm, normal S1 and S2, no murmurs, rubs or gallops ABDOMEN: Soft, nontender, normoactive bowel sounds. No guarding, no rebound. No masses EXTREMITIES: L forearm with deformity. Distal N/V intact. Remainder of extremities with normal range of motion, no edema. No clubbing or cyanosis. No cords, erythema, or tenderness NEUROLOGICAL: Cranial nerves II through XII grossly intact. Normal speech. Motor and sensation intact. SKIN: Warm, Dry, normal turgor, no rashes or lesions noted. - Medical Decision Making Pt presents s/p fall, stating she got up this morning, suddenly found herself on the floor. History of paroxysmal afib, on Eliquis. She now complains of mild cp. Will work up for syncope, as well as XR L wrist for fracture, CTH for head injury. <Poonam Thibodeaux - Last Filed: 01/08/17 09:38> - HPI HPI: 01/08/17 09:41 The patient is a 89 year old female presenting with her family, with a significant past medical history of CAD, Afib, (on Eliquis), Angina pectoris, mitral valve prolapse, hypothyroidism, HTN, acid reflux and HLD who presents to the emergency department s/p fall with left arm pain. Patient states that she was getting up from the bed and the next she remembers is being on the floor. She states she is unsure of how or why she fell. She now reports nose, chest and left arm pain after the fall. She states all she ate today was a cookie and coffee this morning. The patient denies dizziness or SOB. Allergies: codeine, ciprofloxacin, penicillins Past surgical history: None reported Social history: No alcohol, tobacco or drug use reported PMD - Dr. Alfredo Fan - Medical Decision Making 01/08/17 09:42 Documentation prepared by DONELL Garrett, acting as medical laboratory technical officer for Poonam Thibodeaux MD. 01/08/17 10:43 A call was placed to Dr. Claros. Awaiting call back from NADEEM Samson. <Latha Trinidad - Last Filed: 01/08/17 10:44>
[2017-01-08] MEDS ORDERED: morphine CARPU-JECT 2 MG/1 ML DISP.SYRIN IVPUSH ONE (10:39)
[2017-01-08] MEDS ORDERED: LIDOCAINE HCL 2% (50ML VIAL) INF ONE (10:57)
[2017-01-08 11:02] LABS: URINE APPEARANCE CLOUDY; URINE BILIRUBIN NEGATIVE (NEGATIVE); URINE BLOOD 2+ (NEGATIVE); URINE COLOR DKYELLOW; URINE GLUCOSE (UA) NEGATIVE (NEGATIVE); URINE KETONE NEGATIVE (NEGATIVE); URINE NITRITE NEGATIVE (NEGATIVE); URINE UROBILINOGEN NEGATIVE mg/dL (0.2-1.0)
[2017-01-08 11:05] LABS: URINE LEUK ESTERASE 3+ (NEGATIVE); URINE PROTEIN 1+ (NEGATIVE)
[2017-01-08 11:07] LABS: URINE BACTERIA RARE /hpf (NONE SEEN); URINE MUCUS RARE; URINE RBC 95 /hpf (0-3); URINE WBC 436 /hpf (3-5)
[2017-01-08] MEDS ORDERED: LIDOCAINE HCL 1%, 10 MG/ML (20ML VIAL) ONE (11:19)
[2017-01-08] MEDS ORDERED: morphine CARPU-JECT 4 MG/1 ML DISP.SYRIN ONE (11:20)
[2017-01-08] MEDS ORDERED: LIDOCAINE HCL 1%, 10 MG/ML (50 mL VIAL) INF ONE (11:33)
[2017-01-08] MEDS ORDERED: ERTAPENEM SODIUM 1 GM/50 ML PRE-DOCKED IVPB ONE (13:15)
--- NOTE | 2017-01-08 13:40 | CONSULT ---
Consult Consult Specialty:: orthopedics Reason for Consultation:: left wrist - History of Present Illness History of Present Illness: 89y/o female c/o left wrist pain s/p fall this morning getting out of bed. She came to the ER and had x-rays and was diagnosed with a distal radius and ulna fracture. Orthopedics was consulted. She states the pain is worse with use of the wrist and better with rest. She denies any numbness or tingling. There are no other associated, aggravating or relieving factors. - History Source Limitations to Obtaining History: No Limitations - Past Medical History SMOOTH PLATER: Yes: CVA Cardio/Vascular: Yes: HTN, Hyperlipdemia Gastrointestinal: Yes: GERD Renal/: Yes: UTI - Past Surgical History Past Surgical History: Yes: Hysterectomy, Joint Replacement - Alcohol/Substance Use Hx Alcohol Use: No History of Substance Use: reports: None - Smoking History Smoking history: Unknown if ever smoked Have you smoked in the past 12 months: No Aproximately how many cigarettes per day: 0 - Social History ADL: Independent History of Recent Travel: No Home Medications - Allergies Allergies/Adverse Reactions: Allergies Allergy/AdvReac Type Severity Reaction Status Date / Time ciprofloxacin [From Cipro] Allergy Verified 01/08/17 08:25 ciprofloxacin HCl Allergy Verified 01/08/17 08:25 [From Cipro] codeine Allergy Verified 01/08/17 08:25 Penicillins Allergy Verified 01/08/17 08:25 - Home Medications Home Medications: Ambulatory Orders Acetaminophen [Tylenol] 650 mg PO QID 06/14/16 Apixaban [Eliquis] 2.5 mg PO BID 06/14/16 Atorvastatin Ca [Lipitor] 20 mg PO HS 06/14/16 Levothyroxine [Synthroid -] 112 mcg PO DAILY 06/14/16 Nitroglycerin [Nitrostat] 0.4 mg SL DAILY 06/14/16 Pantoprazole Sodium [Protonix] 40 mg PO DAILY 06/14/16 Duloxetine HCl [Cymbalta -] 20 mg PO BID 01/08/17 Oxycodone HCl [Roxicodone -] 5 mg PO Q4H PRN MDD 20mg 01/08/17 Family Disease History - Family Disease History Family Disease History: Other: Father (Parkinsons), Mother (cirrhosis), Brother (bladder cancer) Review of Systems - Review of Systems Constitutional: reports: No Symptoms HENT: reports: No Symptoms Neck: reports: No Symptoms Cardiovascular: reports: No Symptoms Respiratory: reports: No Symptoms Gastrointestinal: reports: No Symptoms Genitourinary: reports: No Symptoms Breasts: reports: No Symptoms Reported Musculoskeletal: reports: Extremity Pain Integumentary: reports: No Symptoms Neurological: reports: No Symptoms Endocrine: reports: No Symptoms Hematology/Lymphatic: reports: No Symptoms Psychiatric: reports: No Symptoms Physical Exam Vital Signs: Vital Signs Temperature 98.7 F 01/08/17 08:25 Pulse Rate 60 01/08/17 08:25 Respiratory Rate 20 01/08/17 08:25 Blood Pressure 147/59 01/08/17 08:25 O2 Sat by Pulse Oximetry (%) 98 01/08/17 09:00 Constitutional: Yes: Well Nourished, No Distress, Calm Musculoskeletal: Yes: Other (left wrist: Dinner fork deformity. Diffuse ecchymosis of the wrist. No open wounds. No sign of infection. Tenderness over the distal radius and ulna. No other areas of tenderness. NVID. Full ROM of fingers.) Labs: CBC, BMP 01/08/17 08:44 01/08/17 08:50 Imaging - Results X-ray: Report Reviewed, Image Reviewed (Displaced Distal radius and ulna fractures) Assessment/Plan Left distal radius and ulna fractures -Discussed today's findings and treatment options with the patient and 2 daughters. discussed both surgical and non-surgical treatment options. Together decided to proceed with a closed reduction of left distal radius and ulna fractures Closed reduction, left distal radius and ulna fractures: Using sterile technique 12ccs of 1% lidocaine was injected into the fracture site of the radius and ulna completely anesthetized using a hematoma block. The wrist was then placed in traction for approximately 10 minutes. A manipulation of the wrist was performed and improved alignment was obtained. A short arm cast was placed. The patient tolerated the procedure well. NV exam intact post reduction. A 3 point mold was placed on the cast. The procedure was performed under the direct supervision of Dr. Stanislav Gonsalves. -Elevation and finger ROM discussed. -F/u in 1 week with X-ray as outpatient with Dr. Bell in [place] office -Activity restrictions discussed -Post reduction x-rays show much improved alignment
[2017-01-08] MEDS ORDERED: ACETAMINOPHEN 325 MG TABLET (FP) PO PRN (14:55)
--- NOTE | 2017-01-08 15:11 | HP ---
Admitting History and Physical - Admission Chief Complaint: s/p fall, possible syncope History of Present Illness: 89 yo female presents to hospital after falling getting out of bed this morning. She recalls moving her feet to the right side of the bed to get off, then next thing she knew she was on the floor with pain in her left hand. Does not recall feeling faint, does not recall hitting her head, but had abrasion on nose (new after the fall). No fevers recently, did have frequent urination priro to fall. 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 Cardiovascular: Yes: HTN, Hyperlipdemia Gastrointestinal: Yes: GERD Renal/: Yes: UTI - Past Surgical History Past Surgical History: Yes: Hysterectomy, Joint Replacement - Smoking History Smoking history: Unknown if ever smoked Have you smoked in the past 12 months: No Aproximately how many cigarettes per day: 0 - Alcohol/Substance Use Hx Alcohol Use: No History of Substance Use: reports: None - Social History ADL: Independent History of Recent Travel: No Home Medications - Allergies Allergies/Adverse Reactions: Allergies Allergy/AdvReac Type Severity Reaction Status Date / Time ciprofloxacin [From Cipro] Allergy Verified 01/08/17 08:25 ciprofloxacin HCl Allergy Verified 01/08/17 08:25 [From Cipro] codeine Allergy Verified 01/08/17 08:25 Penicillins Allergy Verified 01/08/17 08:25 - Home Medications Home Medications: Ambulatory Orders Acetaminophen [Tylenol] 650 mg PO QID 06/14/16 Apixaban [Eliquis] 2.5 mg PO BID 06/14/16 Atorvastatin Ca [Lipitor] 20 mg PO HS 06/14/16 Levothyroxine [Synthroid -] 112 mcg PO DAILY 06/14/16 Nitroglycerin [Nitrostat] 0.4 mg SL DAILY 06/14/16 Pantoprazole Sodium [Protonix] 40 mg PO DAILY 06/14/16 Duloxetine HCl [Cymbalta -] 20 mg PO BID 01/08/17 Oxycodone HCl [Roxicodone -] 5 mg PO Q4H PRN MDD 20mg 01/08/17 Family Disease History - Family Disease History Family Disease History: Other: Father (Parkinsons), Mother (cirrhosis), Brother (bladder cancer) Review of Systems - Review of Systems Constitutional: denies: Fever, Loss of Appetite, Malaise Eyes: reports: No Symptoms HENT: denies: Epistaxis, Throat Pain Neck: denies: Pain on Movement, Tenderness Cardiovascular: denies: Chest Pain, Palpitations Respiratory: denies: Cough, SOB Gastrointestinal: denies: Abdominal Pain, Diarrhea, Melena, Nausea, Vomiting Genitourinary: reports: Frequency. denies: Burning, Discharge, Dysuria Musculoskeletal: reports: Back Pain, Joint Pain (left leg) Physical Examination Vital Signs: Vital Signs Temperature 98.7 F 01/08/17 08:25 Pulse Rate 64 01/08/17 13:28 Respiratory Rate 17 01/08/17 13:28 Blood Pressure 116/76 01/08/17 13:28 O2 Sat by Pulse Oximetry (%) 96 01/08/17 13:28 Constitutional: Yes: No Distress, Calm Eyes: Yes: Conjunctiva Clear, EOM Intact, PERRL HENT: Yes: Other (abrasion on bridge of nose) Neck: Yes: Supple, Trachea Midline Cardiovascular: Yes: Pulse Irregular, S1, S2. No: Murmur Respiratory: Yes: Regular, CTA Bilaterally. No: Rales, Rhonchi, Wheezes Gastrointestinal: Yes: Normal Bowel Sounds, Soft. No: Distention, Tenderness Extremities: Yes: Other (cast on left wrist) Edema: No Neurological: Yes: Alert, Oriented Labs: Laboratory Tests 01/08/17 01/08/17 01/08/17 08:44 08:44 08:50 WBC 9.6 D RBC 4.57 D Hgb 13.2 D Hct 40.1 D MCV 87.7 MCH 28.9 MCHC 32.9 RDW 18.6 H Plt Count 198 MPV 8.3 Neutrophils % 75.9 D Lymphocytes % 15.1 D Monocytes % 6.9 Eosinophils % 1.4 Basophils % 0.7 Sodium 142 Potassium 4.1 Chloride 104 Carbon Dioxide 31 Anion Gap 7 L BUN 25 H D Creatinine 0.8 D Creat Clearance w eGFR > 60 Random Glucose 106 D Calcium 8.8 Total Bilirubin 0.5 D AST 17 D ALT 24 D Alkaline Phosphatase 76 D Creatine Kinase 66 Troponin I < 0.02 Total Protein 6.6 D Albumin 3.4 D Urine Color Dkyellow Urine Appearance Cloudy Urine pH 5.0 Urine Protein 1+ H Urine Glucose (UA) Negative Urine Ketones Negative Urine Blood 2+ H Urine Nitrite Negative Urine Bilirubin Negative Urine Urobilinogen Negative Ur Leukocyte Esterase 3+ H Urine RBC 95 Urine WBC 436 Ur Epithelial Cells Many Urine Bacteria Rare Urine Mucus Rare Imaging - Results Chest X-ray: Report Reviewed (no acute lung disease) X-ray: Report Reviewed (left distal ulna/radius fractures seen) Cat Scan: Report Reviewed (CT head with chronic temp/occip infarct on right, no acute changes or findings CT face without acute fractures (old nasal fracture seen)) Problem List - Problems (1) Syncope Assessment/Plan: -unclear if syncopised or blacked out after her fall -observe on tele, cardio / neuro evals Code(s): R55 - SYNCOPE AND COLLAPSE (2) Wrist fracture, left Assessment/Plan: -seen by ortho in ED and closed reduction of wrist done -will need ortho f/u in 1 week Code(s): S62.102A - FRACTURE OF UNSP CARPAL BONE, LEFT WRIST, INIT FOR CLOS FX (3) UTI (urinary tract infection) Assessment/Plan: -given Invanz in ED -will get ID consult for further abx (restricted to ID) as multiple abx allergies Code(s): N39.0 - URINARY TRACT INFECTION, SITE NOT SPECIFIED (4) Atrial fibrillation Assessment/Plan: -is on Eliquis with multiple falls in past, including falls which resulted in patella fracture and nasal fractures, but also at high risk of CVA, with previous stroke, so will continue for now. Code(s): I48.91 - UNSPECIFIED ATRIAL FIBRILLATION Qualifiers: Atrial fibrillation type: paroxysmal Qualified Code(s): I48.0 - Paroxysmal atrial fibrillation (5) History of stroke Assessment/Plan: -stable, no acute findings on head CT Code(s): Z86.73 - PRSNL HX OF TIA (TIA), AND CEREB INFRC W/O RESID DEFICITS (6) Hypercholesteremia Assessment/Plan: -cont statin Code(s): E78.0 - PURE HYPERCHOLESTEROLEMIA * DO NOT USE *
[2017-01-08 15:47] VITALS: BMI 23.2
--- NOTE | 2017-01-08 15:52 | CONSULT ---
Consult Consult Specialty:: infectious diseases Reason for Consultation:: uti - History of Present Illness Chief Complaint: weakness lehargy History of Present Illness: 89 yo female admitted to hospital after falling getting out of bed this morning. She recalls moving her feet to the right side of the bed to get off, then next thing she knew she was on the floor with pain in her left hand. Does not recall feeling faint, does not recall hitting her head, but had abrasion on nose . No fevers recently, did have frequent urination priro to fall. 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 Cardio/Vascular: Yes: HTN, Hyperlipdemia Gastrointestinal: Yes: GERD Renal/: Yes: UTI - Past Surgical History Past Surgical History: Yes: Hysterectomy, Joint Replacement - Alcohol/Substance Use Hx Alcohol Use: No History of Substance Use: reports: None - Smoking History Smoking history: Unknown if ever smoked Have you smoked in the past 12 months: No Aproximately how many cigarettes per day: 0 - Social History ADL: Independent History of Recent Travel: No Home Medications - Allergies Allergies/Adverse Reactions: Allergies Allergy/AdvReac Type Severity Reaction Status Date / Time ciprofloxacin [From Cipro] Allergy Verified 01/08/17 08:25 ciprofloxacin HCl Allergy Verified 01/08/17 08:25 [From Cipro] codeine Allergy Verified 01/08/17 08:25 Penicillins Allergy Verified 01/08/17 08:25 - Home Medications Home Medications: Ambulatory Orders Acetaminophen [Tylenol] 650 mg PO QID 06/14/16 Apixaban [Eliquis] 2.5 mg PO BID 06/14/16 Atorvastatin Ca [Lipitor] 20 mg PO HS 06/14/16 Levothyroxine [Synthroid -] 112 mcg PO DAILY 06/14/16 Nitroglycerin [Nitrostat] 0.4 mg SL DAILY 06/14/16 Pantoprazole Sodium [Protonix] 40 mg PO DAILY 06/14/16 Duloxetine HCl [Cymbalta -] 20 mg PO BID 01/08/17 Oxycodone HCl [Roxicodone -] 5 mg PO Q4H PRN MDD 20mg 01/08/17 Family Disease History - Family Disease History Family Disease History: Other: Father (Parkinsons), Mother (cirrhosis), Brother (bladder cancer) Review of Systems - Review of Systems Constitutional: reports: No Symptoms Eyes: reports: No Symptoms HENT: reports: No Symptoms Neck: reports: No Symptoms Cardiovascular: reports: No Symptoms Respiratory: reports: No Symptoms Gastrointestinal: reports: No Symptoms Genitourinary: reports: Dysuria, Urgency. denies: Flank Pain Musculoskeletal: reports: Muscle Weakness Integumentary: reports: No Symptoms Neurological: reports: Change in LOC Endocrine: reports: No Symptoms Psychiatric: reports: No Symptoms Physical Exam Vital Signs: Vital Signs Temperature 98.7 F 01/08/17 08:25 Pulse Rate 71 01/08/17 14:45 Respiratory Rate 18 01/08/17 14:45 Blood Pressure 130/73 01/08/17 14:45 O2 Sat by Pulse Oximetry (%) 96 01/08/17 14:45 Constitutional: Yes: Well Nourished, No Distress, Calm HENT: Yes: Atraumatic Neck: Yes: Supple, Trachea Midline Cardiovascular: Yes: Regular Rate and Rhythm Respiratory: Yes: Regular, CTA Bilaterally Gastrointestinal: Yes: Normal Bowel Sounds, Soft Renal/: Yes: Other (suprapubic tenderness) Musculoskeletal: Yes: WNL Extremities: Yes: WNL Neurological: Yes: Alert, Oriented Psychiatric: Yes: Alert, Oriented Imaging - Results Chest X-ray: Report Reviewed, Image Reviewed X-ray: Report Reviewed, Image Reviewed Cat Scan: Report Reviewed, Image Reviewed Assessment/Plan Problem List - Problems (1) Wrist fracture, left Code(s): S62.102A - FRACTURE OF UNSP CARPAL BONE, LEFT WRIST, INIT FOR CLOS FX Qualifiers: Encounter type: initial encounter Fracture type: closed Qualified Code(s): S62.102A - Fracture of unspecified carpal bone, left wrist, initial encounter for closed fracture (2) Atrial fibrillation Code(s): I48.91 - UNSPECIFIED ATRIAL FIBRILLATION Qualifiers: Atrial fibrillation type: paroxysmal Qualified Code(s): I48.0 - Paroxysmal atrial fibrillation (3) Diastolic CHF, acute on chronic Code(s): I50.33 - ACUTE ON CHRONIC DIASTOLIC (CONGESTIVE) HEART FAILURE (4) GERD (gastroesophageal reflux disease) Code(s): K21.9 - GASTRO-ESOPHAGEAL REFLUX DISEASE WITHOUT ESOPHAGITIS Qualifiers: Esophagitis presence: without esophagitis Qualified Code(s): K21.9 - Gastro-esophageal reflux disease without esophagitis (5) History of stroke Code(s): Z86.73 - PRSNL HX OF TIA (TIA), AND CEREB INFRC W/O RESID DEFICITS (6) Hypercholesteremia Code(s): E78.0 - PURE HYPERCHOLESTEROLEMIA * DO NOT USE * (7) Hypertension Code(s): I10 - ESSENTIAL (PRIMARY) HYPERTENSION Qualifiers: Hypertension type: essential hypertension Qualified Code(s): I10 - Essential (primary) hypertension (8) Hypothyroid Code(s): E03.9 - HYPOTHYROIDISM, UNSPECIFIED Qualifiers: Hypothyroidism type: unspecified Qualified Code(s): E03.9 - Hypothyroidism, unspecified (9) Pain of right knee after injury Code(s): M25.561 - PAIN IN RIGHT KNEE (10) Right patella fracture Code(s): S82.001A - UNSP FRACTURE OF RIGHT PATELLA, INIT FOR CLOS FX Qualifiers: Encounter type: initial encounter Fracture type: closed Fracture morphology: unspecified fracture morphology Fracture alignment: displaced Qualified Code(s): S82.001A - Unspecified fracture of right patella, initial encounter for closed fracture (11) UTI (urinary tract infection) Code(s): N39.0 - URINARY TRACT INFECTION, SITE NOT SPECIFIED Qualifiers: Urinary tract infection type: site unspecified Hematuria presence: without hematuria Qualified Code(s): N39.0 - Urinary tract infection, site not specified patient has a history of esbl uti and i think her symptoms at least partially could be contributed by her uti plan await for cx report will start patient on abx cardio and neuro seeing the patient hydration discussed with the daughter
[2017-01-08] MEDS: morphine CARPU-JECT 2 MG/1 ML DISP.SYRIN IVPUSH PRN ×2 (16:21→20:14)
[2017-01-08] MEDS ORDERED: PT OWN MED DRAWER 7, Y5N ONE ×2 (18:03→18:11)
[2017-01-08] MEDS: APIXABAN 2.5 MG TABLET PO SCH (21:17)
[2017-01-08] MEDS: ATORVASTATIN CA 20 MG TABLET (FP) PO SCH (21:17)
[2017-01-08] MEDS: DULoxetine HCL 20 MG CAPSULE.DR (FP) PO SCH (21:17)
[2017-01-08] MEDS ORDERED: ENOXAPARIN NA (PORCINE) 60 MG/0.6 ML DISP.SYRIN SQ SCH (22:00)
--- NOTE | 2017-01-08 22:06 | EKG ---
Test Reason : Blood Pressure : / mmHG Vent. Rate : 061 BPM Atrial Rate : 061 BPM P-R Int : 160 ms QRS Dur : 070 ms QT Int : 462 ms P-R-T Axes : 044 -03 001 degrees QTc Int : 465 ms SINUS RHYTHM WITH MARKED SINUS ARRHYTHMIA NONSPECIFIC ST AND T WAVE ABNORMALITY ABNORMAL ECG WHEN COMPARED WITH ECG OF 03-MAY-2016 10:11, VENT. RATE HAS DECREASED Confirmed by MIRIAM AMARO MD ([id number]) on 01/08/2017 10:05:34 PM Referred By: Confirmed By:MIRIAM AMARO MD
[2017-01-08] MEDS: oxyCODONE HCL 5 MG TABLET PO PRN (23:05)
[2017-01-09] MEDS: LEVOTHYROXINE NA 112 MCG TABLET (FP) PO SCH (06:12)
[2017-01-09] MEDS: morphine CARPU-JECT 2 MG/1 ML DISP.SYRIN IVPUSH PRN (07:14)
[2017-01-09 08:03] LABS: EOSINOPHIL 1.6 % (0-4.5); MCHC 33.2 g/dl (32.0-36.0); MEAN CELL VOLUME 87.4 fl (80-96); NEUTROPHILS 64.8 % (42.8-82.8); PLATELET COUNT 184 K/MM3 (134-434); RDW 18.8 % (11.6-15.6); WHITE BLOOD COUNT 8.7 K/mm3 (4.0-10.0)
[2017-01-09 08:54] LABS: ALK PHOS 69 U/L (45-117); ANION GAP 9 (8-16); BILIRUBIN,TOTAL 0.7 mg/dL (0.2-1.0); CALCIUM 8.5 mg/dL (8.5-10.1); CO2 27 mmol/L (21-32); CPK 160 IU/L (26-192); CREATININE 0.6 mg/dL (0.55-1.02); GLUCOSE,RANDOM 102 mg/dL (74-106); SGOT/AST 15 U/L (15-37); SGPT/ALT 21 U/L (12-78); TOT PROT 6.1 g/dl (6.4-8.2); TROPONIN I < 0.02 ng/ml (0.00-0.05)
--- NOTE | 2017-01-09 09:18 | CON.CARD ---
Consult Consult Specialty:: Cardiology Referred by:: Dr. Martinez Reason for Consultation:: Cardiac evaluation - History of Present Illness Chief Complaint: Mechancial fall resulting in left radial and ulnar fracture History of Present Illness: Patient is an 89 year old female well known to our service with underlying history of hypertension/hypertensive cardiovascular disease, hypercholesterolemia, paroxysmal atrial fibrillation on NOAC, hypothyroidism, mitral valve prolapse, right posterior cerebral artery stroke (2012), GERD/ esophageal spasm, spional stenosis with sciatica and mechanical fall resulting in nasal bone fracture and right patella fracture in 2015. She was in [place] until yesterday when she fell again at her house and appears to be a mechanical fall (does not appear to be syncope) resulting in left radial and ulnar fracture. She denies chest pain, shortness of breath or palpitations. She denies paroxysmal nocturnal dyspnea or orthopnea. She denies fever or chills. Denies headache or lightheadedness. She did not hit her head during the fall. She apparently also has UTI for which she was started on antibiotics. Cardiology consultation was called for further evaluation. She had seen Dr. Chester Landon in the past, but states that she wants to follow up with [facility]. She was seen by me in the recent past. - History Source History Provided By: Patient, Medical Record Limitations to Obtaining History: No Limitations - Past Medical History [employer]OR[employer] MEDIA: Yes: CVA Cardio/Vascular: Yes: HTN, Hyperlipdemia Gastrointestinal: Yes: GERD Renal/: Yes: UTI - Past Surgical History Past Surgical History: Yes: Hysterectomy, Joint Replacement - Alcohol/Substance Use Hx Alcohol Use: No History of Substance Use: reports: None - Smoking History Smoking history: Unknown if ever smoked Have you smoked in the past 12 months: No Aproximately how many cigarettes per day: 0 - Social History ADL: Independent History of Recent Travel: No Home Medications - Allergies Allergies/Adverse Reactions: Allergies Allergy/AdvReac Type Severity Reaction Status Date / Time ciprofloxacin [From Cipro] Allergy Verified 01/08/17 08:25 ciprofloxacin HCl Allergy Verified 01/08/17 08:25 [From Cipro] codeine Allergy Verified 01/08/17 08:25 Penicillins Allergy Verified 01/08/17 08:25 - Home Medications Home Medications: Ambulatory Orders Acetaminophen [Tylenol] 650 mg PO QID 06/14/16 Apixaban [Eliquis] 2.5 mg PO BID 06/14/16 Atorvastatin Ca [Lipitor] 20 mg PO HS 06/14/16 Levothyroxine [Synthroid -] 112 mcg PO DAILY 06/14/16 Nitroglycerin [Nitrostat] 0.4 mg SL DAILY 06/14/16 Pantoprazole Sodium [Protonix] 40 mg PO DAILY 06/14/16 Duloxetine HCl [Cymbalta -] 20 mg PO BID 01/08/17 Oxycodone HCl [Roxicodone -] 5 mg PO Q4H PRN MDD 20mg 01/08/17 Family Disease History - Family Disease History Family Disease History: Other: Father (Parkinsons), Mother (cirrhosis), Brother (bladder cancer) Review of Systems - Review of Systems Constitutional: denies: Chills, Fever Cardiovascular: denies: Chest Pain, Palpitations, Shortness of Breath Respiratory: denies: Cough, Hemoptysis, Orthopnea, PND, SOB, SOB on Exertion Gastrointestinal: denies: Abdominal Pain, Constipation, Diarrhea, Melena, Nausea , Rectal Bleeding, Vomiting Genitourinary: reports: Frequency Musculoskeletal: reports: Joint Pain Neurological: denies: Change in Speech, Confusion, Dizziness, Headache, Numbness , Seizure, Syncope, Weakness Vital Signs: Vital Signs Temperature 98.4 F 01/09/17 07:14 Pulse Rate 64 01/09/17 07:14 Respiratory Rate 20 01/09/17 07:14 Blood Pressure 170/79 01/09/17 07:14 O2 Sat by Pulse Oximetry (%) 96 01/08/17 14:45 Neck: Yes: Supple Respiratory: Yes: CTA Bilaterally Gastrointestinal: Yes: Normal Bowel Sounds, Soft. No: Tenderness Cardiovascular: Yes: Regular Rate and Rhythm JVD: No Carotid Bruit: No PMI: Non-Displaced Heart Sounds: Yes: S1, S2 Extremities: Yes: Other (Cast applied to left forearm) Edema: No - Other Data Labs, Other Data: CBC, BMP 01/09/17 06:00 01/09/17 06:00 Troponin, BNP 01/09/17 06:00 Troponin I < 0.02 Laboratory Results - last 24 hr 01/08/17 01/08/17 01/09/17 08:44 08:50 06:00 WBC 8.7 RBC 4.17 Hgb 12.1 Hct 36.4 MCV 87.4 MCH 29.0 MCHC 33.2 RDW 18.8 H Plt Count 184 MPV 9.0 Neutrophils % 64.8 Lymphocytes % 21.6 D Monocytes % 11.0 H Eosinophils % 1.6 Basophils % 1.0 Sodium 142 Potassium 4.1 Chloride 104 Carbon Dioxide 31 Anion Gap 7 L BUN 25 H D Creatinine 0.8 D Creat Clearance w eGFR > 60 Random Glucose 106 D Calcium 8.8 Total Bilirubin 0.5 D AST 17 D ALT 24 D Alkaline Phosphatase 76 D Creatine Kinase 66 Creatine Kinase Index CK-MB (CK-2) Troponin I < 0.02 Total Protein 6.6 D Albumin 3.4 D Urine Color Dkyellow Urine Appearance Cloudy Urine pH 5.0 Ur Specific [place] 1.025 Urine Protein 1+ H Urine Glucose (UA) Negative Urine Ketones Negative Urine Blood 2+ H Urine Nitrite Negative Urine Bilirubin Negative Urine Urobilinogen Negative Ur Leukocyte Esterase 3+ H Urine RBC 95 Urine WBC 436 Ur Epithelial Cells Many Urine Bacteria Rare Urine Mucus Rare 01/09/17 06:00 WBC RBC Hgb Hct MCV MCH MCHC RDW Plt Count MPV Neutrophils % Lymphocytes % Monocytes % Eosinophils % Basophils % Sodium 140 Potassium 4.2 Chloride 104 Carbon Dioxide 27 Anion Gap 9 BUN 18 D Creatinine 0.6 D Creat Clearance w eGFR > 60 Random Glucose 102 Calcium 8.5 Total Bilirubin 0.7 D AST 15 ALT 21 Alkaline Phosphatase 69 Creatine Kinase 160 Creatine Kinase Index 1.1 CK-MB (CK-2) 1.871 Troponin I < 0.02 Total Protein 6.1 L Albumin 3.0 L Urine Color Urine Appearance Urine pH Ur Specific [place] Urine Protein Urine Glucose (UA) Urine Ketones Urine Blood Urine Nitrite Urine Bilirubin Urine Urobilinogen Ur Leukocyte Esterase Urine RBC Urine WBC Ur Epithelial Cells Urine Bacteria Urine Mucus Sinus rhythm with sinus arrhythmia, nonspecific ST-T abnormality Imaging - Results Chest X-ray: Report Reviewed (Unremarkable) X-ray: Report Reviewed (Left forearm with radial and ulnar fracture) Cat Scan: Report Reviewed (Head CT unremarkable) EKG: Report Reviewed Problem List - Problems (1) Wrist fracture, left Code(s): S62.102A - FRACTURE OF UNSP CARPAL BONE, LEFT WRIST, INIT FOR CLOS FX Qualifiers: Encounter type: initial encounter Fracture type: closed Qualified Code(s): S62.102A - Fracture of unspecified carpal bone, left wrist, initial encounter for closed fracture (2) Atrial fibrillation Code(s): I48.91 - UNSPECIFIED ATRIAL FIBRILLATION Qualifiers: Atrial fibrillation type: paroxysmal Qualified Code(s): I48.0 - Paroxysmal atrial fibrillation (3) Diastolic CHF, acute on chronic Code(s): I50.33 - ACUTE ON CHRONIC DIASTOLIC (CONGESTIVE) HEART FAILURE (4) GERD (gastroesophageal reflux disease) Code(s): K21.9 - GASTRO-ESOPHAGEAL REFLUX DISEASE WITHOUT ESOPHAGITIS Qualifiers: Esophagitis presence: without esophagitis Qualified Code(s): K21.9 - Gastro-esophageal reflux disease without esophagitis (5) History of stroke Code(s): Z86.73 - PRSNL HX OF TIA (TIA), AND CEREB INFRC W/O RESID DEFICITS (6) Hypercholesteremia Code(s): E78.0 - PURE HYPERCHOLESTEROLEMIA * DO NOT USE * (7) Hypertension Code(s): I10 - ESSENTIAL (PRIMARY) HYPERTENSION Qualifiers: Hypertension type: essential hypertension Qualified Code(s): I10 - Essential (primary) hypertension (8) Hypothyroid Code(s): E03.9 - HYPOTHYROIDISM, UNSPECIFIED Qualifiers: Hypothyroidism type: unspecified Qualified Code(s): E03.9 - Hypothyroidism, unspecified (9) Pain of right knee after injury Code(s): M25.561 - PAIN IN RIGHT KNEE (10) Right patella fracture Code(s): S82.001A - UNSP FRACTURE OF RIGHT PATELLA, INIT FOR CLOS FX Qualifiers: Encounter type: initial encounter Fracture type: closed Fracture morphology: unspecified fracture morphology Fracture alignment: displaced Qualified Code(s): S82.001A - Unspecified fracture of right patella, initial encounter for closed fracture (11) UTI (urinary tract infection) Code(s): N39.0 - URINARY TRACT INFECTION, SITE NOT SPECIFIED Qualifiers: Urinary tract infection type: site unspecified Hematuria presence: without hematuria Qualified Code(s): N39.0 - Urinary tract infection, site not specified Assessment/Plan 1. Mechanical fall resulting in left radial and ulnar fracture, no LOC 2. Hypertension/hypertensive cardiovascular disease - labile blood pressure 3. Hypercholesterolemia 4. Mitral valve disease - MVP 5. Paroxysmal atrial fibrillation on NOAC 6. 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 GERD/esophageal spasm 8. Spinal stenosis with sciatica 9. Musculoskeletal pain post previous fall resulting in patella fracture 10. Hypothyroidism 11. UTI PLAN: 1. Orthopedic follow up and management 2. Doubt she had a syncopal episode. 3. Consider Metoprolol and Lisinopril as BP is elevated this am. Titrate accordingly 4. Continue Eliquis as tolerated 5. Continue Atorvastatin 6. Continue thyroid replacement therapy 7. Analgesics as needed 8. Antibiotic coverage Further plans are to follow Shakir Cheney MD
--- NOTE | 2017-01-09 10:09 | PN ---
Progress Note (short form) - Note Progress Note: Neurology 89 yo female presents to hospital after falling when getting out of bed on morning of admission. She recalls moving her feet to the right side of the bed to get off, then next thing she knew she was on the floor with pain in her left hand. Does not recall feeling faint, does not recall hitting her head, but had abrasion on nose (new after the fall). Ct head compelted and reviewed and showed no acute changes, chronic R temp/occip infarct noted. CT face reviewed without acute fractures. Mental status at baseline and she was able to tell me name, location ([facility]), month and year. Does have Atrial Fibrillation and on AC therefore fall is a significant concern with her. - Past Medical History [employer]: Yes: CVA Cardiovascular: Yes: HTN, Hyperlipdemia Gastrointestinal: Yes: GERD Renal/: Yes: UTI - Past Surgical History Past Surgical History: Yes: Hysterectomy, Joint Replacement - Smoking History Smoking history: Unknown if ever smoked Have you smoked in the past 12 months: No Aproximately how many cigarettes per day: 0 - Alcohol/Substance Use Hx Alcohol Use: No History of Substance Use: reports: None - Social History ADL: Independent History of Recent Travel: No Home Medications - Allergies Allergies/Adverse Reactions: Allergies Allergy/AdvReac Type Severity Reaction Status Date / Time ciprofloxacin [From Cipro] Allergy Verified 01/08/17 08:25 ciprofloxacin HCl Allergy Verified 01/08/17 08:25 [From Cipro] codeine Allergy Verified 01/08/17 08:25 Penicillins Allergy Verified 01/08/17 08:25 - Home Medications Home Medications: Ambulatory Orders Acetaminophen [Tylenol] 650 mg PO QID 06/14/16 Apixaban [Eliquis] 2.5 mg PO BID 06/14/16 Atorvastatin Ca [Lipitor] 20 mg PO HS 06/14/16 Levothyroxine [Synthroid -] 112 mcg PO DAILY 06/14/16 Nitroglycerin [Nitrostat] 0.4 mg SL DAILY 06/14/16 Pantoprazole Sodium [Protonix] 40 mg PO DAILY 06/14/16 Duloxetine HCl [Cymbalta -] 20 mg PO BID 01/08/17 Oxycodone HCl [Roxicodone -] 5 mg PO Q4H PRN MDD 20mg 01/08/17 Family Disease History - Family Disease History Family Disease History: Other: Father (Parkinsons), Mother (cirrhosis), Brother (bladder cancer) Review of Systems - Review of Systems Constitutional: denies: Fever, Loss of Appetite, Malaise Eyes: reports: No Symptoms HENT: denies: Epistaxis, Throat Pain Neck: denies: Pain on Movement, Tenderness Cardiovascular: denies: Chest Pain, Palpitations Respiratory: denies: Cough, SOB Gastrointestinal: denies: Abdominal Pain, Diarrhea, Melena, Nausea, Vomiting Genitourinary: reports: Frequency. denies: Burning, Discharge, Dysuria Musculoskeletal: reports: Back Pain, Joint Pain (left leg) Physical Examination Vital Signs Temperature 98.4 F 01/09/17 07:14 Pulse Rate 64 01/09/17 07:14 Respiratory Rate 20 01/09/17 07:14 Blood Pressure 170/79 01/09/17 07:14 O2 Sat by Pulse Oximetry (%) 96 01/08/17 14:45 Constitutional: Yes: No Distress, Calm Eyes: Yes: Conjunctiva Clear, EOM Intact, PERRL HENT: Yes: Other (abrasion on bridge of nose) Neck: Yes: Supple, Trachea Midline Cardiovascular: Yes: Pulse Irregular, S1, S2. No: Murmur Respiratory: Yes: Regular, CTA Bilaterally. No: Rales, Rhonchi, Wheezes Gastrointestinal: Yes: Normal Bowel Sounds, Soft. No: Distention, Tenderness Extremities: Yes: Other (cast on left wrist) Edema: No Neurological: Yes: Alert, Oriented Labs: Laboratory Tests 01/08/17 01/08/17 01/08/17 08:44 08:44 08:50 WBC 9.6 D RBC 4.57 D Hgb 13.2 D Hct 40.1 D MCV 87.7 MCH 28.9 MCHC 32.9 RDW 18.6 H Plt Count 198 MPV 8.3 Neutrophils % 75.9 D Lymphocytes % 15.1 D Monocytes % 6.9 Eosinophils % 1.4 Basophils % 0.7 Sodium 142 Potassium 4.1 Chloride 104 Carbon Dioxide 31 Anion Gap 7 L BUN 25 H D Creatinine 0.8 D Creat Clearance w eGFR > 60 Random Glucose 106 D Calcium 8.8 Total Bilirubin 0.5 D AST 17 D ALT 24 D Alkaline Phosphatase 76 D Creatine Kinase 66 Troponin I < 0.02 Total Protein 6.6 D Albumin 3.4 D Urine Color Dkyellow Urine Appearance Cloudy Urine pH 5.0 Urine Protein 1+ H Urine Glucose (UA) Negative Urine Ketones Negative Urine Blood 2+ H Urine Nitrite Negative Urine Bilirubin Negative Urine Urobilinogen Negative Ur Leukocyte Esterase 3+ H Urine RBC 95 Urine WBC 436 Ur Epithelial Cells Many Urine Bacteria Rare Urine Mucus Rare Imaging - Results Chest X-ray: Report Reviewed (no acute lung disease) X-ray: Report Reviewed (left distal ulna/radius fractures seen) Cat Scan: Report Reviewed (CT head with chronic temp/occip infarct on right, no acute changes or findings CT face without acute fractures (old nasal fracture seen)) Plan 89 yo female presents to hospital after falling when getting out of bed on morning of admission. She recalls moving her feet to the right side of the bed to get off, then next thing she knew she was on the floor with pain in her left hand. Does not recall feeling faint, does not recall hitting her head, but had abrasion on nose (new after the fall). Ct head compelted and reviewed and showed no acute changes, chronic R temp/occip infarct noted. CT face reviewed without acute fractures. Mental status at baseline and she was able to tell me name, location ([facility]), month and year. Does have Atrial Fibrillation and on AC therefore fall is a significant concern with her. Continue treatment for UTI , ID consult. Is on Eliquis with multiple falls and need to reduce her fall risk. Physical therapy recommended. Does have high risk for CVA and cannot rule out TIA as this episode, though more likely syncopal. Continue cardiology evaluation. Fall precautions. Assistive device.
[2017-01-09] MEDS: METOPROLOL TARTRATE 25 MG TABLET (FP) PO SCH ×2 (11:35→21:05)
[2017-01-09] MEDS: ERTAPENEM SODIUM 1 GM in SODIUM CHLORIDE 50 ML IVPB SCH (11:36)
[2017-01-09] MEDS: PANTOPRAZOLE 40 MG TABLET (FP) PO SCH (11:36)
[2017-01-09] MEDS: LISINOPRIL 10 MG TABLET (FP) PO SCH (11:36)
[2017-01-09] MEDS: oxyCODONE HCL 5 MG TABLET PO PRN ×2 (11:59→22:21)
--- NOTE | 2017-01-09 12:24 | PN ---
Progress Note, Physician Chief Complaint: Ms Mei complains of L wrist pain. no cp, sob, n/v. - Current Medication List Current Medications: Active Medications Acetaminophen (Tylenol -) 650 mg PO Q4H PRN PRN Reason: FEVER OR PAIN Apixaban (Eliquis -) 2.5 mg PO BID [facility] Last Admin: 01/08/17 21:17 Dose: 2.5 mg Atorvastatin Calcium (Lipitor -) 20 mg PO HS [facility] Last Admin: 01/08/17 21:17 Dose: 20 mg Duloxetine HCl (Cymbalta -) 20 mg PO BID [facility] Last Admin: 01/08/17 21:17 Dose: 20 mg Ertapenem 1 gm/ Sodium (Chloride) 50 mls @ 50 mls/hr IVPB DAILY [facility] PRN Reason: Protocol Last Admin: 01/09/17 11:36 Dose: 50 mls/hr Levothyroxine Sodium (Synthroid -) 112 mcg PO DAILY@0700 [facility] Last Admin: 01/09/17 06:12 Dose: 112 mcg Lisinopril (Prinivil) 10 mg PO DAILY [facility] Last Admin: 01/09/17 11:36 Dose: 10 mg Metoprolol Tartrate (Lopressor -) 25 mg PO BID [facility] Last Admin: 01/09/17 11:35 Dose: 25 mg Morphine Sulfate (Morphine Injection -) 2 mg IVPUSH Q4H PRN PRN Reason: PAIN LEVEL 6-10 Last Admin: 01/09/17 07:14 Dose: 2 mg Oxycodone HCl (Roxicodone -) 5 mg PO Q4H PRN PRN Reason: PAIN Last Admin: 01/09/17 11:59 Dose: 5 mg Pantoprazole Sodium (Protonix -) 40 mg PO DAILY [facility] Last Admin: 01/09/17 11:36 Dose: 40 mg - Objective Vital Signs: Vital Signs Temperature 36.9 C 01/09/17 07:14 Pulse Rate 64 01/09/17 07:14 Respiratory Rate 20 01/09/17 07:14 Blood Pressure 170/79 01/09/17 07:14 O2 Sat by Pulse Oximetry (%) 96 01/08/17 14:45 Constitutional: Yes: Well Nourished, No Distress, Calm Cardiovascular: Yes: Regular Rate and Rhythm. No: Gallop, Murmur, Rub Respiratory: Yes: Regular, CTA Bilaterally. No: Rales, Rhonchi, Wheezes Gastrointestinal: Yes: Normal Bowel Sounds, Soft. No: Distention (L wrist wrapped, bruised), Tenderness Edema: No Labs: CBC, BMP 01/09/17 06:00 01/09/17 06:00 Problem List - Problems (1) UTI (urinary tract infection) Assessment/Plan: -urinalysis positive for UTI -ordered blood and urine cultures -continue ertapenem per ID secondary to history of ESBL Code(s): N39.0 - URINARY TRACT INFECTION, SITE NOT SPECIFIED Qualifiers: Urinary tract infection type: acute cystitis Hematuria presence: without hematuria Qualified Code(s): N30.00 - Acute cystitis without hematuria (2) Syncope Assessment/Plan: -appreciate neurology and cardiology assistance, notes reviewed -PT consulted -fall risk precautions Code(s): R55 - SYNCOPE AND COLLAPSE (3) Wrist fracture, left Assessment/Plan: -reduction done in ED -follow up with ortho in one week Code(s): S62.102A - FRACTURE OF UNSP CARPAL BONE, LEFT WRIST, INIT FOR CLOS FX Qualifiers: Encounter type: initial encounter Fracture type: closed Qualified Code(s): S62.102A - Fracture of unspecified carpal bone, left wrist, initial encounter for closed fracture (4) Atrial fibrillation Assessment/Plan: -continue eliquis and metoprolol -high risk for CVA so eliquis continued Code(s): I48.91 - UNSPECIFIED ATRIAL FIBRILLATION Qualifiers: Atrial fibrillation type: paroxysmal Qualified Code(s): I48.0 - Paroxysmal atrial fibrillation (5) GERD (gastroesophageal reflux disease) Assessment/Plan: -continue protonix Code(s): K21.9 - GASTRO-ESOPHAGEAL REFLUX DISEASE WITHOUT ESOPHAGITIS Qualifiers: Esophagitis presence: without esophagitis Qualified Code(s): K21.9 - Gastro-esophageal reflux disease without esophagitis (6) Hypercholesteremia Assessment/Plan: -continue statin Code(s): E78.0 - PURE HYPERCHOLESTEROLEMIA * DO NOT USE * (7) Hypertension Assessment/Plan: -elevated this am -on lisinopril and metoprolol -follow up blood pressure after receiving medications -increase as needed Code(s): I10 - ESSENTIAL (PRIMARY) HYPERTENSION Qualifiers: Hypertension type: essential hypertension Qualified Code(s): I10 - Essential (primary) hypertension (8) Hypothyroid Assessment/Plan: -continue synthroid Code(s): E03.9 - HYPOTHYROIDISM, UNSPECIFIED Qualifiers: Hypothyroidism type: unspecified Qualified Code(s): E03.9 - Hypothyroidism, unspecified
[2017-01-09] MEDS: DULoxetine HCL 20 MG CAPSULE.DR (FP) PO SCH ×2 (12:26→21:05)
[2017-01-09] MEDS: APIXABAN 2.5 MG TABLET PO SCH ×2 (12:26→21:05)
--- NOTE | 2017-01-09 13:33 | PN ---
Progress Note, Physician History of Present Illness: patient stable no new issues says she feels better - Current Medication List Current Medications: Active Medications Acetaminophen (Tylenol -) 650 mg PO Q4H PRN PRN Reason: FEVER OR PAIN Apixaban (Eliquis -) 2.5 mg PO BID [facility] Last Admin: 01/09/17 12:26 Dose: 2.5 mg Atorvastatin Calcium (Lipitor -) 20 mg PO HS [facility] Last Admin: 01/08/17 21:17 Dose: 20 mg Duloxetine HCl (Cymbalta -) 20 mg PO BID [facility] Last Admin: 01/09/17 12:26 Dose: 20 mg Ertapenem 1 gm/ Sodium (Chloride) 50 mls @ 50 mls/hr IVPB DAILY [facility] PRN Reason: Protocol Last Admin: 01/09/17 11:36 Dose: 50 mls/hr Levothyroxine Sodium (Synthroid -) 112 mcg PO DAILY@0700 [facility] Last Admin: 01/09/17 06:12 Dose: 112 mcg Lisinopril (Prinivil) 10 mg PO DAILY [facility] Last Admin: 01/09/17 11:36 Dose: 10 mg Metoprolol Tartrate (Lopressor -) 25 mg PO BID [facility] Last Admin: 01/09/17 11:35 Dose: 25 mg Morphine Sulfate (Morphine Injection -) 2 mg IVPUSH Q4H PRN PRN Reason: PAIN LEVEL 6-10 Last Admin: 01/09/17 07:14 Dose: 2 mg Oxycodone HCl (Roxicodone -) 5 mg PO Q4H PRN PRN Reason: PAIN Last Admin: 01/09/17 11:59 Dose: 5 mg Pantoprazole Sodium (Protonix -) 40 mg PO DAILY [facility] Last Admin: 01/09/17 11:36 Dose: 40 mg - Objective Vital Signs: Vital Signs Temperature 98.4 F 01/09/17 07:14 Pulse Rate 64 01/09/17 07:14 Respiratory Rate 20 01/09/17 07:14 Blood Pressure 170/79 01/09/17 07:14 O2 Sat by Pulse Oximetry (%) 96 01/08/17 14:45 Constitutional: Yes: No Distress, Calm Cardiovascular: Yes: Regular Rate and Rhythm Respiratory: Yes: Regular, CTA Bilaterally Gastrointestinal: Yes: Normal Bowel Sounds, Soft Musculoskeletal: Yes: WNL Extremities: Yes: WNL Labs: CBC, BMP 01/09/17 06:00 01/09/17 06:00 Assessment/Plan Problem List - Problems (1) Wrist fracture, left Code(s): S62.102A - FRACTURE OF UNSP CARPAL BONE, LEFT WRIST, INIT FOR CLOS FX Qualifiers: Encounter type: initial encounter Fracture type: closed Qualified Code(s): S62.102A - Fracture of unspecified carpal bone, left wrist, initial encounter for closed fracture (2) Atrial fibrillation Code(s): I48.91 - UNSPECIFIED ATRIAL FIBRILLATION Qualifiers: Atrial fibrillation type: paroxysmal Qualified Code(s): I48.0 - Paroxysmal atrial fibrillation (3) Diastolic CHF, acute on chronic Code(s): I50.33 - ACUTE ON CHRONIC DIASTOLIC (CONGESTIVE) HEART FAILURE (4) GERD (gastroesophageal reflux disease) Code(s): K21.9 - GASTRO-ESOPHAGEAL REFLUX DISEASE WITHOUT ESOPHAGITIS Qualifiers: Esophagitis presence: without esophagitis Qualified Code(s): K21.9 - Gastro-esophageal reflux disease without esophagitis (5) History of stroke Code(s): Z86.73 - PRSNL HX OF TIA (TIA), AND CEREB INFRC W/O RESID DEFICITS (6) Hypercholesteremia Code(s): E78.0 - PURE HYPERCHOLESTEROLEMIA * DO NOT USE * (7) Hypertension Code(s): I10 - ESSENTIAL (PRIMARY) HYPERTENSION Qualifiers: Hypertension type: essential hypertension Qualified Code(s): I10 - Essential (primary) hypertension (8) Hypothyroid Code(s): E03.9 - HYPOTHYROIDISM, UNSPECIFIED Qualifiers: Hypothyroidism type: unspecified Qualified Code(s): E03.9 - Hypothyroidism, unspecified (9) Pain of right knee after injury Code(s): M25.561 - PAIN IN RIGHT KNEE (10) Right patella fracture Code(s): S82.001A - UNSP FRACTURE OF RIGHT PATELLA, INIT FOR CLOS FX Qualifiers: Encounter type: initial encounter Fracture type: closed Fracture morphology: unspecified fracture morphology Fracture alignment: displaced Qualified Code(s): S82.001A - Unspecified fracture of right patella, initial encounter for closed fracture (11) UTI (urinary tract infection) Code(s): N39.0 - URINARY TRACT INFECTION, SITE NOT SPECIFIED Qualifiers: Urinary tract infection type: site unspecified Hematuria presence: without hematuria Qualified Code(s): N39.0 - Urinary tract infection, site not specified plan continue abx await for cx report rest as per primary team and neuro
[2017-01-09] MEDS ORDERED: PT OWN MED DRAWER 7, Y5N ONE (20:44)
[2017-01-09] MEDS: GABAPENTIN 300 MG CAPSULE (FP) PO SCH (21:05)
[2017-01-09] MEDS: ATORVASTATIN CA 20 MG TABLET (FP) PO SCH (21:05)
[2017-01-10] MEDS: LEVOTHYROXINE NA 112 MCG TABLET (FP) PO SCH (06:26)
[2017-01-10 08:46] LABS: BASOPHIL 0.6 % (0-2.0); EOSINOPHIL 1.4 % (0-4.5); MCH 29.1 pg (25.7-33.7); MEAN CELL VOLUME 87.9 fl (80-96); MEAN PLT VOLUME 9.3 fl (7.5-11.1); NEUTROPHILS 66.6 % (42.8-82.8); PLATELET COUNT 192 K/MM3 (134-434); RDW 18.7 % (11.6-15.6); WHITE BLOOD COUNT 9.5 K/mm3 (4.0-10.0)
[2017-01-10] MEDS ORDERED: PT OWN MED DRAWER 7, Y5N ONE ×2 (09:55→21:37)
[2017-01-10] MEDS: PANTOPRAZOLE 40 MG TABLET (FP) PO SCH (09:59)
[2017-01-10] MEDS: oxyCODONE HCL 5 MG TABLET PO PRN ×3 (09:59→21:41)
[2017-01-10] MEDS: GABAPENTIN 300 MG CAPSULE (FP) PO SCH ×2 (09:59→21:41)
[2017-01-10] MEDS: ERTAPENEM SODIUM 1 GM in SODIUM CHLORIDE 50 ML IVPB SCH (09:59)
[2017-01-10] MEDS: LISINOPRIL 10 MG TABLET (FP) PO SCH (09:59)
[2017-01-10] MEDS: DULoxetine HCL 20 MG CAPSULE.DR (FP) PO SCH ×2 (10:00→21:42)
[2017-01-10] MEDS: METOPROLOL TARTRATE 25 MG TABLET (FP) PO SCH ×2 (10:00→21:41)
[2017-01-10] MEDS: APIXABAN 2.5 MG TABLET PO SCH ×2 (10:00→21:41)
--- NOTE | 2017-01-10 10:17 | PN ---
Progress Note (short form) - Note Progress Note: Neurology 89 yo female presents to hospital after falling when getting out of bed on morning of admission. She recalls moving her feet to the right side of the bed to get off, then next thing she knew she was on the floor with pain in her left hand. Does not recall feeling faint, does not recall hitting her head, but had abrasion on nose (new after the fall). Ct head compelted and reviewed and showed no acute changes, chronic R temp/occip infarct noted. CT face reviewed without acute fractures. Mental status at baseline and she was able to tell me name, location ([facility]), month and year. Does have Atrial Fibrillation and on AC therefore fall is a significant concern with her. No acute events overnight, still fatigued appearing but stable. Active Medications Acetaminophen (Tylenol -) 650 mg PO Q4H PRN PRN Reason: FEVER OR PAIN Apixaban (Eliquis -) 2.5 mg PO BID [facility] BEDS [facility] Last Admin: 01/10/17 10:00 Dose: 2.5 mg Atorvastatin Calcium (Lipitor -) 20 mg PO HS [facility] 234 BEDS AT [facility] Last Admin: 01/09/17 21:05 Dose: 20 mg Duloxetine HCl (Cymbalta -) 20 mg PO BID [facility] 234 BEDS AT [facility] Last Admin: 01/10/17 10:00 Dose: 20 mg Gabapentin (Neurontin -) 300 mg PO BID [facility] 234 BEDS AT [facility] Last Admin: 01/10/17 09:59 Dose: 300 mg Ertapenem 1 gm/ Sodium (Chloride) 50 mls @ 50 mls/hr IVPB DAILY [facility] 234 B[facility]S AT [facility] PRN Reason: Protocol Last Admin: 01/10/17 09:59 Dose: 50 mls/hr Levothyroxine Sodium (Synthroid -) 112 mcg PO DAILY@0700 [facility] 234 BEDS AT [facility] Last Admin: 01/10/17 06:26 Dose: 112 mcg Lisinopril (Prinivil) 10 mg PO DAILY [facility] 234 BEDS AT [facility] Last Admin: 01/10/17 09:59 Dose: 10 mg Metoprolol Tartrate (Lopressor -) 25 mg PO BID [facility] 234 BEDS AT [facility] Last Admin: 01/10/17 10:00 Dose: 25 mg Morphine Sulfate (Morphine Injection -) 2 mg IVPUSH Q4H PRN PRN Reason: PAIN LEVEL 6-10 Last Admin: 01/09/17 07:14 Dose: 2 mg Oxycodone HCl (Roxicodone -) 5 mg PO Q4H PRN PRN Reason: PAIN Last Admin: 01/10/17 09:59 Dose: 5 mg Pantoprazole Sodium (Protonix -) 40 mg PO DAILY [facility] Last Admin: 01/10/17 09:59 Dose: 40 mg Physical Examination Vital Signs Temperature 98.5 F 01/10/17 06:32 Pulse Rate 73 01/10/17 06:32 Respiratory Rate 18 01/10/17 06:32 Blood Pressure 145/63 01/10/17 06:32 O2 Sat by Pulse Oximetry (%) 98 01/09/17 21:00 Constitutional: Yes: No Distress, Calm Eyes: Yes: Conjunctiva Clear, EOM Intact, PERRL HENT: Yes: Other (abrasion on bridge of nose) Neck: Yes: Supple, Trachea Midline Cardiovascular: Yes: Pulse Irregular, S1, S2. No: Murmur Respiratory: Yes: Regular, CTA Bilaterally. No: Rales, Rhonchi, Wheezes Gastrointestinal: Yes: Normal Bowel Sounds, Soft. No: Distention, Tenderness Extremities: Yes: Other (cast on left wrist) Edema: No Neurological: Yes: Alert, Oriented Labs: CBCD WBC 9.5 K/mm3 (4.0-10.0) 01/10/17 06:30 RBC 4.19 M/mm3 (3.60-5.2) 01/10/17 06:30 Hgb 12.2 GM/dL (10.7-15.3) 01/10/17 06:30 Hct 36.9 % (32.4-45.2) 01/10/17 06:30 MCV 87.9 fl (80-96) 01/10/17 06:30 MCHC 33.0 g/dl (32.0-36.0) 01/10/17 06:30 RDW 18.7 % (11.6-15.6) H 01/10/17 06:30 Plt Count 192 K/MM3 (134-434) 01/10/17 06:30 MPV 9.3 fl (7.5-11.1) 01/10/17 06:30 CMP Sodium 140 mmol/L (136-145) 01/09/17 06:00 Potassium 4.2 mmol/L (3.5-5.1) 01/09/17 06:00 Chloride 104 mmol/L (98-107) 01/09/17 06:00 Carbon Dioxide 27 mmol/L (21-32) 01/09/17 06:00 Anion Gap 9 (8-16) 01/09/17 06:00 BUN 18 mg/dL (7-18) D 01/09/17 06:00 Creatinine 0.6 mg/dL (0.55-1.02) D 01/09/17 06:00 Creat Clearance w eGFR > 60 (>60) 01/09/17 06:00 Calcium 8.5 mg/dL (8.5-10.1) 01/09/17 06:00 Total Bilirubin 0.7 mg/dL (0.2-1.0) D 01/09/17 06:00 AST 15 U/L (15-37) 01/09/17 06:00 ALT 21 U/L (12-78) 01/09/17 06:00 Alkaline Phosphatase 69 U/L (45-117) 01/09/17 06:00 Total Protein 6.1 g/dl (6.4-8.2) L 01/09/17 06:00 Albumin 3.0 g/dl (3.4-5.0) L 01/09/17 06:00 Imaging - Results Chest X-ray: Report Reviewed (no acute lung disease) X-ray: Report Reviewed (left distal ulna/radius fractures seen) Cat Scan: Report Reviewed (CT head with chronic temp/occip infarct on right, no acute changes or findings CT face without acute fractures (old nasal fracture seen)) Plan 89 yo female presents to hospital after falling when getting out of bed on morning of admission. She recalls moving her feet to the right side of the bed to get off, then next thing she knew she was on the floor with pain in her left hand. Does not recall feeling faint, does not recall hitting her head, but had abrasion on nose (new after the fall). Ct head compelted and reviewed and showed no acute changes, chronic R temp/occip infarct noted. CT face reviewed without acute fractures. Mental status at baseline and she was able to tell me name, location ([facility]), month and year. Does have Atrial Fibrillation and on AC therefore fall is a significant concern with her. Continue treatment for UTI , ID consult. Is on Eliquis with multiple falls and need to reduce her fall risk. Physical therapy recommended. Does have high risk for CVA and cannot rule out TIA as this episode, though more likely syncopal. Continue cardiology evaluation. Fall precautions. Assistive device as needed.
--- NOTE | 2017-01-10 10:24 | PN ---
Progress Note, Physician Chief Complaint: Not in distress History of Present Illness: Patient was seen and examined. Awake and alert. Chart was reviewed Denies chest pain, SOB or palpitations - Current Medication List Current Medications: Active Medications Acetaminophen (Tylenol -) 650 mg PO Q4H PRN PRN Reason: FEVER OR PAIN Apixaban (Eliquis -) 2.5 mg PO BID [facility] Last Admin: 01/10/17 10:00 Dose: 2.5 mg Atorvastatin Calcium (Lipitor -) 20 mg PO HS [facility] Last Admin: 01/09/17 21:05 Dose: 20 mg Duloxetine HCl (Cymbalta -) 20 mg PO BID [facility] Last Admin: 01/10/17 10:00 Dose: 20 mg Gabapentin (Neurontin -) 300 mg PO BID [facility] Last Admin: 01/10/17 09:59 Dose: 300 mg Ertapenem 1 gm/ Sodium (Chloride) 50 mls @ 50 mls/hr IVPB DAILY [facility] PRN Reason: Protocol Last Admin: 01/10/17 09:59 Dose: 50 mls/hr Levothyroxine Sodium (Synthroid -) 112 mcg PO DAILY@0700 [facility] Last Admin: 01/10/17 06:26 Dose: 112 mcg Lisinopril (Prinivil) 10 mg PO DAILY [facility] Last Admin: 01/10/17 09:59 Dose: 10 mg Metoprolol Tartrate (Lopressor -) 25 mg PO BID [facility] Last Admin: 01/10/17 10:00 Dose: 25 mg Morphine Sulfate (Morphine Injection -) 2 mg IVPUSH Q4H PRN PRN Reason: PAIN LEVEL 6-10 Last Admin: 01/09/17 07:14 Dose: 2 mg Oxycodone HCl (Roxicodone -) 5 mg PO Q4H PRN PRN Reason: PAIN Last Admin: 01/10/17 09:59 Dose: 5 mg Pantoprazole Sodium (Protonix -) 40 mg PO DAILY [facility] Last Admin: 01/10/17 09:59 Dose: 40 mg - Objective Vital Signs: Vital Signs Temperature 98.5 F 01/10/17 06:32 Pulse Rate 73 01/10/17 06:32 Respiratory Rate 18 01/10/17 06:32 Blood Pressure 145/63 01/10/17 06:32 O2 Sat by Pulse Oximetry (%) 98 01/09/17 21:00 Neck: Yes: Supple Cardiovascular: Yes: Regular Rate and Rhythm, S1, S2 Respiratory: Yes: Diminished Gastrointestinal: Yes: Normal Bowel Sounds, Soft. No: Tenderness Edema: No Additional Findings/Remarks: - Review of Systems Constitutional: denies: Chills, Fever Cardiovascular: denies: Chest Pain, Palpitations, Shortness of Breath Respiratory: denies: Cough, Hemoptysis, Orthopnea, PND, SOB, SOB on Exertion Gastrointestinal: denies: Abdominal Pain, Constipation, Diarrhea, Melena, Nausea , Rectal Bleeding, Vomiting Genitourinary: reports: Frequency Musculoskeletal: reports: Joint Pain Neurological: denies: Change in Speech, Confusion, Dizziness, Headache, Numbness , Seizure, Syncope, Weakness Labs: CBC, BMP 01/10/17 06:30 Problem List - Problems (1) Wrist fracture, left Code(s): S62.102A - FRACTURE OF UNSP CARPAL BONE, LEFT WRIST, INIT FOR CLOS FX Qualifiers: Encounter type: initial encounter Fracture type: closed Qualified Code(s): S62.102A - Fracture of unspecified carpal bone, left wrist, initial encounter for closed fracture (2) Atrial fibrillation Code(s): I48.91 - UNSPECIFIED ATRIAL FIBRILLATION Qualifiers: Atrial fibrillation type: paroxysmal Qualified Code(s): I48.0 - Paroxysmal atrial fibrillation (3) Diastolic CHF, acute on chronic Code(s): I50.33 - ACUTE ON CHRONIC DIASTOLIC (CONGESTIVE) HEART FAILURE (4) GERD (gastroesophageal reflux disease) Code(s): K21.9 - GASTRO-ESOPHAGEAL REFLUX DISEASE WITHOUT ESOPHAGITIS Qualifiers: Esophagitis presence: without esophagitis Qualified Code(s): K21.9 - Gastro-esophageal reflux disease without esophagitis (5) History of stroke Code(s): Z86.73 - PRSNL HX OF TIA (TIA), AND CEREB INFRC W/O RESID DEFICITS (6) Hypercholesteremia Code(s): E78.0 - PURE HYPERCHOLESTEROLEMIA * DO NOT USE * (7) Hypertension Code(s): I10 - ESSENTIAL (PRIMARY) HYPERTENSION Qualifiers: Hypertension type: essential hypertension Qualified Code(s): I10 - Essential (primary) hypertension (8) Hypothyroid Code(s): E03.9 - HYPOTHYROIDISM, UNSPECIFIED Qualifiers: Hypothyroidism type: unspecified Qualified Code(s): E03.9 - Hypothyroidism, unspecified (9) Pain of right knee after injury Code(s): M25.561 - PAIN IN RIGHT KNEE (10) Right patella fracture Code(s): S82.001A - UNSP FRACTURE OF RIGHT PATELLA, INIT FOR CLOS FX Qualifiers: Encounter type: initial encounter Fracture type: closed Fracture morphology: unspecified fracture morphology Fracture alignment: displaced Qualified Code(s): S82.001A - Unspecified fracture of right patella, initial encounter for closed fracture (11) UTI (urinary tract infection) Code(s): N39.0 - URINARY TRACT INFECTION, SITE NOT SPECIFIED Qualifiers: Urinary tract infection type: acute cystitis Hematuria presence: without hematuria Qualified Code(s): N30.00 - Acute cystitis without hematuria Assessment/Plan 1. Mechanical fall resulting in left radial and ulnar fracture, no LOC 2. Hypertension/hypertensive cardiovascular disease - labile blood pressure 3. Hypercholesterolemia 4. Mitral valve disease - MVP 5. Paroxysmal atrial fibrillation on NOAC 6. 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 GERD/esophageal spasm 8. Spinal stenosis with sciatica 9. Musculoskeletal pain post previous fall resulting in patella fracture 10. Hypothyroidism 11. UTI PLAN: 1. Orthopedic follow up and management 2. Continue Metoprolol and Lisinopril as tolerated and titrate accordingly 3. Continue Eliquis as tolerated 4. Continue Atorvastatin 5. Continue thyroid replacement therapy 6. Analgesics as needed 7. Antibiotic coverage as per ID Further plans are to follow Shakir Cheney MD
[2017-01-10 10:27] LABS: ANION GAP 11 (8-16); CALCIUM 8.6 mg/dL (8.5-10.1); CO2 26 mmol/L (21-32); CREATININE 0.5 mg/dL (0.55-1.02); GLUCOSE,RANDOM 99 mg/dL (74-106); MAGNESIUM 2.3 mg/dL (1.8-2.4); PHOSPHOROUS 3.2 mg/dL (2.5-4.9)
--- NOTE | 2017-01-10 13:02 | PN ---
Progress Note, Physician History of Present Illness: patient stable no new issues - Current Medication List Current Medications: Active Medications Acetaminophen (Tylenol -) 650 mg PO Q4H PRN PRN Reason: FEVER OR PAIN Apixaban (Eliquis -) 2.5 mg PO BID [facility] Last Admin: 01/10/17 10:00 Dose: 2.5 mg Atorvastatin Calcium (Lipitor -) 20 mg PO HS [facility] Last Admin: 01/09/17 21:05 Dose: 20 mg Duloxetine HCl (Cymbalta -) 20 mg PO BID [facility] Last Admin: 01/10/17 10:00 Dose: 20 mg Gabapentin (Neurontin -) 300 mg PO BID [facility] Last Admin: 01/10/17 09:59 Dose: 300 mg Ertapenem 1 gm/ Sodium (Chloride) 50 mls @ 50 mls/hr IVPB DAILY [facility] PRN Reason: Protocol Last Admin: 01/10/17 09:59 Dose: 50 mls/hr Levothyroxine Sodium (Synthroid -) 112 mcg PO DAILY@0700 [facility] Last Admin: 01/10/17 06:26 Dose: 112 mcg Lisinopril (Prinivil) 10 mg PO DAILY [facility] Last Admin: 01/10/17 09:59 Dose: 10 mg Metoprolol Tartrate (Lopressor -) 25 mg PO BID [facility] Last Admin: 01/10/17 10:00 Dose: 25 mg Morphine Sulfate (Morphine Injection -) 2 mg IVPUSH Q4H PRN PRN Reason: PAIN LEVEL 6-10 Last Admin: 01/09/17 07:14 Dose: 2 mg Oxycodone HCl (Roxicodone -) 5 mg PO Q4H PRN PRN Reason: PAIN Last Admin: 01/10/17 09:59 Dose: 5 mg Pantoprazole Sodium (Protonix -) 40 mg PO DAILY [facility] Last Admin: 01/10/17 09:59 Dose: 40 mg - Objective Vital Signs: Vital Signs Temperature 98.5 F 01/10/17 06:32 Pulse Rate 73 01/10/17 06:32 Respiratory Rate 18 01/10/17 06:32 Blood Pressure 145/63 01/10/17 06:32 O2 Sat by Pulse Oximetry (%) 97 01/10/17 09:00 Constitutional: Yes: No Distress, Calm Cardiovascular: Yes: Regular Rate and Rhythm Respiratory: Yes: Regular, CTA Bilaterally Gastrointestinal: Yes: Normal Bowel Sounds, Soft Musculoskeletal: Yes: WNL Extremities: Yes: WNL Neurological: Yes: Alert, Oriented Psychiatric: Yes: Alert Labs: CBC, BMP 01/10/17 06:30 01/10/17 06:00 Assessment/Plan Problem List - Problems (1) Wrist fracture, left Code(s): S62.102A - FRACTURE OF UNSP CARPAL BONE, LEFT WRIST, INIT FOR CLOS FX Qualifiers: Encounter type: initial encounter Fracture type: closed Qualified Code(s): S62.102A - Fracture of unspecified carpal bone, left wrist, initial encounter for closed fracture (2) Atrial fibrillation Code(s): I48.91 - UNSPECIFIED ATRIAL FIBRILLATION Qualifiers: Atrial fibrillation type: paroxysmal Qualified Code(s): I48.0 - Paroxysmal atrial fibrillation (3) Diastolic CHF, acute on chronic Code(s): I50.33 - ACUTE ON CHRONIC DIASTOLIC (CONGESTIVE) HEART FAILURE (4) GERD (gastroesophageal reflux disease) Code(s): K21.9 - GASTRO-ESOPHAGEAL REFLUX DISEASE WITHOUT ESOPHAGITIS Qualifiers: Esophagitis presence: without esophagitis Qualified Code(s): K21.9 - Gastro-esophageal reflux disease without esophagitis (5) History of stroke Code(s): Z86.73 - PRSNL HX OF TIA (TIA), AND CEREB INFRC W/O RESID DEFICITS (6) Hypercholesteremia Code(s): E78.0 - PURE HYPERCHOLESTEROLEMIA * DO NOT USE * (7) Hypertension Code(s): I10 - ESSENTIAL (PRIMARY) HYPERTENSION Qualifiers: Hypertension type: essential hypertension Qualified Code(s): I10 - Essential (primary) hypertension (8) Hypothyroid Code(s): E03.9 - HYPOTHYROIDISM, UNSPECIFIED Qualifiers: Hypothyroidism type: unspecified Qualified Code(s): E03.9 - Hypothyroidism, unspecified (9) Pain of right knee after injury Code(s): M25.561 - PAIN IN RIGHT KNEE (10) Right patella fracture Code(s): S82.001A - UNSP FRACTURE OF RIGHT PATELLA, INIT FOR CLOS FX Qualifiers: Encounter type: initial encounter Fracture type: closed Fracture morphology: unspecified fracture morphology Fracture alignment: displaced Qualified Code(s): S82.001A - Unspecified fracture of right patella, initial encounter for closed fracture (11) UTI (urinary tract infection) Code(s): N39.0 - URINARY TRACT INFECTION, SITE NOT SPECIFIED Qualifiers: Urinary tract infection type: site unspecified Hematuria presence: without hematuria Qualified Code(s): N39.0 - Urinary tract infection, site not specified plan continue abx await for cx report rest as per primary team and neuro
--- NOTE | 2017-01-10 15:13 | PN ---
Progress Note, Physician Chief Complaint: Ms Mei complains of L wrist pain. no cp, sob, n/v. - Current Medication List Current Medications: Active Medications Acetaminophen (Tylenol -) 650 mg PO Q4H PRN PRN Reason: FEVER OR PAIN Apixaban (Eliquis -) 2.5 mg PO BID [facility] Last Admin: 01/10/17 10:00 Dose: 2.5 mg Atorvastatin Calcium (Lipitor -) 20 mg PO HS [facility] Last Admin: 01/09/17 21:05 Dose: 20 mg Duloxetine HCl (Cymbalta -) 20 mg PO BID [facility] Last Admin: 01/10/17 10:00 Dose: 20 mg Gabapentin (Neurontin -) 300 mg PO BID [facility] Last Admin: 01/10/17 09:59 Dose: 300 mg Ertapenem 1 gm/ Sodium (Chloride) 50 mls @ 50 mls/hr IVPB DAILY [facility] PRN Reason: Protocol Last Admin: 01/10/17 09:59 Dose: 50 mls/hr Levothyroxine Sodium (Synthroid -) 112 mcg PO DAILY@0700 [facility] Last Admin: 01/10/17 06:26 Dose: 112 mcg Lisinopril (Prinivil) 10 mg PO DAILY [facility] Last Admin: 01/10/17 09:59 Dose: 10 mg Metoprolol Tartrate (Lopressor -) 25 mg PO BID [facility] Last Admin: 01/10/17 10:00 Dose: 25 mg Morphine Sulfate (Morphine Injection -) 2 mg IVPUSH Q4H PRN PRN Reason: PAIN LEVEL 6-10 Last Admin: 01/09/17 07:14 Dose: 2 mg Oxycodone HCl (Roxicodone -) 5 mg PO Q4H PRN PRN Reason: PAIN Last Admin: 01/10/17 09:59 Dose: 5 mg Pantoprazole Sodium (Protonix -) 40 mg PO DAILY [facility] Last Admin: 01/10/17 09:59 Dose: 40 mg - Objective Vital Signs: Vital Signs Temperature 36.9 C 01/10/17 06:32 Pulse Rate 73 01/10/17 06:32 Respiratory Rate 18 01/10/17 06:32 Blood Pressure 145/63 01/10/17 06:32 O2 Sat by Pulse Oximetry (%) 97 01/10/17 09:00 Constitutional: Yes: Well Nourished, No Distress, Calm Cardiovascular: Yes: Regular Rate and Rhythm. No: Gallop, Murmur, Rub Respiratory: Yes: Regular, CTA Bilaterally. No: Rales, Rhonchi, Wheezes Gastrointestinal: Yes: Normal Bowel Sounds, Soft. No: Distention, Tenderness Extremities: Yes: Other (L hand bruising) Edema: No Labs: CBC, BMP 01/10/17 06:30 01/10/17 06:00 Problem List - Problems (1) UTI (urinary tract infection) Code(s): N39.0 - URINARY TRACT INFECTION, SITE NOT SPECIFIED Qualifiers: Urinary tract infection type: acute cystitis Hematuria presence: without hematuria Qualified Code(s): N30.00 - Acute cystitis without hematuria (2) Syncope Code(s): R55 - SYNCOPE AND COLLAPSE (3) Wrist fracture, left Code(s): S62.102A - FRACTURE OF UNSP CARPAL BONE, LEFT WRIST, INIT FOR CLOS FX Qualifiers: Encounter type: initial encounter Fracture type: closed Qualified Code(s): S62.102A - Fracture of unspecified carpal bone, left wrist, initial encounter for closed fracture (4) Atrial fibrillation Code(s): I48.91 - UNSPECIFIED ATRIAL FIBRILLATION Qualifiers: Atrial fibrillation type: paroxysmal Qualified Code(s): I48.0 - Paroxysmal atrial fibrillation (5) GERD (gastroesophageal reflux disease) Code(s): K21.9 - GASTRO-ESOPHAGEAL REFLUX DISEASE WITHOUT ESOPHAGITIS Qualifiers: Esophagitis presence: without esophagitis Qualified Code(s): K21.9 - Gastro-esophageal reflux disease without esophagitis (6) Hypercholesteremia Code(s): E78.0 - PURE HYPERCHOLESTEROLEMIA * DO NOT USE * (7) Hypertension Code(s): I10 - ESSENTIAL (PRIMARY) HYPERTENSION Qualifiers: Hypertension type: essential hypertension Qualified Code(s): I10 - Essential (primary) hypertension (8) Hypothyroid Code(s): E03.9 - HYPOTHYROIDISM, UNSPECIFIED Qualifiers: Hypothyroidism type: unspecified Qualified Code(s): E03.9 - Hypothyroidism, unspecified Assessment/Plan (1) UTI (urinary tract infection) Assessment/Plan: -urinalysis positive for UTI -ordered blood and urine cultures, results pending -continue ertapenem per ID secondary to history of ESBL Code(s): N39.0 - URINARY TRACT INFECTION, SITE NOT SPECIFIED Qualifiers: Urinary tract infection type: acute cystitis Hematuria presence: without hematuria Qualified Code(s): N30.00 - Acute cystitis without hematuria (2) Syncope Assessment/Plan: -appreciate neurology and cardiology assistance, notes reviewed -PT consulted and following -fall risk precautions Code(s): R55 - SYNCOPE AND COLLAPSE (3) Wrist fracture, left Assessment/Plan: -reduction done in ED -follow up with ortho in one week Code(s): S62.102A - FRACTURE OF UNSP CARPAL BONE, LEFT WRIST, INIT FOR CLOS FX Qualifiers: Encounter type: initial encounter Fracture type: closed Qualified Code(s): S62.102A - Fracture of unspecified carpal bone, left wrist, initial encounter for closed fracture (4) Atrial fibrillation Assessment/Plan: -continue eliquis and metoprolol -high risk for CVA so eliquis continued Code(s): I48.91 - UNSPECIFIED ATRIAL FIBRILLATION Qualifiers: Atrial fibrillation type: paroxysmal Qualified Code(s): I48.0 - Paroxysmal atrial fibrillation (5) GERD (gastroesophageal reflux disease) Assessment/Plan: -continue protonix Code(s): K21.9 - GASTRO-ESOPHAGEAL REFLUX DISEASE WITHOUT ESOPHAGITIS Qualifiers: Esophagitis presence: without esophagitis Qualified Code(s): K21.9 - Gastro-esophageal reflux disease without esophagitis (6) Hypercholesteremia Assessment/Plan: -continue statin Code(s): E78.0 - PURE HYPERCHOLESTEROLEMIA * DO NOT USE * (7) Hypertension Assessment/Plan: -improved control -monitor -may have been elevated secondary to pain yesterday Code(s): I10 - ESSENTIAL (PRIMARY) HYPERTENSION Qualifiers: Hypertension type: essential hypertension Qualified Code(s): I10 - Essential (primary) hypertension (8) Hypothyroid Assessment/Plan: -continue synthroid Code(s): E03.9 - HYPOTHYROIDISM, UNSPECIFIED Qualifiers: Hypothyroidism type: unspecified Qualified Code(s): E03.9 - Hypothyroidism, unspecified
[2017-01-10] MEDS: ATORVASTATIN CA 20 MG TABLET (FP) PO SCH (21:41)
[2017-01-11] MEDS: LEVOTHYROXINE NA 112 MCG TABLET (FP) PO SCH (06:18)
[2017-01-11 07:43] LABS: BASOPHIL 0.9 % (0-2.0); MCH 29.4 pg (25.7-33.7); MCHC 33.6 g/dl (32.0-36.0); MEAN CELL VOLUME 87.5 fl (80-96); MEAN PLT VOLUME 9.1 fl (7.5-11.1); NEUTROPHILS 64.3 % (42.8-82.8); PLATELET COUNT 197 K/MM3 (134-434); RDW 18.4 % (11.6-15.6); WHITE BLOOD COUNT 9.6 K/mm3 (4.0-10.0)
[2017-01-11 08:26] LABS: ANION GAP 10 (8-16); CALCIUM 8.5 mg/dL (8.5-10.1); CO2 28 mmol/L (21-32); CREATININE 0.6 mg/dL (0.55-1.02); GLUCOSE,RANDOM 87 mg/dL (74-106); MAGNESIUM 2.5 mg/dL (1.8-2.4); PHOSPHOROUS 4.1 mg/dL (2.5-4.9)
[2017-01-11] MEDS ORDERED: PT OWN MED DRAWER 7, Y5N ONE (09:42)
[2017-01-11] MEDS: PANTOPRAZOLE 40 MG TABLET (FP) PO SCH (09:51)
[2017-01-11] MEDS: GABAPENTIN 300 MG CAPSULE (FP) PO SCH ×2 (09:51→21:34)
[2017-01-11] MEDS: LISINOPRIL 10 MG TABLET (FP) PO SCH (09:51)
[2017-01-11] MEDS: METOPROLOL TARTRATE 25 MG TABLET (FP) PO SCH ×2 (09:52→21:34)
[2017-01-11] MEDS: APIXABAN 2.5 MG TABLET PO SCH ×2 (09:52→21:34)
[2017-01-11] MEDS: DULoxetine HCL 20 MG CAPSULE.DR (FP) PO SCH ×2 (09:52→21:34)
--- NOTE | 2017-01-11 10:12 | PN ---
Progress Note (short form) - Note Progress Note: Neurology 89 yo female presents to hospital after falling when getting out of bed on morning of admission. She recalls moving her feet to the right side of the bed to get off, then next thing she knew she was on the floor with pain in her left hand. Does not recall feeling faint, does not recall hitting her head, but had abrasion on nose (new after the fall). Ct head compelted and reviewed and showed no acute changes, chronic R temp/occip infarct noted. CT face reviewed without acute fractures. Mental status at baseline and she was able to tell me name, location ([facility]), month and year. Does have Atrial Fibrillation and on AC therefore fall is a significant concern with her. No acute events overnight, still fatigued appearing but stable. No new complaints. Active Medications Acetaminophen (Tylenol -) 650 mg PO Q4H PRN PRN Reason: FEVER OR PAIN Apixaban (Eliquis -) 2.5 mg PO BID [facility] Last Admin: 01/11/17 09:52 Dose: 2.5 mg Atorvastatin Calcium (Lipitor -) 20 mg PO HS [facility] Last Admin: 01/10/17 21:41 Dose: 20 mg Duloxetine HCl (Cymbalta -) 20 mg PO BID [facility] Last Admin: 01/11/17 09:52 Dose: 20 mg Gabapentin (Neurontin -) 300 mg PO BID [facility] Last Admin: 01/11/17 09:51 Dose: 300 mg Ertapenem 1 gm/ Sodium (Chloride) 50 mls @ 50 mls/hr IVPB DAILY [facility] PRN Reason: Protocol Last Admin: 01/10/17 09:59 Dose: 50 mls/hr Levothyroxine Sodium (Synthroid -) 112 mcg PO DAILY@0700 [facility] Last Admin: 01/11/17 06:18 Dose: 112 mcg Lisinopril (Prinivil) 10 mg PO DAILY [facility] Last Admin: 01/11/17 09:51 Dose: 10 mg Metoprolol Tartrate (Lopressor -) 25 mg PO BID [facility] Last Admin: 01/11/17 09:52 Dose: 25 mg Morphine Sulfate (Morphine Injection -) 2 mg IVPUSH Q4H PRN PRN Reason: PAIN LEVEL 6-10 Last Admin: 01/09/17 07:14 Dose: 2 mg Oxycodone HCl (Roxicodone -) 5 mg PO Q4H PRN PRN Reason: PAIN Last Admin: 01/10/17 21:41 Dose: 5 mg Pantoprazole Sodium (Protonix -) 40 mg PO DAILY [facility] Last Admin: 01/11/17 09:51 Dose: 40 mg Physical Examination Vital Signs Temperature 98 F 01/11/17 06:00 Pulse Rate 84 01/11/17 06:00 Respiratory Rate 18 01/11/17 06:00 Blood Pressure 110/55 01/11/17 06:00 O2 Sat by Pulse Oximetry (%) 97 01/10/17 20:46 Constitutional: Yes: No Distress, Calm Eyes: Yes: Conjunctiva Clear, EOM Intact, PERRL HENT: Yes: Other (abrasion on bridge of nose) Neck: Yes: Supple, Trachea Midline Cardiovascular: Yes: Pulse Irregular, S1, S2. No: Murmur Respiratory: Yes: Regular, CTA Bilaterally. No: Rales, Rhonchi, Wheezes Gastrointestinal: Yes: Normal Bowel Sounds, Soft. No: Distention, Tenderness Extremities: Yes: Other (cast on left wrist) Edema: No Neurological: Yes: Alert, Oriented Labs: CBCD WBC 9.6 K/mm3 (4.0-10.0) 01/11/17 06:00 RBC 4.12 M/mm3 (3.60-5.2) 01/11/17 06:00 Hgb 12.1 GM/dL (10.7-15.3) 01/11/17 06:00 Hct 36.0 % (32.4-45.2) 01/11/17 06:00 MCV 87.5 fl (80-96) 01/11/17 06:00 MCHC 33.6 g/dl (32.0-36.0) 01/11/17 06:00 RDW 18.4 % (11.6-15.6) H 01/11/17 06:00 Plt Count 197 K/MM3 (134-434) 01/11/17 06:00 MPV 9.1 fl (7.5-11.1) 01/11/17 06:00 CMP Sodium 142 mmol/L (136-145) 01/11/17 06:00 Potassium 4.2 mmol/L (3.5-5.1) 01/11/17 06:00 Chloride 104 mmol/L (98-107) 01/11/17 06:00 Carbon Dioxide 28 mmol/L (21-32) 01/11/17 06:00 Anion Gap 10 (8-16) 01/11/17 06:00 BUN 25 mg/dL (7-18) H D 01/11/17 06:00 Creatinine 0.6 mg/dL (0.55-1.02) 01/11/17 06:00 Creat Clearance w eGFR > 60 (>60) 01/09/17 06:00 Calcium 8.5 mg/dL (8.5-10.1) 01/11/17 06:00 Total Bilirubin 0.7 mg/dL (0.2-1.0) D 01/09/17 06:00 AST 15 U/L (15-37) 01/09/17 06:00 ALT 21 U/L (12-78) 01/09/17 06:00 Alkaline Phosphatase 69 U/L (45-117) 01/09/17 06:00 Total Protein 6.1 g/dl (6.4-8.2) L 01/09/17 06:00 Albumin 3.0 g/dl (3.4-5.0) L 01/09/17 06:00 Imaging - Results Chest X-ray: Report Reviewed (no acute lung disease) X-ray: Report Reviewed (left distal ulna/radius fractures seen) Cat Scan: Report Reviewed (CT head with chronic temp/occip infarct on right, no acute changes or findings CT face without acute fractures (old nasal fracture seen)) Plan 89 yo female presents to hospital after falling when getting out of bed on morning of admission. She recalls moving her feet to the right side of the bed to get off, then next thing she knew she was on the floor with pain in her left hand. Does not recall feeling faint, does not recall hitting her head, but had abrasion on nose (new after the fall). Ct head compelted and reviewed and showed no acute changes, chronic R temp/occip infarct noted. CT face reviewed without acute fractures. Mental status at baseline and she was able to tell me name, location ([facility]), month and year. Does have Atrial Fibrillation and on AC therefore fall is a significant concern with her. Continue treatment for UTI , ID consult. Is on Eliquis with multiple falls and need to reduce her fall risk. Physical therapy recommended. Does have high risk for CVA and cannot rule out TIA as this episode, though more likely syncopal. Continue cardiology evaluation. Fall precautions. Assistive device as needed. No new complaints neurologically stable at this time.
[2017-01-11] MEDS: ERTAPENEM SODIUM 1 GM in SODIUM CHLORIDE 50 ML IVPB SCH (10:57)
[2017-01-11] MEDS: oxyCODONE HCL 5 MG TABLET PO PRN ×2 (11:05→21:34)
--- NOTE | 2017-01-11 11:42 | PN ---
Progress Note, Physician Chief Complaint: Not in distress No new complaints History of Present Illness: Patient was seen and examined. Awake and alert. Chart was reviewed Denies chest pain, SOB or palpitations - Current Medication List Current Medications: Active Medications Acetaminophen (Tylenol -) 650 mg PO Q4H PRN PRN Reason: FEVER OR PAIN Apixaban (Eliquis -) 2.5 mg PO BID [facility] Last Admin: 01/11/17 09:52 Dose: 2.5 mg Atorvastatin Calcium (Lipitor -) 20 mg PO HS [facility] Last Admin: 01/10/17 21:41 Dose: 20 mg Duloxetine HCl (Cymbalta -) 20 mg PO BID [facility] Last Admin: 01/11/17 09:52 Dose: 20 mg Gabapentin (Neurontin -) 300 mg PO BID [facility] Last Admin: 01/11/17 09:51 Dose: 300 mg Ertapenem 1 gm/ Sodium (Chloride) 50 mls @ 50 mls/hr IVPB DAILY [facility] PRN Reason: Protocol Last Admin: 01/11/17 10:57 Dose: 50 mls/hr Levothyroxine Sodium (Synthroid -) 112 mcg PO DAILY@0700 [facility] Last Admin: 01/11/17 06:18 Dose: 112 mcg Lisinopril (Prinivil) 10 mg PO DAILY [facility] Last Admin: 01/11/17 09:51 Dose: 10 mg Metoprolol Tartrate (Lopressor -) 25 mg PO BID [facility] Last Admin: 01/11/17 09:52 Dose: 25 mg Morphine Sulfate (Morphine Injection -) 2 mg IVPUSH Q4H PRN PRN Reason: PAIN LEVEL 6-10 Last Admin: 01/09/17 07:14 Dose: 2 mg Oxycodone HCl (Roxicodone -) 5 mg PO Q4H PRN PRN Reason: PAIN Last Admin: 01/11/17 11:05 Dose: 5 mg Pantoprazole Sodium (Protonix -) 40 mg PO DAILY [facility] Last Admin: 01/11/17 09:51 Dose: 40 mg - Objective Vital Signs: Vital Signs Temperature 98 F 01/11/17 06:00 Pulse Rate 84 01/11/17 06:00 Respiratory Rate 18 01/11/17 06:00 Blood Pressure 110/55 01/11/17 06:00 O2 Sat by Pulse Oximetry (%) 97 01/10/17 20:46 Neck: Yes: Supple Cardiovascular: Yes: Regular Rate and Rhythm, S1, S2. No: Murmur Respiratory: Yes: CTA Bilaterally Gastrointestinal: Yes: Normal Bowel Sounds, Soft. No: Tenderness Extremities: Yes: Other (Cast support left forearm) Edema: No Additional Findings/Remarks: - Review of Systems Constitutional: denies: Chills, Fever Cardiovascular: denies: Chest Pain, Palpitations, Shortness of Breath Respiratory: denies: Cough, Hemoptysis, Orthopnea, PND, SOB, SOB on Exertion Gastrointestinal: denies: Abdominal Pain, Constipation, Diarrhea, Melena, Nausea , Rectal Bleeding, Vomiting Genitourinary: reports: Frequency Musculoskeletal: reports: Joint Pain Neurological: denies: Change in Speech, Confusion, Dizziness, Headache, Numbness , Seizure, Syncope, Weakness Labs: CBC, BMP 01/11/17 06:00 01/11/17 06:00 Problem List - Problems (1) Wrist fracture, left Code(s): S62.102A - FRACTURE OF UNSP CARPAL BONE, LEFT WRIST, INIT FOR CLOS FX Qualifiers: Encounter type: initial encounter Fracture type: closed Qualified Code(s): S62.102A - Fracture of unspecified carpal bone, left wrist, initial encounter for closed fracture (2) Atrial fibrillation Code(s): I48.91 - UNSPECIFIED ATRIAL FIBRILLATION Qualifiers: Atrial fibrillation type: paroxysmal Qualified Code(s): I48.0 - Paroxysmal atrial fibrillation (3) Diastolic CHF, acute on chronic Code(s): I50.33 - ACUTE ON CHRONIC DIASTOLIC (CONGESTIVE) HEART FAILURE (4) GERD (gastroesophageal reflux disease) Code(s): K21.9 - GASTRO-ESOPHAGEAL REFLUX DISEASE WITHOUT ESOPHAGITIS Qualifiers: Esophagitis presence: without esophagitis Qualified Code(s): K21.9 - Gastro-esophageal reflux disease without esophagitis (5) History of stroke Code(s): Z86.73 - PRSNL HX OF TIA (TIA), AND CEREB INFRC W/O RESID DEFICITS (6) Hypercholesteremia Code(s): E78.0 - PURE HYPERCHOLESTEROLEMIA * DO NOT USE * (7) Hypertension Code(s): I10 - ESSENTIAL (PRIMARY) HYPERTENSION Qualifiers: Hypertension type: essential hypertension Qualified Code(s): I10 - Essential (primary) hypertension (8) Hypothyroid Code(s): E03.9 - HYPOTHYROIDISM, UNSPECIFIED Qualifiers: Hypothyroidism type: unspecified Qualified Code(s): E03.9 - Hypothyroidism, unspecified (9) Pain of right knee after injury Code(s): M25.561 - PAIN IN RIGHT KNEE (10) Right patella fracture Code(s): S82.001A - UNSP FRACTURE OF RIGHT PATELLA, INIT FOR CLOS FX Qualifiers: Encounter type: initial encounter Fracture type: closed Fracture morphology: unspecified fracture morphology Fracture alignment: displaced Qualified Code(s): S82.001A - Unspecified fracture of right patella, initial encounter for closed fracture (11) UTI (urinary tract infection) Code(s): N39.0 - URINARY TRACT INFECTION, SITE NOT SPECIFIED Qualifiers: Urinary tract infection type: acute cystitis Hematuria presence: without hematuria Qualified Code(s): N30.00 - Acute cystitis without hematuria Assessment/Plan 1. Mechanical fall resulting in left radial and ulnar fracture, no LOC 2. Hypertension/hypertensive cardiovascular disease - blood pressure improved 3. Hypercholesterolemia 4. Mitral valve disease - MVP 5. Paroxysmal atrial fibrillation on NOAC 6. 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 GERD/esophageal spasm 8. Spinal stenosis with sciatica 9. Musculoskeletal pain post previous fall resulting in patella fracture 10. Hypothyroidism 11. UTI PLAN: 1. Orthopedic follow up and management 2. Continue Metoprolol and Lisinopril as tolerated and titrate accordingly 3. Continue Eliquis as tolerated 4. Continue Atorvastatin 5. Continue thyroid replacement therapy 6. Analgesics as needed 7. Antibiotic coverage as per ID Further plans are to follow. Follow up as outpatient Shakir Cheney MD
--- NOTE | 2017-01-11 12:37 | PN ---
Progress Note, Physician History of Present Illness: patient stable no new issues - Current Medication List Current Medications: Active Medications Acetaminophen (Tylenol -) 650 mg PO Q4H PRN PRN Reason: FEVER OR PAIN Apixaban (Eliquis -) 2.5 mg PO BID [facility] Last Admin: 01/11/17 09:52 Dose: 2.5 mg Atorvastatin Calcium (Lipitor -) 20 mg PO HS [facility] Last Admin: 01/10/17 21:41 Dose: 20 mg Duloxetine HCl (Cymbalta -) 20 mg PO BID [facility] Last Admin: 01/11/17 09:52 Dose: 20 mg Gabapentin (Neurontin -) 300 mg PO BID [facility] Last Admin: 01/11/17 09:51 Dose: 300 mg Levothyroxine Sodium (Synthroid -) 112 mcg PO DAILY@0700 [facility] Last Admin: 01/11/17 06:18 Dose: 112 mcg Lisinopril (Prinivil) 10 mg PO DAILY [facility] Last Admin: 01/11/17 09:51 Dose: 10 mg Metoprolol Tartrate (Lopressor -) 25 mg PO BID [facility] Last Admin: 01/11/17 09:52 Dose: 25 mg Morphine Sulfate (Morphine Injection -) 2 mg IVPUSH Q4H PRN PRN Reason: PAIN LEVEL 6-10 Last Admin: 01/09/17 07:14 Dose: 2 mg Oxycodone HCl (Roxicodone -) 5 mg PO Q4H PRN PRN Reason: PAIN Last Admin: 01/11/17 11:05 Dose: 5 mg Pantoprazole Sodium (Protonix -) 40 mg PO DAILY [facility] Last Admin: 01/11/17 09:51 Dose: 40 mg - Objective Vital Signs: Vital Signs Temperature 97.5 F L 01/11/17 09:00 Pulse Rate 72 01/11/17 09:00 Respiratory Rate 18 01/11/17 09:00 Blood Pressure 112/51 01/11/17 09:00 O2 Sat by Pulse Oximetry (%) 97 01/11/17 09:00 Constitutional: Yes: No Distress, Calm Cardiovascular: Yes: Regular Rate and Rhythm Respiratory: Yes: Regular, CTA Bilaterally Gastrointestinal: Yes: Normal Bowel Sounds, Soft Musculoskeletal: Yes: WNL Extremities: Yes: WNL Neurological: Yes: Alert, Oriented Psychiatric: Yes: Alert Labs: CBC, BMP 01/11/17 06:00 01/11/17 06:00 Assessment/Plan Problem List - Problems (1) Wrist fracture, left Code(s): S62.102A - FRACTURE OF UNSP CARPAL BONE, LEFT WRIST, INIT FOR CLOS FX Qualifiers: Encounter type: initial encounter Fracture type: closed Qualified Code(s): S62.102A - Fracture of unspecified carpal bone, left wrist, initial encounter for closed fracture (2) Atrial fibrillation Code(s): I48.91 - UNSPECIFIED ATRIAL FIBRILLATION Qualifiers: Atrial fibrillation type: paroxysmal Qualified Code(s): I48.0 - Paroxysmal atrial fibrillation (3) Diastolic CHF, acute on chronic Code(s): I50.33 - ACUTE ON CHRONIC DIASTOLIC (CONGESTIVE) HEART FAILURE (4) GERD (gastroesophageal reflux disease) Code(s): K21.9 - GASTRO-ESOPHAGEAL REFLUX DISEASE WITHOUT ESOPHAGITIS Qualifiers: Esophagitis presence: without esophagitis Qualified Code(s): K21.9 - Gastro-esophageal reflux disease without esophagitis (5) History of stroke Code(s): Z86.73 - PRSNL HX OF TIA (TIA), AND CEREB INFRC W/O RESID DEFICITS (6) Hypercholesteremia Code(s): E78.0 - PURE HYPERCHOLESTEROLEMIA * DO NOT USE * (7) Hypertension Code(s): I10 - ESSENTIAL (PRIMARY) HYPERTENSION Qualifiers: Hypertension type: essential hypertension Qualified Code(s): I10 - Essential (primary) hypertension (8) Hypothyroid Code(s): E03.9 - HYPOTHYROIDISM, UNSPECIFIED Qualifiers: Hypothyroidism type: unspecified Qualified Code(s): E03.9 - Hypothyroidism, unspecified (9) Pain of right knee after injury Code(s): M25.561 - PAIN IN RIGHT KNEE (10) Right patella fracture Code(s): S82.001A - UNSP FRACTURE OF RIGHT PATELLA, INIT FOR CLOS FX Qualifiers: Encounter type: initial encounter Fracture type: closed Fracture morphology: unspecified fracture morphology Fracture alignment: displaced Qualified Code(s): S82.001A - Unspecified fracture of right patella, initial encounter for closed fracture (11) UTI (urinary tract infection) Code(s): N39.0 - URINARY TRACT INFECTION, SITE NOT SPECIFIED Qualifiers: Urinary tract infection type: site unspecified Hematuria presence: without hematuria Qualified Code(s): N39.0 - Urinary tract infection, site not specified plan will stop abx cx report noted
--- NOTE | 2017-01-11 13:35 | PN ---
Progress Note, Physician Chief Complaint: Ms Mei complains of L wrist pain. no cp, sob, n/v. - Current Medication List Current Medications: Active Medications Acetaminophen (Tylenol -) 650 mg PO Q4H PRN PRN Reason: FEVER OR PAIN Apixaban (Eliquis -) 2.5 mg PO BID [facility] Last Admin: 01/11/17 09:52 Dose: 2.5 mg Atorvastatin Calcium (Lipitor -) 20 mg PO HS [facility] Last Admin: 01/10/17 21:41 Dose: 20 mg Duloxetine HCl (Cymbalta -) 20 mg PO BID [facility] Last Admin: 01/11/17 09:52 Dose: 20 mg Gabapentin (Neurontin -) 300 mg PO BID [facility] Last Admin: 01/11/17 09:51 Dose: 300 mg Levothyroxine Sodium (Synthroid -) 112 mcg PO DAILY@0700 [facility] Last Admin: 01/11/17 06:18 Dose: 112 mcg Lisinopril (Prinivil) 10 mg PO DAILY [facility] Last Admin: 01/11/17 09:51 Dose: 10 mg Metoprolol Tartrate (Lopressor -) 25 mg PO BID [facility] Last Admin: 01/11/17 09:52 Dose: 25 mg Morphine Sulfate (Morphine Injection -) 2 mg IVPUSH Q4H PRN PRN Reason: PAIN LEVEL 6-10 Last Admin: 01/09/17 07:14 Dose: 2 mg Oxycodone HCl (Roxicodone -) 5 mg PO Q4H PRN PRN Reason: PAIN Last Admin: 01/11/17 11:05 Dose: 5 mg Pantoprazole Sodium (Protonix -) 40 mg PO DAILY [facility] Last Admin: 01/11/17 09:51 Dose: 40 mg - Objective Vital Signs: Vital Signs Temperature 36.4 C L 01/11/17 09:00 Pulse Rate 72 01/11/17 09:00 Respiratory Rate 18 01/11/17 09:00 Blood Pressure 112/51 01/11/17 09:00 O2 Sat by Pulse Oximetry (%) 97 01/11/17 09:00 Constitutional: Yes: Well Nourished, No Distress, Calm Cardiovascular: Yes: Regular Rate and Rhythm. No: Gallop, Murmur, Rub Respiratory: Yes: Regular, CTA Bilaterally. No: Rales, Rhonchi, Wheezes Gastrointestinal: Yes: Normal Bowel Sounds, Soft. No: Distention, Tenderness Extremities: Yes: Other (L arm in splint) Edema: No Labs: CBC, BMP 01/11/17 06:00 01/11/17 06:00 Problem List - Problems (1) UTI (urinary tract infection) Code(s): N39.0 - URINARY TRACT INFECTION, SITE NOT SPECIFIED Qualifiers: Urinary tract infection type: acute cystitis Hematuria presence: without hematuria Qualified Code(s): N30.00 - Acute cystitis without hematuria (2) Syncope Code(s): R55 - SYNCOPE AND COLLAPSE (3) Wrist fracture, left Code(s): S62.102A - FRACTURE OF UNSP CARPAL BONE, LEFT WRIST, INIT FOR CLOS FX Qualifiers: Encounter type: initial encounter Fracture type: closed Qualified Code(s): S62.102A - Fracture of unspecified carpal bone, left wrist, initial encounter for closed fracture (4) Atrial fibrillation Code(s): I48.91 - UNSPECIFIED ATRIAL FIBRILLATION Qualifiers: Atrial fibrillation type: paroxysmal Qualified Code(s): I48.0 - Paroxysmal atrial fibrillation (5) GERD (gastroesophageal reflux disease) Code(s): K21.9 - GASTRO-ESOPHAGEAL REFLUX DISEASE WITHOUT ESOPHAGITIS Qualifiers: Esophagitis presence: without esophagitis Qualified Code(s): K21.9 - Gastro-esophageal reflux disease without esophagitis (6) Hypercholesteremia Code(s): E78.0 - PURE HYPERCHOLESTEROLEMIA * DO NOT USE * (7) Hypertension Code(s): I10 - ESSENTIAL (PRIMARY) HYPERTENSION Qualifiers: Hypertension type: essential hypertension Qualified Code(s): I10 - Essential (primary) hypertension (8) Hypothyroid Code(s): E03.9 - HYPOTHYROIDISM, UNSPECIFIED Qualifiers: Hypothyroidism type: unspecified Qualified Code(s): E03.9 - Hypothyroidism, unspecified Assessment/Plan (1) UTI (urinary tract infection) Assessment/Plan: -urine cultures negative -d/w Dr Cadet -can stop antibiotics Code(s): N39.0 - URINARY TRACT INFECTION, SITE NOT SPECIFIED Qualifiers: Urinary tract infection type: acute cystitis Hematuria presence: without hematuria Qualified Code(s): N30.00 - Acute cystitis without hematuria (2) Syncope Assessment/Plan: -appreciate neurology and cardiology assistance, notes reviewed -PT consulted and following -fall risk precautions Code(s): R55 - SYNCOPE AND COLLAPSE (3) Wrist fracture, left Assessment/Plan: -reduction done in ED -follow up with ortho in one week Code(s): S62.102A - FRACTURE OF UNSP CARPAL BONE, LEFT WRIST, INIT FOR CLOS FX Qualifiers: Encounter type: initial encounter Fracture type: closed Qualified Code(s): S62.102A - Fracture of unspecified carpal bone, left wrist, initial encounter for closed fracture (4) Atrial fibrillation Assessment/Plan: -continue eliquis and metoprolol -high risk for CVA so eliquis continued Code(s): I48.91 - UNSPECIFIED ATRIAL FIBRILLATION Qualifiers: Atrial fibrillation type: paroxysmal Qualified Code(s): I48.0 - Paroxysmal atrial fibrillation (5) GERD (gastroesophageal reflux disease) Assessment/Plan: -continue protonix Code(s): K21.9 - GASTRO-ESOPHAGEAL REFLUX DISEASE WITHOUT ESOPHAGITIS Qualifiers: Esophagitis presence: without esophagitis Qualified Code(s): K21.9 - Gastro-esophageal reflux disease without esophagitis (6) Hypercholesteremia Assessment/Plan: -continue statin Code(s): E78.0 - PURE HYPERCHOLESTEROLEMIA * DO NOT USE * (7) Hypertension Assessment/Plan: -improved control -monitor -may have been elevated secondary to pain yesterday Code(s): I10 - ESSENTIAL (PRIMARY) HYPERTENSION Qualifiers: Hypertension type: essential hypertension Qualified Code(s): I10 - Essential (primary) hypertension (8) Hypothyroid Assessment/Plan: -continue synthroid Code(s): E03.9 - HYPOTHYROIDISM, UNSPECIFIED Qualifiers: Hypothyroidism type: unspecified Qualified Code(s): E03.9 - Hypothyroidism, unspecified Dispo -possible discharge tomorrow -would benefit from SNF placement
[2017-01-11] MEDS: ATORVASTATIN CA 20 MG TABLET (FP) PO SCH (21:34)
[2017-01-12] MEDS: oxyCODONE HCL 5 MG TABLET PO PRN (03:43)
[2017-01-12] MEDS: LEVOTHYROXINE NA 112 MCG TABLET (FP) PO SCH (07:02)
[2017-01-12 08:02] LABS: BASOPHIL 0.7 % (0-2.0); EOSINOPHIL 3.3 % (0-4.5); MCHC 33.1 g/dl (32.0-36.0); MEAN CELL VOLUME 87.7 fl (80-96); MEAN PLT VOLUME 9.2 fl (7.5-11.1); NEUTROPHILS 66.5 % (42.8-82.8); PLATELET COUNT 229 K/MM3 (134-434); RDW 18.3 % (11.6-15.6); WHITE BLOOD COUNT 8.4 K/mm3 (4.0-10.0)
[2017-01-12 08:12] LABS: ANION GAP 9 (8-16); CO2 26 mmol/L (21-32); GLUCOSE,RANDOM 86 mg/dL (74-106)
[2017-01-12 08:15] LABS: CALCIUM 8.9 mg/dL (8.5-10.1); CREATININE 0.5 mg/dL (0.55-1.02); MAGNESIUM 2.3 mg/dL (1.8-2.4); PHOSPHOROUS 3.6 mg/dL (2.5-4.9)
--- NOTE | 2017-01-12 09:26 | PN ---
Progress Note, Physician Chief Complaint: Not in distress No new complaints History of Present Illness: Patient was seen and examined. Awake and alert. Chart was reviewed Denies chest pain, SOB or palpitations Appeared a little confused at first, but then better later - Current Medication List Current Medications: Active Medications Acetaminophen (Tylenol -) 650 mg PO Q4H PRN PRN Reason: FEVER OR PAIN Apixaban (Eliquis -) 2.5 mg PO BID [facility] Last Admin: 01/11/17 21:34 Dose: 2.5 mg Atorvastatin Calcium (Lipitor -) 20 mg PO HS [facility] Last Admin: 01/11/17 21:34 Dose: 20 mg Duloxetine HCl (Cymbalta -) 20 mg PO BID [facility] Last Admin: 01/11/17 21:34 Dose: 20 mg Gabapentin (Neurontin -) 300 mg PO BID [facility] Last Admin: 01/11/17 21:34 Dose: 300 mg Levothyroxine Sodium (Synthroid -) 112 mcg PO DAILY@0700 [facility] Last Admin: 01/12/17 07:02 Dose: 112 mcg Lisinopril (Prinivil) 10 mg PO DAILY [facility] Last Admin: 01/11/17 09:51 Dose: 10 mg Metoprolol Tartrate (Lopressor -) 25 mg PO BID [facility] Last Admin: 01/11/17 21:34 Dose: 25 mg Morphine Sulfate (Morphine Injection -) 2 mg IVPUSH Q4H PRN PRN Reason: PAIN LEVEL 6-10 Last Admin: 01/09/17 07:14 Dose: 2 mg Oxycodone HCl (Roxicodone -) 5 mg PO Q4H PRN PRN Reason: PAIN Last Admin: 01/12/17 03:43 Dose: 5 mg Pantoprazole Sodium (Protonix -) 40 mg PO DAILY [facility] Last Admin: 01/11/17 09:51 Dose: 40 mg - Objective Vital Signs: Vital Signs Temperature 98.4 F 01/12/17 07:12 Pulse Rate 57 L 01/12/17 07:12 Respiratory Rate 20 01/12/17 07:12 Blood Pressure 129/54 01/12/17 07:12 O2 Sat by Pulse Oximetry (%) 97 01/11/17 21:00 Neck: Yes: Supple Cardiovascular: Yes: Regular Rate and Rhythm, S1, S2 Respiratory: Yes: CTA Bilaterally Gastrointestinal: Yes: Normal Bowel Sounds, Soft. No: Tenderness Edema: No Labs: CBC, BMP 01/12/17 06:00 01/12/17 06:00 Problem List - Problems (1) Wrist fracture, left Code(s): S62.102A - FRACTURE OF UNSP CARPAL BONE, LEFT WRIST, INIT FOR CLOS FX Qualifiers: Encounter type: initial encounter Fracture type: closed Qualified Code(s): S62.102A - Fracture of unspecified carpal bone, left wrist, initial encounter for closed fracture (2) Atrial fibrillation Code(s): I48.91 - UNSPECIFIED ATRIAL FIBRILLATION Qualifiers: Atrial fibrillation type: paroxysmal Qualified Code(s): I48.0 - Paroxysmal atrial fibrillation (3) Diastolic CHF, acute on chronic Code(s): I50.33 - ACUTE ON CHRONIC DIASTOLIC (CONGESTIVE) HEART FAILURE (4) GERD (gastroesophageal reflux disease) Code(s): K21.9 - GASTRO-ESOPHAGEAL REFLUX DISEASE WITHOUT ESOPHAGITIS Qualifiers: Esophagitis presence: without esophagitis Qualified Code(s): K21.9 - Gastro-esophageal reflux disease without esophagitis (5) History of stroke Code(s): Z86.73 - PRSNL HX OF TIA (TIA), AND CEREB INFRC W/O RESID DEFICITS (6) Hypercholesteremia Code(s): E78.0 - PURE HYPERCHOLESTEROLEMIA * DO NOT USE * (7) Hypertension Code(s): I10 - ESSENTIAL (PRIMARY) HYPERTENSION Qualifiers: Hypertension type: essential hypertension Qualified Code(s): I10 - Essential (primary) hypertension (8) Hypothyroid Code(s): E03.9 - HYPOTHYROIDISM, UNSPECIFIED Qualifiers: Hypothyroidism type: unspecified Qualified Code(s): E03.9 - Hypothyroidism, unspecified (9) Pain of right knee after injury Code(s): M25.561 - PAIN IN RIGHT KNEE (10) Right patella fracture Code(s): S82.001A - UNSP FRACTURE OF RIGHT PATELLA, INIT FOR CLOS FX Qualifiers: Encounter type: initial encounter Fracture type: closed Fracture morphology: unspecified fracture morphology Fracture alignment: displaced Qualified Code(s): S82.001A - Unspecified fracture of right patella, initial encounter for closed fracture (11) UTI (urinary tract infection) Code(s): N39.0 - URINARY TRACT INFECTION, SITE NOT SPECIFIED Qualifiers: Urinary tract infection type: acute cystitis Hematuria presence: without hematuria Qualified Code(s): N30.00 - Acute cystitis without hematuria Assessment/Plan 1. Mechanical fall resulting in left radial and ulnar fracture, no LOC 2. Hypertension/hypertensive cardiovascular disease - blood pressure improved 3. Hypercholesterolemia 4. Mitral valve disease - MVP 5. Paroxysmal atrial fibrillation on NOAC 6. 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 GERD/esophageal spasm 8. Spinal stenosis with sciatica 9. Musculoskeletal pain post previous fall resulting in patella fracture 10. Hypothyroidism 11. UTI PLAN: 1. Continue management upon discharge regarding left forearm support - follow with orthopedics 2. Continue Metoprolol and Lisinopril as tolerated and titrate accordingly 3. Continue Eliquis as tolerated 4. Continue Atorvastatin 5. Continue thyroid replacement therapy 6. Analgesics as needed 7. Antibiotic coverage as per ID Further plans are to follow. Follow up as outpatient Shakir Cheney MD
[2017-01-12] MEDS ORDERED: PT OWN MED DRAWER 7, Y5N ONE ×2 (10:08→21:35)
[2017-01-12] MEDS: DULoxetine HCL 20 MG CAPSULE.DR (FP) PO SCH ×2 (10:13→22:21)
[2017-01-12] MEDS: PANTOPRAZOLE 40 MG TABLET (FP) PO SCH (10:13)
[2017-01-12] MEDS: GABAPENTIN 300 MG CAPSULE (FP) PO SCH ×2 (10:13→22:21)
[2017-01-12] MEDS: APIXABAN 2.5 MG TABLET PO SCH ×2 (10:14→22:21)
[2017-01-12] MEDS: LISINOPRIL 10 MG TABLET (FP) PO SCH (10:14)
[2017-01-12] MEDS: METOPROLOL TARTRATE 25 MG TABLET (FP) PO SCH ×2 (10:14→22:21)
--- NOTE | 2017-01-12 10:25 | PN ---
Progress Note (short form) - Note Progress Note: Neurology 89 yo female presents to hospital after falling when getting out of bed on morning of admission. She recalls moving her feet to the right side of the bed to get off, then next thing she knew she was on the floor with pain in her left hand. Does not recall feeling faint, does not recall hitting her head, but had abrasion on nose (new after the fall). Ct head completed and reviewed and showed no acute changes, chronic R temp/occip infarct noted. CT face reviewed without acute fractures. Mental status at baseline and she was able to tell me name, location ([facility]), month and year. Does have Atrial Fibrillation and on AC therefore fall is a significant concern with her. No acute events overnight, still fatigued appearing but stable. No new complaints. Active Medications Acetaminophen (Tylenol -) 650 mg PO Q4H PRN PRN Reason: FEVER OR PAIN Apixaban (Eliquis -) 2.5 mg PO BID [facility] Last Admin: 01/12/17 10:14 Dose: 2.5 mg Atorvastatin Calcium (Lipitor -) 20 mg PO HS [facility] Last Admin: 01/11/17 21:34 Dose: 20 mg Duloxetine HCl (Cymbalta -) 20 mg PO BID [facility] Last Admin: 01/12/17 10:13 Dose: 20 mg Gabapentin (Neurontin -) 300 mg PO BID [facility] Last Admin: 01/12/17 10:13 Dose: 300 mg Levothyroxine Sodium (Synthroid -) 112 mcg PO DAILY@0700 [facility] Last Admin: 01/12/17 07:02 Dose: 112 mcg Lisinopril (Prinivil) 10 mg PO DAILY [facility] Last Admin: 01/12/17 10:14 Dose: Not Given Metoprolol Tartrate (Lopressor -) 25 mg PO BID [facility] Last Admin: 01/12/17 10:14 Dose: Not Given Morphine Sulfate (Morphine Injection -) 2 mg IVPUSH Q4H PRN PRN Reason: PAIN LEVEL 6-10 Last Admin: 01/09/17 07:14 Dose: 2 mg Oxycodone HCl (Roxicodone -) 5 mg PO Q4H PRN PRN Reason: PAIN Last Admin: 01/12/17 03:43 Dose: 5 mg Pantoprazole Sodium (Protonix -) 40 mg PO DAILY [facility] Last Admin: 01/12/17 10:13 Dose: 40 mg Physical Examination Vital Signs Temperature 98.4 F 01/12/17 07:12 Pulse Rate 57 L 01/12/17 07:12 Respiratory Rate 20 01/12/17 07:12 Blood Pressure 129/54 01/12/17 07:12 O2 Sat by Pulse Oximetry (%) 97 01/11/17 21:00 Constitutional: Yes: No Distress, Calm Eyes: Yes: Conjunctiva Clear, EOM Intact, PERRL HENT: Yes: Other (abrasion on bridge of nose) Neck: Yes: Supple, Trachea Midline Cardiovascular: Yes: Pulse Irregular, S1, S2. No: Murmur Respiratory: Yes: Regular, CTA Bilaterally. No: Rales, Rhonchi, Wheezes Gastrointestinal: Yes: Normal Bowel Sounds, Soft. No: Distention, Tenderness Extremities: Yes: Other (cast on left wrist) Edema: No Neurological: Yes: Alert, Oriented Labs: CBCD WBC 8.4 K/mm3 (4.0-10.0) 01/12/17 06:00 RBC 4.05 M/mm3 (3.60-5.2) 01/12/17 06:00 Hgb 11.8 GM/dL (10.7-15.3) 01/12/17 06:00 Hct 35.5 % (32.4-45.2) 01/12/17 06:00 MCV 87.7 fl (80-96) 01/12/17 06:00 MCHC 33.1 g/dl (32.0-36.0) 01/12/17 06:00 RDW 18.3 % (11.6-15.6) H 01/12/17 06:00 Plt Count 229 K/MM3 (134-434) 01/12/17 06:00 MPV 9.2 fl (7.5-11.1) 01/12/17 06:00 CMP Sodium 140 mmol/L (136-145) 01/12/17 06:00 Potassium 4.3 mmol/L (3.5-5.1) 01/12/17 06:00 Chloride 105 mmol/L (98-107) 01/12/17 06:00 Carbon Dioxide 26 mmol/L (21-32) 01/12/17 06:00 Anion Gap 9 (8-16) 01/12/17 06:00 BUN 29 mg/dL (7-18) H 01/12/17 06:00 Creatinine 0.5 mg/dL (0.55-1.02) L 01/12/17 06:00 Creat Clearance w eGFR > 60 (>60) 01/09/17 06:00 Calcium 8.9 mg/dL (8.5-10.1) 01/12/17 06:00 Total Bilirubin 0.7 mg/dL (0.2-1.0) D 01/09/17 06:00 AST 15 U/L (15-37) 01/09/17 06:00 ALT 21 U/L (12-78) 01/09/17 06:00 Alkaline Phosphatase 69 U/L (45-117) 01/09/17 06:00 Total Protein 6.1 g/dl (6.4-8.2) L 01/09/17 06:00 Albumin 3.0 g/dl (3.4-5.0) L 01/09/17 06:00 Imaging - Results Chest X-ray: Report Reviewed (no acute lung disease) X-ray: Report Reviewed (left distal ulna/radius fractures seen) Cat Scan: Report Reviewed (CT head with chronic temp/occip infarct on right, no acute changes or findings CT face without acute fractures (old nasal fracture seen)) Plan 89 yo female presents to hospital after falling when getting out of bed on morning of admission. She recalls moving her feet to the right side of the bed to get off, then next thing she knew she was on the floor with pain in her left hand. Does not recall feeling faint, does not recall hitting her head, but had abrasion on nose (new after the fall). Ct head compelted and reviewed and showed no acute changes, chronic R temp/occip infarct noted. CT face reviewed without acute fractures. Mental status at baseline and she was able to tell me name, location ([facility]), month and year. Does have Atrial Fibrillation and on AC therefore fall is a significant concern with her. Continue treatment for UTI , ID consult. Is on Eliquis with multiple falls and need to reduce her fall risk. Physical therapy recommended. Fall precautions. Assistive device as needed. No new complaints neurologically stable at this time, no further rec'd at this time.
--- NOTE | 2017-01-12 12:40 | PN ---
Progress Note, Physician History of Present Illness: patient stable no new issues hand pain - Current Medication List Current Medications: Active Medications Acetaminophen (Tylenol -) 650 mg PO Q4H PRN PRN Reason: FEVER OR PAIN Apixaban (Eliquis -) 2.5 mg PO BID [facility] Last Admin: 01/12/17 10:14 Dose: 2.5 mg Atorvastatin Calcium (Lipitor -) 20 mg PO HS [facility] Last Admin: 01/11/17 21:34 Dose: 20 mg Duloxetine HCl (Cymbalta -) 20 mg PO BID [facility] Last Admin: 01/12/17 10:13 Dose: 20 mg Gabapentin (Neurontin -) 300 mg PO BID [facility] Last Admin: 01/12/17 10:13 Dose: 300 mg Levothyroxine Sodium (Synthroid -) 112 mcg PO DAILY@0700 [facility] Last Admin: 01/12/17 07:02 Dose: 112 mcg Lisinopril (Prinivil) 10 mg PO DAILY [facility] Last Admin: 01/12/17 10:14 Dose: Not Given Metoprolol Tartrate (Lopressor -) 25 mg PO BID [facility] Last Admin: 01/12/17 10:14 Dose: Not Given Morphine Sulfate (Morphine Injection -) 2 mg IVPUSH Q4H PRN PRN Reason: PAIN LEVEL 6-10 Last Admin: 01/09/17 07:14 Dose: 2 mg Oxycodone HCl (Roxicodone -) 5 mg PO Q4H PRN PRN Reason: PAIN Last Admin: 01/12/17 03:43 Dose: 5 mg Pantoprazole Sodium (Protonix -) 40 mg PO DAILY [facility] Last Admin: 01/12/17 10:13 Dose: 40 mg - Objective Vital Signs: Vital Signs Temperature 98.4 F 01/12/17 07:12 Pulse Rate 57 L 01/12/17 07:12 Respiratory Rate 20 01/12/17 07:12 Blood Pressure 129/54 01/12/17 07:12 O2 Sat by Pulse Oximetry (%) 97 01/11/17 21:00 Constitutional: Yes: No Distress, Calm Cardiovascular: Yes: Regular Rate and Rhythm, Pulse Irregular Respiratory: Yes: Regular, CTA Bilaterally Gastrointestinal: Yes: Normal Bowel Sounds, Soft Musculoskeletal: Yes: WNL Extremities: Yes: WNL Neurological: Yes: Alert, Oriented Psychiatric: Yes: Alert, Oriented Labs: CBC, BMP 01/12/17 06:00 01/12/17 06:00 Assessment/Plan Problem List - Problems (1) Wrist fracture, left Code(s): S62.102A - FRACTURE OF UNSP CARPAL BONE, LEFT WRIST, INIT FOR CLOS FX Qualifiers: Encounter type: initial encounter Fracture type: closed Qualified Code(s): S62.102A - Fracture of unspecified carpal bone, left wrist, initial encounter for closed fracture (2) Atrial fibrillation Code(s): I48.91 - UNSPECIFIED ATRIAL FIBRILLATION Qualifiers: Atrial fibrillation type: paroxysmal Qualified Code(s): I48.0 - Paroxysmal atrial fibrillation (3) Diastolic CHF, acute on chronic Code(s): I50.33 - ACUTE ON CHRONIC DIASTOLIC (CONGESTIVE) HEART FAILURE (4) GERD (gastroesophageal reflux disease) Code(s): K21.9 - GASTRO-ESOPHAGEAL REFLUX DISEASE WITHOUT ESOPHAGITIS Qualifiers: Esophagitis presence: without esophagitis Qualified Code(s): K21.9 - Gastro-esophageal reflux disease without esophagitis (5) History of stroke Code(s): Z86.73 - PRSNL HX OF TIA (TIA), AND CEREB INFRC W/O RESID DEFICITS (6) Hypercholesteremia Code(s): E78.0 - PURE HYPERCHOLESTEROLEMIA * DO NOT USE * (7) Hypertension Code(s): I10 - ESSENTIAL (PRIMARY) HYPERTENSION Qualifiers: Hypertension type: essential hypertension Qualified Code(s): I10 - Essential (primary) hypertension (8) Hypothyroid Code(s): E03.9 - HYPOTHYROIDISM, UNSPECIFIED Qualifiers: Hypothyroidism type: unspecified Qualified Code(s): E03.9 - Hypothyroidism, unspecified (9) Pain of right knee after injury Code(s): M25.561 - PAIN IN RIGHT KNEE (10) Right patella fracture Code(s): S82.001A - UNSP FRACTURE OF RIGHT PATELLA, INIT FOR CLOS FX Qualifiers: Encounter type: initial encounter Fracture type: closed Fracture morphology: unspecified fracture morphology Fracture alignment: displaced Qualified Code(s): S82.001A - Unspecified fracture of right patella, initial encounter for closed fracture (11) UTI (urinary tract infection) Code(s): N39.0 - URINARY TRACT INFECTION, SITE NOT SPECIFIED Qualifiers: Urinary tract infection type: site unspecified Hematuria presence: without hematuria Qualified Code(s): N39.0 - Urinary tract infection, site not specified plan stable off of abx continue current mgmt
--- NOTE | 2017-01-12 13:20 | PN ---
Progress Note, Physician Chief Complaint: Ms Mei complains of L wrist pain. no cp, sob, n/v. - Current Medication List Current Medications: Active Medications Acetaminophen (Tylenol -) 650 mg PO Q4H PRN PRN Reason: FEVER OR PAIN Apixaban (Eliquis -) 2.5 mg PO BID [facility] Last Admin: 01/12/17 10:14 Dose: 2.5 mg Atorvastatin Calcium (Lipitor -) 20 mg PO HS [facility] Last Admin: 01/11/17 21:34 Dose: 20 mg Duloxetine HCl (Cymbalta -) 20 mg PO BID [facility] Last Admin: 01/12/17 10:13 Dose: 20 mg Gabapentin (Neurontin -) 300 mg PO BID [facility] Last Admin: 01/12/17 10:13 Dose: 300 mg Levothyroxine Sodium (Synthroid -) 112 mcg PO DAILY@0700 [facility] Last Admin: 01/12/17 07:02 Dose: 112 mcg Lisinopril (Prinivil) 10 mg PO DAILY [facility] Last Admin: 01/12/17 10:14 Dose: Not Given Metoprolol Tartrate (Lopressor -) 25 mg PO BID [facility] Last Admin: 01/12/17 10:14 Dose: Not Given Oxycodone HCl (Roxicodone -) 5 mg PO Q4H PRN PRN Reason: PAIN Last Admin: 01/12/17 03:43 Dose: 5 mg Pantoprazole Sodium (Protonix -) 40 mg PO DAILY [facility] Last Admin: 01/12/17 10:13 Dose: 40 mg - Objective Vital Signs: Vital Signs Temperature 36.9 C 01/12/17 07:12 Pulse Rate 57 L 01/12/17 07:12 Respiratory Rate 20 01/12/17 07:12 Blood Pressure 129/54 01/12/17 07:12 O2 Sat by Pulse Oximetry (%) 97 01/11/17 21:00 Constitutional: Yes: Well Nourished, No Distress, Calm Cardiovascular: Yes: Regular Rate and Rhythm. No: Gallop, Murmur, Rub Respiratory: Yes: Regular, CTA Bilaterally. No: Rales, Rhonchi, Wheezes Gastrointestinal: Yes: Normal Bowel Sounds, Soft. No: Distention, Tenderness Extremities: Yes: Other (L wrist in splint) Edema: No Labs: CBC, BMP 01/12/17 06:00 01/12/17 06:00 Problem List - Problems (1) UTI (urinary tract infection) Code(s): N39.0 - URINARY TRACT INFECTION, SITE NOT SPECIFIED Qualifiers: Urinary tract infection type: acute cystitis Hematuria presence: without hematuria Qualified Code(s): N30.00 - Acute cystitis without hematuria (2) Syncope Code(s): R55 - SYNCOPE AND COLLAPSE (3) Wrist fracture, left Code(s): S62.102A - FRACTURE OF UNSP CARPAL BONE, LEFT WRIST, INIT FOR CLOS FX Qualifiers: Encounter type: initial encounter Fracture type: closed Qualified Code(s): S62.102A - Fracture of unspecified carpal bone, left wrist, initial encounter for closed fracture (4) Atrial fibrillation Code(s): I48.91 - UNSPECIFIED ATRIAL FIBRILLATION Qualifiers: Atrial fibrillation type: paroxysmal Qualified Code(s): I48.0 - Paroxysmal atrial fibrillation (5) GERD (gastroesophageal reflux disease) Code(s): K21.9 - GASTRO-ESOPHAGEAL REFLUX DISEASE WITHOUT ESOPHAGITIS Qualifiers: Esophagitis presence: without esophagitis Qualified Code(s): K21.9 - Gastro-esophageal reflux disease without esophagitis (6) Hypercholesteremia Code(s): E78.0 - PURE HYPERCHOLESTEROLEMIA * DO NOT USE * (7) Hypertension Code(s): I10 - ESSENTIAL (PRIMARY) HYPERTENSION Qualifiers: Hypertension type: essential hypertension Qualified Code(s): I10 - Essential (primary) hypertension (8) Hypothyroid Code(s): E03.9 - HYPOTHYROIDISM, UNSPECIFIED Qualifiers: Hypothyroidism type: unspecified Qualified Code(s): E03.9 - Hypothyroidism, unspecified Assessment/Plan (1) UTI (urinary tract infection) Assessment/Plan: -no further need for antibiotics Code(s): N39.0 - URINARY TRACT INFECTION, SITE NOT SPECIFIED Qualifiers: Urinary tract infection type: acute cystitis Hematuria presence: without hematuria Qualified Code(s): N30.00 - Acute cystitis without hematuria (2) Syncope Assessment/Plan: -appreciate neurology and cardiology assistance, notes reviewed -PT consulted and following -fall risk precautions -safe for discharge Code(s): R55 - SYNCOPE AND COLLAPSE (3) Wrist fracture, left Assessment/Plan: -reduction done in ED -follow up with ortho in one week Code(s): S62.102A - FRACTURE OF UNSP CARPAL BONE, LEFT WRIST, INIT FOR CLOS FX Qualifiers: Encounter type: initial encounter Fracture type: closed Qualified Code(s): S62.102A - Fracture of unspecified carpal bone, left wrist, initial encounter for closed fracture (4) Atrial fibrillation Assessment/Plan: -continue eliquis and metoprolol -high risk for CVA so eliquis continued Code(s): I48.91 - UNSPECIFIED ATRIAL FIBRILLATION Qualifiers: Atrial fibrillation type: paroxysmal Qualified Code(s): I48.0 - Paroxysmal atrial fibrillation (5) GERD (gastroesophageal reflux disease) Assessment/Plan: -continue protonix Code(s): K21.9 - GASTRO-ESOPHAGEAL REFLUX DISEASE WITHOUT ESOPHAGITIS Qualifiers: Esophagitis presence: without esophagitis Qualified Code(s): K21.9 - Gastro-esophageal reflux disease without esophagitis (6) Hypercholesteremia Assessment/Plan: -continue statin Code(s): E78.0 - PURE HYPERCHOLESTEROLEMIA * DO NOT USE * (7) Hypertension Assessment/Plan: -well controlled Code(s): I10 - ESSENTIAL (PRIMARY) HYPERTENSION Qualifiers: Hypertension type: essential hypertension Qualified Code(s): I10 - Essential (primary) hypertension (8) Hypothyroid Assessment/Plan: -continue synthroid Code(s): E03.9 - HYPOTHYROIDISM, UNSPECIFIED Qualifiers: Hypothyroidism type: unspecified Qualified Code(s): E03.9 - Hypothyroidism, unspecified Dispo -patient stable for discharge, however daughter coming [facility] so unsafe discharge home -plan for discharge tomorrow, medications sent to the pharmacy -call daughter after seeing to discuss discharge
[2017-01-12] MEDS: ATORVASTATIN CA 20 MG TABLET (FP) PO SCH (22:21)
[2017-01-13] MEDS: LEVOTHYROXINE NA 112 MCG TABLET (FP) PO SCH (06:47)
[2017-01-13] MEDS ORDERED: PT OWN MED DRAWER 7, Y5N ONE ×2 (07:50→09:21)
--- NOTE | 2017-01-13 08:24 | DS ---
Physical Examination Vital Signs: Vital Signs Temperature 98 F 01/13/17 06:00 Pulse Rate 55 L 01/13/17 06:00 Respiratory Rate 18 01/13/17 06:00 Blood Pressure 140/70 01/13/17 06:00 O2 Sat by Pulse Oximetry (%) 98 01/12/17 21:00 Constitutional: Yes: No Distress, Calm Eyes: Yes: Sclera Icterus Cardiovascular: Yes: Pulse Irregular Respiratory: Yes: CTA Bilaterally Gastrointestinal: Yes: Normal Bowel Sounds, Soft Extremities: Yes: Other (left wrist casted) Edema: No Neurological: Yes: Alert, Oriented Labs: CBC, BMP 01/12/17 06:00 01/12/17 06:00 Discharge Summary Reason For Visit: UTI; CLOSED FX RADIUS & ULNA; SYNCOPE Current Active Problems Wrist fracture, left (Acute) Condition: Fair - Instructions Diet, Activity, Other Instructions: Diet and activity as tolerated. Consider left arm attachment for walker Referrals: Alfredo Fan MD [Primary Care Provider] - Shakir Cheney MD [Staff Physician] - Mark Sims MD [Staff Physician] - Stanislav Gonsalves MD [Staff Physician] - Disposition: HOME - Home Medications Comprehensive Discharge Medication List: Ambulatory Orders Acetaminophen [Tylenol] 650 mg PO QID 06/14/16 Apixaban [Eliquis] 2.5 mg PO BID 06/14/16 Atorvastatin Ca [Lipitor] 20 mg PO HS 06/14/16 Levothyroxine [Synthroid -] 112 mcg PO DAILY 06/14/16 Nitroglycerin [Nitrostat] 0.4 mg SL DAILY 06/14/16 Pantoprazole Sodium [Protonix] 40 mg PO DAILY 06/14/16 Duloxetine HCl [Cymbalta -] 20 mg PO BID 01/08/17 Gabapentin [Neurontin -] 300 mg PO BID #60 cap 01/12/17 Lisinopril [Prinivil] 10 mg PO DAILY #30 tablet 01/12/17 Metoprolol Tartrate [Lopressor -] 25 mg PO BID #60 tablet 01/12/17 Oxycodone HCl [Roxicodone -] 5 mg PO Q4H PRN #30 tab MDD 20mg 01/12/17
[2017-01-13] MEDS: DULoxetine HCL 20 MG CAPSULE.DR (FP) PO SCH (09:46)
[2017-01-13] MEDS: APIXABAN 2.5 MG TABLET PO SCH (09:46)
[2017-01-13] MEDS: METOPROLOL TARTRATE 25 MG TABLET (FP) PO SCH (09:46)
[2017-01-13] MEDS: GABAPENTIN 300 MG CAPSULE (FP) PO SCH (09:46)
[2017-01-13] MEDS: LISINOPRIL 10 MG TABLET (FP) PO SCH (09:47)
[2017-01-13] MEDS: PANTOPRAZOLE 40 MG TABLET (FP) PO SCH (09:47)
[2017-01-13 11:29] VITALS: BP 144/59; PULSE 54; TEMP 97.8
== END 2017-01-13 11:43 | disposition home or self-care (01) | DRG 563 ==
LOC: JER 08:15 → JERBED 13:21 → J8W 15:29
PROVIDERS: ADMIT Specialist; ATTEND Nurse Practitioner Acute Care
PROC: 0PSJXZZ Reposition Left Radius, External Approach (ICD-10-PCS; principal; 2017-01-08)
PROC: 0PSLXZZ Reposition Left Ulna, External Approach (ICD-10-PCS; 2017-01-08)
DX: S52.592A Other fractures of lower end of left radius, initial encounter for closed fracture (principal); N39.0 Urinary tract infection, site not specified; S52.692A Other fracture of lower end of left ulna, initial encounter for closed fracture; S00.31XA Abrasion of nose, initial encounter; W06.XXXA Fall from bed, initial encounter; Y93.89 Activity, other specified; Y92.122 Bedroom in nursing home as the place of occurrence of the external cause; Y99.8 Other external cause status; I48.0 Paroxysmal atrial fibrillation; Z86.73 Personal history of transient ischemic attack (TIA), and cerebral infarction without residual deficits; M21.379 Foot drop, unspecified foot; R55 Syncope and collapse; Z91.81 History of falling; M81.0 Age-related osteoporosis without current pathological fracture; I25.10 Atherosclerotic heart disease of native coronary artery without angina pectoris; I34.1 Nonrheumatic mitral (valve) prolapse; I10 Essential (primary) hypertension; E78.00 Pure hypercholesterolemia, unspecified; R63.4 Abnormal weight loss; Z68.23 Body mass index [BMI] 23.0-23.9, adult
CPT/HCPCS: 36415; 70450-TC; 70486-TC; 71010-TC; 73090-TC-LT; 73110-TC-LT; 73130-TC-LT; 80048; 80053; 81003; 81015; 82553; 83735; 84100; 84484; 85025; 87040; 87086; 93005; 93010; 97116-GP; 97162-GP; 99285-25

== ENCOUNTER 2017-06-16 15:43 | Emergency (ER) | payer BC, OTHER ==
--- NOTE | 2017-06-16 15:54 | PDOC ---
History of Present Illness - General History Source: Patient Exam Limitations: No Limitations - History of Present Illness Initial Comments: 06/16/17 16:13 The patient is a 89 year old female, with a significant past medical history of hypertension, hyperlipidemia, hypothyroidism, GERD, CAD, AFib (on Eliquis), CVA, (with minimal left facial involvement) foot drop (uses walker at baseline), multiple falls, fracture of patella(with subsequent MRSA) and osteoporosis who presents to the emergency department with cold-like symptoms for approximately 3 days. The patient reports a sore throat, dry cough, diffuse joint aches, and generalized weakness since the onset of her symptoms. As per daughter, the patients TMax today was 102.2 F. Daughter reports calling patients PCP, Dr. Fan, who recommended the patient come to the ER for further evaluation. Patient denies any associated chest pain, shortness of breath, diaphoresis, or palpitations. She denies any nasal congestion, chills, headache, dizziness, or ear pain. Patient reports she has been eating slightly less, and as per daughter she does not drink many fluids at baseline. Patient denies any abdominal pain, nausea, vomiting, diarrhea, or constipation. She denies any dysuria, hematuria, frequency, or urgency. She denies any recent travel or sick contacts. Patient did not have her flu shot this year. Allergies: Ciprofloxacin, Ciprofloxacin HCl, codeine, Penicillins Past Surgical History: Right patella repair Social History: Patient lives at home. Non smoker. No ETOH or recreational drug use. PCP: Dr. Fan <Lis Robertson - Last Filed: 06/16/17 17:51> <Sebastian Lopez - Last Filed: 06/20/17 07:39> - General Chief Complaint: Respiratory Stated Complaint: FEVER Time Seen by Provider: 06/16/17 15:53 Past History <Lis Robertson - Last Filed: 06/16/17 17:51> - Past Medical History Cardiac Disorders: Yes (CAD, ANGINA,MITRAL VALVE PROPLAPSE) CVA: Yes (2011) GI Disorders: Yes (REFLUX) HTN: Yes Hypercholesterolemia: Yes Thyroid Disease: Yes - Immunization History Immunization Up to Date: Yes - Suicide/Smoking/Psychosocial Hx Smoking Status: Yes Smoking History: Unknown if ever smoked Have you smoked in the past 12 months: No Number of Cigarettes Smoked Daily: 0 Hx Alcohol Use: No Drug/Substance Use Hx: No Substance Use Type: None Hx Substance Use Treatment: No <Sebastian Lopez - Last Filed: 06/20/17 07:39> - Past Medical History Allergies/Adverse Reactions: Allergies Allergy/AdvReac Type Severity Reaction Status Date / Time ciprofloxacin [From Cipro] Allergy Verified 01/08/17 08:25 ciprofloxacin HCl Allergy Verified 01/08/17 08:25 [From Cipro] codeine Allergy Verified 01/08/17 08:25 Penicillins Allergy Verified 01/08/17 08:25 Home Medications: Ambulatory Orders Acetaminophen [Tylenol] 650 mg PO QID 06/14/16 Apixaban [Eliquis] 2.5 mg PO BID 06/14/16 Atorvastatin Ca [Lipitor] 20 mg PO HS 06/14/16 Levothyroxine [Synthroid -] 112 mcg PO DAILY 06/14/16 Nitroglycerin [Nitrostat] 0.4 mg SL DAILY 06/14/16 Pantoprazole Sodium [Protonix] 40 mg PO DAILY 06/14/16 Duloxetine HCl [Cymbalta -] 20 mg PO BID 01/08/17 Lisinopril [Prinivil] 10 mg PO DAILY #30 tablet 01/12/17 Metoprolol Tartrate [Lopressor -] 25 mg PO BID #60 tablet 01/12/17 Ascorbic Acid [Vitamin C] 500 mg PO DAILY 06/16/17 Cholecalciferol (Vitamin D3) [Vitamin D3] 1,000 unit PO DAILY 06/16/17 Multivit-Min/Iron/Folic/Lutein [Centrum Silver Women Tablet] 1 each PO DAILY 02/21 Oseltamivir Phosphate [Tamiflu] 75 mg PO BID #10 capsule 06/16/17 Vitamin B Complex [B Complex] 1 each PO DAILY 06/16/17 Review of Systems - Review of Systems Able to Perform ROS?: Yes Comments:: 06/16/17 16:14 CONSTITUTIONAL: Present: fever, generalized weakness Absent: no chills, no fatigue EYES: Absent: visual changes ENT: Present: sore throat Absent: ear pain, nasal congestion. CARDIOVASCULAR: Absent: chest pain, no palpitations RESPIRATORY: Present: cough Absent: no SOB GI: Absent: abdominal pain, no nausea, no vomiting, no constipation, no diarrhea GENITOURINARY: Absent: dysuria, no frequency, no hematuria MUSKULOSKELETAL: Present: diffuse joint aches Absent: back pain, no myalgia SKIN: Absent: rash NEURO: Absent: headache <Lis Robertson - Last Filed: 06/16/17 17:51> *Physical Exam - Vital Signs Last Vital Signs Temp Pulse Resp BP Pulse Ox 96.4 F L 60 18 133/78 97 06/16/17 15:44 06/16/17 15:44 06/16/17 15:44 06/16/17 15:44 06/16/17 15:44 - Physical Exam Comments: 06/16/17 16:14 GENERAL: Well developed, well nourished. Awake and alert. Afebrile presently, but fever 102F earlier today as per daughter. Fatigued. With generalized weakness. Chronic cough, but no tachypnea or dyspnea HEENT: Normocephalic, atraumatic. PERRLA, EOMI. No conjunctival pallor. Sclera are non- icteric. Dry mucous membranes. Throat mildly injected without exudate or mass. NECK: Supple. Full ROM. No JVD. Carotid pulses 2+ and symmetric, without bruits. No thyromegaly. No lymphadenopathy. No edema. CARDIOVASCULAR: Irregularly irregular. 68 bpm. No murmurs, rubs, or gallops. Distal pulses are 2+ and symmetric. PULMONARY: Mildly decreased breath sounds bilaterally, but no wheezes, rales, or ronchi. ABDOMINAL: Soft. Non-tender. Non-distended. No rebound or guarding. No organomegaly. Normoactive bowel sounds. MUSCULOSKELETAL Normal range of motion at all joints. No bony deformities or tenderness. No CVA tenderness. EXTREMITIES: No cyanosis. No clubbing. No edema. No calf tenderness. SKIN: Warm and dry. Normal capillary refill. No rashes. No jaundice. Adequate turgor. NEUROLOGICAL: Alert, awake, appropriate. Cranial nerves 2-12 intact. <Lis Robertson - Last Filed: 06/16/17 17:51> ED Treatment Course - LABORATORY CBC & Chemistry Diagram: 06/16/17 16:35 06/16/17 16:35 <Lis Robertson - Last Filed: 06/16/17 17:51> - LABORATORY CBC & Chemistry Diagram: 06/16/17 16:35 06/16/17 16:35 <Sebastian Lopez - Last Filed: 06/20/17 07:39> Medical Decision Making - Medical Decision Making 06/16/17 16:10 Patient with a fever of 102 earlier today, flulike symptoms including sore throat, nonproductive cough, body aches, generalized weakness. History of atrial fibrillation, high blood pressure, hyperlipidemia, hypothyroid, fractured patella with subsequent MRSA, and minor CVA with only minimal right facial involvement. Throat is clear, lungs are clear to auscultation, abdomen soft nontender. Further workup pending Chest x-ray is clear. Minimal congestion. No infiltrates suggestive of pneumonia EKG shows no sign of acute cardiac event CBC and chemistries without significant abnormalities, including normal white blood count. Patient much improved. No afebrile. Much more comfortable. Breathing without difficulty. Respiratory rate 18 and unlabored. Oxygen saturation 97% on room air. Discharged fully ambulatory and without respiratory or other distress, with Tamiflu, and close follow-up if symptoms worsen. <Sebastian Lopez - Last Filed: 06/20/17 07:39> *DC/Admit/Observation/Transfer - Attestations Scribe Attestion: 06/16/17 16:14 Documentation prepared by Lis Robertson, acting as senior medical technologist for Sebastian Brantley MD. <Lis Robertson - Last Filed: 06/16/17 17:51> - Discharge Dispostion Admit: No <Sebastian Lopez - Last Filed: 06/20/17 07:39> Diagnosis at time of Disposition: Viral upper respiratory tract infection with cough - Discharge Dispostion Disposition: HOME Condition at time of disposition: Improved - Prescriptions Prescriptions: Oseltamivir Phosphate [Tamiflu] 75 mg PO BID #10 capsule - Referrals Referrals: Alfredo Fan MD [Primary Care Provider] - 2 Days - Patient Instructions Printed Discharge Instructions: DI for Viral Upper Respiratory Infection -- Adult Additional Instructions: Prescription medication as directed. Tylenol for fever. If fever persists 24 hours, or there is increased shortness of breath, other difficulty breathing, chest pain, abdominal pain, or nausea, vomiting, or diarrhea, return immediately to the emergency room. Otherwise see primary physician 24-48 hours for recheck. - Post Discharge Activity
[2017-06-16] MEDS ORDERED: SODIUM CHLORIDE 250 ML IV STA (16:09)
[2017-06-16 16:10] VITALS: BMI 23.0
[2017-06-16 17:08] LABS: EOS % 0.2 % (0-4.5); HEMATOCRIT 40.5 % (32.4-45.2); HEMOGLOBIN 14.1 GM/dl (10.7-15.3); LYMPH % 10.6 % (8-40); MCH 31.4 pg (25.7-33.7); MCHC 34.7 g/dl (32.0-36.0); MEAN CELL VOLUME 90.4 fl (80-96); MEAN PLT VOLUME 8.6 fl (7.5-11.1); MONO % 12.3 % (3.8-10.2); NEUT % 75.9 % (42.8-82.8); PLATELET COUNT 161 K/MM3 (134-434); RBC 4.48 M/mm3 (3.60-5.2); RDW 13.7 % (11.6-15.6)
[2017-06-16 17:19] LABS: ALBUMIN 3.5 g/dl (3.5-5.0); ALK PHOS 43 U/L (32-92); ANION GAP 8 (8-16); BILIRUBIN,TOTAL 0.7 mg/dl (0.2-1.0); BLOOD UREA NITROGEN 15 mg/dl (7-18); CALCIUM 8.9 mg/dl (8.4-10.2); CHLORIDE 100 mmol/L (98-107); CO2 26 mmol/L (22-28); CREATININE 0.7 mg/dl (0.6-1.3); GLUCOSE,RANDOM 113 mg/dl (74-106); SGOT/AST 27 U/L (10-42); SGPT/ALT 24 U/L (10-40); SODIUM 134 mmol/L (136-145); TOT PROT 6.5 g/dl (6.4-8.3)
[2017-06-16 18:05] LABS: URINE APPEARANCE Clear; URINE BILIRUBIN Negative (NEGATIVE); URINE BLOOD 3+ (NEGATIVE); URINE COLOR YELLOW; URINE GLUCOSE (UA) Negative (NEGATIVE); URINE KETONE Negative (NEGATIVE); URINE LEUK ESTERASE Negative (NEGATIVE); URINE NITRITE Negative (NEGATIVE); URINE PROTEIN 1+ (NEGATIVE); URINE UROBILINOGEN 0.2 (0.2-1.0)
[2017-06-16 18:33] LABS: URINE RBC >100 /hpf (0-3)
[2017-06-16] MEDS ORDERED: OSELTAMIVIR PHOSPHATE 75 MG CAPSULE PO ONE (18:45)
[2017-06-16 18:48] VITALS: BP 115/60; PULSE 68; TEMP 98.8
[2017-06-16] MEDS ORDERED: OSELTAMIVIR PHOSPHATE 75 MG CAPSULE ONE (18:53)
--- NOTE | 2017-06-20 13:13 | EKG ---
Test Reason : Blood Pressure : / mmHG Vent. Rate : 074 BPM Atrial Rate : 074 BPM P-R Int : 164 ms QRS Dur : 070 ms QT Int : 422 ms P-R-T Axes : 054 -10 -14 degrees QTc Int : 468 ms NORMAL SINUS RHYTHM WITH SINUS ARRHYTHMIA NONSPECIFIC ST AND T WAVE ABNORMALITY ABNORMAL ECG WHEN COMPARED WITH ECG OF 08-JAN-2017 08:55, NONSPECIFIC T WAVE ABNORMALITY, IMPROVED IN LATERAL LEADS Confirmed by RASHIDA WARREN MD ([id number]) on 06/20/2017 1:12:53 PM Referred By: JASON Confirmed By:RASHIDA WARREN MD
== END 2017-06-16 19:10 | disposition home or self-care (01) ==
LOC: FER 15:43
PROC: 3E0337Z Introduction of Electrolytic and Water Balance Substance into Peripheral Vein, Percutaneous Approach (ICD-10-PCS; principal; 2017-06-16)
DX: J06.9 Acute upper respiratory infection, unspecified (principal); B97.89 Other viral agents as the cause of diseases classified elsewhere; R05 Cough
CPT/HCPCS: 36415; 71046-TC-FY; 80053; 81003; 81015; 82550; 84484; 85025; 87040; 87077; 87086; 93005; 99283-25

== ENCOUNTER 2017-06-28 21:30 | Inpatient (IN) | payer OTHER ==
--- NOTE | 2017-06-28 21:36 | PDOC ---
History of Present Illness - General Chief Complaint: Respiratory Stated Complaint: COUGH/FEVER Time Seen by Provider: 06/28/17 21:35 - History of Present Illness Initial Comments: 06/29/17 01:13 The patient is an 89 year old female with past medical history of hypertension, hyperlipidemia, hypothyroidism, Afib (on Eliquis) and stroke who presents to the ED with complaints of worsening cough for the past week. Patient was diagnosed with Flu 2 weeks ago and was given Tamiflu. She states her flu symptoms have improved but her productive cough persisted. Pt's family reports that she has also been weak today, having difficulty standing which is abnormal for her. Patient reports a normal appetite and drinking lots of fluids. In the ED, patient was noted to be febrile. She denies any chills, body aches, runny nose, congestion, shortness of breath, chest pain, or urinary symptoms. Past History - Past Medical History Allergies/Adverse Reactions: Allergies Allergy/AdvReac Type Severity Reaction Status Date / Time ciprofloxacin [From Cipro] Allergy Verified 01/08/17 08:25 ciprofloxacin HCl Allergy Verified 01/08/17 08:25 [From Cipro] codeine Allergy Verified 01/08/17 08:25 Penicillins Allergy Verified 01/08/17 08:25 Home Medications: Ambulatory Orders Acetaminophen [Tylenol] 650 mg PO QID 06/14/16 Apixaban [Eliquis] 2.5 mg PO BID 06/14/16 Atorvastatin Ca [Lipitor] 20 mg PO HS 06/14/16 Levothyroxine [Synthroid -] 112 mcg PO DAILY 06/14/16 Nitroglycerin [Nitrostat] 0.4 mg SL DAILY 06/14/16 Pantoprazole Sodium [Protonix] 40 mg PO DAILY 06/14/16 Duloxetine HCl [Cymbalta -] 20 mg PO BID 01/08/17 Lisinopril [Prinivil] 10 mg PO DAILY #30 tablet 01/12/17 Metoprolol Tartrate [Lopressor -] 25 mg PO BID #60 tablet 01/12/17 Ascorbic Acid [Vitamin C] 500 mg PO DAILY 06/16/17 Cholecalciferol (Vitamin D3) [Vitamin D3] 1,000 unit PO DAILY 06/16/17 Multivit-Min/Iron/Folic/Lutein [Centrum Silver Women Tablet] 1 each PO DAILY 02/21 Oseltamivir Phosphate [Tamiflu] 75 mg PO BID #10 capsule 06/16/17 Vitamin B Complex [B Complex] 1 each PO DAILY 06/16/17 Cardiac Disorders: Yes (CAD, ANGINA,MITRAL VALVE PROPLAPSE) CVA: Yes (2011) COPD: No GI Disorders: Yes (REFLUX) HTN: Yes Hypercholesterolemia: Yes Thyroid Disease: Yes - Immunization History Immunization Up to Date: Yes - Suicide/Smoking/Psychosocial Hx Smoking Status: Yes Smoking History: Unknown if ever smoked Have you smoked in the past 12 months: No Number of Cigarettes Smoked Daily: 0 Hx Alcohol Use: No Drug/Substance Use Hx: No Substance Use Type: None Hx Substance Use Treatment: No Review of Systems - Review of Systems Comments:: 06/29/17 01:13 GENERAL/CONSTITUTIONAL: Present: weakness No fever or chills. HEAD, EYES, EARS, NOSE AND THROAT: No change in vision. No ear pain or discharge. No sore throat. GASTROINTESTINAL: No nausea, vomiting, diarrhea or constipation. GENITOURINARY: No dysuria, frequency, or change in urination. CARDIOVASCULAR: No chest pain or shortness of breath. RESPIRATORY: Present: productive cough No wheezing, or hemoptysis. MUSCULOSKELETAL: No joint or muscle swelling or pain. No neck or back pain. SKIN: No rash NEUROLOGIC: No headache, vertigo, loss of consciousness, or change in strength/ sensation. ENDOCRINE: No increased thirst. No abnormal weight change. HEMATOLOGIC/LYMPHATIC: No anemia, easy bleeding, or history of blood clots. ALLERGIC/IMMUNOLOGIC: No hives or skin allergy. *Physical Exam - Physical Exam Comments: 06/29/17 01:13 GENERAL: Awake, alert, and fully oriented, in no acute distress HEAD: No signs of trauma EYES: PERRLA, EOMI, sclera anicteric, conjunctiva clear ENT: Auricles normal inspection, hearing grossly normal, nares patent, oropharynx clear without exudates. Moist mucosa NECK: Normal ROM, supple, no lymphadenopathy, JVD, or masses LUNGS: Diminished breath sounds bilaterally. Crackles at right base. No wheezes HEART: Regular rate and rhythm, normal S1 and S2, no murmurs, rubs or gallops ABDOMEN: Soft, nontender, normoactive bowel sounds. No guarding, no rebound. No masses EXTREMITIES: Normal range of motion, no edema. No clubbing or cyanosis. No cords, erythema, or tenderness BACK: No midline spinal tenderness in cervical/thoracic/lumbar region NEUROLOGICAL: Normal speech, cranial nerves intact, negative pronator drift, 5/ 5 strength in all 4 extremities, normal sensation to light touch in all 4 extremities, normal cerebellar exam, normal gait, normal reflexes and tone SKIN: Warm, Dry, normal turgor, no rashes or lesions noted. Heart Score/ECG Review #1 06/29/17 01:14 Twelve-lead EKG was performed and reviewed by me. Normal sinus rhythm, rate 71. Normal axis. No ST elevations. <1mm to [address] depressions in leads I, II, V2- V6. No significant change compared to EKG from 06/16/17 ED Treatment Course - LABORATORY CBC & Chemistry Diagram: 06/28/17 22:45 06/28/17 22:45 Medical Decision Making - Medical Decision Making 06/28/17 23:56 89-year-old female with multiple medical problems presents emergency Department with fever and 2 weeks of progressive cough that has recently become productive. Patient diagnosed with the flu 2 weeks ago. Vitals remarkable for fever to 101.3. Exam with crackles at the right lung base. Likely post- influenza pneumonia. Patient has not been admitted for 5 months, will treat as a community-acquired pneumonia and admit. 06/29/17 00:44 Patient covered with Vanc, blood cultures and lactate pending. Case discussed with Dr. Rousseau. Patient to be admitted to inpatient Med/Surg. Case discussed in detail with admitting physician including history, physical exam and ancillary studies. Admitting physician has assumed care for the patient, will follow all pending diagnostics and will complete the evaluation and treatment. *DC/Admit/Observation/Transfer Diagnosis at time of Disposition: Pneumonia - Discharge Dispostion Condition at time of disposition: Stable Admit: Yes - Referrals - Patient Instructions - Post Discharge Activity - Attestations Scribe Attestion: I Physician Attestion: 06/29/17 00:46 I, Dr. Brandt Webster MD, attest that this document has been prepared under my direction and personally reviewed by me in its entirety. I further attest, that it accurately reflects all work, treatment, procedures and medical decision -making performed by me.
[2017-06-28] MEDS ORDERED: ACETAMINOPHEN 325 MG TABLET (FP) ONE (21:53)
[2017-06-28 21:58] VITALS: BMI 23.0
[2017-06-28 22:45] LABS: PH,URINE 5.5 (4.5-8); URINE APPEARANCE Clear; URINE BILIRUBIN Negative (NEGATIVE); URINE GLUCOSE (UA) Negative (NEGATIVE); URINE KETONE Negative (NEGATIVE); URINE NITRITE Negative (NEGATIVE)
[2017-06-28 22:46] LABS: URINE BLOOD 2+ (NEGATIVE); URINE COLOR YELLOW; URINE LEUK ESTERASE TRACE (NEGATIVE); URINE PROTEIN 1+ (NEGATIVE)
[2017-06-28 22:54] LABS: EPI CELLS FEW /HPF; URINE BACTERIA FEW /hpf (NEGATIVE); URINE RBC 20-30 /hpf (0-3)
[2017-06-28 22:58] LABS: BASO % 0.5 % (0-2.0); EOS % 0.2 % (0-4.5); HEMATOCRIT 39.3 % (32.4-45.2); HEMOGLOBIN 13.7 GM/dl (10.7-15.3); MCH 31.3 pg (25.7-33.7); MCHC 34.8 g/dl (32.0-36.0); MEAN CELL VOLUME 89.9 fl (80-96); MEAN PLT VOLUME 7.9 fl (7.5-11.1); MONO % 6.3 % (3.8-10.2); PLATELET COUNT 247 K/MM3 (134-434); RBC 4.37 M/mm3 (3.60-5.2); RDW 13.7 % (11.6-15.6); WHITE BLOOD COUNT 15.6 K/mm3 (4.0-10.8)
[2017-06-28 23:05] LABS: ALK PHOS 43 U/L (32-92); ANION GAP 5 (8-16); BILIRUBIN,TOTAL 0.9 mg/dl (0.2-1.0); CALCIUM 8.3 mg/dl (8.4-10.2); CHLORIDE 102 mmol/L (98-107); CO2 23 mmol/L (22-28); GLUCOSE,RANDOM 171 mg/dl (74-106); POTASSIUM 3.4 mmol/L (3.5-5.1); SGOT/AST 18 U/L (10-42); SGPT/ALT 17 U/L (10-40); SODIUM 130 mmol/L (136-145); TOT PROT 6.3 g/dl (6.4-8.3)
[2017-06-28 23:12] LABS: ALBUMIN 3.3 g/dl (3.5-5.0); BLOOD UREA NITROGEN 16 mg/dl (7-18); CREATININE 0.7 mg/dl (0.6-1.3)
[2017-06-29] MEDS ORDERED: VANCOMYCIN 1,000 MG in DEXTROSE 5%-WATER - 250 ML IVPB ONE (00:02)
[2017-06-29] MEDS ORDERED: SODIUM CHLORIDE 1,000 ML IV STA (00:02)
[2017-06-29] MEDS ORDERED: VANCOMYCIN 1,000 MG VIAL (RESTRICTED TO ID ONLY) ONE (00:10)
[2017-06-29] MEDS ORDERED: ACETAMINOPHEN 325 MG TABLET (FP) PO ONE (00:47)
[2017-06-29] MEDS ORDERED: ACETAMINOPHEN 325 MG TABLET (FP) PO PRN (00:59)
[2017-06-29] MEDS ORDERED: ERTAPENEM SODIUM 1 GM VIAL ONE (01:14)
[2017-06-29] MEDS ORDERED: ERTAPENEM SODIUM 1 GM in SODIUM CHLORIDE 50 ML IVPB SCH (01:15)
--- NOTE | 2017-06-29 06:55 | HP ---
CHIEF COMPLAINT: cough PCP: Dr Fan HISTORY OF PRESENT ILLNESS: Patient is a 89 y/o female with a past medical history of afib (eliquis), hypertension, hyperlipidemia, hypothyroidism, and cva. In addition, two weeks ago she was diagnosed with influenza and completed 5 day of tamiflu. Patient reports ongoing worsening cough within the past week with ongoing weakness. Within the past 24 hours, she developed worsening of malaise and as a result sought evaluation in the emergency department. ER course was notable for: (1) wbc 15.6 (2) lactic acid 2.1 (3) chest xray: no evidence of acute pulmonary disease Recent Travel: none PAST MEDICAL HISTORY: see hpi PAST SURGICAL HISTORY: none Social History: resides at home with family Smoking: none Alcohol:none Drugs: none Family History: non contributory to this admission Allergies ciprofloxacin [From Cipro] Allergy (Verified 01/08/17 08:25) ciprofloxacin HCl [From Cipro] Allergy (Verified 01/08/17 08:25) codeine Allergy (Verified 01/08/17 08:25) Penicillins Allergy (Verified 01/08/17 08:25) HOME MEDICATIONS: Home Medications Medication Instructions Recorded Acetaminophen [Tylenol] 650 mg PO QID 06/14/16 Apixaban [Eliquis] 2.5 mg PO BID 06/14/16 Atorvastatin Ca [Lipitor] 20 mg PO HS 06/14/16 Levothyroxine [Synthroid -] 112 mcg PO DAILY 06/14/16 Nitroglycerin [Nitrostat] 0.4 mg SL DAILY 06/14/16 Pantoprazole Sodium [Protonix] 40 mg PO DAILY 06/14/16 Duloxetine HCl [Cymbalta -] 20 mg PO BID 01/08/17 Lisinopril [Prinivil] 10 mg PO DAILY #30 tablet 01/12/17 Metoprolol Tartrate [Lopressor -] 25 mg PO BID #60 tablet 01/12/17 Ascorbic Acid [Vitamin C] 500 mg PO DAILY 06/16/17 Cholecalciferol (Vitamin D3) 1,000 unit PO DAILY 06/16/17 [Vitamin D3] Multivit-Min/Iron/Folic/Lutein 1 each PO DAILY 06/16/17 [Centrum Silver Women Tablet] Vitamin B Complex [B Complex] 1 each PO DAILY 06/16/17 REVIEW OF SYSTEMS CONSTITUTIONAL: Present: generalized weakness, malaise Absent: fever, chills, diaphoresis, loss of appetite, weight change HEENT: Absent: rhinorrhea, nasal congestion, throat pain, throat swelling, difficulty swallowing, mouth swelling, ear pain, eye pain, visual changes CARDIOVASCULAR: Absent: chest pain, syncope, palpitations, irregular heart rate, lightheadedness , peripheral edema RESPIRATORY: Absent: cough, shortness of breath, dyspnea with exertion, orthopnea, wheezing, stridor, hemoptysis GASTROINTESTINAL: Absent: abdominal pain, abdominal distension, nausea, vomiting, diarrhea, constipation, melena, hematochezia GENITOURINARY: Absent: dysuria, frequency, urgency, hesitancy, hematuria, flank pain, genital pain MUSCULOSKELETAL: Absent: myalgia, arthralgia, joint swelling, back pain, neck pain SKIN: Absent: rash, itching, pallor HEMATOLOGIC/IMMUNOLOGIC: Absent: easy bleeding, easy bruising, lymphadenopathy, frequent infections ENDOCRINE: Absent: unexplained weight gain, unexplained weight loss, heat intolerance, cold intolerance NEUROLOGIC: Absent: headache, focal weakness or paresthesias, dizziness, unsteady gait, seizure, mental status changes, bladder or bowel incontinence PSYCHIATRIC: Absent: anxiety, depression, suicidal or homicidal ideation, hallucinations. PHYSICAL EXAMINATION Vital Signs - 24 hr 06/28/17 06/29/17 06/29/17 21:35 00:04 00:47 Temperature 101.4 F H 99.4 F 98.4 F Pulse Rate 83 63 Pulse Rate [ 66 Right] Respiratory 18 19 Rate Blood Pressure 134/76 93/44 Blood Pressure 114/67 [Left Arm] O2 Sat by Pulse 96 96 96 Oximetry (%) 06/29/17 06/29/17 02:51 05:31 Temperature 98.4 F Pulse Rate 63 Pulse Rate [ Right] Respiratory 19 19 Rate Blood Pressure 93/44 Blood Pressure [Left Arm] O2 Sat by Pulse 96 Oximetry (%) GENERAL: Awake, alert, and fully oriented, in no acute distress. HEAD: Normal with no signs of trauma. EYES: Pupils equal, round and reactive to light, extraocular movements intact, sclera anicteric, conjunctiva clear. No lid lag. EARS, NOSE, THROAT: Ears normal, nares patent, oropharynx clear without exudates. Moist mucous membranes. NECK: Normal range of motion, supple without lymphadenopathy, JVD, or masses. LUNGS: Breath sounds equal, crackles to left base, clear to left apex, clear to right apex and diminished to right base. No wheezes, and no crackles. No accessory muscle use. HEART: Regular rate and rhythm, normal S1 and S2 without murmur, rub or gallop. ABDOMEN: Soft, nontender, not distended, normoactive bowel sounds, no guarding, no rebound, no masses. No hepatomegaly or splenomegaly. MUSCULOSKELETAL: Normal range of motion at all joints. No bony deformities or tenderness. No CVA tenderness. UPPER EXTREMITIES: 2+ pulses, warm, well-perfused. No cyanosis. No clubbing. No peripheral edema. LOWER EXTREMITIES: 2+ pulses, warm, well-perfused. No calf tenderness. No peripheral edema. NEUROLOGICAL: Cranial nerves II-XII intact. Normal speech. Normal gait. PSYCHIATRIC: Cooperative. Good eye contact. Appropriate mood and affect. SKIN: Warm, dry, normal turgor, no rashes or lesions noted, normal capillary refill. Laboratory Results - last 24 hr 06/28/17 06/28/17 06/28/17 22:25 22:45 22:45 WBC 15.6 H D RBC 4.37 Hgb 13.7 Hct 39.3 MCV 89.9 MCH 31.3 MCHC 34.8 RDW 13.7 Plt Count 247 MPV 7.9 Neutrophils % 87.0 H Lymphocytes % 6.0 L Monocytes % 6.3 Eosinophils % 0.2 Basophils % 0.5 Sodium 130 L Potassium 3.4 L Chloride 102 Carbon Dioxide 23 Anion Gap 5 L BUN 16 Creatinine 0.7 Creat Clearance w eGFR > 60 Random Glucose 171 H D Lactic Acid Calcium 8.3 L Total Bilirubin 0.9 D AST 18 D ALT 17 D Alkaline Phosphatase 43 Troponin I Total Protein 6.3 L Albumin 3.3 L Urine Color Yellow Urine Appearance Clear Urine pH 5.5 Ur Specific [place] 1.020 Urine Protein 1+ H Urine Glucose (UA) Negative Urine Ketones Negative Urine Blood 2+ H Urine Nitrite Negative Urine Bilirubin Negative Urine Urobilinogen 1.0 Ur Leukocyte Esterase Trace H Urine RBC 20-30 Urine WBC 2-5 Ur Epithelial Cells Few Urine Bacteria Few 06/28/17 06/29/17 22:45 00:05 WBC RBC Hgb Hct MCV MCH MCHC RDW Plt Count MPV Neutrophils % Lymphocytes % Monocytes % Eosinophils % Basophils % Sodium Potassium Chloride Carbon Dioxide Anion Gap BUN Creatinine Creat Clearance w eGFR Random Glucose Lactic Acid 2.1 H Calcium Total Bilirubin AST ALT Alkaline Phosphatase Troponin I < 0.03 Total Protein Albumin Urine Color Urine Appearance Urine pH Ur Specific [place] Urine Protein Urine Glucose (UA) Urine Ketones Urine Blood Urine Nitrite Urine Bilirubin Urine Urobilinogen Ur Leukocyte Esterase Urine RBC Urine WBC Ur Epithelial Cells Urine Bacteria ASSESSMENT/PLAN: f/e/n - low sodium diet - replete lytes prn ppx - xarelto - protonix dispo: patient requires inpatient admission Problem List - Problem (1) Pneumonia Assessment/Plan: - crackles noted to right base, ct of chest notable for left lower lobe consolidation/pna, continue invanz - urine antigens ordered - keep spo2 above 92% with supplemental O2 PRN Code(s): J18.9 - PNEUMONIA, UNSPECIFIED ORGANISM (2) Atrial fibrillation Assessment/Plan: - paroxysmal afib, ekg reviewed, NSR nonspecific st wave abnormality noted unchanged from prior, strict monitoring - continue lopressor and xarelto Code(s): I48.91 - UNSPECIFIED ATRIAL FIBRILLATION Qualifiers: Atrial fibrillation type: paroxysmal Qualified Code(s): I48.0 - Paroxysmal atrial fibrillation (3) GERD (gastroesophageal reflux disease) Assessment/Plan: - continue protonix daily Code(s): K21.9 - GASTRO-ESOPHAGEAL REFLUX DISEASE WITHOUT ESOPHAGITIS Qualifiers: Esophagitis presence: without esophagitis Qualified Code(s): K21.9 - Gastro -esophageal reflux disease without esophagitis (4) Hypercholesteremia Assessment/Plan: - continue lipitor, lft's wnl Code(s): E78.0 - PURE HYPERCHOLESTEROLEMIA * DO NOT USE * (5) Hypothyroid Assessment/Plan: - continue home dose levothyroxine - pending tsh, t4 Code(s): E03.9 - HYPOTHYROIDISM, UNSPECIFIED Qualifiers: Hypothyroidism type: unspecified Qualified Code(s): E03.9 - Hypothyroidism , unspecified (6) Diastolic congestive heart failure Assessment/Plan: - pt appears euvolemic on exam, echo 2016, lv wnl, pending echo - strict i/o and daily weight Code(s): I50.30 - UNSPECIFIED DIASTOLIC (CONGESTIVE) HEART FAILURE Qualifiers: Heart failure chronicity: chronic Qualified Code(s): I50.32 - Chronic diastolic (congestive) heart failure (7) Sepsis Assessment/Plan: - temp 101.4 upon arrival, monitor fever curve and wbc - pending blood and urine cultures - continue invanz - appreciate ID consult Code(s): A41.9 - SEPSIS, UNSPECIFIED ORGANISM Visit type - Emergency Visit Emergency Visit: Yes ED Registration Date: 06/29/17 Care time: The patient presented to the Emergency Department on the above date and was hospitalized for further evaluation of their emergent condition. - New Patient This patient is new to me today: Yes Date on this admission: 06/30/17 - Critical Care Critical Care patient: No Hospitalist Screening - Colonoscopy Questionnaire Colonoscopy Questionnaire: Colonoscopy Questionnaire - Patient: 50 - 75 years old and never had a screening colonoscopy: No History of colon or rectal polyps, or CA: No History of IBD, Crohn's disease or UC: No History of abdominal radiation therapy as a child: No - Relative: 1 with colon or rectal CA, or polyps at age 60 or younger: Unknown Colon or rectal CA diagnosed at age 45 or younger: Unknown Multiple relatives with colon or rectal CA: Unknown - Outcome: Screening Result: Negative Screen
[2017-06-29] MEDS ORDERED: D5-NS + 20 MEQ KCL - 20 MEQ/1,000 ML INFUS.BAG IV SCH (07:30)
[2017-06-29] MEDS ORDERED: POTASSIUM CHLORIDE TABS 20 MEQ TABLET.ER (FP) PO ONE (08:00)
--- NOTE | 2017-06-29 09:46 | EKG ---
Test Reason : Blood Pressure : / mmHG Vent. Rate : 071 BPM Atrial Rate : 071 BPM P-R Int : 168 ms QRS Dur : 076 ms QT Int : 442 ms P-R-T Axes : 054 001 034 degrees QTc Int : 480 ms NORMAL SINUS RHYTHM NONSPECIFIC ST AND T WAVE ABNORMALITY ABNORMAL ECG WHEN COMPARED WITH ECG OF 16-JUN-2017 16:47, NONSPECIFIC T WAVE ABNORMALITY, WORSE IN LATERAL LEADS Confirmed by JAYDEN AUGUSTE, JAZMYN ([id number]) on 06/29/2017 9:45:36 AM Referred By: KIERA Confirmed By:JAZMYN CARPENTER MD
[2017-06-29 10:28] LABS: EOS % 0.4 % (0-4.5); HEMATOCRIT 38.3 % (32.4-45.2); HEMOGLOBIN 13.3 GM/dl (10.7-15.3); LYMPH % 8.7 % (8-40); MCH 31.3 pg (25.7-33.7); MCHC 34.6 g/dl (32.0-36.0); MEAN CELL VOLUME 90.4 fl (80-96); MEAN PLT VOLUME 8.5 fl (7.5-11.1); MONO % 8.4 % (3.8-10.2); NEUT % 82.5 % (42.8-82.8); PLATELET COUNT 263 K/MM3 (134-434); RBC 4.24 M/mm3 (3.60-5.2); WHITE BLOOD COUNT 14.7 K/mm3 (4.0-10.8)
[2017-06-29] MEDS ORDERED: PT OWN MED DRAWER 7, Y5N ONE ×3 (10:35→21:09)
[2017-06-29 10:36] LABS: ANION GAP 6 (8-16); BLOOD UREA NITROGEN 11 mg/dl (7-18); CALCIUM 8.5 mg/dl (8.4-10.2); CHLORIDE 105 mmol/L (98-107); CO2 26 mmol/L (22-28); CREATININE 0.6 mg/dl (0.6-1.3); GLUCOSE,RANDOM 97 mg/dl (74-106); POTASSIUM 3.6 mmol/L (3.5-5.1); SODIUM 137 mmol/L (136-145)
[2017-06-29] MEDS: ASCORBIC ACID 500 MG TABLET (FP) PO SCH (10:41)
[2017-06-29] MEDS: MULTIVITAMINS THER W-MINERALS COMBO TABLET (FP) PO SCH (10:41)
[2017-06-29] MEDS: METOPROLOL TARTRATE 25 MG TABLET (FP) PO SCH ×2 (10:41→21:23)
[2017-06-29] MEDS: DULoxetine HCL 20 MG CAPSULE.DR (FP) PO SCH ×2 (10:41→21:23)
[2017-06-29] MEDS: APIXABAN 2.5 MG TABLET PO SCH ×2 (10:42→21:23)
[2017-06-29] MEDS: PANTOPRAZOLE 40 MG TABLET (FP) PO SCH (10:42)
[2017-06-29] MEDS: VITAMIN B COMPLEX W/C COMBO TABLET (FP) PO SCH (10:42)
[2017-06-29] MEDS: CHOLECALCIFEROL (VITAMIN D3) 1,000 UNIT TABLET (FP) PO SCH (10:43)
[2017-06-29] MEDS: LEVOTHYROXINE NA 112 MCG TABLET (FP) PO SCH (10:47)
[2017-06-29] MEDS: LISINOPRIL 10 MG TABLET (FP) PO SCH (10:52)
[2017-06-29] MEDS ORDERED: MAGNESIUM SULFATE IN WATER 2 GM/50 ML IVPB IVPB ONE (11:30)
[2017-06-29] MEDS: ALBUTEROL SO4 2.5/IPRATROPIUM 0.5 INH SOL 3 ML VIAL.NEB. NEB SCH ×3 (13:00→21:23)
--- NOTE | 2017-06-29 15:10 | CON.ID ---
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: Yes: CVA Cardio/Vascular: Yes: HTN, Hyperlipdemia Gastrointestinal: Yes: GERD Renal/: Yes: UTI - Past Surgical History Past Surgical History: Yes: Hysterectomy, Joint Replacement - Alcohol/Substance Use Hx Alcohol Use: No History of Substance Use: reports: None - Smoking History Smoking history: Unknown if ever smoked Have you smoked in the past 12 months: No Aproximately how many cigarettes per day: 0 - Social History ADL: Independent History of Recent Travel: No Home Medications - Allergies Allergies/Adverse Reactions: Allergies Allergy/AdvReac Type Severity Reaction Status Date / Time ciprofloxacin [From Cipro] Allergy Verified 01/08/17 08:25 ciprofloxacin HCl Allergy Verified 01/08/17 08:25 [From Cipro] codeine Allergy Verified 01/08/17 08:25 Penicillins Allergy Verified 01/08/17 08:25 - Home Medications Home Medications: Ambulatory Orders Acetaminophen [Tylenol] 650 mg PO QID 06/14/16 Apixaban [Eliquis] 2.5 mg PO BID 06/14/16 Atorvastatin Ca [Lipitor] 20 mg PO HS 06/14/16 Levothyroxine [Synthroid -] 112 mcg PO DAILY 06/14/16 Nitroglycerin [Nitrostat] 0.4 mg SL DAILY 06/14/16 Pantoprazole Sodium [Protonix] 40 mg PO DAILY 06/14/16 Duloxetine HCl [Cymbalta -] 20 mg PO BID 01/08/17 Lisinopril [Prinivil] 10 mg PO DAILY #30 tablet 01/12/17 Metoprolol Tartrate [Lopressor -] 25 mg PO BID #60 tablet 01/12/17 Ascorbic Acid [Vitamin C] 500 mg PO DAILY 06/16/17 Cholecalciferol (Vitamin D3) [Vitamin D3] 1,000 unit PO DAILY 06/16/17 Multivit-Min/Iron/Folic/Lutein [Centrum Silver Women Tablet] 1 each PO DAILY 02/21 Vitamin B Complex [B Complex] 1 each PO DAILY 06/16/17 Family Disease History - Family Disease History Family Disease History: Other: Father (Parkinsons), Mother (cirrhosis), Brother (bladder cancer) Physical Exam Vital Signs: Vital Signs Temperature 98.0 F 06/29/17 14:50 Pulse Rate 73 06/29/17 14:50 Respiratory Rate 18 06/29/17 14:50 Blood Pressure 101/57 06/29/17 14:50 O2 Sat by Pulse Oximetry (%) 96 06/29/17 08:14 Labs: CBC, BMP 06/29/17 09:30 06/29/17 09:30
[2017-06-29] MEDS: MEROPENEM 1 GM in DEXTROSE 5%-WATER - 100 ML IVPB SCH (18:19)
[2017-06-29] MEDS: ATORVASTATIN CA 20 MG TABLET (FP) PO SCH (21:23)
[2017-06-29] MEDS ORDERED: ERTAPENEM SODIUM - 1 GRAM 1 GM/50 ML BAG IVPB SCH (22:00)
[2017-06-30] MEDS: VANCOMYCIN 1,250 MG in DEXTROSE 5%-WATER - 250 ML IVPB SCH (01:03)
[2017-06-30] MEDS: MEROPENEM 1 GM in DEXTROSE 5%-WATER - 100 ML IVPB SCH ×4 (03:03→21:14)
[2017-06-30] MEDS: LEVOTHYROXINE NA 112 MCG TABLET (FP) PO SCH (06:29)
[2017-06-30] MEDS: ALBUTEROL SO4 0.083% IH SOL 2.5 MG/3 ML VIAL.NEB. NEB PRN (06:36)
[2017-06-30] MEDS ORDERED: PT OWN MED DRAWER 7, Y5N ONE (09:57)
[2017-06-30] MEDS: VITAMIN B COMPLEX W/C COMBO TABLET (FP) PO SCH (10:00)
[2017-06-30] MEDS: ASCORBIC ACID 500 MG TABLET (FP) PO SCH (10:05)
[2017-06-30] MEDS: DULoxetine HCL 20 MG CAPSULE.DR (FP) PO SCH ×2 (10:05→21:15)
[2017-06-30] MEDS: MULTIVITAMINS THER W-MINERALS COMBO TABLET (FP) PO SCH (10:06)
[2017-06-30] MEDS: CHOLECALCIFEROL (VITAMIN D3) 1,000 UNIT TABLET (FP) PO SCH (10:06)
[2017-06-30] MEDS: PANTOPRAZOLE 40 MG TABLET (FP) PO SCH (10:07)
[2017-06-30] MEDS: APIXABAN 2.5 MG TABLET PO SCH ×2 (10:07→21:15)
[2017-06-30] MEDS: METOPROLOL TARTRATE 25 MG TABLET (FP) PO SCH ×2 (10:07→21:15)
[2017-06-30] MEDS: ALBUTEROL SO4 2.5/IPRATROPIUM 0.5 INH SOL 3 ML VIAL.NEB. NEB SCH ×4 (10:07→21:15)
[2017-06-30] MEDS: LISINOPRIL 10 MG TABLET (FP) PO SCH (10:14)
--- NOTE | 2017-06-30 16:52 | PN ---
Physical Exam: SUBJECTIVE: Patient seen and examined oob to chair. Eating dinner. OBJECTIVE: Vital Signs Period Temp Pulse Resp BP Sys/Smith Pulse Ox Last 24 Hr 98.0 F-101.2 F 71-92 17-19 118-143/57-67 97-98 GENERAL: The patient is awake, alert, and fully oriented, in no acute distress. LUNGS: Diminished at the bases, no wheezing, rhonchi, or crackles appreciated; no accessory muscle use HEART: Regular rate and rhythm, S1, S2 +murmur ABDOMEN: Soft, nontender, nondistended, normoactive bowel sounds EXTREMITIES: 2+ pulses, warm, well-perfused, no edema. NEUROLOGICAL: Cranial nerves II through XII grossly intact. Normal speech, gait not observed. Active Medications Generic Name Dose Route Start Last Admin Trade Name Freq PRN Reason Stop Dose Admin Albuterol Sulfate 1 amp 06/29/17 00:59 06/30/17 06:36 Ventolin 0.083% Nebulizer Soln - NEB 1 amp Q4H PRN Administration SHORT OF BREATH/WHEEZING Albuterol/Ipratropium 1 amp 06/29/17 12:00 06/30/17 12:31 Duoneb - NEB 1 amp RQID RENETTA Administration Apixaban 2.5 mg 06/29/17 10:00 06/30/17 10:07 Eliquis - PO 2.5 mg BID RENETTA Administration Ascorbic Acid 500 mg 06/29/17 10:00 06/30/17 10:05 Vitamin C - PO 500 mg DAILY RENETTA Administration Atorvastatin Calcium 20 mg 06/29/17 22:00 06/29/17 21:23 Lipitor - PO 20 mg HS RENETTA Administration Cholecalciferol 1,000 unit 06/29/17 10:00 06/30/17 10:06 Vitamin D3 - PO 1,000 unit DAILY RENETTA Administration Duloxetine HCl 20 mg 06/29/17 10:00 06/30/17 10:05 Cymbalta - PO 20 mg BID RENETTA Administration Meropenem 1 gm/ Dextrose 100 mls @ 200 mls/hr 06/29/17 15:30 06/30/17 10:08 IVPB 200 mls/hr Q8H-IV RENETTA Administration Protocol Vancomycin HCl 1,250 mg/ 250 mls @ 125 mls/hr 06/30/17 00:00 06/30/17 01:03 Dextrose IVPB 125 mls/hr DAILY@0000 RENETTA Administration Protocol Levothyroxine Sodium 112 mcg 06/29/17 07:15 06/30/17 06:29 Synthroid - PO 112 mcg DAILY@0700 RENETTA Administration Lisinopril 10 mg 06/29/17 10:00 06/30/17 10:14 Prinivil PO 10 mg DAILY RENETTA Administration Metoprolol Tartrate 25 mg 06/29/17 10:00 06/30/17 10:07 Lopressor - PO 25 mg BID RENETTA Administration Multivitamins 1 each 06/29/17 10:00 06/29/17 10:42 Total B With C - PO 1 each DAILY RENETTA Administration Multivitamins/Minerals 1 each 06/29/17 10:00 06/30/17 10:06 Theragran-M PO 1 each DAILY RENETTA Administration Pantoprazole Sodium 40 mg 06/29/17 10:00 06/30/17 10:07 Protonix - PO 40 mg DAILY RENETTA Administration Imaging ; small bilateral pleural effusions 06/29 Echo: Grade I diastolic dysfunction; RV normal; mild MR; mild TR; mild AI ASSESSMENT/PLAN: 89 year-old female with a PMH significant for HTN, HLD, CAD, paroxysmal atrial fibrillation on Eliquis, h/o right posterior cerebral artery stroke (2012), and hypothyroidism. Seen in the ED on 06/16, diagnosed with URI and treated empirically with Tamiflu. Admitted for sepsis secondary to pneumonia. Sepsis secondary to pneumonia s/p influenza --febrile to 101.4, WBC 15.6k --06/29 CT chest: LLL consolidation/pnemonia; RLL atelectasis v. infiltrates --presently afebrile, WBC trending down --blood cultures NGTD; urine culture contaminated, resend --continue meropenem (day #2), vanc (day #1) --duonebs schedule, albuterol nebs PRN Paroxysmal atrial fibrillation --rate well-controlled, continue metoprolol --on Eliquis Hypertension --BP stable --continue metoprolol, lisinopril Hyperlipidemia --continue Lipitor Coronary artery disease --continue metoprolol, Lipitor Diastolic dysfunction --06/29 Echo: Grade I diastolic dysfunction; RV normal; mild MR; mild TR; mild AI --small bilateral pleural effusions --hold diuretics for now due to sepsis --strict I&Os, daily weights h/o right posterior cerebral artery stroke --on Eliquis Hypothyroidism --continue levothyroxine GERD --continue protonix FEN Fluids: PO intake adequate Electrolytes: replete as indicated Nutrition: low sodium DVT prophylaxis: on Eliquis Physical therapy evaluation Dispo: continues to require inpatient care. Full code. Visit type - Emergency Visit Emergency Visit: Yes ED Registration Date: 06/29/17 Care time: The patient presented to the Emergency Department on the above date and was hospitalized for further evaluation of their emergent condition. - New Patient This patient is new to me today: Yes Date on this admission: 06/30/17 - Critical Care Critical Care patient: No
[2017-06-30] MEDS ORDERED: REFRIGERATED ANITBIOTICS ONE (18:08)
[2017-06-30 18:43] LABS: URINE APPEARANCE Clear; URINE BILIRUBIN Negative (NEGATIVE); URINE BLOOD 3+ (NEGATIVE); URINE COLOR YELLOW; URINE GLUCOSE (UA) Negative (NEGATIVE); URINE KETONE Negative (NEGATIVE); URINE LEUK ESTERASE Negative (NEGATIVE); URINE NITRITE Negative (NEGATIVE); URINE PROTEIN Trace (NEGATIVE)
[2017-06-30 19:06] LABS: URINE RBC 30-50 /hpf (0-3); URINE WBC 0-3 (0-5)
[2017-06-30] MEDS: ATORVASTATIN CA 20 MG TABLET (FP) PO SCH (21:15)
[2017-07-01] MEDS ORDERED: REFRIGERATED ANITBIOTICS ONE (00:31)
[2017-07-01] MEDS: VANCOMYCIN 1,250 MG in DEXTROSE 5%-WATER - 250 ML IVPB SCH (00:31)
[2017-07-01] MEDS: MEROPENEM 1 GM in DEXTROSE 5%-WATER - 100 ML IVPB SCH ×3 (04:35→18:04)
[2017-07-01] MEDS: LEVOTHYROXINE NA 112 MCG TABLET (FP) PO SCH (06:32)
[2017-07-01 08:27] LABS: HEMATOCRIT 33.1 % (32.4-45.2); HEMOGLOBIN 11.5 GM/dl (10.7-15.3); MCH 31.4 pg (25.7-33.7); MCHC 34.8 g/dl (32.0-36.0); MEAN CELL VOLUME 90.3 fl (80-96); MEAN PLT VOLUME 8.8 fl (7.5-11.1); PLATELET COUNT 241 K/MM3 (134-434); RBC 3.67 M/mm3 (3.60-5.2); RDW 13.4 % (11.6-15.6); WHITE BLOOD COUNT 10.2 K/mm3 (4.0-10.8)
[2017-07-01 08:47] LABS: ALBUMIN 2.6 g/dl (3.5-5.0); ALK PHOS 42 U/L (32-92); ANION GAP 6 (8-16); BILIRUBIN,TOTAL 1.1 mg/dl (0.2-1.0); BLOOD UREA NITROGEN 9 mg/dl (7-18); CALCIUM 8.2 mg/dl (8.4-10.2); CHLORIDE 104 mmol/L (98-107); CO2 23 mmol/L (22-28); GLUCOSE,RANDOM 96 mg/dl (74-106); POTASSIUM 4.2 mmol/L (3.5-5.1); SGOT/AST 30 U/L (10-42); SGPT/ALT 32 U/L (10-40); SODIUM 133 mmol/L (136-145); TOT PROT 5.5 g/dl (6.4-8.3)
[2017-07-01 09:04] LABS: CREATININE < 0.8 mg/dl (0.6-1.3)
[2017-07-01] MEDS: CHOLECALCIFEROL (VITAMIN D3) 1,000 UNIT TABLET (FP) PO SCH (10:09)
[2017-07-01] MEDS: MULTIVITAMINS THER W-MINERALS COMBO TABLET (FP) PO SCH (10:09)
[2017-07-01] MEDS: DULoxetine HCL 20 MG CAPSULE.DR (FP) PO SCH ×2 (10:09→22:33)
[2017-07-01] MEDS: ASCORBIC ACID 500 MG TABLET (FP) PO SCH (10:10)
[2017-07-01] MEDS: PANTOPRAZOLE 40 MG TABLET (FP) PO SCH (10:10)
[2017-07-01] MEDS: LISINOPRIL 10 MG TABLET (FP) PO SCH (10:10)
[2017-07-01] MEDS: APIXABAN 2.5 MG TABLET PO SCH ×2 (10:10→21:46)
[2017-07-01] MEDS: ALBUTEROL SO4 2.5/IPRATROPIUM 0.5 INH SOL 3 ML VIAL.NEB. NEB SCH ×4 (10:10→21:15)
[2017-07-01] MEDS: METOPROLOL TARTRATE 25 MG TABLET (FP) PO SCH ×2 (10:10→21:46)
[2017-07-01] MEDS: VITAMIN B COMPLEX W/C COMBO TABLET (FP) PO SCH (10:11)
--- NOTE | 2017-07-01 11:43 | PN ---
Progress Note, Physician History of Present Illness: patient feeling much better still coughing and feels weak - Current Medication List Current Medications: Active Medications Albuterol Sulfate (Ventolin 0.083% Nebulizer Soln -) 1 amp NEB Q4H PRN PRN Reason: SHORT OF BREATH/WHEEZING Last Admin: 06/30/17 06:36 Dose: 1 amp Albuterol/Ipratropium (Duoneb -) 1 amp NEB RQID [facility] Last Admin: 07/01/17 10:10 Dose: 1 amp Apixaban (Eliquis -) 2.5 mg PO BID [facility] Last Admin: 07/01/17 10:10 Dose: 2.5 mg Ascorbic Acid (Vitamin C -) 500 mg PO DAILY [facility] Last Admin: 07/01/17 10:10 Dose: 500 mg Atorvastatin Calcium (Lipitor -) 20 mg PO HS [facility] Last Admin: 06/30/17 21:15 Dose: 20 mg Cholecalciferol (Vitamin D3 -) 1,000 unit PO DAILY [facility] Last Admin: 07/01/17 10:09 Dose: 1,000 unit Duloxetine HCl (Cymbalta -) 20 mg PO BID [facility] Last Admin: 07/01/17 10:09 Dose: 20 mg Meropenem 1 gm/ Dextrose 100 mls @ 200 mls/hr IVPB Q8H-IV [facility] PRN Reason: Protocol Last Admin: 07/01/17 10:10 Dose: 200 mls/hr Vancomycin HCl 1,250 mg/ (Dextrose) 250 mls @ 125 mls/hr IVPB DAILY@0000 [facility] PRN Reason: Protocol Last Admin: 07/01/17 00:31 Dose: 125 mls/hr Levothyroxine Sodium (Synthroid -) 112 mcg PO DAILY@0700 [facility] Last Admin: 07/01/17 06:32 Dose: 112 mcg Lisinopril (Prinivil) 10 mg PO DAILY [facility] Last Admin: 07/01/17 10:10 Dose: 10 mg Metoprolol Tartrate (Lopressor -) 25 mg PO BID [facility] Last Admin: 07/01/17 10:10 Dose: 25 mg Multivitamins (Total B With C -) 1 each PO DAILY [facility] Last Admin: 07/01/17 10:11 Dose: 1 each Multivitamins/Minerals (Theragran-M) 1 each PO DAILY [facility] Last Admin: 07/01/17 10:09 Dose: 1 each Pantoprazole Sodium (Protonix -) 40 mg PO DAILY [facility] Last Admin: 07/01/17 10:10 Dose: 40 mg - Objective Vital Signs: Vital Signs Temperature 98.0 F 07/01/17 06:00 Pulse Rate 75 07/01/17 06:00 Respiratory Rate 19 07/01/17 06:00 Blood Pressure 137/62 07/01/17 06:00 O2 Sat by Pulse Oximetry (%) 96 07/01/17 06:17 Constitutional: Yes: No Distress, Calm Cardiovascular: Yes: Regular Rate and Rhythm Respiratory: Yes: Regular, Poor Air Entry, Rhonchi Gastrointestinal: Yes: Normal Bowel Sounds, Soft Musculoskeletal: Yes: WNL Extremities: Yes: WNL Neurological: Yes: Alert, Oriented Psychiatric: Yes: Alert, Oriented Labs: CBC, BMP 07/01/17 06:30 07/01/17 06:30 Assessment/Plan fever cough pna weakness plan continue abx incentive ricci rest as per primary team continue current mgmt
--- NOTE | 2017-07-01 15:30 | PN ---
Physical Exam: SUBJECTIVE: Patient seen and examined OBJECTIVE: Vital Signs Period Temp Pulse Resp BP Sys/Smith Pulse Ox Last 24 Hr 97.9 F-98.8 F 70-107 19-19 108-137/49-68 96-100 GENERAL: The patient is awake, alert, and fully oriented, in no acute distress. LUNGS: CTA; air movement at bases improved, no wheezing, rhonchi, or crackles appreciated; no accessory muscle use HEART: Regular rate and rhythm, S1, S2 +murmur ABDOMEN: Soft, nontender, nondistended, normoactive bowel sounds EXTREMITIES: 2+ pulses, warm, well-perfused, no edema. NEUROLOGICAL: Cranial nerves II through XII grossly intact. Normal speech, gait not observed. Laboratory Results - last 24 hr 06/30/17 07/01/17 07/01/17 18:30 06:30 06:30 WBC 10.2 D RBC 3.67 Hgb 11.5 D Hct 33.1 MCV 90.3 MCH 31.4 MCHC 34.8 RDW 13.4 Plt Count 241 MPV 8.8 Sodium 133 L Potassium 4.2 Chloride 104 Carbon Dioxide 23 Anion Gap 6 L BUN 9 Creatinine < 0.8 D Creat Clearance w eGFR > 60 Random Glucose 96 Calcium 8.2 L Total Bilirubin 1.1 H D AST 30 D ALT 32 D Alkaline Phosphatase 42 Total Protein 5.5 L Albumin 2.6 L D Urine Color Yellow Urine Appearance Clear Urine pH 6.0 Ur Specific [place] 1.015 Urine Protein Trace Urine Glucose (UA) Negative Urine Ketones Negative Urine Blood 3+ H Urine Nitrite Negative Urine Bilirubin Negative Urine Urobilinogen 2.0 H Ur Leukocyte Esterase Negative Urine RBC 30-50 Urine WBC 0-3 Ur Epithelial Cells 3-5 Active Medications Generic Name Dose Route Start Last Admin Trade Name Freq PRN Reason Stop Dose Admin Albuterol Sulfate 1 amp 06/29/17 00:59 06/30/17 06:36 Ventolin 0.083% Nebulizer Soln - NEB 1 amp Q4H PRN Administration SHORT OF BREATH/WHEEZING Albuterol/Ipratropium 1 amp 06/29/17 12:00 07/01/17 12:00 Duoneb - NEB 1 amp RQID [facility] Administration Apixaban 2.5 mg 06/29/17 10:00 07/01/17 10:10 Eliquis - PO 2.5 mg BID [facility] Administration Ascorbic Acid 500 mg 06/29/17 10:00 07/01/17 10:10 Vitamin C - PO 500 mg DAILY [facility] Administration Atorvastatin Calcium 20 mg 06/29/17 22:00 06/30/17 21:15 Lipitor - PO 20 mg HS [facility] Administration Cholecalciferol 1,000 unit 06/29/17 10:00 07/01/17 10:09 Vitamin D3 - PO 1,000 unit DAILY [facility] Administration Duloxetine HCl 20 mg 06/29/17 10:00 07/01/17 10:09 Cymbalta - PO 20 mg BID [facility] Administration Meropenem 1 gm/ Dextrose 100 mls @ 200 mls/hr 06/29/17 15:30 07/01/17 10:10 IVPB 200 mls/hr Q8H-IV [facility] Administration Protocol Vancomycin HCl 1,250 mg/ 250 mls @ 125 mls/hr 06/30/17 00:00 07/01/17 00:31 Dextrose IVPB 125 mls/hr DAILY@0000 [facility] Administration Protocol Levothyroxine Sodium 112 mcg 06/29/17 07:15 07/01/17 06:32 Synthroid - PO 112 mcg DAILY@0700 [facility] Administration Lisinopril 10 mg 06/29/17 10:00 07/01/17 10:10 Prinivil PO 10 mg DAILY [facility] Administration Metoprolol Tartrate 25 mg 06/29/17 10:00 07/01/17 10:10 Lopressor - PO 25 mg BID [facility] Administration Multivitamins 1 each 06/29/17 10:00 07/01/17 10:11 Total B With C - PO 1 each DAILY [facility] Administration Multivitamins/Minerals 1 each 06/29/17 10:00 07/01/17 10:09 Theragran-M PO 1 each DAILY [facility] Administration Pantoprazole Sodium 40 mg 06/29/17 10:00 07/01/17 10:10 Protonix - PO 40 mg DAILY [facility] Administration Imaging 06/28 CXR: unremarkable 06/29 CT chest: LLL consolidation/PNA; atelectasis v. infiltrates RLL; small bilateral pleural effusions 06/29 Echo: Grade I diastolic dysfunction; RV normal; mild MR; mild TR; mild AI ASSESSMENT/PLAN: 89 year-old female with a PMH significant for HTN, HLD, CAD, paroxysmal atrial fibrillation on Eliquis, h/o right posterior cerebral artery stroke (2012), and hypothyroidism. Seen in the ED on 06/16, diagnosed with URI and treated empirically with Tamiflu. Admitted for sepsis secondary to pneumonia. Sepsis secondary to pneumonia and influenza --Tm 100.7, WBC trended to wnl --06/29 CT chest: LLL consolidation/pnemonia; RLL atelectasis v. infiltrates --blood cultures NGTD --continue meropenem (day #3), vanc (day #2) --duonebs schedule, albuterol nebs PRN --pre post ordered Paroxysmal atrial fibrillation --rate well-controlled, continue metoprolol --on Eliquis Hypertension --BP stable --continue metoprolol, lisinopril Hyperlipidemia --continue Lipitor Coronary artery disease --continue metoprolol, Lipitor Diastolic dysfunction --06/29 Echo: Grade I diastolic dysfunction; RV normal; mild MR; mild TR; mild AI --small bilateral pleural effusions --appears euvolemic --strict I&Os, daily weights h/o right posterior cerebral artery stroke --on Eliquis Hypothyroidism --continue levothyroxine GERD --continue protonix FEN Fluids: PO intake adequate Electrolytes: replete as indicated Nutrition: low sodium DVT prophylaxis: on Eliquis Physical therapy evaluation Dispo: continues to require inpatient care. Full code. Visit type - Emergency Visit Emergency Visit: Yes ED Registration Date: 06/29/17 Care time: The patient presented to the Emergency Department on the above date and was hospitalized for further evaluation of their emergent condition. - New Patient This patient is new to me today: No - Critical Care Critical Care patient: No
[2017-07-01] MEDS: ALBUTEROL SO4 0.083% IH SOL 2.5 MG/3 ML VIAL.NEB. NEB PRN (21:45)
[2017-07-01] MEDS: ATORVASTATIN CA 20 MG TABLET (FP) PO SCH (21:46)
[2017-07-01] MEDS: guaiFENesin 200 MG/10 ML 10 ML UNIT-DOSE CUPS PO PRN (23:36)
[2017-07-02] MEDS: VANCOMYCIN 1,250 MG in DEXTROSE 5%-WATER - 250 ML IVPB SCH (00:43)
[2017-07-02] MEDS: MEROPENEM 1 GM in DEXTROSE 5%-WATER - 100 ML IVPB SCH ×3 (03:00→17:54)
[2017-07-02] MEDS: LEVOTHYROXINE NA 112 MCG TABLET (FP) PO SCH (06:49)
--- NOTE | 2017-07-02 07:37 | PN ---
Progress Note, Physician History of Present Illness: patient doing well feeling better still with cough - Current Medication List Current Medications: Active Medications Albuterol Sulfate (Ventolin 0.083% Nebulizer Soln -) 1 amp NEB Q4H PRN PRN Reason: SHORT OF BREATH/WHEEZING Last Admin: 07/01/17 21:45 Dose: 1 amp Albuterol/Ipratropium (Duoneb -) 1 amp NEB RQID [facility] Last Admin: 07/01/17 21:15 Dose: Not Given Apixaban (Eliquis -) 2.5 mg PO BID [facility] Last Admin: 07/01/17 21:46 Dose: 2.5 mg Ascorbic Acid (Vitamin C -) 500 mg PO DAILY [facility] Last Admin: 07/01/17 10:10 Dose: 500 mg Atorvastatin Calcium (Lipitor -) 20 mg PO HS [facility] Last Admin: 07/01/17 21:46 Dose: 20 mg Cholecalciferol (Vitamin D3 -) 1,000 unit PO DAILY [facility] Last Admin: 07/01/17 10:09 Dose: 1,000 unit Duloxetine HCl (Cymbalta -) 20 mg PO BID [facility] Last Admin: 07/01/17 22:33 Dose: 20 mg Guaifenesin (Robitussin -) 10 ml PO Q4H PRN PRN Reason: COUGH Last Admin: 07/01/17 23:36 Dose: 10 ml Meropenem 1 gm/ Dextrose 100 mls @ 200 mls/hr IVPB Q8H-IV [facility] PRN Reason: Protocol Last Admin: 07/02/17 03:00 Dose: 200 mls/hr Vancomycin HCl 1,250 mg/ (Dextrose) 250 mls @ 125 mls/hr IVPB DAILY@0000 [facility] PRN Reason: Protocol Last Admin: 07/02/17 00:43 Dose: 125 mls/hr Levothyroxine Sodium (Synthroid -) 112 mcg PO DAILY@0700 [facility] Last Admin: 07/02/17 06:49 Dose: 112 mcg Lisinopril (Prinivil) 10 mg PO DAILY [facility] Last Admin: 07/01/17 10:10 Dose: 10 mg Metoprolol Tartrate (Lopressor -) 25 mg PO BID [facility] Last Admin: 07/01/17 21:46 Dose: 25 mg Multivitamins (Total B With C -) 1 each PO DAILY [facility] Last Admin: 07/01/17 10:11 Dose: 1 each Multivitamins/Minerals (Theragran-M) 1 each PO DAILY [facility] Last Admin: 07/01/17 10:09 Dose: 1 each Pantoprazole Sodium (Protonix -) 40 mg PO DAILY [facility] Last Admin: 07/01/17 10:10 Dose: 40 mg - Objective Vital Signs: Vital Signs Temperature 98.0 F 07/02/17 06:00 Pulse Rate 82 07/02/17 06:00 Respiratory Rate 18 07/02/17 06:00 Blood Pressure 144/69 07/02/17 06:00 O2 Sat by Pulse Oximetry (%) 97 07/01/17 22:15 Constitutional: Yes: No Distress, Calm Neck: Yes: Supple Cardiovascular: Yes: Regular Rate and Rhythm Respiratory: Yes: Regular, Rhonchi Gastrointestinal: Yes: Normal Bowel Sounds, Soft Extremities: Yes: WNL Neurological: Yes: Alert, Oriented Psychiatric: Yes: Alert Labs: CBC, BMP 07/01/17 06:30 07/01/17 06:30 Assessment/Plan fever cough pna weakness plan continue abx incentive ricci rest as per primary team continue current mgmt will need abx till iv will send trough tomorrow
[2017-07-02 08:26] LABS: BASO % 0.6 % (0-2.0); EOS % 1.8 % (0-4.5); HEMATOCRIT 34.7 % (32.4-45.2); HEMOGLOBIN 12.1 GM/dl (10.7-15.3); LYMPH % 16.3 % (8-40); MCH 31.6 pg (25.7-33.7); MEAN CELL VOLUME 90.4 fl (80-96); MEAN PLT VOLUME 8.2 fl (7.5-11.1); MONO % 8.2 % (3.8-10.2); NEUT % 73.1 % (42.8-82.8); PLATELET COUNT 263 K/MM3 (134-434); RBC 3.84 M/mm3 (3.60-5.2); RDW 13.6 % (11.6-15.6); WHITE BLOOD COUNT 7.5 K/mm3 (4.0-10.8)
[2017-07-02] MEDS: ALBUTEROL SO4 2.5/IPRATROPIUM 0.5 INH SOL 3 ML VIAL.NEB. NEB SCH ×4 (08:50→21:19)
[2017-07-02 08:51] LABS: ALBUMIN 2.7 g/dl (3.5-5.0); ALK PHOS 44 U/L (32-92); ANION GAP 8 (8-16); BLOOD UREA NITROGEN 10 mg/dl (7-18); CALCIUM 8.7 mg/dl (8.4-10.2); CHLORIDE 103 mmol/L (98-107); CO2 25 mmol/L (22-28); GLUCOSE,RANDOM 96 mg/dl (74-106); POTASSIUM 4.2 mmol/L (3.5-5.1); SGOT/AST 28 U/L (10-42); SGPT/ALT 37 U/L (10-40); SODIUM 136 mmol/L (136-145); TOT PROT 5.7 g/dl (6.4-8.3)
[2017-07-02] MEDS ORDERED: PT OWN MED DRAWER 7, Y5N ONE ×4 (09:29→21:17)
[2017-07-02 09:31] LABS: CREATININE < 0.8 mg/dl (0.6-1.3)
[2017-07-02] MEDS: METOPROLOL TARTRATE 25 MG TABLET (FP) PO SCH ×2 (10:15→21:19)
[2017-07-02] MEDS: PANTOPRAZOLE 40 MG TABLET (FP) PO SCH (10:15)
[2017-07-02] MEDS: APIXABAN 2.5 MG TABLET PO SCH ×2 (10:15→21:19)
[2017-07-02] MEDS: CHOLECALCIFEROL (VITAMIN D3) 1,000 UNIT TABLET (FP) PO SCH (10:15)
[2017-07-02] MEDS: ASCORBIC ACID 500 MG TABLET (FP) PO SCH (10:16)
[2017-07-02] MEDS: VITAMIN B COMPLEX W/C COMBO TABLET (FP) PO SCH (10:16)
[2017-07-02] MEDS: MULTIVITAMINS THER W-MINERALS COMBO TABLET (FP) PO SCH (10:16)
[2017-07-02] MEDS: DULoxetine HCL 20 MG CAPSULE.DR (FP) PO SCH ×2 (10:17→21:19)
[2017-07-02] MEDS: LISINOPRIL 10 MG TABLET (FP) PO SCH (10:27)
--- NOTE | 2017-07-02 12:21 | PN ---
Physical Exam: SUBJECTIVE: Patient seen and examined, sitting up in bedside chair, reports moist cough. OBJECTIVE: 89 year-old female with a PMH significant for HTN, HLD, CAD, paroxysmal atrial fibrillation on Eliquis, h/o right posterior cerebral artery stroke (2012), and hypothyroidism. Seen in the ED on 06/16, diagnosed with URI and treated empirically with Tamiflu. Admitted for sepsis secondary to pneumonia. Vital Signs Period Temp Pulse Resp BP Sys/Smith Pulse Ox Last 24 Hr 97.9 F-98.8 F 70-82 18-19 114-144/60-71 97-98 GENERAL: The patient is awake, alert, and fully oriented, in no acute distress. HEAD: Normal with no signs of trauma. EYES: PERRL, extraocular movements intact, sclera anicteric, conjunctiva clear. No ptosis. ENT: Ears normal, nares patent, oropharynx clear without exudates, moist mucous membranes. NECK: Trachea midline, full range of motion, supple. LUNGS: Breath sounds equal, clear to auscultation bilaterally (much improved), moist cough is noted, no wheezes, no crackles, no accessory muscle use. HEART: Regular rate and rhythm, S1, S2 without murmur, rub or gallop. ABDOMEN: Soft, nontender, nondistended, normoactive bowel sounds, no guarding, no rebound, no hepatosplenomegaly, no masses. EXTREMITIES: 2+ pulses, warm, well-perfused, no edema. NEUROLOGICAL: Cranial nerves II through XII grossly intact. Normal speech, gait not observed. PSYCH: Normal mood, normal affect. SKIN: Warm, dry, normal turgor, no rashes or lesions noted Laboratory Results - last 24 hr 07/02/17 07/02/17 07:25 07:25 WBC 7.5 RBC 3.84 Hgb 12.1 Hct 34.7 MCV 90.4 MCH 31.6 MCHC 35.0 RDW 13.6 Plt Count 263 MPV 8.2 Neutrophils % 73.1 Lymphocytes % 16.3 Monocytes % 8.2 Eosinophils % 1.8 Basophils % 0.6 Sodium 136 Potassium 4.2 Chloride 103 Carbon Dioxide 25 Anion Gap 8 BUN 10 Creatinine < 0.8 Creat Clearance w eGFR > 60 Random Glucose 96 Calcium 8.7 Magnesium 2.0 Total Bilirubin 1.0 AST 28 ALT 37 Alkaline Phosphatase 44 Total Protein 5.7 L Albumin 2.7 L Active Medications Generic Name Dose Route Start Last Admin Trade Name Freq PRN Reason Stop Dose Admin Albuterol Sulfate 1 amp 06/29/17 00:59 07/01/17 21:45 Ventolin 0.083% Nebulizer Soln - NEB 1 amp Q4H PRN Administration SHORT OF BREATH/WHEEZING Albuterol/Ipratropium 1 amp 06/29/17 12:00 07/02/17 08:50 Duoneb - NEB 1 amp RQID [facility] Administration Apixaban 2.5 mg 06/29/17 10:00 07/02/17 10:15 Eliquis - PO 2.5 mg BID [facility] Administration Ascorbic Acid 500 mg 06/29/17 10:00 07/02/17 10:16 Vitamin C - PO 500 mg DAILY [facility] Administration Atorvastatin Calcium 20 mg 06/29/17 22:00 07/01/17 21:46 Lipitor - PO 20 mg HS [facility] Administration Cholecalciferol 1,000 unit 06/29/17 10:00 07/02/17 10:15 Vitamin D3 - PO 1,000 unit DAILY [facility] Administration Duloxetine HCl 20 mg 06/29/17 10:00 07/02/17 10:17 Cymbalta - PO 20 mg BID [facility] Administration Guaifenesin 10 ml 07/01/17 23:08 07/01/17 23:36 Robitussin - PO 10 ml Q4H PRN Administration COUGH Meropenem 1 gm/ Dextrose 100 mls @ 200 mls/hr 06/29/17 15:30 07/02/17 10:11 IVPB 200 mls/hr Q8H-IV [facility] Administration Protocol Vancomycin HCl 1,250 mg/ 250 mls @ 125 mls/hr 06/30/17 00:00 07/02/17 00:43 Dextrose IVPB 125 mls/hr DAILY@0000 [facility] Administration Protocol Levothyroxine Sodium 112 mcg 06/29/17 07:15 07/02/17 06:49 Synthroid - PO 112 mcg DAILY@0700 [facility] Administration Lisinopril 10 mg 07/03/17 10:00 Prinivil PO DAILY [facility] Metoprolol Tartrate 25 mg 06/29/17 10:00 07/02/17 10:15 Lopressor - PO 25 mg BID [facility] Administration Multivitamins 1 each 06/29/17 10:00 02/26/18 10:16 Total B With C - PO 1 each DAILY [facility] Administration Multivitamins/Minerals 1 each 06/29/17 10:00 07/02/17 10:16 Theragran-M PO 1 each DAILY [facility] Administration Pantoprazole Sodium 40 mg 06/29/17 10:00 07/02/17 10:15 Protonix - PO 40 mg DAILY [facility] Administration Microbiology 06/29/17 17:50 Urine For Antigen Detection Legionella Antigen - Final 06/29/17 17:50 Urine For Antigen Detection Streptococcus pneumoniae Antigen (M - Final 06/30/17 18:30 Urine - Urine Clean Catch Urine Culture - Final NO GROWTH OBTAINED 06/29/17 00:05 Blood - Peripheral Venous Blood Culture - Preliminary NO GROWTH OBTAINED AFTER 72 HOURS, INCUBATION TO CONTINUE FOR 2 DAYS. 06/29/17 00:05 Blood - Peripheral Venous Blood Culture - Preliminary NO GROWTH OBTAINED AFTER 72 HOURS, INCUBATION TO CONTINUE FOR 2 DAYS. 06/29/17 00:14 Urine - Urine Clean Catch Urine Culture - Final Contaminated: Please Repeat IMAGING 06/28 CXR: unremarkable 06/29 CT chest: LLL consolidation/PNA; atelectasis v. infiltrates RLL; small bilateral pleural effusions 06/29 Echo: Grade I diastolic dysfunction; RV normal; mild MR; mild TR; mild AI ASSESSMENT/PLAN: 1) Sepsis secondary to pneumonia and influenza - pt is afebrile no leukocytosis noted - blood and urine cultures negative to date -continue meropenem (day #4), vanc (day #3) -duonebs schedule, albuterol nebs PRN 2) cardiovascular Paroxysmal atrial fibrillation - rate well-controlled, continue metoprolol and Eliquis Hypertension - -BP at goal, continue metoprolol and lisinopril Hyperlipidemia -continue Lipitor Coronary artery disease -continue metoprolol, Lipitor Diastolic dysfunction - patient is evolemic on exam, strict i/o and daily weights h/o right posterior cerebral artery stroke - on Eliquis 3) endo Hypothyroidism -continue levothyroxine, tsh and t3 wnol 4) GI GERD - continue protonix FEN Fluids: PO intake adequate Electrolytes: replete as indicated Nutrition: low sodium DVT prophylaxis: on Eliquis Physical therapy evaluation discussed with patient's daughter Salina via phone, agrees with plan, all questions answered Dispo: continues to require inpatient care. Full code. Problem List - Problems (1) Pneumonia Code(s): J18.9 - PNEUMONIA, UNSPECIFIED ORGANISM (2) Atrial fibrillation Code(s): I48.91 - UNSPECIFIED ATRIAL FIBRILLATION Qualifiers: Atrial fibrillation type: paroxysmal Qualified Code(s): I48.0 - Paroxysmal atrial fibrillation (3) GERD (gastroesophageal reflux disease) Code(s): K21.9 - GASTRO-ESOPHAGEAL REFLUX DISEASE WITHOUT ESOPHAGITIS Qualifiers: Esophagitis presence: without esophagitis Qualified Code(s): K21.9 - Gastro -esophageal reflux disease without esophagitis (4) Hypercholesteremia Code(s): E78.0 - PURE HYPERCHOLESTEROLEMIA * DO NOT USE * (5) Hypothyroid Code(s): E03.9 - HYPOTHYROIDISM, UNSPECIFIED Qualifiers: Hypothyroidism type: unspecified Qualified Code(s): E03.9 - Hypothyroidism , unspecified (6) Diastolic congestive heart failure Code(s): I50.30 - UNSPECIFIED DIASTOLIC (CONGESTIVE) HEART FAILURE Qualifiers: Heart failure chronicity: chronic Qualified Code(s): I50.32 - Chronic diastolic (congestive) heart failure (7) Sepsis Code(s): A41.9 - SEPSIS, UNSPECIFIED ORGANISM Visit type - Emergency Visit Emergency Visit: Yes ED Registration Date: 06/29/17 Care time: The patient presented to the Emergency Department on the above date and was hospitalized for further evaluation of their emergent condition. - New Patient This patient is new to me today: No - Critical Care Critical Care patient: No - Discharge Referral Referred to [facility] Med [facility] No
--- NOTE | 2017-07-02 15:39 | PN ---
Progress Note, Physician History of Present Illness: doing well still with cough but improved a lot - Current Medication List Current Medications: Active Medications Albuterol Sulfate (Ventolin 0.083% Nebulizer Soln -) 1 amp NEB Q4H PRN PRN Reason: SHORT OF BREATH/WHEEZING Last Admin: 07/01/17 21:45 Dose: 1 amp Albuterol/Ipratropium (Duoneb -) 1 amp NEB RQID [facility] Last Admin: 07/02/17 12:50 Dose: 1 amp Apixaban (Eliquis -) 2.5 mg PO BID [facility] Last Admin: 07/02/17 10:15 Dose: 2.5 mg Ascorbic Acid (Vitamin C -) 500 mg PO DAILY [facility] Last Admin: 07/02/17 10:16 Dose: 500 mg Atorvastatin Calcium (Lipitor -) 20 mg PO HS [facility] Last Admin: 07/01/17 21:46 Dose: 20 mg Cholecalciferol (Vitamin D3 -) 1,000 unit PO DAILY [facility] Last Admin: 07/02/17 10:15 Dose: 1,000 unit Duloxetine HCl (Cymbalta -) 20 mg PO BID [facility] Last Admin: 07/02/17 10:17 Dose: 20 mg Guaifenesin (Robitussin -) 10 ml PO Q4H PRN PRN Reason: COUGH Last Admin: 07/01/17 23:36 Dose: 10 ml Meropenem 1 gm/ Dextrose 100 mls @ 200 mls/hr IVPB Q8H-IV [facility] PRN Reason: Protocol Last Admin: 07/02/17 10:11 Dose: 200 mls/hr Vancomycin HCl 1,250 mg/ (Dextrose) 250 mls @ 125 mls/hr IVPB DAILY@0000 [facility] PRN Reason: Protocol Last Admin: 07/02/17 00:43 Dose: 125 mls/hr Levothyroxine Sodium (Synthroid -) 112 mcg PO DAILY@0700 [facility] Last Admin: 07/02/17 06:49 Dose: 112 mcg Lisinopril (Prinivil) 10 mg PO DAILY [facility] Metoprolol Tartrate (Lopressor -) 25 mg PO BID [facility] Last Admin: 07/02/17 10:15 Dose: 25 mg Multivitamins (Total B With C -) 1 each PO DAILY [facility] Last Admin: 07/02/17 10:16 Dose: 1 each Multivitamins/Minerals (Theragran-M) 1 each PO DAILY [facility] Last Admin: 07/02/17 10:16 Dose: 1 each Pantoprazole Sodium (Protonix -) 40 mg PO DAILY [facility] Last Admin: 07/02/17 10:15 Dose: 40 mg - Objective Vital Signs: Vital Signs Temperature 98.5 F 07/02/17 14:09 Pulse Rate 85 07/02/17 14:09 Respiratory Rate 20 07/02/17 14:09 Blood Pressure 115/74 07/02/17 14:09 O2 Sat by Pulse Oximetry (%) 97 07/02/17 14:02 Constitutional: Yes: No Distress, Calm Cardiovascular: Yes: Regular Rate and Rhythm Respiratory: Yes: Regular, Rhonchi Gastrointestinal: Yes: Normal Bowel Sounds, Soft Musculoskeletal: Yes: WNL Extremities: Yes: WNL Neurological: Yes: Alert, Oriented Psychiatric: Yes: Alert, Oriented Labs: CBC, BMP 07/02/17 07:25 07/02/17 07:25 Assessment/Plan fever cough pna weakness wbc has normalized plan continue abx incentive ricci rest as per primary team continue current mgmt ABX thorugh tomorrow then will switch to oral levaquin for another 3 days
[2017-07-02] MEDS: guaiFENesin 200 MG/10 ML 10 ML UNIT-DOSE CUPS PO PRN (21:19)
[2017-07-02] MEDS: ATORVASTATIN CA 20 MG TABLET (FP) PO SCH (21:19)
[2017-07-03] MEDS: VANCOMYCIN 1,250 MG in DEXTROSE 5%-WATER - 250 ML IVPB SCH (00:20)
[2017-07-03] MEDS ORDERED: PT OWN MED DRAWER 7, Y5N ONE ×3 (00:44→21:32)
[2017-07-03] MEDS: MEROPENEM 1 GM in DEXTROSE 5%-WATER - 100 ML IVPB SCH ×2 (01:20→09:40)
[2017-07-03] MEDS: LEVOTHYROXINE NA 112 MCG TABLET (FP) PO SCH (06:29)
[2017-07-03] MEDS: ALBUTEROL SO4 2.5/IPRATROPIUM 0.5 INH SOL 3 ML VIAL.NEB. NEB SCH ×4 (08:40→21:34)
[2017-07-03 08:50] LABS: BASO % 0.9 % (0-2.0); HEMOGLOBIN 12.5 GM/dl (10.7-15.3); LYMPH % 19.6 % (8-40); MCH 31.6 pg (25.7-33.7); MCHC 34.9 g/dl (32.0-36.0); MEAN CELL VOLUME 90.7 fl (80-96); MEAN PLT VOLUME 8.1 fl (7.5-11.1); NEUT % 65.5 % (42.8-82.8); PLATELET COUNT 299 K/MM3 (134-434); RBC 3.96 M/mm3 (3.60-5.2); RDW 13.6 % (11.6-15.6); WHITE BLOOD COUNT 5.3 K/mm3 (4.0-10.8)
[2017-07-03 08:51] LABS: ANION GAP 4 (8-16); BLOOD UREA NITROGEN 11 mg/dl (7-18); CALCIUM 8.7 mg/dl (8.4-10.2); CHLORIDE 110 mmol/L (98-107); CO2 28 mmol/L (22-28); GLUCOSE,RANDOM 97 mg/dl (74-106); MAGNESIUM 2.3 mg/dL (1.8-2.4); PHOSPHOROUS 2.8 mg/dl (2.5-4.6); POTASSIUM 4.3 mmol/L (3.5-5.1); SODIUM 142 mmol/L (136-145)
[2017-07-03 09:07] LABS: CREATININE < 0.8 mg/dl (0.6-1.3)
[2017-07-03] MEDS: APIXABAN 2.5 MG TABLET PO SCH ×2 (09:39→21:34)
[2017-07-03] MEDS: METOPROLOL TARTRATE 25 MG TABLET (FP) PO SCH ×2 (09:39→21:40)
[2017-07-03] MEDS: LISINOPRIL 10 MG TABLET (FP) PO SCH (09:40)
[2017-07-03] MEDS: CHOLECALCIFEROL (VITAMIN D3) 1,000 UNIT TABLET (FP) PO SCH (09:40)
[2017-07-03] MEDS: MULTIVITAMINS THER W-MINERALS COMBO TABLET (FP) PO SCH (09:40)
[2017-07-03] MEDS: ASCORBIC ACID 500 MG TABLET (FP) PO SCH (09:40)
[2017-07-03] MEDS: VITAMIN B COMPLEX W/C COMBO TABLET (FP) PO SCH (09:40)
[2017-07-03] MEDS: PANTOPRAZOLE 40 MG TABLET (FP) PO SCH (09:40)
[2017-07-03] MEDS: DULoxetine HCL 20 MG CAPSULE.DR (FP) PO SCH ×2 (10:50→21:34)
--- NOTE | 2017-07-03 12:49 | PN ---
Physical Exam: SUBJECTIVE: Patient seen and examined, sitting up in bed, reports feeling much improved, moist cough, denies any chest pain or shortness of breath OBJECTIVE: 89 year-old female with a PMH significant for HTN, HLD, CAD, paroxysmal atrial fibrillation on Eliquis, h/o right posterior cerebral artery stroke (2012), and hypothyroidism. Seen in the ED on 06/16, diagnosed with URI and treated empirically with Tamiflu. Admitted for sepsis secondary to pneumonia. Vital Signs Period Temp Pulse Resp BP Sys/Smith Pulse Ox Last 24 Hr 97.5 F-98.6 F 69-106 19-20 98-141/57-74 97-100 GENERAL: The patient is awake, alert, and fully oriented, in no acute distress. HEAD: Normal with no signs of trauma. EYES: PERRL, extraocular movements intact, sclera anicteric, conjunctiva clear. No ptosis. ENT: Ears normal, nares patent, oropharynx clear without exudates, moist mucous membranes. NECK: Trachea midline, full range of motion, supple. LUNGS: Breath sounds equal, clear to auscultation bilaterally to apexes, diminished to bases bilaterally, no wheezes, no crackles, no accessory muscle use. HEART: Regular rate and rhythm, S1, S2 without murmur, rub or gallop. ABDOMEN: Soft, nontender, nondistended, normoactive bowel sounds, no guarding, no rebound, no hepatosplenomegaly, no masses. EXTREMITIES: 2+ pulses, warm, well-perfused, no edema. NEUROLOGICAL: Cranial nerves II through XII grossly intact. Normal speech, gait not observed. PSYCH: Normal mood, normal affect. SKIN: Warm, dry, normal turgor, no rashes or lesions noted Laboratory Results - last 24 hr 07/02/17 07/03/17 07/03/17 23:05 07:35 07:35 WBC 5.3 RBC 3.96 Hgb 12.5 Hct 36.0 MCV 90.7 MCH 31.6 MCHC 34.9 RDW 13.6 Plt Count 299 MPV 8.1 Neutrophils % 65.5 Lymphocytes % 19.6 Monocytes % 11.0 H Eosinophils % 3.0 Basophils % 0.9 Sodium 142 Potassium 4.3 Chloride 110 H Carbon Dioxide 28 Anion Gap 4 L BUN 11 Creatinine < 0.8 Random Glucose 97 Calcium 8.7 Phosphorus 2.8 Magnesium 2.3 Vancomycin Pre-Dose 20.560 H* Active Medications Generic Name Dose Route Start Last Admin Trade Name Freq PRN Reason Stop Dose Admin Albuterol Sulfate 1 amp 06/29/17 00:59 07/01/17 21:45 Ventolin 0.083% Nebulizer Soln - NEB 1 amp Q4H PRN Administration SHORT OF BREATH/WHEEZING Albuterol/Ipratropium 1 amp 06/29/17 12:00 07/03/17 08:40 Duoneb - NEB 1 amp RQID ERNETTA Administration Apixaban 2.5 mg 06/29/17 10:00 07/03/17 09:39 Eliquis - PO 2.5 mg BID RENETTA Administration Ascorbic Acid 500 mg 06/29/17 10:00 07/03/17 09:40 Vitamin C - PO 500 mg DAILY RENETTA Administration Atorvastatin Calcium 20 mg 06/29/17 22:00 07/02/17 21:19 Lipitor - PO 20 mg HS RENETTA Administration Cholecalciferol 1,000 unit 06/29/17 10:00 07/03/17 09:40 Vitamin D3 - PO 1,000 unit DAILY RENETTA Administration Duloxetine HCl 20 mg 06/29/17 10:00 07/02/17 21:19 Cymbalta - PO 20 mg BID RENETTA Administration Guaifenesin 10 ml 07/01/17 23:08 07/02/17 21:19 Robitussin - PO 10 ml Q4H PRN Administration COUGH Meropenem 1 gm/ Dextrose 100 mls @ 200 mls/hr 06/29/17 15:30 07/03/17 09:40 IVPB 200 mls/hr Q8H-IV RENETTA Administration Protocol Levothyroxine Sodium 112 mcg 06/29/17 07:15 07/03/17 06:29 Synthroid - PO 112 mcg DAILY@0700 RENETTA Administration Lisinopril 10 mg 07/03/17 10:00 07/03/17 09:40 Prinivil PO 10 mg DAILY RENETTA Administration Metoprolol Tartrate 25 mg 06/29/17 10:00 07/03/17 09:39 Lopressor - PO 25 mg BID RENETTA Administration Multivitamins 1 each 06/29/17 10:00 07/03/17 09:40 Total B With C - PO 1 each DAILY RENETTA Administration Multivitamins/Minerals 1 each 06/29/17 10:00 07/03/17 09:40 Theragran-M PO 1 each DAILY RENETTA Administration Pantoprazole Sodium 40 mg 06/29/17 10:00 07/03/17 09:40 Protonix - PO 40 mg DAILY RENETTA Administration Microbiology 06/29/17 00:05 Blood - Peripheral Venous Blood Culture - Preliminary NO GROWTH OBTAINED AFTER 96 HOURS, INCUBATION TO CONTINUE FOR 1 DAYS. 06/29/17 00:05 Blood - Peripheral Venous Blood Culture - Preliminary NO GROWTH OBTAINED AFTER 96 HOURS, INCUBATION TO CONTINUE FOR 1 DAYS. 06/29/17 17:50 Urine For Antigen Detection Legionella Antigen - Final, negative 06/29/17 17:50 Urine For Antigen Detection Streptococcus pneumoniae Antigen (M - Final, negative 06/30/17 18:30 Urine - Urine Clean Catch Urine Culture - Final NO GROWTH OBTAINED 06/29/17 00:14 Urine - Urine Clean Catch Urine Culture - Final Contaminated: Please Repeat IMAGING 06/28 CXR: unremarkable 06/29 CT chest: LLL consolidation/PNA; atelectasis v. infiltrates RLL; small bilateral pleural effusions 06/29 Echo: Grade I diastolic dysfunction; RV normal; mild MR; mild TR; mild AI ASSESSMENT/PLAN: 1) Sepsis secondary to pneumonia and influenza - resolved, pt is afebrile no leukocytosis noted - blood and urine cultures negative to date -continue meropenem (day #5), vanc (day #3)-->vancomycin discontinued -duonebs schedule, albuterol nebs PRN 2) cardiovascular Paroxysmal atrial fibrillation - rate well-controlled, continue metoprolol and Eliquis Hypertension - -BP at goal, continue metoprolol and lisinopril Hyperlipidemia -continue Lipitor Coronary artery disease -continue metoprolol, Lipitor Diastolic dysfunction - patient is evolemic on exam, strict i/o and daily weights h/o right posterior cerebral artery stroke - on Eliquis 3) endo Hypothyroidism -continue levothyroxine, tsh and t3 wnol 4) GI GERD - continue protonix FEN Fluids: PO intake adequate Electrolytes: replete as indicated Nutrition: low sodium DVT prophylaxis: on Eliquis Physical therapy evaluation discussed with patient's daughter Salina via phone, agrees with plan, all questions answered Dispo: continues to require inpatient care. Full code. Problem List - Problems (1) Pneumonia Code(s): J18.9 - PNEUMONIA, UNSPECIFIED ORGANISM (2) Atrial fibrillation Code(s): I48.91 - UNSPECIFIED ATRIAL FIBRILLATION Qualifiers: Atrial fibrillation type: paroxysmal Qualified Code(s): I48.0 - Paroxysmal atrial fibrillation (3) GERD (gastroesophageal reflux disease) Code(s): K21.9 - GASTRO-ESOPHAGEAL REFLUX DISEASE WITHOUT ESOPHAGITIS Qualifiers: Esophagitis presence: without esophagitis Qualified Code(s): K21.9 - Gastro -esophageal reflux disease without esophagitis (4) Hypercholesteremia Code(s): E78.0 - PURE HYPERCHOLESTEROLEMIA * DO NOT USE * (5) Hypothyroid Code(s): E03.9 - HYPOTHYROIDISM, UNSPECIFIED Qualifiers: Hypothyroidism type: unspecified Qualified Code(s): E03.9 - Hypothyroidism , unspecified (6) Diastolic congestive heart failure Code(s): I50.30 - UNSPECIFIED DIASTOLIC (CONGESTIVE) HEART FAILURE Qualifiers: Heart failure chronicity: chronic Qualified Code(s): I50.32 - Chronic diastolic (congestive) heart failure (7) Sepsis Code(s): A41.9 - SEPSIS, UNSPECIFIED ORGANISM Visit type - Emergency Visit Emergency Visit: Yes ED Registration Date: 06/29/17 Care time: The patient presented to the Emergency Department on the above date and was hospitalized for further evaluation of their emergent condition. - New Patient This patient is new to me today: No - Critical Care Critical Care patient: No - Discharge Referral Referred to [facility] Med P.C.: No
--- NOTE | 2017-07-03 14:08 | PN ---
Progress Note, Physician History of Present Illness: stable still with cough but no sputum feels better - Current Medication List Current Medications: Active Medications Albuterol Sulfate (Ventolin 0.083% Nebulizer Soln -) 1 amp NEB Q4H PRN PRN Reason: SHORT OF BREATH/WHEEZING Last Admin: 07/01/17 21:45 Dose: 1 amp Albuterol/Ipratropium (Duoneb -) 1 amp NEB RQID [facility] Last Admin: 07/03/17 12:50 Dose: 1 amp Apixaban (Eliquis -) 2.5 mg PO BID [facility] Last Admin: 07/03/17 09:39 Dose: 2.5 mg Ascorbic Acid (Vitamin C -) 500 mg PO DAILY [facility] Last Admin: 07/03/17 09:40 Dose: 500 mg Atorvastatin Calcium (Lipitor -) 20 mg PO HS [facility] Last Admin: 07/02/17 21:19 Dose: 20 mg Cholecalciferol (Vitamin D3 -) 1,000 unit PO DAILY [facility] Last Admin: 07/03/17 09:40 Dose: 1,000 unit Duloxetine HCl (Cymbalta -) 20 mg PO BID [facility] Last Admin: 07/02/17 21:19 Dose: 20 mg Guaifenesin (Robitussin -) 10 ml PO Q4H PRN PRN Reason: COUGH Last Admin: 07/02/17 21:19 Dose: 10 ml Meropenem 1 gm/ Dextrose 100 mls @ 200 mls/hr IVPB Q8H-IV RENETTA PRN Reason: Protocol Last Admin: 07/03/17 09:40 Dose: 200 mls/hr Levothyroxine Sodium (Synthroid -) 112 mcg PO DAILY@0700 [facility] Last Admin: 07/03/17 06:29 Dose: 112 mcg Lisinopril (Prinivil) 10 mg PO DAILY [facility] Last Admin: 07/03/17 09:40 Dose: 10 mg Metoprolol Tartrate (Lopressor -) 25 mg PO BID [facility] Last Admin: 07/03/17 09:39 Dose: 25 mg Multivitamins (Total B With C -) 1 each PO DAILY [facility] Last Admin: 07/03/17 09:40 Dose: 1 each Multivitamins/Minerals (Theragran-M) 1 each PO DAILY [facility] Last Admin: 07/03/17 09:40 Dose: 1 each Pantoprazole Sodium (Protonix -) 40 mg PO DAILY [facility] Last Admin: 07/03/17 09:40 Dose: 40 mg - Objective Vital Signs: Vital Signs Temperature 97.5 F L 07/03/17 06:00 Pulse Rate 69 07/03/17 06:00 Respiratory Rate 19 07/03/17 08:54 Blood Pressure 141/66 07/03/17 06:00 O2 Sat by Pulse Oximetry (%) 100 07/03/17 08:54 Constitutional: Yes: No Distress, Calm Cardiovascular: Yes: Regular Rate and Rhythm Respiratory: Yes: Regular, CTA Bilaterally Gastrointestinal: Yes: Normal Bowel Sounds, Soft Musculoskeletal: Yes: WNL Extremities: Yes: WNL Neurological: Yes: Alert, Oriented Psychiatric: Yes: Alert, Oriented Labs: CBC, BMP 07/03/17 07:35 07/03/17 07:35 Assessment/Plan fever cough pna weakness wbc has normalized plan continue abx incentive ricci rest as per primary team continue current mgmt will switch to oral abx tomorrow
[2017-07-03] MEDS: ATORVASTATIN CA 20 MG TABLET (FP) PO SCH (21:35)
[2017-07-04] MEDS: MEROPENEM 1 GM in DEXTROSE 5%-WATER - 100 ML IVPB SCH ×2 (02:00→09:17)
[2017-07-04 06:47] VITALS: TEMP 97.5
[2017-07-04] MEDS: LEVOTHYROXINE NA 112 MCG TABLET (FP) PO SCH (07:06)
[2017-07-04] MEDS: ALBUTEROL SO4 2.5/IPRATROPIUM 0.5 INH SOL 3 ML VIAL.NEB. NEB SCH ×4 (08:45→17:58)
[2017-07-04] MEDS ORDERED: PT OWN MED DRAWER 7, Y5N ONE (09:10)
[2017-07-04] MEDS: MULTIVITAMINS THER W-MINERALS COMBO TABLET (FP) PO SCH (09:15)
[2017-07-04] MEDS: APIXABAN 2.5 MG TABLET PO SCH (09:15)
[2017-07-04] MEDS: CHOLECALCIFEROL (VITAMIN D3) 1,000 UNIT TABLET (FP) PO SCH (09:15)
[2017-07-04] MEDS: VITAMIN B COMPLEX W/C COMBO TABLET (FP) PO SCH (09:16)
[2017-07-04] MEDS: PANTOPRAZOLE 40 MG TABLET (FP) PO SCH (09:16)
[2017-07-04] MEDS: DULoxetine HCL 20 MG CAPSULE.DR (FP) PO SCH (09:16)
[2017-07-04] MEDS: METOPROLOL TARTRATE 25 MG TABLET (FP) PO SCH (09:16)
[2017-07-04] MEDS: ASCORBIC ACID 500 MG TABLET (FP) PO SCH (09:17)
[2017-07-04] MEDS: LISINOPRIL 10 MG TABLET (FP) PO SCH (09:17)
--- NOTE | 2017-07-04 11:46 | PN ---
Progress Note, Physician History of Present Illness: patient stable no new issues still with some cough - Current Medication List Current Medications: Active Medications Albuterol Sulfate (Ventolin 0.083% Nebulizer Soln -) 1 amp NEB Q4H PRN PRN Reason: SHORT OF BREATH/WHEEZING Last Admin: 07/01/17 21:45 Dose: 1 amp Albuterol/Ipratropium (Duoneb -) 1 amp NEB RQID [facility] Last Admin: 07/04/17 08:45 Dose: 1 amp Apixaban (Eliquis -) 2.5 mg PO BID [facility] Last Admin: 07/04/17 09:15 Dose: 2.5 mg Ascorbic Acid (Vitamin C -) 500 mg PO DAILY [facility] Last Admin: 07/04/17 09:17 Dose: 500 mg Atorvastatin Calcium (Lipitor -) 20 mg PO HS [facility] Last Admin: 07/03/17 21:35 Dose: 20 mg Cholecalciferol (Vitamin D3 -) 1,000 unit PO DAILY [facility] Last Admin: 07/04/17 09:15 Dose: 1,000 unit Duloxetine HCl (Cymbalta -) 20 mg PO BID [facility] Last Admin: 07/04/17 09:16 Dose: 20 mg Guaifenesin (Robitussin -) 10 ml PO Q4H PRN PRN Reason: COUGH Last Admin: 07/02/17 21:19 Dose: 10 ml Meropenem 1 gm/ Dextrose 100 mls @ 200 mls/hr IVPB Q8H-IV [facility]ETTA PRN Reason: Protocol Last Admin: 07/04/17 09:17 Dose: 200 mls/hr Levothyroxine Sodium (Synthroid -) 112 mcg PO DAILY@0700 [facility] Last Admin: 07/04/17 07:06 Dose: 112 mcg Lisinopril (Prinivil) 10 mg PO DAILY [facility] Last Admin: 07/04/17 09:17 Dose: 10 mg Metoprolol Tartrate (Lopressor -) 25 mg PO BID [facility] Last Admin: 07/04/17 09:16 Dose: 25 mg Multivitamins (Total B With C -) 1 each PO DAILY [facility] Last Admin: 07/04/17 09:16 Dose: 1 each Multivitamins/Minerals (Theragran-M) 1 each PO DAILY [facility] Last Admin: 07/04/17 09:15 Dose: 1 each Pantoprazole Sodium (Protonix -) 40 mg PO DAILY [facility] Last Admin: 07/04/17 09:16 Dose: 40 mg - Objective Vital Signs: Vital Signs Temperature 97.5 F L 07/04/17 06:00 Pulse Rate 78 07/04/17 06:00 Respiratory Rate 18 07/04/17 06:00 Blood Pressure 136/70 07/04/17 06:00 O2 Sat by Pulse Oximetry (%) 97 07/04/17 06:00 Constitutional: Yes: No Distress, Calm Cardiovascular: Yes: Regular Rate and Rhythm Respiratory: Yes: Regular, CTA Bilaterally Gastrointestinal: Yes: Normal Bowel Sounds, Soft Musculoskeletal: Yes: WNL Extremities: Yes: WNL Neurological: Yes: Alert, Oriented Psychiatric: Yes: Alert, Oriented Labs: CBC, BMP 07/03/17 07:35 07/03/17 07:35 Assessment/Plan fever cough pna weakness plan can switch to oral doxy 100 mg po bid for another 3 days when discharging rest continue current mgmt
--- NOTE | 2017-07-04 13:36 | DS ---
Physical Exam: SUBJECTIVE: Patient seen and examined, sitting up in bed eating breakfast, reports feeling much improved, dose report intermittent cough. patient denies any shortness of breath. OBJECTIVE:Patient is a 89 y/o female with a past medical history of afib ( eliquis), hypertension, hyperlipidemia, hypothyroidism, and cva. In addition, patient reports two weeks ago she was diagnosed with influenza and completed 5 day of tamiflu. Patient reports ongoing worsening cough within the past week with ongoing weakness. Within the past 24 hours, she developed worsening of malaise and as a result sought evaluation in the emergency department. ER course was notable for: (1) wbc 15.6 (2) lactic acid 2.1 (3) chest xray: no evidence of acute pulmonary disease Vital Signs Period Temp Pulse Resp BP Sys/Smith Pulse Ox Last 24 Hr 97.5 F-98.4 F 78-86 16-18 116-143/61-73 96-100 PHYSICAL EXAM GENERAL: The patient is awake, alert, and fully oriented, in no acute distress. HEAD: Normal with no signs of trauma. EYES: PERRL, extraocular movements intact, sclera anicteric, conjunctiva clear. No ptosis. ENT: Ears normal, nares patent, oropharynx clear without exudates, moist mucous membranes. NECK: Trachea midline, full range of motion, supple. LUNGS: Breath sounds equal, clear to auscultation bilaterally to apexes, diminished to bases bilaterally, no wheezes, no crackles, no accessory muscle use. HEART: Regular rate and rhythm, S1, S2 without murmur, rub or gallop. ABDOMEN: Soft, nontender, nondistended, normoactive bowel sounds, no guarding, no rebound, no hepatosplenomegaly, no masses. EXTREMITIES: 2+ pulses, warm, well-perfused, no edema. NEUROLOGICAL: Cranial nerves II through XII grossly intact. Normal speech, gait not observed. PSYCH: Normal mood, normal affect. SKIN: Warm, dry, normal turgor, no rashes or lesions noted LABS CBC WBC 5.3 K/mm3 (4.0-10.8) 07/03/17 07:35 RBC 3.96 M/mm3 (3.60-5.2) 07/03/17 07:35 Hgb 12.5 GM/dl (10.7-15.3) 07/03/17 07:35 Hct 36.0 % (32.4-45.2) 07/03/17 07:35 MCV 90.7 fl (80-96) 07/03/17 07:35 MCH 31.6 pg (25.7-33.7) 07/03/17 07:35 MCHC 34.9 g/dl (32.0-36.0) 07/03/17 07:35 RDW 13.6 % (11.6-15.6) 07/03/17 07:35 Plt Count 299 K/MM3 (134-434) 07/03/17 07:35 MPV 8.1 fl (7.5-11.1) 07/03/17 07:35 Neutrophils % 65.5 % (42.8-82.8) 07/03/17 07:35 Lymphocytes % 19.6 % (8-40) 07/03/17 07:35 Monocytes % 11.0 % (3.8-10.2) H 07/03/17 07:35 Eosinophils % 3.0 % (0-4.5) 07/03/17 07:35 Basophils % 0.9 % (0-2.0) 07/03/17 07:35 CMP Sodium 142 mmol/L (136-145) 07/03/17 07:35 Potassium 4.3 mmol/L (3.5-5.1) 07/03/17 07:35 Chloride 110 mmol/L (98-107) H 07/03/17 07:35 Carbon Dioxide 28 mmol/L (22-28) 07/03/17 07:35 Anion Gap 4 (8-16) L 07/03/17 07:35 BUN 11 mg/dl (7-18) 07/03/17 07:35 Creatinine < 0.8 mg/dl (0.6-1.3) 07/03/17 07:35 Creat Clearance w eGFR > 60 (>60) 07/02/17 07:25 Random Glucose 97 mg/dl (74-106) 07/03/17 07:35 Lactic Acid 1.4 mmol/L (0.0-2.0) 06/29/17 09:30 Calcium 8.7 mg/dl (8.4-10.2) 07/03/17 07:35 Phosphorus 2.8 mg/dl (2.5-4.6) 07/03/17 07:35 Magnesium 2.3 mg/dL (1.8-2.4) 07/03/17 07:35 Total Bilirubin 1.0 mg/dl (0.2-1.0) 07/02/17 07:25 AST 28 U/L (10-42) 07/02/17 07:25 ALT 37 U/L (10-40) 07/02/17 07:25 Alkaline Phosphatase 44 U/L (32-92) 07/02/17 07:25 Troponin I < 0.03 ng/ml (0.00-0.06) 06/28/17 22:45 Total Protein 5.7 g/dl (6.4-8.3) L 07/02/17 07:25 Albumin 2.7 g/dl (3.5-5.0) L 07/02/17 07:25 TSH 3.78 uIU/ml (0.358-3.74) H 06/29/17 09:30 Free T4 1.35 ng/dl (0.76-1.46) 06/29/17 09:30 IMAGING 06/28 CXR: unremarkable 06/29 CT chest: LLL consolidation/PNA; atelectasis v. infiltrates RLL; small bilateral pleural effusions 06/29 Echo: Grade I diastolic dysfunction; RV normal; mild MR; mild TR; mild AI HOSPITAL COURSE: 1) Sepsis secondary to pneumonia and influenza - resolved, pt is afebrile no leukocytosis noted - blood and urine cultures negative to date - treated with meropenem (day #6), vanc (day #3)-->vancomycin discontinued -duonebs schedule, albuterol nebs PRN 2) cardiovascular Paroxysmal atrial fibrillation - rate well-controlled, continue metoprolol and Eliquis Hypertension - -BP at goal, continue metoprolol and lisinopril Hyperlipidemia -continue Lipitor Coronary artery disease -continue metoprolol, Lipitor Diastolic dysfunction - patient is evolemic on exam, strict i/o and daily weights h/o right posterior cerebral artery stroke - on Eliquis 3)Hypothyroidism -continued levothyroxine, tsh and t3 wnol 4) GERD - continued protonix PLAN - discharge on doxycline as per ID Date of Admission:06/29/17 Date of Discharge: 07/04/17 Minutes to complete discharge: 45 Discharge Summary Reason For Visit: PNEUMONIA Current Active Problems Diastolic congestive heart failure (Acute) Pneumonia (Acute) Sepsis (Acute) Condition: Stable - Instructions Diet, Activity, Other Instructions: - continue doxycline (antibiotic) for the next 3 days - please take antibiotics as prescribed - continue all medications as prescribed - please follow up with Dr Fan within 1 week - if any new or persistent symptoms develop please return to the emergency department Referrals: Alfredo Fan MD [Primary Care Provider] - Disposition: VNS/HOME HEALTH CARE - Home Medications Comprehensive Discharge Medication List: Ambulatory Orders Acetaminophen [Tylenol] 650 mg PO QID 06/14/16 Apixaban [Eliquis] 2.5 mg PO BID 06/14/16 Atorvastatin Ca [Lipitor] 20 mg PO HS 06/14/16 Levothyroxine [Synthroid -] 112 mcg PO DAILY 06/14/16 Nitroglycerin [Nitrostat] 0.4 mg SL DAILY 06/14/16 Pantoprazole Sodium [Protonix] 40 mg PO DAILY 06/14/16 Duloxetine HCl [Cymbalta -] 20 mg PO BID 01/08/17 Lisinopril [Prinivil] 10 mg PO DAILY #30 tablet 01/12/17 Metoprolol Tartrate [Lopressor -] 25 mg PO BID #60 tablet 01/12/17 Ascorbic Acid [Vitamin C] 500 mg PO DAILY 06/16/17 Cholecalciferol (Vitamin D3) [Vitamin D3] 1,000 unit PO DAILY 06/16/17 Multivit-Min/Iron/Folic/Lutein [Centrum Silver Women Tablet] 1 each PO DAILY 02/21 Vitamin B Complex [B Complex] 1 each PO DAILY 06/16/17 Problem List - Problems (1) Pneumonia Code(s): J18.9 - PNEUMONIA, UNSPECIFIED ORGANISM (2) Atrial fibrillation Code(s): I48.91 - UNSPECIFIED ATRIAL FIBRILLATION Qualifiers: Atrial fibrillation type: paroxysmal Qualified Code(s): I48.0 - Paroxysmal atrial fibrillation (3) GERD (gastroesophageal reflux disease) Code(s): K21.9 - GASTRO-ESOPHAGEAL REFLUX DISEASE WITHOUT ESOPHAGITIS Qualifiers: Esophagitis presence: without esophagitis Qualified Code(s): K21.9 - Gastro -esophageal reflux disease without esophagitis (4) Hypercholesteremia Code(s): E78.0 - PURE HYPERCHOLESTEROLEMIA * DO NOT USE * (5) Hypothyroid Code(s): E03.9 - HYPOTHYROIDISM, UNSPECIFIED Qualifiers: Hypothyroidism type: unspecified Qualified Code(s): E03.9 - Hypothyroidism , unspecified (6) Diastolic congestive heart failure Code(s): I50.30 - UNSPECIFIED DIASTOLIC (CONGESTIVE) HEART FAILURE Qualifiers: Heart failure chronicity: chronic Qualified Code(s): I50.32 - Chronic diastolic (congestive) heart failure (7) Sepsis Code(s): A41.9 - SEPSIS, UNSPECIFIED ORGANISM This patient is new to me today: No Emergency Visit: Yes ED Registration Date: 06/29/17 Care time: The patient presented to the Emergency Department on the above date and was hospitalized for further evaluation of their emergent condition. Critical Care patient: No - Discharge Referral Referred to [facility] Med P.C.: No
[2017-07-04 14:26] VITALS: BP 127/71; PULSE 88
== END 2017-07-04 18:10 | disposition home health service (06) | DRG 871 ==
LOC: FER 21:30 → FM/S 06-29 00:47
PROVIDERS: ADMIT Internal Medicine; ATTEND Nurse Practitioner Family
PROC: 3E0F7GC Introduction of Other Therapeutic Substance into Respiratory Tract, Via Natural or Artificial Opening (ICD-10-PCS; principal; 2017-06-29)
DX: A41.9 Sepsis, unspecified organism (principal); J11.00 Influenza due to unidentified influenza virus with unspecified type of pneumonia; I25.110 Atherosclerotic heart disease of native coronary artery with unstable angina pectoris; J98.11 Atelectasis; I50.32 Chronic diastolic (congestive) heart failure; J90 Pleural effusion, not elsewhere classified; I08.3 Combined rheumatic disorders of mitral, aortic and tricuspid valves; I11.0 Hypertensive heart disease with heart failure; E78.5 Hyperlipidemia, unspecified; E03.9 Hypothyroidism, unspecified; K21.9 Gastro-esophageal reflux disease without esophagitis; I48.0 Paroxysmal atrial fibrillation; R50.9 Fever, unspecified; Z86.73 Personal history of transient ischemic attack (TIA), and cerebral infarction without residual deficits
CPT/HCPCS: 36415; 71045-TC-FY; 71250-TC; 80048; 80053; 81003; 81015; 83605; 83735; 84100; 84439; 84443; 84484; 85025; 85027; 87040; 87086; 87899; 93005; 93306-TC; 94010; 94640; 94761; 97116-GP; 97161-GP; 99282-25; G0480